=== PATIENT | female | born 1960 | race Caucasian/White ===

== ENCOUNTER 2022-07-27 08:23 | Outpatient (CLI) | payer OTHER, SELFPAY ==
--- OUTSIDE RECORDS SUMMARY | 2022-07-27 08:41 | XMS_ITS | Encounter Summary ---
:1960 Author Organization [place] Address [address] [place] [address] Care Team Providers Name Role Phone Taty Jacob Primary Care Provider Reason for Visit (Routine) - Closed Specialty Diagnoses / Procedures Referred By Contact Refer red To Contact Radiology / Radiology. Diagnoses Written Order. Nuclear Medicine Procedures NM INJECT [address] [place] [address] Phone: Referral ID Status Reason Start Date Expiration Date Visits Requ ested Visits Authorized [id number] Closed 02/22/2019 02/22/2020 1 1 Encounter Details Date Type Department Care Team Description 02/22/2019 Hospital Encounter [facility] Kelsi Estevez, Lalitha Imaging [address] [place] [address] [facility] [phone] [address] [place] [address] (Wo rk) Social History Tobacco Use Types Packs/Day Years Used Date Smoking Tobacco: Former Cigarettes 1 20 Smokeless Tobacco: Never Comments: 07/2008 Alcohol Use Standard Drinks/Week Comments Yes 0 (1 standard drink = 0.6 oz pure alcoho l) very little Sex Assigned at Date Recorded Not on file documented as of this encounter Medications at Time of Discharge Medication Sig Dispensed Refills Start Date End Date CALCIUM + D 600-200 ONE TABLET DAily 0 12/17/2009 MG-UNIT PO TABS WITH MEALS cholecalciferol (VITAMIN Take 1 tablet by 0 11/07 D) 1000 UNIT tablet mouth daily. docusate sodium 100 MG Take 100 mg by mouth 60 tablet 1 tablet 2 times daily fish oil-omega-3 fatty Take 3 capsules by 0 11/07 acids (FISH OIL) 1000 MG mouth daily. Pt is capsule taking 3000 mg total per day Nkglmqlblaq-Gqzpjihzx-Rhj Take by mouth. 0 2011 C-Mn (GLUCOSAMINE 1500 COMPLEX) CAPS ibuprofen (ADVIL,MOTRIN) Take 1 tablet by 100 tablet 0 03/09 800 MG tabletIndications: mouth every 8 hours Neck pain as needed for pain. Minoxidil (ROGAINE EX) Externally apply 0 topically. MULTI-VITAMIN OR TABS ONE TABLET DAILY 3 12/18/19 10 polyethylene glycol Take 17 g by mouth 510 g 1 09/13/19 14 (MIRALAX) daily as needed powderIndications: Constipation documented as of this encounter Plan of Treatment Not on filedocumented as of this encounter Procedures Procedure Name Priority Date/Time Associated Diagnosis Comme nts NM PARATHYROID Routine 02/22/2019 11:11 Hyperparathyroidism (H ) Results for this PLANAR W/SPECT & CT AM CDT procedur e are in DUAL the results section. documented in this encounter Results NM Parathy Plnr Img w Helder Spect & CT (02/22/2019 11:11 AM CDT) Anatomical Region Laterality Modality Neck Nuclear Medicine Specimen (Source) Anatomical Location Collection Method / Collectio n Time Received Time / Laterality Volume Impressions 02/22/2019 3:51 PM CDT IMPRESSION: Large mass measuring up to 3.7 cm posterior to the right lobe of the thyroid with imaging charact eristics of a parathyroid adenoma. However, this is much larger th an expected and malignancy cannot be excluded. Consider biopsy. CANYD HINES MD Narrative 02/22/2019 3:51 PM CDT NUCLEAR MEDICINE PARATHYROID DUAL ISOTOPE WITH HELDER (SPECT) AND CT 02/22/2019 11:11 AM HISTORY: Hyperparathyroidism (H). COMPARISON: None. TECHNIQUE: The patient received I-123 or ally and Tc-99 Cardiolite injected intravenously. Dynamic images w ere obtained of the thyroid gland following Cardiolite administratio n. Iodine images were obtained of the thyroid with subtraction from the Cardiolite images. SPECT CT images obtained for possible localizatio n. DOSE: 955 uCi I-123 caps @0735. 28.8 mCi Tc-99m MIBI @0945 FINDINGS: There is a large low-density n odule measuring 3.4 x 3.7 cm posterior to the right lobe of the thyro id (series 1002, image 53) that demonstrates sestamibi uptake and n o iodine uptake. Procedure Note Candy Hines MD - 02/22/2019Forma tting of this note might be different from the original. NUCLEAR MEDICINE PARATHYROID DUAL ISOTOP E WITH HELDER (SPECT) AND CT 02/22/2019 11:11 AM HISTORY: Hyperparathyroidism (H). COMPARISON: None. TECHNIQUE: The patient received I-123 or ally and Tc-99 Cardiolite injected intravenously. Dynamic images w ere obtained of the thyroid gland following Cardiolite administratio n. Iodine images were obtained of the thyroid with subtraction from the Cardiolite images. SPECT CT images obtained for possible localizatio n. DOSE: 955 uCi I-123 caps @0735. 28.8 mCi Tc-99m MIBI @0945 FINDINGS: There is a large low-density n odule measuring 3.4 x 3.7 cm posterior to the right lobe of the thyro id (series 1002, image 53) that demonstrates sestamibi uptake and n o iodine uptake. IMPRESSION: Large mass measuring up to 3 .7 cm posterior to the right lobe of the thyroid with imaging charact eristics of a parathyroid adenoma. However, this is much larger th an expected and malignancy cannot be excluded. Consider biopsy. CANDY HINES MD Kelsi Estevez MD [facility] [place] documented in this encounter Visit Diagnoses Not on filedocumented in this encounter Administered Medications Inactive Administered Medications - up to 3 most recent administrations Medication Order MAR Action Action Date Dose Rate Site technetium sestamibi 1 UD Given 02/22/2019 9:45 AM 28.8 millicur ies per study (Tc99m MiBi) CDT radioisotope injection 25 millicurie 25 millicurie, Intravenous, ONCE, On Jes 02/22/19 at 0945, For 1 dose, Radioisotope, supplied by and administered by Nuclear Medicine. *HW* documented in this encounter Care Teams Software Engineering Supervisor Relationship Specialty Start Date End Date Taty Jacob PCP - General Nurse Practitioner 10/11/13 [facility] [address] [place] [address] documented as of this encounter
--- OUTSIDE RECORDS SUMMARY | 2022-07-27 08:41 | XMS_ITS | Encounter Summary ---
:1960 Author Organization [place] Address [address] [place] [address] Care Team Providers Name Role Phone Taty Jacob Primary Care Provider Encounter Details Date Type Department Care Team Description 01/29/2017 Telephone [facility] Nurse Eva Galeana RN [facility] [address] [place] [address] Social History Tobacco Use Types Packs/Day Years Used Date Smoking Tobacco: Former Cigarettes 1 20 Smokeless Tobacco: Never Comments: 07/2008 Alcohol Use Standard Drinks/Week Comments Yes 0 (1 standard drink = 0.6 oz pure alcoho l) very little Sex Assigned at Date Recorded Not on file documented as of this encounter Miscellaneous Notes Telephone Encounter - Emma Galeana RN - 01/29/2017 8:43 AM CDT [facility]NA Triage Call Presenting Problem:I have had knee and hip replacements and before a dental procedure I need an RX for an antibiotic.I always get it from the dentist. I do not have any refill on this RX. Patient Recommendations/Teaching: Pt will call dental emergency number Routed to:none Emma Galeana RN [facility] documented in this encounter Plan of Treatment Not on filedocumented as of this encounter Visit Diagnoses Not on filedocumented in this encounter Care Teams Acid Supervisor Relationship Specialty Start Date End Date Taty Jacob PCP - General Nurse Practitioner 10/11/13 [facility] [address] [place] [address] documented as of this encounter
--- OUTSIDE RECORDS SUMMARY | 2022-07-27 08:41 | XMS_ITS | Clinical Summary ---
:1960 Author Organization [facility] [place] [address] Care Team Providers Name Role Phone Jordan Flood Phys Of Primary Care Provider Unavailable Allergies Active Allergy Reactions Severity Noted Date Comments Latex Rash 12/17/2009 Rash, redness, swelling Penicillins Anaphylaxis High 02/03/2019 Medications Medication Sig Dispensed Refills Start Date End Date Status finasteride (PROSCAR) 5 Take 2.5 mg by 0 12/18/2021 Active mg tablet mouth once daily. multivitamin Take 1 Capsule by 0 03/18/2022 Active capsuleIndications: mouth once daily. History of colon polyps, Polyp of colon, unspecified part of colon, unspecified type Active Problems Problem Noted Date Colon polyp 03/23/2022 Overview: Colonoscopy 03/2022 TA, repeat in 5 years , [facility] at [facility] Immunizations Name Administration Dates Next Due Tdap 02/03/2019 Social History Tobacco Use Types Packs/Day Years Used Date Smoking Tobacco: Former Smokeless Tobacco: Never Tobacco Cessation: Counseling Given: Yes Sex Assigned at Date Recorded Not on file Obstetrics History Last Filed Vital Signs Vital Sign Reading Time Taken Comments Blood Pressure 155/85 02/03/2019 6:39 PM CDT Pulse 77 02/03/2019 6:39 PM CDT Temperature 36.5 ??C (97.7 ??F) 02/03/2019 6:39 PM CDT Respiratory Rate 16 02/03/2019 6:39 PM CDT Oxygen Saturation 97% 02/03/2019 6:39 PM CDT Inhaled Oxygen Concentration - - Weight 127 kg (280 lb) 02/03/2019 6:39 PM CDT Height - - Body Mass Index - - Plan of Treatment Health Maintenance Due Date Last Done Comments Depression screening for age 12+ 1970 HIV for age 15-65 1973 BMI (ht and wt on same day) for age 0411/18/1976 18+ Hepatitis C screening for age 18-79 1976 Pap test for age 21-65 11/19/1979 Lipids for age 45-75 11/19/2003 Mammogram for age 45-75 11/19/2003 Zoster (shingles) series for age 50+ 2008 (1 of 2) COVID-19 vaccine series (4 - Booster 09/27/2021 08/02/2021, 11/28/2020, for Moderna series) 10/31/2020 Influenza for age 50-64 04/15/2022 Colonoscopy through age 75 03/18/2027 03/18/2022, , 03/18/2022 Tetanus booster 02/03/2029 02/03/2019 Tdap Completed 02/03/2019 Results Not on filefrom Last 3 Months Insurance Payer Benefit Plan / Subscriber ID Effective Dates Phone Addre ss Type Group WC WORKERS COMP WC [place] [id number] 2020-Prese [address] [facility] [address] [place] [address] PREFERRED ONE PREFERRED ONE [id number] 2020-Presen [address] [place] [address] [address] [place] [place] [address] Annalisa Jacob Workers Comp Self 1960 [id number] [place] [address] Annalisa Jacob Personal/Family Self 1960 [address] [place]) [place] [address] Care Teams Sprinkling System Installer Relationship Specialty Start Date End Date Jordan Flood Phys Of PCP - General 02/03/19
--- OUTSIDE RECORDS SUMMARY | 2022-07-27 08:41 | XMS_ITS | Clinical Summary ---
:1960 Author Organization [facility] Address [address] [place] [address] Care Team Providers Name Role Phone Taty Jacob Primary Care Provider Allergies Active Allergy Reactions Severity Noted Date Comments Latex 12/17/2009 Rash, redness, swelling Penicillins 12/13/2003 Medications Medication Sig Dispensed Refills Start Date End Date Status MULTI-VITAMIN OR TABS ONE TABLET DAILY 3 12/17/2009 Active CALCIUM + D 600-200 ONE TABLET DAily 0 12/17/2009 Active MG-UNIT PO TABS WITH MEALS ibuprofen Take 1 tablet by 100 tablet 0 03/09/2011 A ctive (ADVIL,MOTRIN) 800 MG mouth every 8 tabletIndications: hours as needed Neck pain for pain. Glucosamine-Chondroit- Take by mouth. 0 11/08/2011 Active Vit C-Mn (GLUCOSAMINE 1500 COMPLEX) CAPS cholecalciferol Take 1 tablet by 0 11/08/2011 Active (VITAMIN D) 1000 UNIT mouth daily. tablet fish oil-omega-3 fatty Take 3 capsules 0 11/08/2011 Active acids (FISH OIL) 1000 by mouth daily. MG capsule Pt is taking 3000 mg total per day Minoxidil (ROGAINE EX) Externally apply 0 Active topically. docusate sodium 100 MG Take 100 mg by 60 tablet 1 09/13/2013 Active tablet mouth 2 times daily polyethylene glycol Take 17 g by 510 g 1 09/13/2013 Active (MIRALAX) mouth daily as powderIndications: needed Constipation Active Problems Problem Noted Date Right hip pain 06/04/2013 Osteoarthritis of both hips 06/04/2013 Weight loss, intentional 03/16/2013 S/P hysterectomy 03/04/2013 Basal cell carcinoma of multiple sites 03/04/2013 Abnormal glucose 12/15/2012 Overview: Problem list name updated by automated p rocess. Provider to review Alopecia 12/06/2012 Lumbago 11/21/2012 Left hip pain 11/21/2012 SI (sacroiliac) joint dysfunction 11/08/2012 Tubular adenoma 11/08/2011 Hyperplastic colon polyp 11/08/2011 Obesity, Class III, BMI 40-49.9 (morbid obesity) 11/07 Anxiety 08/31/2010 Achilles bursitis or tendinitis 06/17/2010 CARDIOVASCULAR SCREENING; LDL GOAL LESS THAN 160 06/14 Elevated blood pressure reading without diagnosis of h ypertension 01/02/2009 Backache 02/14/2006 Overview: Problem list name updated by automated p rocess. Provider to review Pain in limb 02/14/2006 Resolved Problems Problem Noted Date Resolved Date Sacroiliac strain 05/24/2012 06/28/2012 Pain in joint, pelvic region and thigh 05/14/2010 1 Aftercare following joint replacement 01/13/2010 Knee joint replacement by other means 01/13/2010 Achilles tendinitis 03/08/2008 04/18/2008 Tobacco use disorder 02/04/2005 12/04/2008 Obesity 02/04/2005 12/06/2012 Overview: Problem list name updated by automated p rocess. Provider to review Immunizations Name Administration Dates Next Due Influenza (IIV3) PF 06/06/2012, 06/15/2008 TD (ADULT, 7+) 07/15/2003 Tdap (Adacel,Boostrix) 06/06/2012 Family History Medical History Relation Comments Obesity Brother 1 Respiratory Father sarcoidosis Cancer Maternal Grandfather at 50's-60 's YOA, stomach CA Neurologic Disorder Maternal Grandmother at 80's, h ad alzheimer's Family History Negative Mother Cancer Paternal Grandfather 60's of aj ng [place],smoker C.A.D. Paternal Grandmother late 30's of [place] Obesity Sister 1-HTN Breast Cancer No family hx of Cancer - colorectal No family hx of Relation Status Comments Brother Father Alive Maternal Grandfather Maternal Grandmother Mother Alive Paternal Grandfather Paternal Grandmother Sister Social History Tobacco Use Types Packs/Day Years Used Date Smoking Tobacco: Former Cigarettes 1 20 Smokeless Tobacco: Never Comments: 07/2008 Alcohol Use Standard Drinks/Week Comments Yes 0 (1 standard drink = 0.6 oz pure alcoho l) very little Sex Assigned at Date Recorded Not on file Last Filed Vital Signs Vital Sign Reading Time Taken Comments Blood Pressure 130/83 10/11/2013 9:46 AM MILL HOUSE SUPERVISOR Pulse 77 10/11/2013 9:46 AM MILL HOUSE SUPERVISOR Temperature 36.8 ??C (98.3 ??F) 10/11/2013 9:46 AM MILL HOUSE SUPERVISOR Respiratory Rate 18 10/11/2013 9:46 AM MILL HOUSE SUPERVISOR Oxygen Saturation 99% 10/11/2013 9:46 AM MILL HOUSE SUPERVISOR Inhaled Oxygen Concentration - - Weight 117.9 kg (260 lb) 10/11/2013 9:46 AM MILL HOUSE SUPERVISOR Height 180.3 cm (5' 11) 10/11/2013 9:46 AM MILL HOUSE SUPERVISOR Body Mass Index 36.26 10/11/2013 9:46 AM MILL HOUSE SUPERVISOR Plan of Treatment Health Maintenance Due Date Last Done Comments ADVANCE CARE PLANNING 1960 ANNUAL REVIEW OF HM ORDERS 1960 CT COLONOGRAPHY 1960 FIT-DNA (Cologuard) 1960 FIT 1960 FLEX SIG 1960 COVID-19 Vaccine (#1) 05/20/1959 HIV SCREENING 1973 HEPATITIS C SCREENING 1976 LUNG CANCER SCREENING 2008 YEARLY PREVENTIVE VISIT 11/07/2012 11/08/2011, 12/04/2008, 02/11/2006, Additional history exists DEXA 11/15/2014 11/16/2011, 06/12/2009, 04/12/2006, Additional history exists MAMMO SCREENING 03/22/2015 03/22/2013, 02/07/2012, 02/04/2011, Additional history exists LIPID 12/07/2017 12/07/2012, 11/08/2011, 12/17/2009, Additional history exists ZOSTER IMMUNIZATION (2 of 02/07/2019 12/13/2018 2) PHQ-2 (once per calendar 08/15/2021 year) COLONOSCOPY 12/02/2021 12/03/2011, 03/03/2009 COLORECTAL CANCER 12/02/2021 SCREENING INFLUENZA VACCINE (#1) 2022 05/17/2017, 05/25/2016, 06/03/2015, Additional history exists DTAP/TDAP/TD IMMUNIZATION 06/06/2022 06/06/2012, 01/29/2004 , (4 - Td or Tdap) 07/15/2003 PAP Discontinued 12/04/2008, 02/11/2006, 12/04/2002, Additional history exists IPV IMMUNIZATION Aged Out No longer eligi ble based on patient 's age to complete this topic MENINGITIS IMMUNIZATION Aged Out No longe r eligible based on patient 's age to complete this topic Pneumococcal Vaccine: Aged Out No longer eligible Pediatrics (0 to 5 Years) based on patient's age and At-Risk Patients (6 to to co mplete this topic 64 Years) Insurance Payer Benefit Plan / Subscriber ID Effective Phone Address T ype Group Dates WORK COMP WC OTHER [id number] 2011-Pres [phone] [place] [address] PREFERREDONE PREFERREDONE [place] [id number] 2012-Prese [phone] [address] PPO ADVANTAGE nt [address] [place] [address] [phone] [facility] [address] (Home) [place], [place] [phone] (Work) Annalisa Jacob Personal/Family Self [phone] [id number] [facility] [address] (Home) [place], [place] [phone] (Work) [id number],STAT Worker's Employer 1960 [phone] [employer] [employer] [place] Compensation [address] ([address]) [address] [place] [address] Care Teams Receiving And Processing Supervisor Relationship Specialty Start Date End Date Taty Jacob PCP - General Nurse Practitioner 10/11/13 [facility] [address] [place] [address]
--- OUTSIDE RECORDS SUMMARY | 2022-07-27 08:41 | XMS_ITS | Encounter Summary ---
:1960 Author Organization [place] Address [facility] [place] [address] Care Team Providers Name Role Phone Pam Walters MD Primary Care Provider Reason for Visit (Routine) - Closed Specialty Diagnoses / Procedures Referred By Contact Refer red To Contact Radiology / Radiology. Diagnoses R#NA, Epic Order, Time per Eriberto Sh Xray Procedures XR JOINT INJ ASP [facility] RT [address] [place] [address] Phone: Referral ID Status Reason Start Date Expiration Date Visits Requ ested Visits Authorized [id number] Closed 08/13/2013 08/10/2014 1 1 Encounter Details Date Type Department Care Team Description 08/14/2013 Hospital Encounter [facility] Jason Logan Imaging MD Je [address] [facility] [place] [address] PA [phone] [facility] [address] [place] [address] (Wo rk) Social History Tobacco Use Types Packs/Day Years Used Date Smoking Tobacco: Former Cigarettes 1 20 Smokeless Tobacco: Never Comments: 07/2008 Alcohol Use Standard Drinks/Week Comments Yes 0 (1 standard drink = 0.6 oz pure alcoho l) very little Sex Assigned at Date Recorded Not on file documented as of this encounter Last Filed Vital Signs Vital Sign Reading Time Taken Comments Blood Pressure 147/96 08/14/2013 11:29 AM EVENTS AND PROMOTIONS ASSISTANT Pulse 93 08/14/2013 11:29 AM EVENTS AND PROMOTIONS ASSISTANT Temperature - - Respiratory Rate - - Oxygen Saturation 98% 08/14/2013 11:29 AM EVENTS AND PROMOTIONS ASSISTANT Inhaled Oxygen Concentration - - Weight - - Height - - Body Mass Index - - documented in this encounter Discharge Instructions Discharge InstructionsChastity Roberts - 08/14/2013 11:36 AM CST Orthopedic Discharge Instructions: After Your Injection or Aspiration Patient Name: Annalisa Jacob Today's Date: August 14, 2013 The doctor who performed your {IR RAD ORTHO INJECTION/ASPERATION PROCEDURE:[id number]} was Dr[facility] in the General radiology Department Care of needle site ?? If you have new numbness down your leg, this may last up to 6 hours, but it should go away. You may need help with walking until your leg feels normal. ?? Over the next 24 to 48 hours, pain at the needle site may increase before it gets better. ?? For the next 48 hours, use ice packs for 15 minutes, three to four times a day for pain. ?? If you have a bandage, you may remove it the next morning. ?? No tub baths, hot tubs or swimming for 48 hours. You may shower the next day. Activity ?? Do not drive until morning. ?? Limit your activity based on your pain level. Follow your doctor???s orders for activity. ?? You may eat a normal diet. ?? If you had sedation, - You may feel sleepy, forgetful or unsteady. - Do not drink alcohol for 24 hours. Medicines ?? If you take aspirin or platelet inhibitors, you can restart them tomorrow. ?? Restart all other medicines today at your regular dose, including Coumadin (warfarin). ?? If you are restarting Coumadin, talk to your doctor about having your INR checked. If you had a steroid shot ?? The medicine should help reduce swelling and pain. This may take from 7 to 10 days. ?? Side effects from the shot will be mild and go away in 2 to 3 days. Common side effects may include: - Insomnia (trouble sleeping). - Heartburn. - Flushed face. - Water retention (bloating or fluid build-up). - Increased appetite (feeling more hungry than usual). - Increased blood sugar. If you have diabetes, watch your blood sugar closely. If needed, call your doctor to help you control your blood sugar. Some patients will get lasting relief from a single shot. Others may require up to three shots to get results. If you have more than one steroid shot, they should be given two weeks apart. Some patients do not have relief of symptoms. Follow-up: With your Doctor Call your doctor or go to the Emergency Room if you have severe pain, fever or problems with bowel or bladder control. TS AND PROMOTIONS ASSISTANT documented in this encounter Medications at Time of Discharge Medication Sig Dispensed Refills Start Date End Date CALCIUM + D 600-200 ONE TABLET DAily 0 12/17/2009 MG-UNIT PO TABS WITH MEALS cholecalciferol (VITAMIN Take 1 tablet by 0 11/07 D) 1000 UNIT tablet mouth daily. fish oil-omega-3 fatty Take 3 capsules by 0 11/07 acids (FISH OIL) 1000 MG mouth daily. Pt is capsule taking 3000 mg total per day Wkdsyzserlo-Zzfzduamo-Nd Take by mouth. 0 012 t C-Mn (GLUCOSAMINE 1500 COMPLEX) CAPS ibuprofen (ADVIL,MOTRIN) Take 1 tablet by 100 tablet 0 03/09 800 MG mouth every 8 hours tabletIndications: Neck as needed for pain. pain Minoxidil (ROGAINE EX) Externally apply 0 topically. MULTI-VITAMIN OR TABS ONE TABLET DAILY 3 12/18/19 10 docusate sodium 100 MG Take 100 mg by mouth 60 tablet 1 09/13/2013 tablet daily as needed for constipation polyethylene glycol Take 17 g by mouth 2 510 g 1 201209/13/2013 (MIRALAX) powder times daily UNABLE TO Take 3.75 mg by 14 tablet 0 07/25/2013 4 FINDIndications: Morbid mouth every morning obesity (H) Qsymia 3.75/23mg UNABLE TO Qsymia 7.5mg/46mg 30 tablet 1 07/25/2013 014 FINDIndications: Morbid Si tablet in am obesity (H) documented as of this encounter Plan of Treatment Not on filedocumented as of this encounter Procedures Procedure Name Priority Date/Time Associated Diagnosis Comme nts XR JOINT INJECTION Routine 08/14/2013 12:06 Osteoarthritis of left Results for this MAJOR RIGHT PM EVENTS AND PROMOTIONS ASSISTANT hip procedure are i n the results section. documented in this encounter Visit Diagnoses Not on filedocumented in this encounter Administered Medications Inactive Administered Medications - up to 3 most recent administrations Medication Order MAR Action Action Date Dose Rate Site BUPivacaine (MARCAINE) injection Given 08/14/2013 12:05 PM EVENTS AND PROMOTIONS ASSISTANT 4 mLs 0.5% 150 mg (30 mL), INTRA-ARTICULAR, ONCE, On Tue08/14/13 at 1200, For 1 dose iopamidol ([id number]) 41% solution 10 mL Given 08/14/2013 11:57 AM EVENTS AND PROMOTIONS ASSISTANT 2 mLs 10 mL, INTRA-ARTICULAR, ONCE, On Tue08/14/13 at 1200, For 1 dose Lidocaine 1 % injection 5 mL Given 08/14/2013 11:56 AM EVENTS AND PROMOTIONS ASSISTANT 3 mLs 5 mL, Injection, ONCE, On Tue08/14/13 at 1200, For 1 dose triamcinolone acetonide (KENALOG-40) Given 08/14/2013 12:[address] 40 mg injection 40 mg 40 mg, INTRA-ARTICULAR, ONCE, On Tue08/14/13 at 1200, For 1 dose documented in this encounter Care Teams Lens Grinder Rough Relationship Specialty Start Date End Date Pam Walters MD PCP - General Family Practice 03/12/10 10/10/[address] [address] documented as of this encounter
--- OUTSIDE RECORDS SUMMARY | 2022-07-27 08:41 | XMS_ITS | Encounter Summary ---
:1960 Author Organization [facility] Address [address] [place] [address] Care Team Providers Name Role Phone CecilTaty Primary Care Provider Encounter Details Date Type Department Care Team Description 02/22/2019 Travel Social History Tobacco Use Types Packs/Day Years Used Date Smoking Tobacco: Former Cigarettes 1 20 Smokeless Tobacco: Never Comments: 07/2008 Alcohol Use Standard Drinks/Week Comments Yes 0 (1 standard drink = 0.6 oz pure alcoho l) very little Sex Assigned at Date Recorded Not on file documented as of this encounter Plan of Treatment Not on filedocumented as of this encounter Visit Diagnoses Not on filedocumented in this encounter Care Teams Foot Gatherer Relationship Specialty Start Date End Date Taty Jacob PCP - General Nurse Practitioner 10/11/13 [facility] [address] [place] [address] documented as of this encounter
--- OUTSIDE RECORDS SUMMARY | 2022-07-27 08:41 | XMS_ITS | Encounter Summary ---
:1960 Author Organization [facility] Address [address] [place] [address]. [place] [address] Care Team Providers Name Role Phone Pam Walters MD Primary Care Provider Reason for Visit Reason Comments Weight Problem patients here for med check on Qsymia Encounter Details Date Type Department Care Team Description 09/13/2013 Office Visit [facility] Shelia Obesity, Cl ass III, BMI 40-49.9 (morbid obesity) (H) (Primary Dx); Weight Loss Clinic - MD K[facility] [address] [place] [address] [address] [place] [address] Social History Tobacco Use Types Packs/Day Years Used Date Smoking Tobacco: Former Cigarettes 1 20 Smokeless Tobacco: Never Comments: 07/2008 Alcohol Use Standard Drinks/Week Comments Yes 0 (1 standard drink = 0.6 oz pure alcoho l) very little Sex Assigned at Date Recorded Not on file documented as of this encounter Last Filed Vital Signs Vital Sign Reading Time Taken Comments Blood Pressure 132/84 09/13/2013 10:33 AM OCCUPATIONAL THER Pulse 93 09/13/2013 10:33 AM OCCUPATIONAL THER Temperature 36.5 ??C (97.7 ??F) 09/13/2013 10:33 AM OCCUPATIONAL THER Respiratory Rate 18 09/13/2013 10:33 AM OCCUPATIONAL THER Oxygen Saturation 100% 09/13/2013 10:33 AM OCCUPATIONAL THER Inhaled Oxygen Concentration - - Weight 117.5 kg (259 lb) 09/13/2013 10:33 AM OCCUPATIONAL THER Height 180.3 cm (5' 11) 09/13/2013 10:33 AM OCCUPATIONAL THER Body Mass Index 36.12 09/13/2013 10:33 AM OCCUPATIONAL THER documented in this encounter Progress Notes Shelia Cowart MD - 09/13/2013 10:25 AM CST Medical Weight Loss - Medication Check CHIEF COMPLAINT: Chief Complaint Patient presents with ??? Weight Problem patients here for med check on Qsymia HISTORY OF PRESENT ILLNESS (HPI): Patient returns today for medical weight loss follow-up visit. Patient was last seen by me on 08/01/2013 and has lost 7 pounds. Patient is surprised by her weight loss-didn't think she was losing weight. She continues on Qsymia-started after last visit and is now completing first month of 7.5mg/46mg dose. She denies adverse side effects of this medication including drowsiness or paresthesia She desires to continue Qsymia. She is no longer on metformin due to side effect of constipation-see last visit. Reports constipation improved since last visit. Using colace daily and polyethylene glycol 3-4 times a week. Denies abdominal pain. She continues dietary efforts-admits diet challenging over holidays.Patient is not seeing dietitian Today Continues her exercise program-mostly swimming. PAVS =315. Patient is not seeing PT today MEDICATIONS: Current Outpatient Prescriptions Medication Sig ??? docusate sodium 100 MG tablet Take 100 mg by mouth 2 times daily ??? polyethylene glycol (MIRALAX) powder Take 17 g by mouth daily as needed ??? UNABLE TO FIND Qsymia 7.5mg/46mg Si tablet in am ??? Minoxidil (ROGAINE EX) Externally apply topically. ??? Gpoorqczsqj-Dwlhoewys-Asq C-Mn (GLUCOSAMINE 1500 COMPLEX) CAPS Take by mouth. ??? cholecalciferol (VITAMIN D) 1000 UNIT tablet Take 1 tablet by mouth daily. ??? fish oil-omega-3 fatty acids (FISH OIL) 1000 MG capsule Take 3 capsules by mouth daily. Pt is taking 3000 mg total per day ??? ibuprofen (ADVIL,MOTRIN) 800 MG tablet Take 1 tablet by mouth every 8 hours as needed for pain. ??? MULTI-VITAMIN OR TABS ONE TABLET DAILY ??? CALCIUM + D 600-200 MG-UNIT PO TABS ONE TABLET DAily WITH MEALS ??? [DISCONTINUED] UNABLE TO FIND Take 3.75 mg by mouth every morning Qsymia 3.75/23mg ALLERGIES: Allergies Allergen Reactions ??? Latex Rash, redness, swelling ??? Penicillins PHYSICAL EXAMINATION: VITALS: BP 132/84 Pulse 93 Temp 97.7 ??F (36.5 ??C) (Oral) Resp 18 Ht 1.803 m (5' 11) Wt 117.482 kg (259 lb) BMI 36.14 kg/m2 SpO2 100% ? No GENERAL: Patient is a 52 year old year old female in no acute distress. Patient is alert and orientated x 4, pleasant and cooperative with exam. CARDIOVASCULAR: Regular rate and rhythm without murmurs, rubs, or gallops. RESPIRATORY: Lungs are clear to auscultation bilaterally, respiratory effort is normal. ASSESSMENT/PLAN: 1. Obesity, Class III, BMI 40-49.9 (morbid obesity) 2. Constipation PLAN: Continue Qsymia 7.5mg/46mg q day. Patient will call if needs refill prior to next visit. Has one month supply left currently. Patient advised to return to the clinic in 4-6 Weeks. Patient is to call the clinic if she experiences any adverse reactions. All of patient's questions were answered today. Follow-up with bariatric dietitian. Follow-up with bariatric physical therapist/continue exercise program ORDERS PLACED IN TODAY'S VISIT: No orders of the defined types were placed in this encounter. PATIONAL THER documented in this encounter Nursing Notes 09/13/2013 10:20 AM CST >> JUANY HOLLIS [facility] Sep 13, 2013 10:41 AM PAVS: 315 >> KARLEY NUNEZ [facility] Sep 13, 2013 10:37 AM Patient presents with: Weight Problem - patients here for med check on Phentermnie and Topiramate Initial BP 132/84 Pulse 93 Temp 97.7 ??F (36.5 ??C) (Oral) Resp 18 Ht 1.803 m (5' 11) Wt 117.482 kg (259 lb) BMI 36.14 kg/m2 SpO2 100% ? No Estimated Body mass index is 36.14 kg/(m^2) as calculated from the following: Height as of this encounter: 5' 11(1.803 m). Weight as of this encounter: 259 lb(117.482 kg). BP completed using cuff size: large documented in this encounter Plan of Treatment Not on filedocumented as of this encounter Visit Diagnoses Diagnosis Obesity, Class III, BMI 40-49.9 (morbid obesity) (H) - Primary Morbid obesity Constipation Unspecified constipation documented in this encounter Care Teams Knockup Worker Relationship Specialty Start Date End Date Pam Walters MD PCP - General Family Practice 03/12/[address] [address] documented as of this encounter
--- OUTSIDE RECORDS SUMMARY | 2022-07-27 08:41 | XMS_ITS | Encounter Summary ---
:1960 Author Organization [facility] Address [address] [place] [address]. [place] [address] Care Team Providers Name Role Phone Taty Jacob Primary Care Provider Reason for Visit Reason Comments Weight Problem Patient here for med check o n Qsymia Encounter Details Date Type Department Care Team Description 10/11/2013 Office Visit [facility] Shelia Cowart Obesity, Cl ass III, Weight Loss Clinic - MD [facility] BMI 40- 49.9 (morbid [place] obesity) (H) (Primary [address] [facility] [address] [place] [address] Social History Tobacco Use Types [...] Comments Blood Pressure 130/83 10/11/2013 9:46 AM SALVAGE CLERK Pulse 77 10/11/2013 9:46 AM SALVAGE CLERK Temperature 36.8 ??C (98.3 ??F) 10/11/2013 9:46 AM SALVAGE CLERK Respiratory Rate 18 10/11/2013 9:46 AM SALVAGE CLERK Oxygen Saturation 99% 10/11/2013 9:46 AM SALVAGE CLERK Inhaled Oxygen Concentration - - Weight 117.9 kg (260 lb) 10/11/2013 9:46 AM SALVAGE CLERK Height 180.3 cm (5' 11) 10/11/2013 9:46 AM SALVAGE CLERK Body Mass Index 36.26 10/11/2013 9:46 AM SALVAGE CLERK documented in this encounter Progress Notes Shelia Cowart MD - 10/11/2013 9:28 AM CST Medical Weight Loss - Medication Check CHIEF COMPLAINT: Chief Complaint Patient presents with ??? Weight Problem Patient here for med check on Qsymia HISTORY OF PRESENT ILLNESS (HPI): Patient returns today for medical weight loss follow-up visit. Patient was last seen by me on 09/13/2013 and has gained 1 pound. She reports she she stopped her Qsymia approximately 2 weeks ago due to numbness in her fingers and feeling of coldness in her fingers. She states she also felt like this medication was not working forher for weight loss. She states she would like to take a break from weight loss medications for a few months and see whatshe can do with diet and exercise. We discussed possibly restarting phentermine in 10-12 weeks if she is not sucessful in losing weight with diet and exercise alone as phentermine has been effective for her in past. She did have some issues with constipation with phentermine but this was when she stared metformin which was likely the cause of most of her constipation. She continues dietary efforts and exercise program. She is exercising 6 days a week for 50 minutes, DLBC=752. Patient is not seeing dietitian today Patient is not seeing PT today MEDICATIONS: Current Outpatient Prescriptions Medication Sig ??? Minoxidil (ROGAINE EX) Externally apply topically. ??? Fywdbbdunlj-Smdlxqwil-Rlb C-Mn (GLUCOSAMINE 1500 COMPLEX) CAPS Take by [...] TABS ONE TABLET DAily WITH MEALS ??? docusate sodium 100 MG tablet Take 100 mg by mouth 2 times daily ??? polyethylene glycol (MIRALAX) powder Take 17 g by mouth daily as needed ALLERGIES: Allergies Allergen Reactions ??? Latex Rash, redness, swelling ??? Penicillins PHYSICAL EXAMINATION: VITALS: BP 130/83 Pulse 77 Temp 98.3 ??F (36.8 ??C) (Oral) Resp 18 Ht 1.803 m (5' 11) Wt 117.935 kg (260 lb) BMI 36.28 kg/m2 SpO2 99% ? No GENERAL: Patient is a 52 year old year old female in no acute distress. Patient is alert and orientated x 4, pleasant and cooperative with exam. CARDIOVASCULAR: Regular rate and rhythm without murmurs, rubs, or gallops. RESPIRATORY: Lungs are clear to auscultation bilaterally, respiratory effort is normal. ASSESSMENT/PLAN: 1. Obesity, Class III, BMI 40-49.9 (morbid obesity) PLAN: Formally discontinue Qsymia. Plan as above. Patient is advised to to return to the clinic in Other: 10-12 weeks Follow-up with bariatric dietitian. Follow-up with bariatric physical therapist/continue exercise program. All of patient's questions were answered and she is in agreement with this plan. This was a 15 minute visit with greater than 50% spent on counseling answering her questions and Discussing plan of care. ORDERS PLACED IN TODAY'S VISIT: No orders of the defined types were placed in this encounter. AGE CLERK documented in this encounter Nursing Notes 10/11/2013 9:50 AM CST >> Linnea Ibarra CMA [facility] Oct 11, 2013 9:50 AM Patient presents with: Weight Problem - Patient here for med check on Qsymia PAVS: 300 Initial BP 130/83 Pulse 77 Temp 98.3 ??F (36.8 ??C) (Oral) Resp 18 Ht 1.803 m (5' 11) Wt 117.935 kg (260 lb) BMI 36.28 kg/m2 SpO2 99% ? No Estimated Body mass index is 36.28 kg/(m^2) as calculated from the following: Height as of this encounter: 5' 11(1.803 m). Weight as of this encounter: 260 lb(117.935 kg). BP completed using cuff size: large documented in this encounter Plan of Treatment Not on filedocumented as of this encounter Visit Diagnoses Diagnosis Obesity, Class III, BMI 40-49.9 (morbid obesity) (H) - Primary Morbid obesity documented in this encounter Care Teams Senior Receptionist Relationship Specialty Start Date End Date Taty Jacob PCP - General Nurse Practitioner 10/11/13 [facility] [address] [place] [address] documented as of this encounter
--- OUTSIDE RECORDS SUMMARY | 2022-07-27 08:41 | XMS_ITS | Encounter Summary ---
:1960 Author Organization [facility] Address [address] [facility] [place] [address] Care Team Providers Name Role Phone Taty Jacob Primary Care Provider Reason for Visit Diagnostic Imaging NM (Routine) - Closed Specialty Diagnoses / Procedures Referred By Contact Refer red To Contact Radiology. Diagnoses Hyperparathyroidism (H) Kelsi Estevez MD Nuclear Medicine Procedures NM Parathy Plnr Img w Helder Spect & CT NM Parathyroid Planar w/Spect Dual Isotp ENDOCRINOLOGY [facility] [address] [place] [address] [place] [address] Referral ID Status Reason Start Date Expiration Date Visits Requ ested Visits Authorized [id number] Closed 01/04/2019 01/04/2020 1 1 Encounter Details Date Type Department Care Team Description 02/22/2019 [facility] Herb, Hyperparat hyroidism (H) Encounter [facility] Kelsi Ford MD [address] ENDOCRINOLOGY [place] [facility] [place] [address] [phone] [address] [place] [address] Social History Tobacco Use Types Packs/Day Years [...] capsule taking 3000 mg total per day Loiuejfhazu-Ekryoqldy-Htu Take by mouth. 0 2011 C-Mn (GLUCOSAMINE [...] be excluded. Consider biopsy. CANDY HINES MD Narrative 02/22/2019 3:51 PM CDT [...] biopsy. CANDY HINES MD Kelsi Estevez MD [facility] [place] ORDERABLES documented in this encounter Visit Diagnoses Diagnosis Hyperparathyroidism (H) Hyperparathyroidism, unspecified documented in this encounter Administered Medications Inactive Administered Medications - up to 3 most recent administrations Medication Order MAR Action Action Date Dose Rate Site sodium iodide I-123 radioisotope Given 02/22/2019 7:38 AM CDT 95 5 uCi capsule 800 uCi 800 uCi, Oral, ONCE, On Jes 02/22/19 at 0730, For 1 dose, Supplied by, and administered by Nuclear Medicine. *HW* documented in this encounter Care Teams Stone Grader Relationship Specialty Start Date End Date Taty Jacob PCP - General Nurse Practitioner 10/11/13 [facility] [address] [address] documented as of this encounter
--- OUTSIDE RECORDS SUMMARY | 2022-07-27 08:41 | XMS_ITS | Encounter Summary ---
:1960 Author Organization [facility] Address [address] [place] [address] Care Team Providers Name Role Phone Pam Walters MD Primary Care Provider Reason for Visit Reason Onset Date Comments Panel Management 09/20/2013 Encounter Details Date Type Department Care Team Description 09/20/2013 Telephone [facility] Jj Walters MD Panel Management [address] [address] [place] [address] (Wo rk) Social History Tobacco Use Types Packs/Day Years Used Date Smoking Tobacco: Former Cigarettes 1 20 Smokeless Tobacco: Never Comments: 07/2008 Alcohol Use Standard Drinks/Week Comments Yes 0 (1 standard drink = 0.6 oz pure alcoho l) very little Sex Assigned at Date Recorded Not on file documented as of this encounter Miscellaneous Notes Telephone Encounter - Imani Elizabeth - 09/20/2013 12:09 PM CST Panel Management Review Date of last visit with a [facility] provider: Dr. Walters on 11/08/2011. Date of next visit with a [facility] provider: None. Problem List Patient Active Problem List Diagnosis ??? Backache, unspecified ??? Pain in limb ??? Elevated Blood Pressure Reading without Diagnosis of Hypertension ??? CARDIOVASCULAR SCREENING; LDL GOAL LESS THAN 160 ??? Achilles bursitis or tendinitis ??? Anxiety ??? Tubular adenoma ??? Hyperplastic colon polyp ??? Obesity, Class III, BMI 40-49.9 (morbid obesity) ??? SI (sacroiliac) joint dysfunction ??? Lumbago ??? Left hip pain ??? Alopecia ??? Other abnormal glucose ??? S/P hysterectomy ??? Basal cell carcinoma of multiple sites ??? Weight loss, intentional ??? Right hip pain ??? Osteoarthritis of both hips Health Maintenance List Health Maintenance Topic Date Due ??? Influenza Vaccine (System Assigned) 05/15/2013 ??? Dexa Q3 Yr 11/15/2014 ??? Mammo Screen Q2 Yr (System Assigned) 03/22/2015 ??? Lipid Monitoring Q5 Years (No Inbasket) 12/07/2017 ??? Colon Cancer Screen (System Assigned) 12/02/2021 ??? Tetanus Q10 Yr 06/06/2022 For diabetic patients with hyperlipidemia, only choose diabetes. Patient has the following on her problem list: Depression / Dysthymia review Patient is due for: None Hypertension Review Blood pressure goal on problem list: Last three blood pressure readings: BP Readings from Last 3 Encounters: 09/13/13 132/84 08/14/13 147/96 07/28/13 137/85 Blood pressure: Passed Hyperlipidemia LDL goal on problem list: <160 Last LDL: LDL Cholesterol Calculated Date Value Range Status 12/07/2012 105 0 - 129 mg/dL Final LDL Cholesterol is the primary guide to therapy: LDL-cholesterol goal in high risk patients is <100 mg/dL and in very high risk patients is <70 mg/dL. LDL tested: Passed Tobacco : Passed Composite cancer screening Chart review shows that this patient is due/due soon for the following None PAP NIL 12/04/2008 Past Surgical History Procedure Date ??? C nonspecific procedure s/p x 1 ??? C nonspecific procedure 1997 L ovarian removal secondary to benign cyst ??? C nonspecific procedure 1997 s/p tubal ligation ??? Hysterectomy s/p hysterectomy & R ovary removed-fibroids ??? C nonspecific procedure 08/15 s/p cholecystectomy ??? C total knee arthroplasty 2010 right ??? Arthroscopy knee 2012 right Is hysterectomy listed in surgical history? Yes Is mastectomy listed in surgical history? No Tobacco History History Smoking status ??? Former Smoker -- 1.0 packs/day for 20 years ??? Types: Cigarettes Smokeless tobacco ??? Never Used Comment: 07/2008 Summary: Patient is due/failing the following: None - patient up to date Action needed: Routed to provider for review. Type of outreach: Questions for provider review: Need to know bp goal in problem list Please indicate office visit, lab, MTM, or nurse appt if needed. Indicate fasting or not fasting. db Chart routed to STRIAL COOK documented in this encounter Plan of Treatment Not on filedocumented as of this encounter Visit Diagnoses Not on filedocumented in this encounter Care Teams Funeral Counselor Relationship Specialty Start Date End Date Pam Walters MD PCP - General Family Practice 03/12/10 10/10/[address] [address] documented as of this encounter
--- OUTSIDE RECORDS SUMMARY | 2022-07-27 08:41 | XMS_ITS | Encounter Summary ---
:1960 Author Organization [facility] Address [address] [place] [address] Care Team Providers Name Role Phone Taty Jacob Primary Care Provider Encounter Details Date Type Department Care Team Description 01/14/2021 [facility] Provider, Histor ical Social History Tobacco Use Types Packs/Day Years [...] Priority Date/Time Associated Diagnosis Comme nts XR KNEE PORT RIGHT Routine 12/24/2009 12:00 AM Re sults for this 1/2 VIEWS CDT procedure are i n the results section. documented in this encounter Results XR Knee Port Right 1/2 Views (12/24/2009 12:00 AM CDT) Anatomical Region Laterality Modality Knee, Right Knee Right Other Specimen (Source) Anatomical Location Collection Method / Collectio n Time Received Time / Laterality Volume Narrative 12/24/2009 12:00 AM CDT See Historical Hospital Medical Record f or documentation Procedure Note Provider, Historical - 01/14/2021Formatt ing of this note might be different from the original. See Historical Hospital Medical Record f or documentation Historical Provider IMG DIAGNOSTIC IMAGING ORDER MONTSERRAT documented in this encounter Visit Diagnoses Not on filedocumented in this encounter Care Teams Drying Machine Receiver Relationship Specialty Start Date End Date Taty Jacob PCP - General Nurse Practitioner 10/11/13 [facility] [address] [place] [address] documented as of this encounter
--- OUTSIDE RECORDS SUMMARY | 2022-07-27 08:41 | XMS_ITS | Encounter Summary ---
:1960 Author Organization [facility] Address [address] [place] [address] Care Team Providers Name Role Phone Taty Jacob Primary Care Provider Reason for Visit (Routine) - Closed Specialty Diagnoses / Procedures Referred By Contact Refer red To Contact Radiology / Radiology. Diagnoses Hyperparathyroidism, unspecified Written Order. Sh Nuclear Medicine Procedures NM PARATHY PL W SPECT DUAL [address] [place] [address] Phone: Referral ID Status Reason Start Date Expiration Date Visits Requ ested Visits Authorized [id number] Closed 02/22/2019 02/22/2020 1 1 Encounter Details Date Type Department Care Team Description 02/22/2019 Hospital Encounter [facility] Kelsi Estevez [facility] [address] [place] [address] [facility] [phone] [address] [place] [address] (Wo rk) Social History Tobacco [...] capsule taking 3000 mg total per day Libgjsnnzgy-Tofnuucjt-Cyk Take by mouth. 0 2011 C-Mn (GLUCOSAMINE [...] and malignancy cannot be excluded. Consider biopsy. AVERY HINES MD Narrative 02/22/2019 3:51 PM CDT [...] and n o iodine uptake. Procedure Note Avery Hines MD - 02/22/2019Forma tting of this [...] and malignancy cannot be excluded. Consider biopsy. AVERY HINES MD Kelsi Estevez MD [facility] [place] ORDERABLES documented in this encounter Visit Diagnoses Not on filedocumented in this encounter Care Teams Sales Representative Rural Power Relationship Specialty Start Date End Date Taty Jacob PCP - General Nurse Practitioner 10/11/13 [facility] [address] [place] [address] documented as of this encounter
--- OUTSIDE RECORDS SUMMARY | 2022-07-27 08:42 | XMS_ITS | Encounter Summary ---
:1960 Author Organization [facility] Address [address] [place] [address]. [place] [address] Care Team Providers Name Role Phone Pam Walters MD Primary Care Provider Encounter Details Date Type Department Care Team Description 06/21/2013 Office Visit [facility] Weight Shelia Cowart MD [facility] Ed catherine Doctor, None, [address] [facility] [address] [place] [address] Social History Tobacco Use Types Packs/Day Years Used Date Smoking Tobacco: Former Cigarettes 1 20 Smokeless Tobacco: Never Comments: 07/2008 Alcohol Use Standard Drinks/Week Comments Yes 0 (1 standard drink = 0.6 oz pure alcoho l) very little Sex Assigned at Date Recorded Not on file documented as of this encounter Progress Notes Liz Mejia PT - 06/21/2013 11:32 AM CST Non Surgical Weight Loss Clinic Progress Note Review of the week: Limited by hip/knee pain Had another cortisone shot in opposite hip 3 weeks ago, still uncomfortable but able to sleep. Continues to swim daily, tolerance varies due to pain Wanting to continue to lose weight before thinking about joint replacement Doing LE exercises in pool Patient plan/goals for the until next follow up: Continue as tolerates, okay to give body rest as needed. Standardized Measures: PAVS:220 HAT SANDING MACHINE OPERATOR documented in this encounter Plan of Treatment Not on filedocumented as of this encounter Visit Diagnoses Not on filedocumented in this encounter Care Teams Button Breaker Operator Relationship Specialty Start Date End Date Pam Walters MD PCP - General Family Practice 03/12/10 10/10/[address] [address] documented as of this encounter
--- OUTSIDE RECORDS SUMMARY | 2022-07-27 08:42 | XMS_ITS | Encounter Summary ---
:1960 Author Organization [place] Address [address] [place] [address]. [place] [address] Care Team Providers Name Role Phone Pam Walters MD Primary Care Provider Encounter Details Date Type Department Care Team Description 06/26/[address] [facility] Weight Doctor, None, MD Management Clinic Ed catherine 3, Sh Wl Diet, RD [address] [facility] [address] [place] [address] Social History Tobacco Use Types [...] Sign Reading Time Taken Comments Blood Pressure - - Pulse - - Temperature - - Respiratory Rate - - Oxygen Saturation - - Inhaled Oxygen Concentration - - Weight 121 kg (266 lb 11.2 oz) 06/26/2013 11:23 AM BEEF SKINNER Height 180 cm (5' 10.87) 06/26/2013 11:23 AM BEEF SKINNER Body Mass Index 37.34 06/26/2013 11:23 AM BEEF SKINNER documented in this encounter Progress Notes Stormy Edwards - 06/26/2013 9:03 AM CST MEDICAL WEIGHT LOSS FOLLOW UP DIAGNOSIS: Obesity- Class II NUTRITION HISTORY: Breakfast: single packet oatmeal with raisins Lunch: bermudian yogurt with boca burger (, black samson, or tomato basil flavor), grapes Dinner: leftover chili with ground turkey or lettuce with hard boiled eggs and light dressing or vegetarian corn dog (150 calories, 8 gm protein, 2.5 gm fat) Snacks: 100 juju bermudian yogurt; skinny cow ice cream sandwich or low calorie fudgsicle Beverage Choices: water and decaf coffee Exercise: swimming daily with exception of Tuesday, 45 minutes; 60-75 minutes weekends Other: pt is nervous about upcoming holidays/food temptations at work ANTHOPOMETRICS: Initial Weight: 310 pounds Previous Weight: 272 pounds Current Weight: 266.7 pounds Weight Change: decrease 5.3 pounds BMI: 37.42 kg/m2 MEDICATIONS: Phentermine, metformin EVALUATION/PROGRESS TOWARDS GOALS: Previous Goals: Try new recipe- met Make list of non-food rewards and treat self along the way- met (pt plans to buy self new pair of jeans at 250 lbs) Continue to pre-plan meals, keeping healthy foods on hand- met Practice saying no to workplace treats- met Previous Nutrition Diagnosis: Obese class II related to excess energy intake as evidence by BMI of 37.81 kg/m2- no change, modified below Current Nutrition Diagnosis: Obese class II related to excess energy intake as evidence by BMI of 37.42 kg/m2 INTERVENTION: Nutrition Prescription: Recommend modified nutrient intake by decreasing energy intake Implementation: Meals and Snacks- 3 meals, 2 snacks daily Nutrition Education (Content): Discussed previous goals and determined new goals Encourage physical activity Supported patient in attempted weight loss and behavior changes Congratulated patient on successful weight loss Patient able to demonstrate understanding by discussing the importance of having a plan heading into the holidays Anticipate good compliance Goals: Practice self-control at work, having the mind set I make the rules for when to indulge in a controlled way Keep food journal on days outside of usual food routine Identify something done well/positive progress each night before bed Follow Up/Monitoring: Other - patient to follow up in 4 weeks Time Spent With Patient: [address], LD SKINNER documented in this encounter Plan of Treatment Not on filedocumented as of this encounter Visit Diagnoses Not on filedocumented in this encounter Care Teams Bilingual Inside Sales Representative Relationship Specialty Start Date End Date Pam Walters MD PCP - General Family Practice 03/12/10 10/10/[address] [address] documented as of this encounter
--- OUTSIDE RECORDS SUMMARY | 2022-07-27 08:42 | XMS_ITS | Encounter Summary ---
:1960 Author Organization [place] Address [address] [place] [address] Care Team Providers Name Role Phone Pam Walters MD Primary Care Provider Reason for Visit Reason Onset Date Comments Prior Authorization 08/01/2013 Qsymia Encounter Details Date Type Department Care Team Description 08/01/2013 Telephone [facility] Shelia Cowart Prior Auth orization Weight Management MD [facility] ([facility] [address] [place] [address] Social History Tobacco Use Types Packs/Day Years Used Date Smoking Tobacco: Former Cigarettes 1 20 Smokeless Tobacco: Never Comments: 07/2008 Alcohol Use Standard Drinks/Week Comments Yes 0 (1 standard drink = 0.6 oz pure alcoho l) very little Sex Assigned at Date Recorded Not on file documented as of this encounter Miscellaneous Notes Telephone Encounter - Obed Springer - 08/02/2013 8:14 AM CST Received reply from [facility]. Belviq is an excluded drug and even with PA it's denied. Call and leftmessage on answering machine for patient to call back. RANCE CASE MANAGER Telephone Encounter - Obed Springer - 08/01/2013 2:17 PM CST Initiated PA and completed. Faxed PA back to [facility]. Will await for reply. RANCE CASE MANAGER documented in this encounter Plan of Treatment Not on filedocumented as of this encounter Visit Diagnoses Not on filedocumented in this encounter Care Teams Glass Cylinder Flanger Relationship Specialty Start Date End Date Pam Walters MD PCP - General Family Practice 03/12/10 10/10/[address] [address] documented as of this encounter
--- OUTSIDE RECORDS SUMMARY | 2022-07-27 08:42 | XMS_ITS | Encounter Summary ---
:1960 Author Organization [place] Address [address] [place] [address] Care Team Providers Name Role Phone Pam Walters MD Primary Care Provider Reason for Visit Reason Comments Weight Loss follow up phentermine and me tformin Encounter Details Date Type Department Care Team Description 07/25/2013 Office Visit [facility] Sofya, Shelia Morbid obe sity (H) (Primary Dx); Weight Management MD [place] Other abno rmal glucose; Clinic [facility] [address] [facility] [address] [place] [address] Social History Tobacco Use Types [...] Sign Reading Time Taken Comments Blood Pressure 137/85 07/28/2013 4:48 PM CHILD CARE COOK Pulse 86 07/25/2013 10:37 AM CHILD CARE COOK Temperature 36.4 ??C (97.5 ??F) 07/25/2013 10:37 AM CHILD CARE COOK Respiratory Rate 18 07/25/2013 10:37 AM CHILD CARE COOK Oxygen Saturation 98% 07/25/2013 10:37 AM CHILD CARE COOK Inhaled Oxygen Concentration - - Weight 120.7 kg (266 lb) 07/25/2013 10:37 AM CHILD CARE COOK Height 180.3 cm (5' 11) 07/25/2013 10:37 AM CHILD CARE COOK Body Mass Index 37.1 07/25/2013 10:37 AM CHILD CARE COOK documented in this encounter Patient Instructions Patient InstructionsShelia Cowart MD - 07/25/2013 11:18 AM CST For Constipation: Continue Colace ( docusate sodium) 100mg by mouth twice a day-this is an jkyr-gqi-jvekjva medication Increase Miralax (polyethylene glycol) 17gms (one capful-to the line inside cap) daily-use daily You may also add prunes or prune juice daily if needed-consult with our dietitian if needed for this Increase fuids, especially water Increase exercise levels as able Try one of these today ; Milk of Magnesia 30 cc at bedtime OR Magnesium citrate (fbdw-zah-rzrxcqm) 1/2 of a bottle. Plan to be near a restroom immediately after taking this one. You may repeat the above MOM or Magnesium citrate a second day but if further problems call my office or see your regular physician. Please contact this clinic or your primary care provider if worsening constipation or abdominal paindevelops D CARE COOK documented in this encounter Progress Notes Shelia Cowart MD - 07/28/2013 5:08 PM CST Discussed bowel protocol with patient. She was provided with a written copy of bowel protocol. D CARE COOK Shelia Cowart MD - 07/25/2013 10:44 AM CST Medical Weight Loss - Medication Check CHIEF COMPLAINT: Chief Complaint Patient presents with ??? Weight Loss follow up phentermine and metformin HISTORY OF PRESENT ILLNESS (HPI): Patient returns today for medical weight loss follow-up visit. Patient was last seen by me on 06/14/2013 and has lost 3 pounds. She continues on Phentermine 37.5 mg. She reports that she discontinued metformin after developing side effects of dyspepsia, nausea, and worsening of constipation. She remains on polyethylene glycol and docosate sodium daily. Denies abdominal pain. Has 2 BMs per week currently. Discussed use of metformin XR but patient is not interested in this at this time. Discussed discontinuing phentermine due to constipation and she is in agreement with this. Patient expresses interest in trying another weight loss medication. Discussed the risks vs. benefits of Qsymia risks of drowsiness, mental status change, paresthesias, constipation and electrolytes changes. Discussed need for periodic lab monitoring. Discussed insurance issues and that only availableat select pharmacies. All questions regarding Qysmia were answered. After hearing the risks versus benefits of Qsymia patient expresses interest in beginnning this medication. She continues dietary efforts. Patient is seeing dietitian today Exercise 3 times a week for 45 min, [id number] by hip pain. Patient is not seeing PT today MEDICATIONS: Current Outpatient Prescriptions Medication Status Sig ??? polyethylene glycol (MIRALAX) powder Active Take 17 g by mouth 2 times daily ??? UNABLE TO FIND Active Take 3.75 mg by mouth every morning Qsymia 3.75/23mg ??? UNABLE TO FIND Active Qsymia 7.5mg/46mg Si tablet in am ??? docusate sodium 100 MG tablet Active Take 100 mg by mouth daily as needed for constipation ??? Minoxidil (ROGAINE EX) Active Externally apply topically. ??? Jlhmycjyugv-Xwtmxqwtp-Llp C-Mn (GLUCOSAMINE 1500 COMPLEX) CAPS Active Take by mouth. ??? cholecalciferol (VITAMIN D) 1000 UNIT tablet Active Take 1 tablet by mouth daily. ??? fish oil-omega-3 fatty acids (FISH OIL) 1000 MG capsule Active Take 3 capsules by mouth daily. Pt is taking 3000 mg total per day ??? ibuprofen (ADVIL,MOTRIN) 800 MG tablet Active Take 1 tablet by mouth every 8 hours as needed forpain. ??? MULTI-VITAMIN OR TABS Active ONE TABLET DAILY ??? CALCIUM + D 600-200 MG-UNIT PO TABS Active ONE TABLET DAily WITH MEALS ALLERGIES: Allergies Allergen Reactions ??? Latex Rash, redness, swelling ??? Penicillins PHYSICAL EXAMINATION: VITALS: BP 137/85 Pulse 86 Temp 97.5 ??F (36.4 ??C) (Oral) Resp 18 Ht 5' 11 (1.803 m) Wt 266 lb (120.657 kg) BMI 37.10 kg/m2 SpO2 98% GENERAL: Patient is a 52 year old year old female in no acute distress. Patient is alert and orientated x 4, pleasant and cooperative with exam. CARDIOVASCULAR: Regular rate and rhythm without murmurs, rubs, or gallops. RESPIRATORY: Lungs are clear to auscultation bilaterally, respiratory effort is normal. ABD: soft, non-tender, no HSM or masses, no rebound. ASSESSMENT/PLAN: 1. Morbid obesity 2. Other abnormal glucose 3. Constipation PLAN: Formally discontinue metformin due to GI side effects. Discontinue Phentermine due to tolerance and blood pressure Increase polyetheylene glycol to 17gms po bid. Start Qsymia. Prescriptions were given for Qysymia 3.75mg/23mg 1 po q am for 14 days as well as prescription for Qysmia 7.5/46mg 1 po q am to begin after first prescription. Will start prior-auth process. Discussed which pharmacies this prescription is available at. Patient is to return to the clinic in 4-6 Weeks. Patient is to call the clinic if she experiences any adverse reactions or worsening of constipation. Follow-up with bariatric dietitian. Follow-up with bariatric physical therapist. This was a 25 minute visit with greater than 50% spent on counseling regarding risks versus benefitsof Qsymia and counseling on constipation management, as well as answering patient's questions. ORDERS PLACED IN TODAY'S VISIT: No orders of the defined types were placed in this encounter. D CARE COOK documented in this encounter Nursing Notes 07/25/2013 10:40 AM CST >> JUANY IBARRA Wed Jul 25, 2013 10:40 AM Initial BP 137/90 Pulse 86 Temp 97.5 ??F (36.4 ??C) (Oral) Resp 18 Ht 5' 11 (1.803 m) Wt 266 lb (120.657 kg) BMI 37.10 kg/m2 SpO2 98% Estimated Body mass index is 37.10 kg/(m^2) as calculated from the following: Height as of this encounter: 5' 11(1.803 m). Weight as of this encounter: 266 lb(120.657 kg). . Juany Ibarra CMA documented in this encounter Plan of Treatment Not on filedocumented as of this encounter Visit Diagnoses Diagnosis Morbid obesity (H) - Primary Morbid obesity Other abnormal glucose Constipation Unspecified constipation documented in this encounter Care Teams Manager Chemical Relationship Specialty Start Date End Date Pam Walters MD PCP - General Family Practice 03/12/10 10/10/[address] [address] documented as of this encounter
--- OUTSIDE RECORDS SUMMARY | 2022-07-27 08:42 | XMS_ITS | Encounter Summary ---
:1960 Author Organization [place] Address [address] [place] [address] Care Team Providers Name Role Phone Pam Walters MD Primary Care Provider Reason for Visit Reason Comments Weight Problem fu med phentermine Encounter Details Date Type Department Care Team Description 05/03/2013 Office Visit [facility] Shelia Cowart Obesity, C lass III, Weight Management MD [place] BMI 40-49. 9 (morbid Clinic [place] obesity) (H) (Primary [address] [facility] [address] [place] [address] Social History Tobacco Use Types [...] Sign Reading Time Taken Comments Blood Pressure 124/84 05/03/2013 11:00 AM CDT large Pulse 91 05/03/2013 10:50 AM CDT Temperature 36.7 ??C (98 ??F) 05/03/2013 10:50 AM CDT Respiratory Rate 20 05/03/2013 10:50 AM CDT Oxygen Saturation 98% 05/03/2013 10:50 AM CDT Inhaled Oxygen Concentration - - Weight 122.9 kg (271 lb) 05/03/2013 10:50 AM CDT Height 180.3 cm (5' 11) 05/03/2013 10:50 AM CDT Body Mass Index 37.8 05/03/2013 10:50 AM CDT documented in this encounter Patient Instructions Patient InstructionsShelia Cowart MD - 05/03/2013 11:25 AM CDT Patient Instructions - Weight Loss Follow-up (1) Have any labs that were discussed at your appointment done as soon as possible. Orders have beenplaced in the [facility] system so you can have your labs done at any [facility] lab or [facility] lab ([facility]). - (2) Schedule your follow-up MD appointment in one month or as directed. (3) Continue to see our weight loss dietitian monthly. (4) Schedule your initial Exercise Evaluation or follow-up appointment with the physical Therapist through our clinic and continue to see this provider as directed. For these appointments to be free of charge, please be sure to schedule them by calling [facility] Weight Loss clinic [phone]. (5) Continue to diary or log your food intake and exercise and [facility] these [facility]. documented in this encounter Progress Notes Shelia Cowart MD - 05/03/2013 10:56 AM CDT Medical Weight Loss - Follow-up Visit CHIEF COMPLAINT: Chief Complaint Patient presents with ??? Weight Problem fu med phentermine HISTORY OF PRESENT ILLNESS (HPI): Patient returns today for medical weight loss follow-up visit. Patient was last seen by me on 03/30/2013 and has lost 8 pounds. She continues on phentermine. She denies adverse side effects, including insomnia or Palpitations. Constipation is stable. Plans to start polyethylene glycol daily. Is taking colace 1 time per day only. She desires to continue phentermine. She continues dietary efforts and exercise program. Patient is seeing dietitian as scheduled Patient is seeing PT as scheduled. MEDICATIONS: Current Outpatient Prescriptions Medication Sig ??? docusate sodium 100 MG tablet Take 100 mg by mouth daily as needed for constipation ??? phentermine (ADIPEX-P) 37.5 MG tablet Take 1 tablet (37.5 mg) by mouth every morning (before breakfast) ??? polyethylene glycol (MIRALAX) powder Take 17 g by mouth daily ??? Minoxidil (ROGAINE EX) Externally apply topically. ??? Ntwhisrmrei-Imxmmyanh-Lkn C-Mn (GLUCOSAMINE 1500 COMPLEX) CAPS Take by [...] PO TABS ONE TABLET DAily WITH MEALS ALLERGIES: Allergies Allergen Reactions ??? Latex Rash, redness, swelling ??? Penicillins PHYSICAL EXAMINATION: VITALS: BP 124/84 Pulse 91 Temp 98 ??F (36.7 ??C) (Oral) Resp 20 Ht 5' 11 (1.803 m) Wt 271 lb (122.925 kg) BMI 37.80 kg/m2 SpO2 98% ? No GENERAL: Patient is a 52 year old year old female in no acute distress. Patient is alert and orientated x 4, pleasant and cooperative with exam. CARDIOVASCULAR: Regular rate and rhythm without murmurs, rubs, or gallops. RESPIRATORY: Lungs are clear to auscultation bilaterally, respiratory effort is normal. ASSESSMENT/PLAN: 1. Obesity, Class III, BMI 40-49.9 (morbid obesity) PLAN: Continue phentermine . Prescription was given for phentermine. Patient is to return to the clinic in4-6 Weeks. Patient is to call the clinic if she experiences any adverse reactions. Follow-up with bariatric dietitian. Follow-up with bariatric physical therapist. ORDERS PLACED IN TODAY'S VISIT: Orders Placed This Encounter Procedures ??? FALL RISK ASSESSMENT documented in this encounter Nursing Notes 05/03/2013 11:20 AM CDT >> ELVER JUNG [facility] May 03, 2013 11:02 AM Patient presents with: Weight Problem - fu med phentermine Initial BP 139/90 Pulse 91 Temp 98 ??F (36.7 ??C) (Oral) Resp 20 Ht 5' 11 (1.803 m) Wt 271 lb (122.925 kg) BMI 37.80 kg/m2 SpO2 98% ? No Estimated Body mass index is 37.80kg/(m^2) as calculated from the following: Height as of this encounter: 5' 11(1.803 m). Weight as of this encounter: 271 lb(122.925 kg). BP completed using cuff size: large PAVS 360 Elver Jung LPN documented in this encounter Plan of Treatment Not on filedocumented as of this encounter Visit Diagnoses Diagnosis Obesity, Class III, BMI 40-49.9 (morbid obesity) (H) - Primary Morbid obesity documented in this encounter Care Teams Retail Advertising Sales Manager Relationship Specialty Start Date End Date Pam Walters MD PCP - General Family Practice 03/12/10 10/10/[address] [address] documented as of this encounter
--- OUTSIDE RECORDS SUMMARY | 2022-07-27 08:42 | XMS_ITS | Encounter Summary ---
:1960 Author Organization [place] Address [address] [place] [address]. [place] [address] Care Team Providers Name Role Phone Pam Walters MD Primary Care Provider Reason for Visit Reason Comments Musculoskeletal Problem Encounter Details Date Type Department Care Team Description 04/27/2013 Office Visit [facility] Lisa, Left f oot pain Clinic [place] Nelly Augustin PA-C (Primary Dx) [address] [facility] [address] [place] [id number] [id number] Social History Tobacco Use Types Packs/Day Years Used Date Smoking Tobacco: Former Cigarettes 1 20 Smokeless Tobacco: Never Comments: 07/2008 Alcohol Use Standard Drinks/Week Comments Yes 0 (1 standard drink = 0.6 oz pure alcoho l) very little Sex Assigned at Date Recorded Not on file documented as of this encounter Last Filed Vital Signs Vital Sign Reading Time Taken Comments Blood Pressure 128/85 04/27/2013 11:49 AM CDT Pulse 92 04/27/2013 11:49 AM CDT Temperature 36.6 ??C (97.9 ??F) 04/27/2013 11:49 AM CDT Respiratory Rate - - Oxygen Saturation 99% 04/27/2013 11:49 AM CDT Inhaled Oxygen Concentration - - Weight 124.7 kg (275 lb) 04/27/2013 11:49 AM CDT Height 180.3 cm (5' 11) 04/27/2013 11:49 AM CDT Body Mass Index 38.35 04/27/2013 11:49 AM CDT documented in this encounter Patient Instructions Patient InstructionsNelly Gonzalez PA-C - 04/27/2013 12:07 PM CDT 729.5 Left foot pain (primary encounter diagnosis) Comment: Plan: Otc aleve 2 tabs twice daily x 2 weeks. Use with food and stop if stomach burning or stomach pain. Also elevate and wear supportive shoes always. No barefoot walking. If symptoms fail to resolve or worsen please call and will give a referral to podiatry documented in this encounter Progress Notes Nelly Gonzalez PA-C - 04/27/2013 11:39 AM CDT SUBJECTIVE: Annalisa Jacob is a 52 year old female who presents to clinic today for the following health issues: Musculoskeletal problem/pain ?? Duration: about 2 weeks ?? Description Location: left foot ?? Intensity: 4/10 ?? Accompanying signs and symptoms: swelling and redness ?? History Previous similar problem: no Previous evaluation: none ?? Precipitating or alleviating factors: Trauma or overuse: YES- unsure Aggravating factors include: walking and overuse ?? Therapies tried and outcome: nothing Problem list and histories reviewed & adjusted, as indicated. Additional history: as documented Patient Active Problem List Diagnosis ??? Backache, [...] of multiple sites ??? Weight loss, intentional Past Surgical History Procedure Date ??? C nonspecific procedure s/p x 1 ??? C nonspecific procedure 1997 L ovarian removal secondary to benign cyst ??? C nonspecific procedure 1997 s/p tubal ligation ??? Hysterectomy s/p hysterectomy & R ovary removed-fibroids ??? C nonspecific procedure 08/15 s/p cholecystectomy ??? C total knee arthroplasty 2010 right ??? Arthroscopy knee 2013 right History Substance Use Topics ??? Smoking status: Former Smoker -- 1.0 packs/day for 20 years Types: Cigarettes ??? Smokeless tobacco: Never Used Comment: 07/2008 ??? Alcohol Use: Yes very little Family History Problem Relation Age of Onset ??? Cancer Maternal Grandfather at 50's-60's YOA, stomach CA ??? Neurological Maternal Grandmother at 80's, had alzheimer's ??? C.A.D. Paternal Grandmother late 30's of [place] ??? Cancer Paternal Grandfather 60's of lung CA,smoker ??? Family History Negative Mother ??? Respiratory Father sarcoidosis ??? Obesity Sister 1-HTN ??? Obesity Brother 1 ??? Colon CA No family hx of ??? Breast CA No family hx of Current Outpatient Prescriptions Medication Sig ??? docusate sodium 100 MG tablet Take 100 mg by mouth daily ??? phentermine (ADIPEX-P) 37.5 MG tablet Take 1 tablet (37.5 mg) by mouth every morning (before breakfast) ??? polyethylene glycol (MIRALAX) powder Take 17 g by mouth daily ??? Minoxidil (ROGAINE EX) Externally apply topically. ??? Jmbbjiqeowj-Dedwzxzem-Gcl C-Mn (GLUCOSAMINE 1500 COMPLEX) CAPS Take by [...] PO TABS ONE TABLET DAily WITH MEALS ROS: Constitutional, HEENT, cardiovascular, pulmonary, gi and gu systems are negative, except as otherwise noted. OBJECTIVE: BP 128/85 Pulse 92 Temp 97.9 ??F (36.6 ??C) (Oral) Ht 5' 11 (1.803 m) Wt 275 lb (124.739 kg) BMI 38.35 kg/m2 SpO2 99% ? No Body mass index is 38.35 kg/(m^2). GENERAL APPEARANCE: healthy, alert and no distress MS: extremities normal- no gross deformities noted Left foot, no swelling or erythema. TTP along lateral dorsum of foot. Full non painful rom ASSESSMENT/PLAN: 729.5 Left foot pain (primary encounter diagnosis) Comment: Plan: See Patient Instructions Nelly Gonzalez PA-C, [facility] Patient Instructions 729.5 Left foot pain (primary encounter diagnosis) Comment: Plan: Otc aleve 2 tabs twice daily x 2 weeks. Use with food and stop if stomach burning or stomach pain. Also elevate and wear supportive shoes always. No barefoot walking. If symptoms fail to resolve or worsen please call and will give a referral to podiatry documented in this encounter Nursing Notes 04/27/2013 11:40 AM CDT >> DANDRE KHAN Fri Apr 27, 2013 11:51 AM Patient presents with: Musculoskeletal Problem Initial BP 128/85 Pulse 92 Temp 97.9 ??F (36.6 ??C) (Oral) Ht 5' 11 (1.803 m) Wt 275 lb (124.739 kg) BMI 38.35 kg/m2 SpO2 99% ? No Estimated Body mass index is 38.35 kg/(m^2) as calculated from the following: Height as of this encounter: 5' 11(1.803 m). Weight as of this encounter: 275 lb(124.739 kg). BP completed using cuff size: large Health maintenance- up to date Dandre Khan CMA documented in this encounter Plan of Treatment Not on filedocumented as of this encounter Visit Diagnoses Diagnosis Left foot pain - Primary Pain in limb documented in this encounter Care Teams Business Services Manager Relationship Specialty Start Date End Date Pam Walters MD PCP - General Family Practice 03/12/10 10/10/[address] [address] documented as of this encounter
--- OUTSIDE RECORDS SUMMARY | 2022-07-27 08:42 | XMS_ITS | Encounter Summary ---
:1960 Author Organization [facility] Address [address] [place] [address] Care Team Providers Name Role Phone Pam Walters MD Primary Care Provider Taty Jacob Primary Care Provider Reason for Visit Reason Onset Date Comments Orders 07/04/2013 Encounter Details Date Type Department Care Team Description 07/04/2013 Telephone [facility] Mejia Banks, DO Orders [facility] [address] [place] [address], [address] [place] [address] [place] [address] Social History Tobacco Use Types Packs/Day Years Used Date Smoking Tobacco: Former Cigarettes 1 20 Smokeless Tobacco: Never Comments: 07/2008 Alcohol Use Standard Drinks/Week Comments Yes 0 (1 standard drink = 0.6 oz pure alcoho l) very little Sex Assigned at Date Recorded Not on file documented as of this encounter Miscellaneous Notes Telephone Encounter - Arpita Pleitez RN - 07/05/2013 10:08 AM CST Call placed to pt. Clarification- Patient received Right hip u/s guided injection by Dr. Banks 06/04/13. She is requesting left SI joint injection. Informed pt. would discuss with Dr. Logan and return her phone call. Per Dr. Logan okay to order right hip SI joint injection. He would like to see her in clinic to discuss surgical options 1-2 weeks after injection. Call placed to pt. LVM Informing herof information. Encouraged pt. To call clinic to schedule f/u appt. And await call from [facility] Radiology to schedule injection. Arpita Pleitez, RN INE TOOL REBUILDER Telephone Encounter - Mejia Banks - 07/04/2013 6:[address] Logan's notes, he would like to see the patient after her last hip injection to consider surgical options at that time, thus she should schedule a follow-up appointment with him for further evaluation. If an SI joint corticosteroid injection is deemed appropriate after discussion with him, Ican complete this at [facility] for improved pain control. Mejia Banks DO [facility] INE TOOL REBUILDER Telephone Encounter - Demetria Alford ATC - 07/04/2013 4:47 PM CST Pt was last seen by Dr Banks on 06/04/13 for a Left hip injection, she was previously seen by Dr Roth and Dr Logan. She is wondering if Dr Banks would be willing to place an order for an SI joint injection, she last had one on 12/20/12, Dr Roth had ordered it for her. Demetria Alford ATC INE TOOL REBUILDER documented in this encounter Plan of Treatment Not on filedocumented as of this encounter Visit Diagnoses Diagnosis Right hip pain - Primary Pain in joint, pelvic region and thigh documented in this encounter Care Teams Nurses Assistant Relationship Specialty Start Date End Date Pam Walters MD PCP - General Family Practice 03/12/10 10/10/[address] [address] Taty Jacob PCP - General Nurse Practitioner 10/11/13 [facility] [address] [place] [address] documented as of this encounter
--- OUTSIDE RECORDS SUMMARY | 2022-07-27 08:42 | XMS_ITS | Encounter Summary ---
:1960 Author Organization [facility] Address [address] [place] [address]. [place] [address] Care Team Providers Name Role Phone Pam Walters MD Primary Care Provider Encounter Details Date Type Department Care Team Description 05/10/[address] [facility] Weight Doctor, None, MD Management [facility] Ed catherine 3, Sh Wl Diet, RD [address] [place] [address] Social History Tobacco Use Types [...] - Inhaled Oxygen Concentration - - Weight 123.4 kg (272 lb) 05/10/2013 2:56 PM CDT Height - - Body Mass Index 37.94 05/03/2013 10:50 AM CDT documented in this encounter Progress Notes Stormy Edwards - 05/10/2013 2:36 PM CDT MEDICAL WEIGHT LOSS FOLLOW UP DIAGNOSIS: Obesity- Class II NUTRITION HISTORY: Breakfast: oatmeal raisin muffin (homemade) Lunch: veggie burgers, swazi yogurt, grapes Dinner: frozen low calorie entree or sliced turkey sandwich on whole bread, chicken and steam freshvegetables with sauce Snacks:17 animal crackers, string cheese, or skinny cow ice cream Beverage Choices: >64 oz. water Exercise: swimming - 6 days per week Other: Patient tracks intake 1x/week on [employer]- her intake is very consistent rotates throughabout 4 days of meal plans (she prefers this consistency) and typically hits about 1400 calories ANTHOPOMETRICS: Initial Weight: 310 pounds Previous Weight: 279 pounds Current Weight: 272 pounds Weight Change: decrease 7 pounds BMI: 37.81 kg/m2 MEDICATIONS: phentermine EVALUATION/PROGRESS TOWARDS GOALS: Previous Goals: Increase fruit/vegetable intake to 4/day- not met Try at least one new recipe- not met Journal intake once per week- met Previous Nutrition Diagnosis: Obese class III related to excess energy intake as evidence by BMI of 38.99 kg/m2 Current Nutrition Diagnosis: Obese class III related to excess energy intake as evidence by BMI of 37.81 kg/m2 INTERVENTION: Nutrition Prescription: Recommend modified nutrient intake by decreasing energy intake Implementation: Meals and Snacks: 3 meals, snacks only as needed/hungry Nutrition Education (Content): Discussed previous goals and determined new goals Encourage physical activity Supported patient in attempted weight loss and behavior changes Congratulated patient on successful weight loss Patient able to demonstrate understanding by emphasizing value of pre-planning meals ahead of time Anticipate good compliance Goals: Try new recipe (quinoa) Make list of non-food related rewards- treat self at weight loss milestones along the way (e.g. 10, 20 lbs) Continue pre-planning meals and keeping healthy foods on hands Say no when offered treats in the work place Follow Up/Monitoring: Other - patient to follow up in 4 weeks Time Spent With Patient: 25 Minutes T RELATIONS REPRESENTATIVE documented in this encounter Plan of Treatment Not on filedocumented as of this encounter Visit Diagnoses Not on filedocumented in this encounter Care Teams Steward/Stewardess Chief Cargo Vessel Relationship Specialty Start Date End Date Pam Walters MD PCP - General Family Practice 03/12/10 10/10/[address] [address] documented as of this encounter
--- OUTSIDE RECORDS SUMMARY | 2022-07-27 08:42 | XMS_ITS | Encounter Summary ---
:1960 Author Organization [facility] Address [address] [place] [address] Care Team Providers Name Role Phone Pam Walters MD Primary Care Provider Reason for Visit Reason Comments Follow Up NEAL talk or talk about injec tion Encounter Details Date Type Department Care Team Description 07/05/2013 Office Visit [facility] Hip osteoarthritis Orthopedic Care Jw Wooten MD (Primary Dx) [facility] ORTHOPEDICS [address] [facility] [address] [place] [address] [address] [place] [phone] (Wo rk) Social History Tobacco Use Types [...] Sign Reading Time Taken Comments Blood Pressure 129/83 07/05/2013 2:53 PM TOUR PRODUCTION SUPERVISOR Pulse - - Temperature - - Respiratory Rate - - Oxygen Saturation - - Inhaled Oxygen Concentration - - Weight 120.7 kg (266 lb) 07/05/2013 2:53 PM TOUR PRODUCTION SUPERVISOR Height 180.3 cm (5' 11) 07/05/2013 2:53 PM TOUR PRODUCTION SUPERVISOR Body Mass Index 37.1 07/05/2013 2:53 PM TOUR PRODUCTION SUPERVISOR documented in this encounter Patient Instructions Patient InstructionsUzMakenna gunn - 07/05/2013 3:52 PM CST *Follow up as needed or as discussed with your care provider *See Chart Note for specific details PRODUCTION SUPERVISOR documented in this encounter Progress Notes Jason Logan MD - 07/05/2013 2:54 PM CST HISTORY OF PRESENT ILLNESS: Annalisa Jacob is a 52 year old female who is seen in follow up for talk about surgical options and injections. Present symptoms: pain is better after Ultrasound guide injection into her right hip. She has pain now along the left SI joint. She's gotten good relief of this type of pain with SI joint injections inthe past. Treatments tried to this point: Injections: Steroid of the right hip: intra- articular performed via ultrasound PHYSICAL EXAM: BP 129/83 Ht 5' 11 (1.803 m) Wt 266 lb (120.657 kg) BMI 37.10 kg/m2 Body mass index is 37.10 kg/(m^2). GENERAL APPEARANCE: healthy, alert and no distress SKIN: no suspicious lesions or rashes NEURO: Normal strength and tone, mentation intact and speech normal VASCULAR: good pulses, and cappillary refill LYMPH: no lymphadenopathy PSYCH: mentation appears normal and affect normal/bright MSK: The patient ambulates without an antalgic gait. The patient is able to get on and off the exam tablewithout difficulty. Examination of the spine reveals a normal lordosis to the cervical and lumbar spine, and a normal kyphosis to the thoracic spine. There is no clinical evidence of scoliosis. The pelvis is clinically level. Trendelenberg is negative. The patient is non- tender to palpation over the greater trochanteric bursal region or piriformis fossa. With the hip flexed to 90 degrees, internal and external rotation is 20/40 respectively, with pain at extremes. The calves and thighs are symmetric, without atrophy and non-tender to palpation. Ирина's sign is negative, bilaterally. CMS is intact to the toes. Znwlrr-yv-saot testing her SI joint pain. IMAGING INTERPRETATION: None today ASSESSMENT / PLAN: SI joint pain, recurrent. I had a long discussion today with Annalisa about her pathologies. She was under the impression that there may be an arthroscopic suture that could be done for her right hip. I reviewed the MRI with her once again and felt that even though there is evidence of labral pathology, it is degenerative in nature and I would recommend a total hip arthroplasty as procedure for for her. She understands this now. She'll continue to get injections until the day or less effective and then consider the more invasive options. Return to clinic when necessary Zeb Logan MD Dept. Orthopedic Surgery [facility] Disclaimer: This note consists of symbols derived from keyboarding, dictation and/or voice recognition software. As a result, there may be errors in the script that have gone undetected. Please consider this when interpreting information found in this chart. PRODUCTION SUPERVISOR documented in this encounter Nursing Notes 07/05/2013 3:00 PM CST >> MAKENNA GARCIA [facility] Jul 05, 2013 2:55 PM Patient presents with: Follow Up For - NEAL talk or talk about injection Initial BP 129/83 Ht 5' 11 (1.803 m) Wt 266 lb (120.657 kg) BMI 37.10 kg/m2 Estimated Body mass index is 37.10 kg/(m^2) as calculated from the following: Height as of this encounter: 5' 11(1.803 m). Weight as of this encounter: 266 lb(120.657 kg). BP completed using cuff size: regular Delmi ApodacaEd, ATC documented in this encounter Plan of Treatment Not on filedocumented as of this encounter Visit Diagnoses Diagnosis Hip osteoarthritis - Primary Osteoarthrosis, unspecified whether gene ralized or localized, pelvic region and thigh documented in this encounter Care Teams Firer Automatic Stoker Relationship Specialty Start Date End Date Pam Walters MD PCP - General Family Practice 03/12/10 10/10/[address] [address] documented as of this encounter
--- OUTSIDE RECORDS SUMMARY | 2022-07-27 08:42 | XMS_ITS | Encounter Summary ---
:1960 Author Organization [facility] Address [facility] [place] [address] Care Team Providers Name Role Phone Pam Walters MD Primary Care Provider Reason for Visit (Routine) - Closed Specialty Diagnoses / Procedures Referred By Contact Refer red To Contact Radiology / Radiology. Diagnoses R#NA, Epic Order, Time per Eriberto Sh Xray Procedures XR JOINT INJ ASP [facility] RT [address] [place] [address] Phone: Referral ID Status Reason Start Date Expiration Date Visits Requ ested Visits Authorized [id number] Closed 08/13/2013 08/10/2014 1 1 Encounter Details Date Type Department Care Team Description 08/14/2013 [facility] Jason Logan rthritis of Encounter [facility] MD Je left hip [address] [place], [place] [address] [address] [facility] [phone] [address] [place] [address] Social History Tobacco Use Types Packs/Day Years [...] capsule taking 3000 mg total per day Ytlgobzmxdd-Nqihoewrz-Kn Take by mouth. 0 012 t C-Mn [...] left Results for this MAJOR RIGHT PM SUBSTANCE ABUSE RN hip procedure are i n the results section. documented in this encounter Results XR Joint Injection Aspiration Major Right (08/14/2013 12:06 PM SUBSTANCE ABUSE RN) Anatomical Region Laterality Modality Lower Extremity Right Computed Radiography Specimen (Source) Anatomical Location Collection Method / Collectio n Time Received Time / Laterality Volume Impressions 08/14/2013 12:14 PM SUBSTANCE ABUSE RN IMPRESSION: ??Successful intra-articular hip steroid/anesthetic injection as above. ? EVELIN TRAN MD Narrative 08/14/2013 12:14 PM SUBSTANCE ABUSE RN LEFT HIP STEROID / ANESTHETIC INJECTION WITH FLUOROSCOPIC GUIDANCE 08/14/2013 12:06 PM HISTORY: ??pain,Osteoarthrosis, unspecif ied whether generalized or localized, pelvic region and thigh PROCEDURE: Informed written consent was obtained. Using sterile technique, fluoroscopic guidance, and li docaine 1% as local anesthetic, a 22-gauge spinal needle was inserted into hip from an anterior approach at the lateral head-ne ck junction. ??Intra-articular placement of the needle was confirmed wi th the injection of less than 1 mL Isovue 200. ??Kenalog 40 mg mixed w ith 4 mL Marcaine 0.5% was injected. The patient tolerated the proc edure well. There were no apparent complications. ??Patient rated pain levels on a scale of 1-10 were as follows: Pre-procedure hip pain level: 4 Post-procedure hip pain level: 0 intermediate manager results are pending. Procedure Note Sy Tran MD - 08/14/2013Formatt ing of this note might be different from the original. LEFT HIP STEROID / ANESTHETIC INJECTION WITH FLUOROSCOPIC GUIDANCE 08/14/2013 12:06 PM HISTORY: pain,Osteoarthrosis, unspecifie d whether generalized or localized, pelvic region and thigh PROCEDURE: Informed written consent was obtained. Using sterile technique, fluoroscopic guidance, and li docaine 1% as local anesthetic, a 22-gauge spinal needle was inserted into hip from an anterior approach at the lateral head-ne ck junction. Intra-articular placement of the needle was confirmed wi th the injection of less than 1 mL Isovue 200. Kenalog 40 mg mixed wit h 4 mL Marcaine 0.5% was injected. The patient tolerated the proc edure well. There were no apparent complications. Patient rated pa in levels on a scale of 1-10 were as follows: Pre-procedure hip pain level: 4 Post-procedure hip pain level: 0 penitentiary results are pending. IMPRESSION IMPRESSION: Successful intra-articular h ip steroid/anesthetic injection as above. EVELIN TRAN MD Jason Logan MD IMG DIAGNOSTIC IMAGING ORDER MONTSERRAT documented in this encounter Visit Diagnoses Diagnosis Osteoarthritis of left hip Osteoarthrosis, unspecified whether gene ralized or localized, pelvic region and thigh documented in this encounter Care Teams Dispatch Lead Relationship Specialty Start Date End Date Pam Walters MD PCP - General Family Practice 03/12/10 10/10/[address] [address] documented as of this encounter
--- OUTSIDE RECORDS SUMMARY | 2022-07-27 08:42 | XMS_ITS | Encounter Summary ---
:1960 Author Organization [facility] Address [facility] [place] [address] Care Team Providers Name Role Phone Pam Walters MD Primary Care Provider Reason for Visit (Routine) - Closed Specialty Diagnoses / Procedures Referred By Contact Refer red To Contact Radiology / Radiology. Diagnoses Epic order Sh Xray Procedures XR SACROILIAC INJECTION RIGHT [address] [place] [address] Phone: Referral ID Status Reason Start Date Expiration Date Visits Requ ested Visits Authorized [id number] Closed 07/06/2013 07/06/2014 1 1 Encounter Details Date Type Department Care Team Description 07/09/2013 [facility] DO [address] [place] [address] [place], [place] [phone] [address] Social History Tobacco Use Types Packs/Day Years Used Date Smoking Tobacco: Former Cigarettes 1 20 Smokeless Tobacco: Never Comments: 07/2008 Alcohol Use Standard Drinks/Week Comments Yes 0 (1 standard drink = 0.6 oz pure alcoho l) very little Sex Assigned at Date Recorded Not on file documented as of this encounter Last Filed Vital Signs Vital Sign Reading Time Taken Comments Blood Pressure 137/89 07/09/2013 10:08 AM LEAD BURNER HELPER Pulse 96 07/09/2013 10:08 AM LEAD BURNER HELPER Temperature - - Respiratory Rate - - Oxygen Saturation 100% 07/09/2013 10:08 AM LEAD BURNER HELPER Inhaled Oxygen Concentration - - Weight - - Height - - Body Mass Index - - documented in this encounter Discharge Instructions Discharge InstructionsCindy Littlejohn - 07/09/2013 10:11 AM CST Orthopedic Discharge Instructions: After Your Injection or Aspiration Patient Name: Annalisa Jacob Today's Date: July 09, 2013 The doctor who performed your Joint Injection was Matt Riley at [facility] in the General Radiology Department Care of needle site ?? If [...] do not have relief of symptoms. Follow-up: No follow-up needed Call your doctor or go to the Emergency Room if you have severe pain, fever or problems with bowel or bladder control. BURNER HELPER documented in this encounter Medications at Time [...] capsule taking 3000 mg total per day Lbqjmiqbwfa-Kqdpyowzc-Iw Take by mouth. 0 012 t C-Mn [...] 09/13/2013 tablet daily as needed for constipation metFORMIN (GLUCOPHAGE) Take 1 tablet (500 60 tablet 1 06/1407/25/2013 500 MG mg) by mouth 2 times tabletIndications: daily (with meals) Obesity (BMI 30-39.9), Other abnormal glucose phentermine (ADIPEX-P) Take 1 tablet (37.5 30 tablet 0 05/1707/25/2013 37.5 MG mg) by mouth every tabletIndications: morning (before Obesity (BMI 30-39.9) breakfast) polyethylene glycol Take 17 g by mouth 510 g 1 03/30/20 13 07/28/2013 (MIRALAX) daily powderIndications: Unspecified constipation documented as of this encounter Plan of Treatment Not on filedocumented as of this encounter Procedures Procedure Name Priority Date/Time Associated Comments Diagnosis XR SACROILIAC Routine 07/09/2013 10:37 Right hip pain Results for this THERAPEUTIC INJECTION AM LEAD BURNER HELPER proced ure are in LEFT the results section. documented in this encounter Results XR Sacroiliac Injection Left (07/09/2013 10:37 AM LEAD BURNER HELPER) Anatomical Region Laterality Modality Abdomen/Pelvis Left Computed Radiography Specimen (Source) Anatomical Location Collection Method / Collectio n Time Received Time / Laterality Volume Narrative 07/09/2013 4:13 PM LEAD BURNER HELPER XR SACROILIAC INJECTION LEFT ? 07/09/2013 10:37 AM ?? History: ??Left SI joint pain. PROCEDURE: The procedure, indications, r isks (including the risk of infection, bleeding, and reaction to con trast material and medications), and alternative therapies were discussed with the patient and informed consent was obtaine d before the procedure. ??The low back was prepped and draped in the u sual sterile fashion. Lidocaine 1% was used for local anesthes ia. ??Under fluoroscopic guidance a #22 gauge spinal needle was a dvanced into posterior inferior aspect of the left sacroiliac j oint. ??Subsequently a mixture of 1mL of Kenalog (40mg/mL) and 1 mL Mar barbara 0.5% were injected. ??The needle was removed. ??The patient tolera nely the procedure well and there were no immediate complications. ? ? The patient's pain levels (1-10 scale) a re as follows: ?? PRE INJECTION ?? 3 POST INJECTION 0 FINDINGS: Technically successful left SI joint injection MATT RILEY PA-C Procedure Note Matt Riley PA-C - 07/09/2013F ormatting of this note might be different from the original. XR SACROILIAC INJECTION LEFT 07/09/2013 10:37 AM History: Left SI joint pain. PROCEDURE: The procedure, indications, r isks (including the risk of infection, bleeding, and reaction to con trast material and medications), and alternative therapies were discussed with the patient and informed consent was obtaine d before the procedure. The low back was prepped and draped in the u sual sterile fashion. Lidocaine 1% was used for local anesthes ia. Under fluoroscopic guidance a #22 gauge spinal needle was a dvanced into posterior inferior aspect of the left sacroiliac j oint. Subsequently a mixture of 1mL of Kenalog (40mg/mL) and 1 mL Mar barbara 0.5% were injected. The needle was removed. The patient tolerate d the procedure well and there were no immediate complications. The patient's pain levels (1-10 scale) a re as follows: PRE INJECTION 3 POST INJECTION 0 FINDINGS: Technically successful left SI joint injection MATT RILEY PA-C Mejia Banks DO IM DIAGNOSTIC IMAGING ORDER MONTSERRAT documented in this encounter Visit Diagnoses Diagnosis Right hip pain Pain in joint, pelvic region and thigh documented in this encounter Administered Medications Inactive Administered Medications - up to 3 most recent administrations Medication Order MAR Action Action Date Dose Rate Site BUPIVICANE 0.5% Given by Other Clinician 07/09/2013 10:34 AM 1 mL 150 mg (30 mL), LEAD BURNER HELPER INTRA-ARTICULAR, ONCE, On Tue07/09/13 at 1000, For 1 dose Lidocaine 1 % injection 5 Given by Other Clinician 07/09/2013 10 :15 AM LEAD BURNER HELPER 3 mLs mL 5 mL, Intradermal, ONCE, On Tue07/09/13 at 1000, For 1 dose triamcinolone acetonide Given by Other 07/09/2013 10:15 AM LEAD BURNER HELPER 40 mg (KENALOG-40) injection 40 mg Clinician 40 mg, INTRA-ARTICULAR, ONCE, On Tue07/09/13 at 1000, For 1 dose documented in this encounter Care Teams Copy Preparer Relationship Specialty Start Date End Date Pam Walters MD PCP - General Family Practice 03/12/10 10/10/[address] [address] documented as of this encounter
--- OUTSIDE RECORDS SUMMARY | 2022-07-27 08:42 | XMS_ITS | Encounter Summary ---
:1960 Author Organization [facility] Address [address] [place] [id number] Care Team Providers Name Role Phone Pam Walters MD Primary Care Provider Reason for Visit Reason Comments Hip Pain US guided R hip injection. Encounter Details Date Type Department Care Team Description 06/04/2013 Office Visit [facility] & Mejia Banks, OA (o steoarthritis) of Orthopedic DO hip (Primary Dx) [facility] [address] [place], [place] [address] [facility] [phone] [address] [place] [address] Social History Tobacco Use Types Packs/Day Years Used Date Smoking Tobacco: Former Cigarettes 1 20 Smokeless Tobacco: Never Comments: 07/2008 Alcohol Use Standard Drinks/Week Comments Yes 0 (1 standard drink = 0.6 oz pure alcoho l) very little Sex Assigned at Date Recorded Not on file documented as of this encounter Last Filed Vital Signs Vital Sign Reading Time Taken Comments Blood Pressure 115/74 06/04/2013 8:06 AM CDT Pulse - - Temperature - - Respiratory Rate - - Oxygen Saturation - - Inhaled Oxygen Concentration - - Weight 122.5 kg (270 lb) 06/04/2013 8:06 AM CDT Height 180.3 cm (5' 11) 06/04/2013 8:06 AM CDT Body Mass Index 37.66 06/04/2013 8:06 AM CDT documented in this encounter Patient Instructions Patient InstructionsLaura Broussard - 06/04/2013 8:25 AM CDT We addressed the following today: 1. OA (osteoarthritis) of hip Steroid injecton of the right hip: intra-articular was performed today in clinic Icing for the next 1-2 days may be helpful for pain. Injection may take 10-14 days to see the full effect. Follow up 3-6 months (sooner if needed; call at any time with questions or concerns) documented in this encounter Progress Notes Mejia Banks - 06/04/2013 8:06 AM CDT Right hip intra-articular corticosteroid injection Diagnoses (preoperative and postoperative): Right hip osteoarthrosis Current Procedure (include preoperative): Sonographically guided right hip corticosteroid injection Current Indication (include preoperative): Alleviation of pain REFERRED BY: Dr. Zeb Logan REASON FOR REFERRAL: Dr. Logan has requested a right hip joint injection for modulation of pain. Sonographic guidance will be used to ensure accurate placement of the medication within the joint space and avoid nearby neurovascular structures. PATIENT EDUCATION: Ready to learn with no apparent learning barriers were identified. Learning preferences include listening. Explained diagnosis and treatment plan as well as treatment alternatives. Patient expressed understanding of the content. Following denial of allergy and review of potential side effects and complications including but notnecessarily limited to infection, bleeding, allergic reaction, post-injection flare, local tissue breakdown (including but not limited to potential for skin depigmentation and/or subcutaneous fat atroph y), systemic effects of corticosteroids, elevation of blood glucose, injury to soft tissue and/or nerves and seizure, patient indicated their understanding and agreed to proceed. PROCEDURE: Prior to the procedure, the right anterior hip joint was examined with a 4 MHz curvilinear transducer to visualize the joint space and determine the approach for the procedure. Procedure was carried out using sterile technique including Betadine, a sterile transducer cover, and a sterile transducer gel. A simple surgical tray was used. PROCEDURAL PAUSE: Procedural pause conducted to verify correct patient identity, procedure to be performed, and as applicable, correct side and site, correct patient position, availability of implants,special equipment, or special requirements. Patient position: Supine Transducer type: 4 MHz curvilinear Approach: Lateral to medial parallel to long axis of transducer Local Anesthesia: 25-gauge 2-inch needle was used to anesthetize the skin and subcutaneous tissue with 5 ml of 1% lidocaine. Aspirate: None Injectate: Sonographically guided 22-gauge 3.5 inch needle was directly visualized entering down into the right hip joint. After confirming needle tip position a solution containing 1 ml of 40 mg/ml Depo Medrol and 4 ml of 1% lidocaine was injected and seen filling the hip joint. AFTERCARE: Patient tolerated the procedure without complication. After a short observation period, patient was discharged under their own power and in excellent condition. Pain noted to be 1-2/10 before completion of the procedure with improvement to 0/10 after completion of the procedure. FOLLOW-UP: As needed with Dr. Logan. Mejia Banks DO [facility] documented in this encounter Plan of Treatment Not on filedocumented as of this encounter Procedures Procedure Name Priority Date/Time Associated Diagnosis Comme nts HC DRAIN/INJ MAJOR Routine 06/04/2013 8:35 AM CDT OA (osteoart hritis) of JOINT/BURSA W/O US hip documented in this encounter Visit Diagnoses Diagnosis OA (osteoarthritis) of hip - Primary documented in this encounter Care Teams Associate Property Manager Relationship Specialty Start Date End Date Pam Walters MD PCP - General Family Practice 03/12/10 10/10/[address] [address] documented as of this encounter
--- OUTSIDE RECORDS SUMMARY | 2022-07-27 08:42 | XMS_ITS | Encounter Summary ---
:1960 Author Organization [facility] Address [address] [place] [address]. [place] [address] Care Team Providers Name Role Phone Pam Walters MD Primary Care Provider Encounter Details Date Type Department Care Team Description 07/25/[address] [facility] Weight Shelia Cowart MD [facility] Ed [address], [address], [place] [address] [facility] [address] [place] [address] Social History Tobacco Use Types [...] - Inhaled Oxygen Concentration - - Weight 119.3 kg (263 lb) 07/25/2013 11:23 AM SPORTS NUTRITIONIST Height 180 cm (5' 10.87) 07/25/2013 11:23 AM SPORTS NUTRITIONIST Body Mass Index 36.82 07/25/2013 11:23 AM SPORTS NUTRITIONIST documented in this encounter Progress Notes Stormy Edwards - 07/25/2013 11:23 AM CST MEDICAL WEIGHT LOSS FOLLOW UP DIAGNOSIS: Obesity- class II NUTRITION HISTORY: Breakfast: single packet oatmeal with raisins Lunch: nepali yogurt with boca burger (, black samson, or tomato basil flavor), grapes Dinner: leftover chili with ground turkey or lettuce with hard boiled eggs and light dressing or vegetarian corn dog (150 calories, 8 gm protein, 2.5 gm fat) Snacks: 100 juju nepali yogurt; skinny cow ice cream sandwich or low calorie fudgsicle Beverage Choices: water and decaf coffee Exercise: swimming daily with exception of Tuesday, 45 minutes; 60-75 minutes weekends Other: pt only veered from her usual intake (above) 2 days with the holidays/going to in-laws home this month; pt is getting 3 servings of fruit and 2 servings vegetables daily; patient eating about 1400 calories per day ANTHOPOMETRICS: Initial Weight: 310 pounds Previous Weight: 266.7 pounds Current Weight: 263 pounds Weight Change: decrease 3.7 pounds BMI: 36.9 kg/m2 MEDICATIONS: Change from metformin, phentermine to Qsymia today EVALUATION/PROGRESS TOWARDS GOALS: Previous Goals: Practice self control at work having the mindset of I make the rules- met Keep journal on days outside of usual food routine- met Journal something positive/progress made each night- not met Previous Nutrition Diagnosis: Obese class II related to excess energy intake as evidence by BMI of 37.42 kg/m2- no change, modified below Current Nutrition Diagnosis: Obese class II related to excess energy intake as evidence by BMI of 36.9 kg/m2 INTERVENTION: Nutrition Prescription: Recommend modified nutrient intake by decreasing energy intake Implementation: Meals and Snacks: 3 meals, 1 snack Nutrition Education (Content): Discussed previous goals and determined new goals Encourage physical activity Supported patient in attempted weight loss and behavior changes Congratulated patient on successful weight loss Patient able to demonstrate understanding by describing the importance of allowing herself controlled indulgence/straying from usual intake when planned Anticipate good compliance Goals: Continue allowing self controlled indulgences when planned in advance Continue exercising (swimming) 6 days per week Work on positive encouragement with self and spouse regarding weight loss progress and healthy eating Follow Up/Monitoring: Other - patient to follow up in 6 weeks Time Spent With Patient: [address], LD TS NUTRITIONIST documented in this encounter Plan of Treatment Not on filedocumented as of this encounter Visit Diagnoses Not on filedocumented in this encounter Care Teams Motor Coach Operator Relationship Specialty Start Date End Date Pam Walters MD PCP - General Family Practice 03/12/10 10/10/[address] [address] documented as of this encounter
--- OUTSIDE RECORDS SUMMARY | 2022-07-27 08:42 | XMS_ITS | Encounter Summary ---
:1960 Author Organization [facility] Address [address] [place] [address]. [place] [address] Care Team Providers Name Role Phone Pam Walters MD Primary Care Provider Reason for Visit Reason Onset Date Comments Patient Request 08/10/2013 Encounter Details Date Type Department Care Team Description 08/10/2013 Telephone [facility] Jason Logan, Patient Request Orthopedic Care [facility] [address] [facility] [address] [facility] [address] [place] [phone] (Wo rk) Social History Tobacco Use Types Packs/Day Years Used Date Smoking Tobacco: Former Cigarettes 1 20 Smokeless Tobacco: Never Comments: 07/2008 Alcohol Use Standard Drinks/Week Comments Yes 0 (1 standard drink = 0.6 oz pure alcoho l) very little Sex Assigned at Date Recorded Not on file documented as of this encounter Miscellaneous Notes Telephone Encounter - Yisel Burgess - 08/10/2013 3:03 PM CST Order was signed per Dr. Charlton. Patient was informed. No physician action needed. Yisel Burgses ATC [facility] [employer] Telephone Encounter - Archie Charlton MD - 08/10/2013 2:50 PM CST OK for the injection [facility] Telephone Encounter - Yisel Burgess - 08/10/2013 12:31 PM CST Patient called and left VM message stating that she would like to get another left hip injection by the end of the year, if possible. She has had two intra- articular injections on the left hip. One US guided injection by Dr. Roth on 02/13/2013 and one fluoro-guided on 03/22/2013. She felt that the fluoro-guided gave her better relief so, would prefer that type. She was instructed that Dr. Logan is out of the office until 08/22/2013 but, will pass the message on to Dr. Charlton, his colleague, who will return to the office on 08/13/2013. She understood the plan and will await a call back. Order has been placed for fluoro-guided injection. Please sign if appropriate and I will inform the patient. Yisel Burgess, SARAHI [facility] [employer] documented in this encounter Plan of Treatment Not on filedocumented as of this encounter Visit Diagnoses Diagnosis Osteoarthritis of left hip - Primary Osteoarthrosis, unspecified whether gene ralized or localized, pelvic region and thigh documented in this encounter Care Teams Public Health Training Assistant Relationship Specialty Start Date End Date Pam Walters MD PCP - General Family Practice 03/12/10 10/10/[address] [address] documented as of this encounter
--- OUTSIDE RECORDS SUMMARY | 2022-07-27 08:42 | XMS_ITS | Encounter Summary ---
:1960 Author Organization [facility] Address [address] [place] [address] Care Team Providers Name Role Phone Pam Walters MD Primary Care Provider Reason for Visit Reason Comments Weight Problem F/U Phentermine Encounter Details Date Type Department Care Team Description 06/14/2013 Office Visit [facility] Shelia Cowart Obesity (B MD 30-39.9) (Primary Dx); Weight Management MD [facility] Other [facility] [address] [place] [address] Social History Tobacco Use Types [...] Reading Time Taken Comments Blood Pressure 129/83 06/14/2013 9:40 AM CDT Pulse 90 06/14/2013 9:40 AM CDT Temperature 36.7 ??C (98 ??F) 06/14/2013 9:40 AM CDT Respiratory Rate 18 06/14/2013 9:40 AM CDT Oxygen Saturation 100% 06/14/2013 9:40 AM CDT Inhaled Oxygen Concentration - - Weight 120.7 kg (266 lb) 06/14/2013 9:40 AM CDT Height 180.3 cm (5' 11) 06/14/2013 9:40 AM CDT Body Mass Index 37.1 06/14/2013 9:40 AM CDT documented in this encounter Progress Notes Shelia Cowart MD - 06/14/2013 9:47 AM CDT Medical Weight Loss - Medication Check CHIEF COMPLAINT: Chief Complaint Patient presents with ??? Weight Problem F/U Phentermine HISTORY OF PRESENT ILLNESS (HPI): Patient returns today for medical weight loss follow-up visit. Patient was last seen by me on 05/03/2013 and has lost 5 pounds. She continues on Phentermine. She denies adverse side effects including insomnia or anxiety. Constipation is stable-uses polyethylene glycol once per week. She desires to continue Phentermine. She continues dietary efforts. Exercise is 60 minutes 3 times a week and 45 minutes 4 times a week; swimming. Less intensity of work-outs due to recent right hip pain and left knee pain. Just had right hip injection with some relief. MEDICATIONS: Current Outpatient Prescriptions Medication Status Sig ??? phentermine (ADIPEX-P) 37.5 MG tablet Active Take 1 tablet (37.5 mg) by mouth every morning (before breakfast) ??? metFORMIN (GLUCOPHAGE) 500 MG tablet Active Take 1 tablet (500 mg) by mouth 2 times daily (with meals) ??? docusate sodium 100 MG tablet Active Take 100 mg by mouth daily as needed for constipation ??? polyethylene glycol (MIRALAX) powder Active Take 17 g by mouth daily ??? Minoxidil (ROGAINE EX) Active Externally apply topically. ??? Mpnqbwaeklg-Nnjzyopbz-Lgx C-Mn (GLUCOSAMINE 1500 COMPLEX) CAPS Active Take [...] swelling ??? Penicillins PHYSICAL EXAMINATION: VITALS: BP 129/83 Pulse 90 Temp 98 ??F (36.7 ??C) (Oral) Resp 18 Ht 5' 11 (1.803 m) Wt 266 lb (120.657 kg) BMI 37.10 kg/m2 SpO2 100% ? No GENERAL: Patient is a 52 year old year old female in no acute distress. Patient is alert and orientated x 4, pleasant and cooperative with exam. CARDIOVASCULAR: Regular rate and rhythm without murmurs, rubs, or gallops. RESPIRATORY: Lungs are clear to auscultation bilaterally, respiratory effort is normal. ASSESSMENT/PLAN: 1. Obesity (BMI 30-39.9) 2. Other abnormal glucose PLAN: Continue phentermine . Discussed starting metformin for pre-diabetes which has been discussed with patient in previous visit. Risks versus benefits were gain discussed including risk of diarrhea. After hearing the risks versus benefits of metformin patient is in agreement to start metformin. Lytes and creatinine in 6 weeks. Prescription was given for Phentermine and Metformin. Patient is to return to the clinic in 4-6 Weeks. Patient is to call the clinic if she experiences any adverse reactions. Follow-up with bariatric dietitian. Follow-up with bariatric physical therapist. This was a 15 minute visit with greater than 50% spent on counseling regarding risks versus benefitsof metformin and discussing plan of care. ORDERS PLACED IN TODAY'S VISIT: Orders Placed This Encounter Procedures ??? FALL RISK ASSESSMENT documented in this encounter Nursing Notes 06/14/2013 9:40 AM CDT >> SUNDAR SRIVASTAVA Jes Jun 14, 2013 9:49 AM Patient presents with: Weight Problem - F/U Phentermine Initial BP 129/83 Pulse 90 Temp 98 ??F (36.7 ??C) (Oral) Resp 18 Ht 5' 11 (1.803 m) Wt 266 lb (120.657 kg) BMI 37.10 kg/m2 SpO2 100% ? No Estimated Body mass index is 37.10 kg/(m^2) as calculated from the following: Height as of this encounter: 5' 11(1.803 m). Weight as of this encounter: 266 lb(120.657 kg). BP completed using cuff size: large Sundar Srivastava MA documented in this encounter Plan of Treatment Not on filedocumented as of this encounter Visit Diagnoses Diagnosis Obesity (BMI 30-39.9) - Primary Obesity, unspecified Other abnormal glucose documented in this encounter Care Teams Scrap Iron Cutter Relationship Specialty Start Date End Date Pam Walters MD PCP - General Family Practice 03/12/10 10/10/[address] [address] documented as of this encounter
--- OUTSIDE RECORDS SUMMARY | 2022-07-27 08:42 | XMS_ITS | Encounter Summary ---
:1960 Author Organization [facility] Address [address] [place] [address]. [place] [address] Care Team Providers Name Role Phone Pam Walters MD Primary Care Provider Reason for Visit Reason Onset Date Comments Refill Request 06/04/2013 Encounter Details Date Type Department Care Team Description 06/04/2013 Refill M [facility] Weight Shelia Cowart MD Refill Request Management Clinic Ed [facility]atherine [address] [facility] [address] [place] [address] Social History Tobacco Use Types Packs/Day Years Used Date Smoking Tobacco: Former Cigarettes 1 20 Smokeless Tobacco: Never Comments: 07/2008 Alcohol Use Standard Drinks/Week Comments Yes 0 (1 standard drink = 0.6 oz pure alcoho l) very little Sex Assigned at Date Recorded Not on file documented as of this encounter Miscellaneous Notes Telephone Encounter - Sundar Srivastava - 06/04/2013 12:58 PM CDT Called Rx in to [facility] in [place]. LM for patient letting her know Rx has been called in. Telephone Encounter - Sundar Srivastava - 06/04/2013 12:44 PM CDT Pt requesting Rx for Phentermine 37.5mg #30 Last fill-05/03/13 Last visit-05/03/13 Please advise documented in this encounter Plan of Treatment Not on filedocumented as of this encounter Visit Diagnoses Diagnosis Obesity, Class III, BMI 40-49.9 (morbid obesity) (H) - Primary Morbid obesity documented in this encounter Care Teams Solar Systems Designer Relationship Specialty Start Date End Date Pam Walters MD PCP - General Family Practice 03/12/10 10/10/[address] [address] documented as of this encounter
--- OUTSIDE RECORDS SUMMARY | 2022-07-27 08:42 | XMS_ITS | Encounter Summary ---
:1960 Author Organization [place] Address [address] [place] [address] Care Team Providers Name Role Phone Pam Walters MD Primary Care Provider Reason for Visit Reason Comments Hip right NEW, pain Encounter Details Date Type Department Care Team Description 06/01/2013 Office Visit Jason Block Hip osteoarthritis Orthopedic Care Jw Wooten MD (Primary Dx) [facility] ORTHOPEDICS [address] [facility] [address] [facility] [address] [place] [phone] (Wo rk) Social History Tobacco Use Types [...] Sign Reading Time Taken Comments Blood Pressure 110/80 06/01/2013 1:43 PM CDT Pulse - - Temperature - - Respiratory Rate - - Oxygen Saturation - - Inhaled Oxygen Concentration - - Weight 122.5 kg (270 lb) 06/01/2013 1:43 PM CDT Height 180.3 cm (5' 11) 06/01/2013 1:43 PM CDT Body Mass Index 37.66 06/01/2013 1:43 PM CDT documented in this encounter Patient Instructions Patient InstructionsYisel Burgess 06/01/2013 2:15 PM CDT Ultrasound-guided injection with Dr. Banks at [facility]. Follow-up as needed or as discussed with your provider. documented in this encounter Progress Notes Jason Logan MD - 06/01/2013 1:45 PM CDT HISTORY OF PRESENT ILLNESS: Annalisa Jacob is a 52 year old female who is seen as self referral for right hip pain which developed 2 months ago with gradual onset and unknown mechanism. She has had left hip pain from osteoarthritis, treated by intra-articular corticosteroid injection which gave her good relief. Present symptoms: pain and catching sensation in anterior hip Treatments tried to this point: OTC Medication: Ibuprofen (Advil) Orthopedic PMH: none Past Medical History Diagnosis Date ??? Obesity, unspecified ??? Tobacco use disorder quit in 07/2008 ??? Absence of menstruation surgical menopause ??? Degeneration of intervertebral disc, site unspecified 03/20 MRI, mild DDD, mild bulging L3-4 ??? BCC (basal cell carcinoma) on rt thigh, h/o multiple Past Surgical History Procedure Date ??? C nonspecific procedure s/p x 1 ??? C nonspecific procedure 1997 L ovarian removal secondary to benign cyst ??? C nonspecific procedure 1997 s/p tubal ligation ??? Hysterectomy s/p hysterectomy & R ovary removed-fibroids ??? C nonspecific procedure 08/15 s/p cholecystectomy ??? C total knee arthroplasty 2010 right ??? Arthroscopy knee 2013 right Family History Problem Relation Age of Onset ??? Cancer Maternal Grandfather at 50's-60's YOA, stomach CA ??? Neurological Maternal Grandmother at 80's, had alzheimer's ??? C.A.D. Paternal Grandmother late 30's of DC ??? Cancer Paternal Grandfather 60's of lung CA,smoker ??? Family History Negative Mother ??? Respiratory Father sarcoidosis ??? Obesity Sister 1-HTN ??? Obesity Brother 1 ??? Colon CA No family hx of ??? Breast CA No family hx of History Social History ??? Marital Status: Spouse Name: Matteo Number of Children: 1 ??? 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 Smoking status: Former Smoker -- 1.0 packs/day for 20 years Types: Cigarettes ??? Smokeless tobacco: Never Used Comment: 07/2008 ??? Alcohol Use: Yes very little ??? Drug Use: No ??? Sexually Active: Yes -- Male partner(s) Control/ Protection: Surgical complete hysterectomy Other Topics Concern ??? Caffeine Concern Yes 1 lg coffee, occas soda ??? Special Diet No dietary calcium daily, low F/V ??? Exercise Yes not regular ??? Seat Belt Yes ??? Self-Exams Yes ??? Parent/Sibling W/ Cabg, Mi Or Angioplasty Before 65f 55m? 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 docusate sodium 100 MG tablet Take 100 mg by mouth daily as needed for constipation ??? phentermine (ADIPEX-P) 37.5 MG tablet Take 1 tablet (37.5 mg) by mouth every morning (before breakfast) ??? polyethylene glycol (MIRALAX) powder Take 17 g by mouth daily ??? Minoxidil (ROGAINE EX) Externally apply topically. ??? Cwckbxfcuts-Tedrqyqug-Qng C-Mn (GLUCOSAMINE 1500 COMPLEX) CAPS Take by [...] PO TABS ONE TABLET DAily WITH MEALS Allergies Allergen Reactions ??? Latex Rash, redness, swelling ??? Penicillins REVIEW OF SYSTEMS: CONSTITUTIONAL: NEGATIVE for fever, chills, change in weight INTEGUMENTARY/SKIN: NEGATIVE for worrisome rashes, moles or lesions EYES: NEGATIVE for vision changes or irritation ENT/MOUTH: NEGATIVE for ear, mouth and throat problems RESP: NEGATIVE for significant cough or SOB BREAST: NEGATIVE for masses, tenderness or discharge CV: NEGATIVE for chest pain, palpitations or peripheral edema GI: NEGATIVE for nausea, abdominal pain, heartburn, or change in bowel habits : Negative MUSCULOSKELETAL: See HPI above NEURO: NEGATIVE for weakness, dizziness or paresthesias ENDOCRINE: NEGATIVE for temperature intolerance, skin/hair changes HEME/ALLERGY/IMMUNE: NEGATIVE for bleeding problems PSYCHIATRIC: NEGATIVE for changes in mood or affect PHYSICAL EXAM: BP 110/80 Ht 5' 11 (1.803 m) Wt 270 lb (122.471 kg) BMI 37.66 kg/m2 Body mass index is 37.66 kg/(m^2). GENERAL APPEARANCE: healthy, alert and no distress SKIN: no suspicious lesions or rashes NEURO: Normal strength and tone, mentation intact and speech normal VASCULAR: Good pulses, and capillary refill LYMPH: no lymphadenopathy PSYCH: mentation appears normal and affect normal/bright MSK: A&OX3, NAD Neck supple, no lymphadenopathy The patient ambulates without an antalgic gait. [...] 90 degrees, internal and external rotation is 20/50 respectively, with mild pain at extremes. The calves and thighs are symmetric, without atrophy and non-tender to palpation. Ирина's sign is negative, bilaterally. CMS is intact to the toes. ASSESSMENT / PLAN: Osteoarthritis, bilateral hips. I offered her corticosteroid injection into her right hip this time to see if this gives her is good of relief as the injections in the left hip in the past. She agreed. We'll send her to Dr. Banks for an ultrasound-guided corticosteroid injection. Imaging Interpretation: None today Zeb Logan MD Department of Orthopedic Surgery documented in this encounter Nursing Notes 06/01/2013 1:40 PM CDT >> Yisel Aditya Schneider Jun 01, 2013 1:47 PM Patient presents with: Hip right - NEW, pain Initial BP 110/80 Ht 5' 11 (1.803 m) Wt 270 lb (122.471 kg) BMI 37.66 kg/m2 Estimated Body mass index is 37.66 kg/(m^2) as calculated from the following: Height as of this encounter: 5' 11(1.803 m). Weight as of this encounter: 270 lb(122.471 kg). BP completed using cuff size: large Yisel Burgess, ATC documented in this encounter Plan of Treatment Not on filedocumented as of this encounter Visit Diagnoses Diagnosis Hip osteoarthritis - Primary Osteoarthrosis, unspecified whether gene ralized or localized, pelvic region and thigh documented in this encounter Care Teams Drive Thru Order Taker Relationship Specialty Start Date End Date Pam Walters MD PCP - General Family Practice 03/12/10 10/10/[address] [address] documented as of this encounter
--- OUTSIDE RECORDS SUMMARY | 2022-07-27 08:43 | XMS_ITS | Encounter Summary ---
:1960 Author Organization [place] Address [address] [place] [address]. [place] [address] Care Team Providers Name Role Phone Pam Walters MD Primary Care Provider Reason for Visit Reason Comments Weight Problem Encounter Details Date Type Department Care Team Description 01/04/2013 Office Visit [facility] Weight Doctor, None, [facility] Ed catherine 1, Sh Wl Diet, RD [address] [facility] [address] [place] [address] Social History Tobacco Use Types [...] - Inhaled Oxygen Concentration - - Weight 135.2 kg (298 lb) 01/04/2013 8:54 AM CDT Height 180.3 cm (5' 11) 01/04/2013 8:54 AM CDT Body Mass Index 41.56 01/04/2013 8:54 AM CDT documented in this encounter Progress Notes Oc Koo, RD, LD - 01/04/2013 9:43 AM CDT MEDICAL WEIGHT LOSS FOLLOW UP DIAGNOSIS: Class III Obesity NUTRITION HISTORY: Breakfast: Jiffy oatmeal muffin with raisins or oatmeal with raisins Lunch: Light minestone soup or steamed broccoli, carrots and peppers, Citizen Of [place] yogurt, 2 cups grapes Dinner: 6 table spoons egg whites, what bread, ice cream sandwich Snacks: String cheese Beverage Choices: 100 oz water, black coffee Exercise: swims 7 days/week. 60 min 5 X/week, 90 min 2 X/dxwn=133 minutes/week Other: knee procedure scheduled in 2 weeks ANTHOPOMETRICS: Initial Weight: 310 pounds Previous Weight: 312 pounds Current Weight: 298 pounds Weight Change: decrease 14 pounds BMI: 41.65 kg/m2 MEDICATIONS: Phentermine EVALUATION/PROGRESS TOWARDS GOALS: Previous Goals: Include lean protein with each meal (not met) Change to 100 calorie pop corn packs (met, not snacking as much since starting phentermine) Aim for 1800 kcal/day (since starting phentermine, eating 4313-1917 kcal/day based on iCharts results) Previous Nutrition Diagnosis: Obese class III related to excess energy intake as evidence by BMI of 43.61 kg/m2 Current Nutrition Diagnosis: No change INTERVENTION: Nutrition Prescription: Recommend modified nutrient intake by decreasing energy intake Implementation: Meals and Snacks: 3 meals, 1 snack/day Nutrition Education (Content): Discussed previous goals and determined new goals Encourage physical activity Supported patient in attempted weight loss and behavior changes Congratulated patient on successful weight loss Patient able to verbalize need to loose weight slower so she will keep it off Anticipate good compliance Goals: Eat 3-4 servings of fruit and vegetabels/day Include lean protein at breakfast and lunch (suggestions made) Keep calorie intake at at least 0287-7722 kcal/day (continue journaling on iCharts) Follow Up/Monitoring: Other - patient to follow up in 4 weeks Time Spent With Patient: 30 Minutes documented in this encounter Plan of Treatment Not on filedocumented as of this encounter Visit Diagnoses Not on filedocumented in this encounter Care Teams Business Services Coordinator Relationship Specialty Start Date End Date Pam Walters MD PCP - General Family Practice 03/12/10 10/10/13 [place] [address] documented as of this encounter
--- OUTSIDE RECORDS SUMMARY | 2022-07-27 08:43 | XMS_ITS | Encounter Summary ---
:1960 Author Organization [place] Address [address] [place] [address] Care Team Providers Name Role Phone Pam Walters MD Primary Care Provider Taty Jacob Primary Care Provider Encounter Details Date Type Department Care Team Description 01/11/2013 Historic Results [facility] Heart Unknown, [facility] ider Clinic [address] [place] [address] Social History Tobacco Use Types Packs/Day Years [...] Name Priority Date/Time Associated Diagnosis Comme nts ECHO CARDIAC - HIM SCAN 01/11/2013 12:00 AM CDT - ARCHIVE documented in this encounter Results ECHO CARDIAC - HIM SCAN - ARCHIVE (01/11/2013 12:00 AM CDT) Anatomical Region Laterality Modality Echocardiography Specimen (Source) Anatomical Location Collection Method / Collectio n Time Received Time / Laterality Volume 01/11/2013 Narrative This result has an attachment that is no t available. Provider Scan CV ECHO ORDERABLES documented in this encounter Visit Diagnoses Not on filedocumented in this encounter Care Teams Interface Control Officer Relationship Specialty Start Date End Date Pam Walters MD PCP - General Family Practice 03/12/10 10/10/[address] [address] Taty Jacob PCP - General Nurse Practitioner 10/11/13 [facility] [address], [place] [address] documented as of this encounter
--- OUTSIDE RECORDS SUMMARY | 2022-07-27 08:43 | XMS_ITS | Encounter Summary ---
:1960 Author Organization [place] Address [address] [place] [address] Care Team Providers Name Role Phone Pam Walters MD Primary Care Provider Reason for Visit Reason Onset Date Comments Pt. Information/instruction 03/12/2013 Encounter Details Date Type Department Care Team Description 03/12/2013 Telephone [place] [facility] And Jason Logan Pt. Orthopedic Care Jw Wooten MD Information/instructi [facility] ORTHOPEDICS on [address] [facility] [address] [facility] [address] [place] [address] [place], [place] [phone] (Wo rk) Social History Tobacco Use Types Packs/Day Years Used Date Smoking Tobacco: Former Cigarettes 1 20 Smokeless Tobacco: Never Comments: 07/2008 Alcohol Use Standard Drinks/Week Comments Yes 0 (1 standard drink = 0.6 oz pure alcoho l) very little Sex Assigned at Date Recorded Not on file documented as of this encounter Miscellaneous Notes Telephone Encounter - Arpita Pleitez RN - 03/12/2013 11:42 AM CDT Pt. Had U/S guided injection completed 02/13/13. Pt. States she received minimal relief from injectionand wonders what the next steps should be. Call returned to pt. Informing her per office visit note,if pain not better she may be a candidate for hip arthroscopy. Scheduled pt. Appt. For 03/15/13 to discuss options with Dr. Logan. Arpita Pleitez, RN documented in this encounter Plan of Treatment Not on filedocumented as of this encounter Visit Diagnoses Not on filedocumented in this encounter Care Teams Supportive Employment Case Manager Relationship Specialty Start Date End Date Pam Walters MD PCP - General Family Practice 03/12/10 10/10/[address] [address] documented as of this encounter
--- OUTSIDE RECORDS SUMMARY | 2022-07-27 08:43 | XMS_ITS | Encounter Summary ---
:1960 Author Organization [place] Address [address] [place] [address] Care Team Providers Name Role Phone Pam Walters MD Primary Care Provider Reason for Visit Reason Comments Hip left f/u, pain Encounter Details Date Type Department Care Team Description 03/15/2013 Office Visit [place] [facility] Logan Left hip pain Orthopedic Care Jw Wooten MD (Primary Dx) [facility] ORTHOPEDICS [address] [facility] [address] [facility] [address] [place], [place] [id number] [place] [address] [phone] (Wo rk) Social History Tobacco Use [...] Sign Reading Time Taken Comments Blood Pressure 125/71 03/15/2013 1:24 PM CDT Pulse - - Temperature - - Respiratory Rate - - Oxygen Saturation - - Inhaled Oxygen Concentration - - Weight 127.5 kg (281 lb) 03/15/2013 1:24 PM CDT Height 180.3 cm (5' 11) 03/15/2013 1:24 PM CDT Body Mass Index 39.19 03/15/2013 1:24 PM CDT documented in this encounter Patient Instructions Patient InstructionsMorelia Burgessily - 03/15/2013 1:52 PM CDT Please call [facility] [phone] to schedule your appointment if you have not heard from them in two business days Arrive 15 minutes early. If you need to cancel or change the appointment please call [facility] [phone] [facility] [address], [place] [address] [phone] help desk technician: [phone] to the welcome desk in the lobby. Notes: *Follow up as needed or as discussed with your care provider *See Chart Note for specific details documented in this encounter Progress Notes Jason Logan MD - 03/15/2013 1:24 PM CDT HISTORY OF PRESENT ILLNESS: Annalisa Jacob is a 52 year old female who is seen in follow up for left hip osteoarthritis. She states that intra-articular injection done on 02/13/2013 helped somewhat but, still has catching sensation. Present symptoms: catching sensation, anterior hip pain with walking for long periods Treatments tried to this point: SI joint injections, animal care supervisor, intra- articular hip injection on 02/13/2013 PHYSICAL EXAM: BP 125/71 Ht 5' 11 (1.803 m) Wt 281 lb (127.461 kg) BMI 39.19 kg/m2 Body mass index is 39.19 kg/(m^2). GENERAL APPEARANCE: healthy, alert and no distress SKIN: no suspicious lesions or rashes NEURO: Normal strength and tone, mentation intact and speech normal VASCULAR: good pulses, and cappillary refill LYMPH: no lymphadenopathy PSYCH: mentation appears normal and affect normal/bright MSK: The patient ambulates without an antalgic gait. The patient is able to get on and off the exam tablewithout difficulty. IMAGING INTERPRETATION: None today ASSESSMENT / PLAN: Left hip pain, persistent but somewhat better after the intra-articular injectionin early February. I had a long discussion with Erika today regarding the pathology and treatment options. She has osteoarthritis of the hip and some degenerative labrum fraying. We are going to try one more corticosteroid injection in the joint and then discuss further invasive modalities, whether they be hip arthroscopy or total hip arthroplasty if this injection doesn't give her any more relief. Return to clinic when necessary Zeb Logan MD Dept. Orthopedic Surgery [facility] documented in this encounter Nursing Notes 03/15/2013 1:20 PM CDT >> Yisel Burgess Jes Mar 15, 2013 1:29 PM Patient presents with: Hip left - f/u, pain Initial BP 125/71 Ht 5' 11 (1.803 m) Wt 281 lb (127.461 kg) BMI 39.19 kg/m2 Estimated Body mass index is 39.19 kg/(m^2) as calculated from the following: Height as of this encounter: 5' 11(1.803 m). Weight as of this encounter: 281 lb(127.461 kg). BP completed using cuff size: NA (Not Taken) Yisel Burgess ATC documented in this encounter Plan of Treatment Not on filedocumented as of this encounter Visit Diagnoses Diagnosis Left hip pain - Primary Pain in joint, pelvic region and thigh documented in this encounter Care Teams Lead Slot Technician Relationship Specialty Start Date End Date Pam Walters MD PCP - General Family Practice 03/12/10 10/10/[address] [address] documented as of this encounter
--- OUTSIDE RECORDS SUMMARY | 2022-07-27 08:43 | XMS_ITS | Encounter Summary ---
:1960 Author Organization [place] Address [address] [place] [address] Care Team Providers Name Role Phone Pam Walters MD Primary Care Provider Reason for Visit Reason Comments Weight Problem Encounter Details Date Type Department Care Team Description 01/30/2013 Office Visit [facility] Shelia Cowart Morbid baldemar ye (H) Weight Management MD [place] (Primary D x) Clinic [address] [place] [address] Social History Tobacco Use Types [...] Sign Reading Time Taken Comments Blood Pressure 118/82 01/30/2013 1:20 PM (from Extend ed CDT Vitals) Pulse 92 01/30/2013 11:45 AM CDT Temperature - - Respiratory Rate 18 01/30/2013 11:45 AM CDT Oxygen Saturation - - Inhaled Oxygen - - Concentration Weight 135.6 kg (299 lb) 01/30/2013 11:45 AM CDT Height 180.3 cm (5' 11) 01/30/2013 11:45 AM CDT Body Mass Index 41.7 01/30/2013 11:45 AM CDT documented in this encounter Progress Notes Shelia Cowart MD - 01/30/2013 1:20 PM CDT Medical Weight Loss - Follow-up Visit CHIEF COMPLAINT: Chief Complaint Patient presents with ??? Weight Problem HISTORY OF PRESENT ILLNESS (HPI): Patient returns today for medical weight loss follow-up visit. Patient was last seen by me on 12/15/2012 and has lost 12 pounds since that time. She continues on phentermine 37.5 mg. Started this on 12-16-12. She did stop this medication for 3 weeks over the time of her recent knee surgery. Just restarted phentermine 2 days ago and took 1/2 tab po per day for last 2 days. Notes that she may need surgery to her hip for possible labrial tear. Advised to contact me for directions again on how to taper and stop medication kimberlee- operatively. She denies adverse side effects, including constipation, headache, insomnia and palpitations She desires to continue phentermine. Please with weight loss so far. She continues dietary efforts. Patient is seeing dietitian Next week Patient is seeing PT-next week Also reports that had pre-op EKG that was read as abnormal. Echo scheduled per primary and told thiswas negative. I personally reviewed these two tests today and confirm that echo was normal. MEDICATIONS: Current Outpatient Prescriptions Medication Sig ??? phentermine (ADIPEX-P) 37.5 MG tablet Take 1 tablet by mouth every morning (before breakfast). ??? Minoxidil (ROGAINE EX) Externally apply topically. ??? Gqulzsnzhet-Fzwgxpiho-Sip C-Mn (GLUCOSAMINE 1500 COMPLEX) CAPS Take by mouth. ??? cholecalciferol (VITAMIN D) 1000 UNIT tablet Take 1 tablet by mouth daily. ??? fish oil-omega-3 fatty acids (FISH OIL) 1000 MG capsule Take 3 capsules by mouth daily. Pt is taking 3000 mg total per day ??? cetirizine (ZYRTEC) 10 MG tablet Take 1 tablet by mouth every evening. ??? ibuprofen (ADVIL,MOTRIN) 800 MG tablet Take 1 tablet by mouth every 8 hours as needed for pain. ??? MULTI-VITAMIN OR TABS ONE TABLET DAILY ??? CALCIUM + D 600-200 MG-UNIT PO TABS ONE TABLET DAily WITH MEALS ALLERGIES: Allergies Allergen Reactions ??? Latex Rash, redness, swelling ??? Penicillins PHYSICAL EXAMINATION: VITALS: BP 118/78 Pulse 92 Resp 18 Ht 5' 11 (1.803 m) Wt 299 lb (135.626 kg) BMI 41.70 kg/m2 GENERAL: Patient is a 52 year old year old female in no acute distress. Patient is alert and orientated x 4, pleasant and cooperative with exam. CARDIOVASCULAR: Regular rate and rhythm without murmurs, rubs, or gallops. RESPIRATORY: Lungs are clear to auscultation bilaterally, respiratory effort is normal. ASSESSMENT/PLAN: 1. Morbid obesity PLAN: Continue phentermine 37.5 mg per day in am. Prescription was given for phentermine. Patient is to return to the clinic in 4 Weeks. Patient is to call the clinic if she experiences any adverse reactions. Patient to call if hip surgery gets scheduled for phentermine taper. Follow-up with bariatric dietitian. Follow-up with bariatric physical therapist. ORDERS PLACED IN TODAY'S VISIT: No orders of the defined types were placed in this encounter. documented in this encounter Nursing Notes 01/30/2013 12:10 PM CDT >> Terrell Sauceda Jan 30, 2013 11:50 AM Patient here for monthly follow up, would like to continue medication Phentermine 37.5 mg 1 daily. Terrell Hart documented in this encounter Plan of Treatment Not on filedocumented as of this encounter Visit Diagnoses Diagnosis Morbid obesity (H) - Primary Morbid obesity documented in this encounter Care Teams Histotechnologist Supervisor Relationship Specialty Start Date End Date Pam Walters MD PCP - General Family Practice 03/12/10 10/10/[address] [address] documented as of this encounter
--- OUTSIDE RECORDS SUMMARY | 2022-07-27 08:43 | XMS_ITS | Encounter Summary ---
:1960 Author Organization [facility] Address [facility] [place] [address] Care Team Providers Name Role Phone Pam Walters MD Primary Care Provider Reason for Visit Reason Onset Date Comments Medication Reaction 03/13/2013 Encounter Details Date Type Department Care Team Description 03/13/2013 Telephone [facility] Weight Shelia Cowart gh, Medication Reaction Management [facility] Ed catherine [address] [place] [address] Social History Tobacco Use Types Packs/Day Years Used Date Smoking Tobacco: Former Cigarettes 1 20 Smokeless Tobacco: Never Comments: 07/2008 Alcohol Use Standard Drinks/Week Comments Yes 0 (1 standard drink = 0.6 oz pure alcoho l) very little Sex Assigned at Date Recorded Not on file documented as of this encounter Miscellaneous Notes Telephone Encounter - Obed Springer - 03/15/2013 10:29 AM CDT Pt came into the clinic today. Offered appt for pt to see RM if there is time. Per pt, because she has a closing to go to, she can't stay. Advised pt to f/u with pcp to make sure everything is ok and rash. Pt agreed to plan and will call to schedule appt with pcp. Telephone Encounter - Obed Springer - 03/14/2013 10:55 AM CDT Pt calling to back to let us know that the reaction maybe from sun. Rash is still there, but only both arms. Pt stated that the rash did not spread elsewhere and it seem to be a bit better today. Pt isstill on Phentermine and is going to continue Claritin and Benadryl until rash clears up. Advise pt to still monitor sx and if anything new to go to the er. Pt is coming in tomorrow to see diet and PT.RM is still not in the office, but will notify RM of what's going on. Telephone Encounter - Obed Springer - 03/13/2013 3:45 PM CDT Consult with Joi and YANELIS about message below as RM is not in the office this afternoon. Per YANELIS, reaction may not be from Phentermine as pt has been on med for a while now. Ok to take benadryl or Claritin. Called pt back and notified pt of MKD's advise. Pt stated that she has really sensitive skin and may react to something but unsure to what. Pt declined any swelling or other sxs. Advise pt to go to er if there is any sob, breathing problem, swelling. Telephone Encounter - Obed Springer - 03/13/2013 3:37 PM CDT Pt called and stated that she's been on Phentermine for a while now. Just recently pt had notice some rash/ hives. Yesterday didn't seem to be as bad as today. Pt wondering if she should discontinue medication or can she just take benadryl. Pt declined any sob, chest pain, problem breathing, heart racing. documented in this encounter Plan of Treatment Not on filedocumented as of this encounter Visit Diagnoses Not on filedocumented in this encounter Care Teams Playground Equipment Erector Relationship Specialty Start Date End Date Pam Walters MD PCP - General Family Practice 03/12/10 10/10/[address] [address] documented as of this encounter
--- OUTSIDE RECORDS SUMMARY | 2022-07-27 08:43 | XMS_ITS | Encounter Summary ---
:1960 Author Organization [facility] Address [address] [place] [address] Care Team Providers Name Role Phone Pam Walters MD Primary Care Provider Encounter Details Date Type Department Care Team Description 02/05/2013 Results Only [facility] Doreen, Jason grubbs, Orthopedic Care [facility] [address] [facility] [address] [facility] [address] [place] [phone] (Wo rk) Social History Tobacco Use [...] Priority Date/Time Associated Diagnosis Comme nts XR HIP CONTRAST 02/05/2013 10:44 AM Resul ts for this CT/MR INJECTION CDT procedure ar e in the results section. documented in this encounter Results XR Hip Gadolinium Injection (02/05/2013 10:44 AM CDT) Anatomical Region Laterality Modality Abdomen/Pelvis Other Specimen (Source) Anatomical Collection Method Collection Time Re ceived Time Location / / Volume Laterality 02/05/2013 10:44 AM CDT Impressions 02/05/2013 12:01 PM CDT IMPRESSION: Technically successful left hip gadolinium injection. JASON FAUST MD Narrative 02/05/2013 12:01 PM CDT HIP GADOLINIUM INJECTION HISTORY: Left hip pain. COMPARISON: None. PROCEDURE: The risks (including bleeding , infection, and allergy to contrast and medications) and benefits o f the procedure were explained to the patient and consent was obtained. Using sterile technique and 15 seconds of fluoroscopic guidance, a #22 gauge needle was placed into the left hip joint using an anterior approach. 3 mL of lidocaine 1% was used for local anest hesia. 3 mL of Isovue m 200 contrast was injected to confirm intra-a rticular location of the needle tip. 12 mL of dilute gadolinium a nd epinephrine in preservative-free saline were injected i nto the left hip joint. There were no initial complications. Procedure Note Jason Faust MD - 02/05/2013Forma tting of this note might be different from the original. HIP GADOLINIUM INJECTION HISTORY: Left hip pain. COMPARISON: None. PROCEDURE: The risks (including bleeding , infection, and allergy to contrast and medications) and benefits o f the procedure were explained to the patient and consent was obtained. Using sterile technique and 15 seconds of fluoroscopic guidance, a #22 gauge needle was placed into the left hip joint using an anterior approach. 3 mL of lidocaine 1% was used for local anest hesia. 3 mL of Isovue m 200 contrast was injected to confirm intra-a rticular location of the needle tip. 12 mL of dilute gadolinium a nd epinephrine in preservative-free saline were injected i nto the left hip joint. There were no initial complications. IMPRESSION IMPRESSION: Technically successful left hip gadolinium injection. JASON FAUST MD Jason Logan MD [facility] DI[facility]NOST[facility]ING ORDER [place] documented in this encounter Visit Diagnoses Not on filedocumented in this encounter Care Teams Used Car Manager Relationship Specialty Start Date End Date Pam Walters MD PCP - General Family Practice 03/12/10 10/10/[address] [address] documented as of this encounter
--- OUTSIDE RECORDS SUMMARY | 2022-07-27 08:43 | XMS_ITS | Encounter Summary ---
:1960 Author Organization [facility] Address [address] [place] [address] Care Team Providers Name Role Phone Pam Walters MD Primary Care Provider Reason for Visit Reason Comments Hip left f/u L hip MRI results Encounter Details Date Type Department Care Team Description 02/08/2013 Office Visit [facility] And Jason Logan Hip osteoarthritis Orthopedic Care Jw Wooten MD (Primary Dx) [facility]OPEDICS [address] [facility] [address] [place], [place] [address] [place] [phone] (Wo rk) Social History Tobacco Use Types [...] Sign Reading Time Taken Comments Blood Pressure 118/78 02/08/2013 11:02 AM CDT Pulse - - Temperature - - Respiratory Rate - - Oxygen Saturation - - Inhaled Oxygen Concentration - - Weight 135.6 kg (299 lb) 02/08/2013 11:02 AM CDT Height 180.3 cm (5' 11) 02/08/2013 11:02 AM CDT Body Mass Index 41.7 02/08/2013 11:02 AM CDT documented in this encounter Progress Notes Jason Logan MD - 02/08/2013 11:03 AM CDT HISTORY OF PRESENT ILLNESS: Annalisa Jacob is a 52 year old female who is seen in follow up for L hip MRI results. MRI LEFT LOWER EXTREMITY JOINT WITH CONTRAST February 05, 2013 at 1131 hours HISTORY: Left hip pain and catching with activity for at least one year. No specific injury. TECHNIQUE: Intra-articular injection of gadolinium performed by Dr. Faust and that procedure will be reported separately. Multiplanar T1, T2 and STIR images. COMPARISON: None. FINDINGS: Exam is slightly compromised by large body habitus. No acute appearing bony abnormalities. There is left hip degenerative joint disease. This includes a subchondral cyst in the weightbearing acetabular region anteriorly measuring up to 2 cm communicating with the joint space. There is also a small cystic structure deep to the left iliopsoas muscle at the same level. However, this does not show any internal contrast material and thus does not communicate with the subchondral acetabular cyst at this time. The cyst deep to the iliopsoas muscle measures up to 1.7 cm and both cysts are identified on images 2 and 3 of series 5. There is moderate diffuse articular cartilage thinning and irregularity as well as moderate degenerative marginal bony spurring. The superior acetabular labrum is very irregular consistent with diffuse degeneration and tearing (images 9 through 12 of series 9). This degeneration and tearing also extends into the anterior acetabular labrum. The posterior aspect of the acetabular labrum appears relatively intact. No loose bodies are seen and there is no evidence for synovitis. Soft tissue surrounding the left hip are unremarkable. Result Impression IMPRESSION: 1. Compromised exam because of large body habitus. 2. At least moderate left hip degenerative joint disease. Prominent acetabular subchondral cyst communicating with the joint space. 3. Additional small cystic to the iliopsoas muscle at the same level as the acetabular cyst without communication. 4. Degeneration/tearing of superior and anterior acetabular labrum. CONNOR CHANG MD PHYSICAL EXAM: BP 118/78 Ht 5' 11 (1.803 m) Wt 299 lb (135.626 kg) BMI 41.70 kg/m2 Body mass index is 41.70 kg/(m^2). GENERAL APPEARANCE: healthy, alert and no [...] 90 degrees, internal and external rotation is 30/60 respectively, with pain at extremes. The calves and thighs are symmetric, without atrophy and non-tender to palpation. Ирина's sign is negative, bilaterally. CMS is intact to the toes. IMAGING INTERPRETATION: As above ASSESSMENT / PLAN: Degenerative joint disease, hip with some MRI evidence of degenerative labral tear. It's unclear whether her pain is due to the arthritic condition or from the labral tear itself. Todifferentiate I've offered her a intra-articular corticosteroid injection which should calm down herarthritic pain but if she has any mechanical-type symptoms from the torn labrum, her pain may persist. If that's the case I think that she maybe a candidate for hip arthroscopy. I ordered the corticosteroid injection, and shortening of the results. Zeb Logan MD Dept. Orthopedic Surgery [facility] [place] documented in this encounter Nursing Notes 02/08/2013 11:00 AM CDT >> Laura Broussard Jes Feb 08, 2013 11:04 AM Patient presents with: Hip left - f/u L hip MRI results Initial BP 118/78 Ht 5' 11 (1.803 m) Wt 299 lb (135.626 kg) BMI 41.70 kg/m2 Estimated Body mass index is 41.70 kg/(m^2) as calculated from the following: Height as of this encounter: 5' 11(1.803 m). Weight as of this encounter: 299 lb(135.626 kg). BP completed using cuff size: NA (Not Taken) Laura Broussard ATC documented in this encounter Plan of Treatment Not on filedocumented as of this encounter Visit Diagnoses Diagnosis Hip osteoarthritis - Primary Osteoarthrosis, unspecified whether gene ralized or localized, pelvic region and thigh documented in this encounter Care Teams Information Technology Officer Relationship Specialty Start Date End Date Pam Walters MD PCP - General Family Practice 03/12/10 10/10/13 [place] [address] documented as of this encounter
--- OUTSIDE RECORDS SUMMARY | 2022-07-27 08:43 | XMS_ITS | Encounter Summary ---
:1960 Author Organization [facility] Address [address] [place] [address] Care Team Providers Name Role Phone Pam Walters MD Primary Care Provider Encounter Details Date Type Department Care Team Description 01/16/2013 Therapy Visit [facility] and Jean Claude Barrera (Primary Dx); ORTHOPEDIC CARE TRINA Villagran DC Left hip pain [facility] [address] [place] [address] [address] [place] [address] Social History Tobacco Use Types Packs/Day Years Used Date Smoking Tobacco: Former Cigarettes 1 20 Smokeless Tobacco: Never Comments: 07/2008 Alcohol Use Standard Drinks/Week Comments Yes 0 (1 standard drink = 0.6 oz pure alcoho l) very little Sex Assigned at Date Recorded Not on file documented as of this encounter Patient Instructions Patient InstructionsBraJean Claude oliveira DC - 01/16/2013 3:30 PM CDT PRN documented in this encounter Progress Notes Jean Claude Barrera DC - 01/16/2013 3:28 PM CDT VISIT 4 SUBJECTIVE: Worse. Marked increase in her hip pain for the past 4-5 days for no reason. Even short walking distances increases her pain. Very frustrated. Gets hours to a few days of relief with the treatment here. Getting her right knee surgery tomorrow. OBJECTIVE: Same issue noted with left hip joint dysfunction present. ASSESSMENT: Worse PLAN: Extra-Spinal Chiropractic Manipulative Therapy: LAD to the left hip x2 with cavitation Recommend she consult with her knee surgeon about seeing someone for her left hip pain. documented in this encounter Plan of Treatment Not on filedocumented as of this encounter Procedures Procedure Name Priority Date/Time Associated Diagnosis Comme [facility] CHIROPRAC Routine 01/16/2013 3:30 PM CDT Lumbago MANIP,EXTRASPINAL,1+ Left hip pain REGNS documented in this encounter Visit Diagnoses Diagnosis Lumbago - Primary Left hip pain Pain in joint, pelvic region and thigh documented in this encounter Care Teams Plate Grinder Relationship Specialty Start Date End Date Pam Walters MD PCP - General Family Practice 03/12/10 10/10/[address] [address] documented as of this encounter
--- OUTSIDE RECORDS SUMMARY | 2022-07-27 08:43 | XMS_ITS | Encounter Summary ---
:1960 Author Organization [facility] Address [address] [place] [address] Care Team Providers Name Role Phone Pam Walters MD Primary Care Provider Reason for Visit Reason Comments Hip left US injection L hip Encounter Details Date Type Department Care Team Description 02/13/2013 Office Visit [facility] Roth (deg enerative joint disease) of hip (Primary Dx); Orthopedic MD Dipti Left [facility] [address] [place] [address] [address] [place] [phone] Social History Tobacco Use Types Packs/Day [...] Sign Reading Time Taken Comments Blood Pressure 125/88 02/13/2013 11:01 AM CDT Pulse - - Temperature - - Respiratory Rate - - Oxygen Saturation - - Inhaled Oxygen Concentration - - Weight 135.6 kg (299 lb) 02/13/2013 11:01 AM CDT Height 180.3 cm (5' 11) 02/13/2013 11:01 AM CDT Body Mass Index 41.7 02/13/2013 11:01 AM CDT documented in this encounter Patient Instructions Patient InstructionsLaura Brousasrd - 02/13/2013 11:03 AM CDT Assessment: 1. DJD (degenerative joint disease) of hip 2. Left hip pain Plan: Discussed the assessment with the patient. Steroid injecton of the left hip was performed today in clinic Icing for the next 1-2 days may be helpful for pain. Injection may take 10-14 days to see the full effect. Follow up: 3-6 months or sooner if needed. documented in this encounter Progress Notes Meme Roth MD - 02/13/2013 11:01 AM CDT Sports [facility] Procedure Ultrasound Guided Left Intra-Articular Hip Injection Technique: The risks of the procedure were explained to the patient. A consent was signed for the intra-articular hip injection. The patient was evaluated with a Informed Tradese ultrasound machine using a 12MHz linear probe. 8 ml of 1% lidocaine was used for local anesthesia. The Left hip was prepped and draped in a sterilemanner. Ultrasound identification of the acetabulum, femoral head, and femoral neck in both long andshort axis. The location of the femoral vessels were noted and marked. The probe was placed in a oblique-sagittal axis to the Left femoral neck. A 3.5 inch 20 gauge needle was placed under ultrasound guidance into the anterior hip capsule. A mixture of 2 ml's 1% lidocaine, 2 ml's 0.5% marcaine and 2 ml kenalog (40mg/ml) was injected without difficulty on oblique-sagittal axis view. The needle was removed and there was good hemostasis without complications. There was ultrasound documentation of needle placement and injection. Pre-procedural pain 2/10. Post procedural pain 0/10. documented in this encounter Nursing Notes 02/13/2013 11:00 AM CDT >> Laura Broussard [facility] Feb 13, 2013 11:08 AM Patient presents with: Hip left - US injection L hip Initial BP 125/88 Ht 5' 11 (1.803 m) Wt 299 lb (135.626 kg) BMI 41.70 kg/m2 Estimated Body mass index is 41.70 kg/(m^2) as calculated from the following: Height as of this encounter: 5' 11(1.803 m). Weight as of this encounter: 299 lb(135.626 kg). BP completed using cuff size: large Laura Broussard ATC documented in this encounter Plan of Treatment Scheduled Orders Name Type Priority Associated Diagnoses Order S chedule US-guided needle Imaging Routine DJD (degenerative joint Ordered: 02/13/2013 placement disease) of hip Left hip pain documented as of this encounter Procedures Procedure Name Priority Date/Time Associated Diagnosis Comme nts HC DRAIN/INJ MAJOR Routine 02/13/2013 1:30 PM CDT DJD (degener ative joint JOINT/BURSA W/O US disease) of h ip Left hip pain documented in this encounter Visit Diagnoses Diagnosis DJD (degenerative joint disease) of hip - Primary Osteoarthrosis, unspecified whether gene ralized or localized, pelvic region and thigh Left hip pain Pain in joint, pelvic region and thigh documented in this encounter Care Teams Moveman Relationship Specialty Start Date End Date Pam Walters MD PCP - General Family Practice 03/12/10 10/10/[address] [address] documented as of this encounter
--- OUTSIDE RECORDS SUMMARY | 2022-07-27 08:43 | XMS_ITS | Encounter Summary ---
:1960 Author Organization [facility] Address [address] [place] [address]. [place] [address] Care Team Providers Name Role Phone Pam Walters MD Primary Care Provider Reason for Visit (Routine) - Closed Specialty Diagnoses / Procedures Referred By Contact Refer red To Contact Radiology Diagnoses SCREENING BILATERAL-DIGITAL Procedure Notes: Routine. [facility] Procedures RADIOLOGY [address], [address] [place], [place] [address] Phone: Fax: Referral ID Status Reason Start Date Expiration Date Visits Requ ested Visits Authorized [id number] Closed 03/22/2013 03/19/2014 1 1 Encounter Details Date Type Department Care Team Description 03/22/2013 Hospital Encounter [facility] Jason Logan [facility] Breast [place] MD Je [address], [facility] [address] [place], [place] [address] [facility] [address] [phone] [place], [place] [phone] (Wo rk) Social History Tobacco Use Types [...] capsule taking 3000 mg total per day Kjplvhwnraq-[id number] Take by mouth. 0 2011 C-Mn (GLUCOSAMINE 1500 COMPLEX) CAPS ibuprofen (ADVIL,MOTRIN) Take 1 tablet by 100 tablet 0 03/09 800 MG tabletIndications: mouth every 8 hours Neck pain as needed for pain. Minoxidil (ROGAINE EX) Externally apply 0 topically. MULTI-VITAMIN OR TABS ONE TABLET DAILY 3 12/18/19 10 phentermine (ADIPEX-P) Take 1 tablet by 30 tablet 0 013 03/30/2013 37.5 MG mouth every morning tabletIndications: Morbid (before breakfast). obesity (H) documented as of this encounter Plan of Treatment Not on filedocumented as of this encounter Visit Diagnoses Not on filedocumented in this encounter Care Teams Antisqueak Filler Relationship Specialty Start Date End Date Pam Walters MD PCP - General Family Practice 03/12/10 10/10/[address] [id number] documented as of this encounter
--- OUTSIDE RECORDS SUMMARY | 2022-07-27 08:43 | XMS_ITS | Encounter Summary ---
:1960 Author Organization [facility] Address [address] [place] [address]. [place] [address] Care Team Providers Name Role Phone Pam Walters MD Primary Care Provider Encounter Details Date Type Department Care Team Description 04/26/2013 Office Visit [facility] Weight Doctor, None, MD Management [facility] Ed catherine 2, [facility] Physical Therapy [address] [facility] [address] [place] [address] Social History Tobacco Use Types [...] - Inhaled Oxygen Concentration - - Weight 123.9 kg (273 lb 3.2 oz) 04/26/2013 10:00 AM CDT Height 180.3 cm (5' 10.98) 04/26/2013 10:00 AM CDT Body Mass Index 38.12 04/26/2013 10:00 AM CDT documented in this encounter Progress Notes Liz Mejia, PT - 04/26/2013 1:36 PM CDT Non Surgical Weight Loss Clinic Progress Note Review of the month: Continues to be bothered by hip pain. Returned to ortho MD (not surgeon) who gave 2nd cortisone injection. Plan is to wait, see if debilitating pain returns and then consult with surgeon. Pt still exercising in the pool but not as aggressively as she'd like. Daughter is joining program and pt is pleased she has been able to motivate her into action. Patient plan/goals for the until next follow up: Strengthening exercises for hip, demonstrated for patient and encouraged to keep in pain free zone, both on land and in pool. (SLR, LAQ, standing hip flexion, isometric hip abd/add) Standardized Measures: PAVS:300 documented in this encounter Plan of Treatment Not on filedocumented as of this encounter Visit Diagnoses Not on filedocumented in this encounter Care Teams Roaster Supervisor Relationship Specialty Start Date End Date Pam Walters MD PCP - General Family Practice 03/12/10 10/10/[address] [address] documented as of this encounter
--- OUTSIDE RECORDS SUMMARY | 2022-07-27 08:43 | XMS_ITS | Encounter Summary ---
:1960 Author Organization [facility] Address [address] [place] [address] Care Team Providers Name Role Phone Pam Walters MD Primary Care Provider Encounter Details Date Type Department Care Team Description 03/22/2013 Hospital Encounter [facility] Jason Logan Left [facility] pain [facility] [address] [facility] [phone] [facility] [address] [place] [address] (Wo rk) Social History Tobacco [...] Sign Reading Time Taken Comments Blood Pressure 122/81 03/22/2013 8:42 AM CDT Pulse 90 03/22/2013 8:42 AM CDT Temperature - - Respiratory Rate - - Oxygen Saturation - - Inhaled Oxygen Concentration - - Weight - - Height - - Body Mass Index - - documented in this encounter Discharge Instructions Discharge InstructionsOc English RN - 03/22/2013 10:14 AM CDT Written and verbal instructions given and pt verbalized understanding. documented in this encounter Medications at Time [...] capsule taking 3000 mg total per day Hbsjvzyptex-Urbdkjeoy-Lnm Take by mouth. 0 2011 C-Mn (GLUCOSAMINE [...] Diagnosis Comme nts XR JOINT INJECTION Routine 03/22/2013 9:46 AM Left hip pain Re sults for this MAJOR RIGHT CDT procedure are i n the results section. documented in this encounter Results XR Joint Injection Aspiration Major (03/22/2013 9:46 AM CDT) Anatomical Region Laterality Modality Lower Extremity Right Computed Radiography Specimen (Source) Anatomical Collection Method Collection Time Re ceived Time Location / / Volume Laterality 03/22/2013 9:46 AM CDT Impressions 03/22/2013 3:15 PM CDT IMPRESSION: Technically successful left hip steroid/anesthetic injection. RADHA BANKS MD Narrative 03/22/2013 3:15 PM CDT LEFT HIP INJECTION March 22, 2013 9:47 A M HISTORY: Hip pain on the left. PROCEDURE: The risks (including bleeding , infection, and allergy to contrast and medications) and benefits o f the procedure were explained to the patient and consent was obtained. Using sterile technique and fluoroscopic guidance, a # 22 gauge needle was placed into the left hip joint using an anterio r approach. 2 mL of contrast was injected to confirm intraarticular l ocation of the needle tip. 40 mg of Kenalog and 5-7 mL Marcaine 0.5% w ere injected. No initial complication. The patients pain level (0-10 scale) wer e as follows: Preinjection: 2 Postinjection: 0 Procedure Note Radha Banks MD - 03/22/2013Forma tting of this note might be different from the original. LEFT HIP INJECTION March 22, 2013 9:47 A M HISTORY: Hip pain on the left. PROCEDURE: The risks (including bleeding , infection, and allergy to contrast and medications) and benefits o f the procedure were explained to the patient and consent was obtained. Using sterile technique and fluoroscopic guidance, a # 22 gauge needle was placed into the left hip joint using an anterio r approach. 2 mL of contrast was injected to confirm intraarticular l ocation of the needle tip. 40 mg of Kenalog and 5-7 mL Marcaine 0.5% w ere injected. No initial complication. The patients pain level (0-10 scale) wer e as follows: Preinjection: 2 Postinjection: 0 IMPRESSION IMPRESSION: Technically successful left hip steroid/anesthetic injection. RADHA BANKS MD Jason Logan MD IMG DIAGNOSTIC IMAGING ORDER MONTSERRAT documented in this encounter Visit Diagnoses Diagnosis Left hip pain Pain in joint, pelvic region and thigh documented in this encounter Administered Medications Inactive Administered Medications - up to 3 most recent administrations Medication Order MAR Action Action Date Dose Rate Site bupivacaine (MARCAINE) 0.5 % injection Starting on Tue03/22/13 at 0855, For 1 dose, OC ENGLISH: odalys override BUPivacaine (MARCAINE) injection 0.5% Given by Other 03/22/2013 9:45 AM CDT 7 mLs (PF) 20 mg (4 mL), INTRA-ARTICULAR, ONCE, On Tue03/22/13 at 0900, For 1 dose iohexol (OMNIPAQUE) 180 mg/mL Given by Other 03/22/2013 9:45 AM CDT 1 mL injection 1 mL 1 mL, INTRA-ARTICULAR, ONCE, On Tue03/22/13 at 0900, For 1 dose Lidocaine 1 % injection 5 mL Given by Other 03/22/2013 9:46 AM CDT 5 mLs 5 mL, Subcutaneous, ONCE, On Jes 03/22/13 at 0900, For 1 dose triamcinolone acetonide (KENALOG-40) 40 MG/ML injection Starting on Jes 03/22/13 at 0855, For 1 dose, OC ENGLISH: odalys override triamcinolone acetonide (KENALOG-40) Given by Other 03/22/2013 9:46 AM CDT 40 mg injection 40 mg 40 mg, INTRA-ARTICULAR, ONCE, On Jes 03/22/13 at 0900, For 1 dose documented in this encounter Care Teams Steam Frame Operator Relationship Specialty Start Date End Date Pam Walters MD PCP - General Family Practice 03/12/10 10/10/[address] [address] documented as of this encounter
--- OUTSIDE RECORDS SUMMARY | 2022-07-27 08:43 | XMS_ITS | Encounter Summary ---
:1960 Author Organization [facility] Address [address] [place] [address] Care Team Providers Name Role Phone Pam Walters MD Primary Care Provider Encounter Details Date Type Department Care Team Description 01/11/2013 Hospital Encounter [facility] Pam Walters MD Radiology - [facility] Heart [facility] [address] [place] [address] [place] [address] [phone] Social History Tobacco Use Types Packs/Day Years [...] capsule taking 3000 mg total per day Usnhtilinvl-Loopbgqph-Sda Take by mouth. 0 2011 C-Mn (GLUCOSAMINE 1500 COMPLEX) CAPS ibuprofen (ADVIL,MOTRIN) Take 1 tablet by 100 tablet 0 03/09 800 MG tabletIndications: mouth every 8 hours Neck pain as needed for pain. Minoxidil (ROGAINE EX) Externally apply 0 topically. MULTI-VITAMIN OR TABS ONE TABLET DAILY 3 12/18/19 10 cetirizine (ZYRTEC) 10 MG Take 1 tablet by 0 /01/201203/16/2013 tablet mouth every evening. phentermine (ADIPEX-P) Take 1/2 tablet PO 30 tablet 0 12/1501/30/2013 37.5 MG qday in AM for 2 tabletIndications: Morbid days, then increase obesity (H) to 1 tablet PO qday in AM. documented as of this encounter Plan of Treatment Not on filedocumented as of this encounter Procedures Procedure Name Priority Date/Time Associated Diagnosis Comme nts ECHO COMPLETE Routine 01/11/2013 2:08 PM Results for this CDT procedure are i n the results section . documented in this encounter Results Echocardiogram (01/11/2013 2:08 PM CDT) [facility] Method Time Signature [facility] Interpretation Summary RESULTS This was essentially a normal study. There is no comparison study available. Left ventricular systolic function is normal. Th e visual ejection fraction is estimated at 55-60%. Grade I left ventricular di astolic dysfunction is noted. Right ventricular systolic pressure is normal. No significan t valvular abnormalities. PatientHeight: 71 in PatientWeight: 298 lbs SystolicPressure: 130 mmHg DiastolicPressure: 78 mmHg BSA 2.5 m^2 Left Ventricle The left ventricle is normal in size. There is normal left ventricular wall thickness. Left ventricular systolic function is normal. The visual ejection fraction is estimated at 55-60%. Grade I left ventricular diastolic dysfunction is noted. E by E prime ratio is less than 8, that likely suggests norm al left ventricular filling pressures. Right Ventricle The right ventricle is normal in structure, function and siz e. Atria Normal left atrial size. Right atrial size is normal. There is no color Doppler evidence of an atrial shunt. Mitral Valve The mitral valve is normal in structure and function. There is trace mitral regurgitation. Tricuspid Valve The tricuspid valve is normal in structure and function. There is trace tricuspid regurgitation. Right ventricular systolic pressure is normal. Aortic Valve Normal tricuspid aortic valve. No aortic regurgitation is present. Pulmonic Valve The pulmonic valve is normal in structure and function. There is no pulmonic valvular regurgitation. Vessels The aortic root is normal size. Normal ascending aorta. The IVC is normal in size and reactivity with respirat ion, suggesting normal central venous pressure. Pericardium There is no pericardial effusion. Rhythm The rhythm was normal sinus. Procedure Complete Echo Adult. MMode 2D Measurements & Calculations IVSd: 1.1 cm LVIDd: 4.9 cm LVIDs: 2.8 cm LVPWd: 0.95 cm FS: 43 % LV mass(C)d: 178 grams Ao root diam: 3.6 cm LA dimension: 3.6 cm asc Aorta: 2.9 cm LA/Ao: 1.0 Doppler Measurements & Calculations MV E point: 65 cm/sec MV A point: 85 cm/sec MV E/A: 0.77 MV dec time: 0.28 sec TR Max cady: 236 cm/sec TR Max P mmHg Interpreting Physician: ??Renard Lira MD electronically signed on 01-11-2013 15:56:35 Anatomical Region Laterality Modality Echocardiography Specimen (Source) Anatomical Collection Method Collection Time Re ceived Time Location / / Volume Laterality 01/11/2013 2:08 PM CDT Pam Walters MD CV ECHO ORDERABLES documented in this encounter Visit Diagnoses Not on filedocumented in this encounter Care Teams Mold Yard Crane Operator Relationship Specialty Start Date End Date Pam Walters MD PCP - General Family Practice 03/12/10 10/10/[address] [address] documented as of this encounter
--- OUTSIDE RECORDS SUMMARY | 2022-07-27 08:43 | XMS_ITS | Encounter Summary ---
:1960 Author Organization [facility] Address [address] [place] [address] Care Team Providers Name Role Phone Pam Walters MD Primary Care Provider Reason for Visit Reason Comments Weight Problem diet appt Encounter Details Date Type Department Care Team Description 04/02/[address] [facility] Weight Doctor, None, MD [facility] Ed catherine [address], [place] Diet, RD [address] [facility] [facility] [address] [place] [address] Social History Tobacco Use Types [...] - Inhaled Oxygen Concentration - - Weight 126.6 kg (279 lb) 04/02/2013 2:15 PM CDT Height 180.3 cm (5' 11) 04/02/2013 2:15 PM CDT Body Mass Index 38.91 04/02/2013 2:15 PM CDT documented in this encounter Progress Notes Stormy Edwards - 04/02/2013 2:21 PM CDT MEDICAL WEIGHT LOSS FOLLOW UP DIAGNOSIS: Obesity- Class II NUTRITION HISTORY: Breakfast: oatmeal raisin muffin (homemade) or 2 hard boiled eggs with mexican yogurt Lunch: veggie or chicken burger patties on whole wheat sandwich thin with grapes, mexican yogurt Dinner: chicken or turkey, mexican yogurt, hard boiled egg, mixed veggies Snacks: mexican yogurt Beverage Choices: coffee (1 caffinated, rest decaf), >64 oz. water Exercise: swimming daily (45-60 minutes) Other: Pt tracking on [employer], hitting ~1400 calories most days (really only rotates through about 3 different meal patterns); is having trouble with constipation/using a stool softener ANTHOPOMETRICS: Initial Weight: 310 pounds Previous Weight: 298 pounds Current Weight: 279 pounds Weight Change: decrease 19 pounds BMI: 38.99 kg/m2 MEDICATIONS: phentermine EVALUATION/PROGRESS TOWARDS GOALS: Previous Goals: Eat 3-4 servings of fruit/vegetables daily Previous Nutrition Diagnosis: Obese class III related to excess energy intake as evidence by BMI of 41.65 kg/m2-no change, modified below Current Nutrition Diagnosis: Obese class II related to excess energy intake as evidence by BMI of 38.93 kg/m2 INTERVENTION: Nutrition Prescription: Recommend modified nutrient intake by decreasing energy intake Implementation: Meals and Snacks- 3 meals, 0-1 snacks Nutrition Education (Content): Discussed previous goals and determined new goals Encourage physical activity Supported patient in attempted weight loss and behavior changes Discussed suggestions to increase fiber content of diet Congratulated patient on successful weight loss Patient able to demonstrate understanding by listing lean high protein foods Anticipate good compliance Goals: Increase fruit/vegetable intake to 4 per day Try at least one new recipe (suggestions provided, discussed quinoa) Journal intake once/week Follow Up/Monitoring: Other - patient to follow up in 4 weeks Time Spent With Patient: 20 Minutes documented in this encounter Plan of Treatment Not on filedocumented as of this encounter Visit Diagnoses Not on filedocumented in this encounter Care Teams Hat Brim Curler Relationship Specialty Start Date End Date Pam Walters MD PCP - General Family Practice 03/12/10 10/10/[address] [address] documented as of this encounter
--- OUTSIDE RECORDS SUMMARY | 2022-07-27 08:43 | XMS_ITS | Encounter Summary ---
:1960 Author Organization [facility] Address [address] [place] [address]. [place] [address] Care Team Providers Name Role Phone Pam Walters MD Primary Care Provider Reason for Visit (Routine) - Closed Specialty Diagnoses / Procedures Referred By Contact Refer red To Contact Radiology Diagnoses GADOLINIUM INJECTION - HIP Procedure Notes: Left hip pain radiating down leg. Rh Xray Procedures RADIOLOGY [address] [place], [place] [address] Phone: Fax: Referral ID Status Reason Start Date Expiration Date Visits Requ ested Visits Authorized [id number] Closed 02/05/2013 01/25/2014 1 1 Encounter Details Date Type Department Care Team Description 02/05/2013 Hospital Encounter [facility] Jason Logan Imaging MD Je [address] [facility] [phone] [address] [facility] [address] [place] [address] (Wo rk) Social History Tobacco [...] capsule taking 3000 mg total per day Stfsbzdjtks-Yhaoyhlrj-Aee Take by mouth. 0 2011 C-Mn (GLUCOSAMINE 1500 COMPLEX) CAPS ibuprofen (ADVIL,MOTRIN) Take 1 tablet by 100 tablet 0 03/09 800 MG tabletIndications: mouth every 8 hours Neck pain as needed for pain. Minoxidil (ROGAINE EX) Externally apply 0 topically. MULTI-VITAMIN OR TABS ONE TABLET DAILY 3 12/18/19 10 cetirizine (ZYRTEC) 10 MG Take 1 tablet by 0 10/1403/16/2013 tablet mouth every evening. phentermine (ADIPEX-P) Take 1 tablet by 30 tablet 0 013 03/01/2013 37.5 MG mouth every morning tabletIndications: Morbid (before breakfast). obesity (H) documented as of this encounter Plan of Treatment Not on filedocumented as of this encounter Visit Diagnoses Not on filedocumented in this encounter Administered Medications Inactive Administered Medications - up to 3 most recent administrations Medication Order MAR Action Action Date Dose Rate Site EPINEPHrine (ADRENALIN) injection Given 02/05/2013 11:04 AM CDT 0.1 mg 0.1 mg 0.1 mg, INTRA-ARTICULAR, ONCE, On Tue02/05/13 at 1015, For 1 dose, Not for direct undiluted intravenous injection. (1mg/mL = 1:1,000 concentration) gadopentetate dimeglumine (MAGNEVIST) IV Given 02/05/2013 11:04 AM CDT 0.2 mLs solution 0.2 mL 0.2 mL, INTRA-ARTICULAR, ONCE, On Tue02/05/13 at 1015, For 1 dose iopamidol (FGLVIV-B-900) 41% Given by Other 02/05/2013 10:43 AM CDT 3 mLs solution 10 mL Clinician 10 mL, INTRA-ARTICULAR, ONCE, On Tue02/05/13 at 1045, For 1 dose lidocaine (PF) (XYLOCAINE) 1 % injection 5 mL Given 02/05/2013 10:44 AM CDT 5 mLs 5 mL, Subcutaneous, ONCE, On Tue02/05/13 at 1045, For 1 dose documented in this encounter Care Teams Data Processing Specialist Relationship Specialty Start Date End Date Pam Walters MD PCP - General Family Practice 03/12/10 10/10/[address] [address] documented as of this encounter
--- OUTSIDE RECORDS SUMMARY | 2022-07-27 08:43 | XMS_ITS | Encounter Summary ---
:1960 Author Organization [facility] Address [address] [place] [address] Care Team Providers Name Role Phone Pam Walters MD Primary Care Provider Reason for Visit Reason Comments Hip left L groin pain, chronic, previ ous SI joint injections and chiro care Encounter Details Date Type Department Care Team Description 01/25/2013 Office Visit [facility] Jason Logan Hip pain (Primary Orthopedic Care Jw Wooten MD Dx) [facility] ORTHOPEDICS [address] [facility] [address] [place] [address] [place] [id number] [place] [phone] (Wo rk) Social History Tobacco Use Types [...] Sign Reading Time Taken Comments Blood Pressure 130/78 01/25/2013 8:54 AM CDT Pulse - - Temperature - - Respiratory Rate - - Oxygen Saturation - - Inhaled Oxygen Concentration - - Weight 135.2 kg (298 lb) 01/25/2013 8:54 AM CDT Height 180.3 cm (5' 11) 01/25/2013 8:54 AM CDT Body Mass Index 41.56 01/25/2013 8:54 AM CDT documented in this encounter Patient Instructions Patient InstructionsLaura Broussard - 01/25/2013 9:17 AM CDT MRI appointment at [facility] on 02/01/13 at 1:45 p.m. Arrive 15 minutes early. If you need to cancel or change the appointment please call [facility] [phone] Please follow up in clinic 3 business days following the MRI *Follow up as needed or as discussed with your care provider *See Chart Note for specific details documented in this encounter Progress Notes Jason Logan MD - 01/25/2013 8:55 AM CDT HISTORY OF PRESENT ILLNESS: Annalisa Jacob is a 52 year old female who is seen in consultation at the request of for L hip pain Present symptoms: pain with standing and walking, swimming, pain radiating down the leg when symptoms are exacerabated Treatments tried to this point: SI joint injections, companion caregiver Orthopedic PMH: see below Past Medical History Diagnosis Date ??? Obesity, [...] s/p cholecystectomy ??? C total knee arthroplasty 2009 right Family History Problem Relation Age of Onset ??? Cancer Maternal Grandfather at 50's-60's YOA, stomach CA ??? Neurological Maternal Grandmother at 80's, had alzheimer's ??? C.A.D. Paternal Grandmother late 30's of [place] ??? Cancer Paternal Grandfather 60's of lung CA,smoker ??? Family History Negative Mother ??? Respiratory Father sarcoidosis ??? Obesity Sister 1-HTN ??? Obesity Brother 1 ??? Colon CA No family hx of ??? Breast CA No family hx of History Social History ??? Marital Status: Spouse Name: Matteo Number of Children: 1 ??? 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 phentermine (ADIPEX-P) 37.5 MG tablet Take 1/2 tablet PO qday in AM for 2 days, then increase to1 tablet PO qday in AM. ??? Minoxidil (ROGAINE EX) Externally apply topically. ??? Vwsalidichk-Qismivwaq-Roz C-Mn (GLUCOSAMINE 1500 COMPLEX) CAPS Take by [...] in mood or affect PHYSICAL EXAM: BP 130/78 Ht 5' 11 (1.803 m) Wt 298 lb (135.172 kg) BMI 41.56 kg/m2 Body mass index is 41.56 kg/(m^2). GENERAL APPEARANCE: healthy, alert and no [...] and external rotation is 30/60 respectively, with no pain. Flexion beyond 90?? does cause some groin discomfort. The calves and thighs are symmetric, without atrophy and non-tender to palpation. Ирина's sign is negative, bilaterally. CMS is intact to the toes. ASSESSMENT / PLAN: Hip pain, possible labral or impingement. I ordered an MRI of the hip. She'll followup after that Imaging Interpretation: None today. I reviewed previous x-rays of the hip which reveal only mild degenerative changes to bilateral hips. Zeb Logan MD Department of Orthopedic Surgery documented in this encounter Nursing Notes 01/25/2013 8:50 AM CDT >> Laura Broussard Jes Jan 25, 2013 8:55 AM Patient presents with: Hip left - L groin pain, chronic, previous SI joint injections and chiro care Initial BP 130/78 Ht 5' 11 (1.803 m) Wt 298 lb (135.172 kg) BMI 41.56 kg/m2 Estimated Body mass index is 41.56 kg/(m^2) as calculated from the following: Height as of this encounter: 5' 11(1.803 m). Weight as of this encounter: 298 lb(135.172 kg). BP completed using cuff size: NA (Not Taken) Laura Broussard ATC documented in this encounter Plan of Treatment Not on filedocumented as of this encounter Visit Diagnoses Diagnosis Hip pain - Primary Pain in joint, pelvic region and thigh documented in this encounter Care Teams Professor Of Forest Planning Relationship Specialty Start Date End Date Pam Walters MD PCP - General Family Practice 03/12/10 10/10/[address] [id number] documented as of this encounter
--- OUTSIDE RECORDS SUMMARY | 2022-07-27 08:43 | XMS_ITS | Encounter Summary ---
:1960 Author Organization [place] Address [address] [place] [address]. [place] [address] Care Team Providers Name Role Phone Pam Walters MD Primary Care Provider Reason for Visit (Routine) - Closed Specialty Diagnoses / Procedures Referred By Contact Refer red To Contact Radiology Diagnoses MRI LOWER EXTREM JOINT W/ CONTRAST LEFT Procedure Notes: Left hip pain radiating down leg. Rh Mri Procedures RADIOLOGY [address] [place], [place] [address] Phone: Fax: Referral ID Status Reason Start Date Expiration Date Visits Requ ested Visits Authorized [id number] Closed 02/02/2013 01/25/2014 1 1 Encounter Details Date Type Department Care Team Description 02/05/[address] [facility] Jason Logan Hip pain [facility] MD Je [address] [facility] [place] [place] [address] [place] [address] [address] [place] [address] (Wo rk) Social History Tobacco [...] capsule taking 3000 mg total per day Sbuqpgwcefy-Nurxplhwq-Wer Take by mouth. 0 2011 C-Mn (GLUCOSAMINE [...] obesity (H) documented as of this encounter Miscellaneous Notes Initial Assessments - Abstract, Provider - 02/05/2013 7:34 PM CDT documented in this encounter Plan of Treatment Not on filedocumented as of this encounter Procedures Procedure Name Priority Date/Time Associated Diagnosis Comme nts MR LOWER EXTREMITY Routine 02/05/2013 11:31 AM Hip pain Re sults for this JOINT LEFT W CDT procedure are i n CONTRAST the results section. documented in this encounter Results MR Lower Extremity Joint Left w Contrast (02/05/2013 11:31 AM CDT) Anatomical Region Laterality Modality Lower Extremity, SUBRAD MR MSK, UMP MR MSK Magnetic Resonance Specimen (Source) Anatomical Collection Method Collection Time Re ceived Time Location / / Volume Laterality 02/05/2013 11:31 AM CDT Impressions 02/05/2013 4:36 PM CDT IMPRESSION: 1. Compromised exam because of large bod y habitus. 2. At least moderate left hip degenerati ve joint disease. Prominent acetabular subchondral cyst communicatin g with the joint space. 3. Additional small cystic to the iliops oas muscle at the same level as the acetabular cyst without communica tion. 4. Degeneration/tearing of superior and anterior acetabular labrum. BRENDAN CHANG MD Narrative 02/05/2013 4:36 PM CDT MRI LEFT LOWER EXTREMITY JOINT WITH CONT RAST February 05, 2013 at 1131 hours HISTORY: Left hip pain and catching with activity for at least one year. No specific injury. TECHNIQUE: Intra-articular injection of gadolinium performed by Dr. Faust and that procedure will be repor nely separately. Multiplanar T1, T2 and STIR images. COMPARISON: None. FINDINGS: Exam is slightly compromised b y large body habitus. No acute appearing bony abnormalities. Ther e is left hip degenerative joint disease. This includes a subchondr al cyst in the weightbearing acetabular region anteriorly measuring u p to 2 cm communicating with the joint space. There is also a small c ystic structure deep to the left iliopsoas muscle at the same level. However, this does not show any internal contrast material and thus does not communicate with the subchondral acetabular cyst at this time . The cyst deep to the iliopsoas muscle measures up to 1.7 cm a nd both cysts are identified on images 2 and 3 of series 5. There is moderate diffuse articular cartilage thinning and irregularity as w ell as moderate degenerative marginal bony spurring. The superior acetabular labrum is very i rregular consistent with diffuse degeneration and tearing (images 9 through 12 of series 9). This degeneration and tearing also exten ds into the anterior acetabular labrum. The posterior aspect of the acetabular labrum appears relatively intact. No loose bodi es are seen and there is no evidence for synovitis. Soft tissue surr ounding the left hip are unremarkable. Procedure Note Brendan Chang MD - 02/05/2013Fo rmatting of this note might be different from the original. MRI LEFT LOWER EXTREMITY JOINT WITH CONT RAST February 05, 2013 at 1131 hours HISTORY: Left hip pain and catching with activity for at least one year. No specific injury. TECHNIQUE: Intra-articular injection of gadolinium performed by Dr. Faust and that procedure will be repor nely separately. Multiplanar T1, T2 and STIR images. COMPARISON: None. FINDINGS: Exam is slightly compromised b y large body habitus. No acute appearing bony abnormalities. Ther e is left hip degenerative joint disease. This includes a subchondr al cyst in the weightbearing acetabular region anteriorly measuring u p to 2 cm communicating with the joint space. There is also a small c ystic structure deep to the left iliopsoas muscle at the same level. However, this does not show any internal contrast material and thus does not communicate with the subchondral acetabular cyst at this time . The cyst deep to the iliopsoas muscle measures up to 1.7 cm a nd both cysts are identified on images 2 and 3 of series 5. There is moderate diffuse articular cartilage thinning and irregularity as w ell as moderate degenerative marginal bony spurring. The superior acetabular labrum is very i rregular consistent with diffuse degeneration and tearing (images 9 through 12 of series 9). This degeneration and tearing also exten ds into the anterior acetabular labrum. The posterior aspect of the acetabular labrum appears relatively intact. No loose bodi es are seen and there is no evidence for synovitis. Soft tissue surr ounding the left hip are unremarkable. IMPRESSION IMPRESSION: 1. Compromised exam because of large bod y habitus. 2. At least moderate left hip degenerati ve joint disease. Prominent acetabular subchondral cyst communicatin g with the joint space. 3. Additional small cystic to the iliops oas muscle at the same level as the acetabular cyst without communica tion. 4. Degeneration/tearing of superior and anterior acetabular labrum. BRENDAN CHANG MD Jason Logan MD IMG MRI ORDERABLES documented in this encounter Visit Diagnoses Diagnosis Hip pain Pain in joint, pelvic region and thigh documented in this encounter Care Teams Parts Salesman Relationship Specialty Start Date End Date Pam Walters MD PCP - General Family Practice 03/12/10 10/10/[address] [address] documented as of this encounter
--- OUTSIDE RECORDS SUMMARY | 2022-07-27 08:43 | XMS_ITS | Encounter Summary ---
:1960 Author Organization [place] Address [address] [place] [address] Care Team Providers Name Role Phone Pam Walters MD Primary Care Provider Reason for Referral Referral not Required - Closed Specialty Diagnoses / Procedures Referred By Contact Refer red To Contact Diagnoses Preop general physical exam Pam Walters MD [facility] CARDIOLOGY [place] [id number] [facility] [place] [address] [facility] [address] [place] [address] [place] [address] Phone: [phone] Fax: Referral ID Status Reason Start Date Expiration Date Visits Requ ested Visits Authorized [id number] Closed 01/11/2013 07/10/2013 1 1 Reason for Visit Reason Comments Pre-Op Exam Encounter Details Date Type Department Care Team Description 01/11/[address] [facility] Pam Walters MD Preop general physical exam (Primary Dx) ; [facility] Abnormal EKG [address] [place], [place] [address] [facility] [address] [place] [address] Social History Tobacco Use Types Packs/Day Years [...] Reading Time Taken Comments Blood Pressure 130/78 01/11/2013 7:56 AM CDT Pulse 95 01/11/2013 7:56 AM CDT Temperature 36.8 ??C (98.2 ??F) 01/11/2013 7:56 AM CDT Respiratory Rate - - Oxygen Saturation 96% 01/11/2013 7:56 AM CDT Inhaled Oxygen Concentration - - Weight 135.2 kg (298 lb) 01/11/2013 7:56 AM CDT Height 180.3 cm (5' 11) 01/11/2013 7:56 AM CDT Body Mass Index 41.56 01/11/2013 7:56 AM CDT documented in this encounter Patient Instructions Patient InstructionsWolPam billingsley MD - 01/11/2013 8:13 AM CDT We did ekg and labs today Good luck with surgery! Go in for echo of heart to further evaluate your heart You can call them to set this up today Great work in weight reduction and keep following up [facility] weight loss clinic Thanks Pam Walters MD documented in this encounter Progress Notes Pam Walters MD - 01/11/2013 7:58 AM CDT [place] [address] Dept: [phone] PRE-OP EVALUATION: Today's date: 01/11/2013 Annalisa Jacob (: 1960) presents for pre-operative evaluation assessment as requested by Dr. Haywood. She requires evaluation and anesthesia risk assessment prior to undergoing surgery/procedure for treatment of Right Knee Scope Date of Surgery/ Procedure: 01/17/2013 Time of Surgery/ Procedure: [facility] Hospital/Surgical Facility: [facility] Fax number for surgical facility: [phone] Primary Physician: Pam Walters Type of Anesthesia Anticipated: General Patient has a Health Care Directive or Living Will: NO HPI: 1. NO - Do you have a history of heart attack, stroke, stent, bypass or surgery on an artery in the head, neck, heart or legs?, 2. NO - Do you ever have any pain or discomfort in your chest?, 3. NO - Have you ever had a severe pain across the front of your chest lasting for half an hour or more?, 4. NO - Do you have a history of Congestive Heart Failure?, 5. NO - Are you troubled by shortness of breath when: walking on the level/ up a slight hill/ at night?, 6. NO - Does your chest ever sound wheezy or whistling?, 7. NO - Do you currently have a cold, bronchitis or other respiratory infection?, 8. NO - Have you had a cold, bronchitis or other respiratory infection within the last 2 weeks?, 9. NO - Do you usually have a cough?,1 0. NO - Do you sometimes get pains in the calves of your legs when you walk?, 11. NO - Do you or anyone in your family have previous history of blood clots?, 12. NO - Do you or does anyone in your family have a serious bleeding problem such as prolonged bleeding following surgeries or cuts?, 13. NO - Have you ever had problems with anemia or been told to take iron pills?, 14. NO - Have you had any abnormal blood loss such as black, tarry or bloody stools, or abnormal vaginal bleeding?, 15. NO - Have you ever had a blood transfusion?, 16. NO - Have you or any of your relatives ever had problems with anesthesia?, 17. NO - Do you have sleep apnea, excessive snoring or daytime drowsiness?, 18. NO - Do you have any prosthetic heart valves?, 19. YES - Do you have prosthetic joints?, 20. NO - Is there any chance that you may be ?} See problem list for active medical problems. Problems all longstanding and stable, except as noted/documented. See ROS for pertinent symptoms related to these conditions. . MEDICAL HISTORY: Patient Active Problem List Diagnosis Date Noted ??? Other abnormal glucose 12/15/2012 ??? Alopecia 12/06/2012 ??? Lumbago 11/21/2012 ??? Left hip pain 11/21/2012 ??? SI (sacroiliac) joint dysfunction 11/08/2012 ??? Tubular adenoma 11/08/2011 ??? Hyperplastic colon polyp 11/08/2011 ??? Obesity, Class III, BMI 40-49.9 (morbid obesity) 11/08/2011 ??? Anxiety 08/31/2010 ??? Achilles bursitis or tendinitis 06/17/2010 ??? CARDIOVASCULAR SCREENING; LDL GOAL LESS THAN 160 06/14/2010 ??? Elevated Blood Pressure Reading without Diagnosis of Hypertension 01/02/2009 ??? BACKACHE NOS 02/14/2006 ??? PAIN IN LIMB 02/14/2006 Past Medical History Diagnosis Date ??? Obesity, [...] s/p cholecystectomy ??? C total knee arthroplasty right Current Outpatient Prescriptions Medication Sig ??? Minoxidil (ROGAINE EX) Externally apply topically. ??? Yaedbynwmza-Bnqkijcdc-Ymf C-Mn (GLUCOSAMINE 1500 COMPLEX) CAPS Take by mouth. ??? cholecalciferol (VITAMIN D) 1000 UNIT tablet Take 1 tablet by mouth daily. ??? fish oil-omega-3 fatty acids (FISH OIL) 1000 MG capsule Take 3 capsules by mouth daily. Pt is taking 3000 mg total per day ??? cetirizine (ZYRTEC) 10 MG tablet Take 1 tablet by mouth every evening. ??? MULTI-VITAMIN OR TABS ONE TABLET DAILY ??? CALCIUM + D 600-200 MG-UNIT PO TABS ONE TABLET DAily WITH MEALS ??? phentermine (ADIPEX-P) 37.5 MG tablet Take 1/2 tablet PO qday in AM for 2 days, then increase to1 tablet PO qday in AM. ??? ibuprofen (ADVIL,MOTRIN) 800 MG tablet Take 1 tablet by mouth every 8 hours as needed for pain. OTC products: Aspirin-last taken past Tuesday-01/02/13 Allergies Allergen Reactions ??? Latex Rash, redness, swelling ??? Penicillins Latex Allergy: yes-itching History Substance Use Topics ??? Smoking status: Former Smoker -- 1.0 packs/day for 20 years Types: Cigarettes ??? Smokeless tobacco: Never Used Comment: 07/2008 ??? Alcohol Use: Yes very little History Drug Use No REVIEW OF SYSTEMS: C: NEGATIVE for fever, chills, change in weight E/M: NEGATIVE for ear, mouth and throat problems R: NEGATIVE for significant cough or SOB CV: NEGATIVE for chest pain, palpitations or peripheral edema EXAM: Pulse 95 Temp 98.2 ??F (36.8 ??C) (Oral) Ht 5' 11 (1.803 m) Wt 298 lb (135.172 kg) BMI 41.56 kg/m2 SpO2 96% GENERAL APPEARANCE: healthy, alert and no distress HENT: ear canals and TM's normal and nose and mouth without ulcers or lesions RESP: lungs clear to auscultation - no rales, rhonchi or wheezes CV: regular rate and rhythm, normal S1 S2, no S3 or S4 and no murmur, click or rub ABDOMEN: soft, nontender, no HSM or masses and bowel sounds normal DIAGNOSTICS: EKG: appears normal, NSR, poor R wave progression , normal axis, normal intervals, no acute ST/T changes c/w ischemia, no LVH by voltage criteria, unchanged from previous tracings Labs Drawn and in Process: Unresulted Labs Ordered in the Past 30 Days of this Admission No orders found from 12/13/2012 to 01/12/2013. IMPRESSION: Reason for surgery/procedure: Knee pain Diagnosis/reason for consult: Medical clearance V72.83 Preop general physical exam (primary encounter diagnosis) Comment: Plan: EKG 12-lead complete w/read - Clinics, CBC with platelets, CARDIOLOGY PROCEDURE ADULT REFERRAL 794.31 Abnormal EKG Comment: Plan: pt reported no chest pain or any other symptoms Patient will do echocardiogram prior to surgery Usage of echocardiogram given her abnormal EKG reviewed with patient The proposed surgical procedure is considered INTERMEDIATE risk. REVISED CARDIAC RISK INDEX The patient has the following serious cardiovascular risks for perioperative complications such as (MS, PE, VFib and 3?? AV Block): No serious cardiac risks INTERPRETATION: 0 risks: Class I (very low risk - 0.4% complication rate) The patient has the following additional risks for perioperative complications: No identified additional risks 1. Preop general physical exam (V72.83) RECOMMENDATIONS: --Approval given to proceed with proposed procedure, without further diagnostic evaluation Signed Electronically by: Pam Walters MD, MD Copy of this evaluation report is provided to requesting physician. [facility] Preop Guidelines 2013 Patient Instructions We did ekg and labs today Good luck with surgery! Great work in weight reduction and keep following up [facility] weight loss clinic Thanks Pam Walters MD documented in this encounter Nursing Notes 01/11/2013 8:00 AM CDT >> NEAL JOHANSEN [facility] January 11, 2013 2:14 PM FAXED 13 PREOP OFFICE VISIT/LABS/EKG TO [phone] AT 2PM ON 01/11/13.Neal Johansen [facility] >> NEAL JOHANSEN [facility] January 11, 2013 8:05 AM Patient presents with: Pre-Op Exam Initial BP 130/78 Pulse 95 Temp 98.2 ??F (36.8 ??C) (Oral) Ht 5' 11 (1.803 m) Wt 298 lb (135.172 kg) BMI 41.56 kg/m2 SpO2 96% Estimated Body mass index is 41.56 kg/(m^2) as calculated fromthe following: Height as of this encounter: 5' 11(1.803 m). Weight as of this encounter: 298 lb(135.172 kg). BP completed using cuff size: large Neal Johansen CASING WRINGER OPERATOR documented in this encounter Plan of Treatment Scheduled Referrals Name Type Priority Associated Diagnoses Order S chedule CARDIOLOGY PROCEDURE Referral Routine Preop general physic al Ordered: 01/11/2013 ADULT REFERRAL exam documented as of this encounter Procedures Procedure Name Priority Date/Time Associated Diagnosis Comme nts CBC WITH PLATELETS Routine 01/11/2013 8:19 AM Preop general Re sults for this CDT physical exam procedure are in the results section. EKG 12-LEAD Routine 01/11/2013 Preop general Results for th is COMPLETE W/READ - physical exam procedure are in CLINICS the results section. documented in this encounter Results CBC with platelets (01/11/2013 8:19 AM CDT) athologist Signature WBC 6.9 4.0 - 11.0 [place] 10e9/L [facility] RBC Count 4.98 3.8 - 5.2 [place] 10e12/L [facility] Hem[facility] 15.2 11.7 - [facility] 15.[facility] g/dL [facility] Hematocrit 44.2 35.0 - [facility] 47.0 % [facility] MCV 89 78 - 100 [facility] MCH 30.5 26.5 - [place] 33.0 pg [facility] MCHC 34.4 31.5 - [place] 36.5 g/dL [facility] RDW 12.1 10.0 - [place] 15.0 % [facility] Platelet Count 353 150 - 450 [place] 10e9/L [facility] Specimen Anatomical Collection Method Collection Time Receive d Time (Source) Location / / Volume Laterality Blood specimen 01/11/2013 8:19 AM 013 8:21 (specimen) CDT AM CDT Pam Walters MD LAB - BLOOD ORDERABLES Performing Organization Address City/State/ZIP Code Phon e Number [facility] [address] [place] [address] [facility] [address] [place], [place] [address] EKG 12-lead complete w/read - Clinics (01/11/2013) Narrative This result has an attachment that is no t available. Pam Walters MD ECG ORDERABLES documented in this encounter Visit Diagnoses Diagnosis Preop general physical exam - Primary Other specified pre-operative examinatio n Abnormal EKG Nonspecific abnormal electrocardiogram ( ECG) (EKG) documented in this encounter Care Teams Hide And Skin Fleshing Machine Operator Relationship Specialty Start Date End Date Pam Walters MD PCP - General Family Practice 03/12/10 10/10/[address] [id number] documented as of this encounter
--- OUTSIDE RECORDS SUMMARY | 2022-07-27 08:43 | XMS_ITS | Encounter Summary ---
:1960 Author Organization [place] Address [address] [place] [address]. [place] [address] Care Team Providers Name Role Phone Pam Walters MD Primary Care Provider Encounter Details Date Type Department Care Team Description 03/15/2013 Office Visit [facility] Weight Doctor, None, MD [facility] Ed catherine [address], [facility] [address] [place] [address] Social History Tobacco Use Types [...] Time Taken Comments Blood Pressure 125/71 03/15/2013 9:57 AM CDT Pulse 94 03/15/2013 9:57 AM CDT Temperature - - Respiratory Rate 16 03/15/2013 9:57 AM CDT Oxygen Saturation 97% 03/15/2013 9:57 AM CDT Inhaled Oxygen Concentration - - Weight 127.5 kg (281 lb) 03/15/2013 9:57 AM CDT Height 180.3 cm (5' 11) 03/15/2013 9:57 AM CDT Body Mass Index 39.19 03/15/2013 9:57 AM CDT documented in this encounter Progress Notes Liz Mejia, PT - 03/15/2013 11:16 AM CDT Non Surgical Weight Loss Clinic Progress Note #2 Review of the month: Plagued by injury-had left knee scoped and feeling much better. Had 4 visits with chiropractor for SI joint pain and referred to ortho MD for referred pain from hip. MD gave cortisone injection with limited relief, follow up today for possible arthroscopy for labraltear per MRI. Pt with questions about NEAL-discussed traditional approach (Anteriorlateral/posterior)vs Minimally invasive. Verbalized it did not appear her MD thought she was immediately in need of a T DRAKE. Despite pain, still trying to swim 7x/week, cut back to 45 minutes daily Goal is to eventuallly walk or bike once pain ceases. Patient plan/goals for the until next follow up: Follow up in 6 weeks Still motivated to progress time once pain improves Will try walking/biking as able. Standardized Measures: PAVS:315 HPI ROS Physical Exam documented in this encounter Plan of Treatment Not on filedocumented as of this encounter Visit Diagnoses Not on filedocumented in this encounter Care Teams Immunopathologist Relationship Specialty Start Date End Date Pam Walters MD PCP - General Family Practice 03/12/10 10/10/[address] [address] documented as of this encounter
--- OUTSIDE RECORDS SUMMARY | 2022-07-27 08:43 | XMS_ITS | Encounter Summary ---
:1960 Author Organization [place] Address [address] [place] [address] Care Team Providers Name Role Phone Pam Walters MD Primary Care Provider Reason for Visit Reason Comments Weight Problem follow up meds phentermine Encounter Details Date Type Department Care Team Description 03/30/2013 Office Visit [facility] Shelia Cowart Obesity (B WI 30-39.9) (Primary Dx); Weight Management MD [facility] Unspecif[facility] d constipation Clinic [place] [id number] [facility] [address] [place] [address] Social History Tobacco Use Types [...] Sign Reading Time Taken Comments Blood Pressure 130/84 03/30/2013 11:20 AM CDT large Pulse 83 03/30/2013 11:20 AM CDT Temperature 36.6 ??C (97.8 ??F) 03/30/2013 11:20 AM CDT Respiratory Rate 20 03/30/2013 11:20 AM CDT Oxygen Saturation 99% 03/30/2013 11:20 AM CDT Inhaled Oxygen Concentration - - Weight 126.6 kg (279 lb) 03/30/2013 11:20 AM CDT Height 180.3 cm (5' 11) 03/30/2013 11:20 AM CDT Body Mass Index 38.91 03/30/2013 11:20 AM CDT documented in this encounter Progress Notes Shelia Cowart MD - 03/30/2013 11:25 AM CDT Medical Weight Loss - Follow-up Visit CHIEF COMPLAINT: Chief Complaint Patient presents with ??? Weight Problem follow up meds phentermine HISTORY OF PRESENT ILLNESS (HPI): Patient returns today for medical weight loss follow-up visit. Patient was last seen by me on 03/01/2013 and has lost 7pounds. She continues on phentermine. She does note adverse side effects from this medication as follows: Constipation. Has BM every 2 days but small amount. Denies abdominal pain or abdominal fullness. She has added ducolase sodium bid. Also added metamucil. Did not try polyethele glycol yet. She denies adverse side effects, including insomnia or palpitations She desires to continue phentermine. We also discussed recent rash on arms. Seen by Dr. Walters and not thought to be secondary to phentermine. Patient has history of very sensitive skin with frequent rashes. Also has history of sun sensitivity and sees palliative senior np every 12 weeks for all of this. In retrospect, patient states rash was from the sun-had forgotten to wear her protective sleeves while driving. Rash has not reoccured and was never associated with blisters. She continues dietary efforts and exercise program. Patient is seeing dietitian as scheduled Patient is seeing PT. MEDICATIONS: Current Outpatient Prescriptions Medication Sig ??? docusate sodium 100 MG tablet Take 100 mg by mouth daily ??? phentermine (ADIPEX-P) 37.5 MG tablet Take 1 tablet (37.5 mg) by mouth every morning (before breakfast) ??? polyethylene glycol (MIRALAX) powder Take 17 g by mouth daily ??? Minoxidil (ROGAINE EX) Externally apply topically. ??? Dsraylqboeq-Zsrielwzf-Cch C-Mn (GLUCOSAMINE 1500 COMPLEX) CAPS Take by [...] swelling ??? Penicillins PHYSICAL EXAMINATION: VITALS: BP 130/84 Pulse 83 Temp 97.8 ??F (36.6 ??C) (Oral) Resp 20 Ht 5' 11 (1.803 m) Wt 279 lb (126.554 kg) BMI 38.91 kg/m2 SpO2 99% ? No GENERAL: Patient is a 52 year old year old female in no acute distress. Patient is alert and orientated x 4, pleasant and cooperative with exam. CARDIOVASCULAR: Regular rate and rhythm without murmurs, rubs, or gallops. RESPIRATORY: Lungs are clear to auscultation bilaterally, respiratory effort is normal. ASSESSMENT/PLAN: 1. Obesity (BMI 30-39.9) 2. Unspecified constipation PLAN: Continue phentermine . Prescription was given for phentermine. Patient is to return to the clinic in4 Weeks. Patient is to call the clinic if she experiences any adverse reactions. Discontinue metamucil. Start polyethelene glycol 17mg daily. Patient advised to contact me if worsening constipation or if develops abdominal pain. Follow-up with bariatric dietitian every 6-8 weeks or as directed by dietitian Follow-up with bariatric physical therapist prn. This was a 25 minute visit with greater than 50% spent on counseling regarding bowel program and answering patiient's questions. ORDERS PLACED IN TODAY'S VISIT: Orders Placed This Encounter Procedures ??? FALL RISK ASSESSMENT documented in this encounter Nursing Notes 03/30/2013 11:20 AM CDT >> ELVER JUNG Fri Mar 30, 2013 11:26 AM Patient presents with: Weight Problem - follow up meds phentermine Initial BP 130/84 Pulse 83 Temp 97.8 ??F (36.6 ??C) (Oral) Resp 20 Ht 5' 11 (1.803 m) Wt 279 lb (126.554 kg) BMI 38.91 kg/m2 SpO2 99% ? No Estimated Body mass index is 38.91 kg/(m^2) as calculated from the following: Height as of this encounter: 5' 11(1.803 m). Weight as of this encounter: 279 lb(126.554 kg). BP completed using cuff size: large PAVS 360 Elver Jung LPN documented in this encounter Plan of Treatment Not on filedocumented as of this encounter Visit Diagnoses Diagnosis Obesity (BMI 30-39.9) - Primary Obesity, unspecified Unspecified constipation documented in this encounter Care Teams Burr Grinder Relationship Specialty Start Date End Date Pam Walters MD PCP - General Family Practice 03/12/10 10/10/[address] [id number] documented as of this encounter
--- OUTSIDE RECORDS SUMMARY | 2022-07-27 08:43 | XMS_ITS | Encounter Summary ---
:1960 Author Organization [facility] Address [address] [place] [address] Care Team Providers Name Role Phone Pam Waltres MD Primary Care Provider Reason for Visit Reason Comments Weight Problem Encounter Details Date Type Department Care Team Description 03/01/2013 Office Visit [facility] Shelia Cowart Morbid vitore cassi (H) (Primary Dx); Weight Management MD [facility] [address] [place] [address] Social History Tobacco Use Types [...] Sign Reading Time Taken Comments Blood Pressure 122/72 03/01/2013 11:14 AM CDT right th igh Pulse 90 03/01/2013 11:14 AM CDT Temperature 36.4 ??C (97.6 ??F) 03/01/2013 11:14 AM CDT Respiratory Rate 20 03/01/2013 11:14 AM CDT Oxygen Saturation 100% 03/01/2013 11:14 AM CDT Inhaled Oxygen Concentration - - Weight 129.7 kg (286 lb) 03/01/2013 11:14 AM CDT Height 180.3 cm (5' 11) 03/01/2013 11:14 AM CDT Body Mass Index 39.89 03/01/2013 11:14 AM CDT documented in this encounter Progress Notes Shelia Cowart MD - 03/01/2013 11:17 AM CDT Medical Weight Loss - Follow-up Visit CHIEF COMPLAINT: Chief Complaint Patient presents with ??? Weight Problem HISTORY OF PRESENT ILLNESS (HPI): Patient returns today for medical weight loss follow-up visit. Patient was last seen by me on 01/30/2013 and has lost 13 pounds. She continues on phentermine. She does note adverse side effects from this medication as follows: Mild constipation. Constipation has improved with increased fiber in diet. This/these side effect has now resolved. She denies adverse side effects, including insomnia or palpitations She desires to continue phentermine. She continues dietary efforts and exercise program. Recent knee surgery. Now had left hip injection 2 weeks ago (surgery to left hip had been discussed). Despite this, is exercising 5 times a week for 30 minutes, [id number] Patient is not seeing dietitian today Patient is not seeing PT. Answered patient's questions about goal weight. Discussed realistic weight of 198 to 215. MEDICATIONS: Current Outpatient Prescriptions Medication Sig ??? phentermine (ADIPEX-P) 37.5 MG tablet Take 1 tablet by mouth every morning (before breakfast). ??? Minoxidil (ROGAINE EX) Externally apply topically. ??? Cgzitvudyhw-Bnhekfgtt-Ami C-Mn (GLUCOSAMINE 1500 COMPLEX) CAPS Take by [...] swelling ??? Penicillins PHYSICAL EXAMINATION: VITALS: BP 122/72 Pulse 90 Temp 97.6 ??F (36.4 ??C) (Oral) Resp 20 Ht 5' 11 (1.803 m) Wt 286 lb (129.729 kg) BMI 39.89 kg/m2 SpO2 100% ? No GENERAL: Patient is a 52 year old year old female in no acute distress. Patient is alert and orientated x 4, pleasant and cooperative with exam. CARDIOVASCULAR: Regular rate and rhythm without murmurs, rubs, or gallops. RESPIRATORY: Lungs are clear to auscultation bilaterally, respiratory effort is normal. ASSESSMENT/PLAN: 1. Morbid obesity 2. Unspecified constipation PLAN: Continue phentermine 37,5 mg per day. Prescription was given for phentermine. Patient is to return to the clinic in 4 Weeks. Patient is to call the clinic if she experiences any adverse reactions. Discussed addition of dulcosate sodium 100mg po bid as needed or Miralax 17mg daily as needed. Will discuss use of glucophage at next visit for pre-diabetes and weight loss. Follow-up with bariatric dietitian. Follow-up with bariatric physical therapist. ORDERS PLACED IN TODAY'S VISIT: No orders of the defined types were placed in this encounter. documented in this encounter Nursing Notes 03/01/2013 11:10 AM CDT >> Yessenia Ji Jes Mar 01, 2013 11:20 AM Patient presents with: Weight Problem Initial BP 122/72 Pulse 90 Temp 97.6 ??F (36.4 ??C) (Oral) Resp 20 Ht 5' 11 (1.803 m) Wt 286 lb (129.729 kg) BMI 39.89 kg/m2 SpO2 100% ? No Estimated Body mass index is 39.89 kg/(m^2) as calculated from the following: Height as of this encounter: 5' 11(1.803 m). Weight as of this encounter: 286 lb(129.729 kg). BP completed using cuff size: X-large Yessenia Ji ma documented in this encounter Plan of Treatment Not on filedocumented as of this encounter Visit Diagnoses Diagnosis Morbid obesity (H) - Primary Morbid obesity Unspecified constipation documented in this encounter Care Teams Electric Range Servicer Relationship Specialty Start Date End Date Pam Walters MD PCP - General Family Practice 03/12/10 10/10/[address] [id number] documented as of this encounter
--- OUTSIDE RECORDS SUMMARY | 2022-07-27 08:43 | XMS_ITS | Encounter Summary ---
:1960 Author Organization [facility] Address [address] [place] [address] Care Team Providers Name Role Phone Pam Walters MD Primary Care Provider Reason for Visit Reason Comments Derm Problem Encounter Details Date Type Department Care Team Description 03/16/2013 Office Visit [facility] Pam Walters MD Rash (Primary Dx); Clinic [facility] Weight loss, intentional; [address] [facility] Other screening mammogram [address] [address] [place] [address] Social History Tobacco Use Types [...] Sign Reading Time Taken Comments Blood Pressure 128/79 03/16/2013 3:33 PM CDT Pulse 97 03/16/2013 3:33 PM CDT Temperature 36.8 ??C (98.3 ??F) 03/16/2013 3:33 PM CDT Respiratory Rate - - Oxygen Saturation 96% 03/16/2013 3:33 PM CDT Inhaled Oxygen Concentration - - Weight 128.4 kg (283 lb) 03/16/2013 3:33 PM CDT Height 180.3 cm (5' 11) 03/16/2013 3:33 PM CDT Body Mass Index 39.47 03/16/2013 3:33 PM CDT documented in this encounter Patient Instructions Patient InstructionsWPam pichardo MD - 03/16/2013 3:47 PM CDT We discussed your rash likely sun exposure related We discussed lupus possible cause Use claritin or zyrtec daily Ok to use benadryl as needed Use topical calamine lotion if needed If still issues or with anything new, let me know Thanks Pam Walters MD documented in this encounter Progress Notes Pam Walters MD - 03/16/2013 3:28 PM CDT SUBJECTIVE: Annalisa Jacob is a 52 year old female who presents to clinic today for the following health issues: Rash ?? Duration: 5 days ?? Description Location: both arms Itching: mild ?? Intensity: moderate ?? Accompanying signs and symptoms: None ?? History (similar episodes/previous evaluation): None ?? Precipitating or alleviating factors: New exposures: medication Phentremine Recent travel: no ?? Therapies tried and outcome: Benadryl/diphenhydramine - effective and Claritin/loratadine - effective Using phentermine since 11/2012 Rash Started on Tuesday, pt thinks not related to phentermine Not used long sleeve top while driving More prominent on right upper arm where direct sun exposure Seen derm on Tuesday-no rash present at the time Might be slight itching Using claritin daily and using benadryl as needed No fevers, no chills No bites of any kind No other systemic issues No prior hx of lupus or any other autoimmune dis Problem list and histories reviewed & adjusted, as indicated. Additional history: as documented PROBLEMS TO ADD ON... ROS: ROS otherwise negative OBJECTIVE: BP 128/79 Pulse 97 Temp 98.3 ??F (36.8 ??C) (Oral) Ht 5' 11 (1.803 m) Wt 283 lb (128.368 kg) BMI 39.47 kg/m2 SpO2 96% ? No Body mass index is 39.47 kg/(m^2). GENERAL: healthy, alert, well nourished, well hydrated, no distress SKIN: positive for mild erythema diffusely on anterior neck and also on emanuel upper ext, prominent on right upper ext at exposed portions of skin Rest of the exam deferred Diagnostic test results: none ASSESSMENT/PLAN: 782.1 Rash (primary encounter diagnosis) Comment: ?sun related vs other etio Plan: usage of lupus testing and other autoimmune dis reviewed Pt chose not to do this Since done in past and neg Advised keep area cool and dry Watch for infection/blisters Advised to treat sun related issues to start with Ok to use aloe vera prn Avoid sun exposure If still issues, see derm, pt has established derm provider Will call and make an appointment if indicated [id number] Weight loss, intentional Comment: Plan: in congratuated pt and encouraged to work on this V76.12 Other screening mammogram Comment: Plan: MA Screening Digital Bilateral, MA Screening Digital Bilateral See Patient Instructions Pam Walters MD, MD [facility] Patient Instructions We discussed your rash likely sun exposure related We discussed lupus possible cause Use claritin or zyrtec daily Ok to use benadryl as needed Use topical calamine lotion if needed If still issues or with anything new, let me know Thanks Pam Walters MD documented in this encounter Nursing Notes 03/16/2013 3:20 PM CDT >> DANDRE KHAN [facility] Mar 16, 2013 3:36 PM Patient presents with: Derm Problem Initial BP 128/79 Pulse 97 Temp 98.3 ??F (36.8 ??C) (Oral) Ht 5' 11 (1.803 m) Wt 283 lb (128.368 kg) BMI 39.47 kg/m2 SpO2 96% ? No Estimated Body mass index is 39.47 kg/(m^2) as calculated from the following: Height as of this encounter: 5' 11(1.803 m). Weight as of this encounter: 283 lb(128.368 kg). BP completed using cuff size: large Health maintenance- up to date Dandre Khan CMA documented in this encounter Plan of Treatment Not on filedocumented as of this encounter Procedures Procedure Name Priority Date/Time Associated Diagnosis Comme nts MA SCREENING Routine 03/22/2013 8:32 AM Other screening Result s for this DIGITAL BILATERAL CDT mammogram procedure are in the results section. documented in this encounter Results MA Screening Digital Bilateral (03/22/2013 8:32 AM CDT) Anatomical Region Laterality Modality Breast Bilateral Other Specimen (Source) Anatomical Collection Method Collection Time Re ceived Time Location / / Volume Laterality 03/22/2013 8:32 AM CDT Impressions 03/22/2013 11:19 AM CDT IMPRESSION: BI-RADS 1, NEGATIVE RECOMMENDATION: Annual screening mammogr aphy. KEN NIEVES MD Narrative 03/22/2013 11:19 AM CDT SCREENING MAMMOGRAM, BILATERAL, DIGITAL w/CAD - 03/22/2013 8:32 AM BREAST SYMPTOMS: No current breast compl aints. COMPARISON: ??02/07/2012, 02/04/2011 PARENCHYMAL PATTERN: Minimal fibroglandu lar densities. COMMENTS: No findings of suspicion for m alignancy. Procedure Note Ken Nieves MD - 03/22/2013For matting of this note might be different from the original. SCREENING MAMMOGRAM, BILATERAL, DIGITAL w/CAD - 03/22/2013 8:32 AM BREAST SYMPTOMS: No current breast compl aints. COMPARISON: 02/07/2012, 02/04/2011 PARENCHYMAL PATTERN: Minimal fibroglandu lar densities. COMMENTS: No findings of suspicion for m alignancy. IMPRESSION IMPRESSION: BI-RADS 1, NEGATIVE RECOMMENDATION: Annual screening mammogr aphy. KEN NIEVES MD Pam Walters MD IMG MAMMOGRAPHY ORDERABLES documented in this encounter Visit Diagnoses Diagnosis Rash - Primary Rash and other nonspecific skin eruption Weight loss, intentional Dietary surveillance and counseling Other screening mammogram documented in this encounter Care Teams Social Media Job Titles Relationship Specialty Start Date End Date Pam Walters MD PCP - General Family Practice 03/12/10 10/10/[address] [id number] documented as of this encounter
--- OUTSIDE RECORDS SUMMARY | 2022-07-27 08:43 | XMS_ITS | Encounter Summary ---
:1960 Author Organization [facility] Address [address] [place] [address] Care Team Providers Name Role Phone Pam Walters MD Primary Care Provider Encounter Details Date Type Department Care Team Description 03/15/[address] [facility] Doctor, Tomás, ERRONE OUS Weight Management 2, Sh Wl Diet, RD ENCOUNTER--DISREGARD Clinic [facility] (Primary Dx) [address] [facility] [address] [place] [address] Social History Tobacco Use Types [...] - Weight 127.5 kg (281 lb) 03/15/2013 9:56 AM CDT Height 180.3 cm (5' 11) 03/15/2013 9:56 AM CDT Body Mass Index 39.19 03/15/2013 9:56 AM CDT documented in this encounter Progress Notes Obed Springer - 03/15/2013 10:40 AM CDT Pt was late for appt and can't see diet. Pt reschedule appt for a different day. documented in this encounter Plan of Treatment Not on filedocumented as of this encounter Visit Diagnoses Diagnosis ERRONEOUS ENCOUNTER--DISREGARD - Primary documented in this encounter Care Teams Security Operations Manager Relationship Specialty Start Date End Date Pam Walters MD PCP - General Family Practice 03/12/10 10/10/[address] [address] documented as of this encounter
--- OUTSIDE RECORDS SUMMARY | 2022-07-27 08:43 | XMS_ITS | Encounter Summary ---
:1960 Author Organization [facility] Address [address] [place] [address] Care Team Providers Name Role Phone Pam Walters MD Primary Care Provider Encounter Details Date Type Department Care Team Description 03/16/2013 Orders Only [facility] [place], Left hip p ain (Primary [facility] JR Renae Dx) [address] [place] [address] Social History Tobacco Use Types Packs/Day Years [...] thigh documented in this encounter Care Teams District Sales Manager Relationship Specialty Start Date End Date Pam Walters MD PCP - General Family Practice 03/12/10 10/10/[address] [id number] documented as of this encounter
--- OUTSIDE RECORDS SUMMARY | 2022-07-27 08:43 | XMS_ITS | Encounter Summary ---
:1960 Author Organization [facility] Address [address] [place] [address] Care Team Providers Name Role Phone Pam Walters MD Primary Care Provider Encounter Details Date Type Department Care Team Description 01/30/2013 Orders Only [facility] Sarai Nguyen, Left h ip pain (Primary [facility] RN Dx) [address] [place] [address] Social History Tobacco Use Types Packs/Day Years [...] thigh documented in this encounter Care Teams Chief Meteorologist Relationship Specialty Start Date End Date Pam Walters MD PCP - General Family Practice 03/12/10 10/10/[address] [id number] documented as of this encounter
--- OUTSIDE RECORDS SUMMARY | 2022-07-27 08:44 | XMS_ITS | Encounter Summary ---
:1960 Author Organization [place] Address [address] [place] [address] Care Team Providers Name Role Phone Pam Walters MD Primary Care Provider Encounter Details Date Type Department Care Team Description 06/07/2012 Therapy Visit [place] for Yordan Ibanez P T Sacroiliac [facility] Athletic Medicine - [address] [address] (Pr imary Dx) [place] [facility] [address] [facility] [address] [address] [place], [place] (Work) [address] [phone] Social History Tobacco Use Types Packs/Day Years Used Date Smoking Tobacco: Former Cigarettes 1 20 Smokeless Tobacco: Never Comments: 07/2008 Alcohol Use Standard Drinks/Week Comments Yes 0 (1 standard drink = 0.6 oz pure alcoho l) very little Sex Assigned at Date Recorded Not on file documented as of this encounter Progress Notes Yordan Ibanez, PT - 06/07/2012 3:24 PM CDT Subjective: HPI Objective: System Physical Exam General ROS Assessment/Plan: SUBJECTIVE Subjective changes as noted by pt: Pt notes decreased pain. Current pain level: 1/10 Changes in function: Pt notes increased ease with walking and swimming. Pt still notes difficulty with aqua jogging. Adverse reaction to treatment or activity: None OBJECTIVE Changes in objective findings: Pelvic base even, no need for MET. Improved pelvic stability ASSESSMENT Annalisa continues to require intervention to meet STG and LTG's: PT Patient's symptoms are resolving. Response to therapy has shown an improvement in pain level, flexibility and strength Progress made towards STG/LTG? Yes, PLAN Current treatment program is being advanced to more complex exercises. VIDEO MANAGER/ATC plan: N/A Please refer to the daily flowsheet for treatment today, total treatment time and time spent performing 1:1 timed codes. documented in this encounter Plan of Treatment Not on filedocumented as of this encounter Procedures Procedure Name Priority Date/Time Associated Diagnosis Comme nts ZZC THERAPEUTIC Routine 06/07/2012 3:53 PM CDT Sacroiliac stra in ACTIVITIES ZZC ELECTRIC STIMULATION Routine 06/07/2012 3:53 PM CDT Sacroi liac strain THERAPY ZZC HOT OR COLD PACKS Routine 06/07/2012 3:53 PM CDT Sacroilia c strain THERAPY ZZC THERAPEUTIC Routine 06/07/2012 3:53 PM CDT Sacroiliac stra in EXERCISES documented in this encounter Visit Diagnoses Diagnosis Sacroiliac strain - Primary Sprain of unspecified site of sacroiliac region documented in this encounter Care Teams Manager Pool Relationship Specialty Start Date End Date Pam Walters MD PCP - General Family Practice 03/12/10 10/10/[address] [address] documented as of this encounter
--- OUTSIDE RECORDS SUMMARY | 2022-07-27 08:44 | XMS_ITS | Encounter Summary ---
:1960 Author Organization [place] Address [address] [place] [address] Care Team Providers Name Role Phone Pam Walters MD Primary Care Provider Reason for Visit Reason Onset Date Comments Referral 12/26/2012 [facility] Encounter Details Date Type Department Care Team Description 12/26/2012 Telephone [facility] Pam Walters MD Referral ([facility] [address] [place] [address] ctr) [address] [address] [place] [address] (Wo rk) Social History Tobacco Use Types Packs/Day Years Used Date Smoking Tobacco: Former Cigarettes 1 20 Smokeless Tobacco: Never Comments: 07/2008 Alcohol Use Standard Drinks/Week Comments Yes 0 (1 standard drink = 0.6 oz pure alcoho l) very little Sex Assigned at Date Recorded Not on file documented as of this encounter Miscellaneous Notes Telephone Encounter - Dotty Jacobo - 12/28/2012 10:16 AM CDT I talked with Annalisa and because it is the same knee that her replacement was done, she feels it is necessary to see the same Ortho and is not willing to change. I explained to her about her ins and the need to stay in-network. I will make this referral but she knows we might not be able to do anymorein the future and [facility] could deny this referral. The referral was made for 3 visits until . (Dotty in referrals) Telephone Encounter - Pam Walters MD - 12/26/2012 3:56 PM CDT Please contact pt and let her know I strongly recommend seeing in network providers and can help to see one if she wishes If she is not willing to do this , then Ok to do what she wants Thanks Pam Walters MD Telephone Encounter - Dotty Jacobo - 12/26/2012 2:27 PM CDT Annalisa called to get a [facility] referral to Dr Wayne Haywood from [facility] in [place]. ([phone]). She had a knee replacement done by her in 2009 and now she is having problems withthat knee and it was recommended that she have that knee scoped, the implant used causes scar tissuethat needs to removed. This would be done at the [facility], another out of net-work referral requested. Her insurance requires her to stay within the A network so she would need an out of network referral in order to get coverage. Dr Walters, do you want to give her this referral or redirect her to and in-network orthopedic. (Dotty in referrals) documented in this encounter Plan of Treatment Not on filedocumented as of this encounter Visit Diagnoses Not on filedocumented in this encounter Care Teams Digital Marketing Intern Relationship Specialty Start Date End Date Pam Walters MD PCP - General Family Practice 03/12/10 10/10/[address] [address] documented as of this encounter
--- OUTSIDE RECORDS SUMMARY | 2022-07-27 08:44 | XMS_ITS | Encounter Summary ---
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 [address] [place] [phone] Social History Tobacco Use Types Packs/Day Years [...] Associated Diagnosis Comme nts [facility] THERAPEUTIC Routine 06/14/2012 10:17 AM Sacroiliac strain ACTIVITIES CDT [facility] THERAPEUTIC EXERCISES Routine 06/14/2012 10:17 AM Sacroili ac strain CDT [facility] NEUROMUSCULAR Routine 06/14/2012 10:17 AM Sacroiliac strai n RE-EDUCATION CDT documented in this encounter Visit Diagnoses Diagnosis Sacroiliac strain - Primary Sprain of unspecified site of sacroiliac region documented in this encounter Care Teams Mason Apprentice Relationship Specialty Start Date End Date Pam Walters MD PCP - General Family Practice 03/12/10 10/10/[address] [address] documented as of this encounter
--- OUTSIDE RECORDS SUMMARY | 2022-07-27 08:44 | XMS_ITS | Encounter Summary ---
:1960 Author Organization [place] Address [address] [place] [address]. [place] [address] Care Team Providers Name Role Phone Pam Walters MD Primary Care Provider Encounter Details Date Type Department Care Team Description 01/04/2013 Office Visit [facility] Weight Doctor, None, MD Management [facility] Ed catherine 2, Sh Physical Therapy [address] [facility] [address] [facility] [address] [place] [address] Social History Tobacco Use Types [...] Sign Reading Time Taken Comments Blood Pressure 128/74 01/04/2013 8:55 AM CDT Pulse 91 01/04/2013 8:55 AM CDT Temperature - - Respiratory Rate 20 01/04/2013 8:55 AM CDT Oxygen Saturation 98% 01/04/2013 8:55 AM CDT Inhaled Oxygen Concentration - - Weight 135.2 kg (298 lb) 01/04/2013 8:55 AM CDT Height 180.3 cm (5' 11) 01/04/2013 8:55 AM CDT Body Mass Index 41.56 01/04/2013 8:55 AM CDT documented in this encounter Progress Notes Liz Mejia, PT - 01/04/2013 9:00 AM CDT PHYSICAL THERAPY EVALUATION Why now? Wanted to start last summer but unable due to SI pain, feeling very immobile now. 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 Having right knee scope in two weeks, history of right TKA 2009. Exercise History Type: Loved to walk, can't due to orthopedic pain. Currently swimming at 5am, lap swimming via backstroke. (Been doing this for 4 years) Duration: 50-60 Minutes, 90 minutes on weekends, tries for 7 days/week Equipment Owned: recumbant and upright bike Current Community Services Used/Gym Memberships: [employer] in [place] Level of Motivation: 05/24 Exercise Buddies: doesn't want to rely on other people Learning Barriers/Educational Needs: Stages of change: (precontemplateion, contemplation, preparation, action, maintanence, termination) Barriers to Exercise? Orthopedic, upcoming surgery [place] Heart Rate Standardized Assessments PAVS: (Physical Activity Vital Signs in minutes/week): 420 documented in this encounter Plan of Treatment Not on filedocumented as of this encounter Visit Diagnoses Not on filedocumented in this encounter Care Teams Fine Dining Server Relationship Specialty Start Date End Date Pam Walters MD PCP - General Family Practice 03/12/10 10/10/[address] [id number] documented as of this encounter
--- OUTSIDE RECORDS SUMMARY | 2022-07-27 08:44 | XMS_ITS | Encounter Summary ---
:1960 Author Organization [place] Address [address] [place] [address] Care Team Providers Name Role Phone Pam Walters MD Primary Care Provider Reason for Visit Reason Onset Date Comments Back Pain 12/08/2012 Encounter Details Date Type Department Care Team Description 12/08/2012 Telephone [facility] Cameron Roth, Back Pain Care-[facility] Med [address] [place] [address] [facility] [phone] [place] [address] (Wo rk) Social History Tobacco Use Types Packs/Day Years Used Date Smoking Tobacco: Former Cigarettes 1 20 Smokeless Tobacco: Never Comments: 07/2008 Alcohol Use Standard Drinks/Week Comments Yes 0 (1 standard drink = 0.6 oz pure alcoho l) very little Sex Assigned at Date Recorded Not on file documented as of this encounter Miscellaneous Notes Telephone Encounter - Arpita Pleitez RN - 12/08/2012 3:46 PM CDT Call placed to pt. Informing her Dr. Roth will return to clinic 12/11/12 to advise injection. Arpita Pleitez RN Telephone Encounter - Arpita Pleitez RN - 12/08/2012 1:28 PM CDT Pt. LVM stating she received a left SI injection 10/04/12. Pt. States she feels that the injection iswearing off and would like to know if she can receive another injection at this time. Please advise. Arpita Pleitez RN documented in this encounter Plan of Treatment Not on filedocumented as of this encounter Visit Diagnoses Diagnosis SI (sacroiliac) joint dysfunction - Prim kali Disorders of sacrum documented in this encounter Care Teams Levelman Relationship Specialty Start Date End Date Pam Walters MD PCP - General Family Practice 03/12/10 10/10/[address] [address] documented as of this encounter
--- OUTSIDE RECORDS SUMMARY | 2022-07-27 08:44 | XMS_ITS | Encounter Summary ---
:1960 Author Organization [place] Address [address] [facility] [place] [address] Care Team Providers Name Role Phone Pam Walters MD Primary Care Provider Reason for Visit Reason Onset Date Comments Medication Question 12/28/2012 Encounter Details Date Type Department Care Team Description 12/28/[address] [facility] Weight Shelia Cowart, Medication Question Management Clinic Ed catherine [address] [place] [address] Social History Tobacco Use Types Packs/Day Years Used Date Smoking Tobacco: Former Cigarettes 1 20 Smokeless Tobacco: Never Comments: 07/2008 Alcohol Use Standard Drinks/Week Comments Yes 0 (1 standard drink = 0.6 oz pure alcoho l) very little Sex Assigned at Date Recorded Not on file documented as of this encounter Miscellaneous Notes Telephone Encounter - Obed Springer - 12/28/2012 1:42 PM CDT Called pt and notified pt of message below. Pt agreed to plan and will keep appt. Telephone Encounter - Shelia Cowart MD - 12/28/2012 1:27 PM CDT Please call patient and advise her to taper off phentermine 2 weeks prior to surgery by reducing dose to 1/2 tab q day for 3 days and then stop phentermine. Advise patient to stay off after surgery until fully taking food and fluids. Keep follow-up appointment. Telephone Encounter - Obed Springer - 12/28/2012 8:44 AM CDT Pt called wondering if pt should stop Phentermine prior to surgery on January 17 or should she continue Phentermine. Pt has appt schedule with RM on 01/18/13, but reschedule appt to 01/30/13@ 12:10pm. Please advise. documented in this encounter Plan of Treatment Not on filedocumented as of this encounter Visit Diagnoses Not on filedocumented in this encounter Care Teams Vending Service Technician Relationship Specialty Start Date End Date Pam Walters MD PCP - General Family Practice 03/12/10 10/10/[address] [address] documented as of this encounter
--- OUTSIDE RECORDS SUMMARY | 2022-07-27 08:44 | XMS_ITS | Encounter Summary ---
:1960 Author Organization [place] Address [address] [place] [address] Care Team Providers Name Role Phone Pam Walters MD Primary Care Provider Reason for Visit (Routine) - Closed Specialty Diagnoses / Procedures Referred By Contact Refer red To Contact Radiology Diagnoses SI INJECTION Procedure Notes: Disorder of sacrum. Left SI joint steroid injection. R h Xray Procedures [address]IOLOGY [address] [place] [address] Phone: Fax: Referral ID Status Reason Start Date Expiration Date Visits Requ ested Visits Authorized [id number] Closed 09/27/2012 09/27/2013 1 1 Encounter Details Date Type Department Care Team Description 10/04/2012 Hospital Encounter [facility] Liliana Roth MD [address] [facility] [place], [place] [address] [facility] [address] [address] [phone] [place] [address] (Wo rk) Social History Tobacco [...] Sign Reading Time Taken Comments Blood Pressure 129/77 10/04/2012 10:03 AM LOADING DOCK HAND Pulse 83 10/04/2012 10:03 AM LOADING DOCK HAND Temperature - - Respiratory Rate 20 10/04/2012 10:03 AM LOADING DOCK HAND Oxygen Saturation - - Inhaled Oxygen Concentration - - Weight - - Height - - Body Mass Index - - documented in this encounter Discharge Instructions Discharge InstructionsOc English RN - 10/04/2012 10:39 AM CST Written and verbal instructions given and pt verbalized understanding. ING DOCK HAND documented in this encounter Medications at Time [...] capsule taking 3000 mg total per day Lxvyjrbkqkm-Stdljligo-Vpu Take by mouth. 0 2011 C-Mn (GLUCOSAMINE 1500 COMPLEX) CAPS ibuprofen (ADVIL,MOTRIN) Take 1 tablet by 100 tablet 0 03/09 800 MG tabletIndications: mouth every 8 hours Neck pain as needed for pain. Minoxidil (ROGAINE EX) Externally apply 0 topically. MULTI-VITAMIN OR TABS ONE TABLET DAILY 3 12/18/19 10 cetirizine (ZYRTEC) 10 MG Take 1 tablet by 0 10/1403/16/2013 tablet mouth every evening. documented as of this encounter Progress Notes Deena Kamara MD - 10/04/2012 2:03 PM CST RADIOLOGY PROCEDURE NOTE Patient name: Annalisa Jacob : 1960 Pre-procedure diagnosis: L SI joint pain Post-procedure diagnosis: Same Procedure Date/Time: October 04, 2012 2:03 PM Procedure: L SI jnt. injection Estimated blood loss: None Specimen(s) collected with description: none The patient tolerated the procedure well with no immediate complications. See imaging dictation for procedural details and findings. Provider name: DEENA KAMARA [employer] Person(s):None ING DOCK HAND documented in this encounter Plan of Treatment Not on filedocumented as of this encounter Visit Diagnoses Not on filedocumented in this encounter Administered Medications Inactive Administered Medications - up to 3 most recent administrations Medication Order MAR Action Action Date Dose Rate Site iopamidol (EMMCLI-I-351) Given by Other 10/04/2012 10:42 AM 0.5 mLs 41% solution 1 mL Clinician LOADING DOCK HAND 1 mL, INTRA-ARTICULAR, ONCE, On Tue10/04/12 at 1045, For 1 dose Lidocaine 1% injection 1 mL Given by Other Clinician 10/04/2012 10:42 AM LOADING DOCK HAND 1 mL 1 mL, Other, ONCE, On Tue10/04/12 at 1045, For 1 dose Lidocaine 1% injection 4 mL Given by Other 10/04/2012 10:42 AM LOADING DOCK HAND 3 mLs 4 mL, Subcutaneous, ONCE, On Clinician Tue10/04/12 at 1045, For 1 dose triamcinolone acetonide (KENALOG-40) 40 MG/ML injection Starting on Tue10/04/12 at 1012, For 1 dose, Liliana NGUYEN: cabinet override triamcinolone acetonide Given by Other 10/04/2012 10:41 AM LOADING DOCK HAND 40 mg (KENALOG-40) injection 40 mg Clinician 40 mg, INTRA-ARTICULAR, ONCE, On Tue10/04/12 at 1045, For 1 dose documented in this encounter Care Teams Direct Marketing Manager Relationship Specialty Start Date End Date Pam Walters MD PCP - General Family Practice 03/12/10 10/10/[address] [address] documented as of this encounter
--- OUTSIDE RECORDS SUMMARY | 2022-07-27 08:44 | XMS_ITS | Encounter Summary ---
:1960 Author Organization [place] Address [address] [place] [address] Care Team Providers Name Role Phone Pam Walters MD Primary Care Provider Encounter Details Date Type Department Care Team Description 12/29/2012 Therapy Visit [facility] and Jean Claude Barrera (Primary Dx); [facility] TRINA Villagran DC Left hip pain [facility] [address] [place] [address] [address] [place] [address] Social History Tobacco Use Types Packs/Day Years Used Date Smoking Tobacco: Former Cigarettes 1 20 Smokeless Tobacco: Never Comments: 07/2008 Alcohol Use Standard Drinks/Week Comments Yes 0 (1 standard drink = 0.6 oz pure alcoho l) very little Sex Assigned at Date Recorded Not on file documented as of this encounter Patient Instructions Patient InstructionsJean Claude Barrera DC - 12/29/2012 2:26 PM CDT RTC in 2 weeks documented in this encounter Progress Notes Jean Claude Barrera DC - 12/29/2012 2:23 PM CDT VISIT SUBJECTIVE: Found out she requires surgery on the right knee as there is scar tissue interfering with her knee motion the doctor feels this may be why her back and hip hurt on the left side. Treatment helps here but his short lived. This fits with the theory provided by her ortho provider. Scheduled for surgery January 17. OBJECTIVE: Hypomotion of the left hip present. ASSESSMENT: Short term relief. PLAN: Extra-Spinal Chiropractic Manipulative Therapy: LAD to the left hip x2 with cavitation Recommend 3 additional visits every 2 weeks. documented in this encounter Plan of Treatment Not on filedocumented as of this encounter Procedures Procedure Name Priority Date/Time Associated Diagnosis Comme [facility] CHIROPRAC Routine 12/29/2012 2:25 PM CDT Lumbago MANIP,EXTRASPINAL,1+ Left hip pain REGNS documented in this encounter Visit Diagnoses Diagnosis Lumbago - Primary Left hip pain Pain in joint, pelvic region and thigh documented in this encounter Care Teams Hand Nailer Relationship Specialty Start Date End Date Pam Walters MD PCP - General Family Practice 03/12/10 10/10/[address] [address] documented as of this encounter
--- OUTSIDE RECORDS SUMMARY | 2022-07-27 08:44 | XMS_ITS | Encounter Summary ---
:1960 Author Organization [facility] Address [address] [place] [address] Care Team Providers Name Role Phone Pam Walters MD Primary Care Provider Encounter Details Date Type Department Care Team Description 12/07/2012 Orders Only [facility] Scr eening for other and unspecified endocrine, nutritional, metabolic, and immunity disorders (Primary Dx); [facility] Abnormal weight gain; [address] [facility] Morbid obesity (H) [place] [address] Social History Tobacco Use Types Packs/Day Years [...] Procedure Name Priority Date/Time Associated Comments Diagnosis CORTISOL Timed 12/07/2012 7:56 Morbid obesity Results fo r AM CDT (H) this procedure Abnormal weight are in the gain results Screening for section. other and unspecified endocrine, nutritional, metabolic, and immunity disorders INSULIN LEVEL Routine 12/07/2012 7:55 Abnormal weight Results for AM CDT gain this procedure Morbid obesity are in the (H) results section. TSH Routine 12/07/2012 7:55 Abnormal weight Results f or AM CDT gain this procedure Morbid obesity are in the (H) results section. TESTOSTERONE FREE AND TOTAL Routine 12/07/2012 7:55 Abnormal w eight Results for AM CDT gain this procedure Morbid obesity are in the (H) results Screening for section. other and unspecified endocrine, nutritional, metabolic, and immunity disorders LIPID PROFILE Routine 12/07/2012 7:55 Screening for Results fo r AM CDT other and this procedure unspecified are in the endocrine, results nutritional, section. metabolic, and immunity disorders Morbid obesity (H) HEMOGLOBIN A1C Routine 12/07/2012 7:55 Abnormal weight Results for AM CDT gain this procedure Morbid obesity are in the (H) results section. DHEA SULFATE Routine 12/07/2012 7:55 Abnormal weight Results f or AM CDT gain this procedure Morbid obesity are in the (H) results Screening for section. other and unspecified endocrine, nutritional, metabolic, and immunity disorders DEHYDROEPIANDROSTERONE Routine 12/07/2012 7:55 Screening for R esults for AM CDT other and this procedure unspecified are in the endocrine, results nutritional, section. metabolic, and immunity disorders Abnormal weight gain Morbid obesity (H) COMPREHENSIVE METABOLIC PANEL Routine 12/07/2012 7:55 Screenin g for Results for AM CDT other and this procedure unspecified are in the endocrine, results nutritional, section. metabolic, and immunity disorders Abnormal weight gain Morbid obesity (H) documented in this encounter Results Cortisol (12/07/2012 7:56 AM CDT) athologist Signature Cortisol Serum 7.3 4 - 22 [facility] ug/dL [facility] Comment: 8 AM Cortisol Reference Range = 4-22 ug/ dL 4 PM Cortisol Reference Range = 3-17 ug /dL Specimen Anatomical Collection Method Collection Time Receive d Time (Source) Location / / Volume Laterality Blood specimen 12/07/2012 7:56 AM 013 7:57 (specimen) CDT AM CDT Shelia Cowart MD LAB - BLOOD ORDERABLES Performing Organization Address City/State/ZIP Code Phon e Number [facility] [address] [place], [place] [phone] [place] [address] LABS (ABNORMAL) Dehydroepiandrosterone (12/07/2012 7:55 AM CDT) Component Value Ref Test Analysis Performed At [facility] gist Range Method Time Signature Dehydroepiandrosterone 5.140 [facility] Comment: Reference range: 0.630 to 4.700 Unit: ng/mL (Note) INTERPRETIVE INFORMATION: Dehydroepiandr osterone, Females 18 years and older: Postmenopausal: 0.60-5.73 ng/mL REFERENCE INTERVAL: Dehydroepiandrostero ne by TMS Access complete set of age- and/or gende r-specific reference intervals for this test in the [facility] Test Directory ([facility]). Performed by [facility], [address] [place] [id number] [email or web address], Geni Velasquez MD, Lab. Director Specimen Anatomical Collection Method Collection Time Receive d Time (Source) Location / / Volume Laterality Blood specimen 12/07/2012 7:55 AM 013 8:36 (specimen) CDT AM CDT Shelia Cowart MD LAB - BLOOD ORDERABLES Performing Organization Address City/[facility]/ZIP Code Phon e Number [facility] [id number] [place] [address] [facility] [address] [place] [address]. [place], [place] [address] Testosterone free and total (12/07/2012 7:55 AM CDT) Analysis Performed At Patho logist Time Signature Percent 1.8 1.0 - 3.8 [facility] Testosterone Free % [facility] Testosterone 35 8 - 60 [facility] Total ng/dL [facility] Testosterone Free 0.6 0.1 - 1.5 [facility] ng/dL [facility] Comment: Analyte Specific Reagents (ASRs) are use d in many laboratory tests necessary for standard medical care and generally do not require FDA approval. ??This test was developed and its preformance character istics determined by [facility]. ? ?It has not been cleared or approved by the U.S. Food and Drug Administration. Specimen Anatomical Collection Method Collection Time Receive d Time (Source) Location / / Volume Laterality Blood specimen 12/07/2012 7:55 AM 013 7:56 (specimen) CDT AM CDT Shelia Cowart MD LAB - BLOOD ORDERABLES Performing Organization Address City/[facility]/ZIP Code Phon e Number [address] [address] [facility] DHEA sulfate (12/07/2012 7:55 AM CDT) athologist Signature DHEA Sulfate 154 35 - 430 [facility] ug/dL [facility] Specimen Anatomical Collection Method Collection Time Receive d Time (Source) Location / / Volume Laterality Blood specimen 12/07/2012 7:55 AM 013 7:56 (specimen) CDT AM CDT Shelia Cowart MD LAB - BLOOD ORDERABLES Performing Organization Address City/State/ZIP Code Phon e Number [facility] [address] [place] [address] [facility] TSH (12/07/2012 7:55 AM CDT) athologist Signature TSH 0.80 0.4 - 5.0 [facility] mU/L [facility]IN[facility] Specimen Anatomical Collection Method Collection Time Receive d Time (Source) Location / / Volume Laterality Blood specimen 12/07/2012 7:55 AM 013 7:56 (specimen) CDT AM CDT Shelia Cowart MD LAB - BLOOD ORDERABLES Performing Organization Address City/State/ZIP Code Phon e Number [facility] [address] [place] [phone] [facility] [address] [place] [phone] Lipid Profile (Fasting) (12/07/2012 7:55 AM CDT) athologist Signature Cholesterol 175 0 - 200 [facility] mg/dL [facility] Comment: LDL Cholesterol is the primary guide to therapy. The NCEP recommends further evaluation of: patients with cholesterol greater than 200 mg/dL if additional risk facto rs are present, cholesterol greater than 240 mg/dL, triglycerides greater than 1 50 mg/dL, or HDL less than 40 mg/dL. Triglycerides 78 0 - 150 mg/dL [facility] HDL Cholesterol 54 50 - 110 mg/dL [facility] LDL Cholesterol Calculated 105 0 - 129 mg/dL [facility] Comment: LDL Cholesterol is the primary guide to therapy: LDL-cholesterol goal in high risk patients is <100 mg/dL and in very high risk patients is <70 mg/dL. VLDL-Cholesterol 16 0 - 30 mg/dL [facility] Cholesterol/HDL Ratio 3.2 0.0 - 5.0 [facility] Specimen Anatomical Collection Method Collection Time Receive d Time (Source) Location / / Volume Laterality Blood specimen 12/07/2012 7:55 AM 013 7:56 (specimen) CDT AM CDT Shelia Cowart MD LAB - BLOOD ORDERABLES Performing Organization Address City/State/ZIP Code Phon e Number [facility] [address] [place] [address] [facility] [address] [place] [address] Insulin level (Fasting) (12/07/2012 7:55 AM CDT) P athologist Signature Insulin 18 mU/L [facility] Comment: Reference Range: 0-20 Specimen Anatomical Collection Method Collection Time Receive d Time (Source) Location / / Volume Laterality Blood specimen 12/07/2012 7:55 AM 013 7:56 (specimen) CDT AM CDT Shelia Cowart MD LAB - BLOOD ORDERABLES Performing Organization Address City/[facility]/ZIP Code Phon e Number [address] [address] [facility] Hemoglobin A1c (12/07/2012 7:55 AM CDT) P athologist Signature Hemoglobin A1C 5.7 4.3 - 6.0 [facility] Specimen Anatomical Collection Method Collection Time Receive d Time (Source) Location / / Volume Laterality Blood specimen 12/07/2012 7:55 AM 013 7:56 (specimen) CDT AM CDT Shelia Cowart MD LAB - BLOOD ORDERABLES Performing Organization Address City/State/ZIP Code Phon e Number [facility] [phone] [facility] [place] [address] [facility] [address] [facility] [place], [place] [address] Comprehensive metabolic panel (12/07/2012 7:55 AM CDT) P athologist Signature Sodium 142 133 - 144 [facility] mmol/L [facility] Potassium 4.3 3.4 - 5.3 [facility] mmol/L [facility] Chloride 103 94 - 109 [facility] mmol/L [facility] Carbon Dioxide 28 20 - 32 [facility] mmol/L [facility] Anion Gap 11 6 - 17 [facility] mmol/L [facility] Glucose 94 60 - 99 [facility] mg/dL [facility] Urea Nitrogen 11 7 - 30 [facility] mg/dL [facility] Creatinine 0.63 0.52 - [facility] 1.04 mg/dL [facility] GFR Estimate >90 >60 [facility] mL/min/1.7 [facility] m2 GFR Estimate If >90 >60 [facility] mL/min/1.7 [facility] LAB m2 Calcium 9.6 8.5 - 10.4 [facility] mg/dL [facility] Bilirubin Total 0.7 0.2 - 1.3 [facility] mg/dL [facility] Albumin 4.3 3.9 - 5.1 [facility] g/dL [facility] Comment: Reference range changed on 04/16. Protein Total 7.6 6.8 - 8.8 g/dL [facility] Comment: As of 07, reference range reflects plasma specimen type. Alkaline Phosphatase 80 40 - 150 U/L [facility] ALT 27 0 - 50 U/L [facility] AST 25 0 - 45 U/L [facility] Specimen Anatomical Collection Method Collection Time Receive d Time (Source) Location / / Volume Laterality Blood specimen 12/07/2012 7:55 AM 013 7:56 (specimen) CDT AM CDT Shelia Cowart MD LAB - BLOOD ORDERABLES Performing Organization Address City/State/ZIP Code Phon e Number [facility] [address] [facility] [place] [address] [phone] [facility] [address] [place] [address] documented in this encounter Visit Diagnoses Diagnosis Screening for other and unspecified endo crine, nutritional, metabolic, and immunity disorders - Primary Abnormal weight gain Morbid obesity (H) Morbid obesity documented in this encounter Care Teams Vocational Psychologist Relationship Specialty Start Date End Date Pam Walters MD PCP - General Family Practice 03/12/10 10/10/[address] [address] documented as of this encounter
--- OUTSIDE RECORDS SUMMARY | 2022-07-27 08:44 | XMS_ITS | Encounter Summary ---
:1960 Author Organization [facility] Address [address] [place] [address] Care Team Providers Name Role Phone Pam Walters MD Primary Care Provider Encounter Details Date Type Department Care Team Description 10/04/2012 Results Only [facility], [facility] [address] [place] [address] [address] [place] [address] [place], [place] [phone] (Wo rk) Social History Tobacco Use Types Packs/Day Years Used Date Smoking Tobacco: Former Cigarettes 1 20 Smokeless Tobacco: Never Comments: 07/2008 Alcohol Use Standard Drinks/Week Comments Yes 0 (1 standard drink = 0.6 oz pure alcoho l) very little Sex Assigned at Date Recorded Not on file documented as of this encounter Plan of Treatment Scheduled Orders Name Type Priority Associated Diagnoses Order S chedule X-ray SI injection Imaging Ordered: 10/04/2012 documented as of this encounter Visit Diagnoses Not on filedocumented in this encounter Care Teams Lineworker Relationship Specialty Start Date End Date Pam Walters MD PCP - General Family Practice 03/12/10 10/10/[address] [phone] documented as of this encounter
--- OUTSIDE RECORDS SUMMARY | 2022-07-27 08:44 | XMS_ITS | Encounter Summary ---
:1960 Author Organization [facility] Address [address] [place] [address] Care Team Providers Name Role Phone Pam Walters MD Primary Care Provider Encounter Details Date Type Department Care Team Description 11/21/2012 Therapy Visit [facility] and Jean Claude Barrera (Primary Dx); [facility] Villagran DC Left hip pain [facility] [address] [facility] [address] [place] [address] Social History Tobacco Use Types [...] Sign Reading Time Taken Comments Blood Pressure 118/72 11/21/2012 2:07 PM taken at her 11/03/[address] Bowie Pulse - - Temperature - - Respiratory Rate - - Oxygen Saturation - - Inhaled Oxygen - - Concentration Weight 136.1 kg (300 lb) 11/21/2012 2:07 PM CDT Height 180.3 cm (5' 11) 11/21/2012 2:07 PM CDT Body Mass Index 41.84 11/21/2012 2:07 PM CDT documented in this encounter Patient Instructions Patient InstructionsJean Claude Barrera DC - 11/21/2012 2:54 PM CDT RTC in 1 week. May be sore from the visit today. documented in this encounter Progress Notes Jean Claude Barrera DC - 11/21/2012 2:07 PM CDT Images from the original note were not included. Subjective: HPI Comments: Presents with lower back/SIJ pain upon referral from Dr Roth I reviewed the following information from her medical chart: PELVIS 1-2 VIEW(S) AP 11/03/2012 12:15 PM HISTORY: Disorders of sacrum, COMPARISON: None. FINDINGS: Mild bilateral hip degenerative changes. No evidence of acute fracture or subluxation. 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 [employer] Social History Main Topics Smoking Status: Former Smoker Packs/Day: 1 Years: 20 Types: Cigarettes Smokeless Status: Never Used Comment: 07/2008 Alcohol Use: Yes Comment: very little Drug Use: No Sexual Activity: Yes Partners with: Male Control/Protection: Surgical Comment: complete hysterectomy Other Topics Concern Caffeine Concern Yes Comment:1 lg coffee, occas soda Special Diet No Comment:dietary calcium daily, low F/V Exercise Yes Comment:not regular Seat Belt Yes Self-Exams Yes Social History Narrative since 1986, 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, did Masters in liberal studies-,one daughter-32 yo, 3 grandchildren, one dog Current Outpatient Prescriptions: Minoxidil (ROGAINE EX) Zxaelkoxdnc-Nautgchwb-Jfe C-Mn (GLUCOSAMINE 1500 COMPLEX) CAPS cholecalciferol (VITAMIN D) 1000 UNIT tablet fish oil-omega-3 fatty acids (FISH OIL) 1000 MG capsule cetirizine (ZYRTEC) 10 MG tablet ibuprofen (ADVIL,MOTRIN) 800 MG tablet MULTI-VITAMIN OR TABS CALCIUM + D 600-200 MG-UNIT PO TABS Review of patient's family history indicates: Cancer Maternal Grandfather Comment: at 50's-60's YOA, stomach CA Neurological Maternal Grandmother Comment: at 80's, had alzheimer's C.A.D. Paternal Grandmother Comment: late 30's of [place] Cancer Paternal Grandfather Comment: 60's of lung CA,smoker Family History Negative Mother Respiratory Father Comment: sarcoidosis Obesity Sister Comment: 1-HTN Obesity Brother Comment: 1 Colon CA No family hx of Breast CA No family hx of Past Surgical History: C NONSPECIFIC PROCEDURE Comment:s/p x 1 C NONSPECIFIC PROCEDURE 1997 Comment:L ovarian removal secondary to benign cyst C NONSPECIFIC PROCEDURE 1997 Comment:s/p tubal ligation HYSTERECTOMY Comment:s/p hysterectomy & R ovary removed-fibroids C NONSPECIFIC PROCEDURE 08/15 Comment:s/p cholecystectomy Past Medical History: Obesity, unspecified Tobacco use disorder Comment:quited in 07/2008 Absence of menstruation Comment:surgical menopause Degeneration of intervertebral disc, site unsp* 03/20 Comment:MRI, mild DDD, mild bulging L3-4 BCC (basal cell carcinoma) Comment:on rt thigh Annalisa Jacob is a 52 year old female with a sacroiliac (and left hip) condition. Condition occurred with: Insidious onset. Condition occurred: for unknown reasons. This is a chronic condition Several years of left side back and hip pain that has recently become much worse. . Patient reports pain: SI joint left (left hip). Radiates to: Thigh left. Pain is described as sharp and aching and is constant and reported as 7/10 (CHRISTEN 38/100). Associated symptoms: Loss of motion/stiffness. Pain is worse during the day. Exacerbated by: water aerobics restricted as this increases thepain, swiming, biking, walking, and standing. Relieved by: sitting, SIJ injection helped the back pain. Since onset symptoms are gradually worsening. Special tests: X-ray (11/03/12 see comment section).Previous treatment includes physical therapy. There was no improvement following previous treatment.General health as reported by patient is good. Past medical history: See comment section. Medical all ergies: yes (Latex and Penicillin). Surgical history: See comment section. Medication history: See comment section. Current occupation is See comment section. Patient is working in normal job without restrictions. Primary job tasks include: Prolonged sitting and prolonged standing. Barriers include: None as reported by the patient. Red flags: None as reported by the patient. Objective: Standing Alignment: Lumbar: Lordosis decr Gait: Gait Type: Normal Assistive Devices: None Flexibility/Screens: Positive screens: Hip (Left hip passive flexion, adduction and internal rotation were moderately limited with increased left hip pain) Neurological: She is alert and oriented to person, place, and time. She has normal strength. No sensory deficit. Coordination and gait normal. Reflex Scores: Patellar reflexes are 2+ on the right side and 2+ on the left side. Achilles reflexes are 2+ on the right side and 2+ on the left side. Lumbar/SI Evaluation ROM: Arom wnl lumbar: Moderate loss of RR. All ROM did not cause LBP. AROM Thoracic: not assessed Lumbar Myotomes: normal Lumbar DTR's: normal Cord Signs: normal Lumbar Dermtomes: normal Neural Tension/Mobility: Lumbar: Normal Thoracic: Not assessed Lumbar Palpation: Tenderness present at Left: PSIS Tenderness not present at Left: Quadratus Lumborum; Erector Spinae; Piriformis; Iliac Crest; GluteusMedius; Greater Trochanter or Vertebral Tenderness not present at Right: Quadratus Lumborum; Erector Spinae; Piriformis; PSIS; Iliac Crest; Gluteus Medius; Greater Trochanter or Vertebral Spinal Segmental Conclusions: Loss of RR Level: Hypo noted at L5 and S1 Musculoskeletal: Left hip: She exhibits decreased range of motion. She exhibits normal strength, no tenderness, no bony tenderness, no swelling, no crepitus, no deformity and no laceration. Lumbar back: She exhibits tenderness and pain. She exhibits normal range of motion, no bony tenderness, no swelling, no edema, no deformity, no laceration and no spasm. Back: Legs: Review of Systems Musculoskeletal: Positive for back pain and joint pain. Assessment/Plan: Diagnosis (See diagnoses listed above in encounter notes.) Treatment Plan Evaluation Spinal Chiropractic Manipulative Therapy: Right side up with long lever x3 without cavitation Extra-Spinal Chiropractic Manipulative Therapy: LAD to the left hip x4 with cavitation Post treatment response: Reduction of symptoms - much improved standing RR in the lumbar spine and passive left hip flexion/adduciton/internal rotation Rehab Potential / Prognosis: good Rx Explanation - The following has been discussed with the patient: RX ordered/plan of care Anticipated outcomes Possible risks and side effects Frequency: 1 X week Duration: for 2-4 weeks Specific and Measurable Treatment Goals: Decrease pain from 7/10 and pain with exercise, standing and walking to 0-3/10 and little to no pain with standing, walking and pool exercises in 2-4 weeks. Next visit - test standing RR as this was moderately decreased as compared to LR and also test left hip passive flexion/adduction/internal rotation documented in this encounter Plan of Treatment Not on filedocumented as of this encounter Procedures Procedure Name Priority Date/Time Associated Diagnosis Comme nts [facility]AC Routine 11/21/2012 2:54 PM CDT Left hip pain MANIP,EXTRASPINAL,1+ REGNS [facility] CHIROPRA Routine 11/21/2012 2:54 PM CDT Lumbago MANIP,SPINAL,1-2 REGIONS documented in this encounter Visit Diagnoses Diagnosis Lumbago - Primary Left hip pain Pain in joint, pelvic region and thigh documented in this encounter Care Teams Pewter Caster Relationship Specialty Start Date End Date Pam Walters MD PCP - General Family Practice 03/12/10 10/10/[address] [address] documented as of this encounter
--- OUTSIDE RECORDS SUMMARY | 2022-07-27 08:44 | XMS_ITS | Encounter Summary ---
:1960 Author Organization [place] Address [address] [place] [address] Care Team Providers Name Role Phone Pam Walters MD Primary Care Provider Reason for Visit (Routine) - Closed Specialty Diagnoses / Procedures Referred By Contact Refer red To Contact Radiology Diagnoses SI INJECTION Procedure Notes: Disorders of sacrum. Left SI joint steroid injection. Rh Xray Procedures RADIOLOGY [address] [place], [place] [address] Phone: Fax: Referral ID Status Reason Start Date Expiration Date Visits Requ ested Visits Authorized [id number] Closed 12/18/2012 12/14/2013 1 1 Encounter Details Date Type Department Care Team Description 12/20/2012 Hospital Encounter [facility], SI ( sacroiliac) joint [facility] kerline Masc[facility] [address] [facility] [address] [address] [place] [address] Social History Tobacco Use Types Packs/Day [...] Sign Reading Time Taken Comments Blood Pressure 140/90 12/20/2012 8:21 AM CDT Pulse 99 12/20/2012 8:21 AM CDT Temperature - - Respiratory Rate 20 12/20/2012 8:21 AM CDT Oxygen Saturation - - Inhaled Oxygen Concentration - - Weight - - Height - - Body Mass Index - - documented in this encounter Discharge Instructions Discharge InstructionsOc English RN - 12/20/2012 9:04 AM CDT Written and verbal instructions given [...] capsule taking 3000 mg total per day Ozxtmuzveok-Bdvzglbem-Ggp Take by mouth. 0 2011 C-Mn (GLUCOSAMINE [...] Priority Date/Time Associated Comments Diagnosis XR SACROILIAC 12/20/2012 9:01 AM Results for this THERAPEUTIC INJECTION CDT proced ure are in RIGHT the results section. documented in this encounter Results XR Sacroiliac Injection Right (12/20/2012 9:01 AM CDT) Anatomical Region Laterality Modality Abdomen/Pelvis Right Other Specimen (Source) Anatomical Collection Method Collection Time Re ceived Time Location / / Volume Laterality 12/20/2012 9:01 AM CDT Narrative 12/20/2012 3:31 PM CDT SI INJECTION ? 12/20/2012 9:01 AM History: ??Left SI joint pain. PROCEDURE: The [...] 1mL of Kenalog (40mg/mL) and 1 mL of Marcaine 0.5% were injected. The needle was removed. ??The patient to lerated the procedure well and there were no immediate complications. Fluoroscopy time: 28 seconds The patient's pain levels (1-10 scale) a re as follows: PRE INJECTION Low back ? 1 Right leg ?0 Left leg ? 0 POST INJECTION Low back ? 0 Right leg ?0 Left leg ? 0 FINDINGS: Technically successful left SI joint injection MATT RILEY PA-C Procedure Note Matt Riley PA-C - 12/20/2012F ormatting of this note might be different from the original. SI INJECTION 12/20/2012 9:01 AM History: Left SI joint pain. PROCEDURE: [...] 1mL of Kenalog (40mg/mL) and 1 mL of Marcaine 0.5% were injected. The needle was removed. The patient tole rated the procedure well and there were no immediate complications. Fluoroscopy time: 28 seconds The patient's pain levels (1-10 scale) a re as follows: PRE INJECTION Low back 1 Right leg 0 Left leg 0 POST INJECTION Low back 0 Right leg 0 Left leg 0 FINDINGS: Technically successful left SI joint injection MATT RILEY PA-C Meme Roth MD IM DIAGNOSTIC IMAGING ORDER MONTSERRAT documented in this encounter Visit Diagnoses Diagnosis SI (sacroiliac) joint dysfunction Disorders of sacrum documented in this encounter Administered Medications Inactive Administered Medications - up to 3 most recent administrations Medication Order MAR Action Action Date Dose Rate Site BUPivacaine (MARCAINE) Given by Other 12/20/2012 8:58 AM 10 mg injection 0.5% (PF) Clinician CDT 10 mg (2 mL), INTRA-ARTICULAR, ONCE, On Tue12/20/12 at 0845, For 1 dose Lidocaine 1% injection 5 mL Given by Other Clinician 12/20/2012 8:59 AM CDT 5 mLs 5 mL, Subcutaneous, ONCE, On Tue12/20/12 at 0845, For 1 dose triamcinolone acetonide (KENALOG-40) 40 MG/ML injection Starting on Tue12/20/12 at 0826, For 1 dose, NOHEMY LAGUNAS S: cabinet override triamcinolone acetonide Given by Other 12/20/2012 9:00 AM CDT 40 mg (KENALOG-40) injection 40 mg Clinician 40 mg, INTRA-ARTICULAR, ONCE, On Tue12/20/12 at 0845, For 1 dose documented in this encounter Care Teams Last Model Maker Relationship Specialty Start Date End Date Pam Walters MD PCP - General Family Practice 03/12/10 10/10/[address] [address] documented as of this encounter
--- OUTSIDE RECORDS SUMMARY | 2022-07-27 08:44 | XMS_ITS | Encounter Summary ---
:1960 Author Organization [place] Address [address] [place] [address] Care Team Providers Name Role Phone Pam Walters MD Primary Care Provider Encounter Details Date Type Department Care Team Description 12/15/2012 Therapy Visit [facility] and Jean Claude Barrera (Primary Dx); [facility] TRINA Villagran DC Left hip pain [facility] [address] [place] [address] Social History Tobacco Use Types Packs/Day Years Used Date Smoking Tobacco: Former Cigarettes 1 20 Smokeless Tobacco: Never Comments: 07/2008 Alcohol Use Standard Drinks/Week Comments Yes 0 (1 standard drink = 0.6 oz pure alcoho l) very little Sex Assigned at Date Recorded Not on file documented as of this encounter Patient Instructions Patient InstructionsJean Claude Barrera DC - 12/15/2012 8:18 AM CDT RTC in 2 weeks documented in this encounter Progress Notes Jean Claude Barrera DC - 12/15/2012 8:04 AM CDT VISIT 3 2012 SUBJECTIVE: Annalisa reports her back and hip pain are better as her pain is intermittent not constant. Worse on the days she swims. OBJECTIVE: About the same as her prior two visits. ASSESSMENT: Better overall with intermittent pain now. PLAN: Spinal Chiropractic Manipulative Therapy: Right and left side up with long lever x3 without cavitation Extra-Spinal Chiropractic Manipulative Therapy: LAD to the left hip x2 with cavitation RTC in 2 weeks. Pay closer attention to what pool exercises seem to be causing her hip pain to increase. documented in this encounter Plan of Treatment Not on filedocumented as of this encounter Procedures Procedure Name Priority Date/Time Associated Diagnosis Comme nts [facility] Routine 12/15/2012 8:05 AM CDT Left hip pain MANIP,EXTRASPINAL,1+ REGNS [facility] Routine 12/15/2012 8:05 AM CDT Lumbago MANIP,SPINAL,1-2 REGIONS documented in this encounter Visit Diagnoses Diagnosis Lumbago - Primary Left hip pain Pain in joint, pelvic region and thigh documented in this encounter Care Teams Segmental Wall Installer Relationship Specialty Start Date End Date Pam Walters MD PCP - General Family Practice 03/12/10 10/10/[address] [address] documented as of this encounter
--- OUTSIDE RECORDS SUMMARY | 2022-07-27 08:44 | XMS_ITS | Encounter Summary ---
:1960 Author Organization [place] Address [address] [place] [address] Care Team Providers Name Role Phone Pam Walters MD Primary Care Provider Reason for Visit Reason Comments Weight Problem Encounter Details Date Type Department Care Team Description 12/06/2012 Office Visit [facility] Weight Shelia Cowart MD [facility] Ed catherine 1, Sh Wl Diet, RD [address] [facility] [address] [place] [address] Social History Tobacco Use Types [...] - Inhaled Oxygen Concentration - - Weight 141.5 kg (312 lb) 12/06/2012 12:53 PM CDT Height 180.3 cm (5' 11) 12/06/2012 12:53 PM CDT Body Mass Index 43.52 12/06/2012 12:53 PM CDT documented in this encounter Progress Notes Oc Koo, RD, LD - 12/06/2012 1:48 PM CDT MEDICAL WEIGHT LOSS FOLLOW UP DIAGNOSIS: Class III Obesity NUTRITION HISTORY: Breakfast: 2 small oatmeal raisin muffin, coffee Lunch: Low fat/ salt minestrone soup, yakut yogurt Dinner: Low calorie frozen entree or large Caesar salad with light Caesar dressing, occasional chicken breast Snacks: Sting cheese, grapes or banana (mid morning), fresh fruit and light microwave pop corn (afternoon), microwave pop corn (after dinner) Beverage Choices: 200 oz water, 80 oz coffee Exercise: swims 5 X/week, 60-90 minutes Other: Last visit with RD was 02/24/2012 ANTHOPOMETRICS: Initial Weight: 310 pounds Current Weight: 312 pounds Weight Change: increase 2 pounds BMI: 43.61 kg/m2 MEDICATIONS: No weight loss medication at this time EVALUATION/PROGRESS TOWARDS GOALS: Previous Goals: Eat 3 meals/day (met) Journal intake and activity (did my Fitness Pal for ~ 2 months- last RD visit was 02/24/12) Try alternative snacks when craving sweets (making progress) Previous Nutrition Diagnosis: Obese class III related to excess energy intake as evidence by BMI of 43.2 kg/m2 Current Nutrition Diagnosis: No change INTERVENTION: Nutrition Prescription: Recommend modified nutrient intake by decreasing energy intake Implementation: Meals and Snacks: 3 meals and 3 snacks Nutrition Education (Content): Discussed previous goals and determined new goals Encourage physical activity Supported patient in attempted weight loss and behavior changes Verbalizes understanding of weight loss strategies Anticipate fair compliance Provided meal plan for ~ 1800 kcal/day Goals: Include lean protein with each meal (ideas provided) Change to 100 calorie pop corn packs Aim for ~ 1800 kcal/day Follow Up/Monitoring: Other - patient to follow up in 2-3 weeks Time Spent With Patient: 25 Minutes documented in this encounter Plan of Treatment Not on filedocumented as of this encounter Visit Diagnoses Not on filedocumented in this encounter Care Teams Bus Mechanic Relationship Specialty Start Date End Date Pam Walters MD PCP - General Family Practice 03/12/10 10/10/[address] [address] documented as of this encounter
--- OUTSIDE RECORDS SUMMARY | 2022-07-27 08:44 | XMS_ITS | Encounter Summary ---
:1960 Author Organization [place] Address [facility] [place] [address] Care Team Providers Name Role Phone Pam Walters MD Primary Care Provider Reason for Referral Referral not Required - Closed Specialty Diagnoses / Procedures Referred By Contact Refer red To Contact Diagnoses SI (sacroiliac) joint dysfunction Meme Roth, [facility] [address] [place] [address] ADMIN OFFICE [place] [address] [place] [address] Phone: [phone] Referral ID Status Reason Start Date Expiration Date Visits Requ ested Visits Authorized [id number] Closed 11/03/2012 05/02/2013 1 1 Reason for Visit Reason Comments Hip left SI injection helped posterio r pain, anterior still feels funny or off Encounter Details Date Type Department Care Team Description 11/03/2012 Office Visit [facility] Meme Roth SI (sacr oiliac) joint Orthopedic MD Dipti dysfunction (Primary Care-[facility] Dx) Med ORTHOPEDICS [address] [place] [address] [address] [facility] [address] [place], [place] B[place]IE JE[place] [phone] Social History Tobacco Use Types Packs/Day [...] Reading Time Taken Comments Blood Pressure 118/72 11/03/2012 12:04 PM CDT Pulse - - Temperature - - Respiratory Rate - - Oxygen Saturation - - Inhaled Oxygen Concentration - - Weight 136.1 kg (300 lb) 11/03/2012 12:04 PM CDT Height 180.3 cm (5' 11) 11/03/2012 12:04 PM CDT Body Mass Index 41.84 11/03/2012 12:04 PM CDT documented in this encounter Progress Meme Gutierres MD - 11/03/2012 12:20 PM CDT [facility] Follow-up Visit s Nov 03, 2012 Subjective: Annalisa Jacob is a 51 year old female who is seen in follow up for evaluation of left hip pain. Her last visit was on 05/19/2012. Since that time, symptoms have improved after the SI injection on theposterior aspect of the hip/ SI area. She continues to have left anterior hip pain. States it feelsfunny. Patient's past medical, surgical, social and family histories are reviewed today. Objective: BP 118/72 Ht 5' 11 (1.803 m) Wt 300 lb (136.079 kg) BMI 41.84 kg/m2 General: healthy, alert and no distress Skin: no suspicious lesions or rashes Neuro: Sensory and motor exam grossly normal; no focal neurologic deficits appreciated. MSK: Left Hip Exam Palpation: Tender: Left SI joint Non-tender: left greater trochanter, left gluteus medius, left ASIS, left iliac crest, left proximalhamstring attachment Range of Motion: Left Hip flexion full, extension full, external rotation full, internal rotation mild loss, adduction full, abduction full Strength: flexion: 5/5, extension 5/5, abduction: 5-/5, adduction: 5/5 Special tests: no crepitation/snapping over central inguinal region, no crepitation/snapping over greater trochanter, logrolling neg, DARREN pos with pain over left SI joint, FADER neg Imaging: Left hip x-rays (2 views, AP pelvis/frog-leg lateral) were ordered and interpreted in the office today and demonstrated very mild diffuse degenerative changes of the femoral-acetabular joints. Assessment: 1. SI (sacroiliac) joint dysfunction Plan: Discussed the assessment with the patient. Recommended chiropractic treatments for the left SI joint dysfunction to regain movement. Continue with HEP from PT. Ice or heat as needed. Consider an SI joint injection if symptoms persist. Meme Roth MD, [facility] documented in this encounter Nursing Notes 11/03/2012 11:45 AM CDT >> MARIANA CARRENO TueNov 03, 2012 12:06 PM Patient presents with: Hip left - SI injection helped posterir pain, anterior still feels funny or off Initial BP 118/72 Ht 5' 11 (1.803 m) Wt 300 lb (136.079 kg) BMI 41.84 kg/m2 Estimated Body mass index is 41.84 kg/(m^2) as calculated from the following: Height as of this encounter: 5' 11(1.803 m). Weight as of this encounter: 300 lb(136.079 kg).. BP completed using cuff size: large Mariana Carreno ATC documented in this encounter Plan of Treatment Scheduled Referrals Name Type Priority Associated Diagnoses Order S chedule EMI PT, HAND, AND Referral Routine SI (sacroiliac) joint O rdered: 11/03/2012 CHIROPRACTIC REFERRAL dysfunction documented as of this encounter Procedures Procedure Name Priority Date/Time Associated Diagnosis Comme nts XR PELVIS 1/2 VIEWS Routine 11/03/2012 12:15 PM SI (sacroiliac ) Results for this CDT joint dysfunction procedure are in the results section. documented in this encounter Results XR Pelvis 1/2 Views (11/03/2012 12:15 PM CDT) Anatomical Region Laterality Modality Abdomen/Pelvis Other Specimen (Source) Anatomical Collection Method Collection Time Re ceived Time Location / / Volume Laterality 11/03/2012 12:15 PM CDT Narrative 11/03/2012 1:09 PM CDT PELVIS 1-2 VIEW(S) AP ??11/03/2012 12:15 PM HISTORY: Disorders of sacrum, COMPARISON: None. FINDINGS: Mild bilateral hip degenerativ e changes. No evidence of acute fracture or subluxation. KEN KAMARA MD Procedure Note Ken Kamara MD - 11/03/2012Formattin g of this note might be different from the original. PELVIS 1-2 VIEW(S) AP 11/03/2012 12:15 PM HISTORY: Disorders of sacrum, COMPARISON: None. FINDINGS: Mild bilateral hip degenerativ e changes. No evidence of acute fracture or subluxation. KEN KAMARA MD Meme Roth MD IMG DIAGNOSTIC IMAGING ORDER MONTSERRAT documented in this encounter Visit Diagnoses Diagnosis SI (sacroiliac) joint dysfunction - Prim kali Disorders of sacrum documented in this encounter Care Teams Agricultural Agent Relationship Specialty Start Date End Date Pam Walters MD PCP - General Family Practice 03/12/10 10/10/[address] [address] documented as of this encounter
--- OUTSIDE RECORDS SUMMARY | 2022-07-27 08:44 | XMS_ITS | Encounter Summary ---
:1960 Author Organization [place] Address [address] [place] [address] Care Team Providers Name Role Phone Pam Walters MD Primary Care Provider Encounter Details Date Type Department Care Team Description 06/28/2012 Therapy Visit [place] for Yordan Ibanez P T Sacroiliac [facility] Athletic Medicine - [address] [address] (Pr imary Dx) [place] Physical [facility] [address] [address] [address] [place], [place] (Work) [address] [phone] Social History Tobacco Use Types Packs/Day Years Used Date Smoking Tobacco: Former Cigarettes 1 20 Smokeless Tobacco: Never Comments: 07/2008 Alcohol Use Standard Drinks/Week Comments Yes 0 (1 standard drink = 0.6 oz pure alcoho l) very little Sex Assigned at Date Recorded Not on file documented as of this encounter Progress Notes Yordan Ibanez, PT - 06/28/2012 4:02 PM CST Subjective: HPI Objective: System Physical Exam General ROS Assessment/Plan: DISCHARGE REPORT Progress reporting period is from 05-24-12 to 06-28-12. SUBJECTIVE Subjective changes noted by patient: Pt notes decreased pain. Pt is able to correct SI joint when itis out of place.. Current pain level is 2/10 . Previous pain level was 6/10 . Changes in function: Pt is still limited with walking greater than 10 minutes. Pt denies difficulty with all other ADL's. Adverse reaction to treatment or activity: None OBJECTIVE Changes noted in objective findings: Pelvic base even. Pt denies point tenderness with palpation to the lumbar spine and SI joint ASSESSMENT/PLAN Updated problem list and treatment plan: Diagnosis 1: Left SI strain Pain - hot/cold therapy, manualtherapy, self management, education, directional preference exercise and home program Decreased ROM/flexibility - manual therapy, therapeutic exercise, therapeutic activity and home program Decreased strength - therapeutic exercise, therapeutic activities and home program STG/LTGs have been met or progress has been made towards goals: Yes, Assessment of Progress: The patient's condition is improving. Self Management Plans: Patient has been instructed in a home treatment program. I have re-evaluated this patient and find that the nature, scope, duration and intensity of the therapy is appropriate for the medical condition of the patient. Annalisa continues to require the following intervention to meet STG and LTG's: PT Recommendations: This patient is ready to be discharged from therapy and continue their home treatment program. Please refer to the daily flowsheet for treatment today, total treatment time and time spent performing 1:1 timed codes. MACHINE OPERATOR documented in this encounter Plan of Treatment Not on filedocumented as of this encounter Procedures Procedure Name Priority Date/Time Associated Diagnosis Comme nts [facility] THERAPEUTIC Routine 06/28/2012 4:10 PM Sacroiliac strain ACTIVITIES MOLD MACHINE OPERATOR [facility] NEUROMUSCULAR Routine 06/28/2012 4:10 PM Sacroiliac strain RE-EDUCATION MOLD MACHINE OPERATOR [facility] THERAPEUTIC EXERCISES Routine 06/28/2012 4:10 PM Sacroilia c strain MOLD MACHINE OPERATOR [facility] HOT OR COLD PACKS Routine 06/28/2012 4:[address] rain THERAPY MOLD MACHINE OPERATOR documented in this encounter Visit Diagnoses Diagnosis Sacroiliac strain - Primary Sprain of unspecified site of sacroiliac region documented in this encounter Care Teams Still Operator Gin Relationship Specialty Start Date End Date Pam Walters MD PCP - General Family Practice 03/12/10 10/10/[address] [address] documented as of this encounter
--- OUTSIDE RECORDS SUMMARY | 2022-07-27 08:44 | XMS_ITS | Encounter Summary ---
:1960 Author Organization [place] Address [address] [place] [address] Care Team Providers Name Role Phone Pam Walters MD Primary Care Provider Encounter Details Date Type Department Care Team Description 05/24/2012 Therapy Visit [place] for Yordan Ibanez P T Sacroiliac [facility] Athletic Medicine - [address] [address] (Pr imary Dx) [place] Physical [facility] [address] [facility] [address] [address] [place], [place] (Work) [address] [phone] Social History Tobacco Use Types Packs/Day Years Used Date Smoking Tobacco: Former Cigarettes 1 20 Smokeless Tobacco: Never Comments: 07/2008 Alcohol Use Standard Drinks/Week Comments Yes 0 (1 standard drink = 0.6 oz pure alcoho l) very little Sex Assigned at Date Recorded Not on file documented as of this encounter Progress Notes Yoon Henao - 05/24/2012 5:51 PM CDT Subjective: Pertinent medical history includes: Overweight and osteoarthritis. Medical allergies: yes (penicillan). Other surgeries include: Orthopedic surgery (total knee replacement 2009). 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 Patient is working in normal job without restrictions. Primary job tasks include: Prolonged sitting and repetitive tasks. Barriers include: Bathroom/bedroom on second floor and stairs. Objective: System Physical Exam General ROS Assessment/Plan: IbanezYordan cartagena, PT - 05/24/2012 3:24 PM CDT Subjective: Annalisa Jacob is a 51 year old female with a lumbar condition. Condition occurred with: Insidiousonset. Condition occurred: other. This is a recurrent condition insidous onset of left SI pain 9-12. Patient reports pain: Lumbar spine left. Radiates to: Gluteals left, thigh left, knee left, lower leg left and foot left. Pain is described as aching and is intermittent and reported as 6/10. Associated symptoms: Loss of strength and loss of motion/stiffness. Pain is the same all the time. Symptoms are exacerbated by standing, walking and sitting (aqua jogging) and relieved by rest, NSAID's and ice. Since onset symptoms are gradually improving. Previous treatment includes physical therapy. Objective: System Lumbar/SI Evaluation ROM: AROM Lumbar: Flexion: 80% Ext: 50 Side Bend: Left: 75 Right: 75 Rotation: Left: Right: Side [place]: Left: Right: Strength: weak lower abdominals Lumbar Palpation: Palpation (lumbar): point tenderness left sacral sulcus. SI joint/Sacrum: Posterior rotation left inominate. Positive Manan's test left SI joint General ROS Assessment/Plan: Patient is a 51 year old female with lumbar complaints. Patient has the following significant findings with corresponding treatment plan. Diagnosis 1: Left SI strain Pain - hot/cold therapy, manual therapy, self management, education, directional preference exercise and home program Decreased ROM/flexibility - manual therapy, therapeutic exercise, therapeutic activity and home program Decreased strength - therapeutic exercise, therapeutic activities and home program Previous and current functional limitations: (See Goal Flow Sheet for this information) Short term and long-term goals: (See Goal Flow Sheet for this information) Communication ability: Patient appears to be able to clearly communicate and understand verbal and written communication and follow directions correctly. Treatment Explanation - The following has been discussed with the patient: RX ordered/plan of care Anticipated outcomes Possible risks and side effects This patient would benefit from PT intervention to resume normal activities. Rehab potential is good. Frequency: 2 X week, once daily Duration: for 4 weeks Discharge Plan: Achieve all LTG. Independent in home treatment program. Reach maximal therapeutic benefit. Please refer to the daily flowsheet for treatment today, total treatment time and time spent performing 1:1 timed codes. documented in this encounter Plan of Treatment Not on filedocumented as of this encounter Procedures Procedure Name Priority Date/Time Associated Diagnosis Comme nts [facility] THERAPEUTIC Routine 05/24/2012 4:46 PM CDT Sacroiliac stra in EXERCISES C HOT OR COLD PACKS Routine 05/24/2012 4:46 PM CDT Sacroilia c strain THERAPY documented in this encounter Visit Diagnoses Diagnosis Sacroiliac strain - Primary Sprain of unspecified site of sacroiliac region documented in this encounter Care Teams Boxing Promoter Relationship Specialty Start Date End Date Pam Walters MD PCP - General Family Practice 03/12/10 10/10/[address] [address] documented as of this encounter
--- OUTSIDE RECORDS SUMMARY | 2022-07-27 08:44 | XMS_ITS | Encounter Summary ---
:1960 Author Organization [place] Address [address] [place] [address] Care Team Providers Name Role Phone Pam Walters MD Primary Care Provider Encounter Details Date Type Department Care Team Description 11/28/2012 Therapy Visit [facility] and Jean Claude Barrera (Primary Dx); [facility] RTINA Villagran DC Left hip pain [facility] [address] [place] [address] [address] [place] [address] Social History Tobacco Use Types Packs/Day Years Used Date Smoking Tobacco: Former Cigarettes 1 20 Smokeless Tobacco: Never Comments: 07/2008 Alcohol Use Standard Drinks/Week Comments Yes 0 (1 standard drink = 0.6 oz pure alcoho l) very little Sex Assigned at Date Recorded Not on file documented as of this encounter Patient Instructions Patient InstructionsBraJean Claude oliveira DC - 11/28/2012 2:14 PM CDT RTC in 2 weeks documented in this encounter Progress Notes Jean Claude Barrera DC - 11/28/2012 1:55 PM CDT VISIT 2 2012 SUBJECTIVE: Annalisa reports her left hip and LBP are markedly better after her last visit. Able to walk, bend, and sit better. OBJECTIVE: Marked improvement in her lumbar standing active RR and right hip passive hip motion. ASSESSMENT: Improved PLAN: Spinal Chiropractic Manipulative Therapy: Right side up with long lever x3 without cavitation Extra-Spinal Chiropractic Manipulative Therapy: LAD to the left hip x4 with cavitation documented in this encounter Plan of Treatment Not on filedocumented as of this encounter Procedures Procedure Name Priority Date/Time Associated Diagnosis Comme nts [facility] Routine 11/28/2012 2:14 PM CDT Left hip pain MANIP,EXTRASPINAL,1+ REGNS [facility] Routine 11/28/2012 2:14 PM CDT Lumbago MANIP,SPINAL,1-2 REGIONS documented in this encounter Visit Diagnoses Diagnosis Lumbago - Primary Left hip pain Pain in joint, pelvic region and thigh documented in this encounter Care Teams Gas Compressor Turbine Operator Relationship Specialty Start Date End Date Pam Walters MD PCP - General Family Practice 03/12/10 10/10/[address] [address] documented as of this encounter
--- OUTSIDE RECORDS SUMMARY | 2022-07-27 08:44 | XMS_ITS | Encounter Summary ---
:1960 Author Organization [place] Address [address] [place] [address] Care Team Providers Name Role Phone Pam Walters MD Primary Care Provider Encounter Details Date Type Department Care Team Description 05/31/2012 Therapy Visit [place] for Yordan Ibanez P T Sacroiliac [facility] Athletic Medicine - [id number] [place] [address] (Pr imary Dx) [place] Physical [facility] [address] [facility] [address] [address] [place], [place] (Work) [address] [phone] Social History Tobacco Use Types Packs/Day Years Used Date Smoking Tobacco: Former Cigarettes 1 20 Smokeless Tobacco: Never Comments: 07/2008 Alcohol Use Standard Drinks/Week Comments Yes 0 (1 standard drink = 0.6 oz pure alcoho l) very little Sex Assigned at Date Recorded Not on file documented as of this encounter Progress Notes Yordan Ibanez, PT - 05/31/2012 7:31 AM CDT Subjective: HPI Objective: System Physical Exam General ROS Assessment/Plan: SUBJECTIVE Subjective changes as noted by pt: Pt noted relief for 4 days but has noted return of pain Current pain level: 4/10 Changes in function: Pt still notes difficulty with sleeping. Adverse reaction to treatment or activity: None OBJECTIVE Changes in objective findings: Posterior rotation of left inominate noted, corrected with self MET ASSESSMENT Annalisa continues to require intervention to meet STG and LTG's: PT Patient's symptoms are resolving. Response to therapy has shown an improvement in strength Progress made towards STG/LTG? Yes, PLAN Current treatment program is being advanced to more complex exercises. AIRCRAFT COMMUNICATOR/ATC plan: N/A Please refer to the daily flowsheet for treatment today, total treatment time and time spent performing 1:1 timed codes. documented in this encounter Plan of Treatment Not on filedocumented as of this encounter Procedures Procedure Name Priority Date/Time Associated Diagnosis Comme nts [facility] ELECTRIC STIMULATION Routine 05/31/2012 7:57 AM CDT Sacroi liac strain THERAPY [facility] HOT OR COLD PACKS Routine 05/31/2012 7:57 AM CDT Sacroilia c strain THERAPY [facility] THERAPEUTIC Routine 05/31/2012 7:57 AM CDT Sacroiliac stra in ACTIVITIES [facility] THERAPEUTIC Routine 05/31/2012 7:57 AM CDT Sacroiliac stra in EXERCISES documented in this encounter Visit Diagnoses Diagnosis Sacroiliac strain - Primary Sprain of unspecified site of sacroiliac region documented in this encounter Care Teams Adding Machine Operator Relationship Specialty Start Date End Date Pam Walters MD PCP - General Family Practice 03/12/10 10/10/[address] [address] documented as of this encounter
--- OUTSIDE RECORDS SUMMARY | 2022-07-27 08:44 | XMS_ITS | Encounter Summary ---
:1960 Author Organization [place] Address [address] [facility] [place] [address] Care Team Providers Name Role Phone Pam Walters MD Primary Care Provider Reason for Referral Specialty Diagnoses / Procedures Referred By Contact [place] [address] [place] [address] Referral ID Status Reason Start Date Expiration Date Visits Requ ested Visits Authorized Reason for Visit Reason Comments Weight Problem pt is restarting program. pt is seeing diet after. Encounter Details Date Type Department Care Team Description 12/06/2012 Office Visit [facility] Shelia Cowart Morbid obe sity (H) (Primary Dx); Weight Management MD [facility] n; Clinic [facility] Abnormal weight gain; [address] SI (sac roiliac) joint dysfunction; [address] Anxiety; [place] [phone] Screening for other and unsp ecified endocrine, nutritional, metabolic, and immunity disorders [phone] Social History Tobacco Use Types Packs/Day Years Used Date Smoking Tobacco: Former Cigarettes 1 20 Smokeless Tobacco: Never Comments: 07/2008 Alcohol Use Standard Drinks/Week Comments Yes 0 (1 standard drink = 0.6 oz pure alcoho l) very little Sex Assigned at Date Recorded Not on file documented as of this encounter Last Filed Vital Signs Vital Sign Reading Time Taken Comments Blood Pressure 141/74 12/06/2012 12:54 PM CDT 2nd bp- 122/70 Pulse 84 12/06/2012 12:54 PM CDT Temperature - - Respiratory Rate 16 12/06/2012 12:54 PM CDT Oxygen Saturation 98% 12/06/2012 12:54 PM CDT Inhaled Oxygen Concentration - - Weight 141.5 kg (312 lb) 12/06/2012 12:54 PM CDT Height 180.3 cm (5' 11) 12/06/2012 12:54 PM CDT Body Mass Index 43.52 12/06/2012 12:54 PM CDT documented in this encounter Patient Instructions Patient InstructionsObed Springer - 12/06/2012 1:02 PM CDT Patient Instructions - Weight Loss Initial Evaluation (1) Have your fasting labs done at least 5 days before your next appointment. (2) Your lab orders have been placed. Please call the [facility] lab of your choice (clinic or hospital) and setup an appointment to have your blood drawn. (3) Schedule a return to clinic appointment in 2-4 weeks to see your MD and a dietitian. (4) Schedule your exercise evaluation at our front desk auxiliary or call [phone]. (5) Begin recording your food intake and activity/exercise. Remember to bring these records to your next weight loss clinic appointment. Patient Instructions - Weight Loss Initial Evaluation (1) Have your fasting labs done at least 5 days before your next appointment. (2) Your lab orders have been placed. Please call the [facility] lab of your choice (clinic or hospital) and setup an appointment to have your blood drawn. (3) Schedule a return to clinic appointment in 2-4 weeks to see your MD and a dietitian. (4) Schedule your exercise evaluation at our front desk auxiliary or call [phone]. (5) Begin recording your food intake and activity/exercise. Remember to bring these records to your next weight loss clinic appointment. documented in this encounter Progress Notes Shelia Cowart MD - 12/06/2012 12:58 PM CDT Medical Weight Loss Follow Up Visit CHIEF COMPLAINT: Chief Complaint Patient presents with ??? Weight Problem pt is restarting program. pt is seeing diet after. HISTORY OF PRESENT ILLNESS (HPI): Patient returns today for medical weight loss follow-up visit. Restarting program. Patient was has not been seen in this clinic since 02-24-12. Tried diet on own in the interim since last visit without success. Her weight is up 2 pounds since last visit. Patient is seeing dietitian today Patient is exercising 5 days per week for 60 minutes. Has had intermittent SI joint pain problems since last visit and is seeing chiropractor through [facility]. Has 2 visits left. This treatment has improved this pain. No other new any new health issues since last visit. Did not complete initial blood work after last visit MEDICATIONS: Current Outpatient Prescriptions Medication Sig ??? Minoxidil (ROGAINE EX) Externally apply topically. ??? Zgtomoblkvt-Bvrggmdto-Clx C-Mn (GLUCOSAMINE 1500 COMPLEX) CAPS Take by [...] TABS ONE TABLET DAily WITH MEALS ??? ibuprofen (ADVIL,MOTRIN) 800 MG tablet Take 1 tablet by mouth every 8 hours as needed for pain. ALLERGIES: Allergies Allergen Reactions ??? Latex Rash, redness, swelling ??? Penicillins PHYSICAL EXAMINATION: VITALS: BP 141/74 Pulse 84 Resp 16 Ht 5' 11 (1.803 m) Wt 312 lb (141.522 kg) BMI 43.52 kg/m2 SpO2 98% ? No GENERAL: Patient is a 52 year old year old female in no acute distress. Patient is alert and orientated x 4, pleasant and cooperative with exam. CARDIOVASCULAR: Regular rate and rhythm without murmurs, rubs, or gallops. RESPIRATORY: Lungs are clear to auscultation bilaterally, respiratory effort is normal. LE; are without edema ASSESSMENT/PLAN: 1. Morbid obesity 2. Weight gain 3. Abnormal weight gain 4. SI (sacroiliac) joint dysfunction 5. Anxiety 6. Screening for other and unspecified endocrine, nutritional, metabolic, and immunity disorders PLAN: Patient advised to complete blood work as per our previous visit. Will reorder. RTC in 2 weeks to review labs and discuss next steps of weight loss plan. We briefly discussed use of phentermine and shedoes now voice interest in this. Discussed use of off-label use of medications in this practice and this term Referred to bariatric dietitian. Referred to bariatric physical therapist for exercise evaluation Patient is not interested in behavioral therapist referral This was a 25 minute visit spent in total mnct-jo-omte care with greater than 50% of time spent discussing treatment options and answering patients questions regarding program and care. ORDERS PLACED IN TODAY'S VISIT: Orders Placed This Encounter Procedures ??? FALL RISK ASSESSMENT ??? Comprehensive metabolic panel ??? Hemoglobin A1c ??? Insulin level (Fasting) ??? Lipid Profile (Fasting) ??? TSH ??? DHEA sulfate ??? Dehydroepiandrosterone ??? Testosterone free and total ??? Cortisol ??? PHYSICAL THERAPY (EXERCISE EVAL) documented in this encounter Plan of Treatment Not on filedocumented as of this encounter Visit Diagnoses Diagnosis Morbid obesity (H) - Primary Morbid obesity Weight gain Abnormal weight gain Abnormal weight gain SI (sacroiliac) joint dysfunction Disorders of sacrum Anxiety Anxiety state, unspecified Screening for other and unspecified endo crine, nutritional, metabolic, and immunity disorders documented in this encounter Care Teams Wood Window And Door Craftsman Relationship Specialty Start Date End Date Pam Walters MD PCP - General Family Practice 03/12/10 10/10/[address] [address] documented as of this encounter
--- OUTSIDE RECORDS SUMMARY | 2022-07-27 08:44 | XMS_ITS | Encounter Summary ---
:1960 Author Organization [place] Address [address] [place] [address] Care Team Providers Name Role Phone Pam Walters MD Primary Care Provider Encounter Details Date Type Department Care Team Description 12/18/[address] [facility] [place], Left low b ack pain [facility] Renae (Primary Dx) [address] [place] [phone] Social History Tobacco Use Types Packs/Day Years [...] of this encounter Visit Diagnoses Diagnosis Left low back pain - Primary Lumbago documented in this encounter Care Teams Gut Dropper Relationship Specialty Start Date End Date Pam Walters MD PCP - General Family Practice 03/12/10 10/10/[address] [id number] documented as of this encounter
--- OUTSIDE RECORDS SUMMARY | 2022-07-27 08:44 | XMS_ITS | Encounter Summary ---
:1960 Author Organization [place] Address [address] [place] [address] Care Team Providers Name Role Phone Pam Walters MD Primary Care Provider Taty Jacob Primary Care Provider Encounter Details Date Type Department Care Team Description 08/10/[address] [facility] Weight Shelia Cowart Aman russell MD Management [facility] Ed catherine [address] [place] [address] Social History Tobacco Use Types [...] - Inhaled Oxygen Concentration - - Weight 140.6 kg (310 lb) 02/24/2012 8:00 AM CDT Height 180.3 cm (5' 11) 02/24/2012 8:00 AM CDT Body Mass Index 43.24 02/24/2012 8:00 AM CDT documented in this encounter Plan of Treatment Not on filedocumented as of this encounter Visit Diagnoses Not on filedocumented in this encounter Care Teams Line Up Machine Operator Relationship Specialty Start Date End Date Pam Walters MD PCP - General Family Practice 03/12/10 10/10/[address] [address] Taty Jacob PCP - General Nurse Practitioner 10/11/13 [facility] [address], [place] [address] documented as of this encounter
--- OUTSIDE RECORDS SUMMARY | 2022-07-27 08:44 | XMS_ITS | Encounter Summary ---
:1960 Author Organization [place] Address [address] [place] [address] Care Team Providers Name Role Phone Pam Walters MD Primary Care Provider Reason for Visit Reason Onset Date Comments Orders 09/26/2012 Encounter Details Date Type Department Care Team Description 09/26/2012 Telephone [facility] Cameron Roth, Orders [facility] [address] [facility] [place] [address] [facility] [facility] [phone] [place] [address] (Wo rk) Social History Tobacco [...] Telephone Encounter - Arpita Pleitez RN - 09/26/2012 10:27 AM CST Pt. LVM stating she would like to have injection completed that Dr. Roth recommended at last office visit 05/19/12. Pt. Attended 6 PT sessions without relief. Orders for injection have , new orders entered. Call placed to pt. Informing her the orders were entered. Number given for [facility] for pt. To call and schedule appt. She will follow up in clinic in 2 weeks if still experiencing LBP. No physician action required. Arpita Pleitez, RN ORX PIPING DESIGNER documented in this encounter Plan of Treatment Not on filedocumented as of this encounter Procedures Procedure Name Priority Date/Time Associated Comments Diagnosis XR SACROILIAC 10/04/2012 10:48 Results fo r this THERAPEUTIC INJECTION AM [employer] PIPING DESIGNER proced ure are in RIGHT the results section. documented in this encounter Results X-ray SI injection (10/04/2012 10:48 AM [employer] PIPING DESIGNER) Anatomical Region Laterality Modality Abdomen/Pelvis Right Other Specimen (Source) Anatomical Collection Method Collection Time Re ceived Time Location / / Volume Laterality 10/04/2012 10:48 AM [employer] PIPING DESIGNER Narrative 10/04/2012 4:59 PM [employer] PIPING DESIGNER SI INJECTION October 04, 2012 10:48 AM HISTORY: Left SI joint pain. TECHNIQUE: The risks, benefits, and alte rnatives to left SI joint injection were thoroughly discussed with patient. Informed consent was signed. Using the usual strict sterile technique , 1% lidocaine for local anesthesia, and fluoroscopic guidance, a 22-gauge spinal was directed into the inferior aspect of left SI join t. Intra-articular location was confirmed with injection of a minima l amount of Isovue 200. This is followed by injection of 40 mg Kenalo g +1 mL 1% lidocaine. The patient tolerated the procedure well and noted that her pain decreased from 2/10-0/10 following the p rocedure. 14 seconds of fluoroscopy time utilized. KEN KAMARA MD Procedure Note Ken Kamara MD - 10/04/2012Formattin g of this note might be different from the original. SI INJECTION October 04, 2012 10:48 AM HISTORY: Left SI joint pain. TECHNIQUE: The risks, benefits, and alte rnatives to left SI joint injection were thoroughly discussed with patient. Informed consent was signed. Using the usual strict sterile technique , 1% lidocaine for local anesthesia, and fluoroscopic guidance, a 22-gauge spinal was directed into the inferior aspect of left SI join t. Intra-articular location was confirmed with injection of a minima l amount of Isovue 200. This is followed by injection of 40 mg Kenalo g +1 mL 1% lidocaine. The patient tolerated the procedure well and noted that her pain decreased from 2/10-0/10 following the p rocedure. 14 seconds of fluoroscopy time utilized. KEN KAMARA MD Meme Roth MD [facility] ORDER [place] documented in this encounter Visit Diagnoses Diagnosis Disorders of sacrum - Primary documented in this encounter Care Teams Website Project Manager Relationship Specialty Start Date End Date Pam Walters MD PCP - General Family Practice 03/12/10 10/10/[address] [address] documented as of this encounter
--- OUTSIDE RECORDS SUMMARY | 2022-07-27 08:44 | XMS_ITS | Encounter Summary ---
:1960 Author Organization [place] Address [address] [place] [address] Care Team Providers Name Role Phone Pam Walters MD Primary Care Provider Reason for Visit Reason Comments Weight Problem Encounter Details Date Type Department Care Team Description 12/15/2012 Office Visit [facility] Shelia Cowart Morbid baldemar ye (H) (Primary Dx); Weight Management MD K[facility] Other [facility] Clinic [address] [place] [address] Social History Tobacco Use Types [...] Sign Reading Time Taken Comments Blood Pressure 125/69 12/15/2012 11:10 AM CDT Pulse 79 12/15/2012 11:10 AM CDT Temperature - - Respiratory Rate 18 12/15/2012 11:10 AM CDT Oxygen Saturation - - Inhaled Oxygen Concentration - - Weight 141.1 kg (311 lb) 12/15/2012 11:10 AM CDT Height 180.3 cm (5' 11) 12/15/2012 11:10 AM CDT Body Mass Index 43.38 12/15/2012 11:10 AM CDT documented in this encounter Patient Instructions Patient InstructionsShelia Cowart MD - 12/15/2012 11:52 AM CDT Patient Instructions - Weight Loss Follow-up (1) Have any labs that were discussed at your appointment done as soon as possible. Orders have beenplaced in the [facility] computer system so you can have your labs done at any [facility] lab or [facility] lab ([facility]). - (2) Schedule your follow-up MD [...] sure to schedule them by calling [facility] clinic [phone]. (5) Continue to diary or log your food intake and exercise and [facility] these [facility] documented in this encounter Progress Notes Shelia Cowart MD - 12/15/2012 11:13 AM CDT Medical Weight Loss - Follow-up Visit Chief Complaint: Chief Complaint Patient presents with ??? Weight Problem HISTORY OF PRESENT ILLNESS (HPI): Patient returns today for medical weight loss follow-up visit. Patient was last seen by me on 12/07/2012 and has lost 1pounds. Patient is not seeing dietitian today-but is scheduled Patient is not seeing PT-but is scheduled Today we reviewed patient's lab results for labs ordered at last visit. Answered patient's questionsregarding lab results. We discussed that she is pre-diabetic. Discussed risks vs benefits of metformin in the situation of pre- diabetes/insulin resistance syndrome/abnromal fasting blood glucose and for mild weight loss effects. Discussed that this is an off-label use of metformin and meaning of that term was explained. Patient would prefer to defer on starting this at this time. Today patient expresses interest in beginning weight loss medication. We discussed the risks versus benefits of phentermine, including risk of elevated blood pressure and heart rate, risk of constipation, dry mouth, insomnia, anxiety or mood changes. Discussed potential cardiopulmonary side effects of previous similar medications in the past. Discussed dosing of phentermine. After reviewing the risksversus benefits, the patient remains interested in trying this medication. All questions regarding medication were answered. The patient agrees to follow up regularly for monitoring of blood pressure, heart rate, and medication effectiveness. MEDICATIONS: Current Outpatient Prescriptions Medication Sig ??? phentermine (ADIPEX-P) 37.5 MG tablet Take 1/2 tablet PO qday in AM for 2 days, then increase to1 tablet PO qday in AM. ??? Minoxidil (ROGAINE EX) Externally apply topically. ??? Jmfvuotaiaf-Pjqvchssp-Ecu C-Mn (GLUCOSAMINE 1500 COMPLEX) CAPS Take by [...] swelling ??? Penicillins PHYSICAL EXAMINATION: VITALS: BP 125/69 Pulse 79 Resp 18 Ht 5' 11 (1.803 m) Wt 311 lb (141.069 kg) BMI 43.38 kg/m2 GENERAL: Patient is a 52 year old year old female in no acute distress. Patient is alert and orientated x 4, pleasant and cooperative with exam. CARDIOVASCULAR: Regular rate and rhythm without murmurs, rubs, or gallops. RESPIRATORY: Lungs are clear to auscultation bilaterally, respiratory effort is normal. LAB RESULTS: Orders Only on 12/07/2012 Component Date Value Range Status ??? Sodium 12/07/2012 142 133 - 144 mmol/L Final ??? Potassium 12/07/2012 4.3 3.4 - 5.3 mmol/L Final ??? Chloride 12/07/2012 103 94 - 109 mmol/L Final ??? Carbon Dioxide 12/07/2012 28 20 - 32 mmol/L Final ??? Anion Gap 12/07/2012 11 6 - 17 mmol/L Final ??? Glucose 12/07/2012 94 60 - 99 mg/dL Final ??? Urea Nitrogen 12/07/2012 11 7 - 30 mg/dL Final ??? Creatinine 12/07/2012 0.63 0.52 - 1.04 mg/dL Final ? ? GFR Estimate 12/07/2012 >90 >60 mL/min/1.7m2 Final ? ? GFR Estimate If Black 12/07/2012 >90 >60 mL/min/1.7m2 Final ??? Calcium 12/07/2012 9.6 8.5 - 10.4 mg/dL Final ??? Bilirubin Total 12/07/2012 0.7 0.2 - 1.3 mg/dL Final ??? Albumin 12/07/2012 4.3 3.9 - 5.1 g/dL Final Reference range changed on 05/07/2008. ??? Protein Total 12/07/2012 7.6 6.8 - 8.8 g/dL Final As of 12/29/07, reference range reflects plasma specimen type. ??? Alkaline Phosphatase 12/07/2012 80 40 - 150 U/L Final ??? ALT 12/07/2012 27 0 - 50 U/L Final ??? AST 12/07/2012 25 0 - 45 U/L Final ??? Hemoglobin A1C 12/07/2012 5.7 4.3 - 6.0 % Final ??? Insulin 12/07/2012 18 Final Reference Range: 0-20 ??? Cholesterol 12/07/2012 175 0 - 200 mg/dL Final Comment: LDL Cholesterol is the primary guide to therapy. The NCEP recommends further evaluation of: patients with cholesterol greater than 200 mg/dL if additional risk factors are present, cholesterol greater than 240 mg/dL, triglycerides greater than 150 mg/dL, or HDL less than 40 mg/dL. ??? Triglycerides 12/07/2012 78 0 - 150 mg/dL Final ??? HDL Cholesterol 12/07/2012 54 50 - 110 mg/dL Final ??? LDL Cholesterol Calculated 12/07/2012 105 0 - 129 mg/dL Final Comment: LDL Cholesterol is the primary guide to therapy: LDL-cholesterol goal in high risk patients is <100 mg/dL and in very high risk patients is <70 mg/dL. ??? VLDL-Cholesterol 12/07/2012 16 0 - 30 mg/dL Final ??? Cholesterol/HDL Ratio 12/07/2012 3.2 0.0 - 5.0 Final ??? TSH 12/07/2012 0.80 0.4 - 5.0 mU/L Final ??? DHEA Sulfate 12/07/2012 154 35 - 430 ug/dL Final ??? Percent Testosterone Free 12/07/2012 1.8 1.0 - 3.8 % Final ??? Testosterone Total 12/07/2012 35 8 - 60 ng/dL Final ??? Testosterone Free 12/07/2012 0.6 0.1 - 1.5 ng/dL Final Comment: Analyte Specific Reagents (ASRs) are used in many laboratory tests necessary for standard medical care and generally do not require FDA approval. This test was developed and its preformance characteristics determined by [facility]. It has not been cleared or approved by the U.S. Food and Drug Administration. ??? Cortisol Serum 12/07/2012 7.3 4 - 22 ug/dL Final Comment: 8 AM Cortisol Reference Range = 4-22 ug/dL 4 PM Cortisol Reference Range = 3-17 ug/dL ??? Dehydroepiandrosterone 12/07/2012 5.140* Final Comment: Reference range: 0.630 to 4.700 Unit: ng/mL (Note) INTERPRETIVE INFORMATION: Dehydroepiandrosterone, Females 18 years and older: Postmenopausal: 0.60-5.73 ng/mL REFERENCE INTERVAL: Dehydroepiandrosterone by TMS Access complete set of age- and/or gender-specific reference intervals for this test in the [facility] ([employer]). Performed by [facility], [address] [place] [id number] www.[employer], Geni Velasquez MD, Lab. Director ASSESSMENT/PLAN: 1. Morbid obesity 2. Other abnormal glucose Pre-diabetes PLAN: 1.Start phentermine. Prescription was given for phentermine Patient is to return to the clinic in 4 Weeks. Patient is advised to call clinic if she experiences any adverse reaction(s). Patient was advised to schedule follow-up appointments with bariatric dietitian. Patient was advised to schedule follow-up appointments with bariatric physical therapist (PT). 2. Will defer on use glucophage at this time. ORDERS PLACED IN TODAY'S VISIT: No orders of the defined types were placed in this encounter. documented in this encounter Nursing Notes 12/15/2012 11:20 AM CDT >> Terrell Hart Fri December 15, 2012 11:16 AM Patient here for 2 week follow up. Would like to discuss medications. Also discuss Blood Pressure and lab results. Terrell Hart documented in this encounter Plan of Treatment Not on filedocumented as of this encounter Visit Diagnoses Diagnosis Morbid obesity (H) - Primary Morbid obesity Other abnormal glucose documented in this encounter Care Teams Set Key Driver Relationship Specialty Start Date End Date Pam Walters MD PCP - General Family Practice 03/12/10 10/10/[address] [address] documented as of this encounter
--- OUTSIDE RECORDS SUMMARY | 2022-07-27 08:44 | XMS_ITS | Encounter Summary ---
:1960 Author Organization [facility] Address [address] [place] [address] Care Team Providers Name Role Phone Pam Walters MD Primary Care Provider Encounter Details Date Type Department Care Team Description 06/21/2012 Therapy Visit [facility] Dotty Gonzalez Sa croiliac strain Medicine - Jolley GRID TRIMMER (Prima ry Dx) [facility] [address] [place] [phone] Social History Tobacco Use Types Packs/Day Years [...] Associated Diagnosis Comme nts [facility] THERAPEUTIC Routine 06/21/2012 7:47 AM Sacroiliac strain ACTIVITIES CIRCUIT JUDGE [facility] NEUROMUSCULAR Routine 06/21/2012 7:47 AM Sacroiliac strain RE-EDUCATION CIRCUIT JUDGE [facility] THERAPEUTIC EXERCISES Routine 06/21/2012 7:46 AM Sacroilia c strain CIRCUIT JUDGE documented in this encounter Visit Diagnoses Diagnosis Sacroiliac strain - Primary Sprain of unspecified site of sacroiliac region documented in this encounter Care Teams Electrocardiograph Technician Relationship Specialty Start Date End Date Pam Walters MD PCP - General Family Practice 03/12/10 10/10/[address] [address] documented as of this encounter
--- OUTSIDE RECORDS SUMMARY | 2022-07-27 08:44 | XMS_ITS | Encounter Summary ---
:1960 Author Organization [facility] Address [address] [place] [address] Care Team Providers Name Role Phone Pam Walters MD Primary Care Provider Encounter Details Date Type Department Care Team Description 09/29/2012 Orders Only [facility] Kn[place], Disorder o f sacrum [place] Nedra Renae RN (Primary Dx) [address] [place] [phone] Social History Tobacco Use Types Packs/Day Years [...] as of this encounter Visit Diagnoses Diagnosis Disorder of sacrum - Primary Disorders of sacrum documented in this encounter Care Teams Graves Registration Specialist Relationship Specialty Start Date End Date Pam Walters MD PCP - General Family Practice 03/12/10 10/10/[address] [id number] documented as of this encounter
--- OUTSIDE RECORDS SUMMARY | 2022-07-27 08:45 | XMS_ITS | Encounter Summary ---
:1960 Author Organization [facility] Address [address] [place] [address] Care Team Providers Name Role Phone Pam Walters MD Primary Care Provider Encounter Details Date Type Department Care Team Description 07/30/2010 Therapy Visit [facility] for Elisabeth Stahl, Achilles bursitis or Athletic Medicine - PT tendinitis (Primary [facility] E[facility] Dx) Therapy [address] [place] [phone] Social History Tobacco Use Types Packs/Day Years Used Date Smoking Tobacco: Former Cigarettes 1 20 Comments: 07/2008 Alcohol Use Standard Drinks/Week Comments Yes 0 (1 standard drink = 0.6 oz pure alcoho l) very little Sex Assigned at Date Recorded Not on file documented as of this encounter Plan of Treatment Not on filedocumented as of this encounter Procedures Procedure Name Priority Date/Time Associated Diagnosis Comme nts [facility] ULTRASOUND THERAPY Routine 07/30/2010 7:58 AM WAREHOUSE SELECTOR Achilles bursitis or tendinitis [facility] ELECTRIC CURRENT Routine 07/30/2010 7:58 AM WAREHOUSE SELECTOR Achilles b ursitis or THERAPY tendinitis documented in this encounter Visit Diagnoses Diagnosis Achilles bursitis or tendinitis - Primar y documented in this encounter Care Teams Coffee Sommelier Relationship Specialty Start Date End Date Pam Walters MD PCP - General Family Practice 03/12/10 10/10/[address] [address] documented as of this encounter
--- OUTSIDE RECORDS SUMMARY | 2022-07-27 08:45 | XMS_ITS | Encounter Summary ---
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 [place], [place] [address] [address] [place], [place] [phone] (Work) [phone] Social History Tobacco Use Types Packs/Day Years [...] Priority Date/Time Associated Diagnosis Comme nts [facility] MANUAL THER Routine 05/19/2010 5:02 PM Pain in Joint, Pelv ic TECH,1+REGIONS,EA 15 MIN CDT Region and Thigh [facility] NEUROMUSCULAR Routine 05/19/2010 5:02 PM Pain in Joint, Pe lvic RE-EDUCATION CDT Region and Thigh [facility] THERAPEUTIC EXERCISES Routine 05/19/2010 5:02 PM Pain in J oint, Pelvic CDT Region and Thigh documented in this encounter Visit Diagnoses Diagnosis Pain in joint, pelvic region and thigh - Primary documented in this encounter Care Teams Miller Helper Distillery Relationship Specialty Start Date End Date Pam Walters MD PCP - General Family Practice 03/12/10 10/10/[address] [address] documented as of this encounter
--- OUTSIDE RECORDS SUMMARY | 2022-07-27 08:45 | XMS_ITS | Encounter Summary ---
:1960 Author Organization [facility] Address [address] [place] [address] Care Team Providers Name Role Phone Pam Walters MD Primary Care Provider Encounter Details Date Type Department Care Team Description 07/06/2010 Therapy Visit [place] for Kelli Tyson, Achilles b ursitis or Athletic Medicine - ATC tendinitis (Primary [facility] EMI [place] LE Dx) Therapy [address] Chandan Hawley 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
--- OUTSIDE RECORDS SUMMARY | 2022-07-27 08:45 | XMS_ITS | Encounter Summary ---
:1960 Author Organization [facility] Address [address] [place] [address] Care Team Providers Name Role Phone Pam Walters MD Primary Care Provider Reason for Visit Reason Comments Neck Pain tripped and fell into a wood en pallett at work yesterday,complains of rt sided neck discomfort Urgent Care Work Comp Encounter Details Date Type Department Care Team Description 03/09/2011 Office Visit [facility] Rebecca Isaac, Neck pain (Primary Dx) Urgent Care Luke Gardner PA-C [address] [phone] [phone] Social History Tobacco Use Types Packs/Day Years Used Date Smoking Tobacco: Former Cigarettes 1 20 Comments: 07/2008 Alcohol Use Standard Drinks/Week Comments Yes 0 (1 standard drink = 0.6 oz pure alcoho l) very little Sex Assigned at Date Recorded Not on file documented as of this encounter Last Filed Vital Signs Vital Sign Reading Time Taken Comments Blood Pressure 130/76 03/09/2011 12:19 PM CDT Pulse 76 03/09/2011 12:19 PM CDT Temperature - - Respiratory Rate - - Oxygen Saturation - - Inhaled Oxygen Concentration - - Weight 144.7 kg (319 lb) 03/09/2011 12:19 PM CDT Height - - Body Mass Index 44.49 02/13/2011 9:12 AM CDT documented in this encounter Progress Notes Ayse Balderas R - 03/09/2011 12:40 PM CDT SUBJECTIVE: Chief Complaint Patient presents with ??? Neck Pain tripped and fell into a wooden pallett at work yesterday,complains of rt sided neck discomfort ??? Urgent Care ??? Work Comp Annalisa Jacob is a 50 year old female presents with a chief complaint of right sided posterior neck pain since she triped and fell onto a pallet yesterday. She denies any direct trauma to her neck. She landed on her arms on to the waist gwyn pallet. The injury happened while at work. How: as above immediate discomfort, more like stiffness, but thismorning the pain and stiffness were worse. The patient complained of moderate pain and has had decreased ROM. Pain exacerbated by movement. Relieved slightly by ibuprofen. She treated it initially with Ibuprofen. This is the first time this type of injury has occurred to this patient. Past Medical History Diagnosis Date ??? Obesity, unspecified ??? Tobacco use disorder quited in 07/2008 ??? Absence of menstruation surgical menopause ??? Degeneration of intervertebral disc, site unspecified 03/20 MRI, mild DDD, mild bulging L3-4 ??? BCC (basal cell carcinoma) on rt thigh Patient Active Problem List Diagnoses Code ??? OBESITY NOS 278.00 ??? BACKACHE NOS 724.5 ??? PAIN IN LIMB 729.5 ??? Elevated Blood Pressure Reading without Diagnosis of Hypertension 796.2 ??? CARDIOVASCULAR SCREENING; LDL GOAL LESS THAN 160 V81.2LR ??? Achilles bursitis or tendinitis 726.71 ??? Anxiety 300.00E History Substance Use Topics ??? Smoking status: Former Smoker -- 1.0 packs/day for 20 years Types: Cigarettes ??? Smokeless tobacco: Not on file Comment: 07/2008 ??? Alcohol Use: Yes very little ROS: CONSTITUTIONAL:NEGATIVE for fever, chills, change in weight INTEGUMENTARY/SKIN: NEGATIVE for worrisome rashes, moles or lesions MUSCULOSKELETAL: NEGATIVE for significant arthralgias or myalgia EXAM: BP 130/76 Pulse 76 Wt 319 lb (144.697 kg) Gen: healthy,alert,no distress Extremity: neck: no vertebral tenderness. Right sided cervical paraspinous muscle tenderness to palpation. There is not compromise to the distal circulation. Pulses are +2 and LEATHER BELT LOOP CUTTER is brisk GENERAL APPEARANCE: healthy, alert and no distress EXTREMITIES: peripheral pulses normal SKIN: no suspicious lesions or rashes NEURO: Normal strength and tone, sensory exam grossly normal, mentation intact and speech normal X-RAY was done. NO fractures appreciated by me today. 723.1B Neck pain (primary encounter diagnosis) Comment: Plan: X-ray Cervical spine 2-3 vws, ibuprofen (ADVIL,MOTRIN) 800 MG tablet, cyclobenzaprine (FLEXERIL) 5 MG tablet, Acetaminophen-Codeine (TYLENOL/CODEINE #3) 300-30 MG per tablet Ice to area 20 minutes 3-4 times a day prn. F/U with work comp physician should symptoms persist orworsen. Patient expresses understanding and agreement with the assessment and plan as above. documented in this encounter Nursing Notes 03/09/2011 12:15 PM CDT >> DELMER Sauceda Mar 09, 2011 12:21 PM Patient presents with: Neck Pain - tripped and fell into a wooden pallett at work yesterday,complains of rt sided neck discomfort Urgent Care Work Comp Initial BP 130/76 Pulse 76 Wt 319 lb (144.697 kg) Estimated Body mass index is 44.49 kg/(m^2) ascalculated from the following: Height as of 02/13/11: 5' 11(1.803 m). Weight as of this encounter: 319 lb(144.697 kg).. BP completed using cuff size: daniela Jacobo LPN documented in this encounter Plan of Treatment Not on filedocumented as of this encounter Procedures Procedure Name Priority Date/Time Associated Diagnosis Comme nts XR CERVICAL SPINE Routine 03/09/2011 12:52 PM Neck pain Res ults for this 2/3 VIEWS CDT procedure are i n the results section. documented in this encounter Results X-ray Cervical spine 2-3 vws (03/09/2011 12:52 PM CDT) Anatomical Region Laterality Modality Spine Other Specimen (Source) Anatomical Collection Method Collection Time Re ceived Time Location / / Volume Laterality 03/09/2011 12:52 PM CDT Impressions 03/09/2011 1:59 PM CDT CERVICAL SPINE 2-3 VW* ??Mar 09, 2011 12 :52:00 PM HISTORY: ??Pain. Recent fall without dir ect neck trauma. COMPARISON: ??None. IMPRESSION: ??Mild degenerative changes of the mid and lower cervical spine. Loss of normal cervical lordosis which could be due to positioning or spasm. Otherwise negative . Ayse Isaac PA-C [facility] documented in this encounter Visit Diagnoses Diagnosis Neck pain - Primary Cervicalgia documented in this encounter Care Teams Chili Pepper Grinder Relationship Specialty Start Date End Date Pam Walters MD PCP - General Family Practice 03/12/10 10/10/[address] [address] documented as of this encounter
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
--- OUTSIDE RECORDS SUMMARY | 2022-07-27 08:45 | XMS_ITS | Encounter Summary ---
:1960 Author Organization [place] Address [address] [place] [address] Care Team Providers Name Role Phone Pma Walters MD Primary Care Provider Encounter Details Date Type Department Care Team Description 06/29/2010 Therapy Visit [place] for Kelli Tyson, Achilles b ursitis or Athletic Medicine - ATC tendinitis (Primary [place] [facility] [place] Dx) Therapy [address] Chandan [facility] [address] [place] [phone] Social History Tobacco Use Types Packs/Day Years [...] Name Priority Date/Time Associated Diagnosis Comme nts ZC MANUAL THER Routine 06/29/2010 5:05 PM FAMILY SERVICES MANAGER Achilles bursit is or TECH,1+REGIONS,EA 15 tendinitis MIN Z ULTRASOUND THERAPY Routine 06/29/2010 5:05 PM FAMILY SERVICES MANAGER Achilles bursitis or tendinitis Z ELECTRIC CURRENT Routine 06/29/2010 5:05 PM FAMILY SERVICES MANAGER Achilles b ursitis or THERAPY tendinitis documented in this encounter Visit Diagnoses Diagnosis Achilles bursitis or tendinitis - Primar y documented in this encounter Care Teams Hand Stemmer Relationship Specialty Start Date End Date Pam Walters MD PCP - General Family Practice 03/12/10 10/10/[address] [address] documented as of this encounter
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
--- OUTSIDE RECORDS SUMMARY | 2022-07-27 08:45 | XMS_ITS | Encounter Summary ---
:1960 Author Organization [place] Address [address] [place] [address] Care Team Providers Name Role Phone Pam Walters MD Primary Care Provider Reason for Visit Reason Onset Date Comments Chronic Care Conference Provider Overview 01/24/2012 Encounter Details Date Type Department Care Team Description 01/24/2012 Telephone [facility] Pam Walters MD Chronic Care Conference Clinic [facility] Provider Overview [address] [address] [place], [place] [phone] (Wo rk) Social History Tobacco Use Types Packs/Day Years Used Date Smoking Tobacco: Former Cigarettes 1 20 Smokeless Tobacco: Never Comments: 07/2008 Alcohol Use Standard Drinks/Week Comments Yes 0 (1 standard drink = 0.6 oz pure alcoho l) very little Sex Assigned at Date Recorded Not on file documented as of this encounter Miscellaneous Notes Telephone Encounter - Britton Johansen - 01/24/2012 12:23 PM CDT Letter for mammogram via [facility] on 01/24/12.Britton Johansen SPECIAL NEEDS BABYSITTER documented in this encounter Plan of Treatment Not on filedocumented as of this encounter Visit Diagnoses Not on filedocumented in this encounter Care Teams Affiliate Marketing Specialist Relationship Specialty Start Date End Date Pam Walters MD PCP - General Family Practice 7/29/10 2/26/[address] [address] documented as of this encounter
--- OUTSIDE RECORDS SUMMARY | 2022-07-27 08:45 | XMS_ITS | Encounter Summary ---
:1960 Author Organization [place] Address [address] [place] [address] Care Team Providers Name Role Phone Pam Walters MD Primary Care Provider Reason for Visit Reason Comments Vaginal Problem itchy x 2 weeks Encounter Details Date Type Department Care Team Description 04/08/2012 Office Visit [facility] Dc Saini Vaginal i rritation Clinic Moe Cordero MD (Primary Dx) [address] [place] [address] Social History Tobacco Use Types Packs/Day Years Used Date Smoking Tobacco: Former Cigarettes 1 20 Smokeless Tobacco: Never Comments: 07/2008 Alcohol Use Standard Drinks/Week Comments Yes 0 (1 standard drink = 0.6 oz pure alcoho l) very little Sex Assigned at Date Recorded Not on file documented as of this encounter Last Filed Vital Signs Vital Sign Reading Time Taken Comments Blood Pressure 144/88 04/08/2012 8:53 AM CDT Pulse 77 04/08/2012 8:53 AM CDT Temperature 36.8 ??C (98.3 ??F) 04/08/2012 8:53 AM CDT Respiratory Rate - - Oxygen Saturation 98% 04/08/2012 8:53 AM CDT Inhaled Oxygen Concentration - - Weight 138.8 kg (306 lb) 04/08/2012 8:53 AM CDT Height 180.3 cm (5' 11) 04/08/2012 8:53 AM CDT Body Mass Index 42.68 04/08/2012 8:53 AM CDT documented in this encounter Progress Notes Dc Saini MD - 04/08/2012 10:35 AM CDT SUBJECTIVE: Annalisa Jacob is a 51 year old female presenting for Vaginal Problem Patient here with concerns of vaginal irritation over the past 2 weeks. She denies any discharge. She denies any dryness or dyspareunia. She feels the vaginal area is irritated and itchy at times. No problems with intercourse. History of hysterectomy and is postmenopausal. No urinary symptoms. Patient reports that she has quit smoking. Her smoking use included Cigarettes. She has a 20 pack-year smoking history. She has never used smokeless tobacco. Past medical and surgical history reviewed. Patient Active Problem List Diagnoses ??? OBESITY NOS ??? BACKACHE NOS ??? PAIN IN LIMB ??? Elevated Blood Pressure Reading without Diagnosis of Hypertension ??? CARDIOVASCULAR SCREENING; LDL GOAL LESS THAN 160 ??? Achilles bursitis or tendinitis ??? Anxiety ??? Tubular adenoma ??? Hyperplastic colon polyp ??? Obesity, Class III, BMI 40-49.9 (morbid obesity) Allergies Allergen Reactions ??? Latex Rash, redness, swelling ??? Penicillins Review of systems: : NEGATIVE for frequency, dysuria, or hematuria OBJECTIVE: BP 144/88 Pulse 77 Temp(Src) 98.3 ??F (36.8 ??C) (Oral) Ht 5' 11 (1.803 m) Wt 306 lb (138.801 kg) BMI 42.68 kg/m2 SpO2 98% GENERAL APPEARANCE: alert, no distress : normal cervix, adnexae, and uterus without masses or discharge, labia with slight erythema and irritation, no discharge Wet prep normal ASSESSMENT/PLAN: Vaginal irritation (primary encounter diagnosis) Comment: Plan: Wet prep External vaginal irritation. Discussed using good hygiene. Consider OTC hydrocortisone 1% or 1-2 weeks. Return for follow-up with SEAMLESS TUBE DRAWER if not improving. documented in this encounter Nursing Notes 04/08/2012 8:45 AM CDT >> MACIEL HENNING Sat Apr 08, 2012 8:57 AM Patient presents with: Vaginal Problem - itchy x 2 weeks Initial BP 144/88 Pulse 77 Temp(Src) 98.3 ??F (36.8 ??C) (Oral) Ht 5' 11 (1.803 m) Wt 306 lb (138.801 kg) BMI 42.68 kg/m2 SpO2 98% Estimated Body mass index is 42.68 kg/(m^2) as calculatedfrom the following: Height as of this encounter: 5' 11(1.803 m). Weight as of this encounter: 306 lb(138.801 kg).. BP completed using cuff size: daniela Friedman Lb, HEATING UNIT INSTALLER documented in this encounter Plan of Treatment Not on filedocumented as of this encounter Procedures Procedure Name Priority Date/Time Associated Diagnosis Comme nts WET PREPARATION Routine 04/08/2012 8:45 AM Vaginal irritation Results for this CDT procedure are i n the results section. documented in this encounter Results Wet prep (04/08/2012 8:45 AM CDT) [facility] Method Time Signature Specimen Vagina SELF [place] Description COLLECT [facility] Wet Prep No Trichomonas seen [place] No clue cells seen [place] No yeast seen CLINIC LAB Micro Report FINAL THENDARA Status 04/08/2012 [facility] Specimen Anatomical Collection Method Collection Time Receive d Time (Source) Location / / Volume Laterality 04/08/2012 8:45 AM 2 8:46 CDT AM CDT Dc Saini MD LAB - MICRO GENERAL ORDERABL ES Performing Organization Address City/State/ZIP Code Phon e Number [facility] [address] [place] [address] [facility] documented in this encounter Visit Diagnoses Diagnosis Vaginal irritation - Primary Unspecified noninflammatory disorder of vagina documented in this encounter Care Teams Garbage Stoker Relationship Specialty Start Date End Date Pam Walters MD PCP - General Family Practice 03/12/10 10/10/13 [facility] [address] [place], [place] [id number] documented as of this encounter
--- OUTSIDE RECORDS SUMMARY | 2022-07-27 08:45 | XMS_ITS | Encounter Summary ---
:1960 Author Organization [place] Address [address] [place] [address] Care Team Providers Name Role Phone Pam Walters MD Primary Care Provider Encounter Details Date Type Department Care Team Description 06/17/2010 Therapy Visit [place] for Elisabeth Stahl, Achilles bursitis or Athletic Medicine - PT tendinitis (Primary [place] [facility] Dx) Therapy [address] [place] [phone] Social History Tobacco Use Types Packs/Day Years Used Date Smoking Tobacco: Former Cigarettes 1 20 Comments: 07/2008 Alcohol Use Standard Drinks/Week Comments Yes 0 (1 standard drink = 0.6 oz pure alcoho l) very little Sex Assigned at Date Recorded Not on file documented as of this encounter Progress Notes Elisabeth Stahl - 06/17/2010 8:15 AM CDT Subjective: Annalisa Jacob is a 49 year old female with a left ankle condition. Condition occurred with: Repetition/overuse. Condition occurred: for unknown reasons. This is a recurrent condition 3 weeks ago. Patient reports pain: Posterior. Radiates to: No radiation. Pain is described as sharp and aching and is constant and reported as 2/10. Associated symptoms: Loss of motion/stiffness. Pain is the same all the time. Symptoms are exacerbated by activity, walking, descending stairs and ascending stairs and relieved by rest and ice. Since onset symptoms are gradually improving. Previous treatment includesphysical therapy. There was moderate improvement following previous treatment. Pertinent medical history includes: Osteoarthritis, implanted device, overweight and menopausal. Medical allergies: yes (PCN). Other surgeries include: Orthopedic surgery (01/01/10 R TKA). Current medications: Anti-inflammatory. 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 Primary job tasks include: Prolonged sitting and repetitive tasks. Barriers include: Bathroom/bedroom on second floor and stairs. Red flags: None as reported by patient. Objective: System Ankle/Foot Evaluation ROM: AROM is normal. Strength is normal. LIGAMENT TESTING: not assessed SPECIAL TESTS: not assessed PALPATION: Left ankle tenderness present at: achilles tendon EDEMA: normal MOBILITY TESTING: not assessed FUNCTIONAL TESTS: not assessed General ROS Assessment/Plan: Patient is a 49 year old female with left ankle complaints. Patient has the following significant findings with corresponding treatment plan. Diagnosis 1: L achilles tendonitis Pain - US, manual therapy, self management, education and home program Decreased ROM/flexibility - manual therapy and therapeutic exercise Decreased strength - therapeutic exercise and therapeutic activities Previous and current functional limitations: (See Goal Flow Sheet for this information) Short term and group home goals: (See Goal Flow Sheet for this [...] Rehab potential is good. Frequency: 2 X week Duration: for 6 weeks Discharge Plan: Achieve all LTG. Independent in home treatment program. Reach maximal therapeutic benefit. Please refer to the daily flowsheet for treatment today, total treatment time and time spent performing 1:1 timed codes. documented in this encounter Plan of Treatment Not on filedocumented as of this encounter Procedures Procedure Name Priority Date/Time Associated Diagnosis Comme nts [facility] ULTRASOUND THERAPY Routine 06/17/2010 8:21 AM CDT Achilles bursitis or tendinitis [facility] ELECTRIC CURRENT Routine 06/17/2010 8:21 AM CDT Achilles b ursitis or THERAPY tendinitis documented in this encounter Visit Diagnoses Diagnosis Achilles bursitis or tendinitis - Primar y documented in this encounter Care Teams Shucker Relationship Specialty Start Date End Date Pam Walters MD PCP - General Family Practice 03/12/10 10/10/[address] [address] documented as of this encounter
--- OUTSIDE RECORDS SUMMARY | 2022-07-27 08:45 | XMS_ITS | Encounter Summary ---
:1960 Author Organization [place] Address [address] [place] [address] Care Team Providers Name Role Phone Pam Walters MD Primary Care Provider Encounter Details Date Type Department Care Team Description 07/13/2010 Therapy Visit [place] for Kelli Tyson, Achilles b ursitis or Athletic Medicine - ATC tendinitis (Primary [place] [facility] [place] Dx) Therapy [address] Chandan Hawley [facility] [address] [place] [phone] Social History Tobacco Use Types Packs/Day Years [...] Diagnosis Comme nts Z MANUAL THER Routine 07/13/2010 5:34 PM ARC AIR OPERATOR Achilles bursit is or TECH,1+REGIONS,EA 15 tendinitis MIN Z ULTRASOUND THERAPY Routine 07/13/2010 5:34 PM ARC AIR OPERATOR Achilles bursitis or tendinitis Z ELECTRIC CURRENT Routine 07/13/2010 5:34 PM ARC AIR OPERATOR Achilles b ursitis or THERAPY tendinitis documented in this encounter Visit Diagnoses Diagnosis Achilles bursitis or tendinitis - Primar y documented in this encounter Care Teams Senior Marketing Coordinator Relationship Specialty Start Date End Date Pam Walters MD PCP - General Family Practice 03/12/10 10/10/[address] [address] documented as of this encounter
--- OUTSIDE RECORDS SUMMARY | 2022-07-27 08:45 | XMS_ITS | Encounter Summary ---
:1960 Author Organization [place] Address [facility] [place] [address] Care Team Providers Name Role Phone Pam Walters MD Primary Care Provider Reason for Referral Referral not Required - Closed Specialty Diagnoses / Procedures Referred By Contact Refer red To Contact Diagnoses SI (sacroiliac) joint dysfunction Meme Roth, [facility] [address] [place] [address] [place] [address] [place] [address] Phone: [phone] Referral ID Status Reason Start Date Expiration Date Visits Requ ested Visits Authorized [id number] Closed 05/23/2012 11/19/2012 1 1 Reason for Visit Reason Onset Date Comments EMI Orders 05/23/2012 Encounter Details Date Type Department Care Team Description 05/23/2012 Telephone [facility] Cameron Roth IAM Orders [facility] NESTOR PRANEETH, [facility] [address] [facility] [place] [phone] [place] [address] DR[address] [phone] [place] [address] (Wo rk) Social History Tobacco Use Types Packs/Day Years Used Date Smoking Tobacco: Former Cigarettes 1 20 Smokeless Tobacco: Never Comments: 07/2008 Alcohol Use Standard Drinks/Week Comments Yes 0 (1 standard drink = 0.6 oz pure alcoho l) very little Sex Assigned at Date Recorded Not on file documented as of this encounter Miscellaneous Notes Telephone Encounter - Laura Broussard - 05/23/2012 3:27 PM CDT PAtient would like to hold off on the SI joint injection and try PT first. Order placed. Laura Nickerson ATC documented in this encounter Plan of Treatment Scheduled Referrals Name Type Priority Associated Diagnoses Order S chedule EMI PT, HAND, AND Referral Routine SI (sacroiliac) joint O rdered: 05/23/2012 CHIROPRACTIC REFERRAL dysfunction documented as of this encounter Visit Diagnoses Diagnosis SI (sacroiliac) joint dysfunction - Prim kali Disorders of sacrum documented in this encounter Care Teams Meter Technician Relationship Specialty Start Date End Date Pam Walters MD PCP - General Family Practice 03/12/10 10/10/[address] [address] documented as of this encounter
--- OUTSIDE RECORDS SUMMARY | 2022-07-27 08:45 | XMS_ITS | Encounter Summary ---
:1960 Author Organization [place] Address [address] [place] [address] Care Team Providers Name Role Phone Pam Walters MD Primary Care Provider Encounter Details Date Type Department Care Team Description 06/25/2010 Therapy Visit [place] for Elisabeth Stahl, Achilles bursitis or Athletic Medicine - PT tendinitis (Primary [facility] Dx) Therapy [address] [place] [phone] Social History Tobacco Use Types Packs/Day Years [...] Name Priority Date/Time Associated Diagnosis Comme nts [facility] MANUAL THER Routine 06/25/2010 7:56 AM MULTIMEDIA AUTHOR Achilles bursit is or TECH,1+REGIONS,EA 15 tendinitis MIN Z ULTRASOUND THERAPY Routine 06/25/2010 7:56 AM MULTIMEDIA AUTHOR Achilles bursitis or tendinitis Z ELECTRIC CURRENT Routine 06/25/2010 7:56 AM MULTIMEDIA AUTHOR Achilles b ursitis or THERAPY tendinitis documented in this encounter Visit Diagnoses Diagnosis Achilles bursitis or tendinitis - Primar y documented in this encounter Care Teams Payment Specialist Relationship Specialty Start Date End Date Pam Walters MD PCP - General Family Practice 03/12/10 10/10/[address] [address] documented as of this encounter
--- OUTSIDE RECORDS SUMMARY | 2022-07-27 08:45 | XMS_ITS | Encounter Summary ---
:1960 Author Organization [place] Address [address] [place] [address] Care Team Providers Name Role Phone Pam Walters MD Primary Care Provider Reason for Visit (Routine) - Closed Specialty Diagnoses / Procedures Referred By Contact Refer red To Contact Radiology Diagnoses SCREENING BILATERAL-DIGITAL Procedure Notes: Routine Breast [facility] Procedures RADIOLOGY [address] [facility] [place], [address] [place], [place] [address] Phone: Fax: Referral ID Status Reason Start Date Expiration Date Visits Requ ested Visits Authorized [id number] Closed 01/27/2012 01/26/2013 1 1 Encounter Details Date Type Department Care Team Description 02/07/2012 Hospital Encounter [facility] Pam Walters MD Other screening [facility] mammogram Center CLINIC [address] [place] [address], [address] [place] [phone] Social History Tobacco Use Types Packs/Day Years [...] capsule taking 3000 mg total per day Cazdovfurqe-Wdjmkmxdn-Vgt Take by mouth. 0 2011 C-Mn (GLUCOSAMINE 1500 COMPLEX) CAPS ibuprofen (ADVIL,MOTRIN) Take 1 tablet by 100 tablet 0 03/09 800 MG tabletIndications: mouth every 8 Neck pain hours as needed for pain. MULTI-VITAMIN OR TABS ONE TABLET DAILY 3 12/18/19 10 cetirizine (ZYRTEC) 10 MG Take 1 tablet by 0 10/1403/16/2013 tablet mouth every evening. NO ACTIVE MEDICATIONS . 0 0 12/04/2008 documented as of this encounter Plan of Treatment Not on filedocumented as of this encounter Procedures Procedure Name Priority Date/Time Associated Diagnosis Comme nts MA SCREENING Routine 02/07/2012 3:18 PM Other screening Result s for this DIGITAL BILATERAL CDT mammogram procedure are in the results section. documented in this encounter Results Mammo Screening digital (bilat) (02/07/2012 3:18 PM CDT) Anatomical Region Laterality Modality Breast Bilateral Mammography Specimen (Source) Anatomical Collection Method Collection Time Re ceived Time Location / / Volume Laterality 02/07/2012 3:18 PM CDT Impressions 02/07/2012 3:47 PM CDT SCREENING MAMMOGRAM, BILATERAL, DIGITAL w/CAD BREAST SYMPTOMS/COMPARISON: 02/04/2011, 09/12/2007 BREAST PARENCHYMAL PATTERN: Heterogeneou sly dense. which could obscure detection of small masses FINDINGS: Negative. Screening exam in on e year recommended. IMPRESSION: BI-RADS 1, NEGATIVE. Pam Walters MD IMG MAMMOGRAPHY ORDERABLES documented in this encounter Visit Diagnoses Diagnosis Other screening mammogram documented in this encounter Care Teams Manager Car Relationship Specialty Start Date End Date Pam Walters MD PCP - General Family Practice 03/12/10 10/10/[address] [address] documented as of this encounter
--- OUTSIDE RECORDS SUMMARY | 2022-07-27 08:45 | XMS_ITS | Encounter Summary ---
:1960 Author Organization [place] Address [address] [place] [address] Care Team Providers Name Role Phone Pam Walters MD Primary Care Provider Encounter Details Date Type Department Care Team Description 07/23/2010 Therapy Visit [place] for Athletic Dotty Gonzalez Ac hilles bursitis or Medicine [facility] ACCOUNT RESOLUTION SPECIALIST tendin itis (Primary Physical Therapy Dx) [address] [facility]. [address] [place] [phone] Social History Tobacco Use Types Packs/Day Years [...] Diagnosis Comme nts [facility] MANUAL THER Routine 07/23/2010 8:56 AM Achilles bursitis o r TECH,1+REGIONS,EA 15 MIN DURAL MECHANIC tendinitis [facility] THERAPEUTIC Routine 07/23/2010 8:56 AM Achilles bursitis o r ACTIVITIES DURAL MECHANIC tendinitis [facility] ULTRASOUND THERAPY Routine 07/23/2010 8:56 AM Achilles bur sitis or DURAL MECHANIC tendinitis documented in this encounter Visit Diagnoses Diagnosis Achilles bursitis or tendinitis - Primar y documented in this encounter Care Teams Mechanical Developer Prover Relationship Specialty Start Date End Date Pam Walters MD PCP - General Family Practice 03/12/10 10/10/[address] [address] documented as of this encounter
--- OUTSIDE RECORDS SUMMARY | 2022-07-27 08:45 | XMS_ITS | Encounter Summary ---
:1960 Author Organization [facility] Address [address] [place] [address] Care Team Providers Name Role Phone Pam Walters MD Primary Care Provider Encounter Details Date Type Department Care Team Description 05/21/2010 Therapy Visit [place] for Elisabeth Stahl, Pain in j oint, pelvic Athletic Medicine - PT region and thigh [place] [facility] (Primary Dx) Therapy [address] [place] [phone] Social History Tobacco Use Types Packs/Day Years [...] Diagnosis Comme nts [facility] MANUAL THER Routine 05/21/2010 9:01 AM Pain in Joint, Pelv ic TECH,1+REGIONS,EA 15 MIN CDT Region and Thigh [facility] NEUROMUSCULAR Routine 05/21/2010 9:01 AM Pain in Joint, Pe lvic RE-EDUCATION CDT Region and Thigh [facility] THERAPEUTIC EXERCISES Routine 05/21/2010 9:01 AM Pain in J oint, Pelvic CDT Region and Thigh documented in this encounter Visit Diagnoses Diagnosis Pain in joint, pelvic region and thigh - Primary documented in this encounter Care Teams Radio Machinist Relationship Specialty Start Date End Date Pam Walters MD PCP - General Family Practice 03/12/10 10/10/[address] [address] documented as of this encounter
--- OUTSIDE RECORDS SUMMARY | 2022-07-27 08:45 | XMS_ITS | Encounter Summary ---
:1960 Author Organization [place] Address [address] [place] [address] Care Team Providers Name Role Phone Pam Walters MD Primary Care Provider Encounter Details Date Type Department Care Team Description 12/03/2011 Orders Only [facility] Pam Walters MD DIAGNOSIS NOT YET Clinic [facility] DEFINED (Primary Dx) [address] [phone] [place] [address] Social History Tobacco Use Types [...] Priority Date/Time Associated Diagnosis Comme nts [facility] CANC SCRN,COLONOSCPY HI Routine 12/03/2011 RISK documented in this encounter Results [facility] CANC SCRN,COLONOSCPY HI RISK (12/03/2011) Narrative This result has an attachment that is no t available. Pam Walters MD PROCEDURES documented in this encounter Visit Diagnoses Diagnosis DIAGNOSIS NOT YET DEFINED - Primary documented in this encounter Care Teams Train Master Relationship Specialty Start Date End Date Pam Walters MD PCP - General Family Practice 03/12/10 10/10/[address] [address] documented as of this encounter
--- OUTSIDE RECORDS SUMMARY | 2022-07-27 08:45 | XMS_ITS | Encounter Summary ---
:1960 Author Organization [facility] Address [address] [place] [address] Care Team Providers Name Role Phone Pam Walters MD Primary Care Provider Reason for Visit Reason Comments Knee left pain months, increased in st week. Encounter Details Date Type Department Care Team Description 05/26/2010 Office Visit [facility] Roth n (Primary Dx) Orthopedic MD Dipti [facility] ORTHOPEDICS [address] [place] [phone] Social History Tobacco Use Types Packs/Day Years Used Date Smoking Tobacco: Former Cigarettes 1 20 Comments: 07/2008 Alcohol Use Standard Drinks/Week Comments Yes 0 (1 standard drink = 0.6 oz pure alcoho l) very little Sex Assigned at Date Recorded Not on file documented as of this encounter Last Filed Vital Signs Vital Sign Reading Time Taken Comments Blood Pressure 123/70 05/26/2010 3:04 PM CDT Pulse - - Temperature - - Respiratory Rate - - Oxygen Saturation - - Inhaled Oxygen Concentration - - Weight - - Height - - Body Mass Index - - documented in this encounter Progress Notes Meme Roth - 05/26/2010 3:05 PM CDT SUBJECTIVE: Annalisa Jacob is a 49 year old female who is seen as self referral for left knee pain that started months ago. Onset: unknown, but began after having TKA on right knee Immediate symptoms: insidious onset of pain, no locking, no instability, no deformity was noted by the patient. Recent worsening after an incident in the pool doing bicycle kicks when she felt something slide. Had severe pain and some swelling. This has improved with ice and rest. Mitigating Factors: Nothing Symptoms have been worsening since that time. Prior history of related problems: chronic knee pain. Patients past medical, surgical, social and family histories reviewed. Past medical history notable for: reviewed on the up to date problem list in the chart REVIEW OF SYSTEMS: CONSTITUTIONAL:NEGATIVE for fever, chills, change in weight INTEGUMENTARY/SKIN: NEGATIVE for worrisome rashes, moles or lesions MUSCULOSKELETAL:See HPI above NEURO: NEGATIVE for weakness, dizziness or paresthesias BP 123/70 EXAM: GENERAL APPEARANCE: healthy, alert and no distress GAIT: antalgic SKIN: no suspicious lesions or rashes NEURO: Normal strength and tone, mentation intact and speech normal PSYCH: mentation appears normal and affect normal/bright MUSCULOSKELETAL: LEFT KNEE Inspection: AP/lateral alignment normal, small effusion, No quad atrophy Tender: lateral patellar facet, medial patellar facet Non-tender: inferior pole patella, patella tendon, quadriceps insertion, MCL, LCL, lateral joint line, medial joint line Active Range of Motion: full flexion, full extension, Patellofemoral crepitus with extension Strength: quad 5/5, Hamstrings 5/5, Gastroc 5/5, Tibialis anterior 5/5 and Peroneals 5/5 Special tests: normal Valgus stress test, normal Varus, negative Gucci's test, negative posterior drawer, no posterolateral corner signs, positive hyperflexion external rotation test, negative Avila's , mild apprehension with lateral stress of the patella Also examined: hip full range of motion, foot strong dorsalis pedis pulse RIGHT KNEE: Inspection: AP/lateral alignment normal Non-tender: patellar facets, MCL, LCL, lateral joint line, medial joint line, IT band, posterior knee Active Range of Motion: all normal Strength: quad 5/5, Hamstrings 5/5, Gastroc 5/5, Tibialis anterior 5/5, Permeals 5/5 and core strength 5/5 hip abductors and other core muscles Special tests: normal Valgus stress test, normal Varus, negative Gucci's test, negative pivot shift, negative posterior drawer, no posterolateral corner signs, negative Avila's, no apprehension with lateral stress of the patella. 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 Recommended continuing with pool workouts. Continue with core and hip strengthening exercises given in PT. Ice. Continue with the knee brace.F/u prn continued pain. X-RAY INTERPRETATION: X-Ray of the Left Knee: 3-view, Leone lateral, sunrise ordered and interpreted in the office today was positive for mild patellofemoral, lateral and medial compartment degenerative changes, right knee TKA. documented in this encounter Nursing Notes 05/26/2010 3:00 PM CDT >> Fredrick Weeks May 26, 2010 3:06 PM Patient presents with: Knee left - pain months, increased in last week. Initial BP 123/70 Estimated Body mass index is 40.69 kg/(m^2) as calculated from the following: Height as of 05/08/10: 6' 0(1.829 m). Weight as of 05/08/10: 300 lb(136.079 kg).. BP completed using cuff size: large documented in this encounter Plan of Treatment Scheduled Orders Name Type Priority Associated Diagnoses Order S chedule Knee - Standing AP Imaging Routine Knee Pain Ordered: 05/26/2010 Knee - Left Imaging Routine Knee pain Ordered: 2009 documented as of this encounter Visit Diagnoses Diagnosis Knee pain - Primary Pain in joint, lower leg documented in this encounter Care Teams Singer Songwriter Relationship Specialty Start Date End Date Pam Walters MD PCP - General Family Practice 03/12/10 10/10/[address] [address] documented as of this encounter
--- OUTSIDE RECORDS SUMMARY | 2022-07-27 08:45 | XMS_ITS | Encounter Summary ---
:1960 Author Organization [place] Address [address] [place] [address] Care Team Providers Name Role Phone Pam Walters MD Primary Care Provider Reason for Referral - Closed Specialty Diagnoses / Procedures Referred By Contact Refer red To Contact Diagnoses Pain in limb Achilles bursitis or tendinitis Isai Bunn DPM [address] [place] [address] Referral ID Status Reason Start Date Expiration Date Visits Requ ested Visits Authorized [id number] Closed 06/10/2010 06/10/2010 1 1 Reason for Visit Reason Comments Musculoskeletal Problem left achilles pain with swel ling. Ongoing issue for pt. Past PT helped. Encounter Details Date Type Department Care Team Description 06/10/2010 Office Visit [facility] Isai Bunn Pain i n soft tissues of limb; Orthopedic F, DPM Achilles bursitis or tendinitis [facility] [address] Pod[facility]ry [address] [place] [address] [place], [place] [phone] (Work) [phone] Social History Tobacco Use Types Packs/Day Years Used Date Smoking Tobacco: Former Cigarettes 1 20 Comments: 07/2008 Alcohol Use Standard Drinks/Week Comments Yes 0 (1 standard drink = 0.6 oz pure alcoho l) very little Sex Assigned at Date Recorded Not on file documented as of this encounter Last Filed Vital Signs Vital Sign Reading Time Taken Comments Blood Pressure 122/78 06/10/2010 1:43 PM CDT Pulse 68 06/10/2010 1:43 PM CDT Temperature - - Respiratory Rate - - Oxygen Saturation - - Inhaled Oxygen Concentration - - Weight - - Height - - Body Mass Index - - documented in this encounter Progress Notes Isai Bunn F - 06/10/2010 2:57 PM CDT Subjective: Patient is seen today as a f/u pt with a several month hx of slowly resolving lt heel/ achilles tendon pain. Yet this has caused an increase in swelling on her rt foot. Yet specifically no pain. Denieshistory of trauma. Has tried changing shoewear, OTC inserts, and NSAIDS without much success. Some initial improvement w/ PT last year. PMH, meds, all, PSH, PFH, and soc hx were reviewed REVIEW OF SYSTEMS: CONSTITUTIONAL:NEGATIVE for fever, chills, change in weight INTEGUMENTARY/SKIN: NEGATIVE for worrisome rashes, moles or lesions MUSCULOSKELETAL:See HPI above NEURO: NEGATIVE for weakness, dizziness or paresthesias Objective: Pulses are palpable +2/4 DP & PT bilateral. Sensation to light touch is intact. Muscle strength and ROM is within normal limits. No sign of ulceration, infection, or drainage noted. Upon weightbearing there is an increase in the medial longitudinal arch b/l. Mild pain upon palpation to the insertion of the achilles tendon on lt. Mild gastrocnemius equinus noted b/l. Mild edema noted to rt foot, yet negative exam today. X-rays were reviewed 3 views rt foot non-weightbearing which show no sign of osseous pathology. Assessment: Insertional achilles tendonitis lt Pes cavus foot type b/l Gastrocnemius equinus b/l OA rt foot Plan: Discussed etiology and treatment options with the patient. Recommended modifying activities, supportive shoes, ice, stretching, and not going barefoot. Unable to use CAM boot immobilization d/t rt TKA. Re-order PT w/ iontophoresis and offered Rx for Medrol, yet pt denies. F/U 3-4 wks. documented in this encounter Nursing Notes 06/10/2010 1:30 PM CDT >> SAM LEÓN Wed Jun 10, 2010 1:46 PM Patient presents with: Musculoskeletal Problem - left achilles pain with swelling. Ongoing issue for pt. Past PT helped. Initial BP 122/78 Pulse 68 Estimated Body mass index is 40.69 kg/(m^2) as calculated from the following: Height as of 05/08/10: 6' 0(1.829 m). Weight as of 05/08/10: 300 lb(136.079 kg). bp completed using cuff size: large right Sam León CMA documented in this encounter Plan of Treatment Scheduled Referrals Name Type Priority Associated Diagnoses Order S chedule EMI PHYSICAL THERAPY Referral Routine Pain in soft tissues of Ordered: 06/10/2010 REFERRAL limb Achilles bursitis or tendinitis documented as of this encounter Visit Diagnoses Diagnosis Pain in limb Achilles bursitis or tendinitis documented in this encounter Care Teams Vice President Global Advertising Sales Relationship Specialty Start Date End Date Pam Walters MD PCP - General Family Practice 03/12/10 10/10/13 [place] [address] documented as of this encounter
--- OUTSIDE RECORDS SUMMARY | 2022-07-27 08:45 | XMS_ITS | Encounter Summary ---
:1960 Author Organization [place] Address [address] [place] [address] Care Team Providers Name Role Phone Pam Walters MD Primary Care Provider Encounter Details Date Type Department Care Team Description 07/16/2010 Therapy Visit [place] for Elisabeth Stahl, Achilles bursitis or Athletic Medicine - PT tendinitis (Primary [facility] Dx) Therapy [address] [place] [phone] Social History Tobacco Use Types Packs/Day Years [...] Name Priority Date/Time Associated Diagnosis Comme nts [facility] ULTRASOUND THERAPY Routine 07/16/2010 8:05 AM MANAGER SHIPPING Achilles bursitis or tendinitis [facility] ELECTRIC CURRENT Routine 07/16/2010 8:05 AM MANAGER SHIPPING Achilles b ursitis or THERAPY tendinitis documented in this encounter Visit Diagnoses Diagnosis Achilles bursitis or tendinitis - Primar y documented in this encounter Care Teams Business Solutions Director Relationship Specialty Start Date End Date Pam Walters MD PCP - General Family Practice 03/12/10 10/10/[address] [address] documented as of this encounter
--- OUTSIDE RECORDS SUMMARY | 2022-07-27 08:45 | XMS_ITS | Encounter Summary ---
:1960 Author Organization [facility] Address [address] [place] [address]. [place] [address] Care Team Providers Name Role Phone Pam Walters MD Primary Care Provider Reason for Referral Office Workup No CT/MRI - Closed Specialty Diagnoses / Procedures Referred By Contact Refer red To Contact Diagnoses Obesity Dc Saini MD UNKNOWN- [address] [place] [address] Referral ID Status Reason Start Date Expiration Date Visits Requ ested Visits Authorized [id number] Closed 02/13/2011 08/12/2011 1 1 Reason for Visit Reason Comments Derm Problem inside of both elbows, start ed about 2 weeks ago Encounter Details Date Type Department Care Team Description 02/13/2011 Office Visit [facility] Dc Saini Skin rash (Primary Dx); Clinic Moe Cordero MD Obesity [address] [place] [phone] Social History Tobacco Use Types Packs/Day Years Used Date Smoking Tobacco: Former Cigarettes 1 20 Comments: 07/2008 Alcohol Use Standard Drinks/Week Comments Yes 0 (1 standard drink = 0.6 oz pure alcoho l) very little Sex Assigned at Date Recorded Not on file documented as of this encounter Last Filed Vital Signs Vital Sign Reading Time Taken Comments Blood Pressure 122/76 02/13/2011 9:12 AM CDT Pulse 78 02/13/2011 9:12 AM CDT Temperature 37 ??C (98.6 ??F) 02/13/2011 9:12 AM CDT Respiratory Rate - - Oxygen Saturation 97% 02/13/2011 9:12 AM CDT Inhaled Oxygen Concentration - - Weight 141.7 kg (312 lb 4.8 oz) 02/13/2011 9:12 AM CDT Height 180.3 cm (5' 11) 02/13/2011 9:12 AM CDT Body Mass Index 43.56 02/13/2011 9:12 AM CDT documented in this encounter Progress Notes Dc Saini - 02/13/2011 9:30 AM CDT SUBJECTIVE: Annalisa Jacob is a 50 year old female presenting for rash. Rash over 2 weeks duration. Location: arms Character: red Pruritis: Yes Progression of symptoms: staying the same and fluctuating Previous therapy: nothing Similar previous rash: No Previous dermatology consultation: Yes, for other rash issues Other contacts with similar rash: others with ringworm at work Recent travel: No Exposure to allergens: None Fever: No Sore throat/ signs of illness: No Myalgia/Arthralgia: No Patient reports that she has quit smoking. Her smoking use included cigarettes. She has a 20 pack-year smoking history. She does not have any smokeless tobacco history on file. Problem list and past medical and surgical history reviewed. Review of systems: As above otherwise negative OBJECTIVE: BP 122/76 Pulse 78 Temp(Src) 98.6 ??F (37 ??C) (Oral) Ht 5' 11 (1.803 m) Wt 312 lb 4.8 oz (141.658 kg) BMI 43.56 kg/m2 SpO2 97% GENERAL APPEARANCE: no distress, obese SKIN: erythema - arms bilaterally in elbow flexor crease ASSESSMENT/PLAN: 782.1Z Skin rash (primary encounter diagnosis) Comment: Plan: triamcinolone (KENALOG) 0.1 % cream Likely atopic dermatitis or contact dermatitis - treat with topical CS. Consider tinea if not improving and discussed using OTC lamisil next week if rash not resolving. 278.00J Obesity Comment: Plan: NUTRITION REFERRAL Discussed improving diet, eating fruits, vegetables, and whole grains, as well as increasing physical activity to 150 minutes of moderate physical activity weekly. documented in this encounter Nursing Notes 02/13/2011 9:15 AM CDT >> YOON GATES [facility] Feb 13, 2011 9:14 AM Patient presents with: Derm Problem - inside of both elbows, started about 2 weeks ago Initial BP 122/76 Pulse 78 Temp(Src) 98.6 ??F (37 ??C) (Oral) Ht 5' 11 (1.803 m) Wt 312 lb 4.8 oz (141.658 kg) BMI 43.56 kg/m2 SpO2 97% Estimated Body mass index is 43.56 kg/(m^2) as calculated from the following: Height as of this encounter: 5' 11(1.803 m). Weight as of this encounter: 312 lb 4.8 oz(141.658 kg).. BP completed using cuff size: large Yoon August FRUIT DRYER documented in this encounter Plan of Treatment Scheduled Referrals Name Type Priority Associated Diagnoses Order S chedule NUTRITION REFERRAL Referral Routine Obesity Ordered: 02/13/2011 documented as of this encounter Visit Diagnoses Diagnosis Skin rash - Primary Rash and other nonspecific skin eruption Obesity Obesity, unspecified documented in this encounter Care Teams Vrt Mechanic Relationship Specialty Start Date End Date Pam Walters MD PCP - General Family Practice 03/12/10 10/10/[address] [address] documented as of this encounter
--- OUTSIDE RECORDS SUMMARY | 2022-07-27 08:45 | XMS_ITS | Encounter Summary ---
:1960 Author Organization [facility] Address [address] [place] [address] Care Team Providers Name Role Phone Pam Walters MD Primary Care Provider Reason for Visit Reason Comments Hip Pain Left hip Encounter Details Date Type Department Care Team Description 05/19/2012 Office Visit [facility] ([facility]) joint Orthopedic MD Dipti dysfunction (Primary Care-[facility] Dx) Med ORTHOPEDICS [address] [place] [phone] Social History Tobacco Use Types Packs/Day [...] Sign Reading Time Taken Comments Blood Pressure 134/82 05/19/2012 9:02 AM CDT Pulse - - Temperature - - Respiratory Rate - - Oxygen Saturation - - Inhaled Oxygen Concentration - - Weight 138.8 kg (306 lb) 05/19/2012 9:02 AM CDT Height 180.3 cm (5' 11) 05/19/2012 9:02 AM CDT Body Mass Index 42.68 05/19/2012 9:02 AM CDT documented in this encounter Patient Instructions Patient InstructionsStDemetria rizzo ATC - 05/19/2012 9:15 AM CDT *Follow up as needed or as discussed with your care provider *See Chart Note for specific details documented in this encounter Progress Meme Gutierres MD - 05/19/2012 9:04 AM CDT SUBJECTIVE: PCP: Pam Walters Darren Jacob is a 51 year old female who is seen as self referral for left hip pain. Injury: Insidious onset Location of Pain: left hip, pain goes through the hip, anterior to posterior, will have radiating pain down the lateral leg to the ankle. Duration of Pain: 2-3 month(s), 2-3 weeks pain has progressed Rating of Pain: 3/10 Pain is better with: Ibuprofen and Rest Pain is worse with: Extended standing or walking, water jog Treatment so far consists of: Ibuprofen and Rest Associated Features: Ache down the leg, throbbing pain in the hip, dull pain, spasm Prior history of related problems: SI dysfunction Patient's past medical, surgical, social and family histories reviewed. Past medical history notablefor: reviewed on the up to date problem list in the chart REVIEW OF SYSTEMS: CONSTITUTIONAL:NEGATIVE for fever, chills, change in weight INTEGUMENTARY/SKIN: NEGATIVE for worrisome rashes, moles or lesions MUSCULOSKELETAL:See HPI above NEURO: NEGATIVE for weakness, dizziness or paresthesias BP 134/82 Ht 5' 11 (1.803 m) Wt 306 lb (138.801 kg) BMI 42.68 kg/m2 EXAM: GENERAL APPEARANCE: healthy, alert and no distress GAIT: NORMAL SKIN: no suspicious lesions or rashes NEURO: normal strength and tone, sentation intact, reflexes normal, mentation intact, speech normal,DTR symmetrically normal in upper extremities and DTR symmetrically normal in lower extremities PSYCH: mentation appears normal and affect normal/bright MUSCULOSKELETAL: LEFT HIP: Palpation: Tender: left gluteus medius Non-tender: left greater trochanter, left ASIS, left iliac crest, left proximal hamstring attachment Range of Motion: Left Hip flexion full, extension full, external rotation decreased, painful, over SI joint, internal rotation decreased, painful, in groin, adduction full, abduction full Strength: flexion: 5/5, abduction: 5-/5, adduction: 5/5 Special tests: no crepitation/snapping over central inguinal region, no crepitation/snapping over greater trochanter, logrolling neg, DARREN pos, Irritability (flexion/adduction/internal rotation) pos LUMBAR SPINE: Tender: left SI joint Non-tender: lumbar spinous processes, lumbar facet joints, left para lumbar muscles, right para lumbar muscles, right SI joint Range of Motion: lumbar flexion full, lumbar extension full Strength: able to heel walk, able to toe walk, gastrocsoleus 5/5, hamstrings 5/5, quadriceps 5/5, tibialis anterior 5/5, peroneals 5/5 Special tests: negative straight leg raises, negative facet compression test, positive SI joint compression ASSESSMENT/PLAN: Left hip SI joint dysfunction. Continuing with her pool exercises. Recommended slow increase in activity as tolerated. A left SI joint injection was ordered under fluoro. Recommended f/u 2 weeks after the injection if pain persists to consider further evaluation of her low back. documented in this encounter Nursing Notes 05/19/2012 9:00 AM CDT >> Demetria Alford ATC TueMay 19, 2012 9:09 AM Patient presents with: Hip Pain - Left hip Initial BP 134/82 Ht 5' 11 (1.803 m) Wt 306 lb (138.801 kg) BMI 42.68 kg/m2 Estimated Body mass index is 42.68 kg/(m^2) as calculated from the following: Height as of this encounter: 5' 11(1.803 m). Weight as of this encounter: 306 lb(138.801 kg).. BP completed using cuff size: large Demetria Alford ATC documented in this encounter Plan of Treatment Not on filedocumented as of this encounter Visit Diagnoses Diagnosis SI (sacroiliac) joint dysfunction - Prim kali Disorders of sacrum documented in this encounter Care Teams Marketing Research Coordinator Relationship Specialty Start Date End Date Pam Walters MD PCP - General Family Practice 03/12/10 10/10/[address] [address] documented as of this encounter
--- OUTSIDE RECORDS SUMMARY | 2022-07-27 08:45 | XMS_ITS | Encounter Summary ---
:1960 Author Organization [facility] Address [address] [place] [address] Care Team Providers Name Role Phone Pam Walters MD Primary Care Provider Encounter Details Date Type Department Care Team Description 02/24/2012 Office Visit [facility] Shelia Cowart MD [facility] Ed catherine 3, Sh Wl Diet, RD [address] [facility] [address] [place] [address] Social History Tobacco Use Types Packs/Day Years Used Date Smoking Tobacco: Former Cigarettes 1 20 Smokeless Tobacco: Never Comments: 07/2008 Alcohol Use Standard Drinks/Week Comments Yes 0 (1 standard drink = 0.6 oz pure alcoho l) very little Sex Assigned at Date Recorded Not on file documented as of this encounter Progress Notes Oc Koo, RD - 02/24/2012 4:12 PM CDT MEDICAL WEIGHT LOSS NUTRITION CONSULTATION DIAGNOSIS: Obesity REFERRING MD: Dr. Cowart ANTHROPOMETRICS: Ht: 5' 11 Wt: 310# BMI: 43.2 kg DIET HISTORY: Pt. eats 3 meals and 3 snacks /day except for 1 day on the weekend when she eats a large lunch and skips dinner. Pt. denies issues with emotional, binge and night time eating. Primary beverage choice are: water and black coffee. Rarely dines out. Typical intake: Breakfast- 2 homemade bran muffins with added raisins or oatmeal with milk on the weekend AM Snack- string cheese Lunch- steamed vegetables, Armenian yogurt, fresh fruit PM Snack- light pop corn or fresh fruit Dinner- Low calorie frozen entree or lettuce salad with crushed crackers, light salad dressing, occasional 1/2 can of tuna fish and tomatoes Evening Snack-large slice of cake or bag of M & M's EXERCISE: Swims or does water jogging 5 X /week for 1 hour NUTRITION DIAGNOSIS: Obesity related to excess energy intake as evidenced by current BMI of 43.2 kg/m2 INTERVENTIONS: Discussed portion sizes, value of protein with meals, and meal skipping Determined alternatives to try when craving sweets Reviewed the value of journal food/beverage intake and activity OUTCOMES: Understands food allowances following diet as instructed-verbalized Understands benefit of physical activity-verbalized Demonstrates motivation to comply with diet-verbalized GOALS: 1. Pt.will eat 3 meals/day 2. Pt. will journal food/ beverage intake and activity 3. Pt. will try alternative snacks when craving sweets (ideas provided) FOLLOW-UP: At [address] name and number provided. TIME SPENT WITH PT: 55 minutes documented in this encounter Plan of Treatment Not on filedocumented as of this encounter Visit Diagnoses Not on filedocumented in this encounter Care Teams Rubber Grinder Relationship Specialty Start Date End Date Pam Walters MD PCP - General Family Practice 03/12/10 10/10/[address] [address] documented as of this encounter
--- OUTSIDE RECORDS SUMMARY | 2022-07-27 08:45 | XMS_ITS | Encounter Summary ---
:1960 Author Organization [facility] Address [address] [place] [address] Care Team Providers Name Role Phone Pam Walters MD Primary Care Provider Encounter Details Date Type Department Care Team Description 05/27/2010 Therapy Visit [place] for Elisabeth Stahl, Pain in j oint, pelvic Athletic Medicine - PT region and thigh [place] [facility] (Primary Dx) Therapy [address] [place] [phone] Social History Tobacco Use Types Packs/Day [...] Diagnosis Comme nts [facility] MANUAL THER Routine 05/27/2010 5:32 PM Pain in joint, pelv ic TECH,1+REGIONS,EA 15 MIN CDT region and thigh [facility] THERAPEUTIC Routine 05/27/2010 5:32 PM Pain in joint, pelv ic EXERCISES CDT region and thigh documented in this encounter Visit Diagnoses Diagnosis Pain in joint, pelvic region and thigh - Primary documented in this encounter Care Teams Credit Assistant Relationship Specialty Start Date End Date Pam Walters MD PCP - General Family Practice 03/12/10 10/10/[address] [address] documented as of this encounter
--- OUTSIDE RECORDS SUMMARY | 2022-07-27 08:45 | XMS_ITS | Encounter Summary ---
:1960 Author Organization [facility] Address [address] [place] [address] Care Team Providers Name Role Phone Pam Walters MD Primary Care Provider Encounter Details Date Type Department Care Team Description 06/22/2010 Therapy Visit [place] for Elisabeth Stahl, Achilles bursitis or Athletic Medicine - PT tendinitis (Primary [place] [facility] Dx) Therapy [address] [place] [phone] Social History Tobacco Use Types Packs/Day Years [...] Associated Diagnosis Comme nts [facility] THERAPEUTIC Routine 06/22/2010 7:58 AM Achilles bursitis o r EXERCISES 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
--- OUTSIDE RECORDS SUMMARY | 2022-07-27 08:45 | XMS_ITS | Encounter Summary ---
:1960 Author Organization [facility] Address [address] [place] [address] Care Team Providers Name Role Phone Pam Walters MD Primary Care Provider Encounter Details Date Type Department Care Team Description 08/13/2010 Therapy Visit [place] for Kelli Tyson Achilles b ursitis or Athletic Medicine - ATC tendinitis (Primary [place] [facility] [place] Dx) Therapy [address] Chandan Hawley [facility]. [facility] [address] [place] [phone] Social History Tobacco Use Types Packs/Day Years [...] Diagnosis Comme nts Z MANUAL THER Routine 08/13/2010 11:11 AM Achilles bursitis or TECH,1+REGIONS,EA [address] [facility] ELECTRIC CURRENT Routine 08/13/2010 11:11 AM Achilles burs itis or THERAPY FIRST BEATER tendinitis Z ULTRASOUND THERAPY Routine 08/13/2010 11:11 AM Achilles bu rsitis or FIRST BEATER tendinitis documented in this encounter Visit Diagnoses Diagnosis Achilles bursitis or tendinitis - Primar y documented in this encounter Care Teams Corporate Concierge Relationship Specialty Start Date End Date Pam Walters MD PCP - General Family Practice 03/12/10 10/10/[address] [address] documented as of this encounter
--- OUTSIDE RECORDS SUMMARY | 2022-07-27 08:45 | XMS_ITS | Encounter Summary ---
:1960 Author Organization [facility] Address [address] [place] [address] Care Team Providers Name Role Phone Pam Walters MD Primary Care Provider Encounter Details Date Type Department Care Team Description 06/04/2010 Therapy Visit [place] for Clau Williamson, Pain in joint, pelvic Athletic Medicine - PT region and thigh [place] [facility] [address] (Prima ry Dx) Therapy [address] [place], [place] [address] [address] [place], [place] [phone] (Work) [phone] Social History Tobacco Use Types Packs/Day Years Used Date Smoking Tobacco: Former Cigarettes 1 20 Comments: 07/2008 Alcohol Use Standard Drinks/Week Comments Yes 0 (1 standard drink = 0.6 oz pure alcoho l) very little Sex Assigned at Date Recorded Not on file documented as of this encounter Progress Notes Clau Williamson - 06/04/2010 9:13 AM CDT Subjective: HPI Objective: System Physical Exam General ROS Assessment/Plan: DISCHARGE REPORT Progress reporting period is from 05/14/2010 to 06/04/2010. SUBJECTIVE Subjective changes noted by patient: Significant decrease in low back pain. Flared up left achilles tendon at water exercise. Current Pain level: 0/10. Initial Pain level: 4/10. Changes in function: Yes (See Goal flowsheet attached for changes in current functional level) Adverse reaction to treatment or activity: None OBJECTIVE Changes noted in objective findings: Yes, Full flexibility in hip flexors and lumbar spine. ASSESSMENT/PLAN STG/LTGs have been met or progress has been made towards goals: Yes (See Goal flow sheet completed today.) Assessment of Progress: The patient's condition is improving. Self Management Plans: Patient is independent in a home treatment program. Patient is independent in self management of symptoms. Annalisa continues to require the following intervention to meet STG and LTG's: PT intervention is no longer required to meet STG/LTG. Recommendations: This patient is ready to be discharged from therapy and continue their home treatment program. Please refer to the daily flowsheet for treatment today, total treatment time and time spent performing 1:1 timed codes. documented in this encounter Plan of Treatment Not on filedocumented as of this encounter Procedures Procedure Name Priority Date/Time Associated Diagnosis Comme nts [facility]ZC MANUAL THER Routine 06/04/2010 1:05 PM Pain in joint, pelv ic TECH,1+REGIONS,EA 15 MIN CDT region and thigh [facility]ZC THERAPEUTIC Routine 06/04/2010 1:05 PM Pain in joint, pelv ic ACTIVITIES CDT region and thigh ZZC THERAPEUTIC Routine 06/04/2010 1:05 PM Pain in joint, pelv ic EXERCISES CDT region and thigh documented in this encounter Visit Diagnoses Diagnosis Pain in joint, pelvic region and thigh - Primary documented in this encounter Care Teams Sap Bi Architect Relationship Specialty Start Date End Date Pam Walters MD PCP - General Family Practice 03/12/10 10/10/[address] [address] documented as of this encounter
--- OUTSIDE RECORDS SUMMARY | 2022-07-27 08:45 | XMS_ITS | Encounter Summary ---
:1960 Author Organization [facility] Address [address] [place] [address] Care Team Providers Name Role Phone Pam Walters MD Primary Care Provider Encounter Details Date Type Department Care Team Description 07/02/2010 Therapy Visit [place] for Elisabeth Stahl, Achilles bursitis or Athletic Medicine - PT tendinitis (Primary [place] [facility] Dx) Therapy [address] [place] [phone] Social History Tobacco Use Types Packs/Day Years [...] Name Priority Date/Time Associated Diagnosis Comme nts [facility] ULTRASOUND THERAPY Routine 07/02/2010 8:50 AM RAZOR SHARPENER Achilles bursitis or tendinitis [facility] ELECTRIC CURRENT Routine 07/02/2010 8:50 AM RAZOR SHARPENER Achilles b ursitis or THERAPY tendinitis documented in this encounter Visit Diagnoses Diagnosis Achilles bursitis or tendinitis - Primar y documented in this encounter Care Teams Paramedic Rn Relationship Specialty Start Date End Date Pam Walters MD PCP - General Family Practice 03/12/10 10/10/[address] [address] documented as of this encounter
--- OUTSIDE RECORDS SUMMARY | 2022-07-27 08:45 | XMS_ITS | Encounter Summary ---
:1960 Author Organization [facility] Address [address] [place] [address] Care Team Providers Name Role Phone Pam Walters MD Primary Care Provider Reason for Visit Reason Comments Radiology Visit Encounter Details Date Type Department Care Team Description 11/16/2011 [facility] Only [employer] Spe cia screening for osteoporosis; [place] Absence of menstruation [address] [place] [address] Social History Tobacco Use Types Packs/Day Years [...] Name Priority Date/Time Associated Diagnosis Comme nts DX HIP/PELVIS/SPINE Routine 11/16/2011 Special screening for Results for this osteoporosis procedure are in the Absence of menstruation resu lts section. documented in this encounter Results Dexa hip/pelvis/spine* (11/16/2011) Anatomical Region Laterality Modality Dexa Other Impressions 11/16/2011 BONE DENSITOMETRY [facility] November 16, 2011 PATIENT: ??Annalisa Jacob CHART: [id number] : ??1960 AGE: ??50 year old SEX: ??female REFERRING PHYSICIAN: ??Pam Walters MD, ??M D PROCEDURE: ??Bone density scanning was p erformed using DEXA technology performed on a SportsCstr Scanner. ??Reporting is completed in the form of a T-score. ??Th e T-score represents the standard deviation from peak bone mass b ased on a young healthy adult. Instructor Ballroom Dancing performing scan: ??Danielle Romero ins REFERENCE T-SCORES: ? Normal ? Greater than -1.0 ? Osteopenia ?-1.0 to -2.5 ? Osteoporosis ?? Less than -2.5 ? INDICATIONS: ??Surgical menopause age 38 CURRENT TREATMENT: ??Calcium with Vitami n D FINDINGS: ?Lumbar Spine L1-L4: ?? T-score 1.8 ?Left Femoral Neck: ??T -score 1.0 ?Right Femoral Neck: ?? T-score 0.3 ? Comparison is performed to previous DEXA performed on a SportsCstr Scanner on 06/12/2009 and [facility] base [facility] 12[facility]. Electronically filed by Danielle Mayers 11/16/2011 ??5:05 PM IMPRESSION: Normal bone mineral density study Degenerative changes of the spine Recommendations include ensuring adequat e Calcium (1200 mg per day) and Vitamin D (800-1000 IU/d). Comparisons are not necessarily valid wh en precision within the machine has not been determined. Such a comparison has been performed here; one should interpret wit h caution. In the interim, allowing for standardiza tion calculations, there is suggestion of no significant change o f the lumbar spine, and no significant change of the total hip w hen compared with the scan dated 2008. Comparisons from different scanners that have not been cross calibrated, are not necessarily valid. S uch a comparison has been performed here; one should interpret wit h caution. In the interim, allowing for standardiza tion calculations, there is suggestion of a possible trend toward s worsening of the lumbar spine, and a possible trend towards wors ening of the total hip when compared with the scan dated 2000. Jada Gifford M.D. Electronically signed Narrative This result has an attachment that is no t available. Pam Walters MD IMG DEXA ORDERABLES documented in this encounter Visit Diagnoses Diagnosis Special screening for osteoporosis Absence of menstruation documented in this encounter Care Teams Datastage Developer Relationship Specialty Start Date End Date Pam Walters MD PCP - General Family Practice 03/12/10 10/10/[address] [address] documented as of this encounter
--- OUTSIDE RECORDS SUMMARY | 2022-07-27 08:45 | XMS_ITS | Encounter Summary ---
:1960 Author Organization [facility] Address [address] [place] [address] Care Team Providers Name Role Phone Pam Walters MD Primary Care Provider Encounter Details Date Type Department Care Team Description 08/20/2010 Therapy Visit [place] for Kelli Tyson Achilles b ursitis or Athletic Medicine - ATC tendinitis (Primary [place] [facility] [place] Dx) [facility] [address] [facility] [address] [place] [phone] Social History Tobacco Use Types Packs/Day Years Used Date Smoking Tobacco: Former Cigarettes 1 20 Comments: 07/2008 Alcohol Use Standard Drinks/Week Comments Yes 0 (1 standard drink = 0.6 oz pure alcoho l) very little Sex Assigned at Date Recorded Not on file documented as of this encounter Progress Notes Kelli Tyson - 08/20/2010 1:02 PM CST Subjective: HPI Objective: System Physical Exam General ROS Assessment/Plan: DISCHARGE REPORT Progress reporting period is from 06/17/2010 to 08/20/2009- Pt has completed 12 Iontophoresis treatments. SUBJECTIVE Subjective: Pt notes feeling better this week with less tightness and soreness. Pt reports she was standing less this week. In addition, Pt has been able to return to pool activity. Current Pain level: 2/10 Initial Pain level: 4/10 ; , The subjective and objective information are from the last SOAP note on this patient. OBJECTIVE Objective: goals prgressing, less tender at distall AT ins. (AROM: 10-54, no pain with MMT) ASSESSMENT/PLAN Updated problem list and treatment plan: Diagnosis 1: Left Achilles Tendonitis Pain - hot/cold therapy, US, manual therapy and Iontophoresis Decreased ROM/flexibility - manual therapy, therapeutic exercise, therapeutic activity and home program Decreased function - therapeutic activities and home program STG/LTGs have been met or progress has been made towards goals: Yes (See Goal flow sheet completed today.) Assessment of Progress: The patient's condition is improving. 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 Self Management Plans: Patient has been instructed in a home treatment program. Patient is independent in a home treatment program. Annalisa continues to require the following intervention to meet STG and LTG's: PT We will discharge this patient from PT. Pt will follow up with Physician for the next step in care. Recommendations: This patient is ready to be discharged from therapy and continue their home treatment program. At this time, Pt has completed 12 sessions of Iontophoresis. She will continue with Home program andcontact Physicians office for next step in care and pain management. Please refer to the daily flowsheet for treatment today, total treatment time and time spent performing 1:1 timed codes. ATIONS AND MAINTENANCE SPECIALIST documented in this encounter Plan of Treatment Not on filedocumented as of this encounter Procedures Procedure Name Priority Date/Time Associated Diagnosis Comme nts Z MANUAL THER Routine 08/20/2010 1:08 PM OPERATIONS AND MAINTENANCE SPECIALIST Achilles bursit is or TECH,1+REGIONS,EA 15 tendinitis MIN ZZ ULTRASOUND THERAPY Routine 08/20/2010 1:08 PM OPERATIONS AND MAINTENANCE SPECIALIST Achilles bursitis or tendinitis ZZ ELECTRIC CURRENT Routine 08/20/2010 1:08 PM OPERATIONS AND MAINTENANCE SPECIALIST Achilles b ursitis or THERAPY tendinitis documented in this encounter Visit Diagnoses Diagnosis Achilles bursitis or tendinitis - Primar y documented in this encounter Care Teams Poultry Farmer Relationship Specialty Start Date End Date Pam Walters MD PCP - General Family Practice 03/12/10 10/10/[address] [address] documented as of this encounter
--- OUTSIDE RECORDS SUMMARY | 2022-07-27 08:45 | XMS_ITS | Encounter Summary ---
:1960 Author Organization [facility] Address [address] [place] [address] Care Team Providers Name Role Phone Pam Walters MD Primary Care Provider Encounter Details Date Type Department Care Team Description 05/14/2010 Therapy Visit [place] [facility] [place], Pain in Joint, Pelvic Athletic Medicine - PT Region and Thigh [facility] [address] [place], [place] [address] [address] [place], [place] [phone] (Work) [phone] Social History Tobacco Use Types Packs/Day Years Used Date Smoking Tobacco: Former Cigarettes 1 20 Comments: 07/2008 Alcohol Use Standard Drinks/Week Comments Yes 0 (1 standard drink = 0.6 oz pure alcoho l) very little Sex Assigned at Date Recorded Not on file documented as of this encounter Progress Notes Elma Reilly - 05/14/2010 3:42 PM CDT Subjective: Pertinent medical history includes: Osteoarthritis, overweight, implanted device and smoking (osteoarthritis - knees; knee replacement; smoking - past). Medical allergies: yes (penicillin). Other surgeries include: Orthopedic surgery (knee replacement 12/22). Current medications: Anti-inflammatory. 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 Primary job tasks include: Prolonged sitting and repetitive tasks. Barriers include: Bathroom/bedroom on second floor and stairs. Oswestry Score: 30 % Objective: System Physical Exam General ROS Assessment/Plan: Clau Williamson - 05/14/2010 12:20 PM CDT Subjective: Annalisa Jacob is a 49 year old female with a sacroiliac (left) condition. Condition occurred with: Other reason (increased walking). This is a recurrent condition 03/2010. Patient reports pain: SI joint left. Radiates to: left anterior hip. Pain is described as sharp and aching and is intermittent and reported as 4/10 (8/10 at times). Associated symptoms: Numbness (left anterior thight occasionally). Pain is worse during the night. Symptoms are exacerbated by walking (stairs, sit to stand) and relieved by NSAID's. Objective: System Lumbar/SI Evaluation ROM: AROM Lumbar: Flexion: 100% Ext: 70%* Side Bend: Left: 70%* Right: 80% Rotation: Left: 100%* Right: 100% Side Clinton: Left: Right: Lumbar Myotomes: T12-L3 (Hip Flex): Left: 4+ Lumbar Dermtomes: normal Neural Tension/Mobility: Lumbar: Normal Lumbar Palpation: Tenderness present at Left: Hip Flexors Lumbar Provocation: Left positive with: PROM hip SI joint/Sacrum: Provocation: + compression left Left negative at: Forward bend standing Right negative at: Forward bend standing General ROS Assessment/Plan: Patient is a 49 year old female with sacral and left hip complaints. Patient has the following significant findings with corresponding treatment plan. Diagnosis 1: Left SI dysfunction Pain - hot/cold therapy, manual therapy and home program Decreased strength - therapeutic exercise, therapeutic activities and home program Inflammation - US Impaired muscle performance - neuro re-education and home program Previous and current functional limitations: (See Goal Flow Sheet for this information) Short term and continuous churn buttermaker goals: (See Goal Flow Sheet for this [...] good. Frequency: 2 X week Duration: for 4 weeks Discharge Plan: Achieve all LTG. Independent in home treatment program. Reach maximal therapeutic benefit. Please refer to the daily flowsheet for treatment today, total treatment time and time spent performing 1:1 timed codes. documented in this encounter Plan of Treatment Not on filedocumented as of this encounter Procedures Procedure Name Priority Date/Time Associated Diagnosis Comme [facility] THERAPEUTIC Routine 05/14/2010 12:26 PM Pain in Joint, Pel joesluis EXERCISES CDT Region and Thigh documented in this encounter Visit Diagnoses Diagnosis Pain in joint, pelvic region and thigh - Primary documented in this encounter Care Teams Foam Rubber Molder Relationship Specialty Start Date End Date Pam Walters MD PCP - General Family Practice 03/12/10 10/10/[address] [address] documented as of this encounter
--- OUTSIDE RECORDS SUMMARY | 2022-07-27 08:46 | XMS_ITS | Encounter Summary ---
:1960 Author Organization [facility] Address [address] [place] [address]. [place] [address] Care Team Providers Name Role Phone Subha Ramirez PA-C Primary Care Provider [phone] Encounter Details Date Type Department Care Team Description 01/20/2010 Therapy Visit [facility] Daniel Pastrana, Aftercare Following Joint Re placement; [id number] Knee Joint Replacement by Other Means [place] [id number] [facility] [phone] [facility] [address] [place] [phone] Social History Tobacco Use Types Packs/Day Years [...] Associated Diagnosis Comme nts [facility] THERAPEUTIC Routine 01/20/2010 1:28 PM Aftercare Following EXERCISES CDT Joint Replacemen t Knee Joint Replacement by Other Means [facility] HOT OR COLD PACKS Routine 01/20/2010 1:28 PM Aftercare Fol lowing THERAPY CDT Joint Replacemen t Knee Joint Replacement by Other Means documented in this encounter Visit Diagnoses Diagnosis Aftercare following joint replacement Knee joint replacement by other means documented in this encounter Care Teams Recording Studio Setup Worker Relationship Specialty Start Date End Date Subha Ramirez PA-C PCP - General 02/23/02 03/11/10 [facility] [address] [facility] [address] documented as of this encounter
--- OUTSIDE RECORDS SUMMARY | 2022-07-27 08:46 | XMS_ITS | Encounter Summary ---
:1960 Author Organization [facility] Address [address] [place] [address]. [place] [address] Care Team Providers Name Role Phone Subha Ramirez PA-C Primary Care Provider [phone] Encounter Details Date Type Department Care Team Description 01/15/2010 Therapy Visit [facility] Daniel Pastrana, Aftercare Following Joint Re placement; [id number] Knee [place] [address] [facility] [phone] [facility] [address] [place] [phone] Social History Tobacco Use Types Packs/Day Years [...] Name Priority Date/Time Associated Diagnosis Comme nts ZZ THERAPEUTIC Routine 01/15/2010 10:35 AM Aftercare Followin g ACTIVITIES CDT Joint Replacemen t Knee Joint Replacement by Other Means ZZ THERAPEUTIC Routine 01/15/2010 10:35 AM Aftercare Followin g EXERCISES CDT Joint Replacemen t Knee Joint Replacement by Other Means [facility] HOT OR COLD PACKS Routine 01/15/2010 10:35 AM Aftercare Fo llowing THERAPY CDT Joint Replacemen t Knee Joint Replacement by Other Means documented in this encounter Visit Diagnoses Diagnosis Aftercare following joint replacement Knee joint replacement by other means documented in this encounter Care Teams Rat Culturist Relationship Specialty Start Date End Date Subha Ramirez PA-C PCP - General 02/23/02 03/11/10 [facility] [address] [facility] [place] [phone] documented as of this encounter
--- OUTSIDE RECORDS SUMMARY | 2022-07-27 08:46 | XMS_ITS | Encounter Summary ---
:1960 Author Organization [facility] Address [address] [place] [address] Care Team Providers Name Role Phone Subha Ramirez PA-C Primary Care Provider [phone] Encounter Details Date Type Department Care Team Description 01/22/2010 Therapy Visit [facility] Elsa Silveira PTA Aftercare Following Joint Re placement; [id number] Knee Joint Replacement by Ot her Means [place], [place] [phone] Social History Tobacco Use Types Packs/Day Years [...] Name Priority Date/Time Associated Diagnosis Comme nts [facility] THERAPEUTIC Routine 01/22/2010 10:59 AM Aftercare Followin g ACTIVITIES CDT Joint Replacemen t Knee Joint Replacement by Other Means [facility] THERAPEUTIC Routine 01/22/2010 10:59 AM Aftercare Followin g EXERCISES CDT Joint Replacemen t Knee Joint Replacement by Other Means [facility] HOT OR COLD PACKS Routine 01/22/2010 10:59 AM Aftercare Fo llowing THERAPY CDT Joint Replacemen t Knee Joint Replacement by Other Means documented in this encounter Visit Diagnoses Diagnosis Aftercare following joint replacement Knee joint replacement by other means documented in this encounter Care Teams Hims Coder Relationship Specialty Start Date End Date Subha Ramirez PA-C PCP - General 02/23/02 03/11/10 [facility] [address] [place] [address] documented as of this encounter
--- OUTSIDE RECORDS SUMMARY | 2022-07-27 08:46 | XMS_ITS | Encounter Summary ---
:1960 Author Organization [facility] Address [address] [place] [address]. [place] [address] Care Team Providers Name Role Phone Subha Ramirez PA-C Primary Care Provider [phone] Encounter Details Date Type Department Care Team Description 02/18/2010 Therapy Visit [facility] Daniel Pastrana, Aftercare Following Joint Re placement; [id number] [place] [address] [facility] [phone] [facility] [address] [place] [phone] Social History Tobacco Use Types Packs/Day Years [...] Associated Diagnosis Comme nts [facility]ZC THERAPEUTIC Routine 02/18/2010 5:43 PM Aftercare Following ACTIVITIES CDT Joint Replacemen t Knee Joint Replacement by Other Means Z THERAPEUTIC Routine 02/18/2010 5:43 PM Aftercare Following EXERCISES CDT Joint Replacemen t Knee Joint Replacement by Other Means [facility] HOT OR COLD PACKS Routine 02/18/2010 5:43 PM Aftercare Fol lowing THERAPY CDT Joint Replacemen t Knee Joint Replacement by Other Means documented in this encounter Visit Diagnoses Diagnosis Aftercare following joint replacement Knee joint replacement by other means documented in this encounter Care Teams Truckload Checker Relationship Specialty Start Date End Date Subha Ramirez PA-C PCP - General 02/23/02 03/11/10 [facility] [address] [place] [address] documented as of this encounter
--- OUTSIDE RECORDS SUMMARY | 2022-07-27 08:46 | XMS_ITS | Encounter Summary ---
:1960 Author Organization [facility] Address [address] [place] [address] Care Team Providers Name Role Phone Subha Ramirez PA-C Primary Care Provider [phone] Pam Walters MD Primary Care Provider Encounter Details Date Type Department Care Team Description 01/19/2010 Historic Notes INTERFACED REPORT Interface, Transcript on, Social History Tobacco Use Types Packs/Day Years Used Date Smoking Tobacco: Former Cigarettes 1 20 Comments: 07/2008 Alcohol Use Standard Drinks/Week Comments Yes 0 (1 standard drink = 0.6 oz pure alcoho l) very little Sex Assigned at Date Recorded Not on file documented as of this encounter Progress Notes Interface, Clinical Social Worker - 10/31/2010 2:54 AM CDT OUT-PATIENT NUTRITION CONSULTATION DIAGNOSIS: Obesity REFERRING MD: Dr. Pam Walters ANTHROPOMETRICS: Ht: 5' 11 Wt: 141.8 kg BMI: 43.6 kg/^m DIET HISTORY: Pt. states she craves carbohydrates, cheese and peanut butter. Consistently eats 3 meals/day. Drinks several flavored coffee drinks weekly. Diet hx. shows a low intake of fruits, vegetables and dairy products. At this time pt. is not interested in bariatric surgery. EXERCISE: 4 times/week for 60 min. NUTRITION DIAGNOSIS: Obesity related to excess energy intake as evidenced by current BMI of 43.6 kg/^m INTERVENTIONS: Discussed portion sizes, label reading, and emotional eating. Determined alternatives to emotional eating. Provided written meal plan. OUTCOMES: Understands food allowances following diet as instructed-needs reinforcement Understands benefit of physical activity-verbalized Demonstrates motivation to comply with diet- needs reinforcement GOALS: Patient aware of emotional eating. Follow written meal plan. Change to a lower calorie coffee drink Journal food inake and physical activty FOLLOW-UP: No further follow up unless desired by patient or physician. RD name and number provided. TIME SPENT WITH PT: 60 min. [Signature] Author: Oc Koo (RD, LD) [Signed 10:33] documented in this encounter Plan of Treatment Not on filedocumented as of this encounter Visit Diagnoses Not on filedocumented in this encounter Care Teams Maitre D Relationship Specialty Start Date End Date Subha Ramirez PA-C PCP - General 02/23/02 03/11/10 [facility] [address] [place] [phone] Pam Walters MD PCP - General Family Practice 03/12/10 10/10/13 [facility] [address] [place] [address] documented as of this encounter
--- OUTSIDE RECORDS SUMMARY | 2022-07-27 08:46 | XMS_ITS | Encounter Summary ---
:1960 Author Organization [facility] Address [address] [place] [address] Care Team Providers Name Role Phone Pam Walters MD Primary Care Provider Reason for Referral Specialty Diagnoses / Procedures Referred By Contact Refer red To Contact Pam Walters MD [facility] [place] [address] Referral ID Status Reason Start Date Expiration Date Visits Requ ested Visits Authorized Encounter Details Date Type Department Care Team Description 03/12/2010 Orders Only [facility] Pam Walters MD Status [facility] [address] [facility] Dx) [place] [phone] Social History Tobacco Use Types Packs/Day Years Used Date Smoking Tobacco: Former Cigarettes 1 20 Comments: 07/2008 Alcohol Use Standard Drinks/Week Comments Yes 0 (1 standard drink = 0.6 oz pure alcoho l) very little Sex Assigned at Date Recorded Not on file documented as of this encounter Plan of Treatment Not on filedocumented as of this encounter Visit Diagnoses Diagnosis Status post total knee replacement - [facility] Knee joint replacement by other means documented in this encounter Care Teams Dolly Operator Relationship Specialty Start Date End Date Pam Walters MD PCP - General Family Practice 03/12/10 10/10/[address] [address] documented as of this encounter
--- OUTSIDE RECORDS SUMMARY | 2022-07-27 08:46 | XMS_ITS | Encounter Summary ---
:1960 Author Organization [facility] Address [address] [place] [address]. [place] [address] Care Team Providers Name Role Phone Subha Ramirez PA-C Primary Care Provider [phone] Encounter Details Date Type Department Care Team Description 02/10/2010 Therapy Visit [facility] Daniel Pastrana, Aftercare Following Joint Re placement; [id number] Knee [place] [address] [facility] [phone] [facility] [address] [place] [phone] Social History Tobacco Use Types Packs/Day Years [...] Associated Diagnosis Comme nts ZZ THERAPEUTIC Routine 02/10/2010 10:53 AM Aftercare Followin g ACTIVITIES CDT Joint Replacemen t Knee Joint Replacement by Other Means [facility]Z THERAPEUTIC Routine 02/10/2010 10:53 AM Aftercare Followin g EXERCISES CDT Joint Replacemen t Knee Joint Replacement by Other Means [facility] HOT OR COLD PACKS Routine 02/10/2010 10:53 AM Aftercare Fo llowing THERAPY CDT Joint Replacemen t Knee Joint Replacement by Other Means documented in this encounter Visit Diagnoses Diagnosis Aftercare following joint replacement Knee joint replacement by other means documented in this encounter Care Teams Sales Technician Relationship Specialty Start Date End Date Subha Ramirez PA-C PCP - General 02/23/02 03/11/10 [facility] [address] [facility] [place] [phone] documented as of this encounter
--- OUTSIDE RECORDS SUMMARY | 2022-07-27 08:46 | XMS_ITS | Encounter Summary ---
:1960 Author Organization [facility] Address [address] [place] [address]. [place] [address] Care Team Providers Name Role Phone Subha Ramirez PA-C Primary Care Provider [phone] Encounter Details Date Type Department Care Team Description 01/13/2010 [facility], Aftercare Following Joint Re placement; [id number] Knee Joint [place] [address] [facility] [phone] [facility] [address] [place] [phone] Social History Tobacco Use Types Packs/Day Years Used Date Smoking Tobacco: Former Cigarettes 1 20 Comments: 07/2008 Alcohol Use Standard Drinks/Week Comments Yes 0 (1 standard drink = 0.6 oz pure alcoho l) very little Sex Assigned at Date Recorded Not on file documented as of this encounter Progress Notes Daniel Jackson - 01/13/2010 11:56 AM CDT Subjective: Annalisa Jacob is a 49 year old female with a right knee condition. This is a new condition Pt is s/p right TKA which was performed on 12/24/09. She had progressive knee pain dating back to her teen years in which she tore her ACL. She had failed conservative management with cortizone and synvisc injections. She has had home PT since the surgery and is currently walking with a cane.. Associated symptoms: Loss of motion/stiffness, edema and loss of strength. Symptoms are exacerbatedby activity and relieved by rest and ice. Previous treatment includes physical therapy. General health as reported by patient is good. Objective: System Knee Evaluation: ROM: AROM Hyperextension: Left: 0 Right: 0 Extension: Left: 0 Right: 9 Flexion: Left: 123 Right: 99 PROM Hyperextension: Left: Right: 0 Extension: Left: Right: 9 Flexion: Left: Right: 102 Special Tests: Special test for knee: - Ирина's. Palpation: Normal Edema: Normal General ROS Assessment/Plan: Patient is a 49 year old female with right knee complaints. Patient has the following significant findings with corresponding treatment plan. Diagnosis 1: Right TKA Pain - hot/cold therapy Decreased ROM/flexibility - manual therapy and therapeutic exercise Decreased strength - therapeutic exercise and therapeutic activities Edema - cold therapy Previous and current functional limitations: (See Goal Flow Sheet for this information) Short term and senior care goals: (See Goal Flow Sheet for this [...] good. Frequency: 2 X week Duration: for 5-6 weeks Discharge Plan: Achieve all LTG. Independent in home treatment program. Reach maximal therapeutic benefit. Please refer to the daily flowsheet for treatment today, total treatment time and time spent performing 1:1 timed codes. Elsa Shanks - 01/13/2010 11:10 AM CDT Subjective: Pertinent medical history includes: Osteoarthritis, overweight, implanted device and smoking. Medical allergies: yes (penicillan). Other surgeries include: Orthopedic surgery and other (Right Knee, Hysterectomy). Current medications: Pain medication. 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 Primary job tasks include: Prolonged sitting and repetitive tasks. Barriers include: Bathroom/bedroom on second floor and stairs. Red flags: None as reported by patient. Objective: System Physical Exam General ROS Assessment/Plan: Please refer to the daily flowsheet for treatment today, total treatment time and time spent performing 1:1 timed codes. documented in this encounter Plan of Treatment Not on filedocumented as of this encounter Procedures Procedure Name Priority Date/Time Associated Diagnosis Comme nts ZC THERAPEUTIC Routine 01/13/2010 11:57 AM Aftercare Followin g EXERCISES CDT Joint Replacemen t Knee Joint Replacement by Other Means [facility] HOT OR COLD PACKS Routine 01/13/2010 11:57 AM Aftercare Fo llowing THERAPY CDT Joint Replacemen t Knee Joint Replacement by Other Means documented in this encounter Visit Diagnoses Diagnosis Aftercare following joint replacement Knee joint replacement by other means documented in this encounter Care Teams Transportation Specialist Relationship Specialty Start Date End Date Subha Ramirez PA-C PCP - General 02/23/02 03/11/10 [facility] [address] [place] [address] documented as of this encounter
--- OUTSIDE RECORDS SUMMARY | 2022-07-27 08:46 | XMS_ITS | Encounter Summary ---
:1960 Author Organization [facility] Address [address] [place] [address]. [place] [address] Care Team Providers Name Role Phone Subha Ramirez PA-C Primary Care Provider [phone] Encounter Details Date Type Department Care Team Description 02/05/2010 [facility], Aftercare Following Joint Re placement; [address] Knee [place] [address] [facility] [phone] [address] [address] [address] [place] [phone] Social History Tobacco Use Types Packs/Day Years Used Date Smoking Tobacco: Former Cigarettes 1 20 Comments: 07/2008 Alcohol Use Standard Drinks/Week Comments Yes 0 (1 standard drink = 0.6 oz pure alcoho l) very little Sex Assigned at Date Recorded Not on file documented as of this encounter Progress Notes Daniel Jackson - 02/05/2010 12:06 PM CDT Subjective: HPI Objective: System Physical Exam General ROS Assessment/Plan: PROGRESS REPORT Progress reporting period is from 01/13/10 to 02/05/10. SUBJECTIVE Subjective changes noted by patient: Able to ascend stairs for the first time in a few years. Can walk without the cane fairly well for short distances. Not comfortable driving yet. Subjective: Doing well. Good and bad days. See goal sheet for functional progress. Current pain level is NA . Previous pain level was NA . Changes in function: Yes (See Goal flowsheet attached for changes in current functional level) Adverse reaction to treatment or activity: None OBJECTIVE Changes noted in objective findings: Objective: Ext=5 Flex= 118 ASSESSMENT/PLAN Updated problem list and treatment plan: Diagnosis 1: TKA Pain - self management and home program Decreased ROM/flexibility - manual therapy and therapeutic exercise Decreased strength - therapeutic exercise and therapeutic activities Edema - cold therapy and self management/home program STG/LTGs have been met or progress has been made towards goals: Yes (See Goal flow sheet completed today.) Assessment of Progress: The patient's condition is improving. Self Management Plans: Patient has been instructed in a home treatment program. Annalisa continues to require the following intervention to meet STG and LTG's: PT Recommendations: This patient would benefit from continued therapy. Frequency: 2 X week Duration: for 3 weeks tapering to 1 X a week over 3 weeks Please refer to the daily flowsheet for treatment today, total treatment time and time spent performing 1:1 timed codes. documented in this encounter Plan of Treatment Not on filedocumented as of this encounter Procedures Procedure Name Priority Date/Time Associated Diagnosis Comme nts [facility] THERAPEUTIC Routine 02/05/2010 1:47 PM Aftercare Following ACTIVITIES CDT Joint Replacemen t Knee Joint Replacement by Other Means [facility] THERAPEUTIC Routine 02/05/2010 1:47 PM Aftercare Following EXERCISES CDT Joint Replacemen t Knee Joint Replacement by Other Means [facility] HOT OR COLD PACKS Routine 02/05/2010 1:47 PM Aftercare Fol lowing THERAPY CDT Joint Replacemen t Knee Joint Replacement by Other Means documented in this encounter Visit Diagnoses Diagnosis Aftercare following joint replacement Knee joint replacement by other means documented in this encounter Care Teams Laboratory Engineer Relationship Specialty Start Date End Date Subha Ramirez PA-C PCP - General 02/23/02 03/11/10 [facility] [address] [place] [phone] documented as of this encounter
--- OUTSIDE RECORDS SUMMARY | 2022-07-27 08:46 | XMS_ITS | Encounter Summary ---
:1960 Author Organization [facility] Address [address] [place] [address] Care Team Providers Name Role Phone Subha Ramirez PA-C Primary Care Provider [phone] Reason for Visit Reason Comments Radiology Visit Encounter Details Date Type Department Care Team Description 12/19/2009 Orders Only [facility] Scr eening Mammogram [place] (Primary Dx) [address] [place] [address] Social History Tobacco Use Types [...] Procedure Name Priority Date/Time Associated Diagnosis Comme [facility] MAMMOGRAM, Routine 12/19/2009 Screening Mammogram Results for this SCREENING BILATERAL procedur e are in the results section . documented in this encounter Results MAMMOGRAM, SCREENING (12/19/2009) P athologist Signature MAMMOGRAM Anatomical Region Laterality Modality Other Impressions 12/19/2009 Electronically filed by Randa Walls ??12/19/2009 ??11:38 AM RADIOLOGIST'S INTERPRETATION: Breast parenchyma: ??fatty/mild densitie s IMAGING IMPRESSION: (CATEGORY-1) NEGATIVE Ken Nieves M.D. D/T: ??12/23/09 Subha Ramirez PA-C SPECIAL IMAGING STUDIES documented in this encounter Visit Diagnoses Diagnosis Screening mammogram - Primary Other screening mammogram documented in this encounter Care Teams Autopsy Pathologist Relationship Specialty Start Date End Date Subha Ramirez PA-C PCP - General 02/23/02 03/11/[address] [facility] [address] [place] [phone] documented as of this encounter
--- OUTSIDE RECORDS SUMMARY | 2022-07-27 08:46 | XMS_ITS | Encounter Summary ---
:1960 Author Organization [facility] Address [address] [place] [address] Care Team Providers Name Role Phone Pam Walters MD Primary Care Provider Reason for Referral - Closed Specialty Diagnoses / Procedures Referred By Contact Refer red To Contact Diagnoses SI (sacroiliac) joint dysfunction Meme Roth MD [facility] [address] [place], [place] [address] [address] Referral ID Status Reason Start Date Expiration Date Visits Requ ested Visits Authorized [id number] Closed 05/08/2010 05/08/2010 1 1 Reason for Visit Reason Comments Hip left pain off and on for 2 years. Encounter Details Date Type Department Care Team Description 05/08/2010 Office Visit [facility] Hip Pain (Primary Dx); Orthopedic MD Dipti SI (Sacroiliac) Joint Dysfunction [facility] [address] [place] [address] [address] [facility] [address] [facility] [place] [phone] Social History Tobacco Use Types Packs/Day Years Used Date Smoking Tobacco: Former Cigarettes 1 20 Comments: 07/2008 Alcohol Use Standard Drinks/Week Comments Yes 0 (1 standard drink = 0.6 oz pure alcoho l) very little Sex Assigned at Date Recorded Not on file documented as of this encounter Last Filed Vital Signs Vital Sign Reading Time Taken Comments Blood Pressure 138/78 05/08/2010 9:24 AM CDT Pulse - - Temperature - - Respiratory Rate - - Oxygen Saturation - - Inhaled Oxygen Concentration - - Weight 136.1 kg (300 lb) 05/08/2010 9:24 AM CDT Height 182.9 cm (6') 05/08/2010 9:24 AM CDT Body Mass Index 40.69 05/08/2010 9:24 AM CDT documented in this encounter Progress Notes Meme Roth - 05/08/2010 9:27 AM CDT SUBJECTIVE: Annalisa Jacob is a 49 year old female who is seen as self referral for left hip pain that startedoff and on for 2 years. Onset: unknown, started after a right TKA Immediate symptoms: pain in the posterior and anterior hip, feels like it is catching in the hip when she walks. Mitigating Factors: Ibuprofen Symptoms have been worsening since that time. Prior history of related problems: no prior problems with this area in the past. Patients past medical, surgical, social and family histories reviewed. Past medical history notable for: reviewed on the up to date problem list in the chart REVIEW OF SYSTEMS: CONSTITUTIONAL:NEGATIVE for fever, chills, change in weight INTEGUMENTARY/SKIN: NEGATIVE for worrisome rashes, moles or lesions MUSCULOSKELETAL:See HPI above NEURO: NEGATIVE for weakness, dizziness or paresthesias BP 138/78 Ht 6' (1.829 m) Wt 300 lb (136.079 kg) EXAM: GENERAL APPEARANCE: healthy, alert and no distress GAIT: NORMAL SKIN: no suspicious lesions or rashes NEURO: normal strength and tone, sentation intact, reflexes normal, mentation intact, speech normal,DTR symmetrically normal in upper extremities and DTR symmetrically normal in lower extremities PSYCH: mentation appears normal and affect normal/bright MUSCULOSKELETAL: LEFT HIP: Palpation: Tender: Left SI joint Non-tender: left greater trochanter, left gluteus medius, left ASIS, left iliac crest, left proximalhamstring attachment Range of Motion: Left Hip flexion full, extension full, external rotation full, internal rotation full, adduction full, abduction full Strength: flexion: 5/5, extension 5/5, abduction: 5-/5, adduction: 5/5, internal rotation: 5/5, external roatation: 5-/5 Special tests: no crepitation/snapping over central inguinal region, no crepitation/snapping over greater trochanter, logrolling neg, DARREN neg, Extension Abduction ER neg LUMBAR SPINE: Non-tender: lumbar spinous processes, lumbar facet joints, left para lumbar muscles, right para lumbar muscles, left sciatic notch, right sciatic notch Range of Motion: lumbar flexion full, lumbar extension full, left lateral lumbar bending full, rightlateral lumbar bending full, left lateral lumbar rotation full, right lateral lumbar rotation full Strength: able to heel walk, able to toe walk, gastrocsoleus 5/5, hamstrings 5/5, quadriceps 5/5, tibialis anterior 5/5, peroneals 5/5 Special tests: negative straight leg raises, negative facet compression test, positive SI joint compression ASSESSMENT/PLAN: Left hip SI joint pain that started after a right TKA. Has mild underlying DJD of the left hip. Recommended PT. Ice and ibuprofen prn. If not improving could consider an SI joint injection. Consider anSI joint belt in PT. X-RAY INTERPRETATION: X-Ray of the Hip: 2-view, ap pelvis, Left Frogleg Lateral ordered and interpreted in the office today was positive for mild degenerative changes of the left and right hips, mild lumbar degenerative changes. documented in this encounter Nursing Notes 05/08/2010 9:15 AM CDT >> Fredrick Weeks Fri May 08, 2010 9:27 AM Patient presents with: Hip left - pain off and on for 2 years. Initial BP 138/78 Ht 6' (1.829 m) Wt 300 lb (136.079 kg) Estimated Body mass index is 40.69 kg/(m^2) as calculated from the following: Height as of this encounter: 6' 0(1.829 m). Weight as of this encounter: 300 lb(136.079 kg).. BP completed using cuff size: large documented in this encounter Plan of Treatment Not on filedocumented as of this encounter Procedures Procedure Name Priority Date/Time Associated Diagnosis Comme nts C LT X-RAY HIP UNI Routine 05/08/2010 9:40 AM Hip pain Res ults for this 2+ VW CDT procedure are i n the results section. documented in this encounter Results Hip - Left (05/08/2010 9:40 AM CDT) Anatomical Region Laterality Modality Other Specimen (Source) Anatomical Collection Method Collection Time Re ceived Time Location / / Volume Laterality 05/08/2010 9:40 AM CDT Impressions 05/08/2010 3:48 PM CDT LEFT HIP TWO OR MORE VIEWS ??May 08 201 0 9:40:00 AM HISTORY: Hip pain. FINDINGS: Changes of mild left hip osteo arthritis. I suspect minimal right hip osteoarthritis. There is some disc space narrowing at L4-L5, assuming 5 lumbar type vertebrae. Meme Roth MD GENERAL IMAGING documented in this encounter Visit Diagnoses Diagnosis Hip pain - Primary Pain in joint, pelvic region and thigh SI (sacroiliac) joint dysfunction Disorders of sacrum documented in this encounter Care Teams Client Liaison Relationship Specialty Start Date End Date Pam Walters MD PCP - General Family Practice 03/12/10 10/10/[address] [address] documented as of this encounter
--- OUTSIDE RECORDS SUMMARY | 2022-07-27 08:46 | XMS_ITS | Encounter Summary ---
:1960 Author Organization [facility] Address [address] [place] [address]. [place] [address] Care Team Providers Name Role Phone Subha Ramirez PA-C Primary Care Provider [phone] Encounter Details Date Type Department Care Team Description 02/24/2010 Therapy Visit [facility] Daniel Pastrana, Aftercare Following Joint Re placement; [id number] PT Knee [place] [address] [facility] [phone] [facility] E [address] [place] [phone] Social History Tobacco Use Types Packs/Day Years [...] Associated Diagnosis Comme nts [facility] THERAPEUTIC Routine 02/24/2010 3:30 PM Aftercare Following ACTIVITIES CDT Joint Replacemen t Knee Joint Replacement by Other Means [facility] THERAPEUTIC Routine 02/24/2010 3:30 PM Aftercare Following EXERCISES CDT Joint Replacemen t Knee Joint Replacement by Other Means [facility] HOT OR COLD PACKS Routine 02/24/2010 3:30 PM Aftercare Fol lowing THERAPY CDT Joint Replacemen t Knee Joint Replacement by Other Means documented in this encounter Visit Diagnoses Diagnosis Aftercare following joint replacement Knee joint replacement by other means documented in this encounter Care Teams Pre K Special Education Teacher Relationship Specialty Start Date End Date Subha Ramirez PA-C PCP - General 02/23/02 03/11/10 [facility] [address] [place] [phone] documented as of this encounter
--- OUTSIDE RECORDS SUMMARY | 2022-07-27 08:46 | XMS_ITS | Encounter Summary ---
:1960 Author Organization [facility] Address [address] [place] [address] Care Team Providers Name Role Phone Subha Ramirez PA-C Primary Care Provider [phone] Encounter Details Date Type Department Care Team Description 02/02[facility]2010 [facility], After[facility] Following Joint Re placement; [id number] Knee Joint Replacement by Ot her Means [place], [place] [phone] Social History Tobacco Use Types Packs/Day Years [...] Priority Date/Time Associated Diagnosis Comme nts C NEUROMUSCULAR Routine 02/02/2010 9:58 AM Aftercare Followi ng RE-EDUCATION CDT Joint Replacemen t Knee Joint Replacement by Other Means Z THERAPEUTIC EXERCISES Routine 02/02/2010 9:58 AM Aftercare Following CDT Joint Replacemen t Knee Joint Replacement by Other Means [facility] HOT OR COLD PACKS Routine 02/02/2010 9:58 AM Aftercare Fol lowing THERAPY CDT Joint Replacemen t Knee Joint Replacement by Other Means documented in this encounter Visit Diagnoses Diagnosis Aftercare following joint replacement Knee joint replacement by other means documented in this encounter Care Teams Nut Tightener Relationship Specialty Start Date End Date Subha Ramirez PA-C PCP - General 02/23/02 03/11/10 [facility] [address] [place] [address] documented as of this encounter
--- OUTSIDE RECORDS SUMMARY | 2022-07-27 08:46 | XMS_ITS | Encounter Summary ---
:1960 Author Organization [employer] Address [facility] [place] [address] Care Team Providers Name Role Phone Subha Ramirez PA-C Primary Care Provider [phone] Encounter Details Date Type Department Care Team Description 01/29/2010 [facility] Following Joint Re placement; [address], PT Knee Joint [place] [address] [facility] [phone] [place] [address] Social History Tobacco Use Types Packs/Day Years [...] Associated Diagnosis Comme nts [facility] THERAPEUTIC Routine 01/29/2010 9:03 AM Aftercare Following ACTIVITIES CDT Joint Replacemen t Knee Joint Replacement by Other Means [facility] NEUROMUSCULAR Routine 01/29/2010 9:03 AM Aftercare Followi ng RE-EDUCATION CDT Joint Replacemen t Knee Joint Replacement by Other Means Z THERAPEUTIC EXERCISES Routine 01/29/2010 9:03 AM Aftercare Following CDT Joint Replacemen t Knee Joint Replacement by Other Means Z HOT OR COLD PACKS Routine 01/29/2010 9:03 AM Aftercare Fol lowing THERAPY CDT Joint Replacemen t Knee Joint Replacement by Other Means documented in this encounter Visit Diagnoses Diagnosis Aftercare following joint replacement Knee joint replacement by other means documented in this encounter Care Teams Band Saw Marker Relationship Specialty Start Date End Date Subha Ramirez PA-C PCP - General 02/23/02 03/11/10 [facility] [address] [place] [address] documented as of this encounter
--- OUTSIDE RECORDS SUMMARY | 2022-07-27 08:46 | XMS_ITS | Encounter Summary ---
:1960 Author Organization [facility] Address [address] [place] [address] Care Team Providers Name Role Phone Subha Ramirez PA-C Primary Care Provider [phone] Encounter Details Date Type Department Care Team Description 03/04/2010 [facility], Aftercare Following Joint Re placement; [address], PT Knee [place] [address] [phone] [place] [address] Social History Tobacco Use Types Packs/Day Years Used Date Smoking Tobacco: Former Cigarettes 1 20 Comments: 07/2008 Alcohol Use Standard Drinks/Week Comments Yes 0 (1 standard drink = 0.6 oz pure alcoho l) very little Sex Assigned at Date Recorded Not on file documented as of this encounter Progress Notes [facility]ley Sousa - 03/04/2010 10:06 AM CDT Subjective: HPI Objective: System Physical Exam General ROS Assessment/Plan: DISCHARGE REPORT Progress reporting period is from 02/05/2010 to 03/04/2010. SUBJECTIVE Subjective changes noted by patient:. Subjective: Pt is doing well with HEP walking and stairs are going well. Sometimes she is moving at a slower pace but overall she seems to be doing better each week. Current pain level is 0/10 Current Pain level: 0/10. Previous pain level was 1/10 . 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 Self Management Plans: Patient has been [...] Priority Date/Time Associated Diagnosis Comme nts Z NEUROMUSCULAR Routine 03/04/2010 9:54 AM Aftercare Followi ng RE-EDUCATION CDT Joint Replacemen t Knee Joint Replacement by Other Means [facility] THERAPEUTIC EXERCISES Routine 03/04/2010 9:54 AM Aftercare Following CDT Joint Replacemen t Knee Joint Replacement by Other Means documented in this encounter Visit Diagnoses Diagnosis Aftercare following joint replacement Knee joint replacement by other means documented in this encounter Care Teams Senior Internet Sales Consultant Relationship Specialty Start Date End Date Subha Ramirez PA-C PCP - General 02/23/02 03/11/10 [facility] [address] [place] [address] documented as of this encounter
--- OUTSIDE RECORDS SUMMARY | 2022-07-27 08:46 | XMS_ITS | Encounter Summary ---
:1960 Author Organization [facility] Address [address] [place] [address] Care Team Providers Name Role Phone Subha Ramirez PA-C Primary Care Provider [phone] Encounter Details Date Type Department Care Team Description 01/27/2010 Therapy Visit [facility] Laura Chávez Aftercare Following Joint Re placement; [address] Knee [place] [address] Social History Tobacco Use Types Packs/Day Years [...] Name Priority Date/Time Associated Diagnosis Comme nts [facility] THERAPEUTIC Routine 01/27/2010 9:02 AM Aftercare Following ACTIVITIES CDT Joint Replacemen t Knee Joint Replacement by Other Means [facility] NEUROMUSCULAR Routine 01/27/2010 9:02 AM Aftercare Followi ng RE-EDUCATION CDT Joint Replacemen t Knee Joint Replacement by Other Means Z THERAPEUTIC EXERCISES Routine 01/27/2010 9:02 AM Aftercare Following CDT Joint Replacemen t Knee Joint Replacement by Other Means Z HOT OR COLD PACKS Routine 01/27/2010 9:02 AM Aftercare Fol lowing THERAPY CDT Joint Replacemen t Knee Joint Replacement by Other Means documented in this encounter Visit Diagnoses Diagnosis Aftercare following joint replacement Knee joint replacement by other means documented in this encounter Care Teams Deputy District Customs Director Relationship Specialty Start Date End Date Subha Ramirez PA-C PCP - General 02/23/02 03/11/10 [facility] [address] [place] [address] documented as of this encounter
--- OUTSIDE RECORDS SUMMARY | 2022-07-27 08:47 | XMS_ITS | Encounter Summary ---
:1960 Author Organization [facility] Address [address] [place] [address] Care Team Providers Name Role Phone Subha Ramirez PA-C Primary Care Provider [phone] Reason for Visit Reason Comments Knee Pain f/u right, discuss Synvisc/ Supartz Encounter Details Date Type Department Care Team Description 09/17/2009 Office Visit [facility] Primary Localized Orthopedic MD Dipti Osteoarthrosis, Lower [facility] Leg ( Primary Dx) Med ORTHOPEDICS [address] [place] [phone] Social History Tobacco Use Types Packs/Day Years Used Date Smoking Tobacco: Former Cigarettes 1 20 Comments: 07/2008 Alcohol Use Standard Drinks/Week Comments Yes 0 (1 standard drink = 0.6 oz pure alcoho l) very little Sex Assigned at Date Recorded Not on file documented as of this encounter Last Filed Vital Signs Vital Sign Reading Time Taken Comments Blood Pressure 126/82 09/17/2009 3:24 PM MANUFACTURING ENGINEERING TECHNOLOGIST Pulse - - Temperature - - Respiratory Rate - - Oxygen Saturation - - Inhaled Oxygen Concentration - - Weight - - Height - - Body Mass Index - - documented in this encounter Progress Notes Meme Roth - 09/17/2009 3:27 PM CST SUBJECTIVE: Annalisa Jacob is a 48 year old female who is seen in follow-up for right knee that continues to be painful. Patient has been attending water aerobics and did water therapy with minimal change in pain. Visited with Dr. Sims about a TKA. Cancelled the surgery. Has decided to get a second opinion with [place] [facility] [place] No benefit with a second injection of steroid given by Dr. Sims. BP 126/82 LMP Hysterectomy EXAM: GENERAL APPEARANCE: healthy, alert and no distress GAIT: antalgic SKIN: no suspicious lesions or rashes NEURO: Normal strength and tone, mentation intact and speech normal PSYCH: mentation appears normal and affect normal/bright MUSCULOSKELETAL: RIGHT KNEE Inspection: AP/lateral alignment normal, small effusion, No quad atrophy Tender: lateral joint line, medial joint line Non-tender: lateral patellar facet, medial patellar facet, MCL, LCL Active Range of Motion: full flexion, pain with flexion, full extension Strength: quad 5/5, Hamstrings 5/5, Gastroc 5/5, Tibialis anterior 5/5 and Peroneals 5/5 Special tests: normal Valgus stress test, normal Varus, negative Gucci's test, positive hyperflexion external rotation test Also examined: hip full range of motion After risks, benefits and complications of Synvisc injection were discussed with the patient she elected to proceed. Using sterile technique, the area was first prepped with betadyne and an alcohol swab. A 22 gauge needle was used to inject Synvisc into the knee on the right. Annalisa tolerated the procedure well without complications. ASSESSMENT/PLAN: Right knee DJD. Discussed options for treatment. Elected to proceed with Synvisc injections. The first injection was done in the office today. F/u one week for a second injection. X-RAY INTERPRETATION: No Knee X-Rays indicated FACTURING ENGINEERING TECHNOLOGIST documented in this encounter Nursing Notes 09/17/2009 3:15 PM CST >> JARED Barraza Sep 17, 2009 3:27 PM Patient presents with: Knee Pain - f/u right, discuss Synvisc/ Supartz Initial BP 126/82 LMP Hysterectomy Estimated Body mass index is 43.51 kg/(m^2) as calculated from: Height of 5' 11 (1.803 m) as of 09/01/09 Weight of 312 lb (141.522 kg) as of 09/01/09. BP completed using cuff size: daniela Carreno, ATC documented in this encounter Plan of Treatment Not on filedocumented as of this encounter Procedures Procedure Name Priority Date/Time Associated Diagnosis Comme nts HC DRAIN/INJ MAJOR Routine 09/17/2009 4:54 PM MANUFACTURING ENGINEERING TECHNOLOGIST Primary Loca lized JOINT/BURSA W/O US Osteoarthrosis, Lower Leg documented in this encounter Visit Diagnoses Diagnosis Primary localized osteoarthrosis, lower leg - Primary documented in this encounter Care Teams Parking Lot Attendant And Cashier Relationship Specialty Start Date End Date Subha Ramirez PA-C PCP - General 02/23/02 03/11/10 [facility] [address] [place] [phone] documented as of this encounter
--- OUTSIDE RECORDS SUMMARY | 2022-07-27 08:47 | XMS_ITS | Encounter Summary ---
:1960 Author Organization [facility] Address [address] [place] [id number] Care Team Providers Name Role Phone Subha Ramirez PA-C Primary Care Provider [phone] Encounter Details Date Type Department Care Team Description 06/05/2009 Consultation [facility] Damari Al, PT Hospital Results [facility] [address] [place], [place] [address] (Wo rk) Social History Tobacco Use Types Packs/Day Years Used Date Smoking Tobacco: Former Cigarettes 1 20 Comments: 07/2008 Alcohol Use Standard Drinks/Week Comments Yes 0 (1 standard drink = 0.6 oz pure alcoho l) 2 drinks 2x week Sex Assigned at Date Recorded Not on file documented as of this encounter Procedure Notes Damari Hammond, PT - 06/06/2009 10:14 AM CDTAssociated Order(s): CONSULT EMI (PT & CHIRO) FINAL PHYSICAL THERAPY EVALUATION Total Evaluation Time: 45 minutes EVALUATION Summary: Patient presents to aquatic physical therapy with a diagnosis of bilateral knee DJD. Patient's pain is limiting her overall functional mobility. She is also having some lower extremity weakness. Patient will benefit from skilled aquatic physical therapy to address these impairments. Physical Therapy Diagnosis: Musculoskeletal - bilateral knee DJD. Impairments: Patient presents with lower extremity weakness right greater than left, impaired gait and balance, and bilateral knee pain. Prognosis: Good to reach established goals with consistent attendance in physical therapy sessions and follow-through with home program. Plan of Care: Plan to see patient 1-2x/week for 4 visits. Patient does have a pool that she can use. She goes to the [facility] [employer] for water aerobics. Patient's Goals for Physical Therapy: She hopes to decrease her pain and wants to get stronger to be able to go wherever she wants to. She also would like to be able to negotiate stairs with less pain. Physical Therapy Goals (to be met in 4 weeks): 1. Patient will be independent with aquatic exercise program as part of a long- term symptom management program. 2. Patient will be able to ambulate without assistive device up to one-half mile to be able to go grocery shopping without needing to stop and rest or increasing her pain significantly. 3. Patient will be able to negotiate stairs ascending in a step-to gait pattern for improved mobility athome, as well as the parking garage when the elevator is not working. Interventions This Session: Patient was seen for evaluation followed by initiation of aquatic treatment program. Please refer to [facility] flowsheet for details. EVALUATION Physical Therapy Order/Medical Diagnosis: Aquatic therapy for bilateral knee DJD. Chief Complaint/Functional Limitations: Patient is wearing a knee brace/bandage on her right knee. She states she usually wears some sort of brace at all times. She is wearing this brace when she doeswater aerobics. Patient has stairs at home and she is negotiating these in a step-to gait pattern. Patient states she feels very slow on the stairs and would like to be able to do them in a reciprocal pattern. At her parking garage at work when the elevator is not working she needs to use the stairs and this takes her a long time. Prior to receiving the cortisone shot patient was using a single end cane but is currently not using it. Before the cortisone shot patient was unable to stand on one leg to shave her legs in the shower, but she states this has improved since the shot two weeks ago. Patient states she is not doing as much shopping and she tries to avoid any extended walking. She is able to walk a couple of blocks around her neighborhood before pain gets really bad. When she gets up from a sitting position she does compensate and uses her upper extremities and left leg more. She was ableto demonstrate this without upper extremity support. Pain: Yes Comments: 08/24 right greater than left. Medical History: When patient was in high school she had a sports injury where she hyperextended her right knee. She tore her ACL and has had pain on and off since then. Patient states she was told her meniscus is also torn. Per patient, she states she is not a surgical candidate at this time. Current History: Patient had a cortisone injection two weeks ago and this has significantly helped with her pain. She has not had any other treatment since then but she is currently attending water aerobics twice a week. Past Medical History: Insignificant. Medications: Vitamins. Living/Social History: Patient lives in a house with stairs. 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 She is . Learning Barriers: Patient uses reading glasses Education Needs: exercise program SYSTEMS REVIEW Cardiopulmonary: No obvious impairments. Integumentary System: No obvious impairments. Communication, Affect, Cognition: not impaired. Musculoskeletal System Standing: impaired Comments: In standing patient shifts her weight to her left side. She is also lacking 5 degrees of extension bilaterally in standing. Gross ROM Lower Extremities: impaired Comments: Bilateral knee flexion 107 degrees in sitting. Gross Strength Lower Extremities: impaired Comments: Knee extensors on the right 4- and on the left 4+. Knee flexors 4- on the right and 4+ onthe left. Hip flexors 4- bilaterally. Neuromuscular System Comments: Patient reports no numbness or tingling. Locomotion Gait: Patient ambulates with significantly decreased right stance time. Her right lower extremity is externally rotated with a toe out gait. She does have an increase in her bilateral upper extremity swing. FALL RISK SCREEN: 1. Have you fallen 2 or more times in the past year? No. 2. Have you fallen and had an injury in the past year? No. Fall screen completed by physical therapy. Comments: Patient states she has fallen on her knees during the winter but has not had a fall of this year. Transfers: Patient is able to perform sit to stand without upper extremities with a forward lean. Balance: Single leg stance on the right 6 seconds and on the left 4 seconds. Patient is able to perform narrow base of support without any difficulty and is able to perform heel raise without upper extremity support without loss of balance. Thank you for referring Winston Jacob to Physical Therapy. Please call with any questions at [phone]. Electronically signed on 06/06/2009 13:28 by DAMARI HAMMOND PT MT: leilani Name: WINSTON JACOB MRN: [id number] Account: [id number] : 1960 Visit Date: 06/05/2009 Sex: F Age: 48 Document: [id number] documented in this encounter Plan of Treatment Not on filedocumented as of this encounter Procedures Procedure Name Priority Date/Time Associated Diagnosis Comme nts [facility] EMI PT AND HAND 06/05/2009 4:48 PM Res ults for this REFERRAL CDT procedure are i n the results section. documented in this encounter Results CONSULT EMI (PT & CHIRO) (06/05/2009 4:48 PM CDT) Transcriptions Damari Hammond PT - 06/06/2009 10:14 A M CDT FINAL PHYSICAL THERAPY EVALUATION Total Evaluation Time: 45 minutes EVALUATION Summary: Patient presents to aquatic ysical therapy with a diagnosis of bilateral knee DJD. Patient's pain is limiting her overall functional mobility. She is also having some lower extremity weakness. Patient will benefit from skilled aquatic physical th erajarrod to address these impairments. Physical Therapy Diagnosis: Musculoskel etal - bilateral knee DJD. Impairments: Patient presents with lowe r extremity weakness right greater than left, impaired gait and balance, and bilateral knee pain. Prognosis: Good to reach established go als with consistent attendance in physical therapy sessions and follow-through with home program. Plan of Care: Plan to see patient 1-2x/ week for 4 visits. Patient does have a pool that she can use. She goes to the [facility] [employer] for water aerobics. Patient's Goals for Physical Therapy: S he hopes to decrease her pain and wants to get stronger to be able to go wherever she wants to. She also would like to be able to negotiate stairs with less pain. Physical Therapy Goals (to be met in 4 weeks): 1. Patient will be independent with aqu at exercise program as part of a long- term symptom management program. 2. Patient will be able to ambulate without assistive device up to one-half mile to be able to go grocery shopping without needing to stop and res t or increasing her pain significantly. 3. Patient will be able to negotiate stairs ascending in a step-to gait pattern for improved mobility at home, as well as the parking garage when the elevator is not working. Interventions This Session: Patient was seen for evaluation followed by initiation of aquatic treatment program. Please refer to pool flowsheet for details. EVALUATION Physical Therapy Order/Medical Diagnosi s: Aquatic therapy for bilateral knee DJD. Chief Complaint/Functional Limitations: Patient is wearing a knee brace/bandage on her right knee. She states she usually wears some sort of brace at all times. She is wearing this brace when she does water aerobics. Patient has stairs at home and she is negotiating these in a step-to gait pattern. Patient states she feels very slow on the stairs and would like to be able to do them in a reciprocal pattern. At her parking garage at work when the elevator is not working she needs to use the stairs and this takes her a long time. Prior to receiving the cortisone shot patient was using a single end cane but is currently not using it. Before the cortisone shot patient was un able to stand on one leg to shave her legs in the shower, but she states this has improved since the shot two weeks ago. Patient states she is not doing as much shopping and she tries to avoid any extended walking. She is able to walk a couple of blocks around her neighborhood before pain gets really bad. When she gets up from a sitting position she does compensate and uses her upper extremities and left leg more. She was a ble to demonstrate this without upper extremity support. Pain: Yes Comments: 08/24 right greater than left. Medical History: When patient was in [employer] school she had a sports injury where she hyperextended her right knee. She tore her ACL and has had pain on and off since then. Patient states she was told her meniscus is also torn. Per patient, she states she is not a surgical candidate at this time. Current History: Patient had a cortison e injection two weeks ago and this has significantly helped with her pain. She has not had any other treatment since then but she is currently attending water aerobics twice a week. Past Medical History: Insignificant. Medications: Vitamins. Living/Social History: Patient lives in a house with stairs. 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 She is . Learning Barriers: Patient uses reading glasses Education Needs: exercise program SYSTEMS REVIEW Cardiopulmonary: No obvious impairments . Integumentary System: No obvious impair ments. Communication, Affect, Cognition: not i mpaired. Musculoskeletal System Standing: impaired Comments: In standing patient shifts he r weight to her left side. She is also lacking 5 degrees of extension bilaterally in standing. Gross ROM Lower Extremities: impaired Comments: Bilateral knee flexion 107 de grees in sitting. Gross Strength Lower Extremities: impaired Comments: Knee extensors on the right 4 - and on the left 4+. Knee flexors 4- on the right and 4+ on the left. Hip flexors 4- bilaterally. Neuromuscular System Comments: Patient reports no numbness o r tingling. Locomotion Gait: Patient ambulates with significan tly decreased right stance time. Her right lower extremity is externally rotated with a toe out gait. She does have an increase in her bilateral upper extremity swing. FALL RISK SCREEN: 1. Have you fallen 2 or more times in t he past year? No. 2. Have you fallen and had an injury in the past year? No. Fall screen completed by physical therjefry garay. Comments: Patient states she has fallen on her knees during the winter but has not had a fall of this year. Transfers: Patient is able to perform s it to stand without upper extremities with a forward lean. Balance: Single leg stance on the right 6 seconds and on the left 4 seconds. Patient is able to perform narrow base of support without any difficulty and is able to perform heel raise without upper extremity support without loss of balance. Thank you for referring Winston Jacob to Physical Therapy. Please call with any questions at [phone]. Electronically signed on 06/06/2009 13: 28 by DAMARI HAMMOND PT MT: leilani Name: WINSTON JACOB Account: [id number] : 1960 Visit Date: 06/05/2009 Sex: F Age: 48 Document: [id number] Damari Al PT REFERRAL documented in this encounter Visit Diagnoses Not on filedocumented in this encounter Care Teams Fundraising Manager Relationship Specialty Start Date End Date Subha Ramirez PA-C PCP - General 02/23/02 03/11/10 [facility] [address] [place] [address] documented as of this encounter
--- OUTSIDE RECORDS SUMMARY | 2022-07-27 08:47 | XMS_ITS | Encounter Summary ---
:1960 Author Organization [place] Address [address] [place] [address] Care Team Providers Name Role Phone Subha Ramirez PA-C Primary Care Provider [phone] Reason for Referral Office Workup No CT/MRI - Closed Specialty Diagnoses / Procedures Referred By Contact Refer red To Contact Diagnoses Obesity, unspecified Pam Walters MD [facility] OP [address] [facility] [address] [facility] [place] [address] [place] [address] Phone: [phone] Referral ID Status Reason Start Date Expiration Date Visits Requ ested Visits Authorized [id number] Closed 09/01/2009 08/14/2011 1 1 TER Reason for Visit Reason Comments Pre-Op Exam surgery on 09/09/2009 at [facility] H Encounter Details Date Type Department Care Team Description 09/01/2009 Office Visit [facility] Pam Walters MD Preop General Physical Exam (Primary Dx) ; Clinic [facility] OBESITY NOS; [address] [facility] Joint Pain [place], [place] [address] [address] [place] [address] [phone] Social History Tobacco Use Types Packs/Day Years Used Date Smoking Tobacco: Former Cigarettes 1 20 Comments: 07/2008 Alcohol Use Standard Drinks/Week Comments Yes 0 (1 standard drink = 0.6 oz pure alcoho l) very little Sex Assigned at Date Recorded Not on file documented as of this encounter Last Filed Vital Signs Vital Sign Reading Time Taken Comments Blood Pressure 128/86 09/01/2009 4:11 PM LIGHTER Pulse 84 09/01/2009 4:11 PM LIGHTER Temperature 36.8 ??C (98.2 ??F) 09/01/2009 4:11 PM LIGHTER Respiratory Rate - - Oxygen Saturation 98% 09/01/2009 4:11 PM LIGHTER Inhaled Oxygen Concentration - - Weight 141.5 kg (312 lb) 09/01/2009 4:11 PM LIGHTER Height 180.3 cm (5' 11) 09/01/2009 4:11 PM LIGHTER Body Mass Index 43.52 09/01/2009 4:11 PM LIGHTER documented in this encounter Progress Notes Pam Walters - 09/01/2009 4:24 PM CST HPI: rt knee replacement High bp in past, no htn-no headache, no vision isuse,no cp or no sob Obesity-not having any snoring, no prior sleep apnea hx Multiple sites jointaches-hx of arthritis at back and knee and at times feels her both upper ext painful, no hand isuses, but positive for off and on foot and ankle pain, swelling in past, was told arthritis related, pt is doing swimming right now and helps a lot iwht this, no fhx of autoimmune dis See problem list for active medical problems. Problems all longstanding and stable, except as noted/documented. See ROS for pertinent symptoms related to these conditions. . Patient Active Problem List Diagnoses Date Noted ??? Elevated Blood Pressure Reading without Diagnosis of Hypertension [796.2] 01/02/2009 ??? BACKACHE NOS [724.5] 02/14/2006 ??? PAIN IN LIMB [729.5] 02/14/2006 ??? OBESITY NOS [278.00] 02/04/2005 Past Medical History Diagnosis Date ??? Obesity, Unspecified ??? Tobacco Use Disorder quited in 07/2008 ??? Absence of Menstruation surgical menopause ??? Degeneration of Intervertebral Disc, Site Unspecified 03/20 MRI, mild DDD, mild bulging L3-4 Past Surgical History Procedure Date ??? Nonspecific procedure s/p x 1 ??? Nonspecific procedure 1997 L ovarian removal secondary to benign cyst ??? Nonspecific procedure 1997 s/p tubal ligation ??? Nonspecific procedure s/p hysterectomy & R ovary removed-fibroids ??? Nonspecific procedure 08/15 s/p cholecystectomy Current outpatient prescriptions Medication Sig ??? UNKNOWN MED DOSAGE taking prenatel and calcium D ??? NO ACTIVE MEDICATIONS . OTC products: None, except as noted above Allergies Allergen Reactions ??? Penicillins Latex Allergy: NO History Substance Use Topics ??? Tobacco Use: Quit -- 1.0 packs/day for 20 years 07/2008 ??? Alcohol Use: Yes very little History Drug Use No REVIEW OF SYSTEMS: C: NEGATIVE for fever, chills, change in weight E/M: NEGATIVE for ear, mouth and throat problems R: NEGATIVE for significant cough or SOB CV: NEGATIVE for chest pain, palpitations or peripheral edema EXAM: BP 128/86 Pulse 84 Temp (Src) 98.2 ??F (36.8 ??C) (Oral) Ht 5' 11 (1.803 m) Wt 312 lb (141.522 kg) SpO2 98% LMP Hysterectomy GENERAL APPEARANCE: healthy, alert and no distress HENT: ear canals and TM's normal and nose and mouth without ulcers or lesions RESP: lungs clear to auscultation - no rales, rhonchi or wheezes CV: regular rate and rhythm, normal S1 S2, no S3 or S4 and no murmur, click or rub ABDOMEN: soft, nontender, no HSM or masses and bowel sounds normal NEURO: Normal strength and tone, sensory exam grossly normal, mentation intact and speech normal DIAGNOSTICS: Preop Testing EKG: appears normal, NSR, normal axis, normal intervals, no acute ST/T changes c/w ischemia, no LVH by voltage criteria Labs: see FCIS IMPRESSION: Reason for surgery/procedure: knee pain and arthritis Diagnosis/reason for consult: medical clerenjosé miguel V72.83H Preop General Physical Exam (primary encounter diagnosis) Comment: Plan: CBC WITH PLATELETS, UA MICRO IF POSITIVE, ELECTROCARDIOGRAM, COMP W/READ 278.00 OBESITY NOS Comment: Plan: CONSULT NUTRITION SERVICES Advised diet and exerc ise Agrees to see nutrition 215.40A Joint Pain Comment: Plan: RHEUMATOID FACTOR, SED RATE, AUTO, ANTINUCLEAR ANTIBODIES, URIC ACID Check above to make sure no inflammatory arthritis The proposed surgical procedure is considered INTERMEDIATE risk due to obeisty, pt declined snoring and no phx of sleep apnea/sleep study in past For above listed surgery and anesthesia: Patient is at MODERATE risk for surgery/procedure and perioperative/procedure complications. RECOMMENDATIONS: --Approval given to proceed with proposed procedure, without further diagnostic evaluation. --Consult hospital rounder / IM to assist post-op medical management. Signed Electronically by: Pam Walters MD Copy of this evaluation report is provided to requesting physician. Preop Guidelines TER Neal Johansen - 09/01/2009 4:16 [place] [address] PRE-OP EVALUATION: Today's date: 09/01/2009 Annalisa Jacob (: 1960) presents for pre-operative evaluation assessment as requested by Dr. Jj Menjivar. She requires evaluation and anesthesia risk assessment prior to undergoing surgery/procedure for treatment of right knee . Proposed procedure: right knee placement Date of Surgery/ Procedure: 09/09/2009 Time of Surgery/ Procedure: 10:30am Hospital/Surgical Facility: [facility] Fax number for surgical facility: [phone] Primary Physician: Dr Pam Walters Type of Anesthesia Anticipated: to be determined History of anesthesia complications: NONE History of abnormal bleeding: NONE History of blood transfusions: NO Patient has a Health Care Directive or Living Will: NO 1- NO - Do you ever have any pain or discomfort in your chest? 2- NO - Have you ever had a severe pain across the front of your chest lasting for half an hour or more? 3- YES - Do you have swelling in your feet or ankles at times? Right ankle in the past, was told it was arthritis 4- NO - Are you troubled by shortness of breath when: walking on the level/ up a slight hill/ at night? 5- NO - Does your chest ever sound wheezy or whistling? 6- NO - Do you currently have a cold, bronchitis or other respiratory infection? 7- NO - Have you had a cold, bronchitis or other respiratory infection within the last 2 weeks? 8- NO - Do you usually have a cough? 9- NO - Do you sometimes get pains in the calves of your legs when you walk? 10-NO - Do you or anyone in your family have previous history of blood clots? 11-NO - Do you or does anyone in your family have serious bleeding problem such as prolonged bleeding following surgeries or cuts? 12-NO - Have you ever had problems with anemia or been told to take iron pills? 13-NO - Have you had any abnormal blood loss such as black, tarry or bloody stools, or abnormal vaginal bleeding? 14-NO - Have you or any of your relatives ever had problems with anesthesia? 15-NO - Do you snore or stop breathing at night? 16-NO - Do you have any prosthetic heart valves or joints? 17-NO - Is there any chance that you may be ? TER documented in this encounter Nursing Notes 09/01/2009 4:00 PM CST >> NEAL JOHANSEN Mon Sep 01, 2009 4:17 PM Patient presents with: Pre-Op Exam - surgery on 09/09/2009 at [facility] Initial BP 128/86 Pulse 84 Temp (Src) 98.2 ??F (36.8 ??C) (Oral) Ht 5' 11 (1.803 m) Wt 312 lb (141.522 kg) SpO2 98% LMP Hysterectomy Body mass index is 43.51 kg/(m^2).. BP completed using cuff size: daniela Johansen PARKER documented in this encounter Plan of Treatment Not on filedocumented as of this encounter Procedures Procedure Name Priority Date/Time Associated Comments Diagnosis ZZC Routine 09/01/2009 5:01 PM Preop General Results for this ELECTROCARDIOGRAM, LIGHTER Physical Exam procedur e are in COMP W/READ the results section. HCL UA MICRO IF Routine 09/01/2009 4:41 PM Preop General Resul ts for this POSITIVE LIGHTER Physical Exam procedure are in the results section. CL AFF CBC WITH Routine 09/01/2009 4:40 PM Preop General Resul ts for this PLATELETS LIGHTER Physical Exam procedure are in the results section. HCL RHEUMATOID FACTOR Routine 09/01/2009 4:40 PM Joint Pain Results for this LIGHTER procedure are i n the results section. CL AFF ANTINUCLEAR Routine 09/01/2009 4:40 PM Joint Pain Res ults for this ANTIBODIES LIGHTER procedure are i n the results section. HCL SED RATE (ESR) Routine 09/01/2009 4:40 PM Joint Pain Res ults for this LIGHTER procedure are i n the results section. HCL URIC ACID Routine 09/01/2009 4:40 PM Joint Pain Results for this LIGHTER procedure are i n the results section. documented in this encounter Results ELECTROCARDIOGRAM, COMP W/READ (09/01/2009 5:01 PM LIGHTER) Narrative This result has an attachment that is no t available. Pam Walters MD EKG TECHNICAL (ABNORMAL) UA MICRO IF POSITIVE (09/01/2009 4:41 PM LIGHTER) [facility] Method Time Signature Color Urine Yellow [facility] Appearance Urine Clear [facility] Glucose Urine Negative NEG mg/dL [facility] Bilirubin Urine Negative NEG [facility] Ketones Urine Negative NEG mg/dL [facility] Specific [place] <=1.005 1.003 - [place] Urine 1.035 [facility] Blood Urine Negative NEG [facility] pH Urine 7.5 (H) 5.0 - 7.0 [place] pH [facility] Protein Albumin Negative NEG mg/dL [facility] Urobilinogen 0.2 0.2 - 1.0 [place] Urine EU/dL [facility] Nitrite Urine Negative NEG [facility] Leukocyte Negative NEG [place] Esterase Urine [facility] Source Midstream [facility] Specimen Anatomical Collection Method Collection Time Receive d Time (Source) Location / / Volume Laterality 09/01/2009 4:41 PM 0 4:43 LIGHTER PM LIGHTER Pam Walters MD LABORATORY Performing Organization Address City/State/ZIP Code Phon e Number [facility] [phone] [place] [address] [facility] URIC ACID (09/01/2009 4:40 PM LIGHTER) P athologist Signature Uric Acid 6.0 2.5 - 7.5 [place] AURY mg/dL [facility] Specimen Anatomical Collection Method Collection Time Receive d Time (Source) Location / / Volume Laterality 09/01/2009 4:40 PM 0 4:42 LIGHTER PM LIGHTER Pam Walters MD LABORATORY Performing Organization Address City/State/ZIP Code Phon e Number [facility] [address] [place] [address] [facility] ANTINUCLEAR ANTIBODIES (09/01/2009 4:40 PM LIGHTER) Patholo gist Method Time Signature GERBER Screen by <1.0 0 - 1.0 [facility] EIA Interpretation: ??Negative [facility] [place] [facility] Specimen Anatomical Collection Method Collection Time Receive d Time (Source) Location / / Volume Laterality 09/01/2009 4:40 PM 0 4:42 LIGHTER PM LIGHTER Pam Walters MD LABORATORY Performing Organization Address City/State/ZIP Code Phon e Number [address] LABS SED RATE, AUTO (09/01/2009 4:40 PM LIGHTER) P athologist Signature Sed Rate 12 0 - 30 mm/h [facility] Specimen Anatomical Collection Method Collection Time Receive d Time (Source) Location / / Volume Laterality 09/01/2009 4:40 PM 0 4:42 LIGHTER PM LIGHTER Pam Walters MD LABORATORY Performing Organization Address City/State/ZIP Code Phon e Number [facility] [phone] [place] [address] [facility] RHEUMATOID FACTOR (09/01/2009 4:40 PM LIGHTER) P athologist Signature Rheumatoid <7 0 - 14 [facility] Factor IU/mL [place] [facility] Specimen Anatomical Collection Method Collection Time Receive d Time (Source) Location / / Volume Laterality 09/01/2009 4:40 PM 0 4:42 LIGHTER PM LIGHTER Pam Walters MD LABORATORY Performing Organization Address City/State/ZIP Code Phon e Number [facility] [phone] [facility]S CBC WITH PLATELETS (09/01/2009 4:40 PM LIGHTER) P athologist Signature WBC 8.2 4.0 - 11.0 [place] 10e9/L [facility] RBC Count 4.78 3.8 - 5.2 [place] 10e12/L [facility] Hemoglobin 14.1 11.7 - [place] 15.7 g/dL [facility] Hematocrit 42.7 35.0 - [place] 47.0 % [facility] MCV 89 78 - 100 [facility] MCH 29.5 26.5 - [facility] 33.0 pg [facility] MCHC 33.0 31.5 - [place] 36.5 g/dL [facility] RDW 13.3 10.0 - [place] 15.0 % [facility] Platelet Count 432 150 - 450 [place] 10e9/L [facility] Specimen Anatomical Collection Method Collection Time Receive d Time (Source) Location / / Volume Laterality 09/01/2009 4:40 PM 0 4:42 LIGHTER PM LIGHTER Pam Walters MD LABORATORY Performing Organization Address City/State/ZIP Code Phon e Number [facility] [phone] [place] [address] [facility] documented in this encounter Visit Diagnoses Diagnosis Preop general physical exam - Primary Other specified pre-operative examinatio n OBESITY NOS Obesity, unspecified Joint pain Pain in joint, site unspecified documented in this encounter Care Teams Calculator Operator Relationship Specialty Start Date End Date Subha Ramirez PA-C PCP - General 02/23/02 03/11/10 [facility] [address] [place] [phone] documented as of this encounter
--- OUTSIDE RECORDS SUMMARY | 2022-07-27 08:47 | XMS_ITS | Encounter Summary ---
:1960 Author Organization [place] Address [address] [place] [address] Care Team Providers Name Role Phone Subha Ramirez PA-C Primary Care Provider [phone] Reason for Referral Referral not Required - Closed Specialty Diagnoses / Procedures Referred By Contact Refer red To Contact Diagnoses Pain in joint, lower leg Pam Walters MD [facility] CL[facility] C [address] [place] [phone] Referral ID Status Reason Start Date Expiration Date Visits Requ ested Visits Authorized [id number] Closed 10/20/2009 08/14/2011 1 1 [employer] Encounter Details Date Type Department Care Team Description 10/20/2009 Orders Only [facility] Pam Walters MD Pain in Joint, Lower Clinic [facility] Leg (Primary Dx) [address] [place], [place] [address] [facility] [address] [place] [address] Social History Tobacco Use Types [...] encounter Visit Diagnoses Diagnosis Pain in joint, lower leg - Primary documented in this encounter Care Teams Solar Hot Water Installer Relationship Specialty Start Date End Date Subha Ramirez PA-C PCP - General 02/23/02 03/11/10 [facility] [address] [place] [address] documented as of this encounter
--- OUTSIDE RECORDS SUMMARY | 2022-07-27 08:47 | XMS_ITS | Encounter Summary ---
:1960 Author Organization [place] Address [address] [place] [address] Care Team Providers Name Role Phone Subha Ramirez PA-C Primary Care Provider [phone] Reason for Visit Reason Comments Pre-Op Exam surgery on 12/24 Encounter Details Date Type Department Care Team Description 12/17/2009 Office Visit [facility] Pam Walters MD Preop General Physical Exam (Primary Dx) ; Clinic [facility] OBESITY NOS; [address] [facility] Other Screening Mammogram; [place], [place] [address] Weight Loss; [id number] [place] [address] Screening for Diabetes Mellitus; [phone] Screening for L ipoid Disorders; (Work) Anxiety Social History Tobacco Use Types Packs/Day Years Used Date Smoking Tobacco: Former Cigarettes 1 20 Comments: 07/2008 Alcohol Use Standard Drinks/Week Comments Yes 0 (1 standard drink = 0.6 oz pure alcoho l) very little Sex Assigned at Date Recorded Not on file documented as of this encounter Last Filed Vital Signs Vital Sign Reading Time Taken Comments Blood Pressure 110/72 12/17/2009 9:12 AM CDT Pulse 72 12/17/2009 9:12 AM CDT Temperature 36.9 ??C (98.4 ??F) 12/17/2009 9:12 AM CDT Respiratory Rate - - Oxygen Saturation 98% 12/17/2009 9:12 AM CDT Inhaled Oxygen Concentration - - Weight 138.3 kg (305 lb) 12/17/2009 9:12 AM CDT Height 180.3 cm (5' 11) 12/17/2009 9:12 AM CDT Body Mass Index 42.54 12/17/2009 9:12 AM CDT documented in this encounter Progress Notes Pam Walters - 12/17/2009 9:29 AM CDT HPI: rt knee replacement Obesity Working on weight reduction, hard to do due to knee issues, swimming right now And current weight loss is intentional Hx of anxiety Pt has tried doing knee surgery in past, gets very nervous about surgery, would like to have antianxiety med on hand, someone at work suggested xanax, would like to have on hand No hx of depression, but at times feels worried about surgery No hx of day to day anxiety issues No habits See problem list for active medical problems. [...] cholecystectomy Current outpatient prescriptions Medication Sig ??? MULTI-VITAMIN OR TABS ONE TABLET DAILY ??? CALCIUM + D 600-200 MG-UNIT PO TABS ONE TABLET DAily WITH MEALS ??? SYNVISC 8 MG/ML IX INJ 2 ML WEEKLY FOR 3 WEEKS ??? NO ACTIVE MEDICATIONS . OTC products: None, except as noted above Allergies Allergen Reactions ??? Penicillins ??? Latex Rash, redness, swelling Latex Allergy: possible allergies, had local reaction with band-aid History Substance Use Topics ??? Tobacco Use: Quit -- 1.0 packs/day for 20 years 07/2008 ??? Alcohol Use: Yes very little History Drug Use No REVIEW OF SYSTEMS: C: NEGATIVE for fever, chills, change in weight E/M: NEGATIVE for ear, mouth and throat problems R: NEGATIVE for significant cough or SOB CV: NEGATIVE for chest pain, palpitations or peripheral edema EXAM: BP 110/72 Pulse 72 Temp(Src) 98.4 ??F (36.9 ??C) (Oral) Ht 5' 11 (1.803 m) Wt 305 lb (138.347 kg) SpO2 98% GENERAL APPEARANCE: healthy, alert and no distress [...] and speech normal DIAGNOSTICS: Preop Testing EKG: Not indicated Labs: see FCIS IMPRESSION: Reason for surgery/procedure: knee pain Diagnosis/reason for consult: medical clerance 278.00 OBESITY NOS Plan: TSH W/FREE T4 REFLEX, GLUCOSE, A.M.A. LIPID PANEL Comment: advised to work on this V72.83H Preop General Physical Exam (primary encounter diagnosis) Plan: CBC WITH PLATELETS, UA MICRO IF POSITIVE Comment: V76.12 Other Screening Mammogram Plan: Comment: pt has already set up for this 783.21Q Weight Loss Plan: Comment: intentional, advised to continue to work on this V77.1 Screening for Diabetes Mellitus Plan: GLUCOSE Comment: V77.91 Screening for Lipoid Disorders Plan: A.M.A. LIPID PANEL Comment: 300.00E Anxiety Plan: XANAX 0.25 MG PO TABS Comment: pt to use prn xanax, possible risks,benefits and side effects discussed with pt The proposed surgical procedure is considered INTERMEDIATE risk. For above listed surgery and anesthesia: Patient is at MODERATE risk for surgery/procedure and perioperative/procedure complications. RECOMMENDATIONS: --Approval given to proceed with proposed procedure, without further diagnostic evaluation. -with her body weight,possible sleep apnea, pt declined snoring or prior sleep study Signed Electronically by: Pam Walters MD Copy of this evaluation report is provided to requesting physician. Preop Guidelines Eleno Neal - 12/17/2009 9:17 AM CDT [facility] [id number] [place], [place] [id number] PRE-OP EVALUATION: Today's date: 12/17/2009 Annalisa Jacob (: 1960) presents for pre-operative evaluation assessment as requested by Dr. Haywood. She requires evaluation and anesthesia risk assessment prior to undergoing surgery/procedure for treatment of right knee . Proposed procedure: right knee replacement Date of Surgery/ Procedure: 12/24/2009 Time of Surgery/ Procedure: [facility] Hospital/Surgical Facility: [place] [phone] Primary Physician: Dr Pam Walters Type of Anesthesia Anticipated: Spinal History of anesthesia complications: NONE History of [...] in your feet or ankles at times? Arthritis in right ankle 4- NO - Are you troubled by [...] any chance that you may be ? documented in this encounter Nursing Notes 12/17/2009 9:00 AM CDT >> NEAL JOHANSEN Wed December 17, 2009 9:18 AM Patient presents with: Pre-Op Exam - surgery on 12/24 Initial BP 110/72 Pulse 72 Temp(Src) 98.4 ??F (36.9 ??C) (Oral) Ht 5' 11 (1.803 m) Wt 305 lb (138.347 kg) SpO2 98% Estimated Body mass index is 42.54 kg/(m^2) as calculated from the following: Height as of this encounter: 5' 11(1.803 m). Weight as of this encounter: 305 lb(138.347 kg).. BP completed using cuff size: large Neal Johansen PROTOTYPE CARPENTER Advised pap is due, but pt had hysterectomy, mammo sched, on 12/19/2009 documented in this encounter Plan of Treatment Not on filedocumented as of this encounter Procedures Procedure Name Priority Date/Time Associated Diagnosis Comme nts HCL UA MICRO IF Routine 12/17/2009 9:53 AM Preop General Resul ts for this POSITIVE CDT Physical Exam procedure are in the results section. CL AFF CBC WITH Routine 12/17/2009 9:42 AM Preop General Resul ts for this PLATELETS CDT Physical Exam procedure are in the results section. HCL TSH W/FREE T4 Routine 12/17/2009 9:42 AM OBESITY NOS Resu lts for this REFLEX CDT procedure are i n the results section. HCL GLUCOSE Routine 12/17/2009 9:42 AM OBESITY NOS Results for this CDT Screening for procedure are in Diabetes Mellitus the result s section. CL AFF A.M.A. LIPID Routine 12/17/2009 9:42 AM OBESITY N OS Results for this PANEL CDT Screening for Lipoid procedu re are in Disorders the results section. documented in this encounter Results (ABNORMAL) UA MICRO IF POSITIVE (12/17/2009 9:53 AM CDT) Patholo gist Method Time Signature Color Urine Yellow [facility] Appearance Urine Clear [facility] Glucose Urine Negative NEG mg/dL [facility] Bilirubin Urine Negative NEG [facility] Ketones Urine Trace (A) NEG mg/dL [facility] Specific Bud 1.020 1.003 - [place] Urine 1.035 [facility] Blood Urine Negative NEG [facility] pH Urine 8.0 (H) 5.0 - 7.0 [place] pH [facility] Protein Albumin Negative NEG mg/dL [facility] Urobilinogen 1.0 0.2 - 1.0 [place] Urine EU/dL [facility] Nitrite Urine Negative NEG [facility] Leukocyte Negative NEG [place] Esterase Urine [facility] Source Midstream [facility] Specimen Anatomical Collection Method Collection Time Receive d Time (Source) Location / / Volume Laterality 12/17/2009 9:53 AM 0 9:56 CDT AM CDT Pam Walters MD LABORATORY Performing Organization Address City/State/ZIP Code Phon e Number [facility] [id number] [facility] [place] [address] [facility] (ABNORMAL) A.M.A. LIPID PANEL (12/17/2009 9:42 AM CDT) P athologist Signature Cholesterol 180 0 - 200 [place] [facility] mg/dL CLINIC LAB Comment: LDL Cholesterol is the primary guide to therapy. The NCEP recommends further evaluation of: patients with cholesterol <200 mg/dL if additional risk factors are present, cholesterol >240 mg/dL, triglycerides >150 mg/dL, or HDL <40 mg/dL. Triglycerides 117 0 - 150 mg/dL [facility] HDL Cholesterol 42 (L) 50 - 110 mg/dL [facility] LDL Cholesterol Calculated 115 0 - 129 mg/dL [facility] Comment: LDL Cholesterol is the primary guide to therapy: LDL-cholesterol goal in high risk patients is <100 mg/dL and in very high risk patients is <70 mg/dL. VLDL-Cholesterol 23 0 - 30 mg/dL [facility] Cholesterol/HDL Ratio 4.3 0.0 - 5.0 [facility] Specimen Anatomical Collection Method Collection Time Receive d Time (Source) Location / / Volume Laterality 12/17/2009 9:42 AM 0 9:44 CDT AM CDT Pam Walters MD LABORATORY Performing Organization Address City/[facility]/ZIP Code Phon e Number [address] [address] [phone] [facility] GLUCOSE (12/17/2009 9:42 AM CDT) athologist Signature Glucose 94 60 - 99 [facility] mg/dL CLINIC LAB Specimen Anatomical Collection Method Collection Time Receive d Time (Source) Location / / Volume Laterality 12/17/2009 9:42 AM 0 9:44 CDT AM CDT Pam Walters MD LABORATORY Performing Organization Address City/[facility] Code Phon e Number [address] [address] [phone] [facility] CBC WITH PLATELETS (12/17/2009 9:42 AM CDT) P athologist Signature WBC 6.9 4.0 - 11.0 [place] 10e9/L [facility] RBC Count 5.11 3.8 - 5.2 [place] 10e12/L [facility] Hemoglobin 15.2 11.7 - [place] 15.7 g/dL [facility] Hematocrit 45.4 35.0 - REPLACED BY [facility] 47.0 % [facility] MCV 89 78 - 100 [facility] MCH 29.7 26.5 - [place] 33.0 pg [facility] MCHC 33.5 31.5 - [place] 36.5 g/dL [facility] RDW 12.9 10.0 - [place] 15.0 % [facility] Platelet Count 407 150 - 450 [place] 10e9/L [facility] Specimen Anatomical Collection Method Collection Time Receive d Time (Source) Location / / Volume Laterality 12/17/2009 9:42 AM 0 9:44 CDT AM CDT Pam Walters MD LABORATORY Performing Organization Address City/State/ZIP Code Phon e Number [facility] [phone] [place] [address] [facility] TSH W/FREE T4 REFLEX (12/17/2009 9:42 AM CDT) P athologist Signature TSH 1.09 0.4 - 5.0 [facility] mU/L [facility] Specimen Anatomical Collection Method Collection Time Receive d Time (Source) Location / / Volume Laterality 12/17/2009 9:42 AM 0 9:44 CDT AM CDT Pam Walters MD LABORATORY Performing Organization Address City/State/ZIP Code Phon e Number [facility] [address] [place] [address] [facility] documented in this encounter Visit Diagnoses Diagnosis Preop general physical exam - Primary Other specified pre-operative examinatio n OBESITY NOS Obesity, unspecified Other screening mammogram Weight loss Loss of weight Screening for diabetes mellitus Screening for lipoid disorders Anxiety Anxiety state, unspecified documented in this encounter Care Teams Cosmetology Educator Relationship Specialty Start Date End Date Subha Ramirez PA-C PCP - General 02/23/02 03/11/10 [facility] [address] [place] [address] documented as of this encounter
--- OUTSIDE RECORDS SUMMARY | 2022-07-27 08:47 | XMS_ITS | Encounter Summary ---
:1960 Author Organization [place] Address [address] [place] [address] Care Team Providers Name Role Phone Subha Ramirez PA-C Primary Care Provider [phone] Reason for Referral Referral not Required - Closed Specialty Diagnoses / Procedures Referred By Contact Refer red To Contact Diagnoses Knee pain Pam Waltres MD [facility] [address] [place] [address] [place] [address] Phone: [phone] Fax: [phone] Referral ID Status Reason Start Date Expiration Date Visits Requ ested Visits Authorized [id number] Closed 06/16/2009 08/14/2011 1 1 OR LANDSCAPER/GARDENER Reason for Visit Reason Onset Date Comments Referral 06/13/2009 Referral for second opinion Encounter Details Date Type Department Care Team Description 06/13/2009 Telephone [facility] Pam Walters MD Referral (Referral for Clinic [facility] second opinion ) [address] [place], [place] [address] [facility] [phone] [place] [address] (Wo rk) Social History Tobacco Use Types Packs/Day Years Used Date Smoking Tobacco: Former Cigarettes 1 20 Comments: 07/2008 Alcohol Use Standard Drinks/Week Comments Yes 0 (1 standard drink = 0.6 oz pure alcoho l) 2 drinks 2x week Sex Assigned at Date Recorded Not on file documented as of this encounter Miscellaneous Notes Telephone Encounter - Nick Lindsey - 06/18/2009 3:13 PM CST Left voice message at stating that referral was re-entered with Dr. Ewing's name. Advised patient toreturn my call with any qusetions. Nick Lindsey RN Spoke with patient on cell phone and gave message. Nick Lindsey RN OR LANDSCAPER/GARDENER Telephone Encounter - Dotty Robertson - 06/18/2009 12:[address] Ewing with [facility] is within our system. All ortho referrals go through the [facility]. I will put in another one stating the pt requests Dr. Ewing. OR LANDSCAPER/GARDENER Telephone Encounter - Pam Walters - 06/18/2009 12:09 PM CST Dotty, Can you help with this and let pt know Thanks Pam Walters MD OR LANDSCAPER/GARDENER Telephone Encounter - Nick Lindsey - 06/17/2009 3:41 PM CST Can you change referral please? Nick Lindsey RN OR LANDSCAPER/GARDENER Telephone Encounter - Paula Casiano - 06/17/2009 9:14 AM CST [facility] They only work within [place]. She wants to go outside of [place]. She wants to be referred to Dr Sims, [facility], . [place] 11-3@9:13am OR LANDSCAPER/GARDENER Telephone Encounter - Pam Walters - 06/16/2009 5:07 PM CST Please call ortho concerige and have them help with this Pam Walters MD OR LANDSCAPER/GARDENER Telephone Encounter - Nick Lindsey - 06/13/2009 3:38 PM CDT Patient requesting a referral for a second opinion. Can you do this? Nick Lindsey RN Telephone Encounter - Nick Lindsey - 06/13/2009 3:36 PM CDT Staff Message copied by NICK LINDSEY on TueJun 13, 2009 3:36 PM ------ Message from: PAULA CASIANO Created: TueJun 13, 2009 3:30 PM Regarding: Referral/Romeo Contact: Annalisa wants a second opinion. She needs a referral to Dr Sims at [facility], . Annalisa can be reached at [phone] , . DL 06-13@3:32pm documented in this encounter Plan of Treatment Not on filedocumented as of this encounter Visit Diagnoses Diagnosis Knee pain - Primary Pain in joint, lower leg documented in this encounter Care Teams Service Specialist Relationship Specialty Start Date End Date Subha Ramirez PA-C PCP - General 02/23/02 03/11/10 [facility] [address] [place] [address] documented as of this encounter
--- OUTSIDE RECORDS SUMMARY | 2022-07-27 08:47 | XMS_ITS | Encounter Summary ---
:1960 Author Organization [facility] Address [address] [place] [address] Care Team Providers Name Role Phone Subha Ramirez PA-C Primary Care Provider [phone] Reason for Visit Reason Comments Knee right f/u, redness and general bod y flush, no change in knee sx yet Encounter Details Date Type Department Care Team Description 05/21/2009 Office Visit [facility] Reaction Orthopedic MD Dipti (Primary Dx) [facility]ICS [address] [place] [phone] Social History Tobacco Use Types Packs/Day Years Used Date Smoking Tobacco: Former Cigarettes 1 20 Comments: 07/2008 Alcohol Use Standard Drinks/Week Comments Yes 0 (1 standard drink = 0.6 oz pure alcoho l) 2 drinks 2x week Sex Assigned at Date Recorded Not on file documented as of this encounter Last Filed Vital Signs Vital Sign Reading Time Taken Comments Blood Pressure 124/82 05/21/2009 2:40 PM CDT Pulse - - Temperature 36.7 ??C (98 ??F) 05/21/2009 2:40 PM CDT Respiratory Rate - - Oxygen Saturation - - Inhaled Oxygen Concentration - - Weight - - Height - - Body Mass Index - - documented in this encounter Progress Notes Meme Roth - 05/21/2009 2:54 PM CDT SUBJECTIVE: Annalisa Jacob is a 48 year old female who is seen in follow-up for right knee pain. Patient is concerned because she is experiencing a red flush/ warmth on her entire body after her steroid injection. Denies SOB, palpitations. BP 124/82 Temp 98 ??F (36.7 ??C) LMP Hysterectomy EXAM: GENERAL APPEARANCE: healthy, alert and no distress, mild flush of her skin GAIT: normal SKIN: no suspicious lesions or rashes NEURO: Normal strength and tone, mentation intact and speech normal PSYCH: mentation appears normal and affect normal/bright ASSESSMENT/PLAN: Steroid flush. Reassurance given. Wouldn't expect worsening problems at this point. Will wait to seeif the injection helps with her knee pain from DJD. F/u prn. Call or return if symptoms worsen or change. documented in this encounter Nursing Notes 05/21/2009 2:45 PM CDT >> MARIANA WILKINSON Wed May 21, 2009 2:43 PM Patient presents with: Knee right - f/u, redness and general body flush, no change in knee sx yet Initial BP 124/82 Temp 98 ??F (36.7 ??C) LMP Hysterectomy Estimated Body mass index is 42.54 kg/(m^2) as calculated from: Height of 5' 11 (1.803 m) as of 05/20/09 Weight of 305 lb (138.347 kg) as of 05/20/09. BP completed using cuff size: large Mariana Wilkinson, ATC documented in this encounter Plan of Treatment Not on filedocumented as of this encounter Visit Diagnoses Diagnosis Flushing reaction - Primary Flushing documented in this encounter Care Teams Computer Software Engineer Relationship Specialty Start Date End Date Subha Ramirez PA-C PCP - General 02/23/02 03/11/[address] [facility] [address] [place] [address] documented as of this encounter
--- OUTSIDE RECORDS SUMMARY | 2022-07-27 08:47 | XMS_ITS | Encounter Summary ---
:1960 Author Organization [facility] Address [address] [place] [address] Care Team Providers Name Role Phone Subha Ramirez PA-C Primary Care Provider Reason for Visit Reason Comments Knee right f/u 2nd Synvisc shot, Encounter Details Date Type Department Care Team Description 09/24/2009 Office Visit [facility] Primary Localized Orthopedic MD Dipti Osteoarthrosis, Lower [facility] Leg ( Primary Dx) Med ORTHOPEDICS [address] [place] [address] [address] [place] [phone] Social History Tobacco Use Types Packs/Day Years Used Date Smoking Tobacco: Former Cigarettes 1 20 Comments: 07/2008 Alcohol Use Standard Drinks/Week Comments Yes 0 (1 standard drink = 0.6 oz pure alcoho l) very little Sex Assigned at Date Recorded Not on file documented as of this encounter Last Filed Vital Signs Vital Sign Reading Time Taken Comments Blood Pressure 118/72 09/24/2009 3:21 PM MOLDING ENGINEER Pulse - - Temperature - - Respiratory Rate - - Oxygen Saturation - - Inhaled Oxygen Concentration - - Weight - - Height - - Body Mass Index - - documented in this encounter Progress Notes Meme Roth - 09/24/2009 3:27 PM CST SUBJECTIVE: Annalisa Jacob is a 48 year old female who is seen in follow-up for right knee DJD. Here for her second Synvisc injection. Good relief with her first shot. No longer using her cane. BP 118/72 EXAM: GENERAL APPEARANCE: healthy, alert and no [...] well without complications. ASSESSMENT/PLAN: Right knee DJD. Second Synvisc injection done in the office today. F/u one week for third injection. ING ENGINEER documented in this encounter Nursing Notes 09/24/2009 3:15 PM CST >> JARED CARRENO Wed Sep 24, 2009 3:21 PM Patient presents with: Knee right - f/u 2nd Synvisc shot, Initial BP 118/72 Estimated Body mass index is 43.52 kg/(m^2) as calculated from the following: Height as of 09/01/09: 5' 11(1.803 m). Weight as of 09/01/09: 312 lb(141.522 kg).. BP completed using cuff size: daniela Carreno ATC documented in this encounter Plan of Treatment Not on filedocumented as of this encounter Procedures Procedure Name Priority Date/Time Associated Diagnosis Comme nts HC DRAIN/INJ MAJOR Routine 09/24/2009 3:37 PM MOLDING ENGINEER Primary Loca lized JOINT/BURSA W/O US Osteoarthrosis, Lower Leg documented in this encounter Visit Diagnoses Diagnosis Primary localized osteoarthrosis, lower leg - Primary documented in this encounter Care Teams Conduit Helper Relationship Specialty Start Date End Date Subha Ramirez PA-C PCP - General 02/23/02 03/11/10 [facility] [address] [place] [address] documented as of this encounter
--- OUTSIDE RECORDS SUMMARY | 2022-07-27 08:47 | XMS_ITS | Encounter Summary ---
:1960 Author Organization [facility] Address [address] [place] [address] Care Team Providers Name Role Phone Subha Ramirez PA-C Primary Care Provider [phone] Reason for Visit Reason Comments Knee right f/u 3rd Synvisc injection Encounter Details Date Type Department Care Team Description 10/01/2009 Office Visit [facility] (Deg enerative Orthopedic MD Dipti Joint Disease) of Knee Care-[facility] (Prim kali Dx) Med ORTHOPEDICS [address] [place] [address] [phone] Social History Tobacco Use Types Packs/Day Years Used Date Smoking Tobacco: Former Cigarettes 1 20 Comments: 07/2008 Alcohol Use Standard Drinks/Week Comments Yes 0 (1 standard drink = 0.6 oz pure alcoho l) very little Sex Assigned at Date Recorded Not on file documented as of this encounter Last Filed Vital Signs Vital Sign Reading Time Taken Comments Blood Pressure 114/72 10/01/2009 3:15 PM DUST HANDLER Pulse - - Temperature - - Respiratory Rate - - Oxygen Saturation - - Inhaled Oxygen Concentration - - Weight - - Height - - Body Mass Index - - documented in this encounter Progress Notes Meme Roth - 10/01/2009 3:29 PM CST SUBJECTIVE: Annalisa Jacob is a 48 year old female who is seen in follow-up for right knee 3rd Synvisc injection. Patient notes no problems after injection last week. Patient also notes decreased pain in her right knee. BP 114/72 EXAM: GENERAL APPEARANCE: healthy, alert and no distress GAIT: NORMAL SKIN: no suspicious lesions or rashes NEURO: Normal strength and tone, mentation intact and speech normal PSYCH: mentation appears normal and affect normal/bright After risks, benefits and complications of Synvisc injection were discussed with the patient she elected to proceed. Using sterile technique, the area was first prepped with betadyne and an alcohol swab. A 22 gauge needle was used to inject Synvisc into the knee on the right. Annalisa tolerated the procedure well without complications. ASSESSMENT/PLAN: Right knee DJD. 3rd Synvisc injection done today. F/u prn. X-RAY INTERPRETATION: No Knee X-Rays indicated HANDLER documented in this encounter Nursing Notes 10/01/2009 3:15 PM CST >> MARIANA CARRENO Wed Oct 01, 2009 3:29 PM Patient presents with: Knee right - f/u 3rd Synvisc injection Initial BP 114/72 Estimated Body mass index is 43.52 kg/(m^2) as calculated from the following: Height as of 09/01/09: 5' 11(1.803 m). Weight as of 09/01/09: 312 lb(141.522 kg).. BP completed using cuff size: large Mariana Carreno ATC documented in this encounter Plan of Treatment Not on filedocumented as of this encounter Procedures Procedure Name Priority Date/Time Associated Diagnosis Comme nts HC DRAIN/INJ MAJOR Routine 10/12/2009 3:30 PM DUST HANDLER DJD (Degener ative Joint JOINT/BURSA W/O US Disease) of Knee documented in this encounter Visit Diagnoses Diagnosis DJD (degenerative joint disease) of knee - Primary Osteoarthrosis, unspecified whether gene ralized or localized, lower leg documented in this encounter Care Teams Plastics Process Hand Relationship Specialty Start Date End Date Subha Ramirez PA-C PCP - General 02/23/02 03/11/10 [facility] [address] [place] [address] documented as of this encounter
--- OUTSIDE RECORDS SUMMARY | 2022-07-27 08:47 | XMS_ITS | Encounter Summary ---
:1960 Author Organization [facility] Address [address] [facility] [place] [address] Care Team Providers Name Role Phone Subha Ramirez PA-C Primary Care Provider [phone] Reason for Referral Referral not Required - Closed Specialty Diagnoses / Procedures Referred By Contact Refer red To Contact Diagnoses Pain in joint, lower leg Pam Walters MD [place] [facility] [address] [place] [address] [phone] [place] [phone] Phone: [phone] Fax: Referral ID Status Reason Start Date Expiration Date Visits Requ ested Visits Authorized [id number] Closed 06/18/2009 08/14/2011 1 1 ENT WINDING MACHINE TENDER Encounter Details Date Type Department Care Team Description 06/18/2009 Orders Only [facility] Pam Walters MD Pain in Joint, Lower Clinic Critical access hospital Leg (Primary Dx) [address] [place], [place] [address] [facility] [phone] [place] [address] Social History Tobacco Use Types Packs/Day Years Used Date Smoking Tobacco: Former Cigarettes 1 20 Comments: 07/2008 Alcohol Use Standard Drinks/Week Comments Yes 0 (1 standard drink = 0.6 oz pure alcoho l) 2 drinks 2x week Sex Assigned at Date Recorded Not on file documented as of this encounter Plan of Treatment Pending Results Name Type Priority Associated Diagnoses Date/Ti me CONSULT ORTHO STEREOPTIC PROJECTION TOPOGRAPHER Referral Routine Pain in Joint, Lower Leg 06/20/2009 documented as of this encounter Procedures Procedure Name Priority Date/Time Associated Diagnosis Comme nts ORTHOPEDIC STEREOPTIC PROJECTION TOPOGRAPHER REFERRAL Routine 06/20/2009 Pain in Pallavi nt, Lower Leg documented in this encounter Visit Diagnoses Diagnosis Pain in joint, lower leg - Primary documented in this encounter Care Teams Tear Down Man Relationship Specialty Start Date End Date Subha Ramirez PA-C PCP - General 02/23/02 03/11/10 [facility] [address] [place] [address] documented as of this encounter
--- OUTSIDE RECORDS SUMMARY | 2022-07-27 08:47 | XMS_ITS | Encounter Summary ---
:1960 Author Organization [facility] Address [address] [place] [address] Care Team Providers Name Role Phone Subha Ramirez PA-C Primary Care Provider Reason for Referral Referral not Required - Closed Specialty Diagnoses / Procedures Referred By Contact Refer red To Contact Diagnoses Knee pain Pam Walters MD [facility] [place] [address] [place] [address] [place] [address] Phone: [phone] Fax: [phone] Referral ID Status Reason Start Date Expiration Date Visits Requ ested Visits Authorized [id number] Closed 09/15/2009 08/14/2011 1 1 RICAL CONTROL PROGRAMMER Reason for Visit Reason Onset Date Comments Patient Request 09/15/2009 Knee Pain Encounter Details Date Type Department Care Team Description 09/15/2009 Telephone [facility] Pam Walters MD Patient Request (Knee Clinic [facility] ) [address] [place], [place] [address] [facility] [address] [place] [address] (Wo rk) Social History Tobacco Use Types Packs/Day Years Used Date Smoking Tobacco: Former Cigarettes 1 20 Comments: 07/2008 Alcohol Use Standard Drinks/Week Comments Yes 0 (1 standard drink = 0.6 oz pure alcoho l) very little Sex Assigned at Date Recorded Not on file documented as of this encounter Miscellaneous Notes Telephone Encounter - Pam Walters - 09/15/2009 12:42 PM CST Pt wants to go to [facility] for ortho cares and has specific provider in mind, can you help with this? Pam Walters MD RICAL CONTROL PROGRAMMER Telephone Encounter - Dotty Robertson - 09/15/2009 11:46 AM CST I am not sure what you want me to do. If the pt is going to Dr. Allen a referral to the ortho [facility] is needed. RICAL CONTROL PROGRAMMER Telephone Encounter - Pam Walters - 09/15/2009 9:46 AM CST I called pt, pt reported having panic attacks about surgery , pt thinks 2 months before having preop-giving her anxiety, pt cancelled surgery due to above, pt feels needs to do surgery due to knee pain. Offered meds for anxiety or panic attacks-pt not ready to use anything right now, if this changes, will let me know. Pt would like trial of synvisc prior to doing surgery-pt might see dr. Allen for this. Advised pt to talk to surgeon. Pt would like to consider [facility] surgeon, pt advised to call insurance and make sure insurance approved Pam Walters MD Please help with referral and let pt know if surgeon she intends to see is covered with her insurance RICAL CONTROL PROGRAMMER Telephone Encounter - Pam Walters - 09/15/2009 9:39 AM CST I called pt, LMTCB Pam Walters MD RICAL CONTROL PROGRAMMER Telephone Encounter - Nick Calderón - 09/15/2009 9:05 AM CST Patient cancelled knee surgery last week. Patient panicking. Patient is unsure that surgery is the right answer. Patient is wondering if she is knows [facility] or another surgeon. Patient ishaving anxiety about this. Patient would like to know if having surgery is the right option. Patientnot confident that this is the right approach. Patient would like to know if you can call her. Nick Calderón RN RICAL CONTROL PROGRAMMER Telephone Encounter - Nick Calderón - 09/15/2009 8:58 AM NUMERICAL CONTROL PROGRAMMER Staff Message copied by NICK CALDERÓN on TueSep 15, 2009 8:58 AM ------ Message from: AARON CRENSHAW Created: TueSep 15, 2009 8:35 AM Regarding: rw/knee Contact: Patient is requesting to speak with Dr. Walters or her nurse regarding her knee. Please call patient at [phone]. RICAL CONTROL PROGRAMMER documented in this encounter Plan of Treatment Pending Results Name Type Priority Associated Diagnoses Date/Ti me CONSULT ORTHO ENGINE BUILDER Referral Routine Knee Pain 0 09/16/2009 documented as of this encounter Procedures Procedure Name Priority Date/Time Associated Diagnosis Comme nts ORTHOPEDIC ENGINE BUILDER REFERRAL Routine 09/16/2009 Knee Pain documented in this encounter Visit Diagnoses Diagnosis Knee pain - Primary Pain in joint, lower leg documented in this encounter Care Teams Artist Suspect Relationship Specialty Start Date End Date Subha Ramirez PA-C PCP - General 02/23/02 03/11/10 [facility] [address] [place] [address] documented as of this encounter
--- OUTSIDE RECORDS SUMMARY | 2022-07-27 08:47 | XMS_ITS | Encounter Summary ---
:1960 Author Organization [facility] Address [address] [place] [address] Care Team Providers Name Role Phone Subha Ramirez PA-C Primary Care Provider [phone] Encounter Details Date Type Department Care Team Description 07/03/2009 Consultation [facility] Morelia Francisco, PT Hospital Results [facility] [address] [place], [place] [address] (Wo rk) Social History Tobacco Use Types Packs/Day Years Used Date Smoking Tobacco: Former Cigarettes 1 20 Comments: 07/2008 Alcohol Use Standard Drinks/Week Comments Yes 0 (1 standard drink = 0.6 oz pure alcoho l) 2 drinks 2x week Sex Assigned at Date Recorded Not on file documented as of this encounter Procedure Notes Morelia Francisco, PT - 07/08/2009 9:47 AM CSTAssociated Order(s): CONSULT EMI (PT & CHIRO) FINAL PHYSICAL THERAPY DISCHARGE NOTE Patient was seen for a total of 5 visits including her initial evaluation on 07/06/2009. Patient was seen for a total of 5 visits for lower extremity strengthening, gait and balance training. Patient Self-Report: At final visit, patient reported that she felt like her right knee was stronger and reported her pain 0/10 sitting and 4/10 standing. Patient states that her standing pain varies depending on activity. Patient reported that the pool felt good and plans on continuing with an exercise program after she obtains a punch card. Patient is having further follow up with an orthopedic doctor. Impairment Status: ROM and strength not retested prior to discharge as patient was seen for only 5 visits. Patient continues to demonstrate bilateral knee weakness as observed with exercises and functional activities. Functional Status: Patient continues to ambulate independently without an assistive device. Patientexhibits slight decreased stance time on the right. Patient is able to normalize this in the aquaticenvironment. Patient reports slow improvement with stair climbing and states that she is able to go up and down stairs reciprocally sometimes but it depends on the pain. Interventions This Session: Please see pool flowsheet. Plan of Care Goals: 1. Patient will be independent with an aquatic exercise program as part of symptom management program. Goal Progress: Goal met with use of handouts. 2. Patient will be able to ambulate without assistive device up to one-half mile to be able to go grocery shopping without needing to stop and rest or increasing her pain significantly. Goal Progress:Goal status unknown as patient is unsure of how far she walked. Patient is able to perform grocery shopping with the use of a cart. Patient reports that her pain is better at beginning of the day. 3. Patient will be able to negotiate stairs ascending in a step-to gait pattern for improved mobility at home, as well as the parking garage when the elevator is not working. Goal Progress: Patient isable to perform stairs in a step-to pattern. Patient reports that she is sometimes able to this in areciprocal pattern for going up and down stairs but that it depends on her knee pain. Evaluation: Patient presented to physical therapy with diagnosis of bilateral knee DJD. Patient hasdecreased pain when in the pool environment and is also making slow progress towards improving strength. Patient will benefit from continuing an aquatic exercise program to maximize strength and ROM for functional mobility and will benefit from performing this in a partially unweighted environment. Reason for Discharge: Patient no longer requires skilled PT intervention to continue. Thank you for referring Winston Jacob to Physical Therapy. Please call with any questions at [phone]. Electronically signed on 07/09/2009 15:47 by MORELIA FRANCISCO PT MT: leilani Name: WINSTON JACOB MRN: [id number] Account: [id number] : 1960 Visit Date: 07/03/2009 Sex: F Age: 48 Document: [id number] UMER INSIGHTS SPECIALIST documented in this encounter Plan of Treatment Not on filedocumented as of this encounter Procedures Procedure Name Priority Date/Time Associated Diagnosis Comme nts ZZ EMI PT AND HAND 07/07/2009 4:35 PM Res ults for this REFERRAL CONSUMER INSIGHTS SPECIALIST procedure are i n the results section. documented in this encounter Results CONSULT EMI (PT & CHIRO) (07/07/2009 4:35 PM CONSUMER INSIGHTS SPECIALIST) Transcriptions Morelia Francisco PT - 07/08/2009 9:47 AM CONSUMER INSIGHTS SPECIALIST FINAL PHYSICAL THERAPY DISCHARGE NOTE Patient was seen for a total of 5 visit s including her initial evaluation on 07/06/2009. Patient was seen for a total of 5 visits for lower extremity strengthening, gait and balance training. Patient Self-Report: At final visit, marta nani reported that she felt like her right knee was stronger and reported her pain 0/10 sitting and 4/10 standing. Patient states that her standing pain varies depending on activity. Patient reported that the pool felt good and plans on continuing with an exercise program after she obtains a punch card. Patient is having further follow up with an orthopedic doctor. Impairment Status: ROM and strength not retested prior to discharge as patient was seen for only 5 visits. Patient continues to demonstrate bilateral knee weakness as observed with exercises and functional activities. Functional Status: Patient continues to ambulate independently without an assistive device. Patient exhibits slight decreased stance time on the right. Patient is able to normalize this in the aquatic environment. Patient reports slow improvement with st air climbing and states that she is able to go up and down stairs reciprocally sometimes but it depends on the pain. Interventions This Session: Please see pool flowsheet. Plan of Care Goals: 1. Patient will be independent with an aquatic exercise program as part of symptom management program. Goal Progress: Goal met with use of handouts. 2. Patient will be able to ambulate wit hout assistive device up to one-half mile to be able to go grocery shopping without needing to stop and rest or increasing her pain significantly. Goal Progress: Goal status unknown as patient is unsure of how far she walked. Patient is able to perform grocery shopping with the use of a cart. Patient reports that her pain is better at beginning of the day. 3. Patient will be able to negotiate st airs ascending in a step-to gait pattern for improved mobility at home, as well as the parking garage when the elevator is not working. Goal Progress: Patient is able to perform stairs in a step-to pattern. Patient rep orts that she is sometimes able to this in a reciprocal pattern for going up and down stairs but that it depends on her knee pain. Evaluation: Patient presented to physic al therapy with diagnosis of bilateral knee DJD. Patient has decreased pain when in the pool environment and is also making slow progress towards improving strength. Patient will benefit from continuing an aquatic exercise program to maximize strength and ROM for functional mobility and will benefit from performing this in a partially unweighted environment. Reason for Discharge: Patient no longer requires skilled PT intervention to continue. Thank you for referring Winston Jacob to Physical Therapy. Please call with any questions at [phone]. Electronically signed on 07/09/2009 15: 47 by MORELIA FRANCISCO, PT MT: leilani Name: WINSTON JACOB MRN: [id number] Account: [id number] : 1960 Visit Date: 07/03/2009 Sex: F Age: 48 Document: [id number] Morelia Francisco PT REFERRAL documented in this encounter Visit Diagnoses Not on filedocumented in this encounter Care Teams Automotive Design Layout Drafter Relationship Specialty Start Date End Date Subha Ramirez PA-C PCP - General 02/23/02 03/11/10 [facility] [address] [place] [address] documented as of this encounter
--- OUTSIDE RECORDS SUMMARY | 2022-07-27 08:47 | XMS_ITS | Encounter Summary ---
:1960 Author Organization [facility] Address [address] [place] [address] Care Team Providers Name Role Phone Subha Ramirez PA-C Primary Care Provider [phone] Encounter Details Date Type Department Care Team Description 10/17/2009 Telephone [facility] Jj Walters MD [address] [place] [phone] [place] [address] [phone] (Wo rk) Social History Tobacco Use Types Packs/Day Years Used Date Smoking Tobacco: Former Cigarettes 1 20 Comments: 07/2008 Alcohol Use Standard Drinks/Week Comments Yes 0 (1 standard drink = 0.6 oz pure alcoho l) very little Sex Assigned at Date Recorded Not on file documented as of this encounter Miscellaneous Notes Telephone Encounter - Pam Walters - 10/17/2009 2:38 PM CST Help with this-if ok to place referral for insurance [employer] Pam Walters MD TEACHER Telephone Encounter - Dotty Robertson - 10/17/2009 2:20 PM CST Annalisa would like a referral for her knee replacement surgery at [facility]. Dr. Wayne Haywood with [facility]. Please call Annalisa with your reply. [phone] TEACHER documented in this encounter Plan of Treatment Not on filedocumented as of this encounter Visit Diagnoses Not on filedocumented in this encounter Care Teams Financial Data Analyst Relationship Specialty Start Date End Date Subha Ramirez PA-C PCP - General 02/23/02 03/11/10 [facility] [address] [facility] [place] [address] documented as of this encounter
--- OUTSIDE RECORDS SUMMARY | 2022-07-27 08:47 | XMS_ITS | Encounter Summary ---
:1960 Author Organization [facility] Address [address] [place] [address] Care Team Providers Name Role Phone Subha Ramirez PA-C Primary Care Provider [phone] Reason for Visit Reason Comments Radiology Visit Encounter Details Date Type Department Care Team Description 06/12/2009 [facility] Pos tmenopausal Status [place] (Primary Dx) [address] [place] [address] Social History Tobacco Use Types [...] Procedure Name Priority Date/Time Associated Diagnosis Comme [facility] DEXA BONE DENSITY, Routine 06/12/2009 Postmenopausal Stat us Results for this >=1 SITE, AXIAL procedure ar e in the [facility] results section . documented in this encounter Results DEXA,BONE DENSITY,AXIAL [place] (06/12/2009) Anatomical Region Laterality Modality Bone Mineral Density Impressions 06/12/2009 BONE DENSITOMETRY [facility] June 12, 2009 PATIENT: ??Annalisa Jacob CHART: [id number] : ??1960 AGE: ??48 year old SEX: ??female REFERRING PHYSICIAN: ??Pam Walters MD, ??M D PROCEDURE: ??Bone density scanning was p erformed using DEXA technology performed on a [email or web address] Scanner. ??Reporting is completed in the form of a T-score. ??Th e T-score represents the standard deviation from peak bone mass b ased on a young healthy adult. Metrology Specialist performing scan: ??Jada andrade REFERENCE T-SCORES: ? Normal ? Greater than -1.0 ? Osteopenia ?-1.0 to -2.5 ? Osteoporosis ?? Less than -2.5 ? INDICATIONS: Surgical menopause age 38 CURRENT TREATMENT: ??Calcium with Vitami n D FINDINGS: ?Lumbar Spine L1-L4: ?? T-score 2.0 ?Left Femoral Neck: ??T -score 0.6 ?Right Femoral Neck: ?? T-score 1.0 ? Comparison is performed to previous DEXA performed on a [email or web address] Scanner on 04/12/2006 and on a [place] on 12/15/2000. Electronically filed by Jada Welch 06/12/2009 ??1:54 PM Comparisons from different scanners that have not been cross calibrated, are not necessarily valid. S uch a comparison has been performed here; one should interpret wit h caution. When compared with a scan dated 2000 and ??allowing for standardization calculations, there is s uggestion of a possible trend towards worsening of the lumbar sp ine, and a possible trend towards worsening of the total hip. Comparisons are not necessarily valid wh en precision within the machine has not been determined. Such a comparison has been performed here; one should interpret wit h caution. In the interim, allowing for standardiza tion calculations, there is suggestion of no significant change o f the lumbar spine, and a possible trend towards worsening of the total hip on the left (not noted on the right). IMPRESSION: Normal bone mineral density study Degenerative changes of the spine Recommendations include ensuring adequat e Calcium (1500 mg/d) and Vitamin D (800-1000 IU/d). Follow up can be considered within five years. For patients eligible for Medicare, routine testing i s allowed once every two years. The testing frequency can be incr eased to one year for patients who have rapidly progressing di sease, those who are receiving or discontinuing medical thera py to restore bone mass, or have additional risk factors. Jada Gifford M.D. Electronically signed Narrative This result has an attachment that is no t available. Pam Walters MD SPECIAL IMAGING STUDIES documented in this encounter Visit Diagnoses Diagnosis Postmenopausal status - Primary Asymptomatic postmenopausal status (age- related) (natural) documented in this encounter Care Teams Flitch Hanger Relationship Specialty Start Date End Date Subha Ramirez PA-C PCP - General 02/23/02 03/11/10 [facility] [address] [place] [phone] documented as of this encounter
--- OUTSIDE RECORDS SUMMARY | 2022-07-27 08:48 | XMS_ITS | Encounter Summary ---
:1960 Author Organization [place] Address [address] [place] [address] Care Team Providers Name Role Phone Subha Ramirez PA-C Primary Care Provider [phone] Encounter Details Date Type Department Care Team Description 01/16/2009 Results Only [facility] Isai Bunn, DPMarilu [address] [place] [id number] [facility] [address] [place], [place] [address] (Wo rk) Social History Tobacco Use Types [...] Procedure Name Priority Date/Time Associated Diagnosis Comme [facility] RT MRI JOINT Routine 01/16/2009 1:06 PM Resul ts for this LEG CDT procedure are i n the results section. documented in this encounter Results RT MRI JOINT LEG (01/16/2009 1:06 PM CDT) Anatomical Region Laterality Modality Other Specimen (Source) Anatomical Collection Method Collection Time Re ceived Time Location / / Volume Laterality 01/16/2009 1:06 PM CDT Impressions 01/16/2009 9:54 PM CDT MRI LOWER EXTREMITY JOINT WITHOUT CONTRA ST RIGHT ??Jan 16, 2009 1:06:00 PM HISTORY: Right dorsal midfoot edema. COMPARISON: X-rays from 12/20/2008. TECHNIQUE: Routine multiplanar, multiseq uence imaging was performed. FINDINGS: Osseous structures: Bone marrow signal i s normal throughout. No evidence of fracture or stress fracture. There are mild talonavicular degenerative changes. Additional findings: A large amount of s ubcutaneous edema on the dorsal aspect of the foot may be related to a contusion or cellulitis. No tendon abnormality is identified. Guille ntar fasciitis is unremarkable. No sinus tarsi abnormaliti es. Tarsal tunnel is unremarkable. No other abnormalities. IMPRESSION: ?? 1. No evidence of fracture or stress fra cture. 2. Mild talonavicular degenerative valderrama es. 3. Prominent subcutaneous edema involvin g the dorsolateral aspect of the foot and extending toward the ankle consistent with either a contusion or cellulitis. Isai Bunn DPM SPECIAL IMAGING STUDIES documented in this encounter Visit Diagnoses Not on filedocumented in this encounter Care Teams English Horn Player Relationship Specialty Start Date End Date Subha Ramirez PA-C PCP - General 02/23/02 03/11/10 [facility] [address] [place] [address] documented as of this encounter
--- OUTSIDE RECORDS SUMMARY | 2022-07-27 08:48 | XMS_ITS | Encounter Summary ---
:1960 Author Organization [place] Address [address] [place] [address] Care Team Providers Name Role Phone Subha Ramirez PA-C Primary Care Provider [phone] Encounter Details Date Type Department Care Team Description 04/09/2008 Therapy Visit [facility] Daniel Jackson, Achilles Tendinitis [id number] (Primary Dx) [place] [address] [facility] [phone] [facility] [address] [place] [id number] Social History Tobacco Use Types Packs/Day Years Used Date Smoking Tobacco: Every Day Cigarettes 1 20 Comments: 1/2 ppd Alcohol Use Standard Drinks/Week Comments Yes 0 (1 standard drink = 0.6 oz pure alcoho l) 2 drinks 2x week Sex Assigned at Date Recorded Not on file documented as of this encounter Progress Notes Daniel Jackson - 04/09/2008 2:55 PM CDT Please refer to the daily flowsheet for treatment today and total treatment time. Does this patient have Medicare or Medicaid as primary or secondary insurance? NO documented in this encounter Plan of Treatment Not on filedocumented as of this encounter Procedures Procedure Name Priority Date/Time Associated Diagnosis Comme nts ZZC ELECTRIC CURRENT Routine 04/09/2008 2:55 PM CDT Achilles T endinitis THERAPY Z MANUAL THER Routine 04/09/2008 2:55 PM CDT Achilles Tendin itis TECH,1+REGIONS,EA 15 MIN ZZC THERAPEUTIC Routine 04/09/2008 2:55 PM CDT Achilles Tendin itis EXERCISES Z ULTRASOUND THERAPY Routine 04/09/2008 2:55 PM CDT Achilles Tendinitis documented in this encounter Visit Diagnoses Diagnosis Achilles tendinitis - Primary Achilles bursitis or tendinitis documented in this encounter Care Teams Wan Support Specialist Relationship Specialty Start Date End Date Subha Ramirez PA-C PCP - General 02/23/02 03/11/10 [facility] [address] [place] [address] documented as of this encounter
--- OUTSIDE RECORDS SUMMARY | 2022-07-27 08:48 | XMS_ITS | Encounter Summary ---
:1960 Author Organization [place] Address [address] [place] [address] Care Team Providers Name Role Phone Subha Ramirez PA-C Primary Care Provider [phone] Reason for Visit Reason Comments RECHECK lump in groin- can't feel it any more Encounter Details Date Type Department Care Team Description 09/24/2008 Office Visit [facility] Abhilash Zabala, Vulvar Cyst (Primary [place]) [address] [phone] [facility] [address] [place] [address] Social History Tobacco Use Types Packs/Day Years Used Date Smoking Tobacco: Former Cigarettes 1 20 Comments: 08/15/08 Alcohol Use Standard Drinks/Week Comments Yes 0 (1 standard drink = 0.6 oz pure alcoho l) 2 drinks 2x week Sex Assigned at Date Recorded Not on file documented as of this encounter Last Filed Vital Signs Vital Sign Reading Time Taken Comments Blood Pressure 122/68 09/24/2008 3:15 PM OPERATIONS AND MAINTENANCE SUPERVISOR Pulse - - Temperature - - Respiratory Rate - - Oxygen Saturation - - Inhaled Oxygen Concentration - - Weight 142.4 kg (314 lb) 09/24/2008 3:15 PM OPERATIONS AND MAINTENANCE SUPERVISOR Height - - Body Mass Index 42.59 09/02/2008 11:30 AM OPERATIONS AND MAINTENANCE SUPERVISOR documented in this encounter Progress Notes Abhilash Zabala - 09/25/2008 7:44 PM CST Annalisa Jacob is a 47 year old w female P1001 s/p ERIKA and subsequent BSO who I am asked to see By Dr Pam Walters who presents for evaluaton of a painful lump in her R inguinal and vulvar area that firstappeared approx 1 month ago. There was no known ppting event or past hx of a similar lesion. She denied any F/C, N/V or bowel or bladder dysfunciton. Recently it began to spont drain and at present shecannot find it any more. Past Medical History Diagnosis Date ??? Obesity, Unspecified ??? Tobacco Use Disorder ??? Absence of Menstruation surgical menopause ??? [...] removed-fibroids ??? Nonspecific procedure 08/15 s/p cholecystectomy Family History Problem Relation ??? Cancer Maternal Grandfather at 50's-60's YOA, stomach CA ??? Neurological Maternal Grandmother at 80's, had alzheimer's ??? C.A.D. Paternal Grandmother late 30's of CT ??? Cancer Paternal Grandfather 60's of lung CA ??? Family History Negative Mother ??? Respiratory Father sarcoidosis ??? Obesity Sister ??? Obesity Brother History Social History ??? Marital Status: Spouse Name: Matteo Number of Children: 1 ??? 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 Tobacco Use: Quit -- 1.0 packs/day for 20 years 08/15/08 ??? Alcohol Use: Yes 2 drinks 2x week ??? Drug Use: No ??? Sexually Active: Yes -- Male partner(s) Other Topics Concern ??? Caffeine Concern Yes 1 lg coffee, occas soda ??? Special Diet No dietary calcium daily, low F/V ??? Exercise Yes not regular ??? Seat Belt Yes ??? Self-exams Yes Social History Narrative ??? No narrative on file Allergies: Penicillins Current outpatient prescriptions Medication Sig ??? ORDER FOR DME CAM walker- Large VITALS: BP 122/68 Wt 314 lb (142.429 kg) LMP Hysterectomy ROS: C: NEGATIVE for fever, chills, change in weight E: NEGATIVE for vision changes or irritation E/M: NEGATIVE for ear, mouth and throat problems R: NEGATIVE for significant cough or SOB B: NEGATIVE for masses, tenderness or discharge CV: NEGATIVE for chest pain, palpitations or peripheral edema GI: NEGATIVE for nausea, abdominal pain, heartburn, or change in bowel habits female: s/p hyst : NEGATIVE for frequency, dysuria, or hematuria M: NEGATIVE for significant arthralgias or myalgia N: NEGATIVE for weakness, dizziness or paresthesias E: NEGATIVE for temperature intolerance, skin/hair changes H: NEGATIVE for bleeding problems P: NEGATIVE for changes in mood or affect EXAM: Constitutional: healthy, alert and no distress Neck: Neck supple. No adenopathy. Thyroid symmetric, normal size,, Carotids without bruits. Cardiovascular: negative, PMI normal. No lifts, heaves, or thrills. RRR. No murmurs, clicks gallops or rub Respiratory: negative, Percussion normal. Good diaphragmatic excursion. Lungs clear Gastrointestinal: Abdomen soft, non-tender. BS normal. No masses, organomegaly Genitourinary: Normal external genitalia without lesions and no lump is noted, Spec: nl rugae, no lesions, cx abasent, uterus absent, adenexa wnl, RV: confirms ASSESSMENT:/PLAN: 624.8P Vulvar Cyst (primary encounter diagnosis) Comment: suspect this may have been a bartholins gland cyst that spont drained and hence has resolved Plan: i disc the findings and the pathophys of bartholin gland cysts and abscess and disc the sx's with which she should call, O/W RTC prn Note to Dr Walters ATIONS AND MAINTENANCE SUPERVISOR documented in this encounter Nursing Notes 09/24/2008 3:15 PM CST >> SEFERINO Sauceda Sep 24, 2008 3:21 PM Annalisadaenna Jacob presents for above. Initial BP 122/68 Wt 314 lb (142.429 kg) LMP Hysterectomy Estimated Body mass index is 42.59 kg/(m^2) as calculated from: Height of 6' 0 (1.829 m) as of 09/02/08 Weight of 314 lb (142.429 kg) as of this encounter. BP completed using cuff size: daniela Ruiz LPN documented in this encounter Plan of Treatment Not on filedocumented as of this encounter Visit Diagnoses Diagnosis Vulvar cyst - Primary Other specified noninflammatory disorder of vulva and perineum documented in this encounter Care Teams Seafood Packer Relationship Specialty Start Date End Date Subha Ramirez PA-C PCP - General 02/23/02 03/11/10 [facility] [address] [place] [address] documented as of this encounter
--- OUTSIDE RECORDS SUMMARY | 2022-07-27 08:48 | XMS_ITS | Encounter Summary ---
:1960 Author Organization [place] Address [address] [place] [address] Care Team Providers Name Role Phone Subha Ramirez PA-C Primary Care Provider [phone] Reason for Visit Reason Comments Radiology Visit Encounter Details Date Type Department Care Team Description 12/18/2008 Orders Only [facility] Ot er Screening Mammogram [place] (Primary Dx) [address] [place] [address] Social History Tobacco Use Types [...] Procedure Name Priority Date/Time Associated Diagnosis Comme [facility] HC MAMMOGRAM, Routine 12/18/2008 4:37 PM Other Screening Resul ts for this SCREENING BILATERAL CDT Mammogram procedur e are in the results section. documented in this encounter Results MAMMOGRAM, SCREENING (12/18/2008 4:37 PM CDT) P athologist Signature MAMMOGRAM Anatomical Region Laterality Modality Other Impressions 12/18/2008 4:37 PM CDT Electronically filed by Danielle Mayers ??12/18/2008 ??4:37 PM RADIOLOGIST'S INTERPRETATION: Breast parenchyma: ??fatty/mild densitie s IMAGING IMPRESSION: (CATEGORY-1) NEGATIVE Comments: 12/18/08 Annalisa Jacob ??: ??1960 A BB barlow a left mole and both nipples. González Ruiz M.D./leobardo D/ Pam Walters MD SPECIAL IMAGING STUDIES documented in this encounter Visit Diagnoses Diagnosis Other screening mammogram - Primary documented in this encounter Care Teams Workers' Compensation Hearings Officer Relationship Specialty Start Date End Date Subha Ramirez PA-C PCP - General 02/23/02 03/11/10 [facility] [address] [place] [address] documented as of this encounter
--- OUTSIDE RECORDS SUMMARY | 2022-07-27 08:48 | XMS_ITS | Encounter Summary ---
:1960 Author Organization [place] Address [address] [place] [address] Care Team Providers Name Role Phone Subha Ramirez PA-C Primary Care Provider [phone] Reason for Visit Reason Comments Mass lump on innergroin area. sta rted to become painful, this weekend, and some bleeding Derm Problem dryness on bottom of right f oot Encounter Details Date Type Department Care Team Description 09/02/2008 Office Visit [facility] Pam Walters MD Lump in the Groin (Primary Dx); Clinic [facility] Other Screening Mammogram; [address] [facility] CLINIC Skin Disorder [address] [place] [address] [place] [address] Social History Tobacco Use Types [...] Sign Reading Time Taken Comments Blood Pressure 130/70 09/02/2008 11:30 AM MANAGER PRACTICE Pulse 75 09/02/2008 11:30 AM MANAGER PRACTICE Temperature 36.6 ??C (97.9 ??F) 09/02/2008 11:30 AM MANAGER PRACTICE Respiratory Rate - - Oxygen Saturation 97% 09/02/2008 11:30 AM MANAGER PRACTICE Inhaled Oxygen Concentration - - Weight 139.5 kg (307 lb 9.6 oz) 09/02/2008 11:30 AM MANAGER PRACTICE Height 182.9 cm (6') 09/02/2008 11:30 AM MANAGER PRACTICE Body Mass Index 41.72 09/02/2008 11:30 AM MANAGER PRACTICE documented in this encounter Progress Notes Pam Walters - 09/02/2008 12:03 PM CST SUBJECTIVE: This is a 47 year old female with 1)lump -on inner side of rt upper thigh/groin area, felt like smaller lymph node, seems to getting bigger, first found 2 months ago, some drainge -bloody-found on underwear but not seen any opening at lump site, not shaving external genatalia often, no pelvic pain, no bloating, s/p hysterecomy No vaginal discharge, no urinary issues 2)foot rash-rt foot botton rash for one week, some itching and feeling dry and crakling of skin, used creame-triamcinolone from derm given before-with some help No issues on left foot Pt reported able to walk ok Past Medical History Diagnosis Date ??? Obesity, [...] cholecystectomy Current outpatient prescriptions Medication Sig ??? ORDER FOR DME CAM walker- Large ??? PREMARIN 0.625 MG/GM VA CREA 1gm nightly for one week, then 1-2 times weekly as needed OBJECTIVE: Filed Vitals: 09/02/2008 11:30 AM BP: 130/70 Pulse: 75 Temp: 97.9 ??F (36.6 ??C) TempSrc: Oral Height: 6' (1.829 m) Weight: 307 lb 9.6 oz (139.526 kg) SpO2: 97% EXAM: Constitutional: healthy, alert and no distress Cardiovascular: negative, PMI normal. No lifts, heaves, or thrills. RRR. No murmurs, clicks gallops or rub Respiratory: negative, Percussion normal. Good diaphragmatic excursion. Lungs clear Gastrointestinal: Abdomen soft, non-tender. BS normal. No masses, organomegaly Genitourinary: Normal external genitalia without lesions-per speculum exam done, no masssess noted, slightly limited exam with her body habits, as far as i can tell, normal posthysterecomy exam, there is palpable lump on rt side of labia majora about 1.5 to 2 cm in size-without any fluctuation or groin lymph node enlargment Integument: very dry skin on rt foot with some crakling without any fungal rash- mild dermatitis appering rash on medial foot-very mild ASSESSMENT: This is a 47 year old female with 789.30AJ Lump in the Groin (primary encounter diagnosis) Comment: Plan: ddx considered and d/w pt-cyst vs gland vs lymph node vs other, options discussed-ob eval vs doing scan to eval this-as definitely there is not opening to this lump, pelvic exam done, slighlty limited with her body habitus, pt agrees to do ct-i think it is reasonable to further assess this with her concerns about bleeding and lump , pt declined rectal bleeding, pt had hysterecomy- V76.12 Other Screening Mammogram Comment: Plan: MAMMOGRAM, SCREENING 709.9E Skin Disorder Comment: Plan: pt to use moisterizers prn-otc amlactin /eucerin etc Pt will use topical steroids to rash on medial foot bid for 5-7 days Will consider podiatry eval if needed Pam Walters MD GER PRACTICE documented in this encounter Nursing Notes 09/02/2008 11:30 AM CST >> NICK GASTELUM Mon Sep 02, 2008 11:40 AM Annalisa Jacob presents for above Initial BP 130/70 Pulse 75 Temp (Src) 97.9 ??F (36.6 ??C) (Oral) Ht 6' (1.829 m) Wt 307 lb 9.6 oz (139.526 kg) SpO2 97% LMP Hysterectomy Body mass index is 41.72 kg/(m^2).. BP completed using cuff size: large Imani Elizabeth documented in this encounter Plan of Treatment Not on filedocumented as of this encounter Procedures Procedure Name Priority Date/Time Associated Diagnosis Comme nts HC CT PELVIS W/O Routine 09/03/2008 7:44 AM Lump in the groin Results for this CONTRAST MANAGER PRACTICE procedure are i n the results section. documented in this encounter Results CT SCAN PELVIS (09/03/2008 7:44 AM MANAGER PRACTICE) Anatomical Region Laterality Modality Other Specimen (Source) Anatomical Collection Method Collection Time Re ceived Time Location / / Volume Laterality 09/03/2008 7:44 AM MANAGER PRACTICE Impressions 09/03/2008 8:[address] PELVIS WITHOUT CONTRAST Sep 03, 2008 7:44:00 AM COMPARISON: None. History: ??Palpable lump on external gen mary right side. ??Question cyst. ??Patient noticed drainage/blood i n area. BB placed in area. ?? Technique: Volumetric helical acquisitio n of axial CT image data were acquired through the pelvis without intr avenous or oral contrast. The axial image data were used to reconstruc nely sagittal and coronal images. Findings: In the region of the BB there is no cyst or fluid collection. There is slight asymmetry in the skin fold compared to the opposite side. There are no abnormal lym ph nodes in the inguinal region or pelvis by size criteria. A few normal sized bilateral inguinal nodes are present. Hysterectomy changes. There are no lytic or sclerotic lesions. ??There are no sof t tissue masses or abnormal calcifications. Impression: There is no significant cyst in the region of the BB in the right external genitalia. The CT dem onstrates no extension into the subcutaneous tissues or pelvis of th e skin process. There is no abnormal mass or nodule demonstrated wit hin the subcutaneous tissues there corresponds to palpable abnormalit y. There is mild asymmetry of the skin fold in that region, that is po kendal characterized by CT. Pam Walters MD SPECIAL IMAGING STUDIES documented in this encounter Visit Diagnoses Diagnosis Lump in the groin - Primary Abdominal or pelvic swelling, mass or aj mp, unspecified site Other screening mammogram Skin disorder Unspecified disorder of skin and subcuta neous tissue documented in this encounter Care Teams Layout Designer Relationship Specialty Start Date End Date Subha Ramirez PA-C PCP - General 02/23/02 03/11/10 [facility] [address] [place] [address] documented as of this encounter
--- OUTSIDE RECORDS SUMMARY | 2022-07-27 08:48 | XMS_ITS | Encounter Summary ---
:1960 Author Organization [facility] Address [address] [place] [address] Care Team Providers Name Role Phone Subha Ramirez PA-C Primary Care Provider [phone] Reason for Visit Reason Comments Knee Pain rt knee pain getting worse Derm Problem check sore upper rt breast i s very painfull x 2 weks Encounter Details Date Type Department Care Team Description 05/14/2009 Office Visit [facility] Pam Walters MD Knee Pain (Primary Dx); Clinic [facility] Osteoporosis Screening; [address] [facility] Weight Loss; [place], [place] [address] Elevated Blood Pressure Reading without Diagnosis of Hypertension; [address] [place] [address] Skin Lesion [phone] Social History Tobacco Use Types Packs/Day Years Used Date Smoking Tobacco: Former Cigarettes 1 20 Comments: 07/2008 Alcohol Use Standard Drinks/Week Comments Yes 0 (1 standard drink = 0.6 oz pure alcoho l) 2 drinks 2x week Sex Assigned at Date Recorded Not on file documented as of this encounter Last Filed Vital Signs Vital Sign Reading Time Taken Comments Blood Pressure 150/92 05/14/2009 3:25 PM CDT Pulse 100 05/14/2009 3:25 PM CDT Temperature 36.8 ??C (98.3 ??F) 05/14/2009 3:25 PM CDT Respiratory Rate - - Oxygen Saturation 97% 05/14/2009 3:25 PM CDT Inhaled Oxygen Concentration - - Weight 143 kg (315 lb 3 oz) 05/14/2009 3:25 PM CDT Height 180.3 cm (5' 11) 05/14/2009 3:25 PM CDT Body Mass Index 43.96 05/14/2009 3:25 PM CDT documented in this encounter Patient Instructions Patient InstructionsWPam pichardo - 05/14/2009 3:36 PM CDT Please check bp outside at least 2-3 times week, come in 2 week for follow up on gwyn blood pressure documented in this encounter Progress Notes Pam Walters - 05/14/2009 3:36 PM CDT SUBJECTIVE: This is a 48 year old female with Rt knee pain-off and on pain since high school after hyperextension, hard to go in and out of car, used ibuprofen for this, no help. Hurts to walk and pain all the time, using brace and pt feels getting worse. Gives out at times, no swelling right now but feels hard to say, hard to walk ok and no locking No prior x-rays recently 2)spot on rt breast painful-for 2 weeks, no breast pain itself,no nipple drainge, no prior bites of any kind, no drainge, just local redness,mammo uptodate Past Medical History Diagnosis Date ??? Obesity, [...] cholecystectomy Current outpatient prescriptions Medication Sig ??? NO ACTIVE MEDICATIONS . OBJECTIVE: Filed Vitals: 05/14/2009 3:25 PM BP: 150/92 Pulse: 100 Temp: 98.3 ??F (36.8 ??C) TempSrc: Oral Height: 5' 11 (1.803 m) Weight: 315 lb 3 oz (142.968 kg) SpO2: 97% EXAM: Constitutional: healthy, alert and no distress Musculoskeletalextremities normal- no gross deformities noted, gait normal and normal muscle tone Rt knee-mild swelling, difficult to assess for meniscal or ligamental tear due to size of knee, but positive crepitus with flexion and extention Integument: there is a lesion on Rt anterior chest about 0.5cm with symmetrical redness above nipple, typical for boil or folliculitis, both breast non tender, no nipple drainge ASSESSMENT: This is a 48 year old female with 719.46D Knee Pain (primary encounter diagnosis) Comment: Plan: RT X-RAY KNEE 1 OR 2 VIEW, VICODIN 5-500 MG OR TABS, RT MRI JOINT LEG, RT MRI JOINT LEG Difficult exam due to knee size, x-rays positive for OA, with her concerns, will do mri to eval forinternal joint injury and further with resutls V82.81B Osteoporosis Screening Comment: Plan: DEXA,BONE DENSITY,AXIAL SKELETON 783.21Q Weight Loss Comment: Plan: intentional 796.2 Elevated Blood Pressure Reading without Diagnosis of Hypertension Comment: Plan: pt advised to check her bp outside, keep diary and come in with that 709.9G Skin Lesion Comment: Plan: likely small superficial boil/follliculitis , warm compressuss, follow up with continued issues or with worsening or with anything new Advised to watch for infection Pam Walters MD documented in this encounter Nursing Notes 05/14/2009 2:45 PM CDT >> RAE BUTTS Wed May 14, 2009 3:28 PM Patient presents with: Knee Pain - rt knee pain getting worse Derm Problem - check sore upper rt breast is very painfull x 2 weks Initial BP 150/92 Pulse 100 Temp (Src) 98.3 ??F (36.8 ??C) (Oral) Ht 5' 11 (1.803 m) Wt 315lb 3 oz (142.968 kg) SpO2 97% LMP Hysterectomy Body mass index is 43.96 kg/(m^2).. BP completed using cuff size: large J Hjorth STUDENT ADVISOR documented in this encounter Plan of Treatment Not on filedocumented as of this encounter Procedures Procedure Name Priority Date/Time Associated Diagnosis Comme nts [facility] RT MRI JOINT Routine 05/16/2009 8:27 AM Knee pain Resul ts for this LEG CDT procedure are i n the results section. [facility] RT X-RAY KNEE 1 Routine 05/14/2009 3:59 PM Knee pain Re sults for this OR 2 VIEW CDT procedure are i n the results section. documented in this encounter Results RT MRI JOINT LEG (05/16/2009 8:27 AM CDT) Anatomical Region Laterality Modality Other Specimen (Source) Anatomical Collection Method Collection Time Re ceived Time Location / / Volume Laterality 05/16/2009 8:27 AM CDT Impressions 05/16/2009 4:18 PM CDT MR RIGHT KNEE WITHOUT CONTRAST ??May 16, 2009 at 8:27 AM HISTORY: Medial, lateral and anterior kn ee pain with weightbearing. Remote history of hyperextension injury. TECHNIQUE: Sagittal proton density and T 2 weighted images, coronal T1 and coronal and axial T2 fat suppressed images were obtained. COMPARISON: None. FINDINGS: Menisci: Medial meniscus: There is marked degener ation, maceration and complex tearing throughout the mid body and post erior horn. The entire medial meniscus is also reduced in size and the mid body is extruded peripherally. No displaced meniscal frag ments or flaps. Lateral meniscus: There is truncation of the free edge in the mid body consistent with either degenerative fray ing or tearing off of the free edge. No displaced meniscal fragments or flaps and the remainder of the lateral meniscus is intact. Cruciate ligaments: Anterior cruciate ligament: No anterior cruciate ligament is identified. This is likely related to a chronic ACL tear. Posterior cruciate ligament: Normal. ?? Collateral supporting structures: Medial collateral ligament: Normal. Lateral supporting structures: The dista l biceps tendon, fibular collateral ligament, distal iliotibial t ract and popliteus muscle and tendon are normal. Osseous structures and cartilaginous uma faces: No acute-appearing bony abnormalities. Diffuse articular cartila ge thinning and irregularity throughout the weightbearing medial comp artment. This is associated with prominent marginal bony spurring. L ateral compartment weightbearing articular cartilages appea r intact but there is a moderate amount of degenerative bony spu rring. The patellofemoral joint shows degenerative change with maliha e patellar and trochlear articular cartilage thinning and irregul arity as well as marginal bony spurring. ?? Additional findings: There is a small to moderate-sized joint space effusion. There is an ossicle projecting posterior to the lateral tibial plateau measuring 1.5 x 1.0 x 1.0 cm seen best on image 18 of series 3 and image 20 of series 7. This is closely related to the popliteus muscle just proximal to the my otendinous junction. It may represent ossification within the muscle itself or possibly a loose body which has worked its way into the p opliteus recess of the joint space. Loose body may be less likely sin ce the ossicle does not appear to be surrounded by fluid. IMPRESSION: 1. Degeneration, maceration and complex tearing throughout the mid body and posterior horn of the medial me niscus. 2. Degenerative fraying or tearing off o f the free edge in the midbody of lateral meniscus. 3. No anterior cruciate ligament is iden tified, presumably related to chronic tear. 4. 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 5. 1.5 x 1 cm ossicle within or adjacent to the distal popliteus muscle of uncertain exact etiology. See above discussion. Pam Walters MD SPECIAL IMAGING STUDIES RT X-RAY KNEE 1 OR 2 VIEW (05/14/2009 3:59 PM CDT) Anatomical Region Laterality Modality Other Specimen (Source) Anatomical Collection Method Collection Time Re ceived Time Location / / Volume Laterality 05/14/2009 3:59 PM CDT Impressions 05/15/2009 7:44 AM CDT KNEE 1 TO 2 VIEWS RIGHT* May 14, 2009 3: 59:00 PM HISTORY: Pain. FINDINGS: Moderate degenerative change. Exam otherwise negative. Pam Walters MD GENERAL IMAGING documented in this encounter Visit Diagnoses Diagnosis Knee pain - Primary Pain in joint, lower leg Osteoporosis screening Special screening for osteoporosis Weight loss Loss of weight Elevated blood pressure reading without diagnosis of hypertension Skin lesion Unspecified disorder of skin and subcuta neous tissue documented in this encounter Care Teams Associate Engineer Relationship Specialty Start Date End Date Subha Ramirez PA-C PCP - General 02/23/02 03/11/[address] [facility] [address] [place] [phone] documented as of this encounter
--- OUTSIDE RECORDS SUMMARY | 2022-07-27 08:48 | XMS_ITS | Encounter Summary ---
:1960 Author Organization [facility] Address [address] [place] [address] Care Team Providers Name Role Phone Subha Ramirez PA-C Primary Care Provider [phone] Reason for Visit Reason Comments Musculoskeletal Problem right foot swelling. Sx sin e August. Encounter Details Date Type Department Care Team Description 01/09/2009 Office Visit [facility] Isai Mendes, DPM Edema; [place] [address] Arthralgia [address] [address] [place] [address] (Wo rk) Social History Tobacco Use Types [...] Sign Reading Time Taken Comments Blood Pressure 136/90 01/09/2009 4:02 PM CDT Pulse 64 01/09/2009 4:02 PM CDT Temperature - - Respiratory Rate - - Oxygen Saturation - - Inhaled Oxygen Concentration - - Weight - - Height - - Body Mass Index - - documented in this encounter Progress Notes Isai Bunn - 01/19/2009 8:06 PM CDT Subjective: Patient is seen today as a new pt consult from Dr. Walters with a several month hx of slowly resolving lt heel/ achilles tendon pain. Yet this has caused an increase in swelling on her rt foot. Yet specifically no pain. Denies history of trauma. Has tried changing shoewear, OTC inserts, and NSAIDS without much success. PMH, meds, all, PSH, PFH, and soc [...] show no sign of osseous pathology. 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 Recommended modifying activities, supportive shoes, ice, stretching, and not going barefoot. MRI of rt foot to attempt to understand edema, yet no pain clinically. Thank you for the consultation Copy sent documented in this encounter Nursing Notes 01/09/2009 4:00 PM CDT >> SAM LEÓN Jes January 09, 2009 4:05 PM Patient presents with: Musculoskeletal Problem - right foot swelling. Sx since August. Initial BP 136/90 Pulse 64 LMP Hysterectomy Estimated Body mass index is 43.54 kg/(m^2) as calculated from: Height of 6' 0 (1.829 m) as of 12/26/08 Weight of 321 lb (145.605 kg) as of 12/26/08 bp completed using cuff size: large right Sam León CMA documented in this encounter Plan of Treatment Not on filedocumented as of this encounter Visit Diagnoses Diagnosis Edema Arthralgia Pain in joint, site unspecified documented in this encounter Care Teams Rental Salesperson Relationship Specialty Start Date End Date Subha Ramirez PA-C PCP - General 02/23/02 03/11/10 [facility] [address] [place] [address] documented as of this encounter
--- OUTSIDE RECORDS SUMMARY | 2022-07-27 08:48 | XMS_ITS | Encounter Summary ---
:1960 Author Organization [facility] Address [address] [place] [address] Care Team Providers Name Role Phone Subha Ramirez PA-C Primary Care Provider Reason for Referral Specialty Diagnoses / Procedures Referred By Contact Refer red To Contact Meme Roth MD [facility] [address] [place] [address] Referral ID Status Reason Start Date Expiration Date Visits Requ ested Visits Authorized Encounter Details Date Type Department Care Team Description 05/20/2009 Orders Only [facility] Meme Roth NOT YET Orthopedic MD Dipti DEFINED (Primary Dx) [facility] [address], [address] [address] [place], [place] [phone] (Work) [phone] Social History Tobacco Use Types Packs/Day Years [...] Priority Date/Time Associated Diagnosis Comme nts ZZ CONSULT PT-OT Routine 05/20/2009 DIAGNOSIS NOT YET DEF INED (NON-I.A.M) documented in this encounter Results CONSULT PT-OT (NON-I.A.M) (05/20/2009) Narrative This result has an attachment that is no t available. Meme Roth MD REFERRAL documented in this encounter Visit Diagnoses Diagnosis DIAGNOSIS NOT YET DEFINED - Primary documented in this encounter Care Teams Warehouse Team Member Relationship Specialty Start Date End Date Subha Ramirez PA-C PCP - General 02/23/02 03/11/10 [facility] [address] [place] [address] documented as of this encounter
--- OUTSIDE RECORDS SUMMARY | 2022-07-27 08:48 | XMS_ITS | Encounter Summary ---
:1960 Author Organization [facility] Address [address] [place] [address]. [place] [address] Care Team Providers Name Role Phone Subha Ramirez PA-C Primary Care Provider [phone] Encounter Details Date Type Department Care Team Description 03/21/2008 Therapy Visit [facility] Daniel Jackson, Achilles Tendinitis [address] (Primary Dx) [place] [address] [facility] [phone] [facility] [address] [place] [id number] Social History Tobacco Use Types Packs/Day Years Used Date Smoking Tobacco: Every Day Cigarettes 1 20 Comments: 1/2 ppd Alcohol Use Standard Drinks/Week Comments Yes 0 (1 standard drink = 0.6 oz pure alcoho l) 2 drinks 2x week Sex Assigned at Date Recorded Not on file documented as of this encounter Progress Notes Daniel Jackson - 03/21/2008 3:05 PM CDT Please refer to the daily flowsheet for treatment today and total treatment time. Does this patient have Medicare or Medicaid as primary or secondary insurance? NO documented in this encounter Plan of Treatment Not on filedocumented as of this encounter Procedures Procedure Name Priority Date/Time Associated Diagnosis Comme nts ZZC MANUAL THER Routine 03/21/2008 3:05 PM CDT Achilles Tendin itis TECH,1+REGIONS,EA 15 MIN ZC THERAPEUTIC Routine 03/21/2008 3:05 PM CDT Achilles Tendin itis EXERCISES Z ULTRASOUND THERAPY Routine 03/21/2008 3:05 PM CDT Achilles Tendinitis Z ELECTRIC CURRENT Routine 03/21/2008 3:05 PM CDT Achilles T endinitis THERAPY documented in this encounter Visit Diagnoses Diagnosis Achilles tendinitis - Primary Achilles bursitis or tendinitis documented in this encounter Care Teams Assembler Installer General Relationship Specialty Start Date End Date Subha Ramirez PA-C PCP - General 02/23/02 03/11/10 [facility] [address] [place] [address] documented as of this encounter
--- OUTSIDE RECORDS SUMMARY | 2022-07-27 08:48 | XMS_ITS | Encounter Summary ---
:1960 Author Organization [facility] Address [address] [place] [address]. [place] [address] Care Team Providers Name Role Phone Subha Ramirez PA-C Primary Care Provider [phone] Encounter Details Date Type Department Care Team Description 03/12/2008 Therapy Visit [facility] Daniel Jackson, Achilles Tendinitis [id number] (Primary Dx) [place] [address] [facility] [phone] [facility] MEDIC[facility] E [address] [place] [phone] Social History Tobacco Use Types Packs/Day Years Used Date Smoking Tobacco: Every Day Cigarettes 1 20 Comments: 1/2 ppd Alcohol Use Standard Drinks/Week Comments Yes 0 (1 standard drink = 0.6 oz pure alcoho l) 2 drinks 2x week Sex Assigned at Date Recorded Not on file documented as of this encounter Progress Notes Daniel Jackson - 03/12/2008 2:58 PM CDT Please refer to the daily flowsheet for treatment today and total treatment time. Does this patient have Medicare or Medicaid as primary or secondary insurance? NO documented in this encounter Plan of Treatment Not on filedocumented as of this encounter Procedures Procedure Name Priority Date/Time Associated Diagnosis Comme nts ZZC MANUAL THER Routine 03/12/2008 3:19 PM CDT Achilles Tendin itis TECH,1+REGIONS,EA 15 MIN ZZC THERAPEUTIC Routine 03/12/2008 3:19 PM CDT Achilles Tendin itis EXERCISES ZZC ULTRASOUND THERAPY Routine 03/12/2008 3:19 PM CDT Achilles Tendinitis ZZC ELECTRIC CURRENT Routine 03/12/2008 3:19 PM CDT Achilles T endinitis THERAPY documented in this encounter Visit Diagnoses Diagnosis Achilles tendinitis - Primary Achilles bursitis or tendinitis documented in this encounter Care Teams Digitizer Operator Relationship Specialty Start Date End Date Subha Ramirez PA-C PCP - General 02/23/02 03/11/10 [facility] [address] [place] [address] documented as of this encounter
--- OUTSIDE RECORDS SUMMARY | 2022-07-27 08:48 | XMS_ITS | Encounter Summary ---
:1960 Author Organization [facility] Address [address] [place] [address] Care Team Providers Name Role Phone Subha Ramirez PA-C Primary Care Provider [phone] Reason for Referral - Closed Specialty Diagnoses / Procedures Referred By Contact Refer red To Contact Diagnoses Foot pain Pam Walters MD [address] [address] Referral ID Status Reason Start Date Expiration Date Visits Requ ested Visits Authorized [id number] Closed 01/02/2009 08/14/2011 1 1 Reason for Visit Reason Comments Derm Problem wart TX on bottom of right f oot, skin is dry x 2 week, also some swelling Encounter Details Date Type Department Care Team Description 12/26/2008 Office Visit [facility] Pam Walters MD Plantar Warts (Primary Dx); Clinic [facility] Elevated Blood Pressure Read ing without Diagnosis of Hypertension; [address] [facility] CLINIC Foot Pain [place], [place] [address] [facility] [address] [place] [address] Social History Tobacco Use Types [...] Sign Reading Time Taken Comments Blood Pressure 142/84 12/26/2008 4:23 PM CDT Pulse 97 12/26/2008 4:23 PM CDT Temperature 37.1 ??C (98.7 ??F) 12/26/2008 4:23 PM CDT Respiratory Rate - - Oxygen Saturation 98% 12/26/2008 4:23 PM CDT Inhaled Oxygen Concentration - - Weight 145.6 kg (321 lb) 12/26/2008 4:23 PM CDT Height 182.9 cm (6') 12/26/2008 4:23 PM CDT Body Mass Index 43.54 12/26/2008 4:23 PM CDT documented in this encounter Progress Notes Pam Walters - 12/26/2008 4:46 PM CDT SUBJECTIVE: This is a 48 year old female with 1)warts on planter-couple on rt foot, would like to treated, pt reported in past seen derm for foot rash and given topical steroids and still this 2 spots not going away No hx of wart in past 2) rt foot swelling-on dorsal surface, no new trauma Pt tried using cam walker and not liked much-stopped using after couple of days, able to walk ok with some pain, still feeling rt foot is swollen,able to bear weight ok Past Medical History Diagnosis Date ??? [...] NO ACTIVE MEDICATIONS . OBJECTIVE: Filed Vitals: 12/26/2008 4:23 PM BP: 142/84 Pulse: 97 Temp: 98.7 ??F (37.1 ??C) TempSrc: Oral Height: 6' (1.829 m) Weight: 321 lb (145.605 kg) SpO2: 98% EXAM: Constitutional: healthy, alert and no distress Musculoskeletalextremities -gait normal and normal muscle tone Rt foot -mild diffuse dorsal swelling, no specific tenderness, rom of ankle intact, no calf pain or swelling, neg dandre's sign Integument: there is typical warty lesions on planter surface-2 as noted above ASSESSMENT: This is a 48 year old female with 078.12B Plantar Warts (primary encounter diagnosis) Comment: Plan: after prior consent, cryo freezing and thawing done, pt tolerated well, pt advised to come in every 2-3 weekly until gone, possible side effects discussed with pt including local reaction, redness, irritation, blistering, hypopigmention, scar etc 796.2 Elevated Blood Pressure Reading without Diagnosis of Hypertension Comment: Plan: pt advised to check bp outside, 2-3 times per week, keep diary and follow up in 2-3 weeks or sooner with bp very high 729.5E Foot Pain Comment: Plan: d/w pt options, repeating xrays vs seeing podiatry vs doing mri with her continued isuses Pt chose see podiatry here in [place]-dr. Burroughs -pt to make office visit with podiatry for this Pam Walters MD documented in this encounter Nursing Notes 12/26/2008 4:15 PM CDT >> NEAL JOHANSEN [facility] December 26, 2008 4:25 PM Patient presents with: Derm Problem - wart TX on bottom of right foot, skin is dry x 2 week, also some swelling Annalisa Jacob presents for as above. Initial BP 142/84 Pulse 97 Temp (Src) 98.7 ??F (37.1 ??C) (Oral) Ht 6' (1.829 m) Wt 321 lb (145.605 kg) SpO2 98% LMP Hysterectomy Body mass index is 43.54 kg/(m^2).. BP completed using cuff size: large Neal Johansen STEAM TURBINE ASSEMBLER documented in this encounter Plan of Treatment Not on filedocumented as of this encounter Procedures Procedure Name Priority Date/Time Associated Diagnosis Comme nts HC DESTRUCT BENIGN Routine 01/02/2009 9:51 PM CDT Plantar Wart s LESION, UP TO 14 documented in this encounter Visit Diagnoses Diagnosis Plantar warts - Primary Plantar wart Elevated blood pressure reading without diagnosis of hypertension Foot pain Pain in limb documented in this encounter Care Teams Slasher Tender Helper Relationship Specialty Start Date End Date Subha Ramirez PA-C PCP - General 02/23/02 03/11/10 [facility] [address] [place] [address] documented as of this encounter
--- OUTSIDE RECORDS SUMMARY | 2022-07-27 08:48 | XMS_ITS | Encounter Summary ---
:1960 Author Organization [facility] Address [address] [place] [address] Care Team Providers Name Role Phone Subha Ramirez PA-C Primary Care Provider [phone] Encounter Details Date Type Department Care Team Description 04/18/2008 Therapy Visit [facility] Daniel Jackson, Achilles Tendinitis [address] (Primary Dx) [place] [address] [facility] [phone] [facility]IC[facility] [address] [place] [phone] Social History Tobacco Use Types Packs/Day Years Used Date Smoking Tobacco: Every Day Cigarettes 1 20 Comments: 1/2 ppd Alcohol Use Standard Drinks/Week Comments Yes 0 (1 standard drink = 0.6 oz pure alcoho l) 2 drinks 2x week Sex Assigned at Date Recorded Not on file documented as of this encounter Progress Notes Daniel Jackson - 04/18/2008 2:55 PM CDT Please refer to the daily flowsheet for treatment today and total treatment time. Does this patient have Medicare or Medicaid as primary or secondary insurance? NO Please refer to the discharge evaluation. documented in this encounter Plan of Treatment Not on filedocumented as of this encounter Procedures Procedure Name Priority Date/Time Associated Diagnosis Comme nts ZZC MANUAL THER Routine 04/18/2008 3:29 PM CDT Achilles Tendin itis TECH,1+REGIONS,EA 15 MIN ZC THERAPEUTIC Routine 04/18/2008 3:29 PM CDT Achilles Tendin itis EXERCISES Z ULTRASOUND THERAPY Routine 04/18/2008 3:29 PM CDT Achilles Tendinitis Z ELECTRIC CURRENT Routine 04/18/2008 3:29 PM CDT Achilles T endinitis THERAPY documented in this encounter Visit Diagnoses Diagnosis Achilles tendinitis - Primary Achilles bursitis or tendinitis documented in this encounter Care Teams Garbage Collector Relationship Specialty Start Date End Date Subha Ramirez PA-C PCP - General 02/23/02 03/11/10 [facility] [address] [place] [address] documented as of this encounter
--- OUTSIDE RECORDS SUMMARY | 2022-07-27 08:48 | XMS_ITS | Encounter Summary ---
:1960 Author Organization [facility] Address [address] [place] [address]. [place] [address] Care Team Providers Name Role Phone Subha Ramirez PA-C Primary Care Provider [phone] Encounter Details Date Type Department Care Team Description 04/11/2008 Therapy Visit [facility] Daniel Jackson, Achilles Tendinitis [address] [place] [facility] (Primary Dx) [place] [id number] [facility] [phone] [facility] [address] [place] [phone] Social History Tobacco Use Types Packs/Day Years Used Date Smoking Tobacco: Every Day Cigarettes 1 20 Comments: 1/2 ppd Alcohol Use Standard Drinks/Week Comments Yes 0 (1 standard drink = 0.6 oz pure alcoho l) 2 drinks 2x week Sex Assigned at Date Recorded Not on file documented as of this encounter Progress Notes Daniel Jackson - 04/11/2008 3:30 PM CDT Please refer to the daily flowsheet for treatment today and total treatment time. Does this patient have Medicare or Medicaid as primary or secondary insurance? NO documented in this encounter Plan of Treatment Not on filedocumented as of this encounter Procedures Procedure Name Priority Date/Time Associated Diagnosis Comme nts [facility] MANUAL THER Routine 04/11/2008 3:59 PM CDT Achilles Tendin itis TECH,1+REGIONS,EA 15 MIN [facility] THERAPEUTIC Routine 04/11/2008 3:59 PM CDT Achilles Tendin itis EXERCISES [facility] ULTRASOUND THERAPY Routine 04/11/2008 3:59 PM CDT Achilles Tendinitis [facility] ELECTRIC CURRENT Routine 04/11/2008 3:59 PM CDT Achilles T endinitis THERAPY documented in this encounter Visit Diagnoses Diagnosis Achilles tendinitis - Primary Achilles bursitis or tendinitis documented in this encounter Care Teams Digital Community Manager Relationship Specialty Start Date End Date Subha Ramirez PA-C PCP - General 02/23/02 03/11/10 [facility] [address] [place] [address] documented as of this encounter
--- OUTSIDE RECORDS SUMMARY | 2022-07-27 08:48 | XMS_ITS | Encounter Summary ---
:1960 Author Organization [facility] Address [address] [place] [address] Care Team Providers Name Role Phone Subha Ramirez PA-C Primary Care Provider [phone] Encounter Details Date Type Department Care Team Description 03/08/2008 Therapy Visit [facility] Grady Palma Achilles Tendinitis [phone] [address] Wallace, PT (Primary Dx) [place] [address] [phone] [place] [address] Social History Tobacco Use Types Packs/Day Years Used Date Smoking Tobacco: Every Day Cigarettes 1 20 Comments: 1/2 ppd Alcohol Use Standard Drinks/Week Comments Yes 0 (1 standard drink = 0.6 oz pure alcoho l) 2 drinks 2x week Sex Assigned at Date Recorded Not on file documented as of this encounter Progress Notes Grady Palma - 03/08/2008 3:19 PM CDT Initial evaluation was completed. Please refer to the daily flowsheet for treatment today and total treatment time. Does this patient have Medicare or Medicaid as primary or secondary insurance? NO documented in this encounter Plan of Treatment Not on filedocumented as of this encounter Procedures Procedure Name Priority Date/Time Associated Diagnosis Comme nts [facility] MANUAL THER Routine 03/08/2008 3:20 PM CDT Achilles Tendin itis TECH,1+REGIONS,EA 15 MIN [facility] THERAPEUTIC Routine 03/08/2008 3:20 PM CDT Achilles Tendin itis EXERCISES [facility] ELECTRIC CURRENT Routine 03/08/2008 3:20 PM CDT Achilles T endinitis THERAPY documented in this encounter Visit Diagnoses Diagnosis Achilles tendinitis - Primary Achilles bursitis or tendinitis documented in this encounter Care Teams Corpsman Relationship Specialty Start Date End Date Subha Ramirez PA-C PCP - General 02/23/02 03/11/10 [facility] [address] [place] [address] documented as of this encounter
--- OUTSIDE RECORDS SUMMARY | 2022-07-27 08:48 | XMS_ITS | Encounter Summary ---
:1960 Author Organization [facility] Address [address] [place] [address] Care Team Providers Name Role Phone Subha Ramirez PA-C Primary Care Provider [phone] Reason for Visit Reason Comments Musculoskeletal Problem right foot swollen - since D heydi, Encounter Details Date Type Department Care Team Description 12/20/2008 Office Visit [facility] Pam Walters MD Foot Pain (Primary Dx); [facility]le Pain [phone] [address] Social History Tobacco Use Types Packs/Day [...] Reading Time Taken Comments Blood Pressure 138/78 12/20/2008 2:52 PM CDT Pulse 84 12/20/2008 2:52 PM CDT Temperature 36.8 ??C (98.3 ??F) 12/20/2008 2:52 PM CDT Respiratory Rate - - Oxygen Saturation 97% 12/20/2008 2:52 PM CDT Inhaled Oxygen Concentration - - Weight 146.5 kg (323 lb) 12/20/2008 2:52 PM CDT Height 182.9 cm (6') 12/20/2008 2:52 PM CDT Body Mass Index 43.81 12/20/2008 2:52 PM CDT documented in this encounter Progress Notes Pam Walters - 12/20/2008 2:59 PM CDT SUBJECTIVE: This is a 48 year old female with rt foot fullness rather than pain and swelling-pt feels dorsal of rt foot is swollen since 07/2008,no prior injury or trauma that she recalls, no fevers, no chills, no leg or calf pain or swelling, able to walk ok and weight bearing ok with some pain, No ankle issues, no cp or sob or other concerns,no other jointaches No other systemic issues Past Medical History Diagnosis Date ??? Obesity, [...] NO ACTIVE MEDICATIONS . OBJECTIVE: Filed Vitals: 12/20/2008 2:52 PM BP: 138/78 Pulse: 84 Temp: 98.3 ??F (36.8 ??C) TempSrc: Oral Height: 6' (1.829 m) Weight: 323 lb (146.512 kg) SpO2: 97% EXAM: Constitutional: healthy, alert and no distress Musculoskeletalextremities normal- , gait normal and normal muscle tone Neurologic: negative Manuel lower legs-nl-no calf pain or swelling noted Rt lower ext-nl knee and lower leg and no calf pain or swelling noted on exam, neg dandre's sign Rt ankle with mild medial mellolus tendernss with slight puffiness, rom intact Rt foot-mild dorsal of whole foot appears diffusely swollen compared to left one Rt lower ext-pulsation and sensation intact ASSESSMENT: This is a 48 year old female with 729.5E Foot Pain (primary encounter diagnosis) Comment: no fx noted Plan: pt was given camwalker with pending rads report, no fx seen, pt to use camwalker until able tobear weight ok and walk without any pain-then d/c this 719.47D Ankle Pain Comment: Plan: RT X-RAY ANKLE 3+ VW, RT X-RAY FOOT 3+ VW Pt will use above as noted Follow up in 1 week or sooner if no improvement and/or still having problems and/or any worsening-with continued isuses, consider repeat x-rays or mri as needed Pam Walters MD documented in this encounter Nursing Notes 12/20/2008 2:45 PM CDT >> IMANI GUZMAN Fri December 20, 2008 2:55 PM Annalisa Jacob presents for above. Initial BP 138/78 Pulse 84 Temp (Src) 98.3 ??F (36.8 ??C) (Oral) Ht 6' (1.829 m) Wt 323 lb (146.512 kg) SpO2 97% LMP Hysterectomy Body mass index is 43.81 kg/(m^2).. BP completed using cuff size: large Imani Britggs documented in this encounter Plan of Treatment Not on filedocumented as of this encounter Procedures Procedure Name Priority Date/Time Associated Diagnosis Comme nts [facility] RT X-RAY FOOT Routine 12/20/2008 3:26 PM Ankle pain Resu lts for this 3+ VW CDT procedure are i n the results section. [facility] RT X-RAY ANKLE Routine 12/20/2008 3:24 PM Ankle pain Res ults for this 3+ VW CDT procedure are i n the results section. documented in this encounter Results RT X-RAY FOOT 3+ VW (12/20/2008 3:26 PM CDT) Anatomical Region Laterality Modality Other Specimen (Source) Anatomical Collection Method Collection Time Re ceived Time Location / / Volume Laterality 12/20/2008 3:26 PM CDT Impressions 12/23/2008 9:02 AM CDT FOOT G/E 3 VIEWS RIGHT ??December 20, 2008 3:2 6:00 PM HISTORY: ??Pain. COMPARISON: ??None. IMPRESSION: ??Inferior calcaneal spur. O therwise negative. Pam Walters MD [facility] RT X-RAY ANKLE 3+ VW (12/20/2008 3:24 PM CDT) Anatomical Region Laterality Modality Other Specimen (Source) Anatomical Collection Method Collection Time Re ceived Time Location / / Volume Laterality 12/20/2008 3:24 PM CDT Impressions 12/23/2008 9:01 AM CDT ANKLE G/E 3 VIEW RIGHT ??December 20, 2008 3:2 4:00 PM HISTORY: ??Pain. COMPARISON: ??None. IMPRESSION: ??Negative. Pam Walters MD GENERAL IMAGING documented in this encounter Visit Diagnoses Diagnosis Foot pain - Primary Pain in limb Ankle pain Pain in joint, ankle and foot documented in this encounter Care Teams Edger Automatic Relationship Specialty Start Date End Date Subha Ramirez PA-C PCP - General 02/23/02 03/11/10 [facility] [address] [place] [address] documented as of this encounter
--- OUTSIDE RECORDS SUMMARY | 2022-07-27 08:48 | XMS_ITS | Encounter Summary ---
:1960 Author Organization [facility] Address [address] [place] [address] Care Team Providers Name Role Phone Subha Ramirez PA-C Primary Care Provider [phone] Reason for Referral Specialty Diagnoses / Procedures Referred By Contact Refer red To Contact Meme Roth MD [facility] [address] [place] [address] Referral ID Status Reason Start Date Expiration Date Visits Requ ested Visits Authorized Reason for Visit Reason Comments Knee right R> L knee pain; Right knee h yerextension mechanism many yrs ago; Pt. notes instability. Encounter Details Date Type Department Care Team Description 05/20/2009 Office Visit [facility] Primary Localized Orthopedic MD Dipti Osteoarthrosis, [facility] Leg ( Primary Dx) [facility] [address] [facility] [address] [facility] [address] [place] [phone] Social History Tobacco Use Types Packs/Day Years Used Date Smoking Tobacco: Former Cigarettes 1 20 Comments: 07/2008 Alcohol Use Standard Drinks/Week Comments Yes 0 (1 standard drink = 0.6 oz pure alcoho l) 2 drinks 2x week Sex Assigned at Date Recorded Not on file documented as of this encounter Last Filed Vital Signs Vital Sign Reading Time Taken Comments Blood Pressure 120/80 05/20/2009 8:06 AM CDT Pulse - - Temperature - - Respiratory Rate - - Oxygen Saturation - - Inhaled Oxygen Concentration - - Weight 138.3 kg (305 lb) 05/20/2009 8:06 AM CDT Height 180.3 cm (5' 11) 05/20/2009 8:06 AM CDT Body Mass Index 42.54 05/20/2009 8:06 AM CDT documented in this encounter Progress Notes Ira Meme Resendez - 05/20/2009 8:26 AM CDT SUBJECTIVE: Annalisa Jacob is a 48 year old female who is seen in consultation at the request of Dr. Walters for Right knee pain that started a number of years ago. Onset: Patient reports an incident of hyperextension while in High School and she has ongoing right knee pain/problems since that time. Patient reports the knee feels instable and in the past has been able to recover from the giving out or falls much faster than currently. Patient is complaining that she is also having increased pain with WB on the right knee when the instability occurs. Immediate symptoms: immediate pain, instability, inability to bear weight directly after injury. Mitigating Factors: ibuprofen and neoprene sleve. Symptoms have been worsening since that time. Prior history of related problems: previous knee injury in high school, apparent ACL tear, has had instability and pain ever since. Patients past medical, surgical, social and family histories reviewed. Past medical history notable for: No significant medical history REVIEW OF SYSTEMS: CONSTITUTIONAL:NEGATIVE for fever, chills, change in weight INTEGUMENTARY/SKIN: NEGATIVE for worrisome rashes, moles or lesions MUSCULOSKELETAL:See HPI above NEURO: NEGATIVE for weakness, dizziness or paresthesias BP 120/80 Ht 5' 11 (1.803 m) Wt 305 lb (138.347 kg) LMP Hysterectomy EXAM: GENERAL APPEARANCE: healthy, alert and no distress GAIT: normal SKIN: no suspicious lesions or rashes NEURO: Normal strength and tone, mentation intact and speech normal PSYCH: mentation appears normal and affect normal/bright MUSCULOSKELETAL: RIGHT KNEE Inspection: AP/lateral alignment normal, small effusion, No quad atrophy Tender: lateral joint line, medial joint line Non-tender: lateral patellar facet, medial patellar facet, MCL, LCL Active Range of Motion: decreased flexion 130 degrees, pain with flexion, full extension, pain with extension Strength: quad 5/5, Hamstrings 5/5, Gastroc 5/5, Tibialis anterior 5/5 and Peroneals 5/5 Special tests: positive Gucci's test, negative posterior drawer, positive hyperflexion external rotation test, positive Avila's, no apprehension with lateral stress of the patella, mild laxity with varus and valgus stress Also examined: hip full range of motion, foot strong dorsalis pedis pulse LEFT KNEE: Inspection: AP/lateral alignment normal Non-tender: patellar [...] apprehension with lateral stress of the patella. After risks, benefits and complications of steroid injection were discussed with the patient she elected to proceed. Using sterile technique, the area was first prepped with betadyne and an alcohol swab. A 22 gauge needle was used to inject 80 mg DepoMedrol and 5 cc of 0.5% marcaine into the knee on the right. Annalisa tolerated the procedure well without complications. 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 Discussed options for treatment. Recommended aquatic therapy. This was set up for the pt. Wt loss. Will have her try glucosamine with chondroitin. Referral to orthotics to try wrap around knee braces for activity. Discussed injection options. A steroid injection was done in the office today. Ice tonight if needed. F/u prn continued pain. X-RAY INTERPRETATION: No Knee X-Rays indicated, recent MRI and xrays were reviewed. documented in this encounter Nursing Notes 05/20/2009 8:00 AM CDT >> Kelli Sauceda May 20, 2009 8:09 AM Patient presents with: Knee right - R> L knee pain; Right knee hyerextension mechanism many yrs ago; Pt. notes instability. Initial BP 120/80 Ht 5' 11 (1.803 m) Wt 305 lb (138.347 kg) LMP Hysterectomy Body mass index is 42.54 kg/(m^2).. BP completed using cuff size: large Kelli Tyson, ATC documented in this encounter Plan of Treatment Not on filedocumented as of this encounter Procedures Procedure Name Priority Date/Time Associated Diagnosis Comme nts HC DRAIN/INJ MAJOR Routine 05/20/2009 10:07 AM Primary Localiz ed JOINT/BURSA W/O US CDT Osteoarthrosis, Lower Leg documented in this encounter Visit Diagnoses Diagnosis Primary localized osteoarthrosis, lower leg - Primary documented in this encounter Care Teams Commercial Artist Relationship Specialty Start Date End Date Subha Ramirez PA-C PCP - General 02/23/02 03/11/10 [facility] [address] [place] [address] documented as of this encounter
--- OUTSIDE RECORDS SUMMARY | 2022-07-27 08:48 | XMS_ITS | Encounter Summary ---
:1960 Author Organization [facility] Address [address] [place] [address] Care Team Providers Name Role Phone Subha Ramirez PA-C Primary Care Provider [phone] Reason for Visit Reason Comments Musculoskeletal Problem pt is having pain up the mynor k of her left foot/heel. pt states she completed PT. Encounter Details Date Type Department Care Team Description 08/22/2008 Office Visit [facility] Isai Bunn Pain i n the Foot (Primary Dx); [facility] F, DPM Achilles Bursitis or Tendinitis; [address] [place] [address] [place]inus Deformity of Foot[place] [phone] [facility] [address] [place], [place] [address] Social History Tobacco Use Types Packs/Day Years [...] Sign Reading Time Taken Comments Blood Pressure 134/90 08/22/2008 3:45 PM PROCESS CONSULTANT Pulse 60 08/22/2008 3:45 PM PROCESS CONSULTANT Temperature - - Respiratory Rate - - Oxygen Saturation - - Inhaled Oxygen Concentration - - Weight 139.5 kg (307 lb 9.6 oz) 08/22/2008 3:45 PM PROCESS CONSULTANT Height - - Body Mass Index 41.72 08/14/2008 4:00 PM PROCESS CONSULTANT documented in this encounter Progress Notes Isai Bunn - 08/23/2008 9:09 PM CST Subjective: Patient is seen today as a f/u pt with a 6-12 month hx of lt heel/ achilles tendon pain. Most painful upon rising in a.m. or after prolonged sitting. Denies history of trauma. Limited improvement w/ PT. ROS: No hx of wound healing problems, or phlebitis, +obesity Objective: Pulses are palpable +2/4 DP & PT bilateral. Sensation to light touch is intact. Muscle strength and ROM is within normal limits. No sign of ulceration, infection, or drainage noted. Upon weightbearing there is an increase in the medial longitudinal arch b/l. Mild pain upon palpation to the insertion of the achilles tendon on b/l. Mild gastrocnemius equinus noted b/l. X-rays taken show posterior and plantar heel spur. Assessment: Insertional achilles tendonitis lt Pes cavus foot type b/l Gastrocnemius equinus b/l Obesity Plan: Discussed etiology and treatment options with the patient. Recommended modifying activities, supportive shoes, ice, stretching, and not going barefoot. CAM walker immobilization and f/u 3-4 wks. ESS CONSULTANT documented in this encounter Nursing Notes 08/22/2008 3:45 PM CST >> SAM PRUITT Jes Aug 22, 2008 4:04 PM Patient presents with: Musculoskeletal Problem - pt is having pain up the back of her left foot/heel. pt states she completed PT. Initial BP 134/90 Pulse 60 Wt 307 lb 9.6 oz (139.526 kg) LMP Hysterectomy Estimated Body massindex is 41.72 kg/(m^2) as calculated from: Height of 6' 0 (1.829 m) as of 08/14/08 Weight of 307 lb 9.6 oz (139.526 kg) as of this encounter bp completed using cuff size: large right Sam Pruitt CMA documented in this encounter Plan of Treatment Not on filedocumented as of this encounter Visit Diagnoses Diagnosis Pain in the foot - Primary Pain in limb Achilles bursitis or tendinitis Equinus deformity of foot, acquired documented in this encounter Care Teams Test Pilot Relationship Specialty Start Date End Date Subha Ramirez PA-C PCP - General 02/23/02 03/11/10 [facility] [address] [place] [phone] documented as of this encounter
--- OUTSIDE RECORDS SUMMARY | 2022-07-27 08:48 | XMS_ITS | Encounter Summary ---
:1960 Author Organization [facility] Address [address] [place] [address] Care Team Providers Name Role Phone Subha Ramirez PA-C Primary Care Provider [phone] Reason for Referral Office Workup No CT/MRI - Closed Specialty Diagnoses / Procedures Referred By Contact Refer red To Contact Diagnoses Special screening for malignant neoplasms, colon Juan Luis Walters MD [facility] GASTROENTEROLOGY-[address] [place] [address] [address] [place] [address] Phone: Fax: Referral ID Status Reason Start Date Expiration Date Visits Requ ested Visits Authorized [id number] Closed 12/04/2008 08/14/2011 1 1 Reason for Visit Reason Comments Physical last PX was over a year 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 Exam not sure, had hysterectomy i n 1998 Blood Draw pt IS fasting Encounter Details Date Type Department Care Team Description 12/04/2008 Office Visit [facility] Juan Luis Walters MD Routine Physical Examination (Primary Dx ); Clinic Critical access hospital Special Screening for Malign ant Neoplasms, Colon; [address] [facility] Other Screening Mammogram; [place], [place] [address] [facility] Screening for Diabetes Mellitus; [address] [place] [address] Screening for Lipoid Disorders; [phone] Eczema; (Work) OBESITY NOS; [phone] Postmenopausal Status; (Fax) Leg Swelling; Routine General Medical Examination at a Health Care Facility Social History Tobacco Use Types Packs/Day Years Used Date Smoking Tobacco: Former Cigarettes 20 Comments: 07/2008 Alcohol Use Standard Drinks/Week Comments Yes 0 (1 standard drink = 0.6 oz pure alcoho l) 2 drinks 2x week Sex Assigned at Date Recorded Not on file documented as of this encounter Last Filed Vital Signs Vital Sign Reading Time Taken Comments Blood Pressure 130/86 12/04/2008 9:05 AM CDT Pulse 79 12/04/2008 9:05 AM CDT Temperature 36.7 ??C (98.1 ??F) 12/04/2008 9:05 AM CDT Respiratory Rate - - Oxygen Saturation 96% 12/04/2008 9:05 AM CDT Inhaled Oxygen Concentration - - Weight 145.6 kg (321 lb) 12/04/2008 9:05 AM CDT Height 182.9 cm (6') 12/04/2008 9:05 AM CDT Body Mass Index 43.54 12/04/2008 9:05 AM CDT documented in this encounter Progress Notes Juan Luis Walters - 12/04/2008 9:47 AM CDT SUBJECTIVE: CC: Winston Jacob is a 48 year old female who presents for HCM HPI: leg swelling-by the end of the day is worse, no sob with activity, no hx of heart, liver and Kidney dis, pt denied any calf apin or swelling, no inacitvity, NO CP, No pnd and using one pillow to sleep-no prior hx of chf and weight as per chart-pt has some weight gain HISTORIES: Patient Active Problem List Diagnoses Code ??? OBESITY NOS 278.00 ??? BACKACHE NOS 724.5 ??? PAIN IN LIMB 729.5 Past Medical History Diagnosis Date ??? Obesity, [...] Medication Sig ??? NO ACTIVE MEDICATIONS . Allergies Allergen Reactions ??? Penicillins History Social History ??? Marital Status: Spouse Name: Matteo Number of Children: 1 ??? 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 Tobacco Use: Quit -- 1.0 packs/day for 20 years 07/2008 ??? Alcohol Use: Yes 2 drinks 2x week ??? Drug Use: No ??? Sexually Active: Yes -- Male partner(s) Control/ Protection: Surgical complete hysterectomy Other Topics Concern ??? Caffeine Concern Yes 1 lg coffee, occas soda ??? Special Diet No dietary calcium daily, low F/V ??? Exercise Yes not regular ??? Seat Belt Yes ??? Self-exams Yes Social History Narrative for 22 years, working and going to school. 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 Cancer Maternal Grandfather at 50's-60's YOA, stomach CA ??? Neurological Maternal Grandmother at 80's, had alzheimer's ??? C.A.D. Paternal Grandmother late 30's of [place] ??? Cancer Paternal Grandfather 60's of lung CA ??? Family History Negative Mother ??? Respiratory Father sarcoidosis ??? Obesity Sister ??? Obesity Brother ??? Colon CA No family hx of ??? Breast CA No family hx of HEALTH MAINTENANCE: Health Maintenance Topic Date Due ??? Mammo annual screen( [facility] assigned) 09/12/2008 ??? Pap q 1 yr diagnostic inExanet message 02/11/2007 ??? Colon cancer screen( [facility] assigned) 2008 ??? Dexa q3 yr 04/12/2009 ??? Ldl q 5 yrs 02/07/2013 ??? Tetanus q10 yr 07/15/2013 REVIEW OF OUTSIDE RECORDS: NO ROS: CONSTITUTIONAL:NEGATIVE for fever, chills, change in weight INTEGUMENTARY/SKIN: NEGATIVE for worrisome rashes, moles or lesions EYES: NEGATIVE for vision changes or irritation ENT/MOUTH: NEGATIVE for ear, mouth and throat problems RESP:NEGATIVE for significant cough or SOB BREAST: NEGATIVE for masses, tenderness or discharge CV: NEGATIVE for chest pain, palpitations or peripheral edema GI: NEGATIVE for nausea, abdominal pain, heartburn, or change in bowel habits : see obhx otherwise neg MUSCULOSKELETAL: NEGATIVE for significant arthralgias or myalgia NEURO: NEGATIVE for weakness, dizziness or paresthesias ENDOCRINE: NEGATIVE for temperature intolerance, skin/hair changes HEME/ALLERGY/IMMUNE: NEGATIVE for bleeding problems PSYCHIATRIC: NEGATIVE for changes in mood or affect BP 130/86 Pulse 79 Temp (Src) 98.1 ??F (36.7 ??C) (Oral) Ht 6' (1.829 m) Wt 321 lb (145.605 kg) SpO2 96% LMP Hysterectomy EXAM: GENERAL APPEARANCE: healthy, alert and no distress EYES: Eyes grossly normal to inspection, PERRL and conjunctivae and sclerae normal HENT: ear canals and TM's normal and nose and mouth without ulcers or lesions NECK: no adenopathy, no asymmetry, masses, or scars and thyroid normal to palpation RESP: lungs clear to auscultation - no rales, rhonchi or wheezes BREAST: normal without masses, tenderness or nipple discharge and no palpable axillary masses or adenopathy CV: regular rates and rhythm, normal S1 S2, no S3 or S4 and no murmur, click or rub LYMPHATICS: normal ant/post cervical and supraclavicular nodes ABDOMEN: soft, nontender, without hepatosplenomegaly or masses and bowel sounds normal (female): normal post-hysterectomy exam without masses or discharge MS: extremities normal- no gross deformities noted-POSITIIVE FOR WISAM PRETIBIAL TRACE AND ALSO ANKLE EDEMA, NO CALF PAIN OR SWELLING, NEG YOSELIN'S SIGN SKIN: no suspicious lesions or rashes NEURO: Normal strength and tone, mentation intact and speech normal PSYCH: mentation appears normal and affect normal/bright ASSESSMENT/PLAN V70.0F Routine Physical Examination (primary encounter diagnosis) Comment: Plan: A THIN LAYER PAP SCREEN V76.51 Special Screening for Malignant Neoplasms, Colon Comment: Plan: CONSULT [facility] GASTRO V76.12 Other Screening Mammogram Comment: Plan: pt reported already scheduled this V77.1 Screening for Diabetes Mellitus Comment: Plan: V7791 Screening for Lipoid Disorders Comment: Plan: A.M.A. LIPID PANEL 692.9BU Eczema Comment: Plan: pt is seeing derm for foot eczema, now resovled 278.00 OBESITY NOS Comment: Plan: work on diet and exercise, weight reduction V49.81B Postmenopausal Status Comment: Plan: DEXA,BONE DENSITY,AXIAL SKELETON Check abov 729.81N Leg Swelling Comment: Plan: A.M.A. COMPREHENSIVE MET.PANEL, CBC WITH PLATELETS, NT-PROBNP, OUTPATIENT Ddx considered, check above, encouraged to elevate legs, low salt in diet, further work up with resutls of above, clinically not dvt with wisam trace pretibial and ankle edema noted today Consider further eval including echo or ct of abd and pelvis if indicated Recommend healthy lifestyle, diet and exercies, monthly SBE,periodic skin exam- ABCD of skin exam,adequate calcium and vitamin D in diet, seeing by dentist on regular basis, and seeing eye doctor as needed, usage of seatbelt in car all the time. I have discussed with patient the risks, benefits, medications, treatment options and modalities. I have instructed the patient to call or schedule a follow-up appointment if any problems or failureto improve. 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 Initial BP 130/86 Pulse 79 Temp (Src) 98.1 ??F (36.7 ??C) (Oral) Ht 6' (1.829 m) Wt 321 lb (145.605 kg) SpO2 96% LMP Hysterectomy Body mass index is 43.54 kg/(m^2).. BP completed using cuff size: daniela Johansen [employer] documented in this encounter Plan of Treatment Not on filedocumented as of this encounter Procedures Procedure Name Priority Date/Time Associated Comments Diagnosis ZZ CONSULT Routine 07/09/2009 Special Screening [place] [facility] for Malignant Neoplasms, Colon HCL NT-PROBNPBNP Routine 12/04/2008 9:53 AM Leg Swelling Resul ts for this CDT procedure are i n the results section. CL AFF CBC WITH Routine 12/04/2008 9:53 AM Leg Swelling Result s for this PLATELETS CDT procedure are i n the results section. HCL COMPREHENSIVE Routine 12/04/2008 9:53 AM Leg Swelling Resu lts for this METABOLIC PANEL CDT procedure ar e in the results section. CL AFF A.M.A. LIPID Routine 12/04/2008 9:53 AM Screening for R esults for this PANEL CDT Lipoid Disorders procedure a re in the results section. HCL PAP THIN LAYER Routine 12/04/2008 12:00 Routine Physical R esults for this SCREEN AM CDT Examination procedure are i n the results section. documented in this encounter Results CONSULT [facility] (07/09/2009) Narrative This result has an attachment that is no t available. Juan Luis Walters MD REFERRAL NT-PROBNP, OUTPATIENT (12/04/2008 9:53 AM CDT) athologist Signature N-Terminal Pro 22 0 - 125 [facility] Bnp pg/mL CAMPUS LABS Comment: Reference ranges shown and results marco ed as abnormal are for outpatient settings. Establishing a baseline value for each individual patient is useful for follow-up. Suggested inpatient cut points for confirming diagnosis of CHF are: ?>450 pg/mL (age less than 50) ?>900 pg/mL (age 50-75) ?>1800 pg/mL (greater than 75 yr s). An inpatient or emergency department NT -proBNP <300 pg/mL effectively rules out acute CHF, with 99% negative predictive value. Specimen Anatomical Collection Method Collection Time Receive d Time (Source) Location / / Volume Laterality 12/04/2008 9:53 AM 9 9:54 CDT AM CDT Juan Luis Walters MD LABORATORY Performing Organization Address City/State/ZIP Code Phon e Number [facility] [address] [place], [place] [id number] [place] [address] LABS (ABNORMAL) CBC WITH PLATELETS (12/04/2008 9:53 AM CDT) athologist Signature WBC 7.7 4.0 - 11.0 [facility] 10e9/L [facility] RBC Count 4.98 3.8 - 5.2 [facility] 10e12/L [facility] Hemoglobin 14.7 11.7 - [facility] 15.7 g/dL [facility] Hematocrit 44.3 35.0 - [facility] 47.0 % [facility] MCV 89 78 - 100 [facility] MCH 29.5 26.5 - [facility] 33.0 pg [facility] MCHC 33.2 31.5 - [facility] 36.5 g/dL [facility] RDW 12.6 10.0 - [facility] 15.0 % [facility] Platelet Count 460 (H) 150 - 450 [facility] 10e9/L [facility] Specimen Anatomical Collection Method Collection Time Receive d Time (Source) Location / / Volume Laterality 12/04/2008 9:53 AM 9 9:54 CDT AM CDT Juan Luis Walters MD LABORATORY Performing Organization Address City/State/ZIP Code Phon e Number [facility] [address] [address] [place], [place] [id number] [facility] A.M.A. COMPREHENSIVE MET.PANEL (12/04/2008 9:53 AM CDT) athologist Signature Sodium 139 133 - 144 [facility] mmol/L [facility] LAB Potassium 4.6 3.4 - 5.3 [facility] mmol/L [facility] Chloride 101 94 - 109 [facility] mmol/L [facility] Carbon Dioxide 27 20 - 32 [facility] mmol/L [facility] Anion Gap 11 6 - 17 [facility] mmol/L [facility] Glucose 97 60 - 99 [facility] mg/dL [facility] LAB Urea Nitrogen 9 7 - 30 [facility] mg/dL [facility] Creatinine 0.74 0.52 - [facility] 1.04 mg/dL CLINIC LAB Comment: New IDMS-traceable calibration beginning 12/14/07 GFR Estimate 83 >60 mL/min/1.7m2 [facility] GFR Estimate If Black >90 >60 mL/min/1.7m2 [facility] LAB Calcium 9.5 8.5 - 10.4 mg/dL [facility] Bilirubin Total 0.6 0.2 - 1.3 mg/dL [facility] Albumin 4.3 3.9 - 5.1 g/dL [facility] Comment: Reference range changed on 04/16. Protein Total 7.5 6.8 - 8.8 g/dL [facility] Comment: As of 07, reference range reflects plasma specimen type. Alkaline Phosphatase 78 40 - 150 U/L [facility] ALT 32 0 - 50 U/L [facility] CLIN IC LAB AST 25 0 - 45 U/L [facility] CLIN IC LAB Specimen Anatomical Collection Method Collection Time Receive d Time (Source) Location / / Volume Laterality 12/04/2008 9:53 AM 9 9:54 CDT AM CDT Juan Luis Walters MD LABORATORY Performing Organization Address City/State/ZIP Code Phon e Number [facility] [address] [place] [address] [facility] LAB (ABNORMAL) A.M.A. LIPID PANEL (12/04/2008 9:53 AM CDT) athologist Signature Cholesterol 162 0 - 200 [facility] mg/dL CLINIC LAB Comment: LDL Cholesterol is the primary guide to therapy: LDL-cholesterol goal in high risk patients is <100 mg/dL and in very high risk patients is <70 mg/dL. The NCEP recommends further evaluation of: patients with cholesterol <200 mg/dL if additional risk factors are present, cholesterol >240 mg/dL, triglycerides >150 mg/dL, or HDL <40 mg/dL. Triglycerides 97 0 - 150 mg/dL [facility] LAB HDL Cholesterol 45 (L) 50 - 110 mg/dL [facility] LDL Cholesterol Calculated 98 0 - 129 mg/dL [facility] Comment: LDL Cholesterol is the primary guide to therapy: LDL-cholesterol goal in high risk patients is <100 mg/dL and in very high risk patients is <70 mg/dL. VLDL-Cholesterol 19 0 - 30 mg/dL [facility] Cholesterol/HDL Ratio 3.6 0.0 - 5.0 [facility] Specimen Anatomical Collection Method Collection Time Receive d Time (Source) Location / / Volume Laterality 12/04/2008 9:53 AM 9 9:54 CDT AM CDT Juan Luis Walters MD LABORATORY Performing Organization Address City/State/ZIP Code Phon e Number [facility] [address] [place] [address] [facility] A THIN LAYER PAP SCREEN (12/04/2008 12:00 AM CDT) Component Value Ref Test Analysis Performed At [facility] Range Method Time Signature PAP NIL COPATH Copath Report COPATH Patient Name: WINSTON JACOB MR#: [id number] Specimen #: [id number] Collected: 12/04/2008 Received: 12/05/2008 Reported: 12/09/2008 08:27 Ordering Phy(s): JUAN LUIS WALTERS SPECIMEN/STAIN PROCESS: Pap thin layer prep screening ([facility]) ? Pap-Cyto x 1, Reflex HPV x 1 SOURCE: Cervical, endocervical ---- Pap thin layer prep screening ([facility]) SPECIMEN ADEQUACY: Satisfactory for evaluation. -Transformation zone component absent. CYTOLOGIC INTERPRETATION: Negative for Intraepithelial Lesion or Malignancy Electronically signed out by: OSIRIS Oquendo(ASCP) [facility] CLINICAL HISTORY: Complete Hysterectomy, Previous normal pap Date of Last Pap: 02/11/06, TESTING LAB LOCATION: [address] ??[address] COLLECTION SITE: Client: ??[facility] Location: [facility] (R) Specimen (Source) Anatomical Collection Method Collection Time Re ceived Time Location / / Volume Laterality 12/04/2008 12/05/2008 10:4 3 AM CDT Juan Luis Walters MD LABORATORY Performing Organization Address City/State/ZIP Code Phon e Number [facility] documented in this encounter Visit Diagnoses Diagnosis Routine physical examination - Primary Routine general medical examination at a health care facility Special screening for malignant neoplasm s, colon Other screening mammogram Screening for diabetes mellitus Screening for lipoid disorders Eczema Contact dermatitis and other eczema, due to unspecified cause OBESITY NOS Obesity, unspecified Postmenopausal status Asymptomatic postmenopausal status (age- related) (natural) Leg swelling Swelling of limb Routine general medical examination at a health care facility documented in this encounter Care Teams Punch Operator Relationship Specialty Start Date End Date Subha Ramirez PA-C PCP - General 02/23/02 03/11/10 [facility] [address] [place] [address] documented as of this encounter
--- OUTSIDE RECORDS SUMMARY | 2022-07-27 08:48 | XMS_ITS | Encounter Summary ---
:1960 Author Organization [facility] Address [address] [place] [address] Care Team Providers Name Role Phone Subha Ramirez PA-C Primary Care Provider Encounter Details Date Type Department Care Team Description 03/03/[address] [facility] Jj Walters MD [address] [address] [place] [address] [phone] (Wo rk) Social History Tobacco Use Types [...] Name Priority Date/Time Associated Diagnosis Comme nts COLONOSCOPY Routine 03/03/2009 8:00 AM Results f or this CDT procedure are i n the results section . documented in this encounter Results COLONOSCOPY (03/03/2009 8:00 AM CDT) [facility] Method Time Signature COLONOSCOPY [facility] RAD IOLOGY RESULTS Patient Name: Annalisa Jacob ?Gender: F ? Procedure Date: 03/03/2009 8: 00 AM ? Date of : 1960 ? Age: 48 ? Admit Type: Outpatient ? Attending MD: Luciano Vazquez MD ? Procedure: ? Colonoscopy Indications: ? Average risk screening for malignant neoplasm in the ? colon Providers: ? Luciano Vazquez MD Referring MD: ?Pam Walters MD Medicines: ? Midazolam 3 mg IV, Fentanyl 100 mi crograms IV Complications: ? No immediate complications Procedure: ? - Prior to the procedure, a History and Physical was ? performed, and patient medication allergies were ? reviewed. The patient is competent. The risks and ? benefits of the procedure and the sedation options and ? risks were discussed with the patient. All questions ? were answered and informed consent was obtained. Patient ? identification and proposed procedure were verified by ? the physician in the endoscopy suite. Mental Status ? Examinati on: normal. Airway Examination: normal ? oropharyngeal airway and neck mobility. Respiratory ? Examination: clear to auscultation. CV Examination: ? normal. Prophylactic Antibiotics: The patient does not ? require prophylactic antibiotics. Prior Anticoagulants: ? The patient has taken no previous anticoagulant or ? antiplatelet agents. ASA Grade Assessment: II - A ? patient with mild systemic disease. After reviewing the ? risks and benefits, the patient was deemed in ? satisfactory condition to undergo the procedure. The ? anesthesia plan was to use moderate sedation / analgesia ? (conscious sedation). Immedia tely prior to ? administration of medications, the patient was ? re-assessed for adequacy to receive sedatives. The heart ? rate, respiratory rate, oxygen saturations, blood ? pressure, adequacy of pulmonary ventilation, and ? response to care were monitored throughout the ? procedure. The physical status of the patient was ? re-assessed after the procedu re. ? After obtaining informed consent, the colonoscope was ? passed under direct vision. Throughout the procedure, ? the patie nt's blood pressure, pulse, and oxygen ? saturations were monitored continuously. The [id number]-[id number] ? #[id number] was introduced through the anus and advanced to ? the cecum, identified by appendiceal orifice & IC valve. ? The colonoscopy was performed without difficulty. The ? patient tolerated the procedure well. The quality of the ? prep was good. ? Findings: ? Two sessile polyps we re found in the sigmoid colon. The polyps were 2 mm ? in size. These polyps were removed with a cold forceps. Resection and ? retrieval were comple te. A sessile polyp was found in the distal sigmoid ? colon. The polyp was 3 mm in size. Three sessil e polyps were found in ? the distal sigmoid colon. The polyps were 2 to 3 mm i n size. These ? polyps were removed with a cold snare. Resection and retrieval were ? complete. A benign ap pearing pedunculated polyp was found in the rectum. ? The polyp was 5 mm in size. The polyp was removed wit h a hot snare. ? Resection and retrieval were complete. ? Impression: ?- Two 2 mm jaleesa yps in the sigmoid colon. Resected and ? retrieved. ? - A 3 mm polyp in the distal sigmoid colon. All polyp ? tissue remains intact. ? - Three 2 to 3 mm polyps in the distal sigmoid colon. ? Resected and retrieved. ? - A 5 mm polyp in the rectum. Resected and retrieved. Recommendation: ?- Repeat colonoscopy in 3 years for surveillance. ? - If the pathology report reveals adenomatous tissue, ? then repeat the colonoscopy for surveillance in 3 years. ? Brian Vazquez M.D. Luciano aVzquez MD Signed Date: 03/03/2009 8:40 AM Number of Addenda: 0 I was physically present for the entire viewing portion of t he exam. Note initiated on 03/03/2009 8:02 AM COLONOSCOPY RADIOLOGY RESULTS Specimen (Source) Anatomical Collection Method Collection Time Re ceived Time Location / / Volume Laterality 03/03/2009 8:00 AM CDT Pam Walters MD PROCEDURES Performing Organization Address City/State/ZIP Code Phon e Number RADIOLOGY RESULTS documented in this encounter Visit Diagnoses Not on filedocumented in this encounter Care Teams On Air Director Relationship Specialty Start Date End Date Subha Ramirez PA-C PCP - General 02/23/02 03/11/10 [facility] [address] [place] [address] (work) documented as of this encounter
--- OUTSIDE RECORDS SUMMARY | 2022-07-27 08:48 | XMS_ITS | Encounter Summary ---
:1960 Author Organization [facility] Address [address] [place] [address]. [place] [address] Care Team Providers Name Role Phone Subha Ramirez PA-C Primary Care Provider [phone] Encounter Details Date Type Department Care Team Description 04/01/2008 Therapy Visit [facility] Daniel Jackson, Achilles Tendinitis [address] (Primary Dx) [place] [address] [facility] [phone] [facility] [address] [place] [id number] Social History Tobacco Use Types Packs/Day Years Used Date Smoking Tobacco: Every Day Cigarettes 1 20 Comments: 1/2 ppd Alcohol Use Standard Drinks/Week Comments Yes 0 (1 standard drink = 0.6 oz pure alcoho l) 2 drinks 2x week Sex Assigned at Date Recorded Not on file documented as of this encounter Progress Notes Daniel Jackson - 04/01/2008 3:33 PM CDT Please refer to the daily flowsheet for treatment today and total treatment time. Does this patient have Medicare or Medicaid as primary or secondary insurance? NO documented in this encounter Plan of Treatment Not on filedocumented as of this encounter Procedures Procedure Name Priority Date/Time Associated Diagnosis Comme nts ZZC MANUAL THER Routine 04/01/2008 3:34 PM CDT Achilles Tendin itis TECH,1+REGIONS,EA 15 MIN ZZC THERAPEUTIC Routine 04/01/2008 3:34 PM CDT Achilles Tendin itis EXERCISES ZZC ULTRASOUND THERAPY Routine 04/01/2008 3:34 PM CDT Achilles Tendinitis ZZC ELECTRIC CURRENT Routine 04/01/2008 3:34 PM CDT Achilles T endinitis THERAPY documented in this encounter Visit Diagnoses Diagnosis Achilles tendinitis - Primary Achilles bursitis or tendinitis documented in this encounter Care Teams Contact Agent Relationship Specialty Start Date End Date Subha Ramirez PA-C PCP - General 02/23/02 03/11/10 [facility] [address] [place] [address] documented as of this encounter
--- OUTSIDE RECORDS SUMMARY | 2022-07-27 08:48 | XMS_ITS | Encounter Summary ---
:1960 Author Organization [place] Address [address] [place] [address] Care Team Providers Name Role Phone Subha Ramirez PA-C Primary Care Provider [phone] Reason for Referral Referral not Required - Closed Specialty Diagnoses / Procedures Referred By Contact Refer red To Contact Diagnoses Knee pain Pam Walters MD [facility] [address] [place] [address] [place] [address] Phone: [phone] Fax: [phone] Referral ID Status Reason Start Date Expiration Date Visits Requ ested Visits Authorized [id number] Closed 05/16/2009 08/14/2011 1 1 Encounter Details Date Type Department Care Team Description 05/16/2009 Orders Only [facility] Pam Walters MD Knee Pain (Primary Dx) Clinic [address] [facility] [address] [place] [address] Social History Tobacco Use Types [...] leg documented in this encounter Care Teams Lurer Relationship Specialty Start Date End Date Subha Ramirez PA-C PCP - General 02/23/02 03/11/10 [facility] [address] [place] [address] documented as of this encounter
--- OUTSIDE RECORDS SUMMARY | 2022-07-27 08:48 | XMS_ITS | Encounter Summary ---
:1960 Author Organization [place] Address [address] [place] [address] Care Team Providers Name Role Phone Subha Ramirez PA-C Primary Care Provider [phone] Encounter Details Date Type Department Care Team Description 03/03/2009 Hospital Pathology [facility] Luciano Vazquez, [facility] Results [place] [address] [place] [address] (Wo rk) Social History Tobacco Use Types [...] Name Priority Date/Time Associated Diagnosis Comme nts CL AFF SURGICAL Routine 03/03/2009 12:00 AM Resul ts for this PATHOLOGY CDT procedure are i n the results section. documented in this encounter Results Hospital - SURGICAL PATHOLOGY (03/03/2009 12:00 AM CDT) Component Value Ref Test Analysis Performed At [facility] Range Method Time Signature Copath Report Patient Name: WINSTON JACOB COPATH MR#: [id number] Specimen #: [id number] Collected: 03/03/2009 Received: 03/03/2009 Reported: 03/04/2009 13:42 Ordering Phy(s): LUCIANO VAZQUEZ Additional Phy(s): JUAN LUIS MAYER SPECIMEN(S): A: Sigmoid colon polyps B: Distal sigmoid colon polyps C: Rectal polyp FINAL DIAGNOSIS: A. ??Colon, sigmoid, biopsies - Hyperplastic polyps (two). B. ??Colon, distal sigmoid, biopsies - 1. ?Fragments of tubular adenomas. 2. ? Hyperplastic polyps (two). C. ??Rectum, biopsy - juvenile polyp. COMMENT: Colonoscopy report was reviewed. Electronically signed out by: Sal Avery M.D. CLINICAL HISTORY: Screening. GROSS: A, ??The specimen, labeled sigmoid colon polyps, consists of three fragments of soft mg tissue measuring 0.2 cm in diameter ea ch. ??The specimen is submitted in its entirety. B. ??The specimen, labeled distal sigmoid colon, three poly ps, consists of six fragments of mg to pink soft tissue measuring 0.2 cm in diameter each. ??The specimen is submitted in its entirety. C. ??The specimen, labeled rectal polyp, consists of 0.8 c m in diameter mg to pink to red polypoid fragment of tissue. ??The polyp is bisected and submitted in its entirety. ??MGP/kd MICROSCOPIC: A. ??Sections show three fragments of colonic mucosa with tw o hyperplastic polyps. ??There is no evidence of adenoma or ma lignancy. B. ??Sections show two hyperplastic polyps and four fragment s of tubular adenomas. ??There is no evidence of high grade dysplasia or malignancy. C. ??Sections show a juvenile polyp. ??It is characterized b y polypoid configuration, ulcerated surface, architectural distortion o f crypts and lamina propria with edema and acute and chronic inflammation . ??There is no evidence of dysplasia or malignancy. MGP/kd 03-04-09 TESTING LAB LOCATION: [address] ??[id number] COLLECTION SITE: Client: [facility] Location: ENDO (R) Specimen (Source) Anatomical Collection Method Collection Time Re ceived Time Location / / Volume Laterality 03/03/2009 03/03/2009 9:08 AM CDT Luciano Vazquez MD LABORATORY Performing Organization Address City/State/ZIP Code Phon e Number [place] documented in this encounter Visit Diagnoses Not on filedocumented in this encounter Care Teams White Washer Relationship Specialty Start Date End Date Subha Ramirez PA-C PCP - General 02/23/02 03/11/10 [facility] [address] [place] [phone] documented as of this encounter
--- OUTSIDE RECORDS SUMMARY | 2022-07-27 08:48 | XMS_ITS | Encounter Summary ---
:1960 Author Organization [place] Address [address] [place] [address]. [place] [address] Care Team Providers Name Role Phone Subha Ramirez PA-C Primary Care Provider [phone] Encounter Details Date Type Department Care Team Description 04/16/2008 Therapy Visit [facility] Daniel Jackson, Achilles Tendinitis [address] (Primary Dx) [place] [address] [facility] [phone] [facility] [place] [address] [place] [id number] Social History Tobacco Use Types Packs/Day Years Used Date Smoking Tobacco: Every Day Cigarettes 1 20 Comments: 1/2 ppd Alcohol Use Standard Drinks/Week Comments Yes 0 (1 standard drink = 0.6 oz pure alcoho l) 2 drinks 2x week Sex Assigned at Date Recorded Not on file documented as of this encounter Progress Notes Daniel Jackson - 04/16/2008 7:30 AM CDT Please refer to the daily flowsheet for treatment today and total treatment time. Does this patient have Medicare or Medicaid as primary or secondary insurance? NO documented in this encounter Plan of Treatment Not on filedocumented as of this encounter Procedures Procedure Name Priority Date/Time Associated Diagnosis Comme nts ZZC MANUAL THER Routine 04/16/2008 8:00 AM CDT Achilles Tendin itis TECH,1+REGIONS,EA 15 MIN ZC THERAPEUTIC Routine 04/16/2008 8:00 AM CDT Achilles Tendin itis EXERCISES Z ULTRASOUND THERAPY Routine 04/16/2008 8:00 AM CDT Achilles Tendinitis Z ELECTRIC CURRENT Routine 04/16/2008 8:00 AM CDT Achilles T endinitis THERAPY documented in this encounter Visit Diagnoses Diagnosis Achilles tendinitis - Primary Achilles bursitis or tendinitis documented in this encounter Care Teams Rewind Operator Relationship Specialty Start Date End Date Subha Ramirez PA-C PCP - General 02/23/02 03/11/10 [facility] [address] [place] [address] documented as of this encounter
--- OUTSIDE RECORDS SUMMARY | 2022-07-27 08:48 | XMS_ITS | Encounter Summary ---
:1960 Author Organization [place] Address [address] [place] [address] Care Team Providers Name Role Phone Subha Ramirez PA-C Primary Care Provider [phone] Reason for Visit Reason Comments Heart Problem fluttery pain in her chest x 1 month, it comes and goes, sometimes she can loose her breath Encounter Details Date Type Department Care Team Description 08/14/2008 Office Visit [facility] Duncan Rowe Chest Pain (Primary Dx); Clinic [place] MD Jerman PVC (Premature Ventricular Contraction) [address] [place], [place] CLINIC [address] [address] [facility] [phone] [place] [address] (Wo rk) Social History Tobacco Use Types [...] Reading Time Taken Comments Blood Pressure 132/84 08/14/2008 4:00 PM DOBBY LOOM WEAVER Pulse 81 08/14/2008 4:00 PM DOBBY LOOM WEAVER Temperature 36.7 ??C (98 ??F) 08/14/2008 4:00 PM DOBBY LOOM WEAVER Respiratory Rate - - Oxygen Saturation 99% 08/14/2008 4:00 PM DOBBY LOOM WEAVER Inhaled Oxygen Concentration - - Weight 139.3 kg (307 lb) 08/14/2008 4:00 PM DOBBY LOOM WEAVER Height 182.9 cm (6') 08/14/2008 4:00 PM DOBBY LOOM WEAVER Body Mass Index 41.64 08/14/2008 4:00 PM DOBBY LOOM WEAVER documented in this encounter Progress Notes Duncan Rowe - 08/14/2008 4:48 PM CST Annalisa Jacob is a 47 year old female who presents for evaluation of: 1. flutter feeling in chest. Has happened 3 times in the last month. Lasts for 1-2 seconds only with 2 episodes, other episode lasted approximately 5 seconds. She feels as if her breath is momentarily affected as well. She has no radiation of pain, no diaphoresis, and no nausea or vomiting associated with the pain. It is not made worse by exertion. She reports being under increased stress, having significant amounts of coffee daily, and smoking. NO recent infection. Problems list, allergies, social and family history, and past medical history, are all reviewed and updated in [facility]. Current outpatient prescriptions prior to encounter: PREMARIN 0.625 MG/GM VA CREA 1gm nightly for one week, then 1-2 times weekly as needed OBJECTIVE: BP 132/84 Pulse 81 Temp (Src) 98 ??F (36.7 ??C) (Oral) Ht 6' (1.829 m) Wt 307 lb (139.254 kg) SpO2 99% LMP Hysterectomy GENERAL APPEARANCE: healthy, alert and no distress NECK: no adenopathy, no asymmetry, masses, or scars and thyroid normal to palpation. No carotid bruits. RESP: lungs clear to auscultation - no rales, rhonchi or wheezes CV: regular rates and rhythm, normal S1 S2, no S3 or S4 and no murmur, click or rub - ABD: soft, nontender, no hepatosplenomegaly. No abdominal bruits. EXT: No cyanosis, clubbing, swelling or edema in lower extremities. Assessment/Plan: 786.50F Chest Pain (primary encounter diagnosis) Comment: Plan: ELECTROCARDIOGRAM, COMP W/READ 427.69AQ PVC (Premature Ventricular Contraction) Comment: Plan: TSH W/FREE T4 REFLEX, A.M.A. BASIC METABOLIC PANEL, CBC WITH PLATELETS Explained natural history of PVCs, likely benign nature. Discussed behavioral modifications which may reduce occurrences. Handout given. Patient will call or return to clinic prn if these symptoms worsen or fail to improve as anticipated. Y LOOM WEAVER documented in this encounter Nursing Notes 08/14/2008 4:00 PM CST >> NEAL JOHANSEN Wed Aug 14, 2008 4:07 PM Patient presents with: Heart Problem - fluttery pain in her chest x 1 month, it comes and goes, sometimes she can loose her breath Annalisa Jacob presents for as above. Initial BP 132/84 Pulse 81 Temp (Src) 98 ??F (36.7 ??C) (Oral) Ht 6' (1.829 m) Wt 307 lb (139.254 kg) SpO2 99% LMP Hysterectomy Body mass index is 41.64 kg/(m^2).. BP completed using cuff size: large Neal Johansen ELECTRIC METER SETTER documented in this encounter Plan of Treatment Not on filedocumented as of this encounter Procedures Procedure Name Priority Date/Time Associated Diagnosis Comme nts CL AFF CBC WITH Routine 08/14/2008 4:51 PM PVC (Premature Resu lts for this PLATELETS DOBBY LOOM WEAVER Ventricular procedure are i n Contraction) the results section. HCL BASIC METABOLIC Routine 08/14/2008 4:51 PM PVC (Premature Results for this PANEL DOBBY LOOM WEAVER Ventricular procedure are i n Contraction) the results section. HCL TSH W/FREE T4 Routine 08/14/2008 4:51 PM PVC (Premature Re sults for this REFLEX DOBBY LOOM WEAVER Ventricular procedure are i n Contraction) the results section. ZZC Routine 08/14/2008 4:27 PM Chest Pain Results f or this ELECTROCARDIOGRAM, DOBBY LOOM WEAVER procedure are in COMP W/READ the results section. documented in this encounter Results CBC WITH PLATELETS (08/14/2008 4:51 PM DOBBY LOOM WEAVER) P athologist Signature WBC 8.8 4.0 - 11.0 [place] 10e9/L [facility] RBC Count 4.78 3.8 - 5.2 [place] 10e12/L [facility] Hemoglobin 14.7 11.7 - [facility] 15.7 g/dL [facility] Hematocrit 43.5 35.0 - [facility] 47.0 % [facility] MCV 91 78 - 100 [facility] MCH 30.8 26.5 - [place] 33.0 pg [facility] MCHC 33.8 31.5 - [place] 36.5 g/dL [facility] RDW 13.4 10.0 - [place] 15.0 % [facility] Platelet Count 404 150 - 450 [place] 10e9/L [facility] Specimen Anatomical Collection Method Collection Time Receive d Time (Source) Location / / Volume Laterality 08/14/2008 4:51 PM 8 4:52 DOBBY LOOM WEAVER PM DOBBY LOOM WEAVER Duncan Rowe MD LABORATORY Performing Organization Address City/State/ZIP Code Phon e Number [facility] [id number] [place] [address] [facility] (ABNORMAL) A.M.A. BASIC METABOLIC PANEL (08/14/2008 4:51 PM DOBBY LOOM WEAVER) P athologist Signature Sodium 144 133 - 144 [place] mmol/L [facility] Potassium 4.4 3.4 - 5.3 [place] mmol/L [facility] Chloride 107 94 - 109 [place] mmol/L [facility] Carbon Dioxide 24 20 - 32 [place] mmol/L [facility] Anion Gap 13 6 - 17 [place] mmol/L [facility] Glucose 110 (H) 60 - 99 [place] mg/dL [facility] Urea Nitrogen 12 5 - 24 [place] mg/dL [facility] Creatinine 0.68 0.52 - [place] 1.04 mg/dL [facility] Comment: New IDMS-traceable calibration beginning 12/14/07 GFR Estimate >90 >60 mL/min/1.7m2 [place] E [facility] GFR Estimate If Black >90 >60 mL/min/1.7m2 [facility] Calcium 9.9 8.5 - 10.4 mg/dL [facility] Specimen Anatomical Collection Method Collection Time Receive d Time (Source) Location / / Volume Laterality 08/14/2008 4:51 PM 8 4:52 DOBBY LOOM WEAVER PM DOBBY LOOM WEAVER Duncan Rowe MD LABORATORY Performing Organization Address City/State/ZIP Code Phon e Number [facility] [address] [place] [address] [facility] TSH W/FREE T4 REFLEX (08/14/2008 4:51 PM DOBBY LOOM WEAVER) P athologist Signature TSH 1.30 0.4 - 5.0 [facility] mU/L [facility] Specimen Anatomical Collection Method Collection Time Receive d Time (Source) Location / / Volume Laterality 08/14/2008 4:51 PM 8 4:52 DOBBY LOOM WEAVER PM DOBBY LOOM WEAVER Duncan Rowe MD LABORATORY Performing Organization Address City/State/ZIP Code Phon e Number [facility] [address] [place] [address] [facility] ELECTROCARDIOGRAM, COMP W/READ (08/14/2008 4:27 PM DOBBY LOOM WEAVER) Narrative This result has an attachment that is no t available. Duncan Roew MD EKG TECHNICAL documented in this encounter Visit Diagnoses Diagnosis Chest pain - Primary Chest pain, unspecified PVC (premature ventricular contraction) Other premature beats documented in this encounter Care Teams Medical Transcription Supervisor Relationship Specialty Start Date End Date Subha Ramirez PA-C PCP - General 02/23/02 03/11/10 [facility] [address] [place] [address] documented as of this encounter
--- OUTSIDE RECORDS SUMMARY | 2022-07-27 08:48 | XMS_ITS | Encounter Summary ---
:1960 Author Organization [place] Address [address] [place] [address] Care Team Providers Name Role Phone Subha Ramirez PA-C Primary Care Provider [phone] Encounter Details Date Type Department Care Team Description 04/03/2008 Therapy Visit [facility] Daniel Jackson, Achilles Tendinitis [address] (Primary Dx) [place] [address] [facility] [phone] ATHLETIC MEDICIN E [address] [place] [phone] Social History Tobacco Use Types Packs/Day Years Used Date Smoking Tobacco: Every Day Cigarettes 1 20 Comments: 1/2 ppd Alcohol Use Standard Drinks/Week Comments Yes 0 (1 standard drink = 0.6 oz pure alcoho l) 2 drinks 2x week Sex Assigned at Date Recorded Not on file documented as of this encounter Progress Notes Daniel Jackson - 04/03/2008 12:26 PM CDT Please refer to the daily flowsheet for treatment today and total treatment time. Does this patient have Medicare or Medicaid as primary or secondary insurance? NO documented in this encounter Plan of Treatment Not on filedocumented as of this encounter Procedures Procedure Name Priority Date/Time Associated Diagnosis Comme nts [facility] THERAPEUTIC Routine 04/03/2008 12:27 PM Achilles Tendiniti s EXERCISES CDT [facility] ULTRASOUND THERAPY Routine 04/03/2008 12:27 PM Achilles Te ndinitis CDT [facility] ELECTRIC CURRENT Routine 04/03/2008 12:27 PM Achilles Tend initis THERAPY CDT [facility] MANUAL THER Routine 04/03/2008 12:27 PM Achilles Tendiniti s TECH,1+REGIONS,EA 15 MIN CDT documented in this encounter Visit Diagnoses Diagnosis Achilles tendinitis - Primary Achilles bursitis or tendinitis documented in this encounter Care Teams Credit Consultant Relationship Specialty Start Date End Date Subha Ramirez PA-C PCP - General 02/23/02 03/11/10 [facility] [address] [place] [address] documented as of this encounter
--- OUTSIDE RECORDS SUMMARY | 2022-07-27 08:48 | XMS_ITS | Encounter Summary ---
:1960 Author Organization [place] Address [address] [place] [address] Care Team Providers Name Role Phone Subha Ramirez PA-C Primary Care Provider [phone] Encounter Details Date Type Department Care Team Description 03/28/2008 [facility] Damari Pinto, Achilles Tendinitis [address] (Primary Dx) [place] [address] [facility] [phone] [facility] [address] [address] Social History Tobacco Use Types Packs/Day Years Used Date Smoking Tobacco: Every Day Cigarettes 1 20 Comments: 1/2 ppd Alcohol Use Standard Drinks/Week Comments Yes 0 (1 standard drink = 0.6 oz pure alcoho l) 2 drinks 2x week Sex Assigned at Date Recorded Not on file documented as of this encounter Progress Notes Damari Pinto - 03/28/2008 3:42 PM CDT Please refer to the daily flowsheet for treatment today and total treatment time. Does this patient have Medicare or Medicaid as primary or secondary insurance? NO documented in this encounter Plan of Treatment Not on filedocumented as of this encounter Procedures Procedure Name Priority Date/Time Associated Diagnosis Comme nts ZZC MANUAL THER Routine 03/28/2008 3:42 PM CDT Achilles Tendin itis TECH,1+REGIONS,EA 15 MIN ZZC THERAPEUTIC Routine 03/28/2008 3:42 PM CDT Achilles Tendin itis EXERCISES ZZC ULTRASOUND THERAPY Routine 03/28/2008 3:42 PM CDT Achilles Tendinitis ZZC ELECTRIC STIMULATION Routine 03/28/2008 3:42 PM CDT Achill es Tendinitis THERAPY documented in this encounter Visit Diagnoses Diagnosis Achilles tendinitis - Primary Achilles bursitis or tendinitis documented in this encounter Care Teams Production Generalist Relationship Specialty Start Date End Date Subha Ramirez PA-C PCP - General 02/23/02 03/11/10 [facility] [address] [place] [address] documented as of this encounter
--- OUTSIDE RECORDS SUMMARY | 2022-07-27 08:48 | XMS_ITS | Encounter Summary ---
:1960 Author Organization [place] Address [address] [place] [address]. [place] [address] Care Team Providers Name Role Phone Subha Ramirez PA-C Primary Care Provider [phone] Encounter Details Date Type Department Care Team Description 03/19/[address] [facility] Daniel Jackson, Achilles Tendinitis [address] (Primary Dx) [place] [address] [facility] [phone] ATHLETIC MEDICIN E [address] [place] [phone] Social History Tobacco Use Types Packs/Day Years Used Date Smoking Tobacco: Every Day Cigarettes 1 20 Comments: 1/2 ppd Alcohol Use Standard Drinks/Week Comments Yes 0 (1 standard drink = 0.6 oz pure alcoho l) 2 drinks 2x week Sex Assigned at Date Recorded Not on file documented as of this encounter Progress Notes Daniel Jackson - 03/19/2008 2:25 PM CDT Please refer to the daily flowsheet for treatment today and total treatment time. Does this patient have Medicare or Medicaid as primary or secondary insurance? NO documented in this encounter Plan of Treatment Not on filedocumented as of this encounter Procedures Procedure Name Priority Date/Time Associated Diagnosis Comme nts ZZC MANUAL THER Routine 03/19/2008 2:55 PM CDT Achilles Tendin itis TECH,1+REGIONS,EA 15 MIN ZZC THERAPEUTIC Routine 03/19/2008 2:55 PM CDT Achilles Tendin itis EXERCISES Z ULTRASOUND THERAPY Routine 03/19/2008 2:55 PM CDT Achilles Tendinitis ZZ ELECTRIC CURRENT Routine 03/19/2008 2:55 PM CDT Achilles T endinitis THERAPY documented in this encounter Visit Diagnoses Diagnosis Achilles tendinitis - Primary Achilles bursitis or tendinitis documented in this encounter Care Teams Ceo Na Relationship Specialty Start Date End Date Subha Ramirez PA-C PCP - General 02/23/02 03/11/10 [facility] [address] [place] [address] documented as of this encounter
--- OUTSIDE RECORDS SUMMARY | 2022-07-27 08:48 | XMS_ITS | Encounter Summary ---
:1960 Author Organization [place] Address [address] [place] [address]. [place] [address] Care Team Providers Name Role Phone Subha Ramirez PA-C Primary Care Provider [phone] Encounter Details Date Type Department Care Team Description 03/26/2008 Therapy Visit [facility] Daniel Jackson, Achilles Tendinitis [address] (Primary Dx) [place] [id number] [facility] [phone] ATHLETIC MEDICIN E [address] [place] [phone] Social History Tobacco Use Types Packs/Day Years Used Date Smoking Tobacco: Every Day Cigarettes 1 20 Comments: 1/2 ppd Alcohol Use Standard Drinks/Week Comments Yes 0 (1 standard drink = 0.6 oz pure alcoho l) 2 drinks 2x week Sex Assigned at Date Recorded Not on file documented as of this encounter Progress Notes Daniel Jackson - 03/26/2008 12:57 PM CDT Please refer to the daily flowsheet for treatment today and total treatment time. Does this patient have Medicare or Medicaid as primary or secondary insurance? NO documented in this encounter Plan of Treatment Not on filedocumented as of this encounter Procedures Procedure Name Priority Date/Time Associated Diagnosis Comme nts ZZC MANUAL THER Routine 03/26/2008 1:32 PM CDT Achilles Tendin itis TECH,1+REGIONS,EA 15 MIN ZZC THERAPEUTIC Routine 03/26/2008 1:32 PM CDT Achilles Tendin itis EXERCISES ZC ULTRASOUND THERAPY Routine 03/26/2008 1:32 PM CDT Achilles Tendinitis ZZC ELECTRIC CURRENT Routine 03/26/2008 1:32 PM CDT Achilles T endinitis THERAPY documented in this encounter Visit Diagnoses Diagnosis Achilles tendinitis - Primary Achilles bursitis or tendinitis documented in this encounter Care Teams Freight Rate Clerk Relationship Specialty Start Date End Date Subha Ramirez PA-C PCP - General 02/23/02 03/11/10 [facility] [address] [place] [address] documented as of this encounter
--- OUTSIDE RECORDS SUMMARY | 2022-07-27 08:48 | XMS_ITS | Encounter Summary ---
:1960 Author Organization [facility] Address [address] [place] [address] Care Team Providers Name Role Phone Subha Ramirez PA-C Primary Care Provider [phone] Reason for Referral - Closed Specialty Diagnoses / Procedures Referred By Contact Refer red To Contact Diagnoses Pam Vaughan MD [address] [address] Referral ID Status Reason Start Date Expiration Date Visits Requ ested Visits Authorized [id number] Closed 09/04/2008 08/14/2011 1 1 IC TANK CLEANER Reason for Visit Reason Onset Date Comments Results 09/03/2008 Encounter Details Date Type Department Care Team Description 09/03/2008 Telephone [facility] Jj Walters MD Results [facility] [address] [address] [place] [address] (Wo rk) Social History Tobacco Use Types Packs/Day Years Used Date Smoking Tobacco: Former Cigarettes 1 20 Comments: 08/15/08 Alcohol Use Standard Drinks/Week Comments Yes 0 (1 standard drink = 0.6 oz pure alcoho l) 2 drinks 2x week Sex Assigned at Date Recorded Not on file documented as of this encounter Miscellaneous Notes Telephone Encounter - Pam Walters - 09/04/2008 3:42 PM CST Pt called pt-discussed with pt resutls Pt to Follow up if no improvement and/or still having problems and/or any worsening Pt reported at times draining with blood and clear draigne, no chills, no fever, no uti symtoms Try placing warm packs, ibuprofen prn for discomfort, pt to see ob with continued isuses Pam Walters MD IC TANK CLEANER Telephone Encounter - Reina Sinclair - 09/04/2008 3:32 PM SEPTIC TANK CLEANER Staff Message copied by REINA SINCLAIR on TueSep 04, 2008 3:32 PM ------ Message from: MICHAEL CASIANO Created: TueSep 04, 2008 11:02 AM Regarding: Phone Message/Romeo Contact: Annalisa has a questions regarding her recent test results. Please call her at [phone]. DL 1-21@11:02am IC TANK CLEANER Telephone Encounter - Pam Walters - 09/04/2008 10:05 AM [facility] IC TANK CLEANER Telephone Encounter - Pam Walters - 09/03/2008 4:36 PM CST Please let pt know, fairly unremarkable findings, except some skin thikening at area of lump-otherwise no further involvement Pam Walters MD IC TANK CLEANER Telephone Encounter - Reina Sinclair - 09/03/2008 2:16 PM CST Pt requesting results of CT scan. Reina Sinclair RN IC TANK CLEANER Telephone Encounter - Reina Sinclair - 09/03/2008 2:16 PM SEPTIC TANK CLEANER Staff Message copied by REINA SINCLAIR on TueSep 03, 2008 2:16 PM ------ Message from: MICHAEL CASIANO Created: Sohail Sep 03, 2008 1:44 PM Regarding: CT results/Walters Contact: Please call Annalisa at work [phone] results. DL 09-03@1:44pm IC TANK CLEANER documented in this encounter Plan of Treatment Not on filedocumented as of this encounter Visit Diagnoses Diagnosis Lump - Primary Localized superficial swelling, mass, or lump documented in this encounter Care Teams Drier Tender Relationship Specialty Start Date End Date Subha Ramirez PA-C PCP - General 02/23/02 03/11/10 [facility] [address] [facility] [place] [address] documented as of this encounter
--- OUTSIDE RECORDS SUMMARY | 2022-07-27 08:49 | XMS_ITS | Encounter Summary ---
:1960 Author Organization [facility] Address [address] [place] [address] Care Team Providers Name Role Phone Subha Ramirez PA-C Primary Care Provider [phone] Reason for Visit Reason Comments Radiology Visit Encounter Details Date Type Department Care Team Description 03/07/2006 Orders Only [facility] MEDICAL EXAM [place] (Primary Dx) [address] [place] [address] Social History Tobacco Use Types [...] Priority Date/Time Associated Diagnosis Comme nts C MAMMOGRAM, SCREENING Routine 03/07/2006 Routine Medical Ex am Results for this procedure are i n the results section . documented in this encounter Results MAMMOGRAM, SCREENING (03/07/2006) P athologist Signature MAMMOGRAM Anatomical Region Laterality Modality Other Impressions 03/07/2006 Electronically filed by Randa Walls ??03/07/2006 ??10:29 AM RADIOLOGIST'S INTERPRETATION: Breast parenchyma: ??fatty/mild densitie s IMAGING IMPRESSION: (CATEGORY-1) NEGATIVE Comments: 03-07-06 Annalisa Jacob ?: 56 The breasts are completely fatty replace d with no nodular densities demonstrated. Palpable nodulel may be related to fatty globules or lipoma which would be obscur ed by surrounding fat. Saeed Lynn M.D./dinah D/T: 03-08-06 Subha Ramirez PA-C SPECIAL IMAGING STUDIES documented in this encounter Visit Diagnoses Diagnosis Routine general medical examination at a health care facility - Primary documented in this encounter Care Teams Community Center Worker Relationship Specialty Start Date End Date Subha Ramirez PA-C PCP - General 02/23/02 03/11/10 [facility] [address] [place] [address] documented as of this encounter
--- OUTSIDE RECORDS SUMMARY | 2022-07-27 08:49 | XMS_ITS | Encounter Summary ---
:1960 Author Organization [facility] Address [facility] [place] [address] Care Team Providers Name Role Phone Subha Ramirez PA-C Primary Care Provider [phone] Reason for Referral Referral not Required - Closed Specialty Diagnoses / Procedures Referred By Contact Refer red To Contact Diagnoses Enthesopathy of unspecified site Achilles bursitis or tendinitis Isai Bunn DPM [facility] [address] [facility] [address] [place] [address] Referral ID Status Reason Start Date Expiration Date Visits Requ ested Visits Authorized [id number] Closed 02/20/2008 08/14/2011 1 1 Reason for Visit Reason Comments Musculoskeletal Problem pt is having pain in the mynor k of her left heel where she has a bump that has been there f or about a year. Encounter Details Date Type Department Care Team Description 02/20/2008 Office Visit [facility] sIai Bunn Enthes opathy of Unspecified Site; Clinic Vivian Desai DPM Achilles Bursitis or Tendinitis [address] [place], [place] [address] [address] [place] [address] [phone] Social History Tobacco Use Types Packs/Day Years [...] - Inhaled Oxygen Concentration - - Weight 139.3 kg (307 lb) 02/20/2008 3:30 PM CDT Height - - Body Mass Index 41.64 02/05/2008 11:00 AM CDT documented in this encounter Progress Notes Isai Bunn - 02/25/2008 9:32 PM CDT Subjective: Patient is seen today as a new pt referral from Dr. Gonzalez with a 6-12 month hx of lt heel/achilles tendon pain. Most painful upon rising in a.m. or after prolonged sitting. Denies history oftrauma. Has tried changing shoewear, OTC inserts, and NSAIDS without much success. PMH, meds, all, PSH, PFH, and soc hx were reviewed ROS: No hx of wound healing problems, [...] shoes, ice, stretching, and not going barefoot. PT w/ iontophoresis and consider immobilization in the future. Thank you for the consultation Copy sent documented in this encounter Nursing Notes 02/20/2008 3:30 PM CDT >> SAM Fletcherludin Feb 20, 2008 3:40 PM Patient presents with: Musculoskeletal Problem - pt is having pain in the back of her left heel where she has a bump that has been there for about a year. Sam León CMA documented in this encounter Plan of Treatment Not on filedocumented as of this encounter Procedures Procedure Name Priority Date/Time Associated Diagnosis Comme [facility] LT X-RAY HEEL Routine 02/20/2008 4:11 PM Enthesopathy of R esults for this CDT unspecified site procedure are in Achilles bursitis or the res ults tendinitis section. documented in this encounter Results LT X-RAY HEEL (02/20/2008 4:11 PM CDT) Anatomical Region Laterality Modality Other Specimen (Source) Anatomical Collection Method Collection Time Re ceived Time Location / / Volume Laterality 02/20/2008 4:11 PM CDT Impressions 02/21/2008 3:34 PM CDT CALCANEUS/HEEL 2 VIEW LEFT Feb 20, 2008 4 :11:00 PM HISTORY: Enthesopathy of Achilles tendon insertion. Possible bursitis or tendinitis. IMPRESSION: Two views of the left calcan eus demonstrate no acute fracture or dislocation. There is a smal l well corticated calcaneal heel spur. Achilles fat pad appears inta ct with some mild soft tissue swelling along the posterior aspect of t he calcaneus potentially representing bursal inflammation. Follow up left ankle and Achilles tendon MRI for further assessment. Isai Bunn DPM GENERAL IMAGING documented in this encounter Visit Diagnoses Diagnosis Enthesopathy of unspecified site Achilles bursitis or tendinitis documented in this encounter Care Teams Radial Saw Operator Relationship Specialty Start Date End Date Subha Ramirez PA-C PCP - General 02/23/02 03/11/10 [facility] [address] [place] [address] documented as of this encounter
--- OUTSIDE RECORDS SUMMARY | 2022-07-27 08:49 | XMS_ITS | Encounter Summary ---
:1960 Author Organization [facility] Address [address] [place] [address] Care Team Providers Name Role Phone Subha Ramirez PA-C Primary Care Provider Reason for Visit Reason Comments Nicotine Dependence discuss starting chantix, si de effects Refill Request discuss premarin, has been o ff for a while - discuss restarting again Encounter Details Date Type Department Care Team Description 08/14/2007 Office Visit [facility] MARCOS Ramirez US E DISORDER (Primary Dx); [facility] [place] ALANA Mascorro [facility] [address] [place], [place] [address] [facility] [address] [place], [place] [phone] [address] Social History Tobacco Use Types Packs/Day [...] Sign Reading Time Taken Comments Blood Pressure 124/78 08/14/2007 8:45 AM APPRENTICE STYLIST Pulse - - Temperature - - Respiratory Rate - - Oxygen Saturation - - Inhaled Oxygen Concentration - - Weight 138.3 kg (305 lb) 08/14/2007 8:45 AM APPRENTICE STYLIST Height 182.9 cm (6') 08/14/2007 8:45 AM APPRENTICE STYLIST Body Mass Index 41.37 08/14/2007 8:45 AM APPRENTICE STYLIST documented in this encounter Progress Notes Subha Ramirez - 08/14/2007 9:05 AM CST SUBJECTIVE: Annalisa is a 46 year old female presenting with --- 1- discuss chantix for smoking cessation, smoking less than 1 PPD, has been able to quit in past. 2- had been using estrogen cream which was helping, stopped and is noting dryness and irritation. Hxof ERIKA/BSO for nonCA reasons. Past Medical History Diagnosis Date ??? OBESITY NOS ??? TOBACCO USE DISORDER ??? ABSENCE OF MENSTRUATION surgical menopause ??? DISC DEGENERATION NOS 03/20 MRI, mild DDD, mild bulging L3-4 Current Outpatient Rx Name Route Sig Dispense Refill ? ? CHANTIX STARTING MONTH YANG 0.5 MG X 11 & 1 MG X 42 OR MISC Oral 0.5mg daily for 3 days, then0.5mg twice daily for 4 days, then 1mg twice daily. Take with food and stop smoking 7 days after treatment begins. 1 yang 0 ??? CHANTIX CONTINUING MONTH YANG 1 MG OR TABS Oral 1 TABLET TWICE DAILY 60 4 ??? PREMARIN 0.625 MG/GM VA CREA Vaginal 1gm nightly for one week, then 1-2 times weekly as needed 1tube 2 ??? NO ACTIVE MEDICATIONS . Allergies Allergen Reactions ??? Penicillins OBJECTIVE: Well appearing; NAD; vitals stable; Reviewed past weights, BP and cholesterol ASSESSMENT:/PLAN: 305.1 TOBACCO USE DISORDER (primary encounter diagnosis) Note: Plan: CHANTIX STARTING MONTH YANG 0.5 MG X 11 & 1 MG X 42 OR MISC, CHANTIX CONTINUING MONTH YANG 1 MG OR TABS Discussed med, side effects and benefits, instructions for use. There have been warnings from the FDA to be on the lookout for erratic behavior, suicidal ideation, or suicidal behavior. There is one case report of a , though it appears alcohol consumption may have played a part in that case. Please report any behavior or mood changes as well as being aware of drowsiness. Be cautious when operating motor vehicles or dangerous machinery until the medication's effect on you is clear. 624.1 [facility] Note: Plan: PREMARIN 0.625 MG/GM VA CREA Refilled. Discussed follow up for annual exam 01/20, fasting. Will not need pap. Annalisa has mammo scheduled for 09/22. Reviewed past DEXA. ENTICE STYLIST documented in this encounter Nursing Notes 08/14/2007 8:45 AM CST >> KAVON LEARY 08/14/2007 8:23 am Patient presents with: Nicotine Dependence - discuss starting chantix, side effects Refill Request - discuss premarin, has been off for a while - discuss restarting again Initial BP 124/78 Ht 6' 0 (1.83m) Wt 305 lbs (138.3kg) LMP Hysterectomy Body mass index is 41.36 kg/(m^2).. BP completed using cuff size large - right arm. Kavon Leary, Court [employer] Appeals Judge documented in this encounter Plan of Treatment Not on filedocumented as of this encounter Visit Diagnoses Diagnosis Tobacco use disorder - Primary Atrophy of vulva documented in this encounter Care Teams Printmaker Relationship Specialty Start Date End Date Subha Ramirez PA-C PCP - General 02/23/02 03/11/10 [facility] [address] [place] [address] documented as of this encounter
--- OUTSIDE RECORDS SUMMARY | 2022-07-27 08:49 | XMS_ITS | Encounter Summary ---
:1960 Author Organization [facility] Address [address] [place] [address]. [place] [address] Care Team Providers Name Role Phone Subha Ramirez PA-C Primary Care Provider [phone] Reason for Visit Reason Onset Date Comments Lab Result Notice 02/19/2008 Encounter Details Date Type Department Care Team Description 02/19/2008 Telephone [facility] Lisa, Lab Result Notice Chili Nelly Augustin PA-C [address] [facility] [address] [place] [phone] [place] [address] (Wo rk) Social History Tobacco Use Types Packs/Day Years Used Date Smoking Tobacco: Every Day Cigarettes 1 20 Comments: 1/2 ppd Alcohol Use Standard Drinks/Week Comments Yes 0 (1 standard drink = 0.6 oz pure alcoho l) 2 drinks 2x week Sex Assigned at Date Recorded Not on file documented as of this encounter Miscellaneous Notes Telephone Encounter - Nelly Gonzalez - 02/19/2008 2:52 PM CDT Discussed labs with AnnalisaMaribell Cloud cbc and cmp results faxed to her kitchen worker Telephone Encounter - Josie Gallegos - 02/19/2008 2:16 PM CDT Paula Baltazar - Lab results/Nelly (show header) From Paula Baltazar Sent Feb 19, 2008 1:54 PM To P Nurse Rigo Howard Subject Lab results/Nelly Patient Annalisa Jacob [[id number]] (: 1960) Phone Entered Pt Work Pt Home [phone] Message Annalisa did receive her lab results. She didn't receive the results for glucose & electrolytes. Were her results faxed to her derm? Dr Chika Bullard from [facility]. Annalisa can be reached [phone]. DL 7-7@1:57pm documented in this encounter Plan of Treatment Not on filedocumented as of this encounter Visit Diagnoses Not on filedocumented in this encounter Care Teams Automobile Club Travel Counselor Relationship Specialty Start Date End Date Subha Ramirez PA-C PCP - General 02/23/02 03/11/10 [facility] [address] [facility] [place] [address] documented as of this encounter
--- OUTSIDE RECORDS SUMMARY | 2022-07-27 08:49 | XMS_ITS | Encounter Summary ---
:1960 Author Organization [facility] Address [address] [place] [address] Care Team Providers Name Role Phone Subha Ramirez PA-C Primary Care Provider [phone] Reason for Referral - Closed Specialty Diagnoses / Procedures Referred By Contact Refer red To Contact Diagnoses Pain in limb Backache, unspecified Subha Ramirez PA-C [facility] [address] [place] [address] Fax: Referral ID Status Reason Start Date Expiration Date Visits Requ ested Visits Authorized [id number] Closed 04/11/2006 08/14/2011 1 1 Encounter Details Date Type Department Care Team Description 04/06/2006 Orders Only [facility] James, DIAGNOSIS NOT YET DEFINED (Primary Dx); Clinic [place] ALANA Mascorro PAIN IN LIMB; [address] [facility] [place], [place] [address] [facility] [address] [place], [place] [phone] [address] Social History Tobacco Use Types Packs/Day Years Used Date Smoking Tobacco: Every Day Cigarettes 1 20 Comments: 1/2 ppd Alcohol Use Standard Drinks/Week Comments Yes 0 (1 standard drink = 0.6 oz pure alcoho l) 2 drinks 2x week Sex Assigned at Date Recorded Not on file documented as of this encounter Progress Notes Subha Ramirez - 04/11/2006 9:08 AM CDT Addended by: SUBHA RAMIREZ on: 04/11/2006 9:08:39 AM Modules accepted: Orders documented in this encounter Plan of Treatment Not on filedocumented as of this encounter Procedures Procedure Name Priority Date/Time Associated Diagnosis Comme [facility] MRI LUMBAR SPINE Routine 04/06/2006 DIAGNOSIS NOT YET Res ults for this W/O CONTRAST DEFINED procedure are in the Pain In Limb results section. Backache Nos documented in this encounter Results MRI LUMBAR SPINE (04/06/2006) Anatomical Region Laterality Modality Other Specimen (Source) Anatomical Location Collection Method / Collectio n Time Received Time / Laterality Volume 04/06/2006 Narrative This result has an attachment that is no t available. Subha Ramirez PA-C SPECIAL IMAGING STUDIES documented in this encounter Visit Diagnoses Diagnosis DIAGNOSIS NOT YET DEFINED - Primary Pain in limb Backache, unspecified documented in this encounter Care Teams Fiberglass Fabricator Relationship Specialty Start Date End Date Subha Ramirez PA-C PCP - General 02/23/02 03/11/10 [facility] [address] [place] [address] documented as of this encounter
--- OUTSIDE RECORDS SUMMARY | 2022-07-27 08:49 | XMS_ITS | Encounter Summary ---
:1960 Author Organization [facility] Address [address] [place] [address] Care Team Providers Name Role Phone Subha Ramirez PA-C Primary Care Provider [phone] Reason for Visit Reason Onset Date Comments Results 04/11/2006 results of MRI Encounter Details Date Type Department Care Team Description 04/11/2006 Telephone [facility] James, Adelaida (r esults of MRI) Clinic [place] ALANA Mascorro [address] [place], [place] [address] [facility] [address] [place], [place] [phone] [address] Social History Tobacco Use Types Packs/Day Years Used Date Smoking Tobacco: Every Day Cigarettes 1 20 Comments: 1/2 ppd Alcohol Use Standard Drinks/Week Comments Yes 0 (1 standard drink = 0.6 oz pure alcoho l) 2 drinks 2x week Sex Assigned at Date Recorded Not on file documented as of this encounter Miscellaneous Notes Telephone Encounter - Juany Zavala - 04/11/2006 4:22 PM CDT Juany Zavala, Merchandise Supervisor Talked to patient and gave below information Telephone Encounter - Subha Ramirez - 04/11/2006 3:23 PM CDT She can hold off for now, start with the ortho consult Telephone Encounter - Juany Zavala - 04/11/2006 3:18 PM CDT Juany Zavala, Merchandise Supervisor Gave Annalisa below information. She didn't finish the Pelvic MRI she only went part Way thru because it was so painful. She rescheduled To go back to [facility] on Tue to finish the Test. Should she cancel or go thru with the test? Telephone Encounter - Juany Zavala - 04/11/2006 1:37 PM CDT Juany Zavala, Merchandise Supervisor LMOM at work number for patient [employer] please notify patient lumbar MRI shows mild disc bulging at L3-4 but I am not convinced this is the cause of her pain, I would like her to see ortho in [place] and will set up the referral. A copy of the MRI from [facility] and the referral have been printed and Mailed to patient. documented in this encounter Plan of Treatment Not on filedocumented as of this encounter Visit Diagnoses Not on filedocumented in this encounter Care Teams Cleaner Window Relationship Specialty Start Date End Date Subha Ramirez PA-C PCP - General 02/23/02 03/11/10 [facility] [address] [place] [address] documented as of this encounter
--- OUTSIDE RECORDS SUMMARY | 2022-07-27 08:49 | XMS_ITS | Encounter Summary ---
:1960 Author Organization [place] Address [address] [place] [address] Care Team Providers Name Role Phone Subha Ramirez PA-C Primary Care Provider [phone] Reason for Referral - Closed Specialty Diagnoses / Procedures Referred By Contact Refer red To Contact Diagnoses Sprain and strain of other specified sites of hip and thigh [facility] Fel[facility] [address] [place], [place] [address] Referral ID Status Reason Start Date Expiration Date Visits Requ ested Visits Authorized [id number] Closed 05/30/2006 08/14/2011 1 1 Reason for Visit Reason Comments Musculoskeletal Problem left side, low back and hip (posterior to anterior) Encounter Details Date Type Department Care Team Description 05/30/2006 Office Visit Mriiam Vail & Mani Felton [facility] Orthopedic DO Rashad NEC (Primary Dx) [facility] [address] [place] [address], [address] [address] [phone] Social History Tobacco Use Types Packs/Day Years [...] - Inhaled Oxygen Concentration - - Weight 131.5 kg (290 lb) 05/30/2006 4:00 PM CDT Height 182.9 cm (6') 05/30/2006 4:00 PM CDT Body Mass Index 39.33 05/30/2006 4:00 PM CDT documented in this encounter Progress Notes Mani Felton - 06/16/2006 9:26 PM CST SUBJECTIVE: Annalisa Jacob is a 45 year old female who is seen in consultation at the request of for rt hip and low back pain aith walking or activity. Pain is described as sharp raditing into rt groin with hip or nee flexion. Becoming worse over past three months. No acute traumatic incident or injury recalled. Onset: Attributed to specific activity. Mechanism of injury: walking. Immediate symptoms: immediate pain. Mitigating Factors: rest Symptoms have been rapid, worsening since that time. Prior history of related problems: no prior problems with this area in the past. Patients past medical, surgical, social and family histories reviewed. Past medical history notable for: Obesity REVIEW OF SYSTEMS: CONSTITUTIONAL:NEGATIVE for fever, chills, change in weight INTEGUMENTARY/SKIN: NEGATIVE for worrisome rashes, moles or lesions MUSCULOSKELETAL:See HPI above NEURO: NEGATIVE for weakness, dizziness or paresthesias Ht 6' 0 (1.83m) Wt 290 lbs (131.5kg) LMP Hysterectomy EXAM: GENERAL APPEARANCE: healthy, alert and no distress GAIT: normal SKIN: no suspicious lesions or rashes NEURO: Normal strength and tone, sentation intact, reflexes normal, DTR symmetrically normal in upper extremities and DTR symmetrically normal in lower extremities PSYCH: mentation appears normal and affect normal/bright MUSCULOSKELETAL: RIGHT HIP: Palpation: Tender: right gluteus medius, right ASIS Non-tender: right greater trochanter, right iliac crest, right proximal hamstring attachment Range of Motion: Full ROM, both hips Strength: flexion: 4/5, painful, extension 5/5, abduction: 5/5, painful, adduction: 5/5, internal rotation: 5/5, external roatation: 5/5, painful Special tests: no crepitation/snapping over central inguinal region, no crepitation/snapping over greater trochanter, IT band tightness right, rectus femoris tightness right, no iliopsoas tightness, negative straigth leg raise LEFT HIP: Palpation: Tender: normal Non-tender: normal Range of Motion: Full ROM, both hips Strength: full strength Special tests: no crepitation/snapping over central inguinal region, no crepitation/snapping over greater trochanter, no IT band tightness, no rectus femoris tightness, no iliopsoas tightness, negativestraigth leg raise ASSESSMENT/PLAN: 843.8 [facility] NEC (primary encounter diagnosis) Plan: CONSULT EMI (PT & CHIRO) RT hip flexor strain. Diagnosis explained and theraputic options discussed. Start physical therapy for pain and gradual strengthening program. X-RAY INTERPRETATION: No Hip X-Rays indicated [place] UPSTREAM MARKETING MANAGER documented in this encounter Nursing Notes 05/30/2006 4:00 PM CDT >> MARIANA WILKINSON 05/30/2006 4:33 pm Patient is 45 year old female with low back and right groin pain that started over three months ago.Patient notes increased pain with walking or standing. Patient has dull ache in low back and sharp pain that feeling like it starts in her posterior hip and shoots to her anterior hip. Patient was seenby SALLY Damico at [facility] who requested that Dr. Felton see this patient for their low back/ hip problem. Mariana Wilkinson ATC documented in this encounter Plan of Treatment Not on filedocumented as of this encounter Visit Diagnoses Diagnosis Sprain and strain of other specified sit es of hip and thigh - Primary documented in this encounter Care Teams Tag Machine Operator Relationship Specialty Start Date End Date Subha Ramirez PA-C PCP - General 02/23/02 03/11/10 [facility] [address] [place] [address] documented as of this encounter
--- OUTSIDE RECORDS SUMMARY | 2022-07-27 08:49 | XMS_ITS | Encounter Summary ---
:1960 Author Organization [place] Address [address] [place] [address] Care Team Providers Name Role Phone Subha Ramirez PA-C Primary Care Provider [phone] Reason for Visit Reason Onset Date Comments Patient Request 04/16/2005 nicotrol inh Encounter Details Date Type Department Care Team Description 04/16/2005 Telephone [facility] James, Patient Re [facility] ALANA Mascorro (nicotrol inh) [address] [place] [address] [place] [address] [place], [place] [phone] [address] Social History Tobacco Use Types Packs/Day Years Used Date Smoking Tobacco: Every Day Cigarettes 1 20 Alcohol Use Standard Drinks/Week Comments Yes 0 (1 standard drink = 0.6 oz pure alcoho l) 2 drinks 2x week Sex Assigned at Date Recorded Not on file documented as of this encounter Miscellaneous Notes Telephone Encounter - Juany Zavala - 04/21/2005 9:20 AM CDT Juany Zavala, Deputy [employer] Marshal Called patient to let her know she can pickup her Rx at the pharmacy. Telephone Encounter - Vicki Salinas - 04/20/2005 1:22 PM CDT LMOM for patient to call back eugenio. VICKI SALINAS CMA Telephone Encounter - Subha Ramirez - 04/16/2005 9:43 PM CDT rx done Telephone Encounter - Jerod Schilling - 04/16/2005 1:03 PM CDT pt calling, would like to try and stop smoking. Had discussed at previous appts. Has heard of the nicotrol inhaler and would like rx for this. Jerod Schilling RN documented in this encounter Plan of Treatment Not on filedocumented as of this encounter Visit Diagnoses Diagnosis Tobacco use disorder - Primary documented in this encounter Care Teams Template Cutter Relationship Specialty Start Date End Date Subha Ramirez PA-C PCP - General 02/23/02 03/11/10 [facility] [address] [place] [address] documented as of this encounter
--- OUTSIDE RECORDS SUMMARY | 2022-07-27 08:49 | XMS_ITS | Encounter Summary ---
:1960 Author Organization [place] Address [address] [place] [address]. [place] [address] Care Team Providers Name Role Phone Subha Ramirez PA-C Primary Care Provider [phone] Reason for Referral Office Workup No CT/MRI - Closed Specialty Diagnoses / Procedures Referred By Contact Refer red To Contact Diagnoses Heel pain Nelly Gonzalez [facility] AURY Augustin PA-C [address] [address] [place] [address] [place] [address] Referral ID Status Reason Start Date Expiration Date Visits Requ ested Visits Authorized [id number] Closed 02/05/2008 08/14/2011 1 1 Reason for Visit Reason Comments Knee Pain left knee pain, at time in h er right knee too, pain also goes to her left heel, pt has bump t here x ongoing since high school, pt has fallen many time on her knees over the years Hair/Scalp Problem pt is losing her hair x on g oing for 15-20 years Encounter Details Date Type Department Care Team Description 02/05/2008 Office Visit [facility] Lisa Knee P ain (Primary Dx); [facility] [place] Nelly Augustin PA-C Heel Pain; [address] Medication Side Effects; [place], [place] Mixed Hyperli pidemia [phone] Social History Tobacco Use Types Packs/Day Years [...] Sign Reading Time Taken Comments Blood Pressure 134/86 02/05/2008 11:00 AM CDT Pulse 92 02/05/2008 11:00 AM CDT Temperature 36.8 ??C (98.3 ??F) 02/05/2008 11:00 AM CDT Respiratory Rate - - Oxygen Saturation 99% 02/05/2008 11:00 AM CDT Inhaled Oxygen Concentration - - Weight 139.3 kg (307 lb) 02/05/2008 11:00 AM CDT Height 182.9 cm (6') 02/05/2008 11:00 AM CDT Body Mass Index 41.64 02/05/2008 11:00 AM CDT documented in this encounter Progress Notes Nelly Gonzalez - 02/05/2008 1:40 PM CDT SUBJECTIVE: Annalisa Jacob is a 47 year old female who comes today for evaluation of left knee pain . She has had long standing issues with knee pain. Injured the left knee years ago and since then has had off andon again pain. Also has a histroy of OA and is obese. Stated she has had some heel pain on left footand states she might have been walking differently which might account for why her knee pain flared again. She has been using a brace but hasn't helped. OBJECTIVE: Vital signs as noted above. Appearance: in no apparent distress. Knee exam: because of patients size was unable to do a good knee exam but has antalgic gait, soft tissue tenderness over lateral joint line, effusion, normal ipsilateral hip exam, normal ipsilateral foot and ankle exam, normal contralateral knee exam. Left Foot exam: Area on heel where shoe strap would go that looks swollen and slightly erythematous,otherwise normal X-ray: not indicated. ASSESSMENT: Knee rule out meniscal injury Heel pain PLAN:referal for podiatry for heel pain. Knee:rest the injured area as much as practical, apply ice packs, elevate the injured limb, prescription for NSAID given. Follow-up in 2 weeks. If pain still acute will refer to ortho See orders in [facility] documented in this encounter Nursing Notes 02/05/2008 11:00 AM CDT >> NEAL JOHANSEN Mon Feb 05, 2008 11:14 AM Patient presents with: Knee Pain - left knee pain, at time in her right knee too, pain also goes to her left heel, pt has bump there x ongoing since high school, pt has fallen many time on her knees over the years Hair/Scalp Problem - pt is losing her hair x on going for 15-20 years Annalisa L Jacob presents for as above. Initial BP 134/86 Pulse 92 Temp (Src) 98.3 ??F (36.8 ??C) (Oral) Ht 6' (1.829 m) Wt 307 lb (139.254 kg) SpO2 99% LMP Hysterectomy Body mass index is 41.64 kg/(m^2).. BP completed using cuff size: large Neal Johansen DIRECTOR COMPLIANCE documented in this encounter Plan of Treatment Not on filedocumented as of this encounter Visit Diagnoses Diagnosis Knee pain - Primary Pain in joint, lower leg Heel pain Pain in limb Medication side effects Unspecified adverse effect of unspecifie d drug, medicinal and biological substance Mixed hyperlipidemia documented in this encounter Care Teams Firer Watertender Relationship Specialty Start Date End Date Subha Ramirez PA-C PCP - General 02/23/02 03/11/10 [facility] [address] [place] [address] documented as of this encounter
--- OUTSIDE RECORDS SUMMARY | 2022-07-27 08:49 | XMS_ITS | Encounter Summary ---
:1960 Author Organization [place] Address [address] [place] [address] Care Team Providers Name Role Phone Subha Ramirez PA-C Primary Care Provider [phone] Encounter Details Date Type Department Care Team Description 02/08/2008 Orders Only [facility] l Pain; [facility] Medication Side Effects; [address] [facility] [place] [address] Social History Tobacco Use [...] Comme nts CL AFF CBC WITH Routine 02/08/2008 8:12 Heel Pain Results for this PLATELETS, DIFF AM CDT Medication Side procedure are in Effects the results section. HCL COMPREHENSIVE Routine 02/08/2008 8:12 Heel Pain Results for this METABOLIC PANEL AM CDT Medication Side procedure are in Effects the results section. CL AFF A.M.A. LIPID Routine 02/08/2008 8:12 Mixed Hyperlipidem ia Results for this PANEL AM CDT procedure are i n the results section. documented in this encounter Results (ABNORMAL) A.M.A. LIPID PANEL (02/08/2008 8:12 AM CDT) athologist Signature Cholesterol 158 0 - 200 [facility] mg/dL CLINIC LAB Comment: LDL Cholesterol is the primary guide to therapy: LDL-cholesterol goal in high risk patients is <100 mg/dL and in very high risk patients is <70 mg/dL. The NCEP recommends further evaluation of: patients with cholesterol <200 mg/dL if additional risk factors are present, cholesterol >240 mg/dL, triglycerides >150 mg/dL, or HDL <40 mg/dL. Triglycerides 90 0 - 150 mg/dL [facility] HDL Cholesterol 39 (L) 50 - 110 mg/dL [facility] LDL Cholesterol Calculated 101 0 - 129 mg/dL [facility] Comment: LDL Cholesterol is the primary guide to therapy: LDL-cholesterol goal in high risk patients is <100 mg/dL and in very high risk patients is <70 mg/dL. VLDL-Cholesterol 18 0 - 30 mg/dL [facility] Cholesterol/HDL Ratio 4.1 0.0 - 5.0 [facility] Specimen Anatomical Collection Method Collection Time Receive d Time (Source) Location / / Volume Laterality 02/08/2008 8:12 AM 8 8:13 CDT AM CDT Nelly Gonzalez PA-C LABORATORY Performing Organization Address City/State/ZIP Code Phon e Number [address] [address] [facility] (ABNORMAL) A.M.A. COMPREHENSIVE MET.PANEL (02/08/2008 8:12 AM CDT) [facility] Signature Sodium 143 133 - 144 [place] mmol/L [facility] Potassium 4.2 3.4 - 5.3 [place] mmol/L [facility] Chloride 110 (H) 94 - 109 [place] mmol/L [facility] Carbon Dioxide 24 20 - 32 [place] mmol/L [facility] Anion Gap 9 6 - 17 [place] mmol/L [facility] Glucose 94 60 - 99 [place] mg/dL [facility] Urea Nitrogen 9 5 - 24 [place] mg/dL [facility] Creatinine 0.68 0.52 - [facility] 1.04 mg/dL [facility] Comment: New IDMS-traceable calibration beginning 12/14/07 GFR Estimate >90 >60 mL/min/1.7m2 [place] E AGAN [facility] GFR Estimate If Black >90 >60 mL/min/1.7m2 [facility] Calcium 9.4 8.5 - 10.4 mg/dL [facility] Bilirubin Total 0.5 0.2 - 1.3 mg/dL [facility] Albumin 4.1 3.3 - 4.6 g/dL [facility] Protein Total 7.0 6.8 - 8.8 g/dL [place] EA ULISES [facility] Comment: As of 07, reference range reflects plasma specimen type. Alkaline Phosphatase 78 40 - 150 U/L [facility] CLINIC LAB ALT 10 0 - 50 U/L [facility] CLIN IC LAB AST 17 0 - 45 U/L [facility] CLIN IC LAB Specimen Anatomical Collection Method Collection Time Receive d Time (Source) Location / / Volume Laterality 02/08/2008 8:12 AM 8 8:13 CDT AM CDT Nelly Gonzalez PA-C LABORATORY Performing Organization Address City/State/ZIP Code Phon e Number [address] [address] [facility] (ABNORMAL) CBC WITH PLATELETS, DIFF (02/08/2008 8:12 AM CDT) [facility] gist Method Time Signature WBC 8.3 4.0 - [facility] 11.0 [place] 10e9/L [facility] RBC Count 4.61 3.8 - 5.2 [place] 10e12/L [facility] Hemoglobin 15.0 11.7 - [place] 15.7 g/dL [facility] Hematocrit 42.9 35.0 - [place] 47.0 % [facility] MCV 93 78 - 100 [place] fl [facility] MCH 32.5 26.5 - [facility] 33.0 pg [facility] MCHC 35.0 31.5 - [place] 36.5 g/dL [facility] RDW 13.9 10.0 - [place] 15.0 % [facility] Platelet Count 457 (H) 150 - 450 [place] 10e9/L [facility] Diff Method Automated [place] Method [facility] % Lymphocytes 39 20 - 48 % [facility] % Monocytes 5 0 - 12 % [facility] % Granulocytes 56 40 - 75 % [facility] Absolute 3.3 0.8 - 5.3 [place] Lymphocytes 10e9/L [facility] Absolute 0.4 0.0 - 1.3 [place] Monocytes 10e9/L [facility] Absolute 4.6 1.6 - 8.3 [place] Granulocytes 10e9/L [facility] Specimen Anatomical Collection Method Collection Time Receive d Time (Source) Location / / Volume Laterality 02/08/2008 8:12 AM 8 8:13 CDT AM CDT Nelly Gonzalez PA-C LABORATORY Performing Organization Address City/State/ZIP Code Phon e Number [facility] [address] [place] [address] [facility] documented in this encounter Visit Diagnoses Diagnosis Heel pain Pain in limb Medication side effects Unspecified adverse effect of unspecifie d drug, medicinal and biological substance Mixed hyperlipidemia documented in this encounter Care Teams Solderer Barrel Ribs Relationship Specialty Start Date End Date Subha Ramirez PA-C PCP - General 02/23/02 03/11/10 [facility] [address] [place] [address] documented as of this encounter
--- OUTSIDE RECORDS SUMMARY | 2022-07-27 08:49 | XMS_ITS | Encounter Summary ---
:1960 Author Organization [place] Address [address] [place] [address] Care Team Providers Name Role Phone Subha Ramirez PA-C Primary Care Provider [phone] Reason for Visit Reason Comments Radiology Visit Encounter Details Date Type Department Care Team Description 09/12/2007 Orders Only [facility] SCR EENING MAMM-MAILG NEOPL [place] NEC (Primary Dx) [address] [place] [address] Social History Tobacco Use Types [...] Name Priority Date/Time Associated Diagnosis Comme nts MAMMOGRAM, Routine 09/12/2007 Screening Mamm-Mailg Result s for this SCREENING BILATERAL Neopl Nec procedur e are in the results section . documented in this encounter Results MAMMOGRAM, SCREENING (09/12/2007) P athologist Signature MAMMOGRAM Anatomical Region Laterality Modality Other Impressions 09/12/2007 RADIOLOGIST'S INTERPRETATION: Breast parenchyma: ??fatty/mild densitie s IMAGING IMPRESSION: (CATEGORY-1) NEGATIVE Angela Cerrato M.D. D/T: ?? Subha Ramirez PA-C SPECIAL IMAGING STUDIES documented in this encounter Visit Diagnoses Diagnosis Other screening mammogram - Primary documented in this encounter Care Teams Special Education Instructor Relationship Specialty Start Date End Date Subha Ramirez PA-C PCP - General 02/23/02 03/11/10 [facility] [address] [place] [phone] documented as of this encounter
--- OUTSIDE RECORDS SUMMARY | 2022-07-27 08:49 | XMS_ITS | Encounter Summary ---
:1960 Author Organization [place] Address [address] [place] [address] Care Team Providers Name Role Phone Subha Ramirez PA-C Primary Care Provider [phone] Reason for Visit Reason Comments Radiology Visit Encounter Details Date Type Department Care Team Description 04/12/2006 Orders Only [facility] ABS ENCE OF MENSTRUATION [place] (Primary Dx) [address] [place] [address] Social History Tobacco Use Types Packs/Day Years Used Date Smoking Tobacco: Every Day Cigarettes 1 20 Comments: 1/2 ppd Alcohol Use Standard Drinks/Week Comments Yes 0 (1 standard drink = 0.6 oz pure alcoho l) 2 drinks 2x week Sex Assigned at Date Recorded Not on file documented as of this encounter Progress Notes Nikole Gale - 04/13/2006 8:54 AM CDT Addended by: NIKOLE GALE on: 04/13/2006 8:54:39 AM Modules accepted: Orders Nikole Gale - 04/12/2006 4:45 PM CDT Addended by: NIKOLE GALE on: 04/12/2006 4:45:35 PM Modules accepted: Orders documented in this encounter Plan of Treatment Not on filedocumented as of this encounter Procedures Procedure Name Priority Date/Time Associated Diagnosis Comme nts C DEXA, BONE Routine 04/12/2006 8:48 AM Absence Of Results f or this DENSITY, AXIAL SKEL CDT Menstruation procedur e are in the results section. documented in this encounter Results DEXA, BONE DENSITY, AXIAL SKEL (04/12/2006 8:48 AM CDT) Anatomical Region Laterality Modality Bone Mineral Density Impressions 04/12/2006 8:48 AM CDT BONE DENSITOMETRY [facility] April 12, 2006 PATIENT: ??Annalisa Jacob CHART: [id number] : ??1960 AGE: ??45 year old SEX: ??female REFERRING PHYSICIAN: ??Subha Gonzalez, ?? PROCEDURE: ??Bone density scanning was p erformed using DEXA technology performed on a Good Photo Scanner. ??Reporting is completed in the form of a T-score. ??Th e T-score represents the standard deviation from peak bone mass b ased on a young healthy adult. Language Arts Teacher performing scan: ??Nikole Wilde on REFERENCE T-SCORES: ? Normal ? Greater than -1.0 ? Osteopenia ?-1.0 to -2.5 ? Osteoporosis ?? Less than -2.5 ? INDICATIONS: ??Surgical menopause age 38 , Tobacco abuse CURRENT TREATMENT: ??None listed FINDINGS: ? Lumbar Spine L1-L4: ? ?T-score 2.3 ? Left Femoral Neck: ?? T-score 1.7 ? Right Femoral Neck: ? ?T-score 1.2 ? Comparison is performed to previous DEXA performed on a [facility] Excell on 12/15/2000. Electronically filed by Nikole Gale ??04/13/2006 ??8:48 AM In the interim, allowing for standardiza tion calculations, there is suggestion of a possible trend toward s worsening of the lumbar spine, and no significant change of the femoral neck. IMPRESSION: Normal bone mineral density study Degenerative lumbar changes. Recommendations include ensuring adequat e Calcium (1500 mg/d) and Vitamin D (400-800 IU/d). Follow up can be considered within [...] documented in this encounter Visit Diagnoses Diagnosis Absence of menstruation - Primary documented in this encounter Care Teams Labor Conciliator Relationship Specialty Start Date End Date Subha Ramirez PA-C PCP - General 02/23/02 03/11/10 [facility] [address] [place] [phone] documented as of this encounter
--- OUTSIDE RECORDS SUMMARY | 2022-07-27 08:49 | XMS_ITS | Encounter Summary ---
:1960 Author Organization [facility] Address [address] [place] [address] Care Team Providers Name Role Phone Subha Ramirez PA-C Primary Care Provider [phone] Reason for Visit Reason Comments Physical with pap and fasting labs Encounter Details Date Type Department Care Team Description 02/11/2006 Office Visit [facility] James, ROUTINE VA DICAL EXAM (Primary Dx); [place]; [address] [facility] [place]OS; [place] [address] [place]; [address] [place], [place] [employer]; [phone] [address] BENIGN NEOPLASM SKIN NEC Social History Tobacco Use Types Packs/Day Years [...] Reading Time Taken Comments Blood Pressure 132/84 02/11/2006 8:15 AM CDT Pulse - - Temperature - - Respiratory Rate - - Oxygen Saturation - - Inhaled Oxygen Concentration - - Weight 134.7 kg (297 lb) 02/11/2006 8:15 AM CDT Height 181.6 cm (5' 11.5) 02/11/2006 8:15 AM CDT Body Mass Index 40.85 02/11/2006 8:15 AM CDT documented in this encounter Progress Notes Subha Ramirez - 02/11/2006 8:51 AM CDT SUBJECTIVE: CC: Winston Jacob is a 45 year old female who presents for cpx and pap HPI: 1- lump on rt side of back, noted this 5 years ago, had mammo and ultrasound and was normal, seems bigger now and tender 2- hx of plantar fasciitis, starting up again in rt foot for 4 months, pain with prolonged walking, better with stretching 3- intermittent deep ache down front of left leg for few years, starts in low back and radiates downto knee or ankle, worse after prolonged activity, now hip will give out, has occurred for last 4 months, worse with big strides, no numbness or tingling, no bowel or bladder control problems 4- review BP and weight HISTORIES: Patient Active Problem List Diagnoses Code ??? TOBACCO USE DISORDER 305.1 ??? OBESITY NOS 278.00 Past Medical History Diagnosis Date ??? OBESITY NOS ??? TOBACCO USE DISORDER Past Surgical History Procedure Date ??? 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 Social History Main Topics ??? Tobacco Use: Yes -- 1.0 packs/day for 20 years 1/2 ppd ??? Alcohol Use: Yes 2 drinks 2x week ??? Drug Use: No ??? Sexually Active: Yes -- Male partners Other Topics Concern ??? Caffeine Yes 1 lg coffee, occas soda ??? Diet No dietary calcium daily, low F/V ??? Exercise Yes not regular ??? Seat Belt Yes ??? Self Exams Yes Social History Narrative ??? No narrative on file Family History Problem Relation ??? Cancer Maternal Grandfather at 50's-60's YOA, stomach [place] ??? Neurological Maternal Grandmother at 80's, had alzheimer's ??? C.A.D. Paternal Grandmother late 30's of [place] ??? Cancer Paternal Grandfather 60's of lung [place] ??? Family History Negative Mother ??? Respiratory Father sarcoidosis ??? Obesity Sister ??? Obesity Brother HEALTH MAINTENANCE: no abn paps No health maintenance topics applied. REVIEW OF OUTSIDE RECORDS: NO ROS: CONSTITUTIONAL:POS for weight ups and downs INTEGUMENTARY/SKIN: NEGATIVE for worrisome rashes, moles or lesions POs for lump noted above ENT/MOUTH: NEGATIVE for ear, mouth and throat problems RESP:NEGATIVE for significant cough or SOB and POS for shortness of breath with acitivity BREAST: NEGATIVE for masses, tenderness or discharge CV: NEGATIVE for chest pain, palpitations or peripheral edema GI: NEGATIVE for nausea, abdominal pain, heartburn, or change in bowel habits : no menses, ERIKA BSO, no symptoms except vaginal dryness and irritation MUSCULOSKELETAL: POS as above NEURO: NEGATIVE for weakness, dizziness or paresthesias BP 132/84 Ht 5' 11.5 (1.82m) Wt 297 lbs (134.7kg) LMP Hysterectomy EXAM: GENERAL APPEARANCE: healthy, alert and no distress EYES: Eyes grossly normal to inspection HENT: ear canals and TM's normal and [...] or masses and bowel sounds normal (female): vaginal atrophy, normal post-hysterectomy/BSO exam without masses or discharge MS: she locates her hip pain at the anterior left hip/groin area, though nontender to palp; extremities normal- no gross deformities noted SKIN: no suspicious lesions or rashes and no rt axillary masses or nodules, no breast lumps noted NEURO: Normal strength and tone, , mentation intact and speech normal PSYCH: mentation appears normal. and affect normal/bright ASSESSMENT/PLAN V70.0 ROUTINE MEDICAL EXAM (primary encounter diagnosis) Note: Plan: A THIN LAYER PAP SCREEN, CBC WITH PLATELETS, A.M.A. LIPID PANEL, TSH W/FREE T4 REFLEX, A.M.A. COMPREHENSIVE MET.PANEL, HEMOGLOBIN A1C, UA MICRO IF POSITIVE, MAMMOGRAM, SCREENING Encouraged regular self breast exams, physical activity and low-fat diet with daily calcium intake.Reviewed past labs. Discussed pap screening and she doesn't need paps after this, though advised pelvic exam if having any vaginal or pelvic symptoms Mammo ordered. Will try premarin cream for vaginal atrophy, discussed benefits of oral estrogen and will consider this after DEXA done. 729.5 PAIN IN LIMB Note: left leg Plan: MRI LUMBAR SPINE, MRI PELVIS, CBC WITH PLATELETS, A.M.A. COMPREHENSIVE MET.PANEL Due to duration and worsening of symptoms, will MRI; if normal will try PT 724.5 BACKACHE NOS Note: low back Plan: MRI LUMBAR SPINE, MRI PELVIS, CBC WITH PLATELETS, A.M.A. COMPREHENSIVE MET.PANEL As above 278.00 OBESITY NOS Note: Plan: CBC WITH PLATELETS, TSH W/FREE T4 REFLEX, A.M.A. COMPREHENSIVE MET.PANEL, HEMOGLOBIN A1C Reviewed weight and BP, discussed diet and exercise changes, encouraged smoking cessation I have discussed with patient the risks, benefits, medications, treatment options and modalities. I have instructed the patient to call or schedule a follow-up appointment if any problems or failureto improve. documented in this encounter Nursing Notes 02/11/2006 8:15 AM CDT >> YISEL JOHNSON 02/11/2006 8:14 am Patient presents with: Physical - with pap and fasting labs Last PAP:02/04/05 Last Td: Last MAMMO:01/07/05 Last DEXA:02/12/04 SBE:done Pt with lump in R breast Pt also c/o plantar fascitis and L leg pain Initial BP 132/84 Ht 5' 11.5 (1.82m) Wt 297 lbs (134.7kg) LMP Hysterectomy Body mass index is40.85 kg/(m^2).. BP completed using cuff size: large Yisel Johnson, [employer]ER documented in this encounter Plan of Treatment Not on filedocumented as of this encounter Procedures Procedure Name Priority Date/Time Associated Comments Diagnosis HC ULTRASOUND Routine 02/16/2006 2:17 PM Benign neoplasm of Re sults for this BREAST(S) (UNILATERAL CDT other specified pro cedure are in OR BILATERAL), REAL sites of skin the res ults TIME W IMAGE section. HCL UA MICRO IF Routine 02/11/2006 9:27 AM Routine Medical Res ults for this POSITIVE CDT Exam procedure are i n the results section. CL AFF MICRO Routine 02/11/2006 9:27 AM Routine Medical Result s for this EXAM-URINE CDT Exam procedure are in Backache Nos the results section. CL AFF CBC WITH Routine 02/11/2006 9:26 AM Obesity Nos Results for this PLATELETS CDT Routine Medical procedure ar e in Exam the results Pain In Limb section. Backache Nos HCL COMPREHENSIVE Routine 02/11/2006 9:26 AM Routine Medical R esults for this METABOLIC PANEL CDT Exam procedure are in Obesity Nos the results Pain In Limb section. Backache Nos HCL TSH W/FREE T4 Routine 02/11/2006 9:26 AM Routine Medical R esults for this REFLEX CDT Exam procedure are in Obesity Nos the results section. HCL GLYCATED Routine 02/11/2006 9:26 AM Routine Medical Result s for this HEMOGLOBIN CDT Exam procedure are in Obesity Nos the results section. CL AFF A.M.A. LIPID Routine 02/11/2006 9:26 AM Routine Medical Results for this PANEL CDT Exam procedure are i n the results section. HCL PAP THIN LAYER Routine 02/11/2006 12:00 Routine Medical Re sults for this SCREEN AM CDT Exam procedure are i n the results section. documented in this encounter Results SONO BREAST (02/16/2006 2:17 PM CDT) Anatomical Region Laterality Modality Other Specimen (Source) Anatomical Collection Method Collection Time Re ceived Time Location / / Volume Laterality 02/16/2006 2:17 PM CDT Impressions 02/17/2006 2:35 PM CDT BREAST ULTRASOUND, RIGHT ?02/16/2006 CLINICAL HISTORY: ??Right posterior axil ricardo lump. BREAST SYMPTOMS: ??Lump, right. FINDINGS: ??No sonographic abnormality can be identified in the posterior right axilla in the region of the palpable lump. ?? Mammography was not ordered and not perf ormed because this portion of the axilla would probably not be include d on a mammogram. ??If symptoms persist or worsen or there is c ontinued clinical concern consider CT or MRI for further evaluatio n. IMPRESSION: CATEGORY 1 Negative. Subha Ramirez PA-C SPECIAL IMAGING STUDIES (ABNORMAL) MICRO EXAM-URINE (02/11/2006 9:27 AM CDT) [facility] Method Time Signature WBC Urine O - 2 0 - 2 [place] /HPF [facility] RBC Urine O - 2 0 - 2 [place] /HPF [facility] Squamous EPI Moderate (A) FEW /LPF [facility] Bacteria Urine Few (A) NEG /HPF [facility] Mucous Urine Present (A) NEG /LPF [facility] Specimen Anatomical Collection Method Collection Time Receive d Time (Source) Location / / Volume Laterality 02/11/2006 9:27 AM 200 6 9:29 CDT AM CDT Subha Ramirez PA-C LABORATORY Performing Organization Address City/State/ZIP Code Phon e Number [facility] [address] [place] [address] [facility] (ABNORMAL) UA MICRO IF POSITIVE (02/11/2006 9:27 AM CDT) [facility] Method Time Signature Color Urine Yellow [facility] Appearance Urine Clear [facility] Glucose Urine Negative NEG mg/dL [facility] Bilirubin Urine Negative NEG [facility] Ketones Urine Trace (A) NEG mg/dL [facility] Specific [place] 1.025 1.003 - [place] Urine 1.035 [facility] Blood Urine Small (A) NEG [facility] pH Urine 5.0 5.0 - 7.0 [place] pH [facility] Protein Albumin Negative NEG mg/dL [place] Urine [facility] Urobilinogen 0.2 0.2 - 1.0 [place] Urine EU/dL [facility] Nitrite Urine Negative NEG [facility] Leukocyte Negative NEG [place] Esterase Urine [facility] Source Midstream [place] Urine [facility] Specimen Anatomical Collection Method Collection Time Receive d Time (Source) Location / / Volume Laterality 02/11/2006 9:27 AM 6 9:29 CDT AM CDT Subha Ramirez PA-C LABORATORY Performing Organization Address City/State/ZIP Code Phon e Number [facility] [address] [place] [address] [facility] HEMOGLOBIN A1C (02/11/2006 9:26 AM CDT) athologist Signature Hemoglobin A1C 5.9 4.3 - 6.0 [facility] Specimen Anatomical Collection Method Collection Time Receive d Time (Source) Location / / Volume Laterality 02/11/2006 9:26 AM 6 9:28 CDT AM CDT Subha Ramirez PA-C LABORATORY Performing Organization Address City/State/ZIP Code Phon e Number [facility] [address] [place] [address] [facility] A.M.A. COMPREHENSIVE MET.PANEL (02/11/2006 9:26 AM CDT) athologist Signature Sodium 141 133 - 144 [place] [facility] mmol/L [facility] LAB Potassium 4.5 3.4 - 5.3 [place] [facility] mmol/L [facility] Chloride 102 94 - 109 [place] [facility] mmol/L [facility] Carbon Dioxide 28 20 - 32 [place] mmol/L [facility] Anion Gap 11 6 - 17 [place] mmol/L [facility] Glucose 91 60 - 110 [place] mg/dL [facility] Urea Nitrogen 10 5 - 24 [place] mg/dL [facility] Creatinine 0.80 0.60 - [place] [facility] 1.30 mg/dL [facility] GFR Estimate 82 >60 [place] [facility] mL/min/1.7 [facility] LAB m2 GFR Estimate If >90 >60 [facility] Black mL/min/1.7 CLINIC LAB m2 Calcium 9.3 8.5 - 10.4 [facility] mg/dL CL[facility] LAB Bilirubin Total 0.4 0.2 - 1.3 [facility] mg/dL [facility] Albumin 4.6 3.3 - 4.6 [facility] g/dL [facility] Protein Total 8.1 6.0 - 8.2 [facility] g/dL [facility] Alkaline 87 40 - 150 [facility] Phosphatase U/L CLINIC LAB ALT 27 0 - 50 U/L [facility] AST 33 0 - 45 U/L [facility] Specimen Anatomical Collection Method Collection Time Receive d Time (Source) Location / / Volume Laterality 02/11/2006 9:26 AM 6 9:28 CDT AM CDT Subha Ramirez PA-C LABORATORY Performing Organization Address City/[facility]/ZIP Code Phon e Number [facility] [address] [place] [address] [facility] TSH W/FREE T4 REFLEX (02/11/2006 9:26 AM CDT) athologist Signature TSH 1.38 0.4 - 5.0 [facility] mU/L [facility] Specimen Anatomical Collection Method Collection Time Receive d Time (Source) Location / / Volume Laterality 02/11/2006 9:26 AM 6 9:28 CDT AM CDT Subha Ramirez PA-C LABORATORY Performing Organization Address City/State/ZIP Code Phon e Number [facility] [address] [place] [address] [facility] A.M.A. LIPID PANEL (02/11/2006 9:26 AM CDT) P athologist Signature Cholesterol 173 0 - 200 [facility] mg/dL CLINIC LAB Comment: LDL Cholesterol is the primary guide to therapy: LDL-cholesterol goal in high risk patients is <100 mg/dL and in very high risk patients is <70 mg/dL. The NCEP recommends further evaluation of: patients with cholesterol <200 mg/dL if additional risk factors are present, cholesterol >240 mg/dL, triglycerides >150 mg/dL, or HDL <40 mg/dL. Triglycerides 77 0 - 150 mg/dL [facility] HDL Cholesterol 54 50 - 110 mg/dL [facility] LDL Cholesterol Calculated 104 0 - 129 mg/dL [facility] Comment: LDL Cholesterol is the primary guide to therapy: LDL-cholesterol goal in high risk patients is <100 mg/dL and in very high risk patients is <70 mg/dL. VLDL-Cholesterol 15 0 - 30 mg/dL [facility] Cholesterol/HDL Ratio 3.2 0.0 - 5.0 [facility] Specimen Anatomical Collection Method Collection Time Receive d Time (Source) Location / / Volume Laterality 02/11/2006 9:26 AM 6 9:28 CDT AM CDT Wayne Chang PA-C LABORATORY Performing Organization Address City/State/ZIP Code Phon e Number [address] [address] [facility] (ABNORMAL) CBC WITH PLATELETS (02/11/2006 9:26 AM CDT) Analysis Performed At Patho logist Time Signature WBC 8.7 4.0 - 11.0 [place] 10e9/L [facility] RBC Count 5.33 (H) 3.8 - 5.2 [place] 10e12/L [facility] Hemoglobin 17.0 (H) 11.7 - [facility] 15.7 g/dL [facility] Hematocrit 49.0 (H) 35.0 - [facility] 47.0 % [facility] MCV 92 78 - 100 [facility] MCH 31.9 26.5 - [facility] 33.0 pg [facility] MCHC 34.7 32.0 - [place] 36.0 g/dL [facility] RDW 13.2 10.0 - [facility] 15.0 % [facility] Platelet Count 329 150 - 450 [place] 10e9/L [facility] Specimen Anatomical Collection Method Collection Time Receive d Time (Source) Location / / Volume Laterality 02/11/2006 9:26 AM 9:28 CDT AM CDT Wayne Chang PA-C LABORATORY Performing Organization Address City/[facility]/ZIP Code Phon e Number [facility] [address] [place] [address] [facility] A THIN LAYER PAP SCREEN (02/11/2006 12:00 AM CDT) Component Value Ref Test Analysis Performed At [facility] Range Method Time Signature PAP NIL COPATH Copath Report COPATH Patient Name: WINSTON JACOB MR#: [id number] Specimen #: [id number] Collected: 02/11/2006 Received: 02/14/2006 Reported: 02/14/2006 12:16 Ordering Phy(s): SUBHA RAMIREZ SPECIMEN/STAIN PROCESS: Pap thin layer prep screening ([facility]) ? Pap-Cyto x 1, Reflex HPV x 1 SOURCE: Cervical, endocervical ---- Pap thin layer prep screening ([facility]) SPECIMEN ADEQUACY: Satisfactory for evaluation. -Transformation zone component absent. CYTOLOGIC INTERPRETATION: Negative for Intraepithelial Lesion or Malignancy Electronically signed out by: JOHN Hamilton (ASCP) Processed and screened at [facility] CLINICAL HISTORY: Partial Hysterectomy, Previous normal pap Date of Last Pap: 02/04/05, TESTING LAB LOCATION: [address] ??[phone] COLLECTION SITE: Client: ??[facility] Location: [facility] (R) Specimen (Source) Anatomical Collection Method Collection Time Re ceived Time Location / / Volume Laterality 02/11/2006 02/14/2006 8:50 AM CDT Subha Ramirez PA-C LABORATORY Performing Organization Address City/State/ZIP Code Phon e Number [place] documented in this encounter Visit Diagnoses Diagnosis Routine general medical examination at a health care facility - Primary Pain in limb Backache, unspecified Obesity, unspecified Atrophy of vulva Benign neoplasm of other specified sites of skin documented in this encounter Care Teams Property Consultant Relationship Specialty Start Date End Date Subha Ramirez PA-C PCP - General 02/23/02 03/11/10 [facility] [address] [place] [id number] documented as of this encounter
--- OUTSIDE RECORDS SUMMARY | 2022-07-27 08:49 | XMS_ITS | Encounter Summary ---
:1960 Author Organization [facility] Address [address] [place] [address]. [place] [address] Care Team Providers Name Role Phone Subha Ramirez PA-C Primary Care Provider [phone] Encounter Details Date Type Department Care Team Description 02/05/2008 Telephone [facility] Nelly Gonzalez [place] ALANA Augustin [id number] [place] [phone] [place] [address] (Wo rk) Social History Tobacco [...] on filedocumented in this encounter Care Teams Electric Melt Operator Relationship Specialty Start Date End Date Subha Ramirez PA-C PCP - General 02/23/02 03/11/10 [facility] [address] [place] [address] documented as of this encounter
--- OUTSIDE RECORDS SUMMARY | 2022-07-27 08:50 | XMS_ITS | Encounter Summary ---
:1960 Author Organization [facility] Address [address] [place] [address] Care Team Providers Name Role Phone Subha Ramirez PA-C Primary Care Provider [phone] Reason for Visit Reason Comments Vaginal Problem vaginal itching and dryness Encounter Details Date Type Department Care Team Description [facility] [place] [facility] Dx[facility] [address] [place] [phone] [phone] Social History Tobacco Use Types Packs/Day Years Used Date Smoking Tobacco: Every Day Cigarettes 1 20 Alcohol Use Standard Drinks/Week Comments Yes 0 (1 standard drink = 0.6 oz pure alcoho l) 2x week Sex Assigned at Date Recorded Not on file documented as of this encounter Last Filed Vital Signs Vital Sign Reading Time Taken Comments Blood Pressure 122/90 12/13/2003 2:00 PM CDT Pulse 88 12/13/2003 2:00 PM CDT Temperature 36.7 ??C (98.1 ??F) 12/13/2003 2:00 PM CDT Respiratory Rate 20 12/13/2003 2:00 PM CDT Oxygen Saturation - - Inhaled Oxygen Concentration - - Weight - - Height - - Body Mass Index - - documented in this encounter Progress Notes 12/13/2003 2:00 PM CDT Annalisa Jacob presents to clinic today for evaluation of vaginal itching and dryness x 2 weeks. Den ies any abnormal discharge or odor. No pelvic pain. Pt is . S/P hyst and BSO. Admits using OTC feminine products (vagisil and wash/wipes) recently. OBJECTIVE: BP 122/90 Pulse 88 Temp (S rc) 98.1 (Oral) Resp 20 LMP Hysterectomy GENERAL: Very pleasant, comfortable and generally well appearing. ABDOMEN: Soft, non-tender, non-distended. Positive normal bowel sounds. No HSM or windy s. No suprapubic tenderness. No CVA tenderness. VENEER DRIER: Normal external female genitalia. No lesions . Normal very slightly atrophic vaginal mucosa without lesions. Scant amt of normal appearing d/c se nt for wet prep. ASSESSMENT/PLAN: 616.10 VAGINITIS NOS (primary encounter diagnosis) Note: Neg wet prep. Plan: A WET PREP D/C OTC feminine products. rtc if sxs change, worsen or fail to impr ove documented in this encounter Nursing Notes 12/13/2003 2:00 PM CDT >> MARIA E ROBERTS 12/13/2003 2:17 pm vaginal itching and dryness Maria E Roberts/NEDA cuff size=large documented in this encounter Plan of Treatment Not on filedocumented as of this encounter Procedures Procedure Name Priority Date/Time Associated Diagnosis Comme nts HCL WET PREP Routine 12/13/2003 2:28 PM Vaginitis Nos Results for this CDT procedure are i n the results section . documented in this encounter Results A WET PREP (12/13/2003 2:28 PM CDT) [facility] Method Time Signature Specimen Vagina [place] Description [facility] Wet Prep No clue cells seen [place] No Trichomonas seen [facility] No yeast seen CLINIC LAB Report status FINAL [id number] [facility] Specimen Anatomical Collection Method Collection Time Receive d Time (Source) Location / / Volume Laterality 12/13/2003 2:28 PM 4 2:33 CDT PM CDT Wayne Chang PA-C LABORATORY Performing Organization Address City/State/ZIP Code Phon e Number [facility] [id number] [place] [address] [facility] documented in this encounter Visit Diagnoses Diagnosis Vaginitis and vulvovaginitis, unspecifie d - Primary documented in this encounter Care Teams Strategic Sourcing Consultant Relationship Specialty Start Date End Date Subha Ramirez PA-C PCP - General 02/23/02 03/11/10 [facility] [address] [place] [address] documented as of this encounter
--- OUTSIDE RECORDS SUMMARY | 2022-07-27 08:50 | XMS_ITS | Encounter Summary ---
:1960 Author Organization [place] Address [facility] [place] [address] Care Team Providers Name Role Phone Subha Ramirez PA-C Primary Care Provider [phone] Reason for Referral - Closed Specialty Diagnoses / Procedures Referred By Contact Refer red To Contact Diagnoses Other specified disorder of skin Wayne Chang PA-C [address] [place], [place] [address] Referral ID Status Reason Start Date Expiration Date Visits Requ ested Visits Authorized [id number] Closed 02/04/2005 08/14/2011 1 1 Reason for Visit Reason Comments Physical pap and px Derm Problem rash on hands, arms, right l eg and torso Encounter Details Date Type Department Care Team Description 02/04/2005 Office Visit [facility] Wayne Chang MAL NEOP- CERVIX (Primary Dx); Clinic [place] ALANA Cummins SKIN DISORDERS NEC; [address] [facility] [id number] [place] [address] OBESITY NOS; [place], [place] TOBACCO USE DISORDER; [phone] ABNORMAL URINE FINDINGS NEC [phone] Social History Tobacco Use Types Packs/Day Years Used Date Smoking Tobacco: Every Day Cigarettes 1 20 Alcohol Use Standard Drinks/Week Comments Yes 0 (1 standard drink = 0.6 oz pure alcoho l) 2 drinks 2x week Sex Assigned at Date Recorded Not on file documented as of this encounter Last Filed Vital Signs Vital Sign Reading Time Taken Comments Blood Pressure 132/84 02/04/2005 2:30 PM CDT Pulse 66 02/04/2005 2:30 PM CDT Temperature - - Respiratory Rate - - Oxygen Saturation - - Inhaled Oxygen Concentration - - Weight 137 kg (302 lb) 02/04/2005 2:30 PM CDT Height - - Body Mass Index 41.53 09/14/2004 11:59 AM 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 Annalisa would also like evaluation of rash. See derm ROS below for details. SOCIAL: . 1 daughter (age 26). Employed: [employer]. HABITS: SMOKE: Started smoking age 14. Now smokes 1 PPD. ETOH: 5-6 wine/week EXERCISE: No regular program. HISTORIES: There is no problem list on file for this patient. Previous Medical History: OBESITY NOS TOBACCO USE DISORDER Current outpatient prescriptions: NO ACTIVE MEDICATIONS ., , , Family History: Cancer Maternal Grandfather Comment: at 50's-60's YOA, stomach CA Neurological Maternal Grandmother Comment: at 80's, had alzheimer's C.A.D. Paternal Grandmother Comment: late 30's of [place] Cancer Paternal Grandfather Comment: 60's of lung CA Family History Negative Mother Respiratory Father Comment: sarcoidosis Obesity Sister Obesity Brother ROS: CONSTITUTIONAL: NEGATIVE for fatigue, fever, weakness,night sweats, unexplained weight changes. EYES: Has regular eye checks without any abnormalities. ENT/MOUTH: Negative for allergic rhinitis or other chronic ENT problems. RESP: Smoker. Denies any SOB, asthma hx or other resp hx. CV: Denies any chest pain/pressure, murmurs, palpitations, VICTORIA, PND, edema or other cardiac problems. GI: Denies any changes in bowel habits. Denies any black tarry or bloody stools. Denies any GI upsetor heartburn. No FMHX of colon CA or colon polyps. 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 . S/P Hyst/BSO for contraception. Pt was on ERT x 6-7 years. She d/c'd ERT lastyear. No significant problems with menopausal sxs. HYST/BSO for benign reasons. Last vaginal pap 12-04-02. Denies any hx of abnormal paps. Denies any FMHX of endometrial or ovarian CA. No other BROKE BEATER MACHINE OPERATOR hx. No abnormal discharge. No vaginal pain. Declined offer for STD check. URINARY: No dysuria, hematuria, or bladder irritability sxs. No hx of resistant UTI's, incontinence,kidney infection or kidney stones. MUSCULOSKELETAL: Chronic, bilaterl knee pain with no acute changes. Denies any new problems with muscle pain, weakness, instability, or joint stiffness. INTEGUMENTARY/SKIN: Annalisa c/o itchy rash on palmar surface of both hand (no similar on plantar surface of feet), foreams, lower legs and chest. Rash seems to be slowly spreading in a distal to proximal fashion. She denies any recent outdoor activity where she would have been exposed to plant/weed dermatitis. Never has similar previously. No hx of exzema. No new lotions/soaps or other obvious allergens. Denies any other suspicious, itchy or changing moles. BREAST: Does fairly regular SBE. Denies any lumps or changes. Denies any primary family hx of breastCA. All mammos have been normal per pt. NEURO: Denies any loss of sensation, numbness, tingling, tremors or balance problems. ENDOCRINE: Denies any symptoms of thyroid disorders or diabetes. HEME/ALLERGY/IMMUNE: Denies any hx of bleeding or clotting disorders in self or family members. PSYCHIATRIC: Denies any sxs of mood disorders. EXAM: BP 132/84 Pulse 66 Wt 302 lbs (137.0kg) LMP Hysterectomy BMI: Data Unavailable GENERAL APPEARANCE: Obese, alert and no distress ORGAN EXAMS: EYES: PERRLA. Undilated fundoscopic exam grossly within normal limits. HENT: Nasal and oral mucosa unremarkable. Throat and TM'S normal. NECK: No masses, carotid bruits, adenopathy or thyromegaly. RESP: Somewhat decreased sounds throughout. Otherwise, CTA bilaterally. No wheezes, rales or ronchi. CV: RRR with normal S1-S2. No murmurs or extra heart sounds. Carotid, radial, posterior tibial and dorsalis pedis pulses good and equal bilaterally. No edema. No JVD or carotid bruits. CHEST (BREAST): Breasts are equally symmetrical bilaterally. No skin changes or nipple discharge. Tissue is mildly and diffusely fibrocystic bilaterally without any distinctly palpable masses. No supraclavicular or axillary adenopathy either. LYMPH: No cervical, supraclavicular or axillary adenopathy. GI: Positive normo-active bowel sounds. No organomegaly or masses. Soft. No CVA tenderness. : DEFERRED. Pt s/p ERIKA and BSO. Not due for vaginal pap until 7041-3813 (by q 3-5 year vag pap standards). MS: Normal ROM UE, LE, spine. No muscle atrophy. Nontender. SKIN: Diffuse erythematous papules in above mentioned distrubution. No vesicles. Otherwise skin normal color. No suspicious lesions/moles. NEURO: Cranial nerves II-XII intact. UE and LE DTR's, strength and sensation intact and equal bilaterally. Gait within normal limits. PSYCH: Mood good and otherwise unremarkable. ASSESSMENT/PLAN: V76.2 SCREENING MAL NEOP-CERVIX (primary encounter diagnosis) Plan: UA MICRO IF POSITIVE, CBC WITH PLATELETS, A.M.A. LIPID PANEL, GLUCOSE Pt will f/u for mammo and fasting labs. 709.8 SKIN DISORDERS NEC Note: Eczema vs contact dermatitis vs other. Plan: CONSULT DERMATOLOGY, ZANTAC 150 MG OR TABS Samples of Nelly 180mg x 10 days given. If sxs significantly worsen pending dermatology referral,f/u in clinic and I will likely rx oral steroids. OBESITY: Plan: Lengthy discussion about need for diet/exercise/wt loss program. Also discussed gastric bypass. TOBACCO USE DISORDER. Plan: Advised smoking cessation. documented in this encounter Nursing Notes 02/04/2005 2:30 PM CDT >> ALFONSO LOREDO 02/04/2005 2:32 pm Annalisa Jacob presents for pap and px also has a rash on her hands, arms right leg, and torso that she's had for one week. Initial BP 132/84 Pulse 66 Wt 302 lbs (137.0kg) LMP Hysterectomy Estimated Body Mass Index is 41.54 kg/(m^2) as calculated from: Height of 5' 11.5 (1.816m) as of 09/14/04 Weight of 302 lbs (136.986 kg) as of this encounter . BP completed using cuff size: large.Alfonso Loredo RN. documented in this encounter Plan of Treatment Not on filedocumented as of this encounter Procedures Procedure Name Priority Date/Time Associated Comments Diagnosis ZZ CONSULT Routine 02/12/2005 Skin Disorders Nec DERMATOLOGY HCL UA MICRO IF Routine 02/04/2005 3:07 PM Screening Mal Resul ts for this POSITIVE CDT Neop-Cervix procedure are i n the results section. CL AFF MICRO Routine 02/04/2005 3:07 PM Abnormal Urine Results for this EXAM-URINE CDT Findings Nec procedure are i n the results section. documented in this encounter Results CONSULT DERMATOLOGY (02/12/2005) Narrative This result has an attachment that is no t available. Wayne Chang PA-C REFERRAL (ABNORMAL) MICRO EXAM-URINE (02/04/2005 3:07 PM CDT) [facility] Exacter Method Time Signature WBC Urine O - 2 0 - 2 [place] /HPF [facility] RBC Urine O - 2 0 - 2 [place] /HPF [facility] Squamous EPI Moderate (A) FEW /LPF [facility] Bacteria Urine Few (A) NEG /HPF [facility] Specimen Anatomical Collection Method Collection Time Receive d Time (Source) Location / / Volume Laterality 02/04/2005 3:07 PM 5 3:08 CDT PM CDT Wayne Chang PA-C LABORATORY Performing Organization Address City/State/ZIP Code Phon e Number [facility] [address] [place] [address] [facility] (ABNORMAL) UA MICRO IF POSITIVE (02/04/2005 3:07 PM CDT) Patholo gist Method Time Signature Color Urine Yellow [facility] Appearance Urine Clear [facility] Glucose Urine Negative NEG mg/dL [facility] Bilirubin Urine Negative NEG [facility] Ketones Urine Negative NEG mg/dL [facility] Specific [place] 1.025 1.001 - [place] Urine 1.035 [facility] Blood Urine Small (A) NEG [facility] pH Urine 5.0 5.0 - 7.0 [place] pH [facility] Protein Albumin Negative NEG mg/dL [place] Urine [facility] Urobilinogen 0.2 0.2 - 1.0 [place] Urine EU/dL [facility] Nitrite Urine Negative NEG [facility] Leukocyte Negative NEG [place] Esterase Urine [facility] Source Midstream [place] Urine [facility] Specimen Anatomical Collection Method Collection Time Receive d Time (Source) Location / / Volume Laterality 02/04/2005 3:07 PM 5 3:08 CDT PM CDT Wayne Chang PA-C LABORATORY Performing Organization Address City/State/[facility] Code Phon e Number [facility] [address] [place] [address] [facility] documented in this encounter Visit Diagnoses Diagnosis Screening for malignant neoplasm of the cervix - Primary Other specified disorder of skin Obesity, unspecified Tobacco use disorder Other nonspecific finding on examination of urine documented in this encounter Care Teams Chief Librarian Branch Or Department Relationship Specialty Start Date End Date Subha Ramirez PA-C PCP - General 02/23/02 03/11/10 [facility] [address] [place] [address] documented as of this encounter
--- OUTSIDE RECORDS SUMMARY | 2022-07-27 08:50 | XMS_ITS | Encounter Summary ---
:1960 Author Organization [place] Address [address] [place] [address] Care Team Providers Name Role Phone Subha Ramirez PA-C Primary Care Provider [phone] Reason for Visit Reason Comments Laceration left index finger Encounter Details Date Type Department Care Team Description 01/29/2004 Abstract [facility] Go Lance willson MD [place] RETIRED [address] [address] [place], [place] [address] [phone] Social History Tobacco Use Types Packs/Day Years Used Date Smoking Tobacco: Every Day Cigarettes 1 20 Alcohol Use Standard Drinks/Week Comments Yes 0 (1 standard drink = 0.6 oz pure alcoho l) 2x week Sex Assigned at Date Recorded Not on file documented as of this encounter Progress Notes 01/29/2004 11:59 PM CDT Bacitracin sutures out 7-10 days This information has been abstracted from the urgent care chart. documented in this encounter Plan of Treatment Not on filedocumented as of this encounter Visit Diagnoses Not on filedocumented in this encounter Care Teams Environmental Engineer Scientist Relationship Specialty Start Date End Date Subha Ramirez PA-C PCP - General 02/23/02 03/11/10 [facility] [address] [place] [address] documented as of this encounter
--- OUTSIDE RECORDS SUMMARY | 2022-07-27 08:50 | XMS_ITS | Encounter Summary ---
:1960 Author Organization [place] Address [facility] [address] Care Team Providers Name Role Phone Subha Ramirez PA-C Primary Care Provider [phone] Reason for Visit Reason Comments Refill Request Estrace Encounter Details Date Type Department Care Team Description 03/05/2003 Refill [facility] Jada Gifford MD Refill Request Clinic [address]IN[address] ANGULO (Estrace) [address] [place], [place] [address] [place] [address] (W ork) [address] [phone] Social History Tobacco Use Types Packs/Day Years Used Date Smoking Tobacco: Never Assessed Sex Assigned at Date Recorded Not on file documented as of this encounter Miscellaneous Notes Telephone Encounter - 03/05/2003 11:59 PM CDT >> CARLYN Sauceda Mar 05, 2003 11:39 AM >> CALL RECEIVED. Contact: Requesting refill on Estrace 1mg Last filled 01/29/03 Last seen 12/10/02 Last physical 12/04/02 with Estrace is only med she is taking according to the chart. Pt. is a smoker. Pap result was normal at this physical. Carlyn Willett RN documented in this encounter Plan of Treatment Not on filedocumented as of this encounter Visit Diagnoses Not on filedocumented in this encounter Care Teams Rn International Relationship Specialty Start Date End Date Subha Ramirez PA-C PCP - General 02/23/02 03/11/[address] [facility] [address] [facility] [place] [address] documented as of this encounter
--- OUTSIDE RECORDS SUMMARY | 2022-07-27 08:50 | XMS_ITS | Encounter Summary ---
:1960 Author Organization [place] Address [address] [place] [address] Care Team Providers Name Role Phone Subha Ramirez PA-C Primary Care Provider [phone] Reason for Visit Reason Comments Refill Request Encounter Details Date Type Department Care Team Description 02/12/2004 Office Visit [facility] ALBIN Ramirez IC POSTMENOPAUSAL STATUS (Primary Dx); [facility] ALANA Mascorro DERMATITIS NOS [address] [place], [place] [address] [place] [address] [place], [place] [phone] [address] Social History Tobacco Use Types Packs/Day Years Used Date Smoking Tobacco: Every Day Cigarettes 1 20 Alcohol Use Standard Drinks/Week Comments Yes 0 (1 standard drink = 0.6 oz pure alcoho l) 2 drinks 2x week Sex Assigned at Date Recorded Not on file documented as of this encounter Last Filed Vital Signs Vital Sign Reading Time Taken Comments Blood Pressure 134/74 02/12/2004 3:30 PM CDT Pulse - - Temperature - - Respiratory Rate - - Oxygen Saturation - - Inhaled Oxygen Concentration - - Weight 137.9 kg (304 lb) 02/12/2004 3:30 PM CDT Height 181 cm (5' 11.25) 02/12/2004 3:30 PM CDT Body Mass Index 42.1 02/12/2004 3:30 PM CDT documented in this encounter Progress Notes 02/12/2004 3:30 PM CDT SUBJECTIVE: Annalisa is a 43 year old female presenting to discuss Estrace therapy. Has been on this for 4 years since her hyst surgery which was for an ovarian cyst and fibroids. Never had abnormal p aps. Not having hot flashes. Has had skin redness and itching after being in sun, getting worse ove r the last few years Review of patient's past medical history indicates: OBESITY NOS Meds as of 02/12/2004: ESTRACE 1 MG OR TABS 1 TAB PO QD (Once per day) Review of the patient's allergies finds: Penicillins OBJECTIVE: Well appearing; NAD; vitals stable; blotchy erythema over entire arm bilat ASSESSM ENT:/PLAN: V49.81 ASYMPTOMATIC POSTMENOPAUSAL STATUS (primary encounter diagnosis) Note: Plan: DEXA , BONE DENSITY, AXIAL SKEL Discussed risks and benefits of hormone therapy; she will try going without estrace, may call if desires to go back on this due to hot flashes or vaginal symptoms; advis ed follow up for cpx and can follow up at that time; discussed calcium intake, and exercise to mainta in bone density 692.9 DERMATITIS NOS Note: Plan: ANTINUCLEAR ANTIBODIES rule out cutaneous aj pus or autoimmune reaction, advised her to try benadryl documented in this encounter Nursing Notes 02/12/2004 3:30 PM CDT >> ANDIE NAZARIO 02/12/2004 3:52 pm Pt is here for a med refill of estrace. Sisi Nazario RN documented in this encounter Plan of Treatment Not on filedocumented as of this encounter Procedures Procedure Name Priority Date/Time Associated Comments Diagnosis CL AFF ANTINUCLEAR Routine 02/12/2004 4:11 PM Dermatitis Nos R esults for this ANTIBODIES CDT procedure are i n the results section. documented in this encounter Results ANTINUCLEAR ANTIBODIES (02/12/2004 4:11 PM CDT) [facility] Method Time Signature GERBER Screen by <1.0 [facility] EIA Interpretation: ??Negative [facility] Specimen Anatomical Collection Method Collection Time Receive d Time (Source) Location / / Volume Laterality 02/12/2004 4:11 PM 4 4:16 CDT PM CDT Subha Ramirez PA-C LABORATORY Performing Organization Address City/State/ZIP Code Phon e Number [facility] [address] [place], [place] [phone] [place] [address] LABS documented in this encounter Visit Diagnoses Diagnosis Asymptomatic postmenopausal status (age- related) (natural) - Primary Contact dermatitis and other eczema, due to unspecified cause documented in this encounter Care Teams Retail Reset Merchandiser Relationship Specialty Start Date End Date Subha Ramirez PA-C PCP - General 02/23/02 03/11/10 [facility] [address] [place] [address] documented as of this encounter
--- OUTSIDE RECORDS SUMMARY | 2022-07-27 08:50 | XMS_ITS | Encounter Summary ---
:1960 Author Organization [place] Address [address] [place] [address] Care Team Providers Name Role Phone Subha Ramirez PA-C Primary Care Provider [phone] Reason for Visit Reason Onset Date Comments Orders 01/05/2005 mamogram Encounter Details Date Type Department Care Team Description 01/05/2005 Telephone [facility] Wayne Chang (mamogram) [place] ALANA Cummins [address] [place] [phone] (Wo rk) Social History Tobacco Use Types Packs/Day Years Used Date Smoking Tobacco: Every Day Cigarettes 1 20 Alcohol Use Standard Drinks/Week Comments Yes 0 (1 standard drink = 0.6 oz pure alcoho l) 2 drinks 2x week Sex Assigned at Date Recorded Not on file documented as of this encounter Miscellaneous Notes Telephone Encounter - Dixie Murray - 01/05/2005 9:14 AM CDT LMOM Pt. notified of referral. Hallie Murray LPN Telephone Encounter - 01/05/2005 9:11 AM CDT Staff Message copied by DIXIE MURRAY on 01/05/2005 at 9:11 AM ------ Message from: DEVANTE MURPHY Created: 01/05/2005 at 9:04 AM Regarding: AW referral for Mammo, dmo Pt is coming in on for a kamari, pt would like you to give her a referral for insurance. If questions or concerns call her at [phone]. documented in this encounter Plan of Treatment Not on filedocumented as of this encounter Visit Diagnoses Diagnosis Breast screening, unspecified - Primary documented in this encounter Care Teams Director Of Assessing Relationship Specialty Start Date End Date Subha Ramirez PA-C PCP - General 02/23/02 03/11/10 [facility] [address] [place] [address] documented as of this encounter
--- OUTSIDE RECORDS SUMMARY | 2022-07-27 08:50 | XMS_ITS | Encounter Summary ---
:1960 Author Organization [place] Address [address] [place] [address] Care Team Providers Name Role Phone Subha Ramirez PA-C Primary Care Provider [phone] Reason for Visit Reason Comments Radiology Visit Encounter Details Date Type Department Care Team Description 01/07/2005 Orders Only [facility] SCR EENING MAL [place] NEOP-BREAST,UNSPEC [address] [place] [address] (Primary Dx) [place] [address] Social History Tobacco Use Types [...] Date/Time Associated Diagnosis Comme nts C MAMMOGRAM, Routine 01/07/2005 3:08 PM Screening Mal Results for this SCREENING CDT Neop-Breast,Unspec procedure are in the results section. documented in this encounter Results MAMMOGRAM, SCREENING (01/07/2005 3:08 PM CDT) P athologist Signature MAMMOGRAM Anatomical Region Laterality Modality Other Impressions 01/07/2005 3:08 PM CDT RADIOLOGIST'S INTERPRETATION: Breast parenchyma: ??heterogeneously den se IMAGING IMPRESSION: (CATEGORY-1) NEGATIVE Jean Claude Fernandez M.D. D/T: 5 Wayne Chang PA-C SPECIAL IMAGING STUDIES documented in this encounter Visit Diagnoses Diagnosis Breast screening, unspecified - Primary documented in this encounter Care Teams Analysis Director Relationship Specialty Start Date End Date Subha Ramirez PA-C PCP - General 02/23/02 03/11/10 [facility] [address] [place] [phone] documented as of this encounter
--- OUTSIDE RECORDS SUMMARY | 2022-07-27 08:50 | XMS_ITS | Encounter Summary ---
:1960 Author Organization [facility] Address [address] [place] [address] Care Team Providers Name Role Phone Subha Ramirez PA-C Primary Care Provider [phone] Reason for Visit Reason Comments Pharyngitis sore throat , swollen glands , fever, voimitting x3 days, started with a cold one month ago Encounter Details Date Type Department Care Team Description 07/27/2004 Office Visit [facility] Michael Ochoa TREP SORE THROAT (Primary Dx); Clinic [facility] Wolf Farr MD ACUTE MAXILLARY SINUSITIS [address] [place], [place] [address] [address] [phone] [place], [place] [address] (Wo rk) Social History [...] Sign Reading Time Taken Comments Blood Pressure 130/80 07/27/2004 11:47 AM PAY STATION DEPARTMENT MANAGER Pulse - - Temperature 36.3 ??C (97.3 ??F) 07/27/2004 11:47 AM PAY STATION DEPARTMENT MANAGER Respiratory Rate - - Oxygen Saturation - - Inhaled Oxygen Concentration - - Weight 137.9 kg (304 lb) 07/27/2004 11:47 AM PAY STATION DEPARTMENT MANAGER Height 182.9 cm (6') 07/27/2004 11:47 AM PAY STATION DEPARTMENT MANAGER Body Mass Index 41.23 07/27/2004 11:47 AM PAY STATION DEPARTMENT MANAGER documented in this encounter Progress Notes 07/27/2004 11:30 AM PAY STATION DEPARTMENT MANAGER SUBJECTIVE: Annalisa Jacob is a 43 year old female who is here today with: CC:Sore Throat, Cold, Vomiting and nausea and symptoms of fever, chills and headache. Serious symptoms include none applicable. Onset of symptoms was 3 days ago. Course of illness is improving. Coldexposures at home. Treatment measures tried include fluids, OTC meds and rest. Review of patient's past medical history indicates: OBESITY NOS No active medications on file as of 07/27/2004 Review of the patient's allergies finds: Penicillins OBJECTIVE: BP 130/80 Temp (Src) 97.3 (Oral) Ht 6' (1.83m) Wt 304 lbs (137.9kg) LMP Hysterectomy GENERAL: healthy, alert, no distress and cooperative HEAD: maxillary and frontal sinus tenderness EYES:Lids and Conjunctival normal EAR: CANAL and Left TM is tosin colored, CANAL and Right TM is tosin colored. NOSE: clear rhinorrhea, mucosal erythema and mucosal edema OROPHARYNX:moderate erythema, no tonsillar hypertrophy, no exudates present and post nasal drainage. NECK: supple and small, benign anterior cervical nodes bilaterally LUNGS:normal HEART:regular rate and rhythm and no murmurs, clicks, or gallops SKIN:Warm, Dry and No Rash RST: neagative ASSESSMENT/PLAN: 034.0 STREP SORE THROAT (primary encounter diagnosis) Note: neagtive Plan: STREP GROUP A AG (RAPID), BETA STREP CONFIRM secondary to post-nasal drip 461.0 ACUTE MAXILLARY SINUSITIS Plan: LEVAQUIN 500 MG OR TABS daily x 10 days. Sudafed q 12hours and saline nasal spray Q4 hours for congestion. May use tylenol/motrin prn, steam and warm paks to face, in addition. Advised to return for evaluation if symptoms persist or worsen. Michael Ochoa MD [facility] documented in this encounter Nursing Notes 07/27/2004 11:30 AM CST >> KAVON LEARY 07/27/04 11:47 am Annalisa Jacob presents for sore throat , swollen glands, fever, voimitting x3 days, started with a cold one month ago. Initial BP 130/80 Temp (Src) 97.3 (Oral) Ht 6' (1.83m) Wt 304 lbs (137.9kg) LMP Hysterectomy. BP completed using cuff size: large. Kavon Leary, Home Health Cna documented in this encounter Plan of Treatment Not on filedocumented as of this encounter Procedures Procedure Name Priority Date/Time Associated Diagnosis Comme nts HCL BETA STREP Routine 07/27/2004 12:00 PM Strep Sore Throat R esults for this CONFIRM PAY STATION DEPARTMENT MANAGER procedure are i n the results section. HCL STREP GROUP A Routine 07/27/2004 12:00 PM Strep Sore Throa t Results for this AG (RAPID) PAY STATION DEPARTMENT MANAGER procedure are i n the results section. documented in this encounter Results BETA STREP CONFIRM (07/27/2004 12:00 PM PAY STATION DEPARTMENT MANAGER) Component Value Ref Test Analysis Performed At [facility] gist Range Method Time Signature Specimen Throat [facility] Culture Micro No Beta LUBBOCK Streptococcus [facility] LAB Report status FINAL [id number] [facility] LAB Specimen Anatomical Collection Method Collection Time Receive d Time (Source) Location / / Volume Laterality 07/27/2004 12:00 07/27/2004 PM PAY STATION DEPARTMENT MANAGER 12:01 PM PAY STATION DEPARTMENT MANAGER Michael Ochoa MD LABORATORY Performing Organization Address City/[facility] Code Phon e Number [address] [id number] [facility] LAB STREP GROUP A AG (RAPID) (07/27/2004 12:00 PM PAY STATION DEPARTMENT MANAGER) Component Value Ref Test Analysis Performed At [facility] gist Range Method Time Signature Specimen Throat [facility] Rapid Strep A NEGATIVE: No Group A strepto coccal antigen detected by immunoassay, await LUBBOCK Screen culture report. [facility] Report status FINAL [id number] [facility] LAB Specimen Anatomical Collection Method Collection Time Receive d Time (Source) Location / / Volume Laterality 07/27/2004 12:00 07/27/2004 PM PAY STATION DEPARTMENT MANAGER 12:01 PM PAY STATION DEPARTMENT MANAGER Michael Ochoa MD LABORATORY Performing Organization Address City/[facility]/ZIP Code Phon e Number [facility] [address] [place] [address] [facility] documented in this encounter Visit Diagnoses Diagnosis Streptococcal sore throat - Primary Acute maxillary sinusitis documented in this encounter Care Teams Motorcycle Delivery Driver Relationship Specialty Start Date End Date Subha Ramirez PA-C PCP - General 02/23/02 03/11/10 [facility] [address] [place] [address] documented as of this encounter
--- OUTSIDE RECORDS SUMMARY | 2022-07-27 08:50 | XMS_ITS | Encounter Summary ---
:1960 Author Organization [place] Address [address] [place] [address] Care Team Providers Name Role Phone Subha Ramirez PA-C Primary Care Provider [phone] Reason for Visit Reason Comments Nurse Advice Line Encounter Details Date Type Department Care Team Description 09/12/2004 Telephone [facility] Raya Ramirez, Nurse Advice Line [place] [address] [place], [place] [address] [facility] [address] [place], [place] [phone] [address] (Wo rk) Social History Tobacco Use Types [...] on filedocumented in this encounter Care Teams Tso Relationship Specialty Start Date End Date Subha Ramirez PA-C PCP - General 02/23/02 03/11/10 [facility] [address] [place] [address] documented as of this encounter
--- OUTSIDE RECORDS SUMMARY | 2022-07-27 08:50 | XMS_ITS | Encounter Summary ---
:1960 Author Organization [place] Address [address] [place] [address] Care Team Providers Name Role Phone Subha Ramirez PA-C Primary Care Provider [phone] Reason for Visit Reason Comments Sinus Problem x9 days, pressure in ears an d facial around eyes, started out as swollen glands Encounter Details Date Type Department Care Team Description 09/14/2004 Office Visit [facility] James, ACUTE MAXI LLARY SINUSITIS; Clinic [place] ALANA Mascorro ACUTE BRONCHITIS [address] [place] [address] [place] [address] [place], [place] [phone] [address] Social History Tobacco Use Types Packs/Day Years Used Date Smoking Tobacco: Every Day Cigarettes 1 20 Alcohol Use Standard Drinks/Week Comments Yes 0 (1 standard drink = 0.6 oz pure alcoho l) 2 drinks 2x week Sex Assigned at Date Recorded Not on file documented as of this encounter Last Filed Vital Signs Vital Sign Reading Time Taken Comments Blood Pressure 120/90 09/14/2004 11:[address]NA[address] Pulse - - Temperature 36 ??C (96.8 ??F) 09/14/2004 11:[address]NAGER Respiratory Rate - - Oxygen Saturation - - Inhaled Oxygen Concentration - - Weight - - Height 181.6 cm (5' 11.5) 09/14/2004 11:[address]NAGER Body Mass Index - - documented in this encounter Progress Notes 09/14/2004 11:[address]NA[address] SUBJECTIVE: Annalisa Jacob is a 43 year old female patient complaining of ear pressure, nasal congestion, sinus fullness, frequent productive cough for 9 day(s). OTC sudafed may be helping. Fever and chills at first. No shortness of breath or chest tightness. Was treated twice in [facility] for sinus infection, exposed to grandchildren who have been sick. Increased stress with having daughter and hussain zhong live in the home. OBJECTIVE: The patient appears alert, mild distress and fatigued. EARS: External ears normal. Canals clear. TM's normal. NOSE/SINUS: positive findings: mucosa swollen, pale, and boggy, purulent rhinorrhea Sinus palpation: Maxillary sinus nontender to palpation THROAT: normal NECK:Neck supple. No adenopathy. Thyroid symmetric, normal size, CHEST: Clear to auscultation, heart RRR ASSESSMENT: Acute Sinusitis, bronchitis PLAN: See orders. In addition, I have suggested that the patient use Glen CF or mucinex, rest and fluids. Discussed living situation and making changes. documented in this encounter Nursing Notes 09/14/2004 11:45 AM CST >> KAVON LEARY 09/14/04 11:59 am Annalisa Jacob presents for x9 days, pressure in ears and facial around eyes, started out as [place]. Initial BP 120/90 Temp (Src) 96.8 (Oral) Ht 5' 11.5 (1.82m) LMP Hysterectomy. BP completed using cuff size: large. Kavon Leary, Stretcher Operator documented in this encounter Plan of Treatment Not on filedocumented as of this encounter Visit Diagnoses Diagnosis Acute maxillary sinusitis Acute bronchitis documented in this encounter Care Teams Wellness Nurse Rn Relationship Specialty Start Date End Date Subha Ramirez PA-C PCP - General 02/23/02 03/11/10 [facility] [address] [place] [address] documented as of this encounter
--- OUTSIDE RECORDS SUMMARY | 2022-07-27 08:50 | XMS_ITS | Encounter Summary ---
:1960 Author Organization [place] Address [address] [place] [address]. [place] [address] Care Team Providers Name Role Phone Subha Ramirez PA-C Primary Care Provider [phone] Reason for Visit Reason Comments Sinus Problem Tim completed 08/06/04 Encounter Details Date Type Department Care Team Description 08/12/[address] [facility] Jorge L Osman, [place] [facility] [place] [facility] [address] [facility] [place], [place] SERVICE [address] [address] [facility] [phone] [address] [place], [place] [address] (Wo rk) Social History Tobacco [...] Sign Reading Time Taken Comments Blood Pressure 132/88 08/12/2004 10:39 AM PAINT SUPERVISOR Pulse - - Temperature 37.1 ??C (98.7 ??F) 08/12/2004 10:39 AM PAINT SUPERVISOR Respiratory Rate - - Oxygen Saturation - - Inhaled Oxygen Concentration - - Weight - - Height - - Body Mass Index - - documented in this encounter Progress Notes 08/12/2004 10:30 AM PAINT SUPERVISOR SUBJECTIVE: Annalisa Jacob is a 43 year old female patient complaining of sinus pressure, post nasal drip, ear pressure and chest congestion for 3 week(s). OBJECTIVE: The patient appears healthy, alert and no distress. EARS: External ears normal. Canals clear. TM's normal. NOSE/SINUS: Nares normal. Septum midline. Mucosa normal. No drainage or sinus tenderness. Sinus palpation: Frontal sinus and Maxillary sinus tender to palpation THROAT: mild erythema NECK:Neck supple. No adenopathy. Thyroid symmetric, normal size, CHEST: Clear to percussion, ausculation CARDIAC: S1, S2, no gallops, no murmur ASSESSMENT: Acute Sinusitis PLAN: See orders. In addition, I have suggested that the patient continue sudafed which she has not been taking regularly and RTC 5-7 days documented in this encounter Nursing Notes 08/12/2004 10:30 AM CST >> CAROLINA DU 08/12/04 10:40 am Annalisa Jacob presents for recurrence of sinus sx. Tx'd with Levaquin 07/27/04, felt better, congestion, swollen glands, left ear pressure started 08/10/04. Took Sudafed 12-Hr. at 8:00am. Initial BP 132/88 Temp (Src) 98.7 (Oral) LMP Hysterectomy. BP completed using cuff size: large. Carolina Du RN documented in this encounter Plan of Treatment Not on filedocumented as of this encounter Visit Diagnoses Diagnosis Acute maxillary sinusitis - Primary documented in this encounter Care Teams Fabric Awning Repairer Relationship Specialty Start Date End Date Subha Ramirez PA-C PCP - General 02/23/02 03/11/10 [facility] [address] [place] [address] documented as of this encounter
--- OUTSIDE RECORDS SUMMARY | 2022-07-27 08:50 | XMS_ITS | Encounter Summary ---
:1960 Author Organization [place] Address [address] [place] [address] Care Team Providers Name Role Phone Subha Ramirez PA-C Primary Care Provider Reason for Visit Reason Comments Suture Removal Encounter Details Date Type Department Care Team Description 02/07/2004 Abstract [facility] Alexys beasley, DO [place] [address] [place] [address] [place], [place] [phone] Social History Tobacco Use Types Packs/Day Years Used Date Smoking Tobacco: Every Day Cigarettes 1 20 Alcohol Use Standard Drinks/Week Comments Yes 0 (1 standard drink = 0.6 oz pure alcoho l) 2x week Sex Assigned at Date Recorded Not on file documented as of this encounter Progress Notes 02/07/2004 11:59 PM CDT f/u prn This information has been abstracted from the urgent care chart. documented in this encounter Plan of Treatment Not on filedocumented as of this encounter Visit Diagnoses Not on filedocumented in this encounter Care Teams Event Manager Relationship Specialty Start Date End Date Subha Ramirez PA-C PCP - General 02/23/02 03/11/10 [facility] [address] [place] [address] documented as of this encounter
--- OUTSIDE RECORDS SUMMARY | 2022-07-27 08:50 | XMS_ITS | Encounter Summary ---
:1960 Author Organization [place] Address [address] [place] [address] Care Team Providers Name Role Phone Subha Ramirez PA-C Primary Care Provider [phone] Encounter Details Date Type Department Care Team Description 02/11/2004 Abstract [facility] Ester Galvan [address] [place] [phone] Social History Tobacco Use Types Packs/Day Years [...] Name Priority Date/Time Associated Diagnosis Comme nts ABSTRACT MAMMO-NO CHARGE Routine 12/11/2002 ABSTRACT PAP (HIM EXTERNAL RESULT) Routine 12/04/2002 documented in this encounter Results ABSTRACT MAMMO-NO CHARGE (12/11/2002) Anatomical Region Laterality Modality Other Ester Galvan GENERAL IMAGING ABSTRACT PAP-NO CHARGE (12/04/2002) Ester Galvan LAB - HIM EXTERNAL RESULT Performing Organization Address City/State/ZIP Code Phon e Number [facility] documented in this encounter Visit Diagnoses Not on filedocumented in this encounter Care Teams Retention Specialist Relationship Specialty Start Date End Date Subha Ramirez PA-C PCP - General 02/23/02 03/11/10 [facility] [address] [place] [address] documented as of this encounter
--- OUTSIDE RECORDS SUMMARY | 2022-07-27 08:50 | XMS_ITS | Encounter Summary ---
:1960 Author Organization [place] Address Replaced by [facility] [place] [address] Care Team Providers Name Role Phone Subha Ramirez PA-C Primary Care Provider [phone] Reason for Visit Reason Comments Refill Request estrace Encounter Details Date Type Department Care Team Description 01/22/2004 Refill [facility] Marita Wyatt MD Refill Request Clinic [address] [place] (estrace) [id number] [place] [id number] [place] [address] (W ork) [address] [phone] Social History Tobacco Use Types Packs/Day Years Used Date Smoking Tobacco: Every Day Cigarettes 1 20 Alcohol Use Standard Drinks/Week Comments Yes 0 (1 standard drink = 0.6 oz pure alcoho l) 2x week Sex Assigned at Date Recorded Not on file documented as of this encounter Miscellaneous Notes Telephone Encounter - 01/22/2004 11:59 PM CDT >> KARLA GONZALEZ Sat Jan 25, 2004 8:42 AM pt notified Karla Gonzalez RN >> WAYNE TERRAZAS Fri Jan 24, 2004 3:19 PM I saw pt only once for acute vaginitis. please call pt and let her know I ok'd x 1 month. She has no PE/pap on file x 1 year. Pt will need to f/u for pap/breast/PE before ongoing rf's. >> MARITA WYATT Wed Jan 22, 2004 6:01 PM I have not seen patient in over a year; and Wayne is listed as PCP. Can you change the prescribingprovider and send to her? thanks. >> TUNG MURRAY TueJan 22, 2004 3:07 PM >> CALL RECEIVED. Contact: last refill 12/17/03. Last clinic visit 12/13/03.Hallie Murray LPN documented in this encounter Plan of Treatment Not on filedocumented as of this encounter Visit Diagnoses Not on filedocumented in this encounter Care Teams Hospice Chaplain Relationship Specialty Start Date End Date Subha Ramirez PA-C PCP - General 02/23/02 03/11/10 [facility] [address] [place] [address] documented as of this encounter
--- OUTSIDE RECORDS SUMMARY | 2022-07-27 08:50 | XMS_ITS | Encounter Summary ---
:1960 Author Organization [place] Address [address] [place] [address] Care Team Providers Name Role Phone Subha Ramirez PA-C Primary Care Provider [phone] Reason for Visit Reason Comments Derm Problem spot on nose Encounter Details Date Type Department Care Team Description 12/22/2004 Office Visit [facility] James, SEBORRHEIC KERATOSIS NOS (Primary Dx); [facility] ALANA Mascorro TOBACCO USE DISORDER [address] [place], [place] [address] [place] [address] [place], [place] [phone] [address] Social History Tobacco Use Types Packs/Day Years Used Date Smoking Tobacco: Every Day Cigarettes 1 20 Alcohol Use Standard Drinks/Week Comments Yes 0 (1 standard drink = 0.6 oz pure alcoho l) 2 drinks 2x week Sex Assigned at Date Recorded Not on file documented as of this encounter Last Filed Vital Signs Vital Sign Reading Time Taken Comments Blood Pressure 134/78 12/22/2004 3:15 PM CDT Pulse - - Temperature - - Respiratory Rate - - Oxygen Saturation - - Inhaled Oxygen Concentration - - Weight - - Height - - Body Mass Index - - documented in this encounter Progress Notes Subha Ramirez - 12/22/2004 3:42 PM CDT SUBJECTIVE: Annalisa is a 44 year old female presenting with brown spot on nose; started as dry skin, would rub off and scab, first noticed at least 2 years ago, now feels scabby and occas itches; no bleeding or redness; PMH: had patch of skin on hand frozen in past, no PMH or FH of skin cancer She notes 3 separate spots on rt leg also. Previous Medical History: OBESITY NOS No current outpatient prescriptions on file. Penicillins OBJECTIVE: Well appearing; NAD; vitals stable; Nose with 2mm round brown scaly lesion Rt lower leg has red papule approx 3-4mm round, another pink scaly patch approx 5-6mm round and upper thigh has a pink scaly excoration lesion approx 5-6mm round, all appear benign ASSESSMENT:/PLAN: 702.19 SEBORRHEIC KERATOSIS NOS (primary encounter diagnosis) Note: Plan: DESTRUC BENIGN/PREMAL,1ST LESI treated with 3 cycles of liquid nitrogen, discussed expectations and side effects, may refer to derm if not resolved; reassurance of other lesions and she will monitor for changes Also discussed smoking cessation and med options, handouts given; she will consider these and also call [employer] regarding options; follow up next week for annual exam documented in this encounter Nursing Notes 12/22/2004 3:15 PM CDT >> YISEL JOHNSON 12/22/2004 3:29 pm Annalisa Jacob presents for spot on her nose she states has been there for 2 years. Pt would like evaluated. Initial BP 134/78 LMP Hysterectomy Estimated Body Mass Index is 41.81 kg/(m^2) as calculated from: Height of 5' 11.5 (1.816m) as of 09/14/04 Weight of 304 lbs (137.893 kg) as of 07/27/04 . BP completed using cuff size: large. Yisel Johnson CMA documented in this encounter Plan of Treatment Not on filedocumented as of this encounter Procedures Procedure Name Priority Date/Time Associated Diagnosis Comme nts HC DESTRUCT PREMALIGNANT Routine 12/22/2004 4:55 PM Seborrheic Keratosis LESION, FIRST CDT Nos documented in this encounter Visit Diagnoses Diagnosis Other seborrheic keratosis - Primary Tobacco use disorder documented in this encounter Care Teams Social Work Supervisor Relationship Specialty Start Date End Date Subha Ramirez PA-C PCP - General 02/23/02 03/11/[address] [facility] [address] [place] [address] documented as of this encounter
--- OUTSIDE RECORDS SUMMARY | 2022-07-27 08:50 | XMS_ITS | Encounter Summary ---
:1960 Author Organization [place] Address [address] [place] [address]. [place] [address] Care Team Providers Name Role Phone Subha Ramirez PA-C Primary Care Provider [phone] Reason for Visit Reason Comments Refill Request Estrace Encounter Details Date Type Department Care Team Description 12/18/2003 Refill [facility] Marita Wyatt MD Refill Request Clinic [address] [place] (Estrace) [id number] [place] [phone] [place] [address] (W ork) [address] [phone] Social History Tobacco Use Types Packs/Day Years Used Date Smoking Tobacco: Every Day Cigarettes 1 20 Alcohol Use Standard Drinks/Week Comments Yes 0 (1 standard drink = 0.6 oz pure alcoho l) 2x week Sex Assigned at Date Recorded Not on file documented as of this encounter Miscellaneous Notes Telephone Encounter - 12/18/2003 11:59 PM CDT >> ANTONIA FERNANDEZ TueDecember 20, 2003 2:42 PM LMOM at work # to inform rx faxed in and to schedule appt before further refills. Antonia Fernandez RN >> WAYNE CHANG TueDecember 20, 2003 1:32 PM please call pt and let her know I o.k'd 3 month rx only. I see my pts on estrogen (even ERIKA/SBO) at least once per year for physical exam to review hx, breast exam, cardiovascular exam, etc. >> YUNIOR Andre December 19, 2003 10:24 AM Notified pharm and they switched provider on refill from Dr Wyatt to Wayne. Future refills should come in Wayne's name. Routed to Wayne for pending rx. KGordon STRAIGHTENING MACHINE FEEDER >> MARITA WYATT TueDecember 18, 2003 5:28 PM Would recommend that this goes through Wayne (listed as primary provider, and I have not seen since up in [facility]). Can you change the provider on the script so future refills go to her directly? >> ALFONSO LOREDO TueDecember 18, 2003 9:28 AM >> CALL RECEIVED. Contact: Last filled on 11/07/03. Last visit was on 12/13/03 with Wayne Chang for vaginitis. Alfonso Loredo RN. documented in this encounter Plan of Treatment Not on filedocumented as of this encounter Visit Diagnoses Not on filedocumented in this encounter Care Teams Castings Drafter Relationship Specialty Start Date End Date Subha Ramirez PA-C PCP - General 02/23/02 03/11/10 [facility] [address] [place] [address] documented as of this encounter
--- OUTSIDE RECORDS SUMMARY | 2022-07-27 08:51 | XMS_ITS ---
:1960 Author Care Team Providers Name Role Phone ALEX MAURI ZAVALA Primary Care Provider [phone] Allergies Code Code System Name Reaction Severity Status Onset Penicillin ? ? Active ? Medications Name Status Start Date Stop Date ? ? alprazolam 0.25 mg tablet Active ? Not av ailable TAKE 1 TABLET BY MOUTH THREE TIMES DAILY NEEDED clindamycin HCl 150 mg capsule Active ? N ot available TAKE FOUR CAPSULES BY MOUTH 30 60 MINUTES BEFORE APPOINTMENT clobetasol 0.05 % topical cream Active ? Not available finasteride 5 mg tablet Active ? Not avai lable TAKE 1/2 (ONE-HALF) TABLET BY MOUTH ONCE DAILY fluocinonide 0.05 % topical solution Active ? Not available APPLY SOLUTION TOPICALLY TWICE DAILY hydroxyzine pamoate 25 mg capsule Active ? Not available TAKE 1 TO 2 CAPSULES BY MOUTH EVERY 6 HOURS NEEDED itraconazole 100 mg capsule Active ? Not available TAKE 2 CAPSULES BY MOUTH TWICE DAILY FO R 7 DAYS OF EACH MONTH FOR 3 MONTHS TOTAL ondansetron HCl 4 mg tablet Completed ? 01/13 TAKE 1 TABLET BY MOUTH EVERY 6 HOURS NEEDED terbinafine HCl 250 mg tablet Active ? No t available TAKE 1 TABLET BY MOUTH ONCE DAILY triamcinolone acetonide 0.1 % topical cream Completed ? 04/15/2022 APPLY CREAM TOPICALLY TO AFFECTED AREA TWICE DAILY NEEDED Problems Name Status Onset Date Source ? 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 06/27/2019 Cystoscopy Information not avai lable Notes: 06/27/2019 - CYSTOSCOPY 03/27/2019 Removal of Thyroid Information not avai lable Notes: 03/27/2019 - REMOVAL OF THYROID 02/21/2019 Cystoscopy and Treatment Information not available Notes: 02/21/2019 - CYSTOSCOPY AND ROSE ATMENT 12/25/2018 Cystoscopy Information not avai lable Notes: 12/25/2018 - CYSTOSCOPY ? Hip Arthr0 W/synovectomy Information not available Notes: HIP ARTHR0 W/SYNOVECTOMY ? Knee Arthroscopy/surgery Information not available Notes: KNEE ARTHROSCOPY/SURGERY ? Removal of Gallbladder Information not a vailable Notes: REMOVAL OF GALLBLADDER ? Total Hysterectomy Information not avai lable Notes: TOTAL HYSTERECTOMY Results Lab Results Date Name Specimen Result Interpretation Description Value Range Status Address ? 04/15/2022 Urinalysis, UR ? Color yellow yellow Final [place] [facility]: [address] [address], [place] ? ? UR ? Appearance clear clear Final [place] [facility]: [address] [address], [place] ? ? UR ? Glucose negative negative Final [place] [facility] mg/dL mg/dL [facility]: [address] ? ? UR ? Bilirubin negative negative Final [place] [facility]: [address] [address], [place] ? ? UR ? Ketones negative negative Final [place] [facility] mg/dL mg/dL [facility]: [address] [address], [place] ? ? UR ? Sp. Moroni 1.015 1.010-1.0 Final [place] [facility]: [address] [address], [place] ? ? UR ? pH -[facility] 6.5 5.0-8.0 Final [place] [facility]: [address] ? ? UR ? Protein negative negative Final [place] [facility] mg/dL mg/dL [facility]: [address] [address], [place] ? ? UR ? Urobilinogen 0.2 normal Final [place] [facility]: [address] [address], [place] ? ? UR ? Nitrites negative negative Final [place] [facility]: [address] [address], [place] ? ? UR ? Blood negative negative Final [place] inventory management specialist [facility]: [address] [address], [place] ? ? UR ABNORMAL Leukocytes moderate negative Final [place] [facility]: [address] [address], [place] ? ? UR ? Performed by esperanza Simmons ? [place] [facility]: [address] [place] [address], [place] ? ? UR ? Total Urine 25 /mL ? Final [place] Volume (mL) [facility]: [address] [place] [address], [place] 04/15/2022 Urinalysis, ABNORMAL U-WBC 2 - 5 0 - 2 Final [place] [facility] [hpf] [hpf] [facility]: [address] [address], [place] ? ? ? U-RBC 0 - 2 0 - 2 Final [place] [hpf] [hpf] [facility]: [address] [place] [address], [place] ? ? ABNORMAL Bacteria small negative Final [place] [hpf] [hpf] [facility]: [address] [place] [address], [place] ? ? ABNORMAL Squamous Epi moderate negative, Fin al [place] /lpf small [facility] - /[facility]: [address] [place] [address], [place] 01/27/2021 Urinalysis, UR ? Color yellow yellow Final [place] [facility]: [address] [place] [address], [place] ? ? UR ? Appearance clear clear Final [place] [facility]: [address] [place] [address], [place] ? ? UR ? Glucose negative negative Final [place] [facility] mg/dL mg/dL [facility]: [address] [place] [address] ? ? UR ? Bilirubin negative negative Final [place] [facility]: [address] [place] [address] ? ? UR ? Ketones negative negative Final [place] [facility] mg/dL mg/dL [facility]: [address] [place] [address] ? ? UR ? Sp. Moroni <=1.005 1.010-1.0 Final [place] [facility]: [address] [place] [address] ? ? UR ? pH -[facility] 6.5 5.0-8.0 Final [place] [facility]: [address] [place] [address] ? ? UR ? Protein negative negative Final [place] [facility] mg/dL mg/dL [facility]: [address] [address], [place] ? ? UR ? Urobilinogen 0.2 normal Final [place] [facility]: [address] [address], [place] ? ? UR ? Nitrites negative negative Final [place] [facility]: [address] [address], [place] ? ? UR ? Blood negative negative Final [place] inventory management specialist [facility]: [address] [address], [place] ? ? UR ABNORMAL Leukocytes small negative Final [place] [facility]: [address] [address], [place] ? ? UR ? Performed by pham Vital ? Final [place] [facility]: [address] [address], [place] ? ? UR ? Total Urine 40 /mL ? Final [place] Volume (mL) [facility]: [address] [address], [place] 01/27/2021 Urinalysis, ? U-WBC 0 - 2 0 - 2 Final [place] Micro[facility] [hpf] [hpf] [facility]: [address] [address], [place] ? ? ? U-RBC 0 - 2 0 - 2 Final [place] [hpf] [hpf] [facility]: [address] [address], [place] ? ? ABNORMAL Bacteria small negative Final [place] [hpf] [hpf] [facility]: [address] [address], [place] ? ? ? Squamous Epi small negative, Final [place] /lpf small [facility] - /[facility]: [address] [address], [place] Past Encounters Encounter Date Diagnosis Provider 04/15/2022 Malignant Neoplasm of Lateral Wall Chriso kunal Bronson MD: 6025 of Urinary Bladder; Genital Lichen [address] [place] [address], Ph. 01/27/2021 Malignant Neoplasm of Lateral Wall Chriso kunal Bronson MD: [address] of Urinary Bladder [address] [address], Ph. Social History Tobacco Smoking Status Former Smoker Vaccine List None recorded. Plan of Care Reminders Provider Appointments None recorded. ? ? Lab None recorded. ? ? Referral None recorded. ? ? Procedures None recorded. ? ? Surgeries None recorded. ? ? Imaging None recorded. ? ? Vitals Height Weight BMI 5 ft 11 in 275 lbs 38.4 kg/m2
[2022-07-27 13:53] LABS: Albumin* 4.6 g/dL (3.3-5.0); Chloride* 108 mmol/L (96-114)
[2022-07-27 13:54] LABS: Potassium* 4.8 mmol/L (3.6-5.1); Sodium* 141 mmol/L (135-149)
[2022-07-27 13:56] LABS: Aspartate Amino Transferase* 28 U/L (12-35); Bilirubin Total* 0.8 mg/dL (0.1-1.5); Carbon Dioxide* 25 mmol/L (20-32); Cholesterol* 167 mg/dL (90-199); Creatinine* 0.7 mg/dL (0.5-1.5); Estimated Glomerular Filt Rate 97 ml/min; Total Protein* 7.3 g/dL (6.0-8.3)
[2022-07-27 13:57] LABS: Alanine Aminotransferase* 29 U/L (4-35); Alkaline Phosphatase* 77 U/L (40-150); Blood Urea Nitrogen* 10 mg/dL (7-30); Calcium* 9.9 mg/dL (8.4-10.6); Glucose* 100 mg/dL (60-115); HDL Cholesterol* 53 mg/dL (>=50); LDL Cholesterol Calculated 96 mg/dL (<100); Triglycerides* 90 mg/dL (40-149)
[2022-07-27 14:19] LABS: TSH With Reflex to FT4* 0.101 uIU/mL (0.270-4.200)
[2022-07-27 15:45] LABS: Free T4 Free Thyroxine* 1.18 ng/dL (0.70-1.85)
== END 2022-07-27 08:24 | disposition home or self-care (01) ==
PROVIDERS: PCP Physician Assistant Medical; Visit Provider Physician Assistant Medical
DX: Z01.419 Encounter for gynecological examination (general) (routine) without abnormal findings (principal); E66.9 Obesity, unspecified; I10 Essential (primary) hypertension; E21.3 Hyperparathyroidism, unspecified; Z13.6 Encounter for screening for cardiovascular disorders
CPT/HCPCS: 80053; 80061; 84439; 84443

== ENCOUNTER 2022-09-21 13:26 | Outpatient (CLI) | payer OTHER, SELFPAY ==
--- NOTE | 2022-09-21 14:00 | CRLHL7_ITS ---
For Patients: As a result of the Century Cures Act, medical imaging exams and procedure reports are released immediately into your electronic medical record. You may view this report before your referring provider. If you have questions, please contact your health care provider. BILATERAL SCREENING MAMMOGRAM WITH COMPUTER-AIDED DETECTION AND TOMOSYNTHESIS TECHNIQUE: CC and MLO views were obtained. These mammographic images have been obtained using full-field digital technique. These mammographic images were interpreted with the benefit of computer-aided detection. Breast Tomosynthesis was used in this interpretation. COMPARISON FILM: 08/19/21, 06/06/20,05/29/19. FINDINGS: There are scattered areas of fibroglandular density IMPRESSION: There is no radiographic evidence for malignancy. ASSESSMENT: BI-RADS Category 1: Negative RECOMMENDATION: Routine screening mammogram in 1 year. A lay language report of this examination will be provided to the patient. Je Wilson M.D. Diagnostic Radiologist [email or web address] RICHELLE/Dictated by: Je Wilson MD @ 09/22/2022 11:13:00 AM (Electronically Signed)
== END 2022-09-21 13:27 | disposition home or self-care (01) ==
PROVIDERS: PCP Physician Assistant Medical; Visit Provider Physician Assistant Medical
DX: Z12.31 Encounter for screening mammogram for malignant neoplasm of breast (principal)
CPT/HCPCS: 77063; 77067

== ENCOUNTER 2022-11-12 09:43 | Outpatient (CLI) | payer OTHER, SELFPAY | END 2022-11-12 09:44 | disposition home or self-care (01) | LOC: NFLDREF 13:36 | PROVIDERS: PCP Physician Assistant Medical; Referring Provider Physician Assistant Medical; Visit Provider Physician Assistant Medical | DX: E05.90 Thyrotoxicosis, unspecified without thyrotoxic crisis or storm (principal) | CPT/HCPCS: 84443 ==

== ENCOUNTER 2023-08-26 10:11 | Outpatient (CLI) | payer BC, SELFPAY ==
--- OUTSIDE RECORDS SUMMARY | 2023-08-26 10:14 | XMS_ITS | Encounter Summary ---
Author Name Unknown Organization [place] Address [address] [place] [address] Care Team Providers Care Auto Motor Mechanic Name Role Phone Pam Walters MD Primary Care Provider [phone] Taty Jacob Primary Care Provider [phone] Encounter Details Date Type Department Care Team (Late st Contact Info) Description 11/12/2011 [facility] Medical Advice [address] [address] Pam Walters MD [address] [place] [address] [phone] Social History Tobacco Use Types Packs/Day Years Used Date Smoking Tobacco: Former Cigarettes 1 20 Smokeless Tobacco: Never Comments:07/2008 Alcohol Use Standard Drinks/Week Comments Yes 0 (1 standard drink = 0.6 oz pur e alcohol) very little Sex and Gender Information Value Date Recorded Sex Assigned at Not on file Gender Identity Not on file Sexual Orientation Not on file documented as of this encounter Plan of Treatment Not on file documented as of this encounter Visit Diagnoses Not on filedocumented in this encounter Care Teams Auto Motor Mechanic Relationship Specialty Start Date End Date Pam Walters MD PCP - General Family Practice 03/12/10 10/10/13 Taty Jacob [facility] [address] [place] [address] PCP - General Nurse Practitioner 10/11/13 documented as of this encounter
--- OUTSIDE RECORDS SUMMARY | 2023-08-26 10:14 | XMS_ITS | Encounter Summary ---
Author Name Unknown Organization [place] Address [address] [place] [address] Care Team Providers Care Multiplex Operator Name Role Phone Pam Walters MD Primary Care Provider [phone] Taty Jacob Primary Care Provider [phone] Encounter Details Date Type Department Care Team (Late st Contact Info) Description 03/22/2013 [facility] Medical Advice [address] [address] Pam Walters MD [address] [place] [address] [phone] Social History Tobacco Use Types Packs/Day Years [...] on filedocumented in this encounter Care Teams Multiplex Operator Relationship Specialty Start Date End Date Pam Walters MD PCP - General Family Practice 03/12/10 10/10/[address] [facility] [address] [place] [address] PCP - General Nurse Practitioner 10/11/13 documented as of this encounter
--- OUTSIDE RECORDS SUMMARY | 2023-08-26 10:14 | XMS_ITS | Encounter Summary ---
Author Name Unknown Organization [place] Address [address] [place] [address] Care Team Providers Care Stock Trader Name Role Phone Pam Walters MD Primary Care Provider [phone] Taty Jacob Primary Care Provider [phone] Encounter Details Date Type Department Care Team (Late st Contact Info) Description 02/07/2012 [facility] Medical Advice [address] [address] Pam Walters MD [address] [place] [address] [phone] Social History Tobacco Use Types Packs/Day Years [...] on filedocumented in this encounter Care Teams Stock Trader Relationship Specialty Start Date End Date Pam Walters MD PCP - General Family Practice 03/12/10 10/10/13 Taty Jacob [facility] [address] [place] [address] PCP - General Nurse Practitioner 10/11/13 documented as of this encounter
--- OUTSIDE RECORDS SUMMARY | 2023-08-26 10:14 | XMS_ITS | Encounter Summary ---
Author Name Unknown Organization [place] Address [address] [place] [address] Care Team Providers Care Dev Technical Mgr Name Role Phone Pam Walters MD Primary Care Provider [phone] Taty Jacob Primary Care Provider [phone] Encounter Details Date Type Department Care Team (Late st Contact Info) Description 08/10/[address] [facility] [address] [place] [address] Shelia Cowart MD Social History Tobacco Use Types Packs/Day Years [...] on filedocumented in this encounter Care Teams Dev Technical Mgr Relationship Specialty Start Date End Date Pam Walters MD PCP - General Family Practice 03/12/10 10/10/13 Taty Jacob [facility] [address] [place] [address] PCP - General Nurse Practitioner 10/11/13 documented as of this encounter
--- OUTSIDE RECORDS SUMMARY | 2023-08-26 10:14 | XMS_ITS | Encounter Summary ---
Author Name Unknown Organization [place] Address [address] [place] [address] Care Team Providers Care Meal Cook Name Role Phone Pam Walters MD Primary Care Provider [phone] Taty Jacob Primary Care Provider [phone] Encounter Details Date Type Department Care Team (Late st Contact Info) Description 11/22/2011 My[facility] Medical Advice [address] [address] Pam Walters MD [address] [place] [address] [phone] Social History Tobacco Use Types Packs/Day Years [...] on filedocumented in this encounter Care Teams Meal Cook Relationship Specialty Start Date End Date Pam Walters MD PCP - General Family Practice 03/12/10 10/10/13 Taty Jacob [facility] [address] [place] [address] PCP - General Nurse Practitioner 10/11/13 documented as of this encounter
--- OUTSIDE RECORDS SUMMARY | 2023-08-26 10:14 | XMS_ITS | Data Portability ---
Author Name Unknown Address [address] [place] [address] Phone [phone] Organization [facility], [facility] Address [address] [place] [address] Care Team Providers Care Soft Boarder Name Role Phone ALEX DOTSON Primary Care Provider ALEX DOTSON Referring Provider Assessment No assessment recorded. Plan of Treatment Reminders Order Date Submit Date Provider Last Modified By Organization Details Last Modified Time Details Appointments CYSTO-15 2023 11:00A M Demarco Bronson MD Not available Not available Not available Lab urinalysi s, dipstick 2022 023 [facility], [address] [facility], [address], 04/19/2023 09:56:28 urinalysi s, dipstick 2021 022 [facility], [address] [facility], [place], [address], 04/15/2022 17:03:31 urinalysi s, dipstick 2020 021 [facility], [address] [facility], [place], [address], 01/27/2021 11:08:59 Referral None recorded. Procedures None recorded. Surgeries None recorded. Imaging None recorded. Medication Orders clobetaso l 0.05 % topical cream [address] [facility] [address], [address] [place], [address], 04/19/2023 16:15:55 clobetaso l 0.05 % topical cream [id number] [facility] [address], [address] [place], [address], 04/19/2023 08:50:36 Patient TargetsNo targets recorded. Patient InstructionsNo instructions recorded. Reason for Referral None Reported. Results Created Date Observation Date Name Description Value Unit Range Abnormal Flag LastModifiedBy Organization Detail LastModifiedTime 01/28/2001/27/2021 urina lysis , dipst ick color -advantus yellow yellow Not Available [facility] [address] [place] [address], [place], [address], 01/27/2021 11:08:59 01/28/20 21 01/27/2021 urina lysis , dipst ick appearance -advantus clear clear Not Available [facility] [address] [place] [address], [place], [address], 01/27/2021 11:08:59 01/28/20 21 01/27/2021 urina lysis , dipst ick glucose -advantus negati ve mg/dL negati ve Not Available [facility] [address] [place] [address] [address], [place], [address], 01/27/2021 11:08:59 01/28/20 21 01/27/2021 urina lysis , dipst ick bilirubin -advantus negati ve negati ve Not Available [facility] [address] [place] [address] [address], [place], [address], 01/27/2021 11:08:59 01/28/20 21 01/27/2021 urina lysis , dipst ick ketones -advantus negati ve mg/dL negati ve Not Available [facility] [address] [place] [address] [address], [place], [address], 01/27/2021 11:08:59 01/28/20 21 01/27/2021 urina lysis , dipst ick sp. gravity -advantus <=1.00 5 1.010- 1.025 Not Available [facility] [address] [place] [address], [place], [address], 01/27/2021 11:08:59 01/28/20 21 01/27/2021 urina lysis , dipst ick pH -advantus 6.5 5.0-8. 0 Not Available [facility] [address] [place] [address], [place], [address], 01/27/2021 11:08:59 01/28/20 21 01/27/2021 urina lysis , dipst ick protein -advantus negati ve mg/dL negati ve Not Available [facility] [address] [place] [address] [address], [place], [address], 01/27/2021 11:08:59 01/28/20 21 01/27/2021 urina lysis , dipst ick urobilinogen -advantus 0.2 normal Not Available [facility] [address] [place] [address] [address], [place], [address], 01/27/2021 11:08:59 01/28/20 21 01/27/2021 urina lysis , dipst ick nitrites -advantus negati ve negati ve Not Available [facility] [address] [place] [address] [address], [place], [address], 01/27/2021 11:08:59 01/28/20 21 01/27/2021 urina lysis , dipst ick blood -advantus negati ve negati ve Not Available [facility] [address] [place] [address] [address], [place], [address], 01/27/2021 11:08:59 01/28/20 21 01/27/2021 urina lysis , dipst ick leukocytes -advantus small negati ve abnormal Not Available [facility] [address] [place] [address], [place], [address], 01/27/2021 11:08:59 01/28/20 21 01/27/2021 urina lysis , dipst ick performed by pham Vital Not Available [facility] [address] [place] [address] [address], [place], [address], 01/27/2021 11:08:59 01/28/20 21 01/27/2021 urina lysis , dipst ick total urine volume (mL) 40 /mL Not Available [facility] [address] [place] [address] [address], [place], [address], 01/27/2021 11:08:59 01/28/20 21 01/27/2021 urina lysis , micro scopi c U-WBC 0 - 2 [hpf] 0 - 2 Not Available [facility] [address] [place] [address] [address], [place], [address], 01/27/2021 11:09:03 01/28/20 21 01/27/2021 urina lysis , micro scopi c U-RBC 0 - 2 [hpf] 0 - 2 Not Available [facility] [address] [place] [address] [address], [place], [address], 01/27/2021 11:09:03 01/28/20 21 01/27/2021 urina lysis , micro scopi c bacteria small [hpf] negati ve abnormal Not Available [facility] [address] [place] [address] [address], [place], [address], 01/27/2021 11:09:03 01/28/20 21 01/27/2021 urina lysis , micro scopi c squamous epi small /lpf negati ve,sma ll Not Available [facility] [address] [place] [address] [address], [place], [address], 01/27/2021 11:09:03 04/15/20 22 04/15/2022 UA DIP CS ADVAN TUS color -advantus yellow yellow Not Available [facility] [address] [place] [address], [place], [address], 04/15/2022 17:03:31 04/15/20 22 04/15/2022 UA DIP CS ADVAN TUS appearance -advantus clear clear Not Available [facility] [address] [place] [address] [address], [place], [address], 04/15/2022 17:03:31 04/15/20 22 04/15/2022 UA DIP CS ADVAN TUS glucose -advantus negati ve mg/dL negati ve Not Available [facility] [address] [place] [address] [address], [place], [address], 04/15/2022 17:03:31 04/15/20 22 04/15/2022 UA DIP CS ADVAN TUS bilirubin -advantus negati ve negati ve Not Available [facility] [address] [place] [address] [address], [place], [address], 04/15/2022 17:03:31 04/15/20 22 04/15/2022 UA DIP CS ADVAN TUS ketones -advantus negati ve mg/dL negati ve Not Available [facility] [address] [place] [address] [address], [place], [address], 04/15/2022 17:03:31 04/15/20 22 04/15/2022 UA DIP CS ADVAN TUS sp. gravity -advantus 1.015 1.010- 1.025 Not Available [facility] [address] [place] [address] [address], [place], [address], 04/15/2022 17:03:31 04/15/20 22 04/15/2022 UA DIP CS ADVAN TUS pH -advantus 6.5 5.0-8. 0 Not Available [facility] [address] [place] [address] [address], [place], [address], 04/15/2022 17:03:31 04/15/20 22 04/15/2022 UA DIP CS ADVAN TUS protein -advantus negati ve mg/dL negati ve Not Available [facility] [address] [place] [address] [address], [place], [address], 04/15/2022 17:03:31 04/15/20 22 04/15/2022 UA DIP CS ADVAN TUS urobilinogen -advantus 0.2 normal Not Available [facility] [address] [place] [address] [address], [place], [address], 04/15/2022 17:03:31 04/15/20 22 04/15/2022 UA DIP CS ADVAN TUS nitrites -advantus negati ve negati ve Not Available [facility] [address] [place] [address] [address], [place], [address], 04/15/2022 17:03:31 04/15/20 22 04/15/2022 UA DIP CS ADVAN TUS blood -advantus negati ve negati ve Not Available [facility] [address] [place] [address] [address], [place], [address], 04/15/2022 17:03:31 04/15/20 22 04/15/2022 UA DIP CS ADVAN TUS leukocytes -advantus modera te negati ve abnormal Not Available [facility] [address] [place] [address] [address], [place], [address], 04/15/2022 17:03:31 04/15/20 22 04/15/2022 UA DIP CS ADVAN TUS performed by esperanza Simmons Not Available [facility] [address] [place] [address] [address], [place], [address], 04/15/2022 17:03:31 04/15/20 22 04/15/2022 UA DIP CS ADVAN TUS total urine volume (mL) 25 /mL Not Available [facility] [address] [facility] [address], [place], [address], 04/15/2022 17:03:31 04/15/20 22 04/15/2022 UA MICRO SCOPI C U-WBC 2 - 5 [hpf] 0 - 2 abnormal Not Available [facility] [address] [place] [address] [address], [place], [address], 04/15/2022 17:03:41 04/15/20 22 04/15/2022 UA MICRO SCOPI C U-RBC 0 - 2 [hpf] 0 - 2 Not Available [facility] [address] [place] [address] [address], [place], [address], 04/15/2022 17:03:41 04/15/20 22 04/15/2022 UA MICRO SCOPI C bacteria small [hpf] negati ve abnormal Not Available [facility] [address] [place] [address] [address], [place], [address], 04/15/2022 17:03:41 04/15/20 22 04/15/2022 UA MICRO SCOPI C squamous epi modera te /lpf negati ve,sma ll abnormal Not Available [facility] [address] [place] [address] [address], [place], [address], 04/15/2022 17:03:41 04/19/20 23 04/19/2023 UA WITHO UT MICRO - CS URISC AN blood - uriscan negati ve negati ve Not Available [facility] [address] [place] [address] [address], [place], [address], 04/19/2023 09:56:27 04/19/20 23 04/19/2023 UA WITHO UT MICRO - CS URISC AN bilirubin - uriscan negati ve mg/dL negati ve Not Available [facility] [address] [place] [address] [address], [place], [address], 04/19/2023 09:56:27 04/19/20 23 04/19/2023 UA WITHO UT MICRO - CS URISC AN urobilinogen - uriscan normal mg/dL normal Not Available [facility] [address] [facility] [address], [place], [address], 04/19/2023 09:56:27 04/19/20 23 04/19/2023 UA WITHO UT MICRO - CS URISC AN ketones - uriscan negati ve mg/dL negati ve Not Available [facility] [address] [place] [address] [address], [place], [address], 04/19/2023 09:56:27 04/19/20 23 04/19/2023 UA WITHO UT MICRO - CS URISC AN protein - uriscan negati ve mg/dL negati ve Not Available [facility] [address] [place] [address] [address], [place], [address], 04/19/2023 09:56:27 04/19/20 23 04/19/2023 UA WITHO UT MICRO - CS URISC AN nitrites - uriscan negati ve negati ve Not Available [facility] [address] [place] [address], [place], [address], 04/19/2023 09:56:27 04/19/20 23 04/19/2023 UA WITHO UT MICRO - CS URISC AN glucose - uriscan negati ve mg/dL negati ve Not Available [facility] [address] [place] [address] [address], [place], [address], 04/19/2023 09:56:27 04/19/20 23 04/19/2023 UA WITHO UT MICRO - CS URISC AN pH - uriscan 8.00 5.00-9 .00 Not Available [facility] [address] [place] [address] [address], [place], [address], 04/19/2023 09:56:27 04/19/20 23 04/19/2023 UA WITHO UT MICRO - CS URISC AN sp. gravity - uriscan 1.01 1.01-1 .03 Not Available [facility] [address] [facility] [address], [place], [address], 04/19/2023 09:56:27 04/19/20 23 04/19/2023 UA WITHO UT MICRO - CS URISC AN leukocytes - uriscan negati ve negati ve Not Available [facility] [address] [facility] [address], [place], [address], 04/19/2023 09:56:27 04/19/20 23 04/19/2023 UA WITHO UT MICRO - CS URISC AN color - uriscan yellow lt. yellow ;yello w Not Available [facility] [address] [facility] [address], [place], [address], 04/19/2023 09:56:27 04/19/20 23 04/19/2023 UA WITHO UT MICRO - CS URISC AN clarity - uriscan clear clear Not Available [facility] [address] [facility] [address], [place], [address], 04/19/2023 09:56:27 04/19/2004/19/2023 UA WITHO UT MICRO - CS URISC AN total urine volume (mL) 40 /mL Not Available [facility] [address] [place] [address], [place], [address], 04/19/2023 09:56:27 Result Notes None recorded. Problems Name Status Onset Date Resolution Date Notes Provider Name and Address Organization Details Recorded Time Microscopic hematuria Active 019 R31.21 : Microscopic hematuria Not Available [facility] 0 00:18:24 Abdominal pain Active 019 R10.9 : Abdominal pain Not Available [facility] 0 00:18:24 Malignant neoplasm of lateral wall of urinary bladder Active 019 C67.2 : Malignant neoplasm of lateral wall of urinary bladder Not Available [facility] 0 00:18:24 Problem Notes None recorded. Procedures Surgical History Date Name Laterality Status Provider Name and Address Organization Details Recorded Time 023 CystoscopyFemale completed Jenn Eli null, [facility] 04/14/2023 09:38:41 022 CystoscopyFemale completed Demarco Bronson MD [address] [facility], [place], [address], [facility] 04/15/2022 16:07:08 022 Urinalysis completed Demarco Bronson MD [address] [facility], [place], [address], [facility] 04/15/2022 16:07:08 022 Diagnostic colonoscopy completed Not Available [facility] 04/19/2023 08:50:32 021 CystoscopyFemale completed Demarco Bronson MD [address] [facility], [place], [address], [facility] 01/27/2021 11:17:51 021 [facility] 01/27/2021 10:41:26 019 Cystoscopy completed Not Available [facility] 01/24/2020 17:31:30 019 Removal of thyroid completed Not Available [facility] 01/24/2020 17:31:30 019 Cystoscopy and treatment completed Not Available [facility] 01/24/2020 17:31:30 019 Cystoscopy completed Not Available [facility] 01/24/2020 17:31:30 Removal of gallbladder completed Not Available [facility] 01/24/2020 17:31:30 Hip arthr0 w/synovectomy completed Not Available [facility] 01/24/2020 17:31:30 Knee arthroscopy/surgery completed Not Available [facility] 01/24/2020 17:31:30 Total hysterectomy completed Not Available [facility] 01/24/2020 17:31:30 Imaging Results None recorded. Procedure Notes None recorded. Medical Equipment None Reported. Allergies Allergen ID Allergen Name Allergen Category Reaction Reaction Severity Criticality Documentation Date Start Date Code Code System Note Provider Name and Address Organization Details Recorded Time Penicilli n Not available Not available Not available Not available 01/23/2020 77018 RxNorm Not Available [facility] 23:50:33 No known drug allergies Medications Name Sig Start Date Stop Date Status Note LastModified by Organization Details LastModified Time ondansetr on HCl 4 mg tablet TAKE 1 TABLET BY MOUTH EVERY 6 HOURS NEEDED 01/27 completed Not Available Not Available Not Available clobetaso l 0.05 % topical cream APPLY A THIN LAYER TOPICALL Y TO AFFECTED AREA(S) TWICE DAILY active Not Available Not Available No t Available clindamyc in HCl 150 mg capsule TAKE FOUR CAPSULES BY MOUTH 30-60 MINUTES BEFORE PROCEDUR E. 04/19 completed HN: Patient reports no longer taking Not Available Not Available Not Available triamcino lone acetonide 0.1 % topical cream APPLY CREAM TOPICALL Y TO AFFECTED AREA TWICE DAILY NEEDED 04/15 completed Not Available Not Available Not Available terbinafi ne HCl 250 mg tablet TAKE 1 TABLET BY MOUTH ONCE DAILY 04/19 completed HN: Patient reports no longer taking Not Available Not Available Not Available alprazola m 0.25 mg tablet TAKE 1 TABLET BY MOUTH THREE TIMES DAILY NEEDED 04/19 completed HN: Patient reports no longer taking Not Available Not Available Not Available fluocinon laurel 0.05 % topical solution APPLY SOLUTION TOPICALL Y TWICE DAILY active Not Available Not Available No t Available itraconaz ole 100 mg capsule TAKE 2 CAPSULES BY MOUTH TWICE DAILY FOR 7 DAYS OF EACH MONTH FOR 3 MONTHS TOTAL 04/19 completed HN: Patient reports no longer taking Not Available Not Available Not Available finasteri de 5 mg tablet TAKE 1/2 (ONE-KIM F) TABLET BY MOUTH ONCE DAILY active Not Available Not Available No t Available hydroxyzi ne pamoate 25 mg capsule TAKE 1 TO 2 CAPSULES BY MOUTH THREE TIMES DAILY NEEDED FOR ANXIETY active Not Available Not Available No t Available Wegovy 0.25 mg/0.5 mL subcutane ous pen injector 04/19 completed HN: Patient reports no longer taking Not Available Not Available Not Available Vitals Date Recorded Body weight Body mass index (BMI) Body height Provider Name and Address Organization Details Last Updated DateTime 04/19/2023 231308.4784 29354 g 44.6 kg/m2 180.34 cm Not Available Health Note 04/19/2023 09:43:22 Date Recorded Body height Body mass index (BMI) Body weight Provider Name and Address Organization Details Last Updated DateTime 01/27/2021 180.34 cm 38.4 kg/m2 100749.9 g Harper Rojas [facility] 01/27/2021 10:39:17 Social History Question Answer Notes LastModified by Organizat ion Details LastModified Time Tobacco Smoking Status Former Smoker Not Available Health Note 04/19/2023 08:50:33 What Is Your Level Of Alcohol Consumption? None Information not available 04/19/2023 What Is Your Level Of Caffeine Consumption? Moderate [email or web address] Information not available 04/19/2023 How Much Tobacco Do You Chew? None [email or web address] Information not available 04/19/2023 Do You Or Have You Ever Used E-cigarettes Or Vape? Never Used Electronic Cigarettes [email or web address] Information not available 04/19/2023 When Did You Quit Smoking? 16+yearssincel astcivan Information not available 04/19/2023 Race White Information n ot available 01/24/2020 Ethnicity Not /Latin o Information not available 01/27/2021 Preferred Language Azeri Information not available 01/27/2021 Number Of Pregnancies 1 [email or web address] Information not available 04/19/2023 Number Of Vaginal Deliveries 1 [email or web address] Information not available 04/19/2023 Number Of Caesarean Sections 0 [email or web address] Information not available 04/19/2023 Could You Be ? No [email or web address] Information not available 04/19/2023 Marital Status Informati on not available 01/24/2020 What Was The Date Of Your Most Recent Tobacco Screening? 04/19/2023 [email or web address] Information not available 04/19/2023 What Is Your Relationship Status? [email or web address] Information not available 04/19/2023 Are You Sexually Active? No [email or web address] Information not available 04/19/2023 Do You Or Have You Ever Used Smokeless Tobacco? Never Used Smokeless Tobacco [email or web address] Information not available 04/19/2023 Do You Use Any Illicit Or Recreational Drugs? No [email or web address] Information not available 04/19/2023 Has Tobacco Cessation Counseling Been Provided? Yes Information not available 04/19/2023 On What Date Was Tobacco Cessation Counseling Provided? 04/19/2023 Information not available 04/19/2023 How Many Years Have You Smoked Tobacco? 15 [email or web address] Information not available 04/19/2023 Do You Or Have You Ever Used Any Other Forms Of Tobacco Or Nicotine? No Information not available 04/19/2023 How Many Days In The Past Year Have You Consumed 4 Or More Drinks? 0 [email or web address] Information no t available 04/19/2023 Sex: Female Functional Status None recorded. Mental Status None recorded. Family History Nothing Reported. Medical History Condition Response Sexually Transmitted Infection N Diabetes N Other N Bleeding Disorder N High Blood Pressure N Kidney Stones N High Cholesterol N GERD/Acid Reflux N Heart Disease N Cancer Y Lung Disease N Depression N Gynecological HistoryNo gynecological history recorded. Obstetrics History GPAL:G 0 P 0 0 0 0 Immunizations Vaccine Type Date Status Provider Name and Address Organization Details Recorded Time SARS-COV-2 (COVID-19) vaccine, UNSPECIFIED 2021 [facility] 09:43:49 influenza, unspecified formulation 05/15/2022 [facility]23 09:43:49 influenza, recombinant, quadrivalent,inject able, preservative free 05/22/2020 completed Harper bower [facility] 04/19/2023 09:43:49 influenza, recombinant, quadrivalent,inject able, preservative free 05/25/2019 completed Harper bower [facility] 04/19/2023 09:43:49 zoster recombinant 12/13/2018 completed Harper bower [facility] 04/19/2023 09:43:49 zoster recombinant 06/21/2019 [facility] 04/19/2023 09:43:49 COVID-19, mRNA, LNP-S, PF, 100 mcg/0.5mL dose or 50 mcg/0.25mL dose 10/31/2020 completed Harper Granero null, [facility] 04/19/2023 09:43:49 COVID-19, mRNA, LNP-S, PF, 100 mcg/0.5mL dose or 50 mcg/0.25mL dose 11/28/2020 completed Harper Granero null, [facility] 04/19/2023 09:43:49 COVID-19, mRNA, LNP-S, PF, 100 mcg/0.5mL dose or 50 mcg/0.25mL dose 08/02/2021 completed Harper Granero null, [facility] 04/19/2023 09:43:49 Tdap 02/03/2019 completed Harper Granero null, [facility] 04/19/2023 09:43:49 Tdap 06/06/2012 completed Harper Granero null, [facility] 04/19/2023 09:43:49 Influenza, seasonal, injectable 06/06/2012 [facility] 09:43:49 Influenza, seasonal, injectable 06/07/2011 [facility]23 09:43:49 Influenza, seasonal, injectable 06/08/2010 [facility] 04/19/2023 09:43:49 Td (adult), 2 Lf tetanus toxoid, preservative free, adsorbed 01/29/2004 completed Harper Liuero null, [facility] 04/19/2023 09:43:49 influenza, injectable, quadrivalent, preservative free 05/08/2013 completed Harper Granero null, [facility] 04/19/2023 09:43:49 influenza, injectable, quadrivalent, preservative free 05/17/2017 completed Harper Granero null, [facility] 04/19/2023 09:43:49 influenza, injectable, quadrivalent, preservative free 05/25/2016 [facility] 04/19/2023 09:43:49 influenza, injectable, quadrivalent, preservative free 06/03/2015 [facility] 04/19/2023 09:43:49 influenza, injectable, quadrivalent, preservative free 06/04/2014 completed Harper bower [facility] 04/19/2023 09:43:49 Past Encounters Encounter ID Performer Location Encounter Start Date Encounter Closed Date Diagnosis/Indication [id number] [facility] [address] [place] [address],[address] [address] 01/27/2021 10:15:50 01/27/2021 12:06:11 Malignant neoplasm of lateral wall of urinary bladder [id number] [facility] [address] [place] [address],[address] [address] 04/15/2022 15:40:14 04/16/2022 09:58:22 Malignant neoplasm of lateral wall of urinary bladder Genital lichen sclerosus [id number] Demarco Bronson MD [facility] ry [address] [place] [address],[address] [address] 04/19/2023 09:40:29 04/19/2023 11:45:35 Malignant neoplasm of lateral wall of urinary bladder Genital lichen sclerosus Health Concerns Section Related Observation LastModified by Organization Detai ls LastModified Time None Recorded Concern Status LastModified by Organization Details LastModified Time None Recorded Advance Directives Directive None Recorded Payers Encounter Date Sequence Insurance Name Policy Number Policy Milton Covered Member ID Milton Member ID Guarantor Name 04/19/2023 1 PREFERREDONE (PPO) [id number] Annalisa Christiansen Cecil [id number] Annalisa Christiansen Cecil 04/15/2022 1 PREFERREDONE (PPO) [id number] Annalisa L Cecil [id number] Annalisa Tal Jacob 01/27/2021 1 PREFERREDONE (PPO) [id number] Annalisa Christiansen Jacob [id number] Annalisa Christiansen Jacob Notes Date Note Type Note Provider Name and Address Organization Details Recorded Time 01/27/2021 text/html HPI Notes: Savita christiansen is a 60-year-old female who is here for follow-up of bladder cancer. She had a 2 mm low-grade urothelial tumor treated on the left lateral wall in February 2019. Demarco Bronson MD [address] [place] [address],[address], [address], [facility] 01/27/2021 11:18:20 04/15/2022 text/html HPI Notes: Savita christiansen is a 61 -year-old female who is here for follow-up of bladder cancer. She had a 2 mm low-grade urothelial tumor treated on the left lateral wall in February 2019. She also has a history of lichen sclerosis for which she has been using steroid cream intermittently. It has been over a year since she used this last and she has noted a recurrence of some of the symptoms Demarco Bronson MD [address] [place] [address],[address], [address], [facility] 04/15/2022 16:14:19 04/19/2023 text/html HPI Notes: Savita christiansen is a 62 -year-old female who is here for follow-up of bladder cancer. She had a 2 mm low-grade urothelial tumor treated on the left lateral wall in February 2019. She also has a history of lichen sclerosis for which she has been using steroid cream intermittently. It has been over a year since she used this last and she has noted a recurrence of some of the symptoms The documentation for this visit was created with the assistance of Jenn Eli, medical device assembler Demarco Bronson MD [address] [place] [address],[address], [place], [address], [facility] 04/19/2023 09:58:25 OBGyn Episode No OBEpisode recorded.
--- OUTSIDE RECORDS SUMMARY | 2023-08-26 10:14 | XMS_ITS | Encounter Summary ---
Author Name Unknown Organization [facility] Address [address] [place] [address] Care Team Providers Care Cash Clerk Name Role Phone Pam Waltres MD Primary Care Provider [phone] Taty Jacob Primary Care Provider [phone] Encounter Details Date Type Department Care Team (Late st Contact Info) Description 05/11/2013 [facility] Medical Advice [address] [address] Pam Walters MD [address] [place] [id number] Social History Tobacco Use Types Packs/Day Years [...] on filedocumented in this encounter Care Teams Cash Clerk Relationship Specialty Start Date End Date Pam Walters MD PCP - General Family Practice 03/12/10 10/10/13 Taty Jacob [facility] [address] [place] [address] PCP - General Nurse Practitioner 10/11/13 documented as of this encounter
--- OUTSIDE RECORDS SUMMARY | 2023-08-26 10:14 | XMS_ITS | Clinical Summary ---
Author Name Unknown Organization [facility] Address [address] [place] [address] Care Team Providers Care Cement [employer] Name Role Phone Taty Jacob Primary Care Provider [phone] Allergies Active Allergy Reactions Criticality Noted Date Comments Latex 12/17/2009 Rash, redness, swelling Penicillins 12/13/2003 Medications Medication Sig Dispensed Refills Start Date End Date Status MULTI-VITAMIN OR TABS ONE TABLET DAILY 3 12/17/2009 Active CALCIUM + D 600-200 MG-UNIT PO TABS ONE TABLET DAily WITH MEALS 0 12/17/2009 Active ibuprofen (ADVIL,MOTRIN) 800 MG tabletIndications:N robin pain Take 1 tablet by mouth every 8 hours as needed for pain. 100 tablet 0 03/09/2011 Active Glucosamine-Chondro it-Vit C-Mn (GLUCOSAMINE 1500 COMPLEX) CAPS Take by mouth. 0 11/08/2011 Active cholecalciferol (VITAMIN D) 1000 UNIT tablet Take 1 tablet by mouth daily. 0 11/08/2011 Active fish oil-omega-3 fatty acids (FISH OIL) 1000 MG capsule Take 3 capsules by mouth daily. Pt is taking 3000 mg total per day 0 11/08/2011 Active Minoxidil (ROGAINE EX) Externally apply topically. 0 Active docusate sodium 100 MG tablet Take 100 mg by mouth 2 times daily 60 tablet 1 09/13/2013 Active polyethylene glycol (MIRALAX) powderIndications:C onstipation Take 17 g by mouth daily as needed 510 g 1 09/13/2013 Active Active Problems Problem Noted Date Diagnosed Date Right hip pain 06/04/2013 Osteoarthritis of both hips 06/04/2013 Weight loss, intentional 03/16/2013 S/P hysterectomy 03/04/2013 Basal cell carcinoma of multiple sites 3 Abnormal glucose 12/15/2012 Overview: Problem list name updated by automated process. Provider to review Alopecia 12/06/2012 Lumbago 11/21/2012 Left hip pain 11/21/2012 SI (sacroiliac) joint dysfunction 11/08/2012 Tubular adenoma 11/08/2011 Hyperplastic colon polyp 11/08/2011 Obesity, Class III, BMI 40-49.9 (morbid obesity) 11/08/2011 Anxiety 08/31/2010 Achilles bursitis or tendinitis 06/17/2010 CARDIOVASCULAR SCREENING; LDL GOAL LESS THAN 160 06/14/2010 Elevated blood pressure read ing without diagnosis of hypertension 01/02/2009 Backache 02/14/2006 Overview: Problem list name updated by automated process. Provider to review Pain in limb 02/14/2006 Resolved Problems Problem Noted Date Diagnosed Date Resolved Date Sacroiliac strain 05/24/2012 06/28/2012 Pain in joint, pelvic region and thigh 05/14/2010 06/04/2010 Aftercare following joint replacement 01/13/2010 03/04/2010 Knee joint replacement by other means 01/13/2010 03/04/2010 Achilles tendinitis 03/08/2008 04/18/20 08 Tobacco use disorder 02/04/2005 009 Obesity 02/04/2005 12/06/2012 Overview: Problem list name updated by automated process. Provider to review Immunizations Name Administration Dates Next Due Influenza (IIV3) PF 06/06/2012,06/15/2008 TD,PF 7+ (Tenivac) 07/15/2003 TDAP (Adacel,Boostrix) 06/06/2012 Family History Medical History Relation Comments Obesity Brother 1 Respiratory Father sarcoidosis Cancer Maternal Grandfather at 50's-60's YOA, stomach CA Neurologic Disorder Maternal Grandmother d at 80's, had alzheimer's Family History Negative Mother Cancer Paternal Grandfather 60 's of lung CA,smoker C.A.D. Paternal Grandmother la te 30's of [place] Obesity Sister 1-HTN Breast Cancer No family [...] 0.6 oz pur e alcohol) very little Adolescent Education Answer Date Record ed Getting School Help Needed Not on file 05/15 Sex and Gender Information Value Date Recorded Sex Assigned at Not on file Gender Identity Not on file Sexual Orientation Not on file Last Filed Vital Signs Vital Sign Reading Time Taken Comments Blood Pressure 130/83 10/11/2013 9:46 AM BLACK TOP RAKER Pulse 77 10/11/2013 9:46 AM BLACK TOP RAKER Temperature 36.8 ??C (98.3 ??F) 10/11/2013 9:46 AM CS T Respiratory Rate 18 10/11/2013 9:46 AM BLACK TOP RAKER Oxygen Saturation 99% 10/11/2013 9:46 AM BLACK TOP RAKER Inhaled Oxygen Concentration - - Weight 117.9 kg (260 lb) 10/11/2013 9:46 AM BLACK TOP RAKER Height 180.3 cm (5' 11) 10/11/2013 9:46 AM BLACK TOP RAKER Body Mass Index 36.26 10/11/2013 9:46 AM BLACK TOP RAKER Plan of Treatment Health Maintenance Due Date Last Done Comments ADVANCE CARE PLANNING 1960 ANNUAL REVIEW OF HM ORDERS 1958 CT COLONOGRAPHY 1958 FIT 1958 FLEX SIG 1960 sDNA (Cologuard) 1960 COVID-19 Vaccine (#1) 05/20/1959 HIV SCREENING 1973 HEPATITIS C SCREENING 1976 LUNG CANCER SCREENING 2008 YEARLY PREVENTIVE VISIT 11/07/2012 11/08/19 12, 12/04/2008, 02/11/2006, Additional history exists DEXA 11/15/2014 11/16/2011, 05/16, 04/12/2006, Additional history exists MAMMO SCREENING 03/22/2015 03/22/2013, 01/14, 02/04/2011, Additional history exists LIPID 12/07/2017 12/07/2012, 10/14, 12/17/2009, Additional history exists RSV VACCINE ( & 60+) (1 - 1-dose 60+ series) 2018 ZOSTER IMMUNIZATION (2 of 2) 02/07/2019 12/13/2018 COLONOSCOPY 12/02/2021 12/03/2011, 03/03/2009 COLORECTAL CANCER SCREENING 12/02/2021 DTAP/TDAP/TD IMMUNIZATION (2 - Td or Tdap) 06/06/2022 06/06/2012, 01/29/2004, 07/15/2003 INFLUENZA VACCINE (#1) 2023 7, 05/25/2016, 06/03/2015, Additional history exists PHQ-2 (once per calendar year) 2023 PAP Discontinued 12/04/2008, 01/15, 12/04/2002, Additional history exists HPV IMMUNIZATION Aged Out No longer e ligible based on patient's age to complete this topic IPV IMMUNIZATION Aged Out No longer e ligible based on patient's age to complete this topic MENINGITIS IMMUNIZATION Aged Out No l onger eligible based on patient's age to complete this topic Pneumococcal Vaccine: Pediatrics (0 to 5 Years) and At-Risk Patients (6 to 64 Years) Aged Out No longer eligible based on patient's age to complete this topic RSV MONOCLONAL ANTIBODY Aged Out No l onger eligible based on patient's age to complete this topic Care Teams [employer] Relationship Specialty Start Date End Date Taty Jacob [facility] [address] [place] [address] PCP - General Nurse Practitioner 10/11/13
--- OUTSIDE RECORDS SUMMARY | 2023-08-26 10:14 | XMS_ITS | Clinical Summary ---
Author Name Unknown Organization [facility] Address [place], [place] [address] Care Team Providers Care Facing Slitter Name Role Phone Jordan Flood Phys Of Primary Care Provider Un available Allergies Active Allergy Reactions Criticality Noted Date Comments Latex Rash 12/17/2009 Rash, redness, swelling Penicillins Anaphylaxis High 02/03/2019 Medications Medication Sig Dispensed Refills Start Date End Date Status finasteride (PROSCAR) 5 mg tablet Take 2.5 mg by mouth once daily. 0 12/18/2021 Active multivitamin capsuleIndications:His tory of colon polyps,Polyp of colon, unspecified part of colon, unspecified type Take 1 Capsule by mouth once daily. 0 03/18/2022 Active Active Problems Problem Noted Date Diagnosed Date Colon polyp 03/23/2022 Overview: Colonoscopy 03/2022 TA, repeat in 5 years, [facility]rap at [facility] Immunizations Name Administration Dates Next Due Tdap 02/03/2019 Social History Tobacco Use Types Packs/Day Years Used Date Smoking Tobacco: Former Smokeless Tobacco: Never Tobacco Cessation:Counseling Given: Yes Sex and Gender Information Value Date Recorded Sex Assigned at Not on file Gender Identity Not on file Sexual Orientation Not on file Obstetrics History Last Filed Vital Signs Vital Sign Reading Time Taken Comments Blood Pressure 155/85 02/03/2019 6:39 PM CDT Pulse 77 02/03/2019 6:39 PM CDT Temperature 36.5 ??C (97.7 ??F) 02/03/2019 6:39 PM CD T Respiratory Rate 16 02/03/2019 6:39 PM CDT [...] and wt on same day) for age 18+ 1976 Hepatitis C screening for ag e 18-79 1976 Pap test for age 21-65 11/19/1979 Lipids for age 45-75 11/19/2003 Mammogram for age 45-75 11/19/2003 Zoster (shingles) series for age 50+ (1 of 2) 2008 COVID-19 vaccine series (2022- season) 2023 08/02/2021, 11/28/2020, 10/31/2020 Influenza for age 50-64 04/15/2023 Colonoscopy through age 75 03/18/202703/18, 03/18/2022, 03/18/2022 Tetanus booster 02/03/2029 02/03/2019 Tdap Completed 02/03/2019 Pneumococcal series for age 6-64 Aged Out No longer eligible b ased on patient's age to complete this topic Care Teams Facing Slitter Relationship Specialty Start Date End Date Jordan Flood Phys Of PCP - General 02/03/19
--- OUTSIDE RECORDS SUMMARY | 2023-08-26 10:14 | XMS_ITS | Encounter Summary ---
Author Name Unknown Organization [facility] Address [address] [place] [address] Care Team Providers Care Lifter/Driver Name Role Phone Pam Walters MD Primary Care Provider [phone] Taty Jacob Primary Care Provider [phone] Encounter Details Date Type Department Care Team (Late st Contact Info) Description 01/24/2012 [facility] [address] [address] [facility] Social History Tobacco Use Types Packs/Day Years [...] on filedocumented in this encounter Care Teams Lifter/Driver Relationship Specialty Start Date End Date Pam Walters MD PCP - General Family Practice 03/12/10 10/10/13 Taty Jacob [facility] [address] [place], [place] [id number] PCP - General Nurse Practitioner 10/11/13 documented as of this encounter
--- OUTSIDE RECORDS SUMMARY | 2023-08-26 10:14 | XMS_ITS | Encounter Summary ---
Author Name Unknown Organization [facility] Address [address] [place] [address] Care Team Providers Care Vulnerability Assessment Analyst Name Role Phone Pam Walters MD Primary Care Provider Taty Jacob Primary Care Provider [phone] Encounter Details Date Type Department Care Team (Late st Contact Info) Description 11/23/2011 [facility] [address] [address] [facility] Social History Tobacco Use Types Packs/Day Years [...] on filedocumented in this encounter Care Teams Vulnerability Assessment Analyst Relationship Specialty Start Date End Date Pam Walters MD PCP - General Family Practice 03/12/10 10/10/[address] [facility] [address] [place], [place] [id number] PCP - General Nurse Practitioner 10/11/13 documented as of this encounter
--- OUTSIDE RECORDS SUMMARY | 2023-08-26 10:14 | XMS_ITS | Encounter Summary ---
Author Name Unknown Organization [facility] Address [address] [place] [address] Care Team Providers Care Vibrating Screen Operator Name Role Phone Taty Jacob Primary Care Provider [phone] Encounter Details Date Type Department Care Team (Late st Contact Info) Description 01/29/2017 Telephone [facility] [address] [place] [address] Emma Galeana RN Social History Tobacco Use Types Packs/Day Years [...] documented as of this encounter Miscellaneous Notes * Telephone Encounter - Emma Galeana RN - 01/29/2017 8:43 AM CDT FNA Triage Call Presenting Problem:I have had knee and hip replacements and before a dental procedure I need an RX for an antibiotic.I always get it from the dentist. I do not have any refill on this RX. Patient Recommendations/Teaching: Pt will call dental emergency number Routed to:none Emma Galeana RN [facility] documented in this encounter Plan of Treatment Not on file documented as of this encounter Visit Diagnoses Not on filedocumented in this encounter Care Teams Vibrating Screen Operator Relationship Specialty Start Date End Date Taty Jacob [facility] [address] [place] [address] PCP - General Nurse Practitioner 10/11/13 documented as of this encounter
--- OUTSIDE RECORDS SUMMARY | 2023-08-26 10:14 | XMS_ITS | Referral Summary ---
Author Name Unknown Organization [facility] Address [address] [place] [address] Care Team Providers Care Destination Imagination Coordinator Name Role Phone Taty Jacob Primary Care Provider [phone] Allergies Active Allergy Reactions Criticality Noted Date [...] TD,PF 7+ (Tenivac) 07/15/2003 TDAP (Adacel,Boostrix) 06/06/2012 Social History Tobacco Use Types Packs/Day Years [...] Comments Blood Pressure 130/83 10/11/2013 9:46 AM SHAREPOINT CONSULTANT Pulse 77 10/11/2013 9:46 AM SHAREPOINT CONSULTANT Temperature 36.8 ??C (98.3 ??F) 10/11/2013 9:46 AM CS T Respiratory Rate 18 10/11/2013 9:46 AM SHAREPOINT CONSULTANT Oxygen Saturation 99% 10/11/2013 9:46 AM SHAREPOINT CONSULTANT Inhaled Oxygen Concentration - - Weight 117.9 kg (260 lb) 10/11/2013 9:46 AM SHAREPOINT CONSULTANT Height 180.3 cm (5' 11) 10/11/2013 9:46 AM SHAREPOINT CONSULTANT Body Mass Index 36.26 10/11/2013 9:46 AM SHAREPOINT CONSULTANT Plan of Treatment Not on file Care Teams Destination Imagination Coordinator Relationship Specialty Start Date End Date Taty Jacob [facility] [address] [place], [place] [phone] PCP - General Nurse Practitioner 10/11/13
== END 2023-08-26 10:12 | disposition home or self-care (01) ==
PROVIDERS: PCP Physician Assistant Medical; Visit Provider Physician Assistant Medical
DX: Z00.00 Encounter for general adult medical examination without abnormal findings (principal); E05.90 Thyrotoxicosis, unspecified without thyrotoxic crisis or storm; E66.01 Morbid (severe) obesity due to excess calories; I10 Essential (primary) hypertension; Z13.6 Encounter for screening for cardiovascular disorders
CPT/HCPCS: 80053; 80061; 84443

== ENCOUNTER 2023-09-25 11:27 | Emergency (ER) | payer BC, SELFPAY ==
[2023-09-25 11:34] VITALS: BP 112/63; PULSE 80; RESP 20; TEMP 36.2; O2SAT 97; BMI 43.2
--- NOTE | 2023-09-25 12:33 | ED.GENADULT ---
HPI - General Adult General Chief complaint: Skin/Abscess/Foreign Body Stated complaint: R leg wound Time Seen by Provider: 09/25/23 12:15 History of Present Illness HPI narrative: This 62-year-old female comes in for checkup of a wound on the posterior aspect of her right lower leg. She was in to dermatology appointment and had a punch biopsy done. She was told there were some spider veins in this area and part of the repair the wound involved cautery. The patient has been doing well but today she removed the bandage and the scab over the wound came off and there was a burst of blood that was discharged. She thought that it may have been coming from 1 of those veins. She does not report any other symptoms. At the time of my visit there is no active bleeding in the wound appears to be healing properly without any sign of infection or drainage. Related Data Home Medications Medication Instructions Recorded Confirmed cetirizine 10 mg tablet 10 mg PO DAILY 07/27/22 09/22/23 cholecalciferol (vitamin D3) 125 125 mcg PO DAILY 07/27/22 09/22/23 mcg (5,000 unit) tablet clobetasol 0.05 % topical cream 1 applic topical QDAY 08/26/23 09/22/23 lysine 500 mg tablet (L-Lysine) 1,000 mg PO QDAY 08/26/23 09/22/23 niacinamide 500 mg tablet 1,000 mg PO QDAY 08/26/23 09/22/23 Previous Rx's Medication Instructions Recorded finasteride 5 mg tablet 2.5 mg (1/2 x 5 mg) PO QDAY #90 08/10/22 tabs triamcinolone acetonide 0.1 % 1 applic topical BID #80 grams 07/21/23 topical cream hydroxyzine pamoate 25 mg capsule 25 - 50 mg (1 - 2 x 25 mg) PO TID 08/26/23 PRN anxiety #90 caps Allergies Allergy/AdvReac Type Severity Reaction Status Date / Time Penicillins Allergy Severe Difficulty Verified 09/22/23 14:44 Breathing latex Allergy Intermediate Rash Verified 09/22/23 14:44 Review of Systems Status of ROS: Reports: 10 or more systems reviewed and unremarkable except as noted in History and below Narrative: Constitutional: No fevers, no weight gain or loss. Eyes: No discharge. No vision changes. HENT: No congestion, no sore throat, no ear pain. Cardiovascular: No chest pain, no palpitations. Respiratory: No shortness of breath, no wheezes, no cough. Gastrointestinal: No abdominal pain, no vomiting, no diarrhea. Genitourinary: No dysuria, no hematuria. Musculoskeletal: Normal range of motion. Skin: No rashes, no pruritis. Neurological: No dizziness, weakness, sensory change, speech change. Endo/Heme/Allergies: No bruising or bleeding. No polydipsia. Pysch: no suicidality, no anxiety, no insomnia. All other systems reviewed and are negative. 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 - Personal history of neoplasm of uncertain behavior (ICD-10) Surgical History (Updated 07/27/22 @ 08:21 by Gary Hill PA-C) History of colonoscopy ?Z98.890 - Other specified postprocedural states (ICD-10) History of total knee arthroplasty ?Z96.659 - Presence of unspecified artificial knee joint (ICD-10) History of total hip arthroplasty ?Z96.649 - Presence of unspecified artificial hip joint (ICD-10) Status post total left knee replacement ?Z96.652 - Presence of left artificial knee joint (ICD-10) Status post partial thyroidectomy ?E89.0 - Postprocedural hypothyroidism (ICD-10) Status post parathyroidectomy ?E89.2 - Postprocedural hypoparathyroidism (ICD-10) History of hysterectomy ?Z90.710 - Acquired absence of both cervix and uterus (ICD-10) History of cholecystectomy ?Z90.49 - Acquired absence of other specified parts of digestive tract (ICD-10) Social History (Updated 08/29/23 @ 09:33 by Ayse Pandey ~ [facility]) Narrative: former smoker What is your current living situation?: I presently have a place to live Problems where you live: no known problems In the past 12 months, utilities in danger of being shut off: no In the past 12 mos, have been you worried that your food would run out before you had money to buy more?: never true In the past 12 mos, the food you bought just didn't last and you didn't have money to buy more?: never true Smoking Status: Never smoker Do you use any of these nicotine containing products: None Second hand tobacco smoke exposure: No How often do you have a drink containing alcohol: never How many standard drinks containing alcohol do you have on a typical day: 1 or 2 AUDIT-C Alcohol total score: 0 Non-prescribed substance use: denies use How often does anyone, including family, friends and others, physically hurt you: never How often does anyone, including family, friends and others, insult or talk down to you: rarely How often does anyone, including family, friends and others, threaten you with harm: never How often does anyone, including family, friends and others, scream or curse at you: never Little interest or pleasure in doing things: not at all Feeling down, depressed, or hopeless: not at all service: No Exam Narrative: Exam Narrative: Constitutional: Well-developed, well-nourished, no acute distress. HEENT: Normocephalic, atraumatic. Neck: Normal range of motion. Nontender. Supple. Heart: Intact distal pulses. Lungs: No chest discomfort. No wheezes, rhonchi, or rales. Abdomen: Nontender. Back: Normal range of motion. Extremities: Normal range of motion. Punch biopsy site on the posterior aspect of her right calf appears to be healing normally with no active bleeding. Skin: Intact. No rash. Warm. No erythema or pallor. Neurologic: No altered sensation. No weakness. Alert and oriented. Psychiatric: No suicidality. No anxiety or depression. No insomnia. Nursing notes and vitals signs are reviewed. Const: Vital Signs, click to edit/add: Vital Signs - 24 hr 09/25/23 11:34 Temperature 97.1 F L Pulse Rate [Pulse Oximeter] 80 Respiratory Rate 20 Blood Pressure [Ri ght Upper Arm] 112/63 Pulse Oximetry 97 Oxygen Delivery Me thod Room Air Course Vital Signs Vital signs: Initial Vital Signs Temperature 97.1 F L 09/25/23 11:34 Temperature Source Temporal Artery Scan 09/25/23 11:34 Pulse Rate 80 09/25/23 11:34 Pulse Rhythm Regular 09/25/23 11:34 Respiratory Rate 20 09/25/23 11:34 Blood Pressure 112/63 09/25/23 11:34 Blood Pressure Mean 79 09/25/23 11:34 Blood Pressure Position Sitting 09/25/23 11:34 Pulse Oximetry 97 09/25/23 11:34 Oxygen Delivery Method Room Air 09/25/23 11:34 Vital Signs Temperature 97.1 F L 09/25/23 11:34 Pulse Rate 80 09/25/23 11:34 Respiratory Rate 20 09/25/23 11:34 Blood Pressure 112/63 09/25/23 11:34 Pulse Oximetry 97 09/25/23 11:34 Oxygen Delivery Method Room Air 09/25/23 11:34 Temperature 97.1 F L 09/25/23 11:34 Pulse Rate 80 09/25/23 11:34 Respiratory Rate 20 09/25/23 11:34 Blood Pressure 112/63 09/25/23 11:34 Pulse Oximetry 97 09/25/23 11:34 Oxygen Delivery Method Room Air 09/25/23 11:34 Medical Decision Making MDM Narrative Medical decision making narrative: This patient comes in with concern about some bleeding that occurred when the dressing was changed on the punch biopsy site of her right calf. At the time of my visit there is no active bleeding in the wound appears to be healing properly. When palpating around the wound there is no palpable evidence of hematoma or seroma. The patient is not having any particular pain in this area and there is not any sign of infection or purulent drainage. Reassurance is were given to the patient. The wound was redressed with a nonstick dressing followed by a light pressure dressing. Instructions were given regarding ongoing wound care. Discharge Plan Discharge Clinical Impression: Visit for wound care Patient Disposition: Home, Self-Care Condition: Stable Additional Instructions: Keep wound clean and dry. Follow up with MD or return if worsening. Prescriptions: No Action finasteride 5 mg tablet 2.5 mg PO QDAY Qty: 90 1RF cholecalciferol (vitamin D3) 125 mcg (5,000 unit) tablet 125 mcg PO DAILY cetirizine 10 mg tablet 10 mg PO DAILY niacinamide 500 mg tablet 1,000 mg PO QDAY clobetasol 0.05 % cream 1 applic topical QDAY lysine [L-Lysine] 500 mg tablet 1,000 mg PO QDAY hydroxyzine pamoate 25 mg capsule 25 - 50 mg PO TID PRN (Reason: anxiety) Qty: 90 3RF triamcinolone acetonide 0.1 % cream 1 applic topical BID Qty: 80 1RF Rx Instructions: Apply topically to affected twice daily as needed Follow Up/Referrals: Gary Hill PA-C [Primary Care Provider] - Stand Alone Forms: [employer] Info Instructions
--- OUTSIDE RECORDS SUMMARY | 2023-09-25 12:38 | XMS_ITS | Clinical Summary ---
Author Name Unknown Organization [facility] Address [place], [place] [address] Care Team Providers Care Wardrobe Specialty Worker Name Role Phone Jordan Flood Phys Of [...] repeat in 5 years, colowrap at the hospital Encounters Date Type Department Care Team Description 09/23/2023 Lab Requisition [facility] [phone] Elaine Nichols MD from Last 3 Months Immunizations Name Administration Dates Next Due Tdap [...] age to complete this topic Care Teams Wardrobe Specialty Worker Relationship Specialty Start Date End Date Jordan Flood Phys Of PCP - General 02/03/19
--- OUTSIDE RECORDS SUMMARY | 2023-09-25 12:39 | XMS_ITS | Encounter Summary ---
Author Name Unknown Organization [facility] Address [address] [place] [id number] Care Team Providers Care Foreign Correspondent Name Role Phone Pam Walters MD Primary Care Provider [phone] Taty Jacob Primary Care Provider [phone] Encounter Details Date Type Department Care Team (Late st Contact Info) Description 11/22/2011 [facility] Medical Advice [address] [address] Pam Walters MD [address] [place] [id number] Social History Tobacco Use Types Packs/Day Years [...] on filedocumented in this encounter Care Teams Foreign Correspondent Relationship Specialty Start Date End Date Pam Walters MD PCP - General Family Practice 03/12/10 10/10/13 Taty Jacbo [facility] [address] [place] [address] PCP - General Nurse Practitioner 10/11/13 documented as of this encounter
--- OUTSIDE RECORDS SUMMARY | 2023-09-25 12:39 | XMS_ITS | Encounter Summary ---
Author Name Unknown Organization [facility] Address [address] [place] [address] Care Team Providers Care Music Therapist Name Role Phone Taty Jacob Primary Care Provider [phone] Encounter Details Date Type Department Care Team (Late st Contact Info) Description 01/29/2017 Telephone [facility] [address] [place] [address] Emma Galeana RN Social History [...] emergency number Routed to:none Emma Galeana RN [facility] documented in this encounter Plan of Treatment Not on file documented as of this encounter Visit Diagnoses Not on filedocumented in this encounter Care Teams Music Therapist Relationship Specialty Start Date End Date Taty Jacob [facility] [address] [place] [address] PCP - General Nurse Practitioner 10/11/13 documented as of this encounter
--- OUTSIDE RECORDS SUMMARY | 2023-09-25 12:39 | XMS_ITS | Encounter Summary ---
Author Name Unknown Organization [facility] Address [address] [place] [address] Care Team Providers Care Dental Ceramist Assistant Name Role Phone Pam Walters MD Primary Care Provider [phone] Taty Jacob Primary Care Provider [phone] Encounter Details Date Type Department Care Team (Late st Contact Info) Description 11/23/2011 [facility] [address] [address] [facility] Social History Tobacco Use Types Packs/Day [...] on filedocumented in this encounter Care Teams Dental Ceramist Assistant Relationship Specialty Start Date End Date Pam Walters MD PCP - General Family Practice 03/12/10 10/10/13 Taty Jacob [facility] [address] [place], [place] [id number] PCP - General Nurse Practitioner 10/11/13 documented as of this encounter
--- OUTSIDE RECORDS SUMMARY | 2023-09-25 12:39 | XMS_ITS | Data Portability ---
Author Name Unknown Address [address] [place] [address] Phone [phone] Organization [facility] Address [address] [place] [address] Care Team Providers Care General Manager Food Name Role Phone ALEX DOTSON Primary Care Provider ALEX DOTSON Referring Provider Assessment No assessment recorded. Plan of Treatment Reminders Order Date Submit Date Provider Last Modified By Organization Details Last Modified Time Details Appointments CYSTO-15 2023 11:00A M Demarco Bronson MD Not available Not available Not available Lab urinalysi s, dipstick 2022 023 [facility], [address] [facility], [address], 04/19/2023 09:56:28 urinalysi s, dipstick 2021 022 [facility], [address] [facility], [place], [address], 04/15/2022 17:03:31 urinalysi s, dipstick 2020 021 [facility], [address] [facility], [place], [address], 01/27/2021 11:08:59 Referral None recorded. Procedures None recorded. Surgeries None recorded. Imaging None recorded. Medication Orders clobetaso l 0.05 % topical cream 2022 023 VERONICA [facility] [address], [address] [place], [address], 04/19/2023 16:15:55 clobetaso l 0.05 % topical cream 2021 022 [id number] [facility] [address], [address] [place], [address], 04/19/2023 08:50:36 Patient TargetsNo targets recorded. Patient InstructionsNo instructions recorded. Reason for Referral None Reported. Results Created Date Observation Date Name Description Value Unit Range Abnormal Flag LastModifiedBy Organization Detail LastModifiedTime 01/28/2001/27/2021 urina lysis , dipst ick color -advantus yellow yellow Not Available [facility] [address] [place] [address], [place], [address], 01/27/2021 11:08:59 01/28/20 21 01/27/2021 urina lysis , dipst ick appearance -advantus clear clear Not Available [facility] [address] [place] [address], [place], [address], 01/27/2021 11:08:59 01/28/20 21 01/27/2021 urina lysis , dipst ick glucose -advantus negati ve mg/dL negati ve Not Available [facility] [address] [place] [address] [address], [place], [address], 01/27/2021 11:08:59 01/28/20 21 01/27/2021 urina lysis , dipst ick bilirubin -advantus negati ve negati ve Not Available [facility] [address] [place] [address] [address], [place], [address], 01/27/2021 11:08:59 01/28/20 21 01/27/2021 urina lysis , dipst ick ketones -advantus negati ve mg/dL negati ve Not Available [facility] [address] [place] [address], [place], [address], 01/27/2021 11:08:59 01/28/20 21 01/27/2021 urina lysis , dipst ick sp. gravity -advantus <=1.00 5 1.010- 1.025 Not Available [facility] [address] [place] [address] [address], [place], [address], 01/27/2021 11:08:59 01/28/20 21 01/27/2021 urina lysis , dipst ick pH -advantus 6.5 5.0-8. 0 Not Available [facility] [address] [place] [address], [place], [address], 01/27/2021 11:08:59 01/28/20 21 01/27/2021 urina lysis , dipst ick protein -advantus negati ve mg/dL negati ve Not Available [facility] [address] [place] [address], [place], [address], 01/27/2021 11:08:59 01/28/20 21 01/27/2021 urina lysis , dipst ick urobilinogen -advantus 0.2 normal Not Available [facility] [address] [place] [address], [place], [address], 01/27/2021 11:08:59 01/28/20 21 01/27/2021 urina lysis , dipst ick nitrites -advantus negati ve negati ve Not Available [facility] [address] [place] [address], [place], [address], 01/27/2021 11:08:59 01/28/20 21 01/27/2021 urina lysis , dipst ick blood -advantus negati ve negati ve Not Available [facility] [address] [place] [address], [place], [address], 01/27/2021 11:08:59 01/28/20 21 01/27/2021 urina lysis , dipst ick leukocytes -advantus small negati ve abnormal Not Available [facility] [address] [place] [address], [place], [address], 01/27/2021 11:08:59 01/28/20 21 01/27/2021 urina lysis , dipst ick performed by pham Vital Not Available [facility] [address] [place] [address], [place], [address], 01/27/2021 11:08:59 01/28/20 21 01/27/2021 urina lysis , dipst ick total urine volume (mL) 40 /mL Not Available [facility] [address] [place] [address], [place], [address], 01/27/2021 11:08:59 01/28/20 21 01/27/2021 urina lysis , micro scopi c U-WBC 0 - 2 [hpf] 0 - 2 Not Available [facility] [address] [place] [address], [place], [address], 01/27/2021 11:09:03 01/28/20 21 01/27/2021 urina lysis , micro scopi c U-RBC 0 - 2 [hpf] 0 - 2 Not Available [facility] [address] [place] [address], [place], [address], 01/27/2021 11:09:03 01/28/20 21 01/27/2021 urina lysis , micro scopi c bacteria small [hpf] negati ve abnormal Not Available [facility] [address] [place] [address], [place], [address], 01/27/2021 11:09:03 01/28/20 21 01/27/2021 urina lysis , micro scopi c squamous epi small /lpf negati ve,sma ll Not Available [facility] [address] [place] [address], [place], [address], 01/27/2021 11:09:03 04/15/20 22 04/15/2022 UA DIP CS ADVAN TUS color -advantus yellow yellow Not Available [facility] [address] [place] [address], [place], [address], 04/15/2022 17:03:31 04/15/20 22 04/15/2022 UA DIP CS ADVAN TUS appearance -advantus clear clear Not Available [facility] [address] [place] [address], [place], [address], 04/15/2022 17:03:31 04/15/20 22 04/15/2022 UA DIP CS ADVAN TUS glucose -advantus negati ve mg/dL negati ve Not Available [facility] [address] [place] [address], [place], [address], 04/15/2022 17:03:31 04/15/20 22 04/15/2022 UA DIP CS ADVAN TUS bilirubin -advantus negati ve negati ve Not Available [facility] [address] [place] [address], [place], [address], 04/15/2022 17:03:31 04/15/20 22 04/15/2022 UA DIP CS ADVAN TUS ketones -advantus negati ve mg/dL negati ve Not Available [facility] [address] [place] [address], [place], [address], 04/15/2022 17:03:31 04/15/20 22 04/15/2022 UA DIP CS ADVAN TUS sp. gravity -advantus 1.015 1.010- 1.025 Not Available [facility] [address] [place] [address], [place], [address], 04/15/2022 17:03:31 04/15/20 22 04/15/2022 UA DIP CS ADVAN TUS pH -advantus 6.5 5.0-8. 0 Not Available [facility] [address] [place] [address], [place], [address], 04/15/2022 17:03:31 04/15/20 22 04/15/2022 UA DIP CS ADVAN TUS protein -advantus negati ve mg/dL negati ve Not Available [facility] [address] [place] [address], [place], [address], 04/15/2022 17:03:31 04/15/20 22 04/15/2022 UA DIP CS ADVAN TUS urobilinogen -advantus 0.2 normal Not Available [facility] [address] [place] [address], [place], [address], 04/15/2022 17:03:31 04/15/20 22 04/15/2022 UA DIP CS ADVAN TUS nitrites -advantus negati ve negati ve Not Available [facility] [address] [place] [address], [place], [address], 04/15/2022 17:03:31 04/15/20 22 04/15/2022 UA DIP CS ADVAN TUS blood -advantus negati ve negati ve Not Available [facility] [address] [place] [address], [place], [address], 04/15/2022 17:03:31 04/15/20 22 04/15/2022 UA DIP CS ADVAN TUS leukocytes -advantus modera te negati ve abnormal Not Available [facility] [address] [place] [address], [place], [address], 04/15/2022 17:03:31 04/15/20 22 04/15/2022 UA DIP CS ADVAN TUS performed by esperanza Simmons Not Available [facility] [address] [place] [address], [place], [address], 04/15/2022 17:03:31 04/15/20 22 04/15/2022 UA DIP CS ADVAN TUS total urine volume (mL) 25 /mL Not Available [facility] [address] [facility] [address], [place], [address], 04/15/2022 17:03:31 04/15/20 22 04/15/2022 UA MICRO SCOPI C U-WBC 2 - 5 [hpf] 0 - 2 abnormal Not Available [facility] [address] [place] [address], [place], [address], 04/15/2022 17:03:41 04/15/20 22 04/15/2022 UA MICRO SCOPI C U-RBC 0 - 2 [hpf] 0 - 2 Not Available [facility] [address] [place] [address], [place], [address], 04/15/2022 17:03:41 04/15/20 22 04/15/2022 UA MICRO SCOPI C bacteria small [hpf] negati ve abnormal Not Available [facility] [address] [place] [address], [place], [address], 04/15/2022 17:03:41 04/15/20 22 04/15/2022 UA MICRO SCOPI C squamous epi modera te /lpf negati ve,sma ll abnormal Not Available [facility] [address] [place] [address], [place], [address], 04/15/2022 17:03:41 04/19/20 23 04/19/2023 UA WITHO UT MICRO - CS URISC AN blood - uriscan negati ve negati ve Not Available [facility] [address] [place] [address], [place], [address], 04/19/2023 09:56:27 04/19/20 23 04/19/2023 UA WITHO UT MICRO - CS URISC AN bilirubin - uriscan negati ve mg/dL negati ve Not Available [facility] [address] [place] [address], [place], [address], 04/19/2023 09:56:27 04/19/20 23 04/19/2023 UA WITHO UT MICRO - CS URISC AN urobilinogen - uriscan normal mg/dL normal Not Available [facility] [address] [facility] [address], [place], [address], 04/19/2023 09:56:27 04/19/20 23 04/19/2023 UA WITHO UT MICRO - CS URISC AN ketones - uriscan negati ve mg/dL negati ve Not Available [facility] [address] [place] [address], [place], [address], 04/19/2023 09:56:27 04/19/20 23 04/19/2023 UA WITHO UT MICRO - CS URISC AN protein - uriscan negati ve mg/dL negati ve Not Available [facility] [address] [place] [address], [place], [address], 04/19/2023 09:56:27 04/19/20 23 04/19/2023 UA WITHO UT MICRO - CS URISC AN nitrites - uriscan negati ve negati ve Not Available [facility] [address] [place] [address], [place], [address], 04/19/2023 09:56:27 04/19/20 23 04/19/2023 UA WITHO UT MICRO - CS URISC AN glucose - uriscan negati ve mg/dL negati ve Not Available [facility] [address] [place] [address], [place], [address], 04/19/2023 09:56:27 04/19/20 23 04/19/2023 UA WITHO UT MICRO - CS URISC AN pH - uriscan 8.00 5.00-9 .00 Not Available [facility] [address] [place] [address], [place], [address], 04/19/2023 09:56:27 04/19/20 23 04/19/2023 UA WITHO UT MICRO - CS URISC AN sp. gravity - uriscan 1.01 1.01-1 .03 Not Available [facility] [address] [facility] [address], [place], [address], 04/19/2023 09:56:27 04/19/20 23 04/19/2023 UA WITHO UT MICRO - CS URISC AN leukocytes - uriscan negati ve negati ve Not Available [facility] [address] [facility] [address], [place], [address], 04/19/2023 09:56:27 04/19/20 23 04/19/2023 UA WITHO UT MICRO - CS URISC AN color - uriscan yellow lt. yellow ;yello w Not Available [facility] [address] [facility] [address], [place], [address], 04/19/2023 09:56:27 04/19/20 23 04/19/2023 UA WITHO UT MICRO - CS URISC AN clarity - uriscan clear clear Not Available [facility] [address] [facility] [address], [place], [address], 04/19/2023 09:56:27 04/19/2004/19/2023 UA WITHO UT MICRO - CS URISC AN total urine volume (mL) 40 /mL Not Available [facility] [address] [place] [address], [place], [address], 04/19/2023 09:56:27 Result Notes None recorded. Problems Name Status Onset Date Resolution Date Notes Provider Name and Address Organization Details Recorded Time Microscopic hematuria Active 019 R31.21 : Microscopic hematuria Not Available [facility] 0 00:18:24 Abdominal pain Active 019 R10.9 : Abdominal pain Not Available [facility] 0 00:18:24 Malignant neoplasm of lateral wall of urinary bladder Active 019 C67.2 : Malignant neoplasm of lateral wall of urinary bladder Not Available [facility] 0 00:18:24 Problem Notes None recorded. Procedures Surgical History Date Name Laterality Status Provider Name and Address Organization Details Recorded Time 023 CystoscopyFemale completed Jenn Eli null, [facility] 04/14/2023 09:38:41 022 CystoscopyFemale completed Demarco Bronson MD [address] [facility], [place], [address], [facility] 04/15/2022 16:07:08 022 Urinalysis completed Demarco Bronson MD [address] [facility],[address], [place], [address], [facility] 04/15/2022 16:07:08 022 Diagnostic colonoscopy completed Not Available [facility] 04/19/2023 08:50:32 021 CystoscopyFemale completed Demarco Bronson MD [address] [facility],[address], [place], [address], [facility] 01/27/2021 11:17:51 021 [facility] 10:41:26 019 Cystoscopy completed Not Available [facility] 01/24/2020 17:31:30 019 Removal of thyroid completed Not Available [facility] 01/24/2020 17:31:30 019 Cystoscopy and treatment completed Not Available [facility] 01/24/2020 17:31:30 019 Cystoscopy completed Not Available [facility] 01/24/2020 17:31:30 Removal of gallbladder completed Not Available [facility] 01/24/2020 17:31:30 Hip arthr0 w/synovectomy completed Not Available [facility] 01/24/2020 17:31:30 Knee arthroscopy/surgery completed Not Available [facility] 01/24/2020 17:31:30 Total hysterectomy completed Not Available [facility] 01/24/2020 17:31:30 Imaging Results None recorded. Procedure Notes None recorded. Medical Equipment None Reported. Allergies Allergen ID Allergen Name Allergen Category Reaction Reaction Severity Criticality Documentation Date Start Date Code Code System Note Provider Name and Address Organization Details Recorded Time Penicilli n Not available Not available Not available Not available 01/23/2020 68603 RxNorm Not Available [facility] 23:50:33 No known drug allergies Medications [...] Address Organization Details Last Updated DateTime 04/19/2023 614100.7318 24367 g 44.6 kg/m2 180.34 cm Not Available [facility] Note 04/19/2023 09:43:22 Date Recorded Body height Body mass index (BMI) Body weight Provider Name and Address Organization Details Last Updated DateTime 01/27/2021 180.34 cm 38.4 kg/m2 555529.9 g Harper Ro[facility] 01/27/2021 10:39:17 Social History Question Answer [...] o Information not available 01/27/2021 Preferred Language Djiboutian Information not available 01/27/2021 Number Of Pregnancies [...] History Nothing Reported. Medical History Condition Response Diabetes N Sexually Transmitted Infection N Other N Bleeding Disorder N High Blood Pressure N Kidney Stones N High Cholesterol N GERD/Acid Reflux N Heart Disease N Cancer Y Lung Disease N Depression N Gynecological HistoryNo gynecological history recorded. Obstetrics History GPAL:G 0 P 0 0 0 0 Immunizations Vaccine Type Date Status Provider Name and Address Organization Details Recorded Time SARS-COV-2 (COVID-19) vaccine, UNSPECIFIED 2021 [facility] 09:43:49 influenza, unspecified formulation 05/15/2022 [facility]23 09:43:49 influenza, recombinant, quadrivalent,inject able, preservative free 05/22/2020 completed Harper bower [facility] 04/19/2023 09:43:49 influenza, recombinant, quadrivalent,inject able, preservative free 05/25/2019 completed Harper bower [facility] 04/19/2023 09:43:49 zoster recombinant 12/13/2018 completed Harper bower [facility] 04/19/2023 09:43:49 zoster recombinant 06/21/2019 [facility] 04/19/2023 09:43:49 COVID-19, mRNA, LNP-S, PF, 100 mcg/0.5mL dose or 50 mcg/0.25mL dose 10/31/2020 completed Harper Granero null, [facility] 04/19/2023 09:43:49 COVID-19, mRNA, LNP-S, PF, 100 mcg/0.5mL dose or 50 mcg/0.25mL dose 11/28/2020 completed Harper Granero null, [facility] 04/19/2023 09:43:49 COVID-19, mRNA, LNP-S, PF, 100 mcg/0.5mL dose or 50 mcg/0.25mL dose 08/02/2021 completed Harper Granero null, [facility] 04/19/2023 09:43:49 Tdap 02/03/2019 completed Harper Granero null, [facility] 04/19/2023 09:43:49 Tdap 06/06/2012 completed Harper Granero null, [facility] 04/19/2023 09:43:49 Influenza, seasonal, injectable 06/06/2012 [facility] 04/[facility]/2023 09:43:49 Influenza, seasonal, injectable 06/07/2011 [facility]23 09:43:49 Influenza, seasonal, injectable 06/08/2010 [facility] 04/19/2023 09:43:49 Td (adult), 2 Lf tetanus toxoid, preservative free, adsorbed 01/29/2004 completed Harper Liuero null, [facility] 04/19/2023 09:43:49 influenza, injectable, quadrivalent, preservative free 05/08/2013 completed Harper Granero null, [facility] 04/19/2023 09:43:49 influenza, injectable, quadrivalent, preservative free 05/17/2017 completed Harper Granero null, [facility] 04/19/2023 09:43:49 influenza, injectable, quadrivalent, preservative free 05/25/2016 [facility] 04/19/2023 09:43:49 influenza, injectable, quadrivalent, preservative free 06/03/2015 [facility] 04/19/2023 09:43:49 influenza, injectable, quadrivalent, preservative free 06/04/2014 completed Harper bower [facility] 04/19/2023 09:43:49 Past Encounters Encounter ID Performer Location Encounter Start Date Encounter Closed Date Diagnosis/Indication [id number] [facility] [address] [place] [address],[address] [address] 01/27/2021 10:15:50 01/27/2021 12:06:11 Malignant neoplasm of lateral wall of urinary bladder [id number] [facility] [address] [place] [address],[address] [address] 04/15/2022 15:40:14 04/16/2022 09:58:22 Malignant neoplasm of lateral wall of urinary bladder Genital lichen sclerosus [id number] Demarco Bronson MD [facility] ry [address] [place] [address],[address] [address] 04/19/2023 09:40:29 04/19/2023 11:45:35 Malignant neoplasm of [...] ID Guarantor Name 04/19/2023 1 PREFERREDONE (PPO) [id number] Annalisa Christiansen Cecil [id number] Annalisa Christiansen [place] 04/15/2022 1 PREFERREDONE (PPO) [id number] Annalisa L Cecil [id number] Annalisa Tal Jacob 01/27/2021 1 PREFERREDONE (PPO) [id number] Annalisa Christiansen Jacob [id number] Annalisa Christiansen Jacob Notes Date Note Type Note Provider Name and Address Organization Details Recorded Time 01/27/2021 text/html HPI Notes: Savita christiansen is a 60-year-old female who is here for follow-up of bladder cancer. She had a 2 mm low-grade urothelial tumor treated on the left lateral wall in February 2019. Demarco Bronson MD [address] [place] [address],[address], [address], [facility] 01/27/2021 11:18:20 04/15/2022 text/html HPI [...] some of the symptoms Demarco Bronson MD [address] [place] [address],[address], [address], [facility] 04/15/2022 16:14:19 04/19/2023 text/html HPI Notes: Savita [...] created with the assistance of Jenn Eli, emergency medical services coordinator Demarco Bronson MD [address] [place] [address],[address], [place], [address], [facility] 04/19/2023 09:58:25 OBGyn Episode No OBEpisode recorded.
--- OUTSIDE RECORDS SUMMARY | 2023-09-25 12:39 | XMS_ITS | Clinical Summary ---
Author Name Unknown Organization [place] Address [address] [place] [address] Care Team Providers Care Licensed Sales Assistant Name Role Phone Taty Jacob Primary Care Provider [phone] Allergies Active Allergy Reactions Criticality Noted Date [...] C.A.D. Paternal Grandmother la te 30's of [place] Obesity Sister 1-HTN Breast Cancer No family [...] Comments Blood Pressure 130/83 10/11/2013 9:46 AM [employer]IVER Pulse 77 10/11/2013 9:46 AM [employer] Temperature 36.8 ??C (98.3 ??F) 10/11/2013 9:46 AM CS T Respiratory Rate 18 10/11/2013 9:46 AM [employer] Oxygen Saturation 99% 10/11/2013 9:46 AM [employer] Inhaled Oxygen Concentration - - Weight 117.9 kg (260 lb) 10/11/2013 9:46 AM [employer] Height 180.3 cm (5' 11) 10/11/2013 9:46 AM [employer] Body Mass Index 36.26 10/11/2013 9:46 AM [employer] Plan of Treatment Health Maintenance Due Date [...] 03/22/2015 03/22/2013, 01/14, 02/04/2011, Additional history exists GLUCOSE 12/08/2015 12/07/2012, 10/14, 12/17/2009, Additional history exists LIPID 12/07/2017 12/07/2012, 10/14, [...] age to complete this topic Care Teams Licensed Sales Assistant Relationship Specialty Start Date End Date Taty Jacob [facility] [address] [place] [address] PCP - General Nurse Practitioner 10/11/13
--- OUTSIDE RECORDS SUMMARY | 2023-09-25 12:39 | XMS_ITS | Encounter Summary ---
Author Name Unknown Organization [place] Address [address] [place] [address] Care Team Providers Care Joinery Patternmaker Name Role Phone Pam Walters MD Primary Care Provider [phone] Taty Jacob Primary Care Provider [phone] Encounter Details Date Type Department Care Team (Late st Contact Info) Description 11/12/2011 [facility] Medical Advice [address] [address] Pam Walters MD [address] [place] [address] [phone] Social History Tobacco Use Types Packs/Day Years [...] on filedocumented in this encounter Care Teams Joinery Patternmaker Relationship Specialty Start Date End Date Pam Walters MD PCP - General Family Practice 03/12/10 10/10/13 Taty Jacob [facility] [address] [place] [address] PCP - General Nurse Practitioner 10/11/13 documented as of this encounter
--- OUTSIDE RECORDS SUMMARY | 2023-09-25 12:39 | XMS_ITS | Encounter Summary ---
Author Name Unknown Organization [place] Address [address] [place] [address] Care Team Providers Care Manager Organizational Name Role Phone Pam Walters MD Primary Care Provider [phone] Taty Jacob Primary Care Provider [phone] Encounter Details Date Type Department Care Team (Late st Contact Info) Description 03/22/2013 [facility] Medical Advice [address] [address] Pam Walters MD [address] [place] [address] [phone] Social History Tobacco Use Types Packs/Day Years [...] on filedocumented in this encounter Care Teams Manager Organizational Relationship Specialty Start Date End Date Pam Walters MD PCP - General Family Practice 03/12/10 10/10/13 Taty Jacob [facility] [address] [place] [address] PCP - General Nurse Practitioner 10/11/13 documented as of this encounter
--- OUTSIDE RECORDS SUMMARY | 2023-09-25 12:39 | XMS_ITS | Encounter Summary ---
Author Name Unknown Organization [place] Address [address] [place] [address] Care Team Providers Care Gas Appliance Mechanic Name Role Phone Pam Walters MD Primary Care Provider [phone] Taty Jacob Primary Care Provider [phone] Encounter Details Date Type Department Care Team (Late st Contact Info) Description 05/11/2013 [facility] Medical Advice [address] [address] Pam Walters MD [address] [place] [address] [phone] Social History Tobacco Use Types Packs/Day Years [...] on filedocumented in this encounter Care Teams Gas Appliance Mechanic Relationship Specialty Start Date End Date Pam Walters MD PCP - General Family Practice 03/12/10 10/10/13 Taty Jacob [facility] [address] [place] [address] PCP - General Nurse Practitioner 10/11/13 documented as of this encounter
--- OUTSIDE RECORDS SUMMARY | 2023-09-25 12:39 | XMS_ITS | Encounter Summary ---
Author Name Unknown Organization [place] Address [address] [place] [address] Care Team Providers Care Raiser Helper Name Role Phone Pam Walters MD Primary Care Provider [phone] Taty Jacob Primary Care Provider Encounter Details Date Type Department Care Team (Late st Contact Info) Description 08/10/2012 [facility] [address] [place] [address] Shelia Cowart MD Social History [...] on filedocumented in this encounter Care Teams Raiser Helper Relationship Specialty Start Date End Date Pam Walters MD PCP - General Family Practice 03/12/10 10/10/13 Taty Jacob [facility] [address] [place] [address] PCP - General Nurse Practitioner 10/11/13 documented as of this encounter
--- OUTSIDE RECORDS SUMMARY | 2023-09-25 12:39 | XMS_ITS | Encounter Summary ---
Author Name Unknown Organization [place] Address [address] [place] [address] Care Team Providers Care Simplex Operator Name Role Phone Pam Walters MD Primary Care Provider [phone] Taty Jacob Primary Care Provider [phone] Encounter Details Date Type Department Care Team (Late st Contact Info) Description 01/24/2012 [facility] [address] [address] [facility] Social History Tobacco Use Types Packs/Day [...] on filedocumented in this encounter Care Teams Simplex Operator Relationship Specialty Start Date End Date Pam Walters MD PCP - General Family Practice 03/12/10 10/10/13 Taty Jacob [facility] [address] [place], [place] [phone] PCP - General Nurse Practitioner 10/11/13 documented as of this encounter
--- OUTSIDE RECORDS SUMMARY | 2023-09-25 12:39 | XMS_ITS | Encounter Summary ---
Author Name Unknown Organization [place] Address [address] [place] [address] Care Team Providers Care Fingerer Name Role Phone Pam Walters MD Primary Care Provider [phone] Taty Jacob Primary Care Provider [phone] Encounter Details Date Type Department Care Team (Late st Contact Info) Description 02/07/2012 [facility] Medical Advice [address] [address] Pam Walters MD [address] [place] [address] [phone] Social History Tobacco Use Types Packs/Day Years [...] on filedocumented in this encounter Care Teams Fingerer Relationship Specialty Start Date End Date Pam aWlters MD PCP - General Family Practice 03/12/10 10/10/13 Taty Jacob [facility] [address] [place] [address] PCP - General Nurse Practitioner 10/11/13 documented as of this encounter
--- OUTSIDE RECORDS SUMMARY | 2023-09-25 12:39 | XMS_ITS | Referral Summary ---
Author Name Unknown Organization [place] Address [address] [place] [address] Care Team Providers Care Field Artillery Cannoneer Name Role Phone Taty Jacob Primary Care Provider [phone] Allergies Active Allergy Reactions Criticality Noted Date [...] Comments Blood Pressure 130/83 10/11/2013 9:46 AM IMPROVEMENT SPEC Pulse 77 10/11/2013 9:46 AM IMPROVEMENT SPEC Temperature 36.8 ??C (98.3 ??F) 10/11/2013 9:46 AM CS T Respiratory Rate 18 10/11/2013 9:46 AM IMPROVEMENT SPEC Oxygen Saturation 99% 10/11/2013 9:46 AM IMPROVEMENT SPEC Inhaled Oxygen Concentration - - Weight 117.9 kg (260 lb) 10/11/2013 9:46 AM IMPROVEMENT SPEC Height 180.3 cm (5' 11) 10/11/2013 9:46 AM IMPROVEMENT SPEC Body Mass Index 36.26 10/11/2013 9:46 AM IMPROVEMENT SPEC Plan of Treatment Not on file Care Teams Field Artillery Cannoneer Relationship Specialty Start Date End Date Taty Jacob [facility] [address] [place], [place] [id number] PCP - General Nurse Practitioner 10/11/13
[2023-09-25 12:51] VITALS: BP 112/63; PULSE 80; RESP 20; TEMP 36.2
== END 2023-09-25 12:51 | disposition home or self-care (01) ==
LOC: ED 12:37
PROVIDERS: Emergency Provider Emergency Medicine Emergency Medical Services; PCP Physician Assistant Medical
DX: S81.801A Unspecified open wound, right lower leg, initial encounter (principal); Z48.01 Encounter for change or removal of surgical wound dressing
CPT/HCPCS: 99282; 99284

== ENCOUNTER 2023-10-17 13:41 | Outpatient (CLI) | payer BC, SELFPAY ==
--- NOTE | 2023-10-17 14:00 | MM_ITS ---
Patient: WINSTON MADRID Facility:?[facility] Patient ID:?[id number] Site Patient ID:?[id number] Site :?[id number] Study:?XRay-Breast Bilateral 3D W/CAD-10/17/2023 2:19:05 PM Ordering Physician:Gary Galan Final Report: BILATERAL SCREENING MAMMOGRAM WITH COMPUTER-AIDED DETECTION AND TOMOSYNTHESIS TECHNIQUE: CC and MLO views were obtained. These mammographic images have been obtained using full-field digital technique. These mammographic images were interpreted with the benefit of computer-aided detection. Breast Tomosynthesis was used in this interpretation. COMPARISON FILM: 09/21/22, 09/08/21, 08/14/20. FINDINGS: The breasts are almost entirely fatty. IMPRESSION: There is no radiographic evidence for malignancy. ASSESSMENT: BI-RADS Category 1: Negative RECOMMENDATION: Routine screening mammogram in 1 year. A lay language report of this examination will be provided to the patient. Je Wilson M.D. Diagnostic Radiologist [email or web address] DSM/sp R& Transcribed: 6:44 p.m. SP/Dictated by: Je Wilson MD @ 10/18/2023 8:54:00 AM Signed by:?Je Wilson MD @10/19/2023 5:43:27 AM (Electronic Signature)
== END 2023-10-17 13:42 | disposition home or self-care (01) ==
LOC: MAMMO 13:42
PROVIDERS: PCP Physician Assistant Medical; Visit Provider Physician Assistant Medical
DX: Z12.31 Encounter for screening mammogram for malignant neoplasm of breast (principal)
CPT/HCPCS: 77063; 77067

== ENCOUNTER 2024-09-12 10:09 | Outpatient (CLI) | payer BC, SELFPAY | END 2024-09-12 10:10 | disposition home or self-care (01) | PROVIDERS: PCP Physician Assistant Medical; Visit Provider Physician Assistant Medical | DX: E05.90 Thyrotoxicosis, unspecified without thyrotoxic crisis or storm (principal); I10 Essential (primary) hypertension; Z13.220 Encounter for screening for lipoid disorders | CPT/HCPCS: 80053; 80061; 84443 ==

== ENCOUNTER 2024-10-03 15:06 | Outpatient (CLI) | payer BC, SELFPAY ==
--- NOTE | 2024-10-03 15:30 | CRLHL7_ITS ---
For Patients: As a result of the Century Cures Act, medical imaging exams and procedure reports are released immediately into your electronic medical record. You may view this report before your referring provider. If you have questions, please contact your health care provider. XR DXA Bone Mineral Density (BMD) Reason for exam: Screening for osteoporosis. Current height (in): 71. Weight (lb): 235. Menopause age: Not provided. Ethnicity: White. 1. Have you had a previous hip or vertebral fracture? No. 2. Have you had any fractures during your adult life which did not result from significant trauma (e.g., auto accident)? No. 3. Did either of your parents have a hip fracture? Yes. 4. Do you smoke? No. 5. Have you ever taken Glucocorticoids? No. 6. Do you have rheumatoid arthritis? No. 7. Do you have secondary osteoporosis? No. 8. Do you drink 3 or more alcoholic drinks per day? No. 9. Are you being treated for osteoporosis? No. 10. Have you ever taken any of the following medications: Actonel, Evista, Fosamax, Miacalcin, Reclast, Boniva, Forteo, HRT (i.e., estrogen/hormone therapy), Protelos, Prolia, Vitamin D, Calcium, other ??? please specify. ANSWER: Yes, vitamin D and calcium. 11. Do you have any of the following medical conditions: Anorexia or bulimia, asthma or emphysema, end stage renal disease, hyperparathyroidism, any seizure disorders, cancer, inflammatory bowel diseases, hysterectomy, other ??? please specify. ANSWER: Yes, cancer, hysterectomy. 12. What was your maximum height (inches)? 72. 13. Do you perform weight bearing exercise regularly? No. 14. Do you regularly consume dairy products? No. 15. Do you drink caffeinated beverages? Yes. 16. At what age did your period start? 11. 17. Are you premenopausal? No. 18. How many full-term pregnancies have you had? 1. 19. Have you ever missed your period for more than 6 months in a row (not including or menopause)? Yes. TECHNIQUE: Bone mineral density study was performed using the [facility]. FINDINGS: The results of the study expressed as bone mineral density (BMD) are as follows: Lumbar spine L1 to L4: BMD: 1.224 g/cm2. T-score: 1.6. Z-score: 3.4 Radius Right 33%: BMD: 0.646 g/cm2. T-score: -0.8. Z-score: 0.9 IMPRESSION: Normal bone density. *Comparison exams done prior to 01/2020 were performed on different unit, [facility]. Shahana Ocasio M.D. Diagnostic Radiologist [email or web address] DIRK/jose miguel gillespie/Dictated by: Shahana Ocasio MD @ 10/05/2024 7:59:00 AM (Electronically Signed)
== END 2024-10-03 15:07 | disposition home or self-care (01) ==
LOC: RAD 15:07
PROVIDERS: PCP Physician Assistant Medical; Visit Provider Physician Assistant Medical
DX: Z13.820 Encounter for screening for osteoporosis (principal); Z78.0 Asymptomatic menopausal state; E05.90 Thyrotoxicosis, unspecified without thyrotoxic crisis or storm
CPT/HCPCS: 77080

== ENCOUNTER 2024-10-19 10:10 | Outpatient (CLI) | payer BC, SELFPAY | END 2024-10-19 10:11 | disposition home or self-care (01) | LOC: MAMMO 10:11 | PROVIDERS: PCP Physician Assistant Medical; Visit Provider Physician Assistant Medical | DX: Z12.31 Encounter for screening mammogram for malignant neoplasm of breast (principal) | CPT/HCPCS: 77063; 77067 ==